=== PATIENT | female | born 1930 | race Hispanic/Latino ===

== ENCOUNTER 2017-12-11 09:56 | Emergency (ER) | payer MEDICARE ==
[~2017-12-11] VITALS: Ht 157.5 cm; Wt 62.6 kg
[~2017-12-11 09:56] MED LIST: ALENDRONATE SOD70 MG PO; ARTIFICIAL TEAR15 ML OP; ATORVASTATIN CA20 MG PO; CEFDINIR300 MG PO; DICLOFENAC SODI75 MG PO; FAMOTIDINE10 MG PO; FLAGYL250 MG PO; FOSAMAX70 MG PO; HYDROXYZINE PAM25 MG PO; LOMOTIL TABLET1 EACH PO; LORATADINE-PSE1 EACH PO; MECLIZINE HCL12.5 MG PO; MECLIZINE HCL25 MG PO; MEDROL4 MG/DOSE-; MELOXICAM7.5 MG PO; METOPROLOL TART25 MG PO; MYRBETRIQ25 MG PO; NAPROXEN250 MG PO; OXYBUTYNIN CHLOR5 M1 PO; PANTOPRAZOLE SO40 MG PO; PREVACID30 MG; REFRESH TEARS15 ML; TRANSDERM-SCOP1 EACH TD; TRIAMCINOLONE A15 G3 TOP; ULTRAM50 MG PO; Z.0.MACROBID 100 M10 PO; Z.1.LANSOPRAZOLE30 M; fentanyl patches
--- OUTSIDE RECORDS SUMMARY | 2017-12-11 09:59 | XMS REPORT ---
Author [facility] Address Unknown Phone Unavailable Care Team Providers Care Bander And Cellophaner Machine Helper Name Role Phone JOSE GRAF Unavailable Unavailable Problems This patient has no known problems. Allergies, Adverse Reactions, Alerts This patient has no known allergies or adverse reactions. Medications This patient has no known medications. Results Test Description Test Time Test Comments Text Results Atomic Results Result Comments CT ABDOMEN/PELVIS W [place] [id number] Patient Name: NICK CURRIE MR #: [id number] : 1930 Age/Sex: 87/F Req #: [id number] Adm Physician: Ordered by: RAMIN PALMER MD Report # : [id number] Location: ER Room/Bed: Procedure: [id number] CT/CT ABDOMEN/PELVIS W Exam Date: Exam Time: REPORT STATUS: Signed EXAM: CT ABDOMEN/PELVIS W DATE: 09/10/2017 8: 28 PM INDICATION: Abdominal pain, nausea, diarrhea, lower abdominal pain COMPARISON: 09/04/2016 TECHNIQUE: The abdomen and pelvis were scanned using a multidetector helical scanner. Coronal and sagittal reformations were obtained. Routine protocol performed. IV Contrast: 100 ml Isovue 370 FINDINGS: LOWER THORAX: Scattered atelectasis with more nodular 1.6 cm right basilar opacity on image 17. Stable visualized 5 mm pulmonary nodules. LIVER/BILIARY: No masses. Common bile duct measures mildly enlarged, 9 mm, new from prior. No intrahepatic biliary ductal dilation. GALLBLADDER: Unremarkable SPLEEN: Unremarkable PANCREAS: Unremarkable ADRENALS: No nodules KIDNEYS: Symmetric perfusion. Stable too small to characterize bilateral renal hypodensities. No hydronephrosis. GI TRACT: Extensive diverticulosis. No bowel obstruction. VESSELS: Moderate atherosclerotic changes. PERITONEUM/RETROPERITONEUM: No free air or fluid LYMPH NODES: No lymphadenopathy REPRODUCTIVE ORGANS/BLADDER: Status post hysterectomy. BONES: Multilevel degenerative changes with multilevel height loss, grossly unchanged. IMPRESSION: 1. No explanation for symptoms. Extensive diverticulosis without diverticulitis. 2. New mild extrahepatic biliary ductal dilation. Correlate with bilirubin and consider MRI/MRCP if there is concern for distal obstructing stone. Signed by: Dr Sara Gomez MD on 9:58 PM Dictated By: SARA GOMEZ MD 57 Transcribed By: JOSE on 09/10/172157 COPY TO: RAMIN PALMER MD
[2017-12-11] MEDS ORDERED: SODIUM CHLORIDE 0.9% 1000ML 1,000 ML IV STA (10:16)
[2017-12-11] MEDS ORDERED: ONDANSETRON HCL INJ 2 MG/ML VIAL IV STA (10:16)
[2017-12-11] MEDS ORDERED: MORPHINE SULFATE 2 MG/ML SYR IV STA (10:16)
[2017-12-11] MEDS ORDERED: PANTOPRAZOLE 40 MG 10ML VIAL IV STA (10:16)
[2017-12-11 10:44] LABS: BASOPHILS # (AUTO) 0.1 (0.0-0.1); BASOPHILS % 0.6 % (0.0-1.0); EOSINOPHILS # (AUTO) 0.4 (0.0-0.4); EOSINOPHILS % 3.9 % (0.0-6.0); HEMATOCRIT 35.4 % (34.2-44.1); HEMOGLOBIN 11.6 g/dL (12.0-16.0); LYMPHOCYTES % 20.3 % (18.0-39.1); MEAN CORPUSCULAR HEMOGLOBIN 30.4 pg (28-32); MEAN CORPUSCULAR HGB CONC 32.8 g/dL (31-35); MEAN CORPUSCULAR VOLUME 92.9 fL (81-99); MONOCYTES # (AUTO) 0.9 (0.2-0.8); MONOCYTES % 8.7 % (4.4-11.3); NEUTROPHILS # (AUTO) 6.5 (2.1-6.9); NEUTROPHILS % 66.3 % (38.7-80.0); PLATELET COUNT 243 x10e3/uL (140-360); RED BLOOD COUNT 3.81 x10e6/uL (3.6-5.1); RED CELL DISTRIBUTION WIDTH 12.9 % (11.7-14.4)
[2017-12-11 10:50] LABS: BILIRUBIN,URINE NEGATIVE (NEGATIVE); KETONES,URINE NEGATIVE (NEGATIVE); LEUKOCYTE ESTERASE ,URINE NEGATIVE (NEGATIVE); NITRITE,URINE NEGATIVE (NEGATIVE); PROTEIN,URINE DIPSTICK NEGATIVE (NEGATIVE); URINE UROBILINOGEN 0.2 mg/dL (0.2 - 1)
[2017-12-11 10:55] LABS: CLARITY,URINE HAZY (CLEAR); COLOR,URINE YELLOW (YELLOW)
[2017-12-11 11:05] LABS: ALBUMIN 3.7 g/dL (3.5-5.0); ANION GAP 11.7 mmol/L (8-16); CREATININE, SERUM 0.9 mg/dL (0.57-1.11); MAGNESIUM 2.2 MG/DL (1.3-2.1); POTASSIUM 3.7 mmol/L (3.5-5.1)
[2017-12-11] MEDS ORDERED: DIATRIZOATE MEGL/DIATRIZOA SOD 30 ML BTL PO ONE (12:09)
[2017-12-11 13:54] LABS: BACTERIA,URINE RARE /HPF; EPITHELIAL CELLS,URINE RARE /LPF
--- NOTE | 2017-12-11 14:05 | Diagnostic Imaging Report ---
PROCEDURE: CT ABDOMEN AND PELVIS WITH CONTRAST TECHNIQUE: The abdomen and pelvis were scanned utilizing a multidetector helical scanner from the diaphragm to the lesser trochanter after the IV administration of 100 cc of Isovue 370 and the oral administration of dilute Gastrografin. Coronal and sagittal multiplanar reformations were obtained. COMPARISON: [facility], CT, CT ABDOMEN/PELVIS WO, 07/29/2011, 0:17. [facility], CT, CT ABDOMEN/PELVIS W, 09/10/2017, 21:27. INDICATIONS: RIGHT LOWER QUADRANT PAIN FINDINGS: LOWER THORAX: Stable 5 mm nodule in the lateral right lower lobe since 2010. Stable scarring in the lingula. HEPATOBILIARY: No focal hepatic lesions. No biliary ductal dilatation. The gallbladder is moderately distended. No stones, sludge, wall thickening, or pericholecystic fluid SPLEEN: No splenomegaly. PANCREAS: No focal masses or ductal dilatation. ADRENALS: No adrenal nodules. KIDNEYS/URETERS: No hydronephrosis, stones, or solid mass lesions. Stable 1.0 cm, mostly exophytic simple cyst in the mid to inferior right kidney (series 2, image 33). PELVIC ORGANS/BLADDER: Bladder is unremarkable. Uterus is absent. No adnexal masses. PERITONEUM / RETROPERITONEUM: No free air or fluid. LYMPH NODES: No lymphadenopathy. VESSELS: Atherosclerotic calcification of the abdominal aorta and iliac vessels. GI TRACT: No bowel dilation or evidence of obstruction. Unchanged extensive descending and sigmoid colon diverticulosis, without diverticulitis. Appendix is not visualized, however, there are no pericecal/pericolonic inflammatory changes. BONES AND SOFT TISSUES: No aggressive lytic lesions. Multilevel degenerative disc changes in the thoracic spine. Generalized osteopenia. Stable lumbar and lower thoracic old Compression deformities. IMPRESSION: 1. no acute abdominopelvic abnormalities. Specifically, no acute abnormal findings in the right lower quadrant to explain the patient's pain. 2. Stable distal descending and sigmoid diverticulosis, without diverticulitis. 3. Stable 5 mm nodule in the lateral right lower lobe since 2010, which is presumed benign. No further followup is indicated. Umair He M.D. Dictated by: Umair He M.D. on 12/11/2017 at 14:14 Electronically approved by: Umair He M.D. on 12/11/2017 at 14:14
[2017-12-11] MEDS ORDERED: SODIUM CHLORIDE 0.9% 50ML 50 ML ONE (14:31)
[2017-12-11] MEDS ORDERED: IOPAMIDOL 370 MG/ML 200 ML INFUS..BTL INJ ONE (14:31)
[2017-12-11 14:47] VITALS: BP 166/67
== END 2017-12-11 14:59 | disposition home or self-care (01) ==
LOC: ER 09:56
DX: R10.84 Generalized abdominal pain (principal); R10.31 Right lower quadrant pain; R19.7 Diarrhea, unspecified
CPT/HCPCS: 36415; 74177; 80053; 81001; 82150; 83690; 83735; 85025; 87086; 99284; J2270; J2405; J7030; Q9967

== ENCOUNTER 2018-01-07 15:10 | Emergency (ER) | payer MEDICARE ==
[~2018-01-07] VITALS: Ht 157.5 cm; Wt 62.6 kg
--- OUTSIDE RECORDS SUMMARY | 2018-01-07 15:13 | XMS REPORT | Continuity of Care Document ---
Author Author [facility] Organization [facility] Address [address] [place] [address] Phone Unavailable Care Team Providers Care Panama Hat Smearer Name Role Phone AFUA TATE DO PCP Insurance Providers Guarantor Giselle Currie Address [address] [place] [address] Email [email or web address] Payer A[employer]na Medicare Replacement Policy Number [id number] Subscriber's Name Giselle Currie Relationship 18 Self / Same As Patient Effective Date 97 Advance Directives Directive Response Recorded Date/Time Does the patient have an advance directive? No 09/11/17 1:04am If yes, is advance directive on file with [facility]? No 09/11/17 1:04am If not on file with [facility] will patient provide a copy? No 09/11/17 1:04am Do you have a Directive to Physician? No 12/11/17 10:37am Do you have a Medical Power of Manager Film? No 12/11/17 10:37am Do you have an out of hospital Do Not Resuscitate Order? No 12/11/17 10:37am Do you have any special needs we should be aware of? No 12/11/17 10:37am Do you have a support person here with you today? Yes 12/11/17 10:37am Did patient receive Notice of Privacy Practices? Yes 12/11/17 10:37am Did patient receive patient rights and responsibilities? Yes 12/11/17 10:37am Problems Medical Problem Onset Date Status Abdominal pain Unknown Atrial fibrillation 07/03/2016 Acute Atrial fibrillation, new onset 07/03/2016 Acute Dehydration Unknown Dizziness Unknown Acute Elevated LFTs Unknown Hematochezia Unknown Vomiting and diarrhea Unknown Weakness Unknown Acute Medications Current Home Medications Medication Dose Units Route Directions Days Qty Instructions Start Date Atorvastatin Calcium 20 Mg Tablet 20 Mg Oral Bedtime 30 Tab Metoprolol Tartrate 25 Mg Tablet 12.5 Mg Oral Twice A Day Pantoprazole Sodium (Protonix) 40 Mg Tablet. 40 Mg Oral Daily Past Home Medications Medication Directions Ordered Status Alendronate Sodium (Fosamax) 70 Mg Tablet, 70 Mg Oral Weekly Discontinued Alendronate Sodium 70 Mg Tablet, 70 Mg Oral Once Discontinued Carboxymethylcellulose Sodium (Refresh Tears) 15 Ml Drops, As Needed Discontinued Cefdinir (Omnicef) 300 Mg Capsule, Oral Twice A Day Discontinued Dextran 70/Hypromellose (Artificial Tears Eye Drops) 15 Ml Drops, 1 Drop Ophthalmic Every Two Hours as needed for Dry Eye Discontinued Diclofenac Sodium 75 Mg Tablet., 75 Mg Oral Daily Discontinued Diphenoxylate Hcl/Atropine (Lomotil Tablet) 1 Each Tablet, 2.5 Mg Oral Three Times A Day Discontinued Famotidine 10 Mg Tablet, 10 Mg Oral As Needed Discontinued Fentanyl Patches , Q Three Days 12MCG/H Discontinued Hydroxyzine Pamoate 25 Mg Capsule, 25 Mg Oral Twice A Day Discontinued Lansoprazole (Prevacid) 30 Mg Capsule.dr, Daily Discontinued Lansoprazole 30 Mg Capsule.dr, Daily Discontinued Loratadine/Pseudoephedrine (Loratadine-Pseudoephed 10-240) 1 Each Tab.er.24h, 10 Oral Every Morning Discontinued Meclizine Hcl 25 Mg Tablet, Oral Twice A Day as needed for Dizziness Discontinued Meclizine Hcl 25 Mg Tablet, 25 Mg Oral As Needed Discontinued Meloxicam 7.5 Mg Tablet, 15 Mg Oral Daily Discontinued Methylprednisolone (Medrol Dose Pack) 4 Mg/Dose Pack Tab, Discontinued Metronidazole (Flagyl) 250 Mg Tablet, 250 Mg Oral Three Times A Day Discontinued Mirabegron (Myrbetriq) 25 Mg Tab.er.24h, 25 Mg Oral Daily Discontinued Naproxen 250 Mg Tablet, 375 Mg Oral Twice A Day Discontinued Nitrofurantoin/Nitrofuran Mac (Macrobid 100 Mg Capsule) 100 Mg Capsule, 100 Mg Oral Daily Discontinued Oxybutynin Chloride (Oxybutynin Chloride Er) 5 Mg Tab.er.24, 15 Mg Oral Daily Discontinued Scopolamine Hydrobromide (Transderm-Scop) 1 Each Patch.td72, 1.5 Mg Transderm As Needed Discontinued Tramadol Hcl (Ultram) 50 Mg Tablet, 50 Mg Oral Daily Discontinued Triamcinolone (Triamcinolone Acetonide) 15 Gm Oint, Gm Topically Twice A Day Discontinued Family History Relationship Condition Age at Onset Recorded Date/Time 11 Brother FH: cancer of digestive organ Not Recorded 07/03/2016 6:46pm 09 Sister FH: cancer of digestive organ Not Recorded 07/03/2016 6:46pm Social History Social History Problem Response Recorded Date/Time Onset Date Status Hx Psychiatric Problems No 09/11/2017 1:04am Not Applicable Not Applicable Hx Eating Disorder No 09/11/2017 1:04am Not Applicable Not Applicable Hx Substance Use Disorder No 09/11/2017 1:04am Not Applicable Not Applicable Hx Depression No 09/11/2017 1:04am Not Applicable Not Applicable Hx Alcohol Use No 09/11/2017 1:04am Not Applicable Not Applicable Hx Substance Use Treatment No 09/11/2017 1:04am Not Applicable Not Applicable Hx Physical Abuse No 09/11/2017 1:04am Not Applicable Not Applicable Smoking Status Start Date Stop Date Never Smoker Hospital Discharge Instructions No hospital discharge instruction information available. Plan of Care Discharge Date 12/11/17 2:59pm Disposition HOME, SELF-CARE Condition at Discharge Stable Instructions/Education Provided Abdominal Pain - Adult Prescriptions See Medication Section Referrals AFUA TATE DO Order Date: Call for an appointment Address: [address] [place] [id number] Additional Instructions/Education Take medication as prescribed Follow up with GI doctor in a couple of days Functional Status No functional status information available. Allergies, Adverse Reactions, Alerts Allergen Type Severity Reaction Status Last Updated Penicillin Allergy Unknown Active 09/10/17 Codeine Allergy Mild itch Active 12/11/17 Immunizations No immunization information available. Vital Signs Acute Vital Signs Vital Response Date/Time Temperature (Fahrenheit) 98.9 degrees F (97.6 - 99.5) 09/12/2017 4:00pm Pulse Pulse Rate (adult) 52 bpm (60 - 90) 12/11/2017 2:47pm Respiratory Rate 20 bpm (12 - 24) 12/11/2017 2:47pm Blood Pressure 166/67 mm Hg 12/11/2017 2:47pm Height 5 ft 2 in 12/11/2017 10:06am Weight 138 lb 12/11/2017 10:06am Body Mass Index 25.2 kg/m^2 12/11/2017 10:06am Results Laboratory Results Test Name Result Units Flags Reference Collection Date/Time Result Date/ Time Comments Urine Hyaline Casts 0-1 0-1 09/10/2017 8:20pm 09/10/2017 9:12pm Urine Mucus FEW H RARE 09/10/2017 8:20pm 09/10/2017 9:12pm Vitamin B12 Level 591 pg/mL 213-816 09/11/2017 6:36am 09/11/2017 1: 19pm Folate 31.9 ng/mL H 7.0-15.4 09/11/2017 6:36am 09/11/2017 2:08pm Thyroid Stimulating Hormone (TSH) 1.246 uIU/mL 0.350-4.940 09/11/2017 6: 36am 09/11/2017 12:56pm White Blood Count 9.76 x10e3/uL 4.8-10.8 12/11/2017 10:32am 12/11/2017 10:54am Red Blood Count 3.81 x10e6/uL 3.6-5.1 12/11/2017 10:32am 12/11/2017 10: 54am Hemoglobin 11.6 g/dL L 12.0-16.0 12/11/2017 10:32am 12/11/2017 10:54am Hematocrit 35.4 % 34.2-44.1 12/11/2017 10:32am 12/11/2017 10:54am Mean Corpuscular Volume 92.9 fL 81-99 12/11/2017 10:32am 12/11/2017 10: 54am Mean Corpuscular Hemoglobin 30.4 pg 28-32 12/11/2017 10:32am 2017 10:54am Mean Corpuscular Hemoglobin Concent 32.8 g/dL 31-35 12/11/2017 10:3212/11/2017 10:54am Red Cell Distribution Width 12.9 % 11.7-14.4 12/11/2017 10:322017 10:54am Platelet Count 243 x10e3/uL 140-360 12/11/2017 10:12/11/2017 10: 54am Neutrophils (%) (Auto) 66.3 % 38.7-80.0 12/11/2017 10:am 12/11/2017 10:54am Lymphocytes (%) (Auto) 20.3 % 18.0-39.1 12/11/2017 10:12/11/2017 10:54am Monocytes (%) (Auto) 8.7 % 4.4-11.3 12/11/2017 10:am 12/11/2017 10: 54am Eosinophils (%) (Auto) 3.9 % 0.0-6.0 12/11/2017 10:am 12/11/2017 10: 54am Basophils (%) (Auto) 0.6 % 0.0-1.0 12/11/2017 10:am 12/11/2017 10: 54am IM GRANULOCYTES % 0.2 % 0.0-1.0 12/11/2017 10:12/11/2017 10:54am Neutrophils # (Auto) 6.5 2.1-6.9 12/11/2017 10:am 12/11/2017 10: 54am Lymphocytes # (Auto) 2.0 1.0-3.2 12/11/2017 10:am 12/11/2017 10: 54am Monocytes # (Auto) 0.9 H 0.2-0.8 12/11/2017 10:am 12/11/2017 10: 54am Eosinophils # (Auto) 0.4 0.0-0.4 12/11/2017 10:32am 12/11/2017 10: 54am Basophils # (Auto) 0.1 0.0-0.1 12/11/2017 10:32am 12/11/2017 10:54am Absolute Immature Granulocyte (auto 0.02 x10e3/uL 0-0.1 12/11/2017 10: 32am 12/11/2017 10:54am Urine Color YELLOW YELLOW 12/11/2017 10:16am 12/11/2017 10:55am Urine Clarity HAZY CLEAR 12/11/2017 10:16am 12/11/2017 10:55am Urine Specific [place] 1.015 1.010-1.025 12/11/2017 10:16am 2017 10:55am Urine pH 6 5 - 7 12/11/2017 10:16am 12/11/2017 10:55am Urine Leukocyte Esterase NEGATIVE NEGATIVE 12/11/2017 10:16am 2017 10:55am Urine Nitrite NEGATIVE NEGATIVE 12/11/2017 10:16am 12/11/2017 10: 55am Urine Protein NEGATIVE NEGATIVE 12/11/2017 10:16am 12/11/2017 10: 55am Urine Glucose (UA) NEGATIVE NEGATIVE 12/11/2017 10:16am 12/11/2017 10 :55am Urine Ketones NEGATIVE NEGATIVE 12/11/2017 10:16am 12/11/2017 10: 55am Urine Urobilinogen 0.2 mg/dL 0.2 - 1 12/11/2017 10:16am 12/11/2017 10: 55am Urine Bilirubin NEGATIVE NEGATIVE 12/11/2017 10:16am 12/11/2017 10: 55am Urine Blood 2+ H NEGATIVE 12/11/2017 10:16am 12/11/2017 10:55am Urine WBC NONE /HPF 0-5 12/11/2017 10:16am 12/11/2017 1:54pm Urine RBC 6-10 /HPF H 0-5 12/11/2017 10:16am 12/11/2017 1:54pm Urine Bacteria RARE /HPF NONE 12/11/2017 10:16am 12/11/2017 1:54pm Urine Epithelial Cells RARE /LPF NONE 12/11/2017 10:16am 12/11/2017 1: 54pm Sodium Level 140 mmol/L 136-145 12/11/2017 10:32am 12/11/2017 11:25am Potassium Level 3.7 mmol/L 3.5-5.1 12/11/2017 10:32am 12/11/2017 11: 25am Chloride Level 108 mmol/L H 98-107 12/11/2017 10:3212/11/2017 11: 25am Carbon Dioxide Level 24 mmol/L 22-29 12/11/2017 10:3212/11/2017 11: 25am Anion Gap 11.7 mmol/L 8-16 12/11/2017 10:3212/11/2017 11:25am Blood Urea Nitrogen 13 mg/dL 7-12/11/2017 10:3212/11/2017 11: 25am Creatinine 0.90 mg/dL 0.57-1.11 12/11/2017 10:3212/11/2017 11:25am BUN/Creatinine Ratio 14 6-25 12/11/2017 10:3212/11/2017 11:25am Estimat Glomerular Filtration Rate 60 ML/MIN 60- 12/11/2017 10:12/2017 11:25am Ranges were taken from the National Kidney Disease Education Program and the National Kidney Foundation literature. Reference ranges: 60 or greater: Normal 16-59 (for 3 consecutive months): Chronic kidney disease 15 or less: Kidney failure Glucose Level 104 mg/dL 74-118 12/11/2017 10:12/11/2017 11:25am Calcium Level 9.0 mg/dL 8.4-10.2 12/11/2017 10:3212/11/2017 11:25am Magnesium Level 2.2 MG/DL H 1.3-2.1 12/11/2017 10:12/11/2017 11: 25am Total Bilirubin 0.4 mg/dL 0.2-1.2 12/11/2017 10:3212/11/2017 11: 25am Aspartate Amino Transf (AST/SGOT) 19 IU/L 5-34 12/11/2017 10:3212/11 11:25am Alanine Aminotransferase (ALT/SGPT) 11 IU/L 0-55 12/11/2017 10:3212/2017 11:25am Total Protein 7.4 g/dL 6.5-8.1 12/11/2017 10:3212/11/2017 11:25am Albumin 3.7 g/dL 3.5-5.0 12/11/2017 10:3212/11/2017 11:25am Globulin 3.7 g/dL H 2.3-3.5 12/11/2017 10:32am 12/11/2017 11:25am Albumin/Globulin Ratio 1.0 0.8-2.0 12/11/2017 10:32am 12/11/2017 11: 25am Alkaline Phosphatase 68 IU/L 40-150 12/11/2017 10:32am 12/11/2017 11: 25am Amylase Level 62 U/L 25-125 12/11/2017 10:32am 12/11/2017 11:25am Lipase 18 U/L 8-78 12/11/2017 10:32am 12/11/2017 11:25am Procedures Procedure Status Date Provider(s) Computed tomography of abdomen and pelvis with contrast Active 09/10/17 RAMIN PALMER MD Magnetic resonance cholangiopancreatography (MRCP) without contrast Active RAMIN PALMER MD Computed tomography of abdomen and pelvis with contrast Active 12/11/17 FLACO MORTENSEN Encounters Encounter Location Arrival/Admit Date Discharge/Depart Date Attending Provider Departed Emergency Room [facility] 12/11/17 9:56am 2:59pm JOSE GRAF MD Discharged Inpatient [facility] 09/10/17 11:13pm 5:49pm ROBERTO CARLOS VILLANUEVA MD Departed Emergency Room [facility] 05/07/17 1:22pm 7:46pm JOSE GRAF MD
[2018-01-07 20:29] LABS: BILIRUBIN,URINE NEGATIVE (NEGATIVE); CLARITY,URINE SL CLOUDY (CLEAR); COLOR,URINE YELLOW (YELLOW); KETONES,URINE NEGATIVE (NEGATIVE); LEUKOCYTE ESTERASE ,URINE 2+ (NEGATIVE); NITRITE,URINE NEGATIVE (NEGATIVE); PROTEIN,URINE DIPSTICK NEGATIVE (NEGATIVE); URINE UROBILINOGEN 0.2 mg/dL (0.2 - 1)
[2018-01-07 20:42] LABS: BACTERIA,URINE RARE /HPF; EPITHELIAL CELLS,URINE FEW /LPF
== END 2018-01-07 20:55 | disposition home or self-care (01) ==
LOC: ER 15:10
DX: N76.0 Acute vaginitis (principal); B37.3 Candidiasis of vulva and vagina
CPT/HCPCS: 81001; 99282

== ENCOUNTER 2018-01-13 16:52 | Emergency (ER) | payer MEDICARE ==
[~2018-01-13] VITALS: Ht 157.5 cm; Wt 62.6 kg
[2018-01-13] MEDS ORDERED: FLECTOR1 EACH PO (17:19)
--- OUTSIDE RECORDS SUMMARY | 2018-01-13 17:39 | XMS REPORT | Continuity of Care Document ---
Author Author [facility] Organization [facility] Address [address] [place] [place] [address] Phone Unavailable Care Team Providers Care Studio Assistant Name Role Phone AFUA TATE DO PCP Insurance Providers Guarantor Giselle Currie Address [address] [place] [address] Email [email or web address] Payer [employer] Medicare Replacement Policy Number [id number] Subscriber's Name Giselle Currie Relationship 18 Self / Same As Patient Effective Date 97 Advance Directives Directive Response Recorded Date/Time Does the patient have an advance directive? No 09/11/17 1:04am If yes, is advance directive on file with [facility]? No 09/11/17 1:04am If not on file with [facility] will patient provide a copy? No 09/11/17 1:04am Do you have a Directive to Physician? No 01/07/18 6:48pm Do you have a Medical Power of Health And Safety Director? No 01/07/18 6:48pm Do you have an out of hospital Do Not Resuscitate Order? No 01/07/18 6:48pm Do you have any special needs we should be aware of? No 01/07/18 6:48pm Do you have a support person here with you today? Yes 01/07/18 6:48pm Did patient receive Notice of Privacy Practices? Yes 01/07/18 6:48pm Did patient receive patient rights and responsibilities? Yes 01/07/18 6:48pm Problems Medical Problem Onset Date Status Abdominal [...] A Day Pantoprazole Sodium (Protonix) 40 Mg Tablet.dr 40 Mg Oral Daily Past Home Medications [...] No 09/11/2017 1:04am Not Applicable Not Applicable Hospital Discharge Instructions No hospital discharge instruction information available. Plan of Care Discharge Date 01/07/18 8:55pm Disposition HOME, SELF-CARE Condition at Discharge Stable Instructions/Education Provided Yeast Infection Forms Provided Work/School Excuse Prescriptions See Medication Section Referrals AFUA TATE DO Address: [address] [place] [address] Additional Instructions/Education 1. follow up with your doctor in 1-2 days without fail 2. return to ed as needed Functional Status No functional status information available. [...] 12/11/2017 2:47pm Height 5 ft 2 in 01/07/2018 4:52pm Weight 138 lb 01/07/2018 4:52pm Body Mass Index 25.2 kg/m^2 01/07/2018 4:52pm Results Laboratory Results Test Name Result Units [...] Corpuscular Hemoglobin Concent 32.8 g/dL 31-35 12/11/2017 10:32am 12/11/2017 10:54am Red Cell Distribution Width 12.9 % 11.7-14.4 12/11/2017 10:32am 2017 10:54am Platelet Count 243 x10e3/uL 140-360 12/11/2017 10:32am 12/11/2017 10: 54am Neutrophils (%) (Auto) 66.3 % 38.7-80.0 12/11/2017 10:32am 12/11/2017 10:54am Lymphocytes (%) (Auto) 20.3 % 18.0-39.1 12/11/2017 10:32am 12/11/2017 10:54am Monocytes (%) (Auto) 8.7 % 4.4-11.3 12/11/2017 10:32am 12/11/2017 10: 54am Eosinophils (%) (Auto) 3.9 % 0.0-6.0 12/11/2017 10:32am 12/11/2017 10: 54am Basophils (%) (Auto) 0.6 % 0.0-1.0 12/11/2017 10:32am 12/11/2017 10: 54am IM GRANULOCYTES % 0.2 % 0.0-1.0 12/11/2017 10:32am 12/11/2017 10:54am Neutrophils # (Auto) 6.5 2.1-6.9 12/11/2017 10:32am 12/11/2017 10: 54am Lymphocytes # (Auto) 2.0 1.0-3.2 12/11/2017 10:32am 12/11/2017 10: 54am Monocytes # (Auto) 0.9 H 0.2-0.8 12/11/2017 10:32am 12/11/2017 10: 54am Eosinophils # (Auto) 0.4 0.0-0.4 12/11/2017 10:32am 12/11/2017 10: 54am Basophils # (Auto) 0.1 0.0-0.1 12/11/2017 10:32am 12/11/2017 10:54am Absolute Immature Granulocyte (auto 0.02 x10e3/uL 0-0.1 12/11/2017 10: 32am 12/11/2017 10:54am Sodium Level 140 mmol/L 136-145 12/11/2017 10:32am 12/11/2017 11:25am Potassium Level 3.7 mmol/L 3.5-5.1 12/11/2017 10:32am 12/11/2017 11: 25am Chloride Level 108 mmol/L H 98-107 12/11/2017 10:32am 12/11/2017 11: 25am Carbon Dioxide Level 24 mmol/L 22-29 12/11/2017 10:32am 12/11/2017 11: 25am Anion Gap 11.7 mmol/L 8-16 12/11/2017 10:32am 12/11/2017 11:25am Blood Urea Nitrogen 13 mg/dL 7-12/11/2017 10:32am 12/11/2017 11: 25am Creatinine 0.90 mg/dL 0.57-1.11 12/11/2017 10:32am 12/11/2017 11:25am BUN/Creatinine Ratio 14 6-25 12/11/2017 10:32am 12/11/2017 11:25am Estimat Glomerular Filtration Rate 60 ML/MIN 60- 12/11/2017 10:32am 12/2017 11:25am Ranges were taken from the National Kidney Disease Education Program and the National Kidney Foundation literature. Reference ranges: 60 or greater: Normal 16-59 (for 3 consecutive months): Chronic kidney disease 15 or less: Kidney failure Glucose Level 104 mg/dL 74-118 12/11/2017 10:32am 12/11/2017 11:25am Calcium Level 9.0 mg/dL 8.4-10.2 12/11/2017 10:32am 12/11/2017 11:25am Magnesium Level 2.2 MG/DL H 1.3-2.1 12/11/2017 10:32am 12/11/2017 11: 25am Total Bilirubin 0.4 mg/dL 0.2-1.2 12/11/2017 10:32am 12/11/2017 11: 25am Aspartate Amino Transf (AST/SGOT) 19 IU/L 5-34 12/11/2017 10:32am 12/11 11:25am Alanine Aminotransferase (ALT/SGPT) 11 IU/L 0-55 12/11/2017 10:32am 12/2017 11:25am Total Protein 7.4 g/dL 6.5-8.1 12/11/2017 10:32am 12/11/2017 11:25am Albumin 3.7 g/dL 3.5-5.0 12/11/2017 10:32am 12/11/2017 11:25am Globulin 3.7 g/dL H 2.3-3.5 12/11/2017 10:32am 12/11/2017 11:25am Albumin/Globulin Ratio 1.0 0.8-2.0 12/11/2017 10:32am 12/11/2017 11: 25am Alkaline Phosphatase 68 IU/L 40-150 12/11/2017 10:32am 12/11/2017 11: 25am Amylase Level 62 U/L 25-125 12/11/2017 10:32am 12/11/2017 11:25am Lipase 18 U/L 8-78 12/11/2017 10:32am 12/11/2017 11:25am Urine Color YELLOW YELLOW 01/07/2018 6:00pm 01/07/2018 8:29pm Urine Clarity SL CLOUDY CLEAR 01/07/2018 6:00pm 01/07/2018 8:29pm Urine Specific [place] 1.015 1.010-1.025 01/07/2018 6:00pm 2017 8:29pm Urine pH 6 5 - 7 01/07/2018 6:00pm 01/07/2018 8:29pm Urine Leukocyte Esterase 2+ H NEGATIVE 01/07/2018 6:00pm 01/07/2018 8: 29pm Urine Nitrite NEGATIVE NEGATIVE 01/07/2018 6:00pm 01/07/2018 8:29pm Urine Protein NEGATIVE NEGATIVE 01/07/2018 6:00pm 01/07/2018 8:29pm Urine Glucose (UA) NEGATIVE NEGATIVE 01/07/2018 6:00pm 01/07/2018 8: 29pm Urine Ketones NEGATIVE NEGATIVE 01/07/2018 6:00pm 01/07/2018 8:29pm Urine Urobilinogen 0.2 mg/dL 0.2 - 1 01/07/2018 6:00pm 01/07/2018 8: 29pm Urine Bilirubin NEGATIVE NEGATIVE 01/07/2018 6:00pm 01/07/2018 8: 29pm Urine Blood 3+ H NEGATIVE 01/07/2018 6:00pm 01/07/2018 8:29pm Urine WBC 6-10 /HPF H 0-5 01/07/2018 6:00pm 01/07/2018 8:42pm Urine RBC 11-20 /HPF H 0-5 01/07/2018 6:00pm 01/07/2018 8:42pm Urine Bacteria RARE /HPF NONE 01/07/2018 6:00pm 01/07/2018 8:42pm Urine Epithelial Cells FEW /LPF NONE 01/07/2018 6:00pm 01/07/2018 8: 42pm Procedures Procedure Status Date Provider(s) Computed tomography of abdomen and pelvis with contrast Active 09/10/17 RAMIN PALMER MD Magnetic resonance cholangiopancreatography (MRCP) without contrast Active RAMIN PALMER MD Computed tomography of abdomen and pelvis with contrast Active 12/11/17 FLACO MORTENSEN Encounters Encounter Location Arrival/Admit Date Discharge/Depart Date Attending Provider [facility] 01/07/18 3:10pm 8:55pm CHRISS ROBERTSON MD Departed Emergency Room [facility] 12/11/17 9:56am 2:59pm JOSE GRAF MD [facility] 09/10/17 11:13pm 5:49pm ROBERTO CARLOS VILLANUEVA MD [facility] 05/07/17 1:22pm 7:46pm JOSE GRAF MD
[2018-01-13 18:03] VITALS: BP 134/54
== END 2018-01-13 18:18 | disposition home or self-care (01) ==
LOC: ER 16:52
DX: B37.3 Candidiasis of vulva and vagina (principal); Z86.73 Personal history of transient ischemic attack (TIA), and cerebral infarction without residual deficits
CPT/HCPCS: 99283

== ENCOUNTER 2018-11-30 15:37 | Observation (INO) | payer MEDICARE ==
[~2018-11-30] VITALS: Ht 157.5 cm; Wt 54.4 kg
[~2018-11-30 15:37] MED LIST changes: +FLECTOR1 EACH PO
--- OUTSIDE RECORDS SUMMARY | 2018-11-30 15:41 | XMS REPORT | Summary of Care ---
Author Author [facility] [place] Organization [facility] [place] Address Unknown Phone Unavailable Encounter HQ Encntr_lorrie(FIN) [phone] Date(s): 11/28/15 - 11/28/15 [facility] [place] [address] [place] [address] [phone] Discharge Disposition: Home Attending Physician: Afshin Marie MD Vital Signs No data available for this section Problem List No data available for this section Allergies, Adverse Reactions, Alerts Substance Reaction Severity Status CODINE Active PCN Active Medications No data available for this section Results No data available for this section Immunizations No data available for this section Procedures No data available for this section Social History No data available for this section Assessment and Plan No data available for this section
--- OUTSIDE RECORDS SUMMARY | 2018-11-30 15:41 | XMS REPORT | Summary of Care ---
Author Author [facility] [place] Organization [facility] [place] Address Unknown Phone Unavailable Encounter HQ Encntr_aliteofilo(FIN) [phone] Date(s): 08/04/17 - 08/04/17 [facility] [place] [address] [place] [phone] Discharge Disposition: Home or Self Care Attending Physician: Afshin Marie MD Vital Signs [...]
--- OUTSIDE RECORDS SUMMARY | 2018-11-30 15:41 | XMS REPORT | Summary of Care ---
Author Author [facility] [place] Organization [facility] [place] Address Unknown Phone Unavailable Encounter HQ Encntr_lorrie(FIN) [phone] Date(s): 04/21/16 - 04/21/16 [facility] [place] [address] [place] [id number] [phone] Discharge Disposition: Home Attending Physician: Afshin Marie [...]
--- OUTSIDE RECORDS SUMMARY | 2018-11-30 15:41 | XMS REPORT | Continuity of Care Document ---
Author Author [facility] Interface Address Unknown Phone Unavailable Problems Problem Status Onset Date Classification Date Reported Comments Source M62.81 MUSCLE WEAKNESS 04/28/2018 Diagnosis 05/14/2018 [place] [facility] [place] [facility] Walking disability 04/27/2018 Diagnosis 05/14/2018 SNF: [facility] S22.089S UNSPECIFIED FRACTURE OF T11-T12 VERTEBRA, SEQUELA 04/27/2018 Diagnosis 05/14/2018 SNF: [facility] G89.29 OTHER CHRONIC PAIN 04/27/2018 Diagnosis 05/14/2018 SNF: [facility] Z91.81 HISTORY OF FALLING 04/27/2018 Diagnosis 05/14/2018 SNF: [facility] R53.1 WEAKNESS 04/27/2018 Diagnosis 05/14/2018 [place] [facility] [place] [facility] ACUTE UTI,PHYSICAL DECONDITIONING,WEAKNE Active 04/22/2018 [facility] pain of right hip 04/13/2018 04/16/2018 [facility] BACK PAIN Active 04/13/2018 [facility] S72.92XS UNSPECIFIED FRACTURE OF LEFT FEMUR, SEQUELA 03/11/2018 Diagnosis 05/14/2018 SNF: [facility] W19.XXXS UNSPECIFIED FALL, SEQUELA 03/11/2018 Diagnosis 05/14/2018 SNF: [facility] I10 ESSENTIAL HYPERTENSION 03/11/2018 Diagnosis 05/14/2018 SNF: [facility] 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 03/11/2018 Diagnosis 05/14/2018 SNF: [facility] 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 03/11/2018 Diagnosis 05/14/2018 SNF: [facility] INTRTROCHANTERIC FRACTURE OF FEMUR Active 03/04/2018 [facility] FX HIP Active 03/04/2018 [facility] R91.8 - OTHER NONSPECIFIC ABNORMAL FIN Active 04/25/2016 RADHA Santiago D64.9 - "ANEMIA, UNSPECIFIED" Active 04/21/2016 RADHA Santiago DISPLACED INTERTROCHANTERIC FRACTURE OF Active [facility] URINARY TRACT INFECTION, SITE NOT SPECIF Active [facility] OTHER MALAISE Active [facility] WEAKNESS Active [facility] Medications Medication Details Route Status Patient Instructions Ordering Provider Order Date Source Ibuprofen Tablet 800 MG Give 1 tablet by mouth every 8 hours as needed for Pain Oral Active 04/29/2018 SNF: [facility] Cipro Tablet 500 MG Give 1 tablet by mouth two times a day for UTI for 10 Days Oral Active 04/28/2018 [facility] Tylenol with Codeine #3 Tablet 300-30 MG Give 1 tablet by mouth every 8 hours as needed for PAIN Oral Active 04/28/2018 SNF: [facility] Protonix Tablet Delayed Release 40 MG Give 1 tablet by mouth one time a day for gerd Oral Active 04/28/2018 [facility]: [facility] Metoprolol Tartrate Tablet Give 12.5 mg by mouth two times a day for HTN Hold for SBP less than 110, HR less than 60 Oral Active 04/28/2018 SNF: [facility] Lidocaine Patch 5 % Apply to hip topically one time a day for pain and remove per schedule External Active 04/28/2018 SN[facility]: [facility] Cefdinir Capsule 300 MG Give 1 capsule by mouth two times a day for UTI for 7 Days Oral Inactive 04/28/2018 SN[facility]: [facility] Cyclobenzaprine HCl Tablet 5 MG Give 1 tablet by mouth every 8 hours as needed for Spasm Oral Active 04/28/2018 SNF: [facility] cefdinir 300 MG Oral Capsule 300 mg=1 cap, PO, [id number], X 7 day, # 14 cap, 0 Refill(s), Pharmacy: [facility]/pharmacy #[id number] Active 04/27/2018 [facility] DME Prescription See Instructions, MISC, ONCE, Use TSLO brace when upright., # 1 ea, 0 Refill(s) Active 04/27/2018 [facility] ocular lubricant solution Each Affected Eye, QID, PRN Dry Eyes, 0 Refill(s) Active 04/27/2018 [facility] Artificial Tears 1 drp, Route: Each Affected Eye, QID, Drug form: SOLN, PRN Dry Eyes, Start date: 04/27/18 13:11:00 CDT, Duration: 30 day, Stop date: 05/27/18 13:10:00 CDT Inactive 04/27/2018 [facility] Vantin 200 mg, Route: PO, Drug form: TAB, [id number], Dosing Weight 59.545, kg, Start date: 04/25/18 14:00:00 CDT, Duration: 14 day, Stop date: 05/09/18 2:00:00 CDT, ABX Indication: Urinary Tract Infection Inactive 04/25/2018 [facility] cefdinir 300 mg, 1 cap, Route: PO, Drug form: CAP, [id number], Start date: 04/25/18 14:00:00 CDT, Duration: 14 day, Stop date: 05/09/18 2:00:00 CDTNotes: (Same As: Omnicef) No Longer Active 04/25/2018 [facility] Rocephin 1 gm, Route: IVP, [id number], Dosing Weight 59.545, kg, Start date: 04/23/18 21:00:00 CDT, Duration: 7 day, Stop date: 04/29/18 21:00:00 CDT, ABX Indication: Genital Tract InfectionNotes: (Same As: Rocephin). Use with 100 mL NS and infuse over 30 min MEDICATION WASTE Product Size: 1000 mg Product Wasted: ___ mg No Longer Active 04/24/2018 [facility] Acetaminophen 325 MG / Hydrocodone Bitartrate 5 MG Oral Tablet [[place] 5/325] 1 tab, Route: PO, Drug Form: TAB, Dosing Weight 59.545, kg, Q4H, PRN Pain Score 1-3, Start date: 04/23/18 15:42:00 CDT, Duration: 30 day, Stop date: 05/23/18 15:41:00 CDTNotes: (Same as: [place] 325/5) Do not exceed 4gm/day of acetaminophen. No Longer Active 04/23/2018 [facility] Lovenox 40 mg, 0.4 mL, Route: SUB-Q, Drug form: INJ, [id number], Dosing Weight 59.545, kg, Start date: 04/23/18 9:00:00 CDT, Duration: 30 day, Stop date: 05/22/18 9:00:00 CDTNotes: (Same as: Lovenox) No Longer Active 04/23/2018 [facility] Protonix 40 mg, 1 tab, Route: PO, Drug form: ECTAB, Daily, Dosing Weight 59.545, kg, Start date: 04/23/18 9:00:00 CDT, Duration: 30 day, Stop date: 05/22/18 9:00:00 CDTNotes: Tablet should not be chewed or crushed. (Same as: Protonix) No Longer Active 04/23/2018 [facility] Lopressor 12.5 mg, 0.5 tab, Route: PO, Drug form: TAB, Q12H, Dosing Weight 59.545, kg, Start date: 04/23/18 9:00:00 CDT, Duration: 30 day, Stop date: 05/22/18 21:00:00 CDTNotes: (Same as: Lopressor) No Longer Active 04/23/2018 [facility] Lidocaine 0.05 MG/MG Transdermal Patch 1 patch, Route: TOP, Daily, Drug form: FILM, Start date: 04/23/18 9:00:00 CDT, Duration: 30 day, Stop date: 05/22/18 9:00:00 CDTNotes: Apply only once for up to 12 hours in a 24-hour period (12 hours on and 12 hours off). (Same as: Lidoderm) "Remove old patch before application of new patch" No Longer Active 04/23/2018 [facility] cyclobenzaprine 5 mg, 0.5 tab, Route: PO, Drug form: TAB, TID, Dosing Weight 59.545, kg, PRN Spasm, Start date: 04/23/18 4:27:00 CDT, Duration: 30 day, Stop date: 05/23/18 4:26:00 CDTNotes: (Same As: Flexeril) No Longer Active 04/23/2018 [facility] Acetaminophen 650 mg, 2 tab, Route: PO, Drug form: TAB, Q4H, Dosing Weight 59.545, kg, PRN Pain 1-3/Temp > 100.4 F, Start date: 04/22/18 23:07:00 CDT, Duration: 30 day, Stop date: 05/22/18 23:06:00 CDTNotes: Do not exceed 4 gm/day. (Same as: Tylenol) No Longer Active 04/23/2018 [facility] Ondansetron 4 mg, 2 mL, Route: IVP, Drug form: INJ, Q6H, Dosing Weight 59.545, kg, PRN Nausea & Vomiting, Start date: 04/22/18 23:07:00 CDT, Duration: 30 day, Stop date: 05/22/18 23:06:00 CDTNotes: (Same as: Zofran) MEDICATION WASTE Product Size: 4 mg Product Wasted: ___ mg No Longer Active 04/23/2018 [facility] Ceftriaxone 1 gm, Route: IVPB, ONCE, Dosing Weight 56.818, kg, Priority: STAT, Start date: 04/22/18 20:30:00 CDT, Stop date: 04/22/18 20:30:00 CDT, ABX Indication: Urinary Tract Infection Inactive 04/23/2018 [facility] Acetaminophen 325 MG / Hydrocodone Bitartrate 5 MG Oral Tablet [[place] 5/325] 1 tab, Route: PO, Drug Form: TAB, Dosing Weight 60.909, kg, ONCE, STAT, Start date: 04/13/18 15:48:00 CDT, Stop date: 04/13/18 15:48:00 CDTNotes: (Same as: [place] 325/5) Do not exceed 4gm/day of acetaminophen. Inactive 04/13/2018 [facility] Tylenol 975 mg, 3 tab, Route: PO, Drug form: TAB, ONCE, Dosing Weight 60.909, kg, Priority: STAT, Start date: 04/13/18 14:39:00 CDT, Stop date: 04/13/18 14:39:00 CDTNotes: Do not exceed 4 gm/day. (Same as: Tylenol) Inactive 04/13/2018 [facility] Ibuprofen 800 mg, 2 tab, Route: PO, Drug form: TAB, ONCE, Dosing Weight 60.909, kg, Priority: STAT, Start date: 04/13/18 14:39:00 CDT, Stop date: 04/13/18 14:39:00 CDTNotes: (Same as: Motrin) "Do Not Crush" Give with food. Inactive 04/13/2018 [facility] Cipro Tablet 500 MG Give 500 mg by mouth two times a day for diverticulitis needs stop date Oral Active 03/28/2018 SNF: [facility] MetroNIDAZOLE Tablet 500 MG Give 500 mg by mouth three times a day for diverticulitis needs stop date Oral Active 03/28/2018 SNF: [facility] Xarelto Tablet 10 MG Give 1 tablet by mouth one time a day related to UNSPECIFIED FRACTURE OF LEFT FEMUR, SEQUELA (S72.92XS) Oral Active 03/13/2018 SN[facility]: [facility] Lidocaine Patch 5 % Apply to hip topically one time a day for pain and remove per schedule External Active 03/12/2018 SN[facility]: [facility] Enoxaparin Sodium Solution 40 MG/0.4ML Inject 0.4 ml subcutaneously one time a day for Prophylactic for 2 Days Subcutaneous Active 03/12/2018 SNF: [facility] Levaquin Tablet 500 MG Give 1 tablet by mouth one time a day for Prophylactic for 7 Days Oral Active 03/12/2018 SNF: [facility] Metoprolol Tartrate Tablet Give 12.5 mg by mouth two times a day for HTN Hold for SBP less than 110, HR less than 60 Oral Active 03/11/2018 SNF: [facility] Cyclobenzaprine HCl Tablet 5 MG Give 1 tablet by mouth every 8 hours as needed for Spasm Oral Active 03/11/2018 SNF: [facility] [place] Tablet 7.5-325 MG Give 1 tablet by mouth every 6 hours as needed for pain Oral Active 03/11/2018 SN[facility]: [facility] Levofloxacin 500 MG Oral Tablet [Levaquin] 500 mg=1 tab, PO, Q24H, X 7 day, # 7 tab, 0 Refill(s) Active 03/11/2018 [facility] cyclobenzaprine 10 mg oral tablet 5 mg=0.5 tab, PO, TID, PRN Spasm, 0 Refill(s) Active 03/11/2018 [facility] metoprolol tartrate 25 mg oral tablet 12.5 mg=0.5 tab, PO, Q12H, 0 Refill(s) Active 03/11/2018 [facility] Potassium Chloride 40 mEq, 2 tab, Route: PO, Drug form: ERTAB, ONCE, Dosing Weight 60.909, kg, Start date: 03/11/18 12:27:00 CDT, Stop date: 03/11/18 12:27:00 CDTNotes: (Same as: K-Dur 20) "Do Not Crush" For pat ients unable to swallow tablet, dissolve in one half glass of water. Allow about 2 minutes for the tablets to disintegrate. Stir before giving to prepare slurry and administer. Please exclude Patient’s with feeding tube less than 14 [place] (Dobhoff, J-tube etc) and pediatric and patients. With food and full glass of water Inactive 03/11/2018 [facility] metoprolol tartrate 12.5 mg, 0.5 tab, Route: PO, Drug form: TAB, Q12H, Dosing Weight 60.909, kg, Start date: 03/11/18 9:00:00 CDT, Duration: 30 day, Stop date: 04/09/18 21:00:00 CDTNotes: (Same as: Lopressor) Inactive 03/11/2018 [facility] Melatonin 3 mg, 1 tab, Route: PO, Drug form: TAB, Bedtime, Dosing Weight 60.909, kg, PRN Sleep, Start date: 03/10/18 14:42:00 CDT, Duration: 30 day, Stop date: 04/09/18 14:41:00 CDTNotes: (Same as: Melatonin) No Longer Active 03/10/2018 [facility] Tylenol 650 mg, 2 tab, Route: PO, Drug form: TAB, Q6H, Dosing Weight 60.909, kg, PRN Pain Score 4-6, Start date: 03/10/18 14:42:00 CDT, Duration: 30 day, Stop date: 04/09/18 14:41:00 CDTNotes: Do not exceed 4 gm/day. (Same as: Tylenol) No Longer Active 03/10/2018 [facility] Zosyn 3.375 gm, Route: IVPB, [id number], Dosing Weight 60.909, kg, CrCl >=20 ml/min infuse over 4 hours, Start date: 03/09/18 20:00:00 CDT, Duration: 10 day, Stop date: 03/19/18 12:00:00 CDT, ABX Indication: Other (specify in Comments)Notes: (Same as: Zosyn) Dosing based on Piperacillin component MEDICATION WASTE Product Size: 3375 mg Product Wasted: ___ mg No Longer Active 03/10/2018 [facility] Lidocaine 0.05 MG/MG Transdermal Patch 1 patch, TOP, Daily, 0 Refill(s) Active 03/09/2018 [facility] Enoxaparin 40 mg=0.4 mL, SUB-Q, [id number], 0 Refill(s) Active 03/09/2018 [facility] metoprolol extended release 12.5 mg, 0.5 tab, Route: PO, Drug form: ERTAB, Q12H, Start date: 03/08/18 21:00:00 CDT, Duration: 30 day, Stop date: 04/07/18 9:00:00 CDTNotes: (Same as: Toprol XL) Do Not Crush No Longer Active 03/09/2018 [facility] metoprolol 25 mg oral tablet, extended release 25 mg=1 tab, PO, Daily, # 30 tab, 0 Refill(s) No Longer Active 03/08/2018 [facility] Acetaminophen 325 MG / Hydrocodone Bitartrate 7.5 MG Oral Tablet [[place] 7.5/325] 1 tab, Route: PO, Drug Form: TAB, Dosing Weight 60.909, kg, Q6H, PRN Pain Score 4-6, Start date: 03/08/18 12:53:00 CDT, Duration: 30 day, Stop date: 04/07/18 12:52:00 CDTNotes: Same as [place] 325-7.5mg Do not exceed 4gm/day of acetaminophen. No Longer Active 03/08/2018 [facility] Acetaminophen 325 MG / Hydrocodone Bitartrate 5 MG Oral Tablet [[place] 5/325] 1 tab, Route: PO, Drug Form: TAB, Dosing Weight 60.909, kg, Q6H, PRN Pain Score 1-3, Start date: 03/07/18 17:26:00 CDT, Duration: 30 day, Stop date: 04/06/18 17:25:00 CDTNotes: (Same as: [place] 325/5) Do not exceed 4gm/day of acetaminophen. No Longer Active 03/07/2018 [facility] Morphine 6 mg, 3 mL, Route: PO, Drug form: SOLN, Q4H, Dosing Weight 60.909, kg, PRN Pain Score 7-10, Start date: 03/07/18 17:26:00 CDT, Stop date: 04/06/18 17:25:00 CDTNotes: (Same as:MORPhine Sulfate) No Longer Active 03/07/2018 [facility] normal saline 0.9% IV 250 mL 250 mL, Rate: 30 ml/hr, Infuse over: 8.3 hr, Route: IV, Dosing Weight 60.909 kg, Total Volume: 250, Start date: 03/07/18 6:23:00 CDT, Duration: 1 day, Stop date: 03/08/18 6:22:00 CDT, 1.65, m2 No Longer Active 03/07/2018 [facility] remove patch Route: TOP, Bedtime, Drug form: ERFILM, Start date: 03/06/18 21:00:00 CDT, Duration: 30 day, Stop date: 04/04/18 21:00:00 CDTNotes: Remove patch 12 hours after application each day. No Longer Active 03/07/2018 [facility] Tylenol 1,000 mg, 2 tab, Route: PO, Drug form: TAB, TID, Dosing Weight 60.909, kg, Start date: 03/06/18 12:00:00 CDT, Duration: 30 day, Stop date: 04/05/18 6:00:00 CDTNotes: Max acetaminophen 4000 mg/day (4 gm/day). (Same as: Tylenol Extra Strength) No Longer Active 03/06/2018 [facility] pantoprazole 40 mg, 1 tab, Route: PO, Drug form: ECTAB, Daily, Dosing Weight 60.909, kg, Start date: 03/06/18 9:00:00 CDT, Duration: 30 day, Stop date: 04/04/18 9:00:00 CDTNotes: Tablet should not be chewed or cr ushed. (Same as: Protonix) No Longer Active 03/06/2018 [facility] Docusate Sodium 100 MG Oral Capsule 100 mg, 1 cap, Route: PO, Drug form: CAP, BID, Dosing Weight 60.909, kg, Start date: 03/06/18 9:00:00 CDT, Duration: 30 day, Stop date: 04/04/18 17:00:00 CDTNotes: (Same as: Colace) (Do Not Crush) No Longer Active 03/06/2018 [facility] Flexeril 5 mg, 0.5 tab, Route: PO, Drug form: TAB, TID, Dosing Weight 60.909, kg, PRN Spasm, Start date: 03/06/18 9:00:00 CDT, Duration: 30 day, Stop date: 04/05/18 8:59:00 CDTNotes: (Same As: Flexeril) No Longer Active 03/06/2018 [facility] Lidocaine 0.05 MG/MG Transdermal Patch 1 patch, Route: TOP, Daily, Drug form: FILM, Start date: 03/06/18 9:00:00 CDT, Duration: 30 day, Stop date: 04/04/18 9:00:00 CDTNotes: Apply only once for up to 12 hours in a 24-hour period (12 hours on and 12 hours off). (Same as: Lidoderm) "Remove old patch before application of new patch" No Longer Active 03/06/2018 [facility] Enoxaparin 40 mg, 0.4 mL, Route: SUB-Q, Drug form: INJ, [id number], Dosing Weight 60.909, kg, Start date: 03/06/18 9:00:00 CDT, Stop date: 04/03/18 9:00:00 CDTNotes: (Same as: Lovenox) No Longer Active 03/06/2018 [facility] Tylenol 1,000 mg, 2 tab, Route: PO, Drug form: TAB, Daily, Dosing Weight 60.909, kg, PRN Pain Score 4-6, Start date: 03/06/18 8:57:00 CDT, Duration: 30 day, Stop date: 04/05/18 8:56:00 CDTNotes: Max acetaminophen 4000 mg/day (4 gm/day). (Same as: Tylenol Extra Strength) No Longer Active 03/06/2018 [facility] Cefazolin 1 gm, Route: IVP, Q8H, Dosing Weight 60.909, kg, Start date: 03/06/18 1:00:00 CDT, Duration: 1 doses or times, Stop date: 03/06/18 1:00:00 CDT, ABX Indication: Surgical ProphylaxisNotes: (Same As: William Win) MEDICATION WASTE Product Size: 1000 mg Product Wasted: ___ mg Inactive 03/06/2018 [facility] Clindamycin 600 mg, 50 mL, Route: IVPB, Drug form: INJ, [id number], Dosing Weight 60.909, kg, Start date: 03/05/18 21:00:00 CDT, Duration: 1 doses or times, Stop date: 03/05/18 21:00:00 CDT, ABX Indication: Surgical Prophylaxis Inactive 03/06/2018 [facility] Labetalol 10 mg, Route: IVP, Q5Min, Dosing Weight 60.909, kg, PRN Elevated BP, Start date: 03/05/18 18:45:00 CDT, Duration: 5 doses or times, Stop date: Limited # of times Inactive 03/05/2018 [facility] Acetaminophen 1,000 mg, Route: PO, Drug form: TAB, ONCE, Dosing Weight 60.909, kg, PRN Pain Score 1-3, Start date: 03/05/18 18:45:00 CDT Inactive 03/05/2018 [facility] Hydralazine 10 mg, Route: IVP, Q20Min, Dosing Weight 60.909, kg, PRN Elevated BP, Start date: 03/05/18 18:45:00 CDT, Duration: 2 doses or times, Stop date: Limited # of times Inactive 03/05/2018 [facility] esmolol 10 mg, Route: IVP, Q5Min, Dosing Weight 60.909, kg, PRN Other -See Comment, Start date: 03/05/18 18:45:00 CDT, Duration: 5 doses or times, Stop date: Limited # of times Inactive 03/05/2018 [facility] Calcium Chloride 0.0014 MEQ/ML / Potassium Chloride 0.004 MEQ/ML / Sodium Chloride 0.103 MEQ/ML / Sodium Lactate 0.028 MEQ/ML Injectable Solution 1,000 mL, Rate: 125 ml/hr, Infuse over: 8 hr, Route: IV, Dosing Weight 60.909 kg, Total Volume: 1,000, Start date: 03/05/18 18:45:00 CDT, Duration: 30 day, Stop date: 04/04/18 18:44:00 CDT, 1.65, m2 Inactive 03/05/2018 [facility] Diphenhydramine 12.5 mg, Route: IVP, Drug form: INJ, Q6H, Dosing Weight 60.909, kg, PRN Itching, Start date: 03/05/18 18:45:00 CDT, Duration: 30 day, Stop date: 04/04/18 18:44:00 CDT Inactive 03/05/2018 [facility] Albuterol 0.83 MG/ML Inhalant Solution 2.49 mg, Route: NEB, Q20Min, Dosing Weight 60.909, kg, PRN Wheezing, Priority: STAT, Start date: 03/05/18 18:45:00 CDT, Duration: 30 day, Stop date: 04/04/18 18:44:00 CDT Inactive 03/05/2018 [facility] Flumazenil 0.2 mg, Route: IVP, PRN, Dosing Weight 60.909, kg, PRN Benzodiazepine Reversal, Initial dose, Start date: 03/05/18 18:45:00 CDT, Duration: 30 day, Stop date: 04/04/18 18:44:00 CDT Inactive 03/05/2018 [facility] Naloxone 0.4 mg, Route: IVP, Q2MIN, Dosing Weight 60.909, kg, PRN Narcotic Reversal, Start date: 03/05/18 18:45:00 CDT, Duration: 8 doses or times, Stop date: Limited # of times Inactive 03/05/2018 [facility] Hydromorphone 0.5 mg, Route: IVP, Q5Min, Dosing Weight 60.909, kg, PRN Pain Score 7-10, Start date: 03/05/18 18:45:00 CDT, Duration: 4 doses or times, Stop date: Limited # of times Inactive 03/05/2018 [facility] Fentanyl 50 microgram, Route: IVP, Q5Min, Dosing Weight 60.909, kg, PRN Pain Score 7-10, Priority: Routine, Start date: 03/05/18 18:45:00 CDT, Duration: 2 doses or times, Stop date: Limited # of times Inactive 03/05/2018 [facility] Morphine 4 mg, Route: IVP, Q5Min, Dosing Weight 60.909, kg, PRN Pain Score 7-10, Start date: 03/05/18 18:45:00 CDT, Duration: 3 doses or times, Stop date: Limited # of times Inactive 03/05/2018 [facility] Oxycodone 5 mg, Route: PO, Drug form: TAB, Q4H, Dosing Weight 60.909, kg, PRN Pain Score 4-6, Start date: 03/05/18 18:45:00 CDT, Duration: 30 day, Stop date: 04/04/18 18:44:00 CDT Inactive 03/05/2018 [facility] Meperidine 12.5 mg, Route: IVP, Q30Min, Dosing Weight 60.909, kg, PRN Other -See Comment, For shivering, Start date: 03/05/18 18:45:00 CDT, Duration: 2 doses or times, Stop date: Limited # of times Inactive 03/05/2018 [facility] Dexamethasone 4 mg, Route: IVP, ONCE, Dosing Weight 60.909, kg, PRN Nausea & Vomiting, Start date: 03/05/18 18:45:00 CDT Inactive 03/05/2018 [facility] Ondansetron 4 mg, Route: IVP, ONCE, Dosing Weight 60.909, kg, PRN Nausea & Vomiting, Start date: 03/05/18 18:45:00 CDT Inactive 03/05/2018 [facility] Dulcolax Laxative 5 mg, 1 tab, Route: PO, Drug form: ECTAB, Q24H, Dosing Weight 60.909, kg, PRN Constipation, Start date: 03/05/18 18:37:00 CDT, Duration: 30 day, Stop date: 04/04/18 18:36:00 CDTNotes: (Same As: Dulcolax , Correctol) (Do Not Crush) "Do Not Crush" No Longer Active 03/05/2018 [facility] Diphenhydramine 12.5 mg, 0.5 tab, Route: PO, Drug form: TAB, Q6H, Dosing Weight 60.909, kg, PRN Itching, Start date: 03/05/18 18:37:00 CDT, Duration: 30 day, Stop date: 04/04/18 18:36:00 CDT No Longer Active 03/05/2018 [facility] Al hydroxide/Mg hydroxide/simethicone 200 mg-200 mg-20 mg/5 mL oral suspension 30 ml, Route: PO, Drug Form: SUSP, Dosing Weight 60.909, kg, Q4H, PRN Indigestion, Start date: 03/05/18 18:37:00 CDT, Duration: 30 day, Stop date: 04/04/18 18:36:00 CDTNotes: (aluminum hydroxide-magnesium hyd- simethicone [id number]/5ml 30 ml ud GRISELDA) No Longer Active 03/05/2018 [facility] Lactated Ringers IV 1,000 mL 1,000 mL, Rate: 75 ml/hr, Infuse over: 13.3 hr, Route: IV, Dosing Weight 60.909 kg, Total Volume: 1,000, Start date: 03/05/18 18:37:00 CDT, Duration: 30 day, Stop date: 04/04/18 18:36:00 CDT, 1.65, m2 No Longer Active 03/05/2018 [facility] Acetaminophen 650 mg, 2 tab, Route: PO, Drug form: TAB, Q4H, Dosing Weight 60.909, kg, PRN Pain 1-3/Temp > 100.4 F, Start date: 03/05/18 18:37:00 CDT, Duration: 30 day, Stop date: 04/04/18 18:36:00 CDTNotes: Do not exceed 4 gm/day. (Same as: Tylenol) No Longer Active 03/05/2018 [facility] rocuronium (ANES) Route: IV, Drug form: INJ, ONCE, Stop date: 03/05/18 18:33:00 CDT Inactive 03/05/2018 [facility] fentaNYL (ANES) Route: IV, Drug form: INJ, ONCE, Stop date: 03/05/18 18:33:00 CDT Inactive 03/05/2018 [facility] ondansetron (ANES) Route: IV, Drug form: INJ, ONCE, Stop date: 03/05/18 18:33:00 CDT Inactive 03/05/2018 [facility] metoprolol (ANES) Route: IV, Drug form: INJ, ONCE, Stop date: 03/05/18 18:33:00 CDT Inactive 03/05/2018 [facility] dexamethasone (ANES) Route: IV, Drug form: INJ, ONCE, Stop date: 03/05/18 18:33:00 CDT Inactive 03/05/2018 [facility] glycopyrrolate (ANES) Route: IV, Drug form: INJ, ONCE, Stop date: 03/05/18 18:33:00 CDT Inactive 03/05/2018 [facility] neostigmine (ANES) Route: IV, Drug form: INJ, ONCE, Stop date: 03/05/18 18:33:00 CDT Inactive 03/05/2018 [facility] esmolol (ANES) Route: IV, Drug form: INJ, ONCE, Stop date: 03/05/18 18:33:00 CDT Inactive 03/05/2018 [facility] Amidate (ANES) Route: IV, Drug form: INJ, ONCE, Stop date: 03/05/18 18:33:00 CDT Inactive 03/05/2018 [facility] norepinephrine (ANES) Route: IV, Drug form: INJ, ONCE, Stop date: 03/05/18 18:03:00 CDT Inactive 03/05/2018 [facility] metoclopramide (ANES) Route: IV, Drug form: INJ, ONCE, Stop date: 03/05/18 18:03:00 CDT Inactive 03/05/2018 [facility] lidocaine (ANES) Route: IV, Drug form: INJ, ONCE, Stop date: 03/05/18 18:03:00 CDT Inactive 03/05/2018 [facility] fentaNYL (ANES) Route: IV, Drug form: INJ, ONCE, Stop date: 03/05/18 17:48:00 CDT Inactive 03/05/2018 [facility] cefOXitin (ANES) Route: IV, Drug form: INJ, ONCE, Stop date: 03/05/18 17:48:00 CDT Inactive 03/05/2018 [facility] propofol (ANES) Route: IV, Drug form: INJ, ONCE, Stop date: 03/05/18 17:48:00 CDT Inactive 03/05/2018 [facility] ceFAZolin (ANES) Route: IV, Drug form: INJ, ONCE, Stop date: 03/05/18 17:38:00 CDT Inactive 03/05/2018 [facility] midazolam (ANES) Route: IV, Drug form: SOLN, ONCE, Stop date: 03/05/18 17:33:00 CDT Inactive 03/05/2018 [facility] metoprolol tartrate 12.5 mg, 0.5 tab, Route: PO, Drug form: TAB, BID, Dosing Weight 60.909, kg, Start date: 03/05/18 17:00:00 CDT, Duration: 30 day, Stop date: 04/04/18 9:00:00 CDTNotes: (Same as: Lopressor) No Longer Active 03/05/2018 [facility] Lactated Ringers Injection IV (ANES) 1000 mL Route: IV, Total Volume: 1,000, Start date: 03/05/18 16:58:00 CDT, Stop date: 03/05/18 17:58:00 CDT Inactive 03/05/2018 [facility] Protonix 40 mg, 1 tab, Route: PO, Drug form: ECTAB, Before Dinner, Dosing Weight 60.909, kg, Start date: 03/05/18 16:30:00 CDT, Duration: 30 day, Stop date: 04/03/18 16:30:00 CDTNotes: Tablet should not be chewed or crushed. (Same as: Protonix) Inactive 03/05/2018 [facility] Hydralazine 10 mg, 0.5 mL, Route: IVP, Drug form: INJ, Q4H, Dosing Weight 60.909, kg, PRN Hypertension, Start date: 03/05/18 10:13:00 CDT, Duration: 30 day, Stop date: 04/04/18 10:12:00 CDTNotes: (Same as: [place] pena) Push over 5 minutes No Longer Active 03/05/2018 [facility] Melatonin 3 mg, 1 tab, Route: PO, Drug form: TAB, Bedtime, Dosing Weight 60.909, kg, PRN Sleep, Start date: 03/05/18 10:13:00 CDT, Duration: 30 day, Stop date: 04/04/18 10:12:00 CDTNotes: (Same as: Melatonin) No Longer Active 03/05/2018 [facility] Streptococcus pneumoniae serotype 1 capsular antigen diphtheria [id number] protein conjugate vaccine / Streptococcus pneumoniae serotype 14 capsular antigen diphtheria [id number] protein conjugate vaccine / Streptococcus pneumoniae serotype 18C capsular antigen d 0.5 mL, Route: IM, Drug Form: INJ, Daily, Start date: 03/05/18 9:00:00 CDT, Duration: 1 doses or times, Stop date: 03/05/18 9:00:00 CDTNotes: Shake well prior to use (Same as: Prevnar 13) Inactive 03/05/2018 [facility] NURSE please update PT's HEIGHT in [facility] when possible NURSE please update PT's HEIGHT in [facility] when possible, 1, Drug form: MISC, Route: MISC, Q30Min, 03/05/18 8:00:00 CDT, Duration: 4 doses or times, Stop date: 03/05/18 9:30:00 CDT Inactive 03/05/2018 [facility] Ancef + sterile water 20 mL 2 gm, Route: IV, ONCE, Dosing Weight 60.909, kg, Start date: 03/05/18 7:49:00 CDT, Stop date: 03/05/18 7:49:00 CDT, Surgical Prophylaxis Only; For patients Notes: (Same As: AncefAdanzol) MEDICATION WASTE Product Size: 1000 mg Product Wasted: ___ mg Inactive 03/05/2018 [facility] hydromorphone 0.3 mg, 0.3 mL, Route: IV, Drug form: INJ, Q4H, PRN Pain Score 7-10, Start date: 03/05/18 5:00:00 CDT, Duration: 30 day, Stop date: 04/04/18 4:59:00 CDTNotes: Same as: Dilaudid No Longer Active 03/05/2018 [facility] metoprolol tartrate 25 mg, PO, BID, metoprolol 2mg 1/2 tab twice daily per medication bottle, 0 Refill(s) No Longer Active 03/05/2018 [facility] Protonix 40 mg, PO, Daily, # 30 tab, 0 Refill(s) Active 03/05/2018 [facility] Fentanyl 50 microgram, Route: IVP, ONCE, Dosing Weight 66.364, kg, Priority: STAT, Start date: 03/04/18 23:59:00 CDT, Stop date: 03/04/18 23:59:00 CDT No Longer Active 03/05/2018 [facility] Saline Flush 0.9% 10 ml, Route: IVP, Drug Form: INJ, Dosing Weight 66.364, kg, PRN, PRN Line Flush, Start date: 03/04/18 23:58:00 CDT, Duration: 30 day, Stop date: 04/03/18 23:57:00 CDTNotes: (Same as: BD Posiflush) No Longer Active 03/05/2018 [facility] Sodium Chloride 0.9% IV 1,000 mL 1,000 mL, Rate: 75 ml/hr, Infuse over: 13.3 hr, Route: IV, Dosing Weight 66.364 kg, Total Volume: 1,000, Start date: 03/04/18 23:58:00 CDT, Duration: 30 day, Stop date: 04/03/18 23:57:00 CDT No Longer Active 03/05/2018 [facility] Acetaminophen 325 MG / Hydrocodone Bitartrate 5 MG Oral Tablet 2 tab, Route: PO, Drug Form: TAB, Dosing Weight 66.364, kg, Q4H, PRN Pain Score 7-10, Start date: 03/04/18 23:58:00 CDT, Duration: 30 day, Stop date: 04/03/18 23:57:00 CDTNotes: (Same as: [place] 325/5) Do not exceed 4gm/day of acetaminophen. No Longer Active 03/05/2018 [facility] Morphine 2 mg, Route: IVP, Q4H, Dosing Weight 66.364, kg, PRN Pain Score 7-10, Start date: 03/04/18 23:58:00 CDT, Duration: 30 day, Stop date: 04/03/18 23:57:00 CDT No Longer Active 03/05/2018 [facility] Dilaudid 0.5 mg, 0.5 mL, Route: IVP, Drug form: INJ, ONCE, Dosing Weight 66.364, kg, Priority: STAT, Start date: 03/04/18 23:37:00 CDT, Stop date: 03/04/18 23:37:00 CDTNotes: Same as: Dilaudid No Longer Active 03/05/2018 [facility] Fentanyl 50 microgram, Route: IVP, ONCE, Dosing Weight 66.364, kg, Priority: STAT, Start date: 03/04/18 21:49:00 CDT, Stop date: 03/04/18 21:49:00 CDT Inactive 03/05/2018 [facility] Allergies, Adverse Reactions, Alerts Substance Category Reaction Severity Reaction type Status Date Reported Comments Source CODINE Assertion Drug allergy Active 01/10/2003 [facility] [place] Tramadol 03/11/2018 [facility]: [facility] Codeine 03/12/2018 [facility]: [facility] Penicillin 03/12/2018 [facility]: [facility] PCN Assertion Drug allergy Active [facility] traMADol Assertion Drug allergy Active [facility] Immunizations Immunization Date Given Site Status Last Updated Comments Source pneumococcal 13-valent vaccine 03/05/2018 Left deltoid completed [facility] Results Order Name Results Value Reference Range Date Interpretation Comments Source Spine lumbar wo contrast CT Spine lumbar wo contrast CT CT LUMBAR SPINE WITHOUT CONTRAST WITH SAGITTAL AND CORONAL REFORMATTED IMAGES HISTORY: Low back pain; - t12 compression fracture; abnormal lumbar spine radiography; CT DLP 769.72 COMPARISON: Lumbar spine radiography dated 04/24/2018 and 08/29/2013 FINDINGS: Acute or subacute moderate superior endplate compression fracture of the T12 vertebral body associated with articular cortex discontinuity and 7 endplate trabecular sclerotic impaction. There is mild retropulsion of the posterior vertebral body cortex superiorly measuring 4 mm without high-grade canal stenosis. No epidural hemorrhage is evident. Multiple chronic vertebral body fractures are unchanged: Mild superior endplate compression fracture of T11, mild superior endplate compression fracture of L1, mild inferior endplate fracture of L2, mild superior endplate compression fracture of L3, and moderate superior endplate fracture of L4. Chronic nondisplaced fracture of the right L1 transverse process. No other fractures are seen. Multilevel mild/moderate disc degeneration. Mild degenerative facet arthrosis in the lower lumbar spine. There is no significant lumbar canal stenosis. Multilevel mild/moderate neural foraminal narrowing. No high-grade neural foraminal narrowing. No paraspinal hematoma, mass, or fluid collection. Moderate aortoiliac calcification, calcified granuloma in the liver, marked sigmoid diverticulosis. IMPRESSION: 1. Acute/subacute moderate superior endplate compression fracture of the T12 vertebral body. 2. Mild T12 posterior cortex retropulsion without resulting canal stenosis. 3. 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 4. Mild/moderate lumbar spondylosis without high-grade canal stenosis or neural foraminal narrowing. SL: [id number] 04/27/2018 - - Read by: Phong Alvarado MD Dictated Date/time: 04/27/18 12:54 Electronically Signed by: Phong Alvarado MD 04/27/18 13:03 FINAL REPORT [facility] CHEM PANEL A/G Ratio 1.0 0.7 - 1.6 04/26/2018 [facility] CHEM PANEL AGAP 8.9 meq/L 10.0 - 20.0 04/26/2018 [facility] CHEM PANEL Globulin 3.1 g/dL 2.7 - 4.2 04/26/2018 [facility] CHEM PANEL B/C Ratio 19 6 - 25 04/26/2018 [facility] CHEM PANEL eGFR 80 mL/min/1.73m2 04/26/2018 Result Comment: The eGFR is calculated using the CKD-EPI formula. In most young, healthy individuals the eGFR will be >90 mL/min/1.73m2. The eGFR declines with age. An eGFR of 60-89 may be normal in some populations, particularly the elderly, for whom the CKD-EPI formula has not been extensively validated. Use of the eGFR is not recommended in the following populations: Individuals with unstable creatinine concentrations, including patients and those with serious co-morbid conditions. Patients with extremes in muscle mass or diet. The data above are obtained from the National Kidney Disease Education Program (NKDEP) which additionally recommends that when the eGFR is used in patients with extremes of body mass index for purposes of drug dosing, the eGFR should be multiplied by the estimated BMI. [facility] CHEM PANEL Alk Phos 104 unit/L 39 - 136 04/26/2018 [facility] CHEM PANEL Bili Total 0.3 mg/dL 0.2 - 1.3 04/26/2018 [facility] CHEM PANEL AST 14 unit/L 0 - 37 04/26/2018 [facility] CHEM PANEL Sodium Lvl 140 meq/L 135 - 145 04/26/2018 [facility] CHEM PANEL BUN 13 mg/dL 7 - 22 04/26/2018 [facility] CHEM PANEL Creatinine Lvl 0.67 mg/dL 0.50 - 1.40 04/26/2018 [facility] CHEM PANEL Glucose Lvl 80 mg/dL 70 - 99 04/26/2018 [facility] CHEM PANEL Albumin Lvl 3.0 g/dL 3.5 - 5.0 04/26/2018 [facility] CHEM PANEL ALT 12 unit/L 0 - 65 04/26/2018 [facility] CHEM PANEL CO2 27 meq/L 24 - 32 04/26/2018 [facility] CHEM PANEL Calcium Lvl 8.7 mg/dL 8.5 - 10.5 04/26/2018 [facility] CHEM PANEL Potassium Lvl 3.9 meq/L 3.5 - 5.1 04/26/2018 [facility] CHEM PANEL Chloride Lvl 108 meq/L 95 - 109 04/26/2018 [facility] CHEM PANEL Total Protein 6.1 g/dL 6.4 - 8.4 04/26/2018 [facility] HEMATOLOGY MCV 91.1 fL 80.0 - 98.0 04/26/2018 [facility] HEMATOLOGY Hct 38.5 % 36.0 - 48.0 04/26/2018 [facility] HEMATOLOGY Hgb 12.9 g/dL 12.0 - 16.0 04/26/2018 [facility] HEMATOLOGY MCHC 33.5 g/dL 32.0 - 36.0 04/26/2018 [facility] HEMATOLOGY MCH 30.5 pg 27.0 - 31.0 04/26/2018 [facility] HEMATOLOGY MPV 8.4 fL 7.4 - 10.4 04/26/2018 [facility] HEMATOLOGY Platelet 184 K/CMM 133 - 450 04/26/2018 [facility] HEMATOLOGY RDW 16.2 % 11.5 - 14.5 04/26/2018 [facility] HEMATOLOGY RBC 4.23 M/CMM 4.20 - 5.40 04/26/2018 [facility] HEMATOLOGY WBC 5.2 K/CMM 3.7 - 10.4 04/26/2018 [facility] HEMATOLOGY Segs-Bands # 2.9 K/CMM 1.5 - 8.1 04/26/2018 [facility] HEMATOLOGY Eosinophils # 0.1 K/CMM 0.0 - 0.5 04/26/2018 [facility] HEMATOLOGY Monocytes # 0.6 K/CMM 0.0 - 0.8 04/26/2018 [facility] HEMATOLOGY Lymphocytes # 1.5 K/CMM 1.0 - 5.5 04/26/2018 [facility] HEMATOLOGY Segs 55.8 % 45.0 - 75.0 04/26/2018 [facility] HEMATOLOGY Basophils 0.6 % 0.0 - 1.0 04/26/2018 [facility] HEMATOLOGY Eosinophils 2.9 % 0.0 - 4.0 04/26/2018 [facility] Monocytes 11.5 % 2.0 - 12.0 04/26/2018 [facility] Lymphocytes 29.2 % 20.0 - 40.0 04/26/2018 [facility] CHEM PANEL eGFR 74 mL/min/1.73m2 04/25/2018 Result Comment: The eGFR is calculated using the CKD-EPI formula. In most young, healthy individuals the eGFR will be >90 mL/min/1.73m2. The eGFR declines with age. An eGFR of 60-89 may be normal in some populations, particularly the elderly, for whom the CKD-EPI formula has not been extensively validated. Use of the eGFR is not recommended in the following populations: Individuals with unstable creatinine concentrations, including patients and those with serious co-morbid conditions. Patients with extremes in muscle mass or diet. The data above are obtained from the National Kidney Disease Education Program (NKDEP) which additionally recommends that when the eGFR is used in patients with extremes of body mass index for purposes of drug dosing, the eGFR should be multiplied by the estimated BMI. [facility] CHEM PANEL Bili Total 0.5 mg/dL 0.2 - 1.3 04/25/2018 [facility] CHEM PANEL B/C Ratio 18 6 - 25 04/25/2018 [facility] CHEM PANEL Albumin Lvl 2.8 g/dL 3.5 - 5.0 04/25/2018 [facility] CHEM PANEL Total Protein 6.2 g/dL 6.4 - 8.4 04/25/2018 [facility] CHEM PANEL Globulin 3.4 g/dL 2.7 - 4.2 04/25/2018 [facility] CHEM PANEL ALT 13 unit/L 0 - 65 04/25/2018 [facility] CHEM PANEL A/G Ratio 0.8 0.7 - 1.6 04/25/2018 [facility] CHEM PANEL Chloride Lvl 110 meq/L 95 - 109 04/25/2018 [facility] CHEM PANEL CO2 24 meq/L 24 - 32 04/25/2018 [facility] CHEM PANEL AGAP 11.9 meq/L 10.0 - 20.0 04/25/2018 [facility] CHEM PANEL Calcium Lvl 8.7 mg/dL 8.5 - 10.5 04/25/2018 [facility] CHEM PANEL Alk Phos 104 unit/L 39 - 136 04/25/2018 [facility] CHEM PANEL AST 13 unit/L 0 - 37 04/25/2018 [facility] CHEM PANEL Potassium Lvl 3.9 meq/L 3.5 - 5.1 04/25/2018 [facility] CHEM PANEL Sodium Lvl 142 meq/L 135 - 145 04/25/2018 [facility] CHEM PANEL Glucose Lvl 83 mg/dL 70 - 99 04/25/2018 [facility] CHEM PANEL Creatinine Lvl 0.74 mg/dL 0.50 - 1.40 04/25/2018 [facility] CHEM PANEL BUN 13 mg/dL 7 - 22 04/25/2018 [facility] HEMATOLOGY Eosinophils 2.6 % 0.0 - 4.0 04/25/2018 [facility] HEMATOLOGY Monocytes 11.9 % 2.0 - 12.0 04/25/2018 [facility] HEMATOLOGY Lymphocytes 24.7 % 20.0 - 40.0 04/25/2018 [facility] Monocytes # 0.6 K/CMM 0.0 - 0.8 04/25/2018 [facility] HEMATOLOGY Eosinophils # 0.1 K/CMM 0.0 - 0.5 04/25/2018 [facility] HEMATOLOGY Segs-Bands # 3.2 K/CMM 1.5 - 8.1 04/25/2018 [facility] HEMATOLOGY Basophils 0.9 % 0.0 - 1.0 04/25/2018 [facility] HEMATOLOGY Lymphocytes # 1.3 K/CMM 1.0 - 5.5 04/25/2018 [facility] HEMATOLOGY Segs 59.9 % 45.0 - 75.0 04/25/2018 [facility] HEMATOLOGY RDW 16.8 % 11.5 - 14.5 04/25/2018 [facility] HEMATOLOGY Platelet 187 K/CMM 133 - 450 04/25/2018 [facility] HEMATOLOGY MCH 30.8 pg 27.0 - 31.0 04/25/2018 [facility] MCHC 33.5 g/dL 32.0 - 36.0 04/25/2018 [facility] MPV 8.5 fL 7.4 - 10.4 04/25/2018 [facility] WBC 5.3 K/CMM 3.7 - 10.4 04/25/2018 [facility] Hct 39.0 % 36.0 - 48.0 04/25/2018 [facility] MCV 91.8 fL 80.0 - 98.0 04/25/2018 [facility] RBC 4.25 M/CMM 4.20 - 5.40 04/25/2018 [facility] Hgb 13.1 g/dL 12.0 - 16.0 04/25/2018 [facility] Spine Lumbar Comp w Bend views DX Spine Lumbar Comp w Bend views DX Lumbar spine 7 views 04/24/2018 HISTORY: Back pain Comparison is made to 08/29/2013 FINDINGS: There is a new 50% compression fracture at T12. There is an unchanged 20% compression fracture at T11. There is a stable 20% compression fracture at L1. Stable inferior endplate deformity at L2 is noted. There is a superior plate defect at L3. 25% height loss at L4 is noted. There is an unchanged 30% vertebral body compression fracture at L5. Pedicles and spinous processes are within normal limits. Oblique images show no spondylolysis bilaterally. On flexion and extension views, no anterolisthesis or retrolisthesis is noted. No abnormal motion is present. IMPRESSION: 1. New 50% vertebral body compression fracture at T12. 2. Old vertebral body compression fractures at T11 L1, L3, L4, and L5. SL: EDGAR 04/24/2018 - - Read by: Efrain Barbour MD Dictated Date/time: 04/25/18 15:36 Electronically Signed by: Efrain Barbour MD 04/25/18 15:40 FINAL REPORT [facility] CHEM PANEL eGFR 77 mL/min/1.73m2 04/24/2018 Result Comment: The eGFR is calculated using the CKD-EPI formula. In most young, healthy individuals the eGFR will be >90 mL/min/1.73m2. The eGFR declines with age. An eGFR of 60-89 may be normal in some populations, particularly the elderly, for whom the CKD-EPI formula has not been extensively validated. Use of the eGFR is not recommended in the following populations: Individuals with unstable creatinine concentrations, including patients and those with serious co-morbid conditions. Patients with extremes in muscle mass or diet. The data above are obtained from the National Kidney Disease Education Program (NKDEP) which additionally recommends that when the eGFR is used in patients with extremes of body mass index for purposes of drug dosing, the eGFR should be multiplied by the estimated BMI. [facility] CHEM PANEL Calcium Lvl 8.9 mg/dL 8.5 - 10.5 04/24/2018 [facility] CHEM PANEL Chloride Lvl 110 meq/L 95 - 109 04/24/2018 [facility] CHEM PANEL Alk Phos 101 unit/L 39 - 136 04/24/2018 [facility] CHEM PANEL AST 9 unit/L 0 - 37 04/24/2018 [facility] CHEM PANEL CO2 27 meq/L 24 - 32 04/24/2018 [facility] CHEM PANEL Albumin Lvl 3.1 g/dL 3.5 - 5.0 04/24/2018 [facility] CHEM PANEL Total Protein 6.1 g/dL 6.4 - 8.4 04/24/2018 [facility] CHEM PANEL ALT 7 unit/L 0 - 65 04/24/2018 [facility] CHEM PANEL Bili Total 0.3 mg/dL 0.2 - 1.3 04/24/2018 [facility] CHEM PANEL Potassium Lvl 4.8 meq/L 3.5 - 5.1 04/24/2018 [facility] CHEM PANEL Glucose Lvl 77 mg/dL 70 - 99 04/24/2018 [facility] CHEM PANEL BUN 13 mg/dL 7 - 22 04/24/2018 [facility] CHEM PANEL Sodium Lvl 145 meq/L 135 - 145 04/24/2018 [facility] CHEM PANEL Creatinine Lvl 0.72 mg/dL 0.50 - 1.40 04/24/2018 [facility] CHEM PANEL A/G Ratio 1.0 0.7 - 1.6 04/24/2018 [facility] CHEM PANEL AGAP 12.8 meq/L 10.0 - 20.0 04/24/2018 [facility] CHEM PANEL Globulin 3.0 g/dL 2.7 - 4.2 04/24/2018 [facility] CHEM PANEL B/C Ratio 18 6 - 25 04/24/2018 [facility] CHEM PANEL Procalcitonin Lvl <0.05 ng/mL 0.00 - 0.10 04/24/2018 [facility] HEMATOLOGY Hct 38.8 % 36.0 - 48.0 04/24/2018 [facility] MCHC 32.2 g/dL 32.0 - 36.0 04/24/2018 [facility] MCH 29.7 pg 27.0 - 31.0 04/24/2018 [facility] MCV 92.2 fL 80.0 - 98.0 04/24/2018 [facility] Hgb 12.5 g/dL 12.0 - 16.0 04/24/2018 [facility] Platelet 211 K/CMM 133 - 450 04/24/2018 [facility] MPV 8.8 fL 7.4 - 10.4 04/24/2018 [facility] RDW 16.8 % 11.5 - 14.5 04/24/2018 [facility] WBC 5.5 K/CMM 3.7 - 10.4 04/24/2018 [facility] RBC 4.21 M/CMM 4.20 - 5.40 04/24/2018 [facility] Eosinophils 3.2 % 0.0 - 4.0 04/24/2018 [facility] Monocytes 11.3 % 2.0 - 12.0 04/24/2018 [facility] Lymphocytes 27.7 % 20.0 - 40.0 04/24/2018 [facility] Basophils 0.6 % 0.0 - 1.0 04/24/2018 [facility] Segs-Bands # 3.2 K/CMM 1.5 - 8.1 04/24/2018 [facility] Eosinophils # 0.2 K/CMM 0.0 - 0.5 04/24/2018 [facility] Monocytes # 0.6 K/CMM 0.0 - 0.8 04/24/2018 [facility] Lymphocytes # 1.5 K/CMM 1.0 - 5.5 04/24/2018 [facility] Segs 57.2 % 45.0 - 75.0 04/24/2018 [facility] CHEM PANEL Lactic Acid Lvl 1.0 mMol/L 0.5 - 2.2 04/23/2018 [facility] Retroperitoneal Complete US Retroperitoneal Complete US Patient Name: NICK CURRIE. : 1930; Age: 87 years y/o; Female. MR: [id number]. Ordering Physician: Shaun Wilkerson MD. PROCEDURE: RENAL ULTRASOUND INDICATION: Right-sided costovertebral angle tenderness, fever, bladder infection, recent right hip surgery. COMPARISON: None. TECHNIQUE: Sonographic evaluation of the kidneys and urinary bladder was performed. FINDINGS: KIDNEYS: The right kidney measures 11.2 x 4.4 x 4.6 cm. Normal contour and parenchymal echogenicity. There is no hydronephrosis, nephrolithiasis, mass lesion or perinephric collection. The left kidney measures 8.8 x 4.7 x 3.9 cm. Small exophytic cyst noted arising from junction of superior pole to midportion measuring 8.1 mm in greatest dimension. Normal contour and parenchymal echogenicity. There is no hydronephrosis, nephrolithiasis, mass lesion or perinephric collection. BLADDER: Normal. Partially imaged inferior vena cava abdominal aorta are unremarkable. IMPRESSION: 1. Small 8.1 mm exophytic left renal cyst. 2. Otherwise, kidneys are unremarkable. SL: JULIÁN 04/23/2018 - - Read by: Abilio Mckinney MD Dictated Date/time: 04/23/18 16:44 Electronically Signed by: Abilio Mckinney MD 04/23/18 16:47 FINAL REPORT [facility] URINE AND STOOL UA Urobilinogen <=1.0 mg/dL 0.1 - 1.0 04/23/2018 [facility] URINE AND STOOL UA Leuk Est Large *ABN* (04/22/18 8:07 PM) Negative 04/23/2018 [facility] URINE AND STOOL UA Sq Epi Occasional /LPF Few /LPF 04/23/2018 [facility] URINE AND STOOL UA WBC 44 /HPF 0 - 5 04/23/2018 [facility] URINE AND STOOL UA RBC 6 /HPF 0 - 2 04/23/2018 [facility] URINE AND STOOL UA Bacteria Occasional /HPF None Seen /HPF 04/23/2018 [facility] URINE AND STOOL UA Mucus Few /LPF None Seen /LPF 04/23/2018 [facility] URINE AND STOOL UA Blood Moderate *ABN* (04/22/18 8:07 PM) Negative 04/23/2018 [facility] URINE AND STOOL UA Glucose Negative mg/dL Negative mg/dL 04/23/2018 [facility] URINE AND STOOL UA Ketones Negative mg/dL Negative mg/dL 04/23/2018 [facility] URINE AND STOOL UA Bili Negative *NA* (04/22/18 8:07 PM) Negative 04/23/2018 [facility] URINE AND STOOL UA Nitrite Positive *ABN* (04/22/18 8:07 PM) Negative 04/23/2018 [facility] URINE AND STOOL UA pH 5.0 5.0 - 8.0 04/23/2018 [facility] URINE AND STOOL UA Spec Grav 1.016 <=1.030 04/23/2018 [facility] URINE AND STOOL UA Turbidity Clear (04/22/18 8:07 PM) Clear 04/23/2018 [facility] URINE AND STOOL UA Color Yellow *NA* (04/22/18 8:07 PM) Yellow 04/23/2018 [facility] URINE AND STOOL UA Protein Negative mg/dL Negative mg/dL 04/23/2018 [facility] CARDIAC ENZYMES Troponin-I null 0.00 - 0.40 04/23/2018 [facility] URINE AND STOOL UA Urobilinogen <=1.0 mg/dL 0.1 - 1.0 04/13/2018 [facility] URINE AND STOOL UA Mucus Few /LPF None Seen /LPF 04/13/2018 [facility] URINE AND STOOL UA WBC 4 /HPF 0 - 5 04/13/2018 [facility] URINE AND STOOL UA Sq Epi Occasional /LPF Few /LPF 04/13/2018 [facility] URINE AND STOOL UA RBC 6 /HPF 0 - 2 04/13/2018 [facility] URINE AND STOOL UA Bacteria Occasional /HPF None Seen /HPF 04/13/2018 [facility] URINE AND STOOL UA pH 6.0 5.0 - 8.0 04/13/2018 [facility] URINE AND STOOL UA Spec Grav 1.014 <=1.030 04/13/2018 [facility] URINE AND STOOL UA Blood Moderate *ABN* (04/13/18 2:03 PM) Negative 04/13/2018 [facility] URINE AND STOOL UA Nitrite Negative (04/13/18 2:03 PM) Negative 04/13/2018 [facility] URINE AND STOOL UA Leuk Est Small *ABN* (04/13/18 2:03 PM) Negative 04/13/2018 [facility] URINE AND STOOL UA Color Yellow *NA* (04/13/18 2:03 PM) Yellow 04/13/2018 [facility] URINE AND STOOL UA Turbidity Clear (04/13/18 2:03 PM) Clear 04/13/2018 [facility] URINE AND STOOL UA Glucose Negative mg/dL Negative mg/dL 04/13/2018 [facility] URINE AND STOOL UA Protein Negative mg/dL Negative mg/dL 04/13/2018 [facility] URINE AND STOOL UA Bili Negative *NA* (04/13/18 2:03 PM) Negative 04/13/2018 [facility] URINE AND STOOL UA Ketones Negative mg/dL Negative mg/dL 04/13/2018 [facility] Pelvis AP DX Pelvis AP DX Clinical Indication: - Acute right side pelvis pain; Comparison: 03/06/2018 FINDINGS: The AP pelvis radiograph shows a left intramedullary lawrence within the tibia and a transfemoral neck screw. Fracture fragments remain along the medial trochanter. There is near-anatomic alignment The pelvic and obturator rings are intact. The pubic rami are intact. The symphysis pubis and sacroiliac joints are unremarkable. The visualized sacral foramina are unremarkable. The hip joint spaces, proximal femoral regions and acetabular regions are unremarkable. There is demineralization of the bony structures. If there is further concern, recommend follow-up radiographs or bone scan for complete assessment. IMPRESSION: 1. Status post open reduction with internal fixation of the left hip. No acute abnormalities are identified. SL: [id number] 04/13/2018 - - Read by: Sree Gardner MD Dictated Date/time: 04/13/18 13:16 Electronically Signed by: Sree Gardner MD 04/13/18 13:17 FINAL REPORT [facility] ELECTROLYTES AGAP 10.6 meq/L 10.0 - 20.0 03/11/2018 [facility] ELECTROLYTES eGFR 85 mL/min/1.73m2 03/11/2018 Result Comment: The eGFR is calculated using the CKD-EPI formula. In most young, healthy individuals the eGFR will be >90 mL/min/1.73m2. The eGFR declines with age. An eGFR of 60-89 may be normal in some populations, particularly the elderly, for whom the CKD-EPI formula has not been extensively validated. Use of the eGFR is not recommended in the following populations: Individuals with unstable creatinine concentrations, including patients and those with serious co-morbid conditions. Patients with extremes in muscle mass or diet. The data above are obtained from the National Kidney Disease Education Program (NKDEP) which additionally recommends that when the eGFR is used in patients with extremes of body mass index for purposes of drug dosing, the eGFR should be multiplied by the estimated BMI. [facility] ELECTROLYTES BUN 14 mg/dL 7 - 22 03/11/2018 [facility] ELECTROLYTES CO2 26 meq/L 24 - 32 03/11/2018 [facility] ELECTROLYTES Calcium Lvl 7.9 mg/dL 8.5 - 10.5 03/11/2018 [facility] ELECTROLYTES Potassium Lvl 3.6 meq/L 3.5 - 5.1 03/11/2018 [facility] ELECTROLYTES Sodium Lvl 144 meq/L 135 - 145 03/11/2018 [facility] ELECTROLYTES Chloride Lvl 111 meq/L 95 - 109 03/11/2018 [facility] ELECTROLYTES Creatinine Lvl 0.56 mg/dL 0.50 - 1.40 03/11/2018 [facility] ELECTROLYTES Glucose Lvl 83 mg/dL 70 - 99 03/11/2018 [facility] HEMATOLOGY MPV 7.8 fL 7.4 - 10.4 03/11/2018 [facility] WBC 5.9 K/CMM 3.7 - 10.4 03/11/2018 [facility] Platelet 214 K/CMM 133 - 450 03/11/2018 [facility] RDW 16.1 % 11.5 - 14.5 03/11/2018 [facility] MCHC 33.0 g/dL 32.0 - 36.0 03/11/2018 [facility] Hct 26.7 % 36.0 - 48.0 03/11/2018 [facility] RBC 3.07 M/CMM 4.20 - 5.40 03/11/2018 [facility] MCV 86.9 fL 80.0 - 98.0 03/11/2018 [facility] Hgb 8.8 g/dL 12.0 - 16.0 03/11/2018 [facility] MCH 28.7 pg 27.0 - 31.0 03/11/2018 [facility] CHEM PANEL eGFR 86 mL/min/1.73m2 03/10/2018 Result Comment: The eGFR is calculated using the CKD-EPI formula. In most young, healthy individuals the eGFR will be >90 mL/min/1.73m2. The eGFR declines with age. An eGFR of 60-89 may be normal in some populations, particularly the elderly, for whom the CKD-EPI formula has not been extensively validated. Use of the eGFR is not recommended in the following populations: Individuals with unstable creatinine concentrations, including patients and those with serious co-morbid conditions. Patients with extremes in muscle mass or diet. The data above are obtained from the National Kidney Disease Education Program (NKDEP) which additionally recommends that when the eGFR is used in patients with extremes of body mass index for purposes of drug dosing, the eGFR should be multiplied by the estimated BMI. [facility] CHEM PANEL Chloride Lvl 109 meq/L 95 - 109 03/10/2018 [facility] CHEM PANEL CO2 28 meq/L 24 - 32 03/10/2018 [facility] CHEM PANEL Calcium Lvl 7.9 mg/dL 8.5 - 10.5 03/10/2018 [facility] CHEM PANEL Sodium Lvl 143 meq/L 135 - 145 03/10/2018 [facility] CHEM PANEL Creatinine Lvl 0.55 mg/dL 0.50 - 1.40 03/10/2018 [facility] CHEM PANEL Potassium Lvl 3.3 meq/L 3.5 - 5.1 03/10/2018 [facility] CHEM PANEL BUN 13 mg/dL 7 - 22 03/10/2018 [facility] CHEM PANEL Glucose Lvl 88 mg/dL 70 - 99 03/10/2018 [facility] CHEM PANEL AGAP 9.3 meq/L 10.0 - 20.0 03/10/2018 [facility] RBC 3.02 M/CMM 4.20 - 5.40 03/10/2018 [facility] Hgb 8.8 g/dL 12.0 - 16.0 03/10/2018 [facility] WBC 9.2 K/CMM 3.7 - 10.4 03/10/2018 [facility] MPV 7.9 fL 7.4 - 10.4 03/10/2018 [facility] RDW 16.2 % 11.5 - 14.5 03/10/2018 [facility] Platelet 187 K/CMM 133 - 450 03/10/2018 [facility] Hct 26.0 % 36.0 - 48.0 03/10/2018 [facility] MCHC 33.7 g/dL 32.0 - 36.0 03/10/2018 [facility] MCH 29.1 pg 27.0 - 31.0 03/10/2018 [facility] MCV 86.3 fL 80.0 - 98.0 03/10/2018 [facility] Chest 1view DX Chest 1view DX PROCEDURE: Chest, AP on 03/09/2018 at 1947 hours. INDICATION: Shortness of breath. COMPARISON: Chest radiographs dated 03/04/2018 and 08/04/2017. FINDINGS: No pleural effusion or pneumothorax. Linear density has developed in the right lower chest suggesting atelectasis. Lungs are otherwise clear without acute infiltrates. No venous congestion or consolidation. Mediastinum is unremarkable. IMPRESSION: Linear atelectasis within the right lower chest. SL: [id number] 03/09/2018 - - Read by: Bret Landrum MD Dictated Date/time: 03/10/18 06:52 Electronically Signed by: Bret Landrum MD 03/10/18 06:53 FINAL REPORT [facility] ELECTROLYTES AGAP 11.7 meq/L 10.0 - 20.0 03/09/2018 [facility] ELECTROLYTES eGFR 84 mL/min/1.73m2 03/09/2018 Result Comment: The eGFR is calculated using the CKD-EPI formula. In most young, healthy individuals the eGFR will be >90 mL/min/1.73m2. The eGFR declines with age. An eGFR of 60-89 may be normal in some populations, particularly the elderly, for whom the CKD-EPI formula has not been extensively validated. Use of the eGFR is not recommended in the following populations: Individuals with unstable creatinine concentrations, including patients and those with serious co-morbid conditions. Patients with extremes in muscle mass or diet. The data above are obtained from the National Kidney Disease Education Program (NKDEP) which additionally recommends that when the eGFR is used in patients with extremes of body mass index for purposes of drug dosing, the eGFR should be multiplied by the estimated BMI. [facility] ELECTROLYTES CO2 27 meq/L 24 - 32 03/09/2018 [facility] ELECTROLYTES Calcium Lvl 8.1 mg/dL 8.5 - 10.5 03/09/2018 [facility] ELECTROLYTES Glucose Lvl 96 mg/dL 70 - 99 03/09/2018 [facility] ELECTROLYTES Chloride Lvl 107 meq/L 95 - 109 03/09/2018 [facility] ELECTROLYTES Potassium Lvl 3.7 meq/L 3.5 - 5.1 03/09/2018 [facility] ELECTROLYTES BUN 9 mg/dL 7 - 22 03/09/2018 [facility] ELECTROLYTES Sodium Lvl 142 meq/L 135 - 145 03/09/2018 [facility] ELECTROLYTES Creatinine Lvl 0.59 mg/dL 0.50 - 1.40 03/09/2018 [facility] HEMATOLOGY MPV 8.5 fL 7.4 - 10.4 03/09/2018 [facility] HEMATOLOGY Platelet 150 K/CMM 133 - 450 03/09/2018 [facility] HEMATOLOGY Hgb 9.2 g/dL 12.0 - 16.0 03/09/2018 [facility] Hct 27.1 % 36.0 - 48.0 03/09/2018 [facility] MCV 86.6 fL 80.0 - 98.0 03/09/2018 [facility] MCH 29.5 pg 27.0 - 31.0 03/09/2018 [facility] MCHC 34.0 g/dL 32.0 - 36.0 03/09/2018 [facility] RDW 16.3 % 11.5 - 14.5 03/09/2018 [facility] WBC 7.9 K/CMM 3.7 - 10.4 03/09/2018 [facility] RBC 3.12 M/CMM 4.20 - 5.40 03/09/2018 [facility] BLOOD BANK RESULTS RBC product Product available 1 (03/07/18 6:22 AM) 03/07/2018 Result Comment: 03/07/2018 07:20 GE called to [facility] 03/07/2018 07:20 [facility] Monocytes # 1.5 K/CMM 0.0 - 0.8 03/06/2018 [facility] Monocytes 12.1 % 2.0 - 12.0 03/06/2018 [facility] Lymphocytes # 1.1 K/CMM 1.0 - 5.5 03/06/2018 [facility] Segs-Bands # 10.0 K/CMM 1.5 - 8.1 03/06/2018 [facility] Basophils 0.3 % 0.0 - 1.0 03/06/2018 [facility] Lymphocytes 8.8 % 20.0 - 40.0 03/06/2018 [facility] Segs 78.8 % 45.0 - 75.0 03/06/2018 [facility] Hip 2/3 views uni w pelvis DX Hip 2/3 views uni w pelvis DX Study: Pelvis and left hip, 2 views, left femur, 2 views Clinical Indication: Post ORIF left femoral fracture Comparison: Left hip 03/04/2018 and 03/05/2018 FINDINGS: Pelvis and left hip: Nail and intramedullary lawrence stabilize the comminuted intertrochanteric fracture. The lesser trochanter remains a separate fragment. Osteopenia is noted. Lateral skin chelsea are evident. Left femur: Intramedullary lawrence is centered within the medullary canal and is anchored with a single distal screw. Intertrochanteric fracture is again evident. There is generalized osteopenia. SL: [id number] 03/06/2018 - - Read by: Jose Sullivan MD Dictated Date/time: 03/06/18 10:01 Electronically Signed by: Jose Sullivan MD 03/06/18 10:04 FINAL REPORT [facility] Femur series DX Femur series DX Study: Pelvis and left hip, 2 views, left femur, 2 views Clinical Indication: Post ORIF left femoral fracture Comparison: Left hip 03/04/2018 and 03/05/2018 FINDINGS: Pelvis and left hip: Nail and intramedullary lawrence stabilize the comminuted intertrochanteric fracture. The lesser trochanter remains a separate fragment. Osteopenia is noted. Lateral skin chelsea are evident. Left femur: Intramedullary lawrence is centered within the medullary canal and is anchored with a single distal screw. Intertrochanteric fracture is again evident. There is generalized osteopenia. SL: [id number] 03/06/2018 - - Read by: Jose Sullivan MD Dictated Date/time: 03/06/18 10:01 Electronically Signed by: Jose Sullivan MD 03/06/18 10:04 FINAL REPORT [facility] Hip 2/3 views uni w pelvis DX Hip 2/3 views uni w pelvis DX Patient Name: NICK CURRIE : 1930; Age: 87 years y/o Female MR: [id number] * LEFT HIP, intraoperative, History: Comminuted intra-articular fracture of the occipital and femur. Intraoperative radiographs obtained during open reduction and internal fixation. Technique: 5 intraoperative digital C-arm images of the left hip and femur were obtained utilizing during over reduction internal fixation. The images also limited images of the distal femur for evaluation of the left femoral lawrence. It is indicated the fluoroscopy time was 123.3 seconds. Radiation dose: 14.55 mGy. FINDINGS: There is been open reduction and internal fixation of the comminuted intertrochanteric fracture with a sliding dynamic hip nail and long intramedullary lawrence extends into the distal femoral diaphysis. There is a single transverse locking screw. The hardware and main fracture fragments are in good position. There is slight medial displacement of the proximal fragment in relation to the distal fragment with mild impaction. There are mildly comminuted lesser trochanteric fragments. SL: [id number] 03/05/2018 - - Read by: Casey Norton MD Dictated Date/time: 03/05/18 20:16 Electronically Signed by: Casey Norton MD 03/05/18 20:19 FINAL REPORT [facility] BLOOD BANK RESULTS Antibody Scrn Negative (03/05/18 8:37 AM) 03/05/2018 [facility] BLOOD BANK RESULTS ABO/Rh B POS 03/05/2018 [facility] CHEM PANEL Total Protein 6.3 g/dL 6.4 - 8.4 03/05/2018 [facility] CHEM PANEL Albumin Lvl 3.0 g/dL 3.5 - 5.0 03/05/2018 [facility] CHEM PANEL Alk Phos 57 unit/L 39 - 136 03/05/2018 [facility] CHEM PANEL Bili Total 0.3 mg/dL 0.2 - 1.3 03/05/2018 [facility] CHEM PANEL ALT 12 unit/L 0 - 65 03/05/2018 [facility] CHEM PANEL AST 14 unit/L 0 - 37 03/05/2018 [facility] CHEM PANEL B/C Ratio 17 6 - 25 03/05/2018 [facility] CHEM PANEL A/G Ratio 0.9 0.7 - 1.6 03/05/2018 [facility] CHEM PANEL Globulin 3.3 g/dL 2.7 - 4.2 03/05/2018 [facility] CHEM PANEL Magnesium Lvl 2.2 mg/dL 1.8 - 2.4 03/05/2018 [facility] HEMATOLOGY Basophils 0.3 % 0.0 - 1.0 03/05/2018 [facility] HEMATOLOGY Eosinophils 0.1 % 0.0 - 4.0 03/05/2018 [facility] HEMATOLOGY Segs-Bands # 8.2 K/CMM 1.5 - 8.1 03/05/2018 [facility] HEMATOLOGY Lymphocytes # 1.0 K/CMM 1.0 - 5.5 03/05/2018 [facility] HEMATOLOGY Monocytes # 0.7 K/CMM 0.0 - 0.8 03/05/2018 [facility] HEMATOLOGY Segs 82.3 % 45.0 - 75.0 03/05/2018 [facility] HEMATOLOGY Monocytes 7.3 % 2.0 - 12.0 03/05/2018 [facility] HEMATOLOGY Lymphocytes 10.0 % 20.0 - 40.0 03/05/2018 [facility] HEMATOLOGY PT 13.1 s 12.0 - 14.7 03/05/2018 [facility] INR 0.99 0.85 - 1.17 03/05/2018 [facility] PTT 28.3 s 22.9 - 35.8 03/05/2018 [facility] HEMATOLOGY Eosinophils # 0.1 K/CMM 0.0 - 0.5 03/05/2018 [facility] HEMATOLOGY Monocytes # 0.7 K/CMM 0.0 - 0.8 03/05/2018 [facility] HEMATOLOGY Segs-Bands # 7.9 K/CMM 1.5 - 8.1 03/05/2018 [facility] Basophils 0.5 % 0.0 - 1.0 03/05/2018 [facility] Lymphocytes # 1.1 K/CMM 1.0 - 5.5 03/05/2018 [facility] Lymphocytes 11.2 % 20.0 - 40.0 03/05/2018 [facility] Segs 80.1 % 45.0 - 75.0 03/05/2018 [facility] Eosinophils 0.7 % 0.0 - 4.0 03/05/2018 [facility] Monocytes 7.5 % 2.0 - 12.0 03/05/2018 [facility] Chest 1view DX Chest 1view DX Clinical Indication: Chest pain after fall Comparison: None FINDINGS: The frontal chest radiograph shows normal lung volumes without interstitial or airspace opacities, pleural effusions or pneumothorax. The cardiomediastinal contours are normal for the age of the patient with aortic tortuosity. There are degenerative changes in the spine and shoulders. IMPRESSION: No chest radiographic evidence of acute cardiopulmonary disease. SL: [id number] 03/04/2018 - - Read by: Kendal Green MD Dictated Date/time: 03/04/18 22:11 Electronically Signed by: Kendal Green MD 03/04/18 22:11 FINAL REPORT [facility] Hip 2/3 views uni w pelvis DX Hip 2/3 views uni w pelvis DX LEFT HIP Clinical Indication: - pain sp fall Comparison: None FINDINGS: The 2 views of the left hip show intertrochanteric fracture of the left femur. There are no radio-opaque foreign bodies. The acetabulum is unremarkable. There is no radiographic evidence of femoro-acetabular impingement or acetabular dysplasia. The visualized sacroiliac joint and symphysis pubis are unremarkable. Bone mineral density is diffusely decreased. If there is further concern, recommend follow-up radiographs or MRI for complete assessment. IMPRESSION: Intertrochanteric fracture of the left femur. SL: [id number] 03/04/2018 - - Read by: Tonia Dunn MD Dictated Date/time: 03/04/18 22:10 Electronically Signed by: Tonia Dunn MD 03/04/18 22:11 FINAL REPORT [facility] Femur series DX Femur series DX Patient Name: NICK CURRIE : 1930; Age: 87 years y/o Female MR: [id number] Study: 4 view examination of the left femur dated 03/04/2018. Clinical Indication: Left thigh pain sp fall; Comparison: None Osteopenia. There is a comminuted fracture of the left basicervical and intertrochanteric femoral region which has apex lateral angulation at the fracture site and medial rotation of the left femoral head relative to the left acetabulum. No other fracture or dislocation. SL: [id number] 03/04/2018 - - Read by: Neymar Willard MD Dictated Date/time: 03/04/18 22:11 Electronically Signed by: Neymar Willard MD 03/04/18 22:14 FINAL REPORT [facility] Chest 2 views DX Chest 2 views DX EXAMINATION: Chest, 2 view, frontal and lateral HISTORY: - I10 Essential (primary) hypertension; FINDINGS: Frontal and lateral views of the chest are submitted for interpretation and compared to 04/21/2016. The cardiomediastinal silhouette is within normal limits. There are no pleural effusions or pneumothorax. There is a stable 4 mm nodule within the periphery of the right lung base. The lungs are clear without focal pneumonic consolidation or pulmonary edema. There are several compression fracture deformities of the thoracic spine which appear unchanged compared to the prior examination in 2016. There is mild reverse S shaped curvature of the thoracic spine. IMPRESSION: 1. No radiographic evidence of acute cardiopulmonary disease. 2. Stable 4 mm nodule within the periphery of the right lung base. 3. Several compression fracture deformities of the thoracic spine redemonstrated which appear unchanged compared to the prior examination in 2016. 08/04/2017 - - Read by: Gera Rodriguez MD Dictated Date/time: 08/04/17 12:24 Electronically Signed by: Gera Rodriguez MD 08/04/17 12:26 FINAL REPORT [facility] Chest 2 views DX Chest 2 views DX EXAM: 2 view(s) of the chest. INDICATION: Asthma. COMPARISON: Chest x-ray: 11/28/2015. FINDINGS: Support apparatus: None. Cardiac silhouette: Unremarkable. Nina: Unremarkable. Lobar consolidation: Negative. Pleural effusion: Negative. Pneumothorax: Negative. Other: 0.4 cm right basilar pulmonary nodule. Bones: Osteopenia. Stable mild thoracolumbar compression fractures. Other: None. IMPRESSION: 1. No acute cardiopulmonary process. 2. Millimetric right basilar pulmonary nodule. Consider nonemergent follow-up CT chest. 04/21/2016 - - Read by: Kyle Denton MD Dictated Date/time: 04/21/16 15:35 Electronically Signed by: Kyle Denton MD 04/21/16 15:37 FINAL REPORT [facility] Chest 2 views DX Chest 2 views DX Exam: Two-view chest x-ray Reason for Exam: [id number] Encounter for general adult medical examination without abnormal findings Comparison Exam: Chest x-ray 07/18/2010 and thoracic spine x-ray 08/29/2013 Discussion: Cardiomediastinal silhouette is within normal limits. Both hemidiaphragms well visualized. No pulmonary edema or pleural effusions. No focal lung consolidations. Trachea is midline. No acute bony abnormalities. stable compression fractures seen within the thoracic spine. Impression: 1. No acute cardiopulmonary abnormalities. 11/28/2015 - - Read by: Richard Edwards MD Dictated Date/time: 11/28/15 10:18 Electronically Signed by: Richard Edwards MD 11/28/15 10:35 FINAL REPORT [facility] Vital Signs Vital Sign Value Date Comments Source Systolic (mm Hg) 117 05/14/2018 SNF: [facility] Diastolic (mm Hg) 95 05/14/2018 SNF: [facility] Heart Rate 71 {beats}/min 05/14/2018 SNF: [facility] Systolic (mm Hg) 120 05/13/2018 SN[facility]: [facility] Diastolic (mm Hg) 63 05/13/2018 SNF: [facility] Heart Rate 66 {beats}/min 05/13/2018 SNF: [facility] Systolic (mm Hg) 129 05/12/2018 SNF: [facility] Diastolic (mm Hg) 60 05/12/2018 SNF: [facility] Heart Rate 61 {beats}/min 05/12/2018 SNF: [facility] Systolic (mm Hg) 140 05/12/2018 SNF: [facility] Diastolic (mm Hg) 98 05/12/2018 SNF: [facility] Heart Rate 79 {beats}/min 05/12/2018 SNF: [facility] Systolic (mm Hg) 154 05/11/2018 SNF: [facility] Diastolic (mm Hg) 71 05/11/2018 SNF: [facility] Heart Rate 60 {beats}/min 05/11/2018 SNF: [facility] Systolic (mm Hg) 131 05/11/2018 SNF: [facility] Diastolic (mm Hg) 70 05/11/2018 SNF: [facility] Heart Rate 67 {beats}/min 05/11/2018 SNF: [facility] Systolic (mm Hg) 116 05/10/2018 SNF: [facility] Diastolic (mm Hg) 63 05/10/2018 SNF: [facility] Heart Rate 60 {beats}/min 05/10/2018 [facility] [facility] [place] Systolic (mm Hg) 118 05/09/2018 [facility]: [facility] [place] Diastolic (mm Hg) 96 05/09/2018 [facility]: [facility] [place] Heart Rate 62 {beats}/min 05/09/2018 [facility]: [facility] [place] Systolic (mm Hg) 150 05/09/2018 [facility]: [facility] [place] Diastolic (mm Hg) 66 05/09/2018 [facility]: [facility] [place] Heart Rate 66 {beats}/min 05/09/2018 [facility]: [facility] [place] Systolic (mm Hg) 128 05/08/2018 [facility]: [facility] [place] Diastolic (mm Hg) 62 05/08/2018 [facility]: [facility] [place] Heart Rate 69 {beats}/min 05/08/2018 [facility]: [facility] [place] Systolic (mm Hg) 144 05/07/2018 [facility]: [facility] [place] Diastolic (mm Hg) 78 05/07/2018 [facility]: [facility] [place] Heart Rate 64 {beats}/min 05/07/2018 [facility]: [facility] [place] Height 62 05/06/2018 [facility]: [facility] [place] Systolic (mm Hg) 124 05/06/2018 [facility]: [facility] [place] Diastolic (mm Hg) 68 05/06/2018 [facility]: [facility] [place] Heart Rate 65 {beats}/min 05/06/2018 [facility]: [facility] [place] Systolic (mm Hg) 117 05/06/2018 [facility]: [facility] [place] Diastolic (mm Hg) 62 05/06/2018 [facility]: [facility] [place] Heart Rate 77 {beats}/min 05/06/2018 [facility]: [facility] [place] Systolic (mm Hg) 131 05/05/2018 [facility]: [facility] [place] Diastolic (mm Hg) 60 05/05/2018 [facility]: [facility] [place] Heart Rate 61 {beats}/min 05/05/2018 [facility]: [facility] [place] Systolic (mm Hg) 134 05/05/2018 [facility]: [facility] [place] Diastolic (mm Hg) 62 05/05/2018 [facility]: [facility] [place] Heart Rate 88 {beats}/min 05/05/2018 [facility]: [facility] [place] Systolic (mm Hg) 129 05/04/2018 [facility]: [facility] [place] Diastolic (mm Hg) 65 05/04/2018 [facility]: [facility] [place] Heart Rate 60 {beats}/min 05/04/2018 [facility]: [facility] [place] Systolic (mm Hg) 120 05/04/2018 [facility]: [facility] [place] Diastolic (mm Hg) 63 05/04/2018 [facility]: [facility] [place] Heart Rate 67 {beats}/min 05/04/2018 [facility]: [facility] [place] Systolic (mm Hg) 131 05/03/2018 [facility]: [facility] [place] Diastolic (mm Hg) 64 05/03/2018 [facility]: [facility] [place] Heart Rate 61 {beats}/min 05/03/2018 [facility]: [facility] [place] Systolic (mm Hg) 119 05/03/2018 [facility]: [facility] [place] Diastolic (mm Hg) 63 05/03/2018 [facility]: [facility] [place] Heart Rate 72 {beats}/min 05/03/2018 [facility]: [facility] [place] Systolic (mm Hg) 138 05/02/2018 [facility]: [facility] [place] Diastolic (mm Hg) 76 05/02/2018 [facility]: [facility] [place] Heart Rate 80 {beats}/min 05/02/2018 [facility]: [facility] [place] Systolic (mm Hg) 140 05/01/2018 [facility]: [facility] [place] Diastolic (mm Hg) 67 05/01/2018 [facility]: [facility] [place] Heart Rate 82 {beats}/min 05/01/2018 [facility]: [facility] [place] Systolic (mm Hg) 133 05/01/2018 [facility]: [facility] [place] Diastolic (mm Hg) 65 05/01/2018 [facility]: [facility] [place] Heart Rate 83 {beats}/min 05/01/2018 [facility]: [facility] [place] Systolic (mm Hg) 136 04/30/2018 SN[facility]: [facility] [place] Diastolic (mm Hg) 67 04/30/2018 [facility]: [facility] [place] Heart Rate 78 {beats}/min 04/30/2018 [facility]: [facility] [place] Systolic (mm Hg) 147 04/30/2018 [facility]: [facility] [place] Diastolic (mm Hg) 60 04/30/2018 [facility]: [facility] [place] Heart Rate 73 {beats}/min 04/30/2018 [facility]: [facility] [place] Systolic (mm Hg) 149 04/29/2018 [facility]: [facility] [place] Diastolic (mm Hg) 70 04/29/2018 [facility]: [facility] [place] Heart Rate 66 {beats}/min 04/29/2018 [facility]: [facility] [place] Systolic (mm Hg) 117 04/29/2018 [facility]: [facility] [place] Diastolic (mm Hg) 64 04/29/2018 [facility]: [facility] [place] Heart Rate 71 {beats}/min 04/29/2018 [facility]: [facility] [place] Systolic (mm Hg) 118 04/29/2018 [facility]: [facility] [place] Diastolic (mm Hg) 70 04/29/2018 [facility]: [facility] [place] Heart Rate 62 {beats}/min 04/29/2018 SN[facility]: [facility] [place] Weight 122 04/28/2018 SN[facility]: [facility] [place] Systolic (mm Hg) 127 04/28/2018 [facility]: [facility] [place] Diastolic (mm Hg) 63 04/28/2018 [facility]: [facility] [place] Heart Rate 78 {beats}/min 04/28/2018 [facility]: [facility] [place] Systolic (mm Hg) 148 04/28/2018 SN[facility]: [facility] [place] Diastolic (mm Hg) 68 04/28/2018 SN[facility]: [facility] [place] Temperature Oral (F) 97.8 F 04/28/2018 SN[facility]: [facility] [place] Heart Rate 70 {beats}/min 04/28/2018 [facility]: [facility] [place] Heart Rate 85 04/28/2018 [facility] Systolic (mm Hg) 150 04/28/2018 [facility] Diastolic (mm Hg) 76 04/28/2018 [facility] Temperature Oral (F) 98.3 F 04/28/2018 [facility] Systolic (mm Hg) 152 04/27/2018 [facility] Diastolic (mm Hg) 71 04/27/2018 [facility] Respitory Rate 18 04/27/2018 [facility] Heart Rate 70 04/27/2018 [facility] Temperature Oral (F) 98.5 F 04/27/2018 [facility] Respitory Rate 18 04/27/2018 [facility] Heart Rate 65 04/27/2018 [facility] Temperature Oral (F) 97.6 F 04/27/2018 [facility] Systolic (mm Hg) 129 04/27/2018 [facility] Diastolic (mm Hg) 76 04/27/2018 [facility] Respitory Rate 18 04/27/2018 [facility] BMI Calculated 24.01 04/23/2018 [facility] Weight 59.545 04/23/2018 [facility] Height 157.48 cm 04/23/2018 [facility] Height 152.4 cm 04/22/2018 [facility] BMI Calculated 24.46 04/22/2018 [facility] Weight 56.818 04/22/2018 [facility] Respitory Rate 18 04/13/2018 [facility] Heart Rate 64 04/13/2018 [facility] Systolic (mm Hg) 139 04/13/2018 [facility] Diastolic (mm Hg) 58 04/13/2018 [facility] Temperature Oral (F) 98.4 F 04/13/2018 [facility] Systolic (mm Hg) 153 04/13/2018 [facility] Diastolic (mm Hg) 63 04/13/2018 [facility] Systolic (mm Hg) 166 04/13/2018 [facility] Diastolic (mm Hg) 52 04/13/2018 [facility] Heart Rate 62 04/13/2018 [facility] Temperature Oral (F) 98.1 F 04/13/2018 [facility] Respitory Rate 16 04/13/2018 [facility] Systolic (mm Hg) 132 03/31/2018 SN[facility]: [facility] [place] Diastolic (mm Hg) 69 03/31/2018 SN[facility]: [facility] [place] Heart Rate 73 {beats}/min 03/31/2018 [facility]: [facility] [place] Systolic (mm Hg) 131 03/30/2018 SN[facility]: [facility] [place] Diastolic (mm Hg) 66 03/30/2018 SN[facility]: [facility] [place] Heart Rate 68 {beats}/min 03/30/2018 [facility]: [facility] [place] Systolic (mm Hg) 119 03/30/2018 [facility]: [facility] [place] Diastolic (mm Hg) 57 03/30/2018 SN[facility]: [facility] [place] Heart Rate 69 {beats}/min 03/30/2018 [facility]: [facility] [place] Systolic (mm Hg) 128 03/29/2018 [facility]: [facility] [place] Diastolic (mm Hg) 67 03/29/2018 [facility]: [facility] [place] Heart Rate 72 {beats}/min 03/29/2018 [facility]: [facility] [place] Systolic (mm Hg) 131 03/29/2018 [facility]: [facility] [place] Diastolic (mm Hg) 64 03/29/2018 [facility]: [facility] [place] Heart Rate 66 {beats}/min 03/29/2018 [facility]: [facility] [place] Systolic (mm Hg) 121 03/28/2018 [facility]: [facility] [place] Diastolic (mm Hg) 60 03/28/2018 [facility]: [facility] [place] Heart Rate 67 {beats}/min 03/28/2018 [facility]: [facility] [place] Systolic (mm Hg) 112 03/28/2018 [facility]: [facility] [place] Diastolic (mm Hg) 60 03/28/2018 [facility]: [facility] [place] Heart Rate 74 {beats}/min 03/28/2018 [facility]: [facility] [place] Systolic (mm Hg) 135 03/26/2018 [facility]: [facility] [place] Diastolic (mm Hg) 64 03/26/2018 [facility]: [facility] [place] Heart Rate 70 {beats}/min 03/26/2018 [facility]: [facility] [place] Systolic (mm Hg) 110 03/26/2018 [facility]: [facility] [place] Diastolic (mm Hg) 58 03/26/2018 [facility]: [facility] [place] Heart Rate 71 {beats}/min 03/26/2018 [facility]: [facility] [place] Systolic (mm Hg) 112 03/25/2018 [facility]: [facility] [place] Diastolic (mm Hg) 60 03/25/2018 [facility]: [facility] [place] Heart Rate 75 {beats}/min 03/25/2018 [facility]: [facility] [place] Systolic (mm Hg) 126 03/25/2018 [facility]: [facility] [place] Diastolic (mm Hg) 81 03/25/2018 [facility]: [facility] [place] Heart Rate 76 {beats}/min 03/25/2018 [facility]: [facility] [place] Systolic (mm Hg) 125 03/24/2018 [facility]: [facility] [place] Diastolic (mm Hg) 60 03/24/2018 [facility]: [facility] [place] Heart Rate 72 {beats}/min 03/24/2018 [facility]: [facility] [place] Systolic (mm Hg) 136 03/24/2018 [facility]: [facility] [place] Diastolic (mm Hg) 61 03/24/2018 [facility]: [facility] [place] Heart Rate 83 {beats}/min 03/24/2018 [facility]: [facility] [place] Systolic (mm Hg) 115 03/23/2018 SN[facility]: [facility] [place] Diastolic (mm Hg) 64 03/23/2018 [facility]: [facility] [place] Heart Rate 76 {beats}/min 03/23/2018 [facility]: [facility] [place] Systolic (mm Hg) 113 03/23/2018 [facility]: [facility] [place] Diastolic (mm Hg) 57 03/23/2018 [facility]: [facility] [place] Heart Rate 74 {beats}/min 03/23/2018 [facility]: [facility] [place] Systolic (mm Hg) 110 03/22/2018 [facility]: [facility] [place] Diastolic (mm Hg) 60 03/22/2018 [facility]: [facility] [place] Heart Rate 73 {beats}/min 03/22/2018 [facility]: [facility] [place] Systolic (mm Hg) 124 03/22/2018 [facility]: [facility] [place] Diastolic (mm Hg) 60 03/22/2018 [facility]: [facility] [place] Heart Rate 81 {beats}/min 03/22/2018 [facility]: [facility] [place] Systolic (mm Hg) 126 03/21/2018 [facility]: [facility] [place] Diastolic (mm Hg) 66 03/21/2018 [facility]: [facility] [place] Heart Rate 78 {beats}/min 03/21/2018 [facility]: [facility] [place] Systolic (mm Hg) 120 03/19/2018 [facility]: [facility] [place] Diastolic (mm Hg) 60 03/19/2018 [facility]: [facility] [place] Heart Rate 70 {beats}/min 03/19/2018 [facility]: [facility] [place] Systolic (mm Hg) 129 03/19/2018 [facility]: [facility] [place] Diastolic (mm Hg) 66 03/19/2018 [facility]: [facility] [place] Heart Rate 73 {beats}/min 03/19/2018 [facility]: [facility] [place] Systolic (mm Hg) 133 03/18/2018 [facility]: [facility] [place] Diastolic (mm Hg) 75 03/18/2018 [facility]: [facility] [place] Heart Rate 76 {beats}/min 03/18/2018 [facility]: [facility] [place] Systolic (mm Hg) 112 03/18/2018 [facility]: [facility] [place] Diastolic (mm Hg) 67 03/18/2018 [facility]: [facility] [place] Heart Rate 78 {beats}/min 03/18/2018 [facility]: [facility] [place] Systolic (mm Hg) 125 03/17/2018 [facility]: [facility] [place] Diastolic (mm Hg) 68 03/17/2018 [facility]: [facility] [place] Heart Rate 82 {beats}/min 03/17/2018 [facility]: [facility] [place] Systolic (mm Hg) 116 03/17/2018 [facility]: [facility] [place] Diastolic (mm Hg) 60 03/17/2018 [facility]: [facility] [place] Heart Rate 96 {beats}/min 03/17/2018 [facility]: [facility] [place] Systolic (mm Hg) 123 03/16/2018 [facility]: [facility] [place] Diastolic (mm Hg) 60 03/16/2018 [facility]: [facility] [place] Heart Rate 80 {beats}/min 03/16/2018 [facility]: [facility] [place] Systolic (mm Hg) 131 03/16/2018 [facility]: [facility] [place] Diastolic (mm Hg) 61 03/16/2018 [facility]: [facility] [place] Heart Rate 84 {beats}/min 03/16/2018 [facility]: [facility] [place] Weight 128 03/16/2018 [facility]: [facility] [place] Height 62 03/16/2018 [facility]: [facility] [place] Systolic (mm Hg) 125 03/15/2018 [facility]: [facility] [place] Diastolic (mm Hg) 68 03/15/2018 [facility]: [facility] [place] Heart Rate 75 {beats}/min 03/15/2018 [facility]: [facility] [place] Systolic (mm Hg) 114 03/15/2018 [facility]: [facility] [place] Diastolic (mm Hg) 84 03/15/2018 [facility]: [facility] [place] Heart Rate 86 {beats}/min 03/15/2018 [facility]: [facility] [place] Systolic (mm Hg) 133 03/14/2018 [facility]: [facility] [place] Diastolic (mm Hg) 71 03/14/2018 [facility]: [facility] [place] Heart Rate 80 {beats}/min 03/14/2018 [facility]: [facility] [place] Systolic (mm Hg) 129 03/14/2018 [facility]: [facility] [place] Diastolic (mm Hg) 60 03/14/2018 [facility]: [facility] [place] Heart Rate 84 {beats}/min 03/14/2018 [facility]: [facility] [place] Systolic (mm Hg) 130 03/14/2018 [facility]: [facility] [place] Diastolic (mm Hg) 68 03/14/2018 [facility]: [facility] [place] Heart Rate 78 {beats}/min 03/14/2018 [facility]: [facility] [place] Systolic (mm Hg) 146 03/13/2018 [facility]: [facility] [place] Diastolic (mm Hg) 58 03/13/2018 [facility]: [facility] [place] Heart Rate 81 {beats}/min 03/13/2018 [facility]: [facility] [place] Systolic (mm Hg) 131 03/12/2018 [facility]: [facility] [place] Diastolic (mm Hg) 72 03/12/2018 [facility]: [facility] [place] Heart Rate 68 {beats}/min 03/12/2018 [facility]: [facility] [place] Systolic (mm Hg) 135 03/12/2018 [facility]: [facility] [place] Diastolic (mm Hg) 66 03/12/2018 [facility]: [facility] [place] Heart Rate 75 {beats}/min 03/12/2018 [facility]: [facility] [place] Systolic (mm Hg) 132 03/12/2018 [facility]: [facility] [place] Diastolic (mm Hg) 78 03/12/2018 [facility]: [facility] [place] Temperature Oral (F) 97.6 F 03/12/2018 [facility]: [facility] [place] Respitory Rate 18 03/12/2018 [facility]: [facility] [place] Heart Rate 76 {beats}/min 03/12/2018 [facility]: [facility] [place] Systolic (mm Hg) 128 03/11/2018 [facility]: [facility] [place] Diastolic (mm Hg) 60 03/11/2018 [facility]: [facility] [place] Heart Rate 84 {beats}/min 03/11/2018 [facility]: [facility] [place] Heart Rate 78 03/11/2018 [facility] Respitory Rate 16 03/11/2018 [facility] Systolic (mm Hg) 109 03/11/2018 [facility] Diastolic (mm Hg) 64 03/11/2018 [facility] Temperature Oral (F) 98.4 F 03/11/2018 [facility] Systolic (mm Hg) 113 03/11/2018 [facility] Diastolic (mm Hg) 64 03/11/2018 [facility] Respitory Rate 16 03/11/2018 [facility] Heart Rate 74 03/11/2018 [facility] Temperature Oral (F) 97.9 F 03/11/2018 [facility] Systolic (mm Hg) 109 03/11/2018 [facility] Diastolic (mm Hg) 65 03/11/2018 [facility] Respitory Rate 16 03/11/2018 [facility] Heart Rate 76 03/11/2018 [facility] Temperature Oral (F) 98.0 F 03/11/2018 [facility] Height 62 03/09/2018 [facility] Weight 128 03/09/2018 [facility] Weight 60.909 03/05/2018 [facility] BMI Calculated 24.56 03/05/2018 [facility] Height 157.48 cm 03/05/2018 [facility] Encounters Location Location Details Encounter Type Encounter Number Reason For Visit Attending Provider ADM Date DC Date Status Source [facility] [place] [facility] [id number] Afshin Marie 11/28/2015 11/29/2015 [facility] [place] [facility] [place] [facility] [id number] Afshin Marie 04/21/2016 04/22/2016 [facility] [place] [facility] [place] [facility] [id number] Afsihn Marie 08/04/2017 08/05/2017 [facility] Inpatient [id number] Yoni Ann 03/05/2018 03/11/2018 [facility] Emergency [id number] John Bullard 04/13/2018 04/13/2018 [facility] Inpatient [id number] Shaun Wilkerson 04/22/2018 04/28/2018 [facility] Procedures Procedure Code Date Perfomer Comments Source ORIF - Open reduction and internal fixation of fracture [id number] 03/05/2018 [facility]
--- OUTSIDE RECORDS SUMMARY | 2018-11-30 15:42 | XMS REPORT | Summary of Care ---
Author Author [facility] Organization [facility] Address Unknown Phone Unavailable Encounter HQ Amy(LALY) [id number] Date(s): 04/13/18 - 04/13/18 [facility] [address] [place] [address]- [phone] Encounter Diagnosis Acute pain of right hip (Discharge Diagnosis) - 04/13/18 Discharge Disposition: Home or Self Care Attending Physician: John Bullard DO Vital Signs 1 2 3 Most recent to oldest [Reference Range]: 98.4 DegF (04/13/18 4:00 PM) 98.1 DegF (04/13/18 12:10 PM) Temperature Oral [96.4-99.1 DegF] 139/58 mmHg (04/13/18 4:00 PM) 153/63 mmHg *HI* (04/13/18 3:36 PM) 166/52 mmHg *HI* (04/13/18 3:00 PM) Blood Pressure [90-140/60-90 mmHg] 18 BRMIN (04/13/18 4:00 PM) 16 BRMIN (04/13/18 12:10 PM) Respiratory Rate [14-20 BRMIN] 64 bpm (04/13/18 4:00 PM) 62 bpm (04/13/18 12:10 PM) Peripheral Pulse Rate [60-100 bpm] Problem List No data available for this section Allergies, Adverse Reactions, Alerts Substance Reaction Severity Status CODINE Active PCN Active traMADol Active Medications ibuprofen 800 mg, 2 tab, Route: PO, Drug form: TAB, ONCE, Dosing Weight 60.909, kg, Priori ty: STAT, Start date: 04/13/18 14:39:00 CDT, Stop date: 04/13/18 14:39:00 CDT Notes: (Same as: Motrin)"Do Not Crush" Give with food. Start Date: 04/13/18 Stop Date: 04/13/18 Status: Completed [place] 5/325 oral tablet 1 tab, Route: PO, Drug Form: TAB, Dosing Weight 60.909, kg, ONCE, STAT, Start da te: 04/13/18 15:48:00 CDT, Stop date: 04/13/18 15:48:00 CDT Notes: (Same as: [place] 325/5) Do not exceed 4gm/day of acetaminophen. Start Date: 04/13/18 Stop Date: 04/13/18 Status: Completed Tylenol 975 mg, 3 tab, Route: PO, Drug form: TAB, ONCE, Dosing Weight 60.909, kg, Priori ty: STAT, Start date: 04/13/18 14:39:00 CDT, Stop date: 04/13/18 14:39:00 CDT Notes: Do not exceed 4 gm/day. (Same as: Tylenol) Start Date: 04/13/18 Stop Date: 04/13/18 Status: Completed Results URINE AND STOOL Most recent to 1 oldest [Reference Range]: UA Turbidity [Clear] Clear (04/13/18 2:03 PM) UA Color [Yellow] Yellow *NA* (04/13/18 2:03 PM) UA pH [5.0-8.0] 6.0 (04/13/18 2:03 PM) UA Spec Grav 1.014 [<=1.030] (04/13/18 2:03 PM) UA Glucose [Negative Negative mg/dL mg/dL] *NA* (04/13/18 2:03 PM) UA Blood [Negative] Moderate *ABN* (04/13/18 2:03 PM) UA Ketones [Negative Negative mg/dL mg/dL] *NA* (04/13/18 2:03 PM) UA Protein [Negative Negative mg/dL mg/dL] (04/13/18 2:03 PM) UA Urobilinogen <=1.0 mg/dL [0.1-1.0 mg/dL] *NA* (04/13/18 2:03 PM) UA Bili [Negative] Negative *NA* (04/13/18 2:03 PM) UA Leuk Est Small [Negative] *ABN* (04/13/18 2:03 PM) UA Nitrite Negative [Negative] (04/13/18 2:03 PM) UA WBC [0-5 /HPF] 4 /HPF (04/13/18 2:03 PM) UA RBC [0-2 /HPF] 6 /HPF *HI* (04/13/18 2:03 PM) UA Bacteria [None Occasional /HPF Seen /HPF] *NA* (04/13/18 2:03 PM) UA Sq Epi [Few /LPF] Occasional /LPF *NA* (04/13/18 2:03 PM) UA Mucus [None Seen Few /LPF /LPF] *NA* (04/13/18 2:03 PM) Immunizations Given and Recorded Vaccine Date Status Refusal Reason pneumococcal 13-valent vaccine 03/05/18 Given Procedures No data available for this section Social History Social History Type Response Smoking Status Never smoker; Exposure to Tobacco Smoke None; Cigarette Smoking Last 365 Days No; Reg Smoking Cessation Counseling No entered on: 04/13/18 Assessment and Plan No data available for this section
--- OUTSIDE RECORDS SUMMARY | 2018-11-30 15:42 | XMS REPORT | Summary of Care ---
Author Author [facility] Organization [facility] Address Unknown Phone Unavailable Encounter LORI Reyes(LALY) [id number] Date(s): 03/04/18 - 03/11/18 [facility] [address] [place] [address]- [phone] Discharge Disposition: Long Term Facility Attending Physician: Yoni Ann MD Admitting Physician: Yoni Ann MD Vital Signs 1 2 3 Most recent to oldest [Reference Range]: 157.48 cm (03/05/18 3:12 AM) Height 98.4 DegF (03/11/18 1:53 PM) 97.9 DegF (03/11/18 7:40 AM) 98.0 DegF (03/11/18 4:15 AM) Temperature Oral [96.4-99.1 DegF] 109/64 mmHg (03/11/18 1:53 PM) 113/64 mmHg (03/11/18 7:40 AM) 109/65 mmHg (03/11/18 4:15 AM) Blood Pressure [90-140/60-90 mmHg] 16 BRMIN (03/11/18 1:53 PM) 16 BRMIN (03/11/18 7:40 AM) 16 BRMIN (03/11/18 4:15 AM) Respiratory Rate [14-20 BRMIN] 78 bpm (03/11/18 1:53 PM) 74 bpm (03/11/18 7:40 AM) 76 bpm (03/11/18 4:15 AM) Peripheral Pulse Rate [60-100 bpm] 60.909 kg (03/05/18 3:12 AM) Weight 24.56 m2 (03/05/18 3:12 AM) Body Mass Index Problem List No data available for this section Allergies, Adverse Reactions, Alerts Substance Reaction Severity Status CODINE Active PCN Active traMADol Active Medications acetaminophen 650 mg, 2 tab, Route: PO, Drug form: TAB, Q4H, Dosing Weight 60.909, kg, PRN Ambika n 1-3/Temp > 100.4 F, Start date: 03/05/18 18:37:00 CDT, Duration: 30 day, Stop date: 04/04/18 18:36:00 CDT Notes: Do not exceed 4 gm/day. (Same as: Tylenol) Start Date: 03/05/18 Stop Date: 03/06/18 Status: Discontinued acetaminophen-hydrocodone 325 mg-5 mg oral tablet 2 tab, Route: PO, Drug Form: TAB, Dosing Weight 66.364, kg, Q4H, PRN Pain Score 7-10, Start date: 03/04/18 23:58:00 CDT, Duration: 30 day, Stop date: 04/03/18 2 3:57:00 CDT Notes: (Same as: Whitney 325/5) Do not exceed 4gm/day of acetaminophen. Start Date: 03/04/18 Stop Date: 03/06/18 Status: Discontinued Al hydroxide/Mg hydroxide/simethicone 200 mg-200 mg-20 mg/5 mL oral suspension 30 ml, Route: PO, Drug Form: SUSP, Dosing Weight 60.909, kg, Q4H, PRN Indigestio n, Start date: 03/05/18 18:37:00 CDT, Duration: 30 day, Stop date: 04/04/18 18:3 6:00 CDT Notes: (aluminum hydroxide-magnesium hyd-simethicone [id number]/5ml 30 ml ud S US) Start Date: 03/05/18 Stop Date: 03/11/18 Status: Discontinued Amidate (ANES) Route: IV, Drug form: INJ, ONCE, Stop date: 03/05/18 18:33:00 CDT Start Date: 03/05/18 Stop Date: 03/05/18 Status: Completed Ancef + sterile water 20 mL 2 gm, Route: IV, ONCE, Dosing Weight 60.909, kg, Start date: 03/05/18 7:49:00 CD T, Stop date: 03/05/18 7:49:00 CDT, Surgical Prophylaxis Only; For patients < 120 kg, ABX Indication: Surgical Prophylaxis Notes: (Same As: William Win) MEDICATION WASTE Product Size: 1000 mgP roduct Wasted: ___ mg Start Date: 03/05/18 Stop Date: 03/05/18 Status: Completed ANES acetaminophen 1,000 mg, Route: PO, Drug form: TAB, ONCE, Dosing Weight 60.909, kg, PRN Pain Sc ore 1-3, Start date: 03/05/18 18:45:00 CDT Start Date: 03/05/18 Stop Date: 03/05/18 Status: Discontinued ANES albuterol 0.083% inhalation solution 2.49 mg, Route: NEB, Q20Min, Dosing Weight 60.909, kg, PRN Wheezing, Priority: S TAT, Start date: 03/05/18 18:45:00 CDT, Duration: 30 day, Stop date: 04/04/18 18 :44:00 CDT Start Date: 03/05/18 Stop Date: 03/05/18 Status: Discontinued ANES dexamethasone 4 mg, Route: IVP, ONCE, Dosing Weight 60.909, kg, PRN Nausea & Vomiting, Start date: 03/05/18 18:45:00 CDT Start Date: 03/05/18 Stop Date: 03/05/18 Status: Discontinued ANES diphenhydrAMINE 12.5 mg, Route: IVP, Drug form: INJ, Q6H, Dosing Weight 60.909, kg, PRN Itching, Start date: 03/05/18 18:45:00 CDT, Duration: 30 day, Stop date: 04/04/18 18:44: 00 CDT Start Date: 03/05/18 Stop Date: 03/05/18 Status: Discontinued ANES esmolol 10 mg, Route: IVP, Q5Min, Dosing Weight 60.909, kg, PRN Other -See Comment, Star t date: 03/05/18 18:45:00 CDT, Duration: 5 doses or times, Stop date: Limited # of times Start Date: 03/05/18 Stop Date: 03/05/18 Status: Discontinued ANES fentaNYL 50 microgram, Route: IVP, Q5Min, Dosing Weight 60.909, kg, PRN Pain Score 7-10, Priority: Routine, Start date: 03/05/18 18:45:00 CDT, Duration: 2 doses or times , Stop date: Limited # of times Start Date: 03/05/18 Stop Date: 03/05/18 Status: Completed ANES fentaNYL 25 microgram, Route: IVP, Q5Min, Dosing Weight 60.909, kg, PRN Pain Score 4-6, P riority: Routine, Start date: 03/05/18 18:45:00 CDT, Duration: 4 doses or times, Stop date: Limited # of times Start Date: 03/05/18 Stop Date: 03/05/18 Status: Discontinued ANES flumazenil 0.2 mg, Route: IVP, PRN, Dosing Weight 60.909, kg, PRN Benzodiazepine Reversal, Initial dose, Start date: 03/05/18 18:45:00 CDT, Duration: 30 day, Stop date: 18:44:00 CDT Start Date: 03/05/18 Stop Date: 03/05/18 Status: Discontinued ANES hydrALAZINE 10 mg, Route: IVP, Q20Min, Dosing Weight 60.909, kg, PRN Elevated BP, Start date : 03/05/18 18:45:00 CDT, Duration: 2 doses or times, Stop date: Limited # of demetrio es Start Date: 03/05/18 Stop Date: 03/05/18 Status: Discontinued ANES HYDROmorphone 0.5 mg, Route: IVP, Q5Min, Dosing Weight 60.909, kg, PRN Pain Score 7-10, Start date: 03/05/18 18:45:00 CDT, Duration: 4 doses or times, Stop date: Limited # of times Start Date: 03/05/18 Stop Date: 03/05/18 Status: Discontinued ANES labetalol 10 mg, Route: IVP, Q5Min, Dosing Weight 60.909, kg, PRN Elevated BP, Start date: 03/05/18 18:45:00 CDT, Duration: 5 doses or times, Stop date: Limited # of times Start Date: 03/05/18 Stop Date: 03/05/18 Status: Discontinued ANES meperidine 12.5 mg, Route: IVP, Q30Min, Dosing Weight 60.909, kg, PRN Other -See Comment, F or shivering, Start date: 03/05/18 18:45:00 CDT, Duration: 2 doses or times, Sto p date: Limited # of times Start Date: 03/05/18 Stop Date: 03/05/18 Status: Discontinued ANES morphine Sulfate 4 mg, Route: IVP, Q5Min, Dosing Weight 60.909, kg, PRN Pain Score 7-10, Start da te: 03/05/18 18:45:00 CDT, Duration: 3 doses or times, Stop date: Limited # of t imes Start Date: 03/05/18 Stop Date: 03/05/18 Status: Discontinued ANES morphine Sulfate 2 mg, Route: IVP, Q5Min, Dosing Weight 60.909, kg, PRN Pain Score 4-6, Start chao e: 03/05/18 18:45:00 CDT, Duration: 5 doses or times, Stop date: Limited # of ti mes Start Date: 03/05/18 Stop Date: 03/05/18 Status: Discontinued ANES naloxone 0.4 mg, Route: IVP, Q2MIN, Dosing Weight 60.909, kg, PRN Narcotic Reversal, Star t date: 03/05/18 18:45:00 CDT, Duration: 8 doses or times, Stop date: Limited # of times Start Date: 03/05/18 Stop Date: 03/05/18 Status: Discontinued ANES ondansetron 4 mg, Route: IVP, ONCE, Dosing Weight 60.909, kg, PRN Nausea & Vomiting, Start date: 03/05/18 18:45:00 CDT Start Date: 03/05/18 Stop Date: 03/05/18 Status: Discontinued ANES oxyCODONE 5 mg, Route: PO, Drug form: TAB, Q4H, Dosing Weight 60.909, kg, PRN Pain Score 4 -6, Start date: 03/05/18 18:45:00 CDT, Duration: 30 day, Stop date: 04/04/18 18: 44:00 CDT Start Date: 03/05/18 Stop Date: 03/05/18 Status: Discontinued ANES oxyCODONE 10 mg, Route: PO, Drug form: TAB, Q4H, Dosing Weight 60.909, kg, PRN Pain Score 7-10, Start date: 03/05/18 18:45:00 CDT, Duration: 30 day, Stop date: 04/04/18 1 8:44:00 CDT Start Date: 03/05/18 Stop Date: 03/05/18 Status: Discontinued ceFAZolin (ANES) Route: IV, Drug form: INJ, ONCE, Stop date: 03/05/18 17:38:00 CDT Start Date: 03/05/18 Stop Date: 03/05/18 Status: Completed ceFAZolin (SCIP) + sterile water 10 mL 1 gm, Route: IVP, Q8H, Dosing Weight 60.909, kg, Start date: 03/06/18 1:00:00 CD T, Duration: 1 doses or times, Stop date: 03/06/18 1:00:00 CDT, ABX Indication: Surgical Prophylaxis Notes: (Same As: William Win) MEDICATION WASTE Product Size: 1000 mgP roduct Wasted: ___ mg Start Date: 03/06/18 Stop Date: 03/06/18 Status: Completed cefOXitin (ANES) Route: IV, Drug form: INJ, ONCE, Stop date: 03/05/18 17:48:00 CDT Start Date: 03/05/18 Stop Date: 03/05/18 Status: Deleted clindamycin (SCIP) 600 mg, 50 mL, Route: IVPB, Drug form: INJ, [id number], Dosing Weight 60.909, kg, St art date: 03/05/18 21:00:00 CDT, Duration: 1 doses or times, Stop date: 03/05/18 21:00:00 CDT, ABX Indication: Surgical Prophylaxis Start Date: 03/05/18 Stop Date: 03/05/18 Status: Completed cyclobenzaprine 10 mg oral tablet 5 mg=0.5 tab, PO, TID, PRN Spasm, 0 Refill(s) Start Date: 03/11/18 Status: Ordered dexamethasone (ANES) Route: IV, Drug form: INJ, ONCE, Stop date: 03/05/18 18:33:00 CDT Start Date: 03/05/18 Stop Date: 03/05/18 Status: Completed Dilaudid 0.5 mg, 0.5 mL, Route: IVP, Drug form: INJ, ONCE, Dosing Weight 66.364, kg, Prio rity: STAT, Start date: 03/04/18 23:37:00 CDT, Stop date: 03/04/18 23:37:00 CDT Notes: Same as: Dilaudid Start Date: 03/04/18 Stop Date: 03/05/18 Status: Completed diphenhydrAMINE 12.5 mg, 0.5 tab, Route: PO, Drug form: TAB, Q6H, Dosing Weight 60.909, kg, PRN Itching, Start date: 03/05/18 18:37:00 CDT, Duration: 30 day, Stop date: 8 18:36:00 CDT Start Date: 03/05/18 Stop Date: 03/06/18 Status: Discontinued docusate sodium 100 mg oral capsule 100 mg, 1 cap, Route: PO, Drug form: CAP, BID, Dosing Weight 60.909, kg, Start d ate: 03/06/18 9:00:00 CDT, Duration: 30 day, Stop date: 04/04/18 17:00:00 CDT Notes: (Same as: Colace) (Do Not Crush) Start Date: 03/06/18 Stop Date: 03/11/18 Status: Discontinued Dulcolax Laxative 5 mg, 1 tab, Route: PO, Drug form: ECTAB, Q24H, Dosing Weight 60.909, kg, PRN Co nstipation, Start date: 03/05/18 18:37:00 CDT, Duration: 30 day, Stop date: 03/10 05/26 18:36:00 CDT Notes: (Same As: Dulcolax, Correctol) (Do Not Crush) "Do Not Crush" Start Date: 03/05/18 Stop Date: 03/11/18 Status: Discontinued enoxaparin 40 mg=0.4 mL, SUB-Q, [id number], 0 Refill(s) Start Date: 03/09/18 Status: Ordered enoxaparin 40 mg, 0.4 mL, Route: SUB-Q, Drug form: INJ, [id number], Dosing Weight 60.909, kg, Start date: 03/06/18 9:00:00 CDT, Stop date: 04/03/18 9:00:00 CDT Notes: (Same as: Lovenox) Start Date: 03/06/18 Stop Date: 03/11/18 Status: Discontinued esmolol (ANES) Route: IV, Drug form: INJ, ONCE, Stop date: 03/05/18 18:33:00 CDT Start Date: 03/05/18 Stop Date: 03/05/18 Status: Completed fentaNYL 50 microgram, Route: IVP, ONCE, Dosing Weight 66.364, kg, Priority: STAT, Start date: 03/04/18 23:59:00 CDT, Stop date: 03/04/18 23:59:00 CDT Start Date: 03/04/18 Stop Date: 03/05/18 Status: Completed fentaNYL 50 microgram, Route: IVP, ONCE, Dosing Weight 66.364, kg, Priority: STAT, Start date: 03/04/18 21:49:00 CDT, Stop date: 03/04/18 21:49:00 CDT Start Date: 03/04/18 Stop Date: 03/04/18 Status: Completed fentaNYL (ANES) Route: IV, Drug form: INJ, ONCE, Stop date: 03/05/18 18:33:00 CDT Start Date: 03/05/18 Stop Date: 03/05/18 Status: Completed fentaNYL (ANES) Route: IV, Drug form: INJ, ONCE, Stop date: 03/05/18 17:48:00 CDT Start Date: 03/05/18 Stop Date: 03/05/18 Status: Completed Flexeril 5 mg, 0.5 tab, Route: PO, Drug form: TAB, TID, Dosing Weight 60.909, kg, PRN Spa sm, Start date: 03/06/18 9:00:00 CDT, Duration: 30 day, Stop date: 04/05/18 8:59 :00 CDT Notes: (Same As: Flexeril) Start Date: 03/06/18 Stop Date: 03/11/18 Status: Discontinued glycopyrrolate (ANES) Route: IV, Drug form: INJ, ONCE, Stop date: 03/05/18 18:33:00 CDT Start Date: 03/05/18 Stop Date: 03/05/18 Status: Completed hydrALAZINE 10 mg, 0.5 mL, Route: IVP, Drug form: INJ, Q4H, Dosing Weight 60.909, kg, PRN Hy pertension, Start date: 03/05/18 10:13:00 CDT, Duration: 30 day, Stop date: 03/10 05/26 10:12:00 CDT Notes: (Same as: Apresoline)Push over 5 minutes Start Date: 03/05/18 Stop Date: 03/11/18 Status: Discontinued hydromorphone 0.3 mg, 0.3 mL, Route: IV, Drug form: INJ, Q4H, PRN Pain Score 7-10, Start date: 03/05/18 5:00:00 CDT, Duration: 30 day, Stop date: 04/04/18 4:59:00 CDT Notes: Same as: Dilaudid Start Date: 03/05/18 Stop Date: 03/06/18 Status: Discontinued Lactated Ringers Injection IV (ANES) 1000 mL Route: IV, Total Volume: 1,000, Start date: 03/05/18 16:58:00 CDT, Stop date: 17:58:00 CDT Start Date: 03/05/18 Stop Date: 03/05/18 Status: Completed Lactated Ringers Injection IV 1000 mL 1,000 mL, Rate: 125 ml/hr, Infuse over: 8 hr, Route: IV, Dosing Weight 60.909 kg , Total Volume: 1,000, Start date: 03/05/18 18:45:00 CDT, Duration: 30 day, Stop date: 04/04/18 18:44:00 CDT, 1.65, m2 Start Date: 03/05/18 Stop Date: 03/05/18 Status: Discontinued Lactated Ringers IV 1,000 mL 1,000 mL, Rate: 75 ml/hr, Infuse over: 13.3 hr, Route: IV, Dosing Weight 60.909 kg, Total Volume: 1,000, Start date: 03/05/18 18:37:00 CDT, Duration: 30 day, St op date: 04/04/18 18:36:00 CDT, 1.65, m2 Start Date: 03/05/18 Stop Date: 03/06/18 Status: Discontinued Levaquin 500 mg oral tablet 500 mg=1 tab, PO, Q24H, X 7 day, # 7 tab, 0 Refill(s) Start Date: 03/11/18 Stop Date: 03/18/18 Status: Ordered lidocaine (ANES) Route: IV, Drug form: INJ, ONCE, Stop date: 03/05/18 18:03:00 CDT Start Date: 03/05/18 Stop Date: 03/05/18 Status: Completed lidocaine topical patch (5% film) 1 patch, TOP, Daily, 0 Refill(s) Start Date: 03/09/18 Status: Ordered lidocaine topical patch (5% film) 1 patch, Route: TOP, Daily, Drug form: FILM, Start date: 03/06/18 9:00:00 CDT, D uration: 30 day, Stop date: 04/04/18 9:00:00 CDT Notes: Apply only once for up to 12 hours in [id number] period (12 hours on and 12 hours off).(Same as: Lidoderm)"Remove old patch before application of new patch" Start Date: 03/06/18 Stop Date: 03/11/18 Status: Discontinued melatonin 3 mg, 1 tab, Route: PO, Drug form: TAB, Bedtime, Dosing Weight 60.909, kg, PRN S leep, Start date: 03/05/18 10:13:00 CDT, Duration: 30 day, Stop date: 04/04/18 1 0:12:00 CDT Notes: (Same as: Melatonin) Start Date: 03/05/18 Stop Date: 03/10/18 Status: Discontinued melatonin 3 mg, 1 tab, Route: PO, Drug form: TAB, Bedtime, Dosing Weight 60.909, kg, PRN S leep, Start date: 03/10/18 14:42:00 CDT, Duration: 30 day, Stop date: 04/09/18 1 4:41:00 CDT Notes: (Same as: Melatonin) Start Date: 03/10/18 Stop Date: 03/11/18 Status: Discontinued metoclopramide (ANES) Route: IV, Drug form: INJ, ONCE, Stop date: 03/05/18 18:03:00 CDT Start Date: 03/05/18 Stop Date: 03/05/18 Status: Completed metoprolol (ANES) Route: IV, Drug form: INJ, ONCE, Stop date: 03/05/18 18:33:00 CDT Start Date: 03/05/18 Stop Date: 03/05/18 Status: Completed metoprolol 25 mg oral tablet, extended release 25 mg=1 tab, PO, Daily, # 30 tab, 0 Refill(s) Start Date: 03/08/18 Stop Date: 03/09/18 Status: Discontinued metoprolol extended release 12.5 mg, 0.5 tab, Route: PO, Drug form: ERTAB, Q12H, Start date: 03/08/18 21:00: 00 CDT, Duration: 30 day, Stop date: 04/07/18 9:00:00 CDT Notes: (Same as: Toprol XL) Do Not Crush Start Date: 03/08/18 Stop Date: 03/09/18 Status: Discontinued metoprolol tartrate 12.5 mg, 0.5 tab, Route: PO, Drug form: TAB, BID, Dosing Weight 60.909, kg, Star t date: 03/05/18 17:00:00 CDT, Duration: 30 day, Stop date: 04/04/18 9:00:00 CDT Notes: (Same as: Lopressor) Start Date: 03/05/18 Stop Date: 03/06/18 Status: Discontinued metoprolol tartrate 25 mg, PO, BID, metoprolol 2mg 1/2 tab twice daily per medication bottle, 0 Refi ll(s) Start Date: 03/05/18 Stop Date: 03/08/18 Status: Deleted metoprolol tartrate 12.5 mg, 0.5 tab, Route: PO, Drug form: TAB, Q12H, Dosing Weight 60.909, kg, Sta rt date: 03/11/18 9:00:00 CDT, Duration: 30 day, Stop date: 04/09/18 21:00:00 CD T Notes: (Same as: Lopressor) Start Date: 03/11/18 Stop Date: 03/11/18 Status: Discontinued metoprolol tartrate 25 mg oral tablet 12.5 mg=0.5 tab, PO, Q12H, 0 Refill(s) Start Date: 03/11/18 Status: Ordered midazolam (ANES) Route: IV, Drug form: SOLN, ONCE, Stop date: 03/05/18 17:33:00 CDT Start Date: 03/05/18 Stop Date: 03/05/18 Status: Deleted morphine Sulfate 2 mg, Route: IVP, Q4H, Dosing Weight 66.364, kg, PRN Pain Score 7-10, Start date : 03/04/18 23:58:00 CDT, Duration: 30 day, Stop date: 04/03/18 23:57:00 CDT Start Date: 03/04/18 Stop Date: 03/05/18 Status: Deleted morphine Sulfate 6 mg, 3 mL, Route: PO, Drug form: SOLN, Q4H, Dosing Weight 60.909, kg, PRN Pain Score 7-10, Start date: 03/07/18 17:26:00 CDT, Stop date: 04/06/18 17:25:00 CDT Notes: (Same as:MORPhine Sulfate) Start Date: 03/07/18 Stop Date: 03/10/18 Status: Discontinued neostigmine (ANES) Route: IV, Drug form: INJ, ONCE, Stop date: 03/05/18 18:33:00 CDT Start Date: 03/05/18 Stop Date: 03/05/18 Status: Completed Whitney 5/325 oral tablet 1 tab, Route: PO, Drug Form: TAB, Dosing Weight 60.909, kg, Q6H, PRN Pain Score 1-3, Start date: 03/07/18 17:26:00 CDT, Duration: 30 day, Stop date: 04/06/18 17 :25:00 CDT Notes: (Same as: Whitney 325/5) Do not exceed 4gm/day of acetaminophen. Start Date: 03/07/18 Stop Date: 03/08/18 Status: Discontinued Whitney 7.5/325 oral tablet 1 tab, Route: PO, Drug Form: TAB, Dosing Weight 60.909, kg, Q6H, PRN Pain Score 4-6, Start date: 03/08/18 12:53:00 CDT, Duration: 30 day, Stop date: 04/07/18 12 :52:00 CDT Notes: Same as Whitney 325-7.5mg Do not exceed 4gm/day of acetaminophen. Start Date: 03/08/18 Stop Date: 03/11/18 Status: Discontinued norepinephrine (ANES) Route: IV, Drug form: INJ, ONCE, Stop date: 03/05/18 18:03:00 CDT Start Date: 03/05/18 Stop Date: 03/05/18 Status: Completed normal saline 0.9% IV 250 mL 250 mL, Rate: 30 ml/hr, Infuse over: 8.3 hr, Route: IV, Dosing Weight 60.909 kg, Total Volume: 250, Start date: 03/07/18 6:23:00 CDT, Duration: 1 day, Stop date: 03/08/18 6:22:00 CDT, 1.65, m2 Start Date: 03/07/18 Stop Date: 03/08/18 Status: Completed NURSE please update PT's HEIGHT in [facility] when possible NURSE please update PT's HEIGHT in [facility] when possible, 1, Drug form: MISC, Pricila e: MISC, Q30Min, 03/05/18 8:00:00 CDT, Duration: 4 doses or times, Stop date: 9:30:00 CDT Start Date: 03/05/18 Stop Date: 03/05/18 Status: Voided With Results ondansetron (ANES) Route: IV, Drug form: INJ, ONCE, Stop date: 03/05/18 18:33:00 CDT Start Date: 03/05/18 Stop Date: 03/05/18 Status: Completed pantoprazole 40 mg, 1 tab, Route: PO, Drug form: ECTAB, Daily, Dosing Weight 60.909, kg, Star t date: 03/06/18 9:00:00 CDT, Duration: 30 day, Stop date: 04/04/18 9:00:00 CDT Notes: Tablet should not be chewed or crushed.(Same as: Protonix) Start Date: 03/06/18 Stop Date: 03/11/18 Status: Discontinued pneumococcal 13-valent vaccine 0.5 mL, Route: IM, Drug Form: INJ, Daily, Start date: 03/05/18 9:00:00 CDT, Dura tion: 1 doses or times, Stop date: 03/05/18 9:00:00 CDT Notes: Shake well prior to use (Same as: Prevnar 13) Start Date: 03/05/18 Stop Date: 03/05/18 Status: Completed potassium chloride 40 mEq, 2 tab, Route: PO, Drug form: ERTAB, ONCE, Dosing Weight 60.909, kg, Star t date: 03/11/18 12:27:00 CDT, Stop date: 03/11/18 12:27:00 CDT Notes: (Same as: K-Dur 20)"Do Not Crush"For patients unable to swallow tablet, d issolve in one half glass of water. Allow about 2 minutes for the tablets to dis integrate. Stir before giving to prepare slurry and administer.Please exclude Pa tients with feeding tube less than 14 [place] (Dobhoff, J-tube etc) and pediat rachell and patients. With food and full glass of water Start Date: 03/11/18 Stop Date: 03/11/18 Status: Completed propofol (ANES) Route: IV, Drug form: INJ, ONCE, Stop date: 03/05/18 17:48:00 CDT Start Date: 03/05/18 Stop Date: 03/05/18 Status: Completed Protonix 40 mg, 1 tab, Route: PO, Drug form: ECTAB, Before Dinner, Dosing Weight 60.909, kg, Start date: 03/05/18 16:30:00 CDT, Duration: 30 day, Stop date: 04/03/18 16: 30:00 CDT Notes: Tablet should not be chewed or crushed.(Same as: Protonix) Start Date: 03/05/18 Stop Date: 03/05/18 Status: Deleted Protonix 40 mg, PO, Daily, # 30 tab, 0 Refill(s) Start Date: 03/05/18 Stop Date: 04/04/18 Status: Ordered remove patch Route: TOP, Bedtime, Drug form: ERFILM, Start date: 03/06/18 21:00:00 CDT, Durat ion: 30 day, Stop date: 04/04/18 21:00:00 CDT Notes: Remove patch 12 hours after application each day. Start Date: 03/06/18 Stop Date: 03/11/18 Status: Discontinued rocuronium (ANES) Route: IV, Drug form: INJ, ONCE, Stop date: 03/05/18 18:33:00 CDT Start Date: 03/05/18 Stop Date: 03/05/18 Status: Completed Saline Flush 0.9% 10 ml, Route: IVP, Drug Form: INJ, Dosing Weight 66.364, kg, PRN, PRN Line Flush , Start date: 03/04/18 23:58:00 CDT, Duration: 30 day, Stop date: 04/03/18 23:57 :00 CDT Notes: (Same as: BD Posiflush) Start Date: 03/04/18 Stop Date: 03/11/18 Status: Discontinued Sodium Chloride 0.9% IV 1,000 mL 1,000 mL, Rate: 75 ml/hr, Infuse over: 13.3 hr, Route: IV, Dosing Weight 66.364 kg, Total Volume: 1,000, Start date: 03/04/18 23:58:00 CDT, Duration: 30 day, St op date: 04/03/18 23:57:00 CDT Start Date: 03/04/18 Stop Date: 03/06/18 Status: Discontinued Tylenol 650 mg, 2 tab, Route: PO, Drug form: TAB, Q6H, Dosing Weight 60.909, kg, PRN Ambika n Score 4-6, Start date: 03/10/18 14:42:00 CDT, Duration: 30 day, Stop date: 11/26 14:41:00 CDT Notes: Do not exceed 4 gm/day. (Same as: Tylenol) Start Date: 03/10/18 Stop Date: 03/11/18 Status: Discontinued Tylenol 1,000 mg, 2 tab, Route: PO, Drug form: TAB, Daily, Dosing Weight 60.909, kg, PRN Pain Score 4-6, Start date: 03/06/18 8:57:00 CDT, Duration: 30 day, Stop date: 04/05/18 8:56:00 CDT Notes: Max acetaminophen 4000 mg/day (4 gm/day). (Same as: Tylenol Extra Streng th) Start Date: 03/06/18 Stop Date: 03/10/18 Status: Discontinued Tylenol 1,000 mg, 2 tab, Route: PO, Drug form: TAB, TID, Dosing Weight 60.909, kg, Start date: 03/06/18 12:00:00 CDT, Duration: 30 day, Stop date: 04/05/18 6:00:00 CDT Notes: Max acetaminophen 4000 mg/day (4 gm/day). (Same as: Tylenol Extra Streng th) Start Date: 03/06/18 Stop Date: 03/07/18 Status: Discontinued Zosyn + Sodium Chloride 0.9% IV 100 mL 3.375 gm, Route: IVPB, [id number], Dosing Weight 60.909, kg, CrCl >=20 ml/min infuse over 4 hours, Start date: 03/09/18 20:00:00 CDT, Duration: 10 day, Stop date: 03/19/18 12:00:00 CDT, ABX Indication: Other (specify in Comments) Notes: (Same as: Zosyn)Dosing based on Piperacillin component MEDICATION [place]SON Product Size: 3375 mgProduct Wasted: ___ mg Start Date: 03/09/18 Stop Date: 03/11/18 Status: Discontinued Results BLOOD BANK RESULTS 1 2 3 Most recent to oldest [Reference Range]: B POS *Unknown* (03/05/18 8:37 AM) ABO/Rh Negative (03/05/18 8:37 AM) Antibody Scrn Product available 1 (03/07/18 6:22 AM) RBC product 1Result Comment: 03/07/2018 07:20 GE called to shraddha 03/07/2018 07:20 ELECTROLYTES 1 2 3 Most recent to oldest [Reference Range]: 144 mEq/L (03/11/18 3:34 AM) 143 mEq/L (03/10/18 4:17 AM) 142 mEq/L (03/09/18 4:25 AM) Sodium Lvl [135-145 mEq/L] 3.6 mEq/L (03/11/18 3:34 AM) 3.3 mEq/L *LOW* (03/10/18 4:17 AM) 3.7 mEq/L (03/09/18 4:25 AM) Potassium Lvl [3.5-5.1 mEq/L] 111 mEq/L *HI* (03/11/18 3:34 AM) 109 mEq/L (03/10/18 4:17 AM) 107 mEq/L (03/09/18 4:25 AM) Chloride Lvl [95-109 mEq/L] 26 mEq/L (03/11/18 3:34 AM) 28 mEq/L (03/10/18 4:17 AM) 27 mEq/L (03/09/18 4:25 AM) CO2 [24-32 mEq/L] 10.6 mEq/L (03/11/18 3:34 AM) 9.3 mEq/L *LOW* (03/10/18 4:17 AM) 11.7 mEq/L (03/09/18 4:25 AM) AGAP [10.0-20.0 mEq/L] CHEM PANEL 1 2 3 Most recent to oldest [Reference Range]: 0.56 mg/dL (03/11/18 3:34 AM) 0.55 mg/dL (03/10/18 4:17 AM) 0.59 mg/dL (03/09/18 4:25 AM) Creatinine Lvl [0.50-1.40 mg/dL] 85 mL/min/1.73m2 1 *NA* (03/11/18 3:34 AM) 86 mL/min/1.73m2 2 *NA* (03/10/18 4:17 AM) 84 mL/min/1.73m2 3 *NA* (03/09/18 4:25 AM) eGFR 14 mg/dL (03/11/18 3:34 AM) 13 mg/dL (03/10/18 4:17 AM) 9 mg/dL (03/09/18 4:25 AM) BUN [7-22 mg/dL] 17 (03/05/18 4:02 AM) B/C Ratio [6-25] 83 mg/dL (03/11/18 3:34 AM) 88 mg/dL (03/10/18 4:17 AM) 96 mg/dL (03/09/18 4:25 AM) Glucose Lvl [70-99 mg/dL] 6.3 g/dL *LOW* (03/05/18 4:02 AM) Total Protein [6.4-8.4 g/dL] 3.0 g/dL *LOW* (03/05/18 4:02 AM) Albumin Lvl [3.5-5.0 g/dL] 3.3 g/dL (03/05/18 4:02 AM) Globulin [2.7-4.2 g/dL] 0.9 (03/05/18 4:02 AM) A/G Ratio [0.7-1.6] 7.9 mg/dL *LOW* (03/11/18 3:34 AM) 7.9 mg/dL *LOW* (03/10/18 4:17 AM) 8.1 mg/dL *LOW* (03/09/18 4:25 AM) Calcium Lvl [8.5-10.5 mg/dL] 2.2 mg/dL (03/05/18 4:02 AM) Magnesium Lvl [1.8-2.4 mg/dL] 12 unit/L (03/05/18 4:02 AM) ALT [0-65 unit/L] 14 unit/L (03/05/18 4:02 AM) AST [0-37 unit/L] 57 unit/L (03/05/18 4:02 AM) Alk Phos [39-136 unit/L] 0.3 mg/dL (03/05/18 4:02 AM) Bili Total [0.2-1.3 mg/dL] 1Result Comment: The eGFR is calculated using the [...] from the National Kid[employer] Education Program ( NKDEP) which additionally recommends that when the eGFR is used in patients with extremes of body mass index for purposes of drug dosing, the eGFR should be mul tiplied by the estimated BMI. 2Result Comment: The eGFR is calculated using the [...] from the National Kid[employer] Education Program ( NKDEP) which additionally recommends that when the eGFR is used in patients with extremes of body mass index for purposes of drug dosing, the eGFR should be mul tiplied by the estimated BMI. 3Result Comment: The eGFR is calculated using the [...] from the National Kid[employer] Disease Education Program ( NKDEP) which additionally recommends that when the eGFR is used in patients with extremes of body mass index for purposes of drug dosing, the eGFR should be mul tiplied by the estimated BMI. HEMATOLOGY 1 2 3 Most recent to oldest [Reference Range]: 5.9 K/CMM (03/11/18 3:34 AM) 9.2 K/CMM (03/10/18 4:17 AM) 7.9 K/CMM (03/09/18 4:25 AM) WBC [3.7-10.4 K/CMM] 3.07 M/CMM *LOW* (03/11/18 3:34 AM) 3.02 M/CMM *LOW* (03/10/18 4:17 AM) 3.12 M/CMM *LOW* (03/09/18 4:25 AM) RBC [4.20-5.40 M/CMM] 8.8 g/dL *LOW* (03/11/18 3:34 AM) 8.8 g/dL *LOW* (03/10/18 4:17 AM) 9.2 g/dL *LOW* (03/09/18 4:25 AM) Hgb [12.0-16.0 g/dL] 26.7 % *LOW* (03/11/18 3:34 AM) 26.0 % *LOW* (03/10/18 4:17 AM) 27.1 % *LOW* (03/09/18 4:25 AM) Hct [36.0-48.0 %] 86.9 fL (03/11/18 3:34 AM) 86.3 fL (03/10/18 4:17 AM) 86.6 fL (03/09/18 4:25 AM) MCV [80.0-98.0 fL] 28.7 pg (03/11/18 3:34 AM) 29.1 pg (03/10/18 4:17 AM) 29.5 pg (03/09/18 4:25 AM) MCH [27.0-31.0 pg] 33.0 g/dL (03/11/18 3:34 AM) 33.7 g/dL (03/10/18 4:17 AM) 34.0 g/dL (03/09/18 4:25 AM) MCHC [32.0-36.0 g/dL] 16.1 % *HI* (03/11/18 3:34 AM) 16.2 % *HI* (03/10/18 4:17 AM) 16.3 % *HI* (03/09/18 4:25 AM) RDW [11.5-14.5 %] 7.8 fL (03/11/18 3:34 AM) 7.9 fL (03/10/18 4:17 AM) 8.5 fL (03/09/18 4:25 AM) MPV [7.4-10.4 fL] 214 K/CMM (03/11/18 3:34 AM) 187 K/CMM (03/10/18 4:17 AM) 150 K/CMM (03/09/18 4:25 AM) Platelet [133-450 K/CMM] 78.8 % *HI* (03/06/18 4:59 AM) 82.3 % *HI* (03/05/18 4:02 AM) 80.1 % *HI* (03/04/18 10:06 PM) Segs [45.0-75.0 %] 8.8 % *LOW* (03/06/18 4:59 AM) 10.0 % *LOW* (03/05/18 4:02 AM) 11.2 % *LOW* (03/04/18 10:06 PM) Lymphocytes [20.0-40.0 %] 12.1 % *HI* (03/06/18 4:59 AM) 7.3 % (03/05/18 4:02 AM) 7.5 % (03/04/18 10:06 PM) Monocytes [2.0-12.0 %] 0.1 % (03/05/18 4:02 AM) 0.7 % (03/04/18 10:06 PM) Eosinophils [0.0-4.0 %] 0.3 % (03/06/18 4:59 AM) 0.3 % (03/05/18 4:02 AM) 0.5 % (03/04/18 10:06 PM) Basophils [0.0-1.0 %] 10.0 K/CMM *HI* (03/06/18 4:59 AM) 8.2 K/CMM *HI* (03/05/18 4:02 AM) 7.9 K/CMM (03/04/18 10:06 PM) Segs-Bands # [1.5-8.1 K/CMM] 1.1 K/CMM (03/06/18 4:59 AM) 1.0 K/CMM (03/05/18 4:02 AM) 1.1 K/CMM (03/04/18 10:06 PM) Lymphocytes # [1.0-5.5 K/CMM] 1.5 K/CMM *HI* (03/06/18 4:59 AM) 0.7 K/CMM (03/05/18 4:02 AM) 0.7 K/CMM (03/04/18 10:06 PM) Monocytes # [0.0-0.8 K/CMM] 0.1 K/CMM (03/04/18 10:06 PM) Eosinophils # [0.0-0.5 K/CMM] 13.1 seconds (03/04/18 10:06 PM) PT [12.0-14.7 seconds] 0.99 (03/04/18 10:06 PM) INR [0.85-1.17] 28.3 seconds (03/04/18 10:06 PM) PTT [22.9-35.8 seconds] Immunizations Given and Recorded Vaccine Date Status Refusal Reason pneumococcal 13-valent vaccine 03/05/18 Given Procedures No data available for this section Social History Social History Type Response Smoking Status Never smoker; Exposure to Tobacco Smoke None; Cigarette Smoking Last 365 Days No; Reg Smoking Cessation Counseling No entered on: 03/05/18 Assessment and Plan Extracted from: Title: Discharge Summary * Author: Yoni Ann MD Date: 03/11/18 Discharge Information Disposition: [facility] facility Condition: Stable Medications: See med reconciliation form Diet: Heart healthy Discharge Plan In the event of any worsening symptoms patient was to come back to the ED for further evaluation Discharge summary to greater than 35 minutes Extracted from: Title: Clinical Document Author: Jose Mora MD Date: 03/11/18 PM&R PROGRESS NOTE CHIEF COMPLAINT IDENTIFICATION: An 87-year-old lady being seen for ongoing rehabilitation needs after having an acute traumatic left hip intratrochanteric femur fracture with ORIF. INTERVAL EVENTS AND SUBJECTIVE: All interval events reviewed. No new fevers, chills, nausea, vomiting, chest pain, palpitations, headaches, or dizziness. No new focal strength or sensation changes. No new bowel or bladder complaints. Mood is good. Pain significantly improved. PHYSICAL EXAMINATION: Vitals and Temp: VitalsTmp(F)[id number] 03/11 07:[id number]--- 03/11 04:[id number]--- 03/11 00:[id number]--- 03/10 20:[id number]--- 03/10 17:[id number]--- 24 Hr Tmax: 98.3F (36.83c) at 03/11 00:15Vital Signs are the last 5 in the past 48 hours. GENERAL: No apparent distress, sitting at the bedside. PSYCH: She is alert, oriented, appropriate, pleasant and cooperative. HEENT: Pupils equal, round, reactive to light. Extraocular muscles intact. Moist mucous membranes. CARDIOVASCULAR: 2+ bilateral upper extremity pulses. Regular rate and rhythm all extremities, warm, well-perfused. PULMONARY: Respirations unlabored without conversational dyspnea. ABDOMEN: Doughy, nontender, nondistended. GENITOURINARY: No Dick. SKIN: No new breakdown or rashes. NEUROMUSCULOSKELETAL: Cranial nerves II-XII are intact. Strength 4/5 in the bilateral upper extremities, 4/5 in the right lower extremity, 2/5 in the left lower extremity pain disinhibition with breakaway weakness. LABORATORY DATA: Labs (Last four charted values) WBC 5.9(MARCH 11)9.2(MARCH 10)7.9(MARCH 09)9.2(MAR 08) Hgb L 8.8(MARCH 11)L 8.8(MARCH 10)L 9.2(MARCH 09)L 9.9(MAR 08) Hct L 26.7(MARCH 11)L 26.0(MARCH 10)L 27.1(MARCH 09)L 29.5(MAR 08) Plt 214(MARCH 11)187(MARCH 10)150(MARCH 09)L 122(MAR 08) Na 144(MARCH 11)143(MARCH 10)142(MARCH 09)141(MAR 08) K 3.6(MARCH 11)L 3.3(MARCH 10)3.7(MARCH 09)3.8(MAR 08) CO2 26(MARCH 11)28(MARCH 10)27(MARCH 09)25(MAR 08) Cl H 111(MARCH 11)109(MARCH 10)107(MARCH 09)108(MAR 08) Cr 0.56(MARCH 11)0.55(MARCH 10)0.59(MARCH 09)0.52(MAR 08) BUN 14(MARCH 11)13(MARCH 10)9(MARCH 09)11(MAR 08) Glucose Random 83(MARCH 11)88(MARCH 10)96(MARCH 09)H 101(MAR 08) Mg 2.2(MAR 05) Ca L 7.9(MARCH 11)L 7.9(MARCH 10)L 8.1(MARCH 09)L 7.8(MAR 08) PT 13.1(MAR 04) INR 0.99(MAR 04) PTT 28.3(MAR 04) IMAGING STUDIES: No new imaging. ASSESSMENT AND PLAN: The patient has 87-year-old lady with: 1. Acute traumatic left hip intratrochanteric femur fracture status post ORIF. Continue 50% weightbearing. Continue postoperative risk reduction. Continue rehabilitation therapies. Continue Lovenox. -Mize out POD 14 2. Acute postoperative left hip pain: Well controlled. Continue ice, positioning, range of motion, stretching. 3. Acute postoperative blood loss anemia, hemoglobin stable. Continue monitoring nutrition and fluids. 4. Fever: No source identified. Continue to monitor bowel, bladder and skin. Continue pulmonary hygiene and incentive spirometry. No overt evidence for infection. 5. Rehabilitation for deficits in mobility, ADLs, IADLs, weakness, incoordination and balance: I reviewed all interval therapy notes. With the physical therapy, she is overall improving with her repetitions in the bed. Improving progress with standing activities, taking 4-5 steps. We are recommending a referral to the senior care center with 1 to 2 hours of therapy per day and 24-hour nursing care. Case mgmt has contacted family. -Plan for SNF today.
--- OUTSIDE RECORDS SUMMARY | 2018-11-30 15:42 | XMS REPORT ---
Author Author Marcus Baca Organization Unknown Address [id number] Phone Unavailable Care Team Providers Care Sas Administrator Name Role Phone Dr. 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 03/11/2018 Active M62.81 MUSCLE WEAKNESS (GENERALIZED) 03/12/2018 Active 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 03/11/2018 Active Medications Medication Dose Form Route Sig Text Dates Status Metoprolol Tartrate Tablet 12.5 mg Tablet Oral Give 12.5 mg by mouth two times a day for HTN Hold for SBP less than 110, HR less than 60 03/11/2018 17:00:00 Lidocaine Patch 5 % Patch External Apply to hip topically one time a day for pain and remove per schedule 03/12/2018 9:00:00 Cyclobenzaprine HCl Tablet 5 MG 1 tablet Tablet Oral Give 1 tablet by mouth every 8 hours as needed for Spasm 03/11/2018 16:15:00 Griffith Tablet 7.5-325 MG 1 tablet Tablet Oral Give 1 tablet by mouth every 6 hours as needed for pain 03/11/2018 16:15:00 Xarelto Tablet 10 MG 1 tablet Tablet Oral Give 1 tablet by mouth one time a day related to UNSPECIFIED FRACTURE OF LEFT FEMUR, SEQUELA (S72.92XS) 03/13/2018 9:00:00 Cipro Tablet 500 MG 500 mg Tablet Oral Give 500 mg by mouth two times a day for diverticulitis needs stop date 03/28/2018 17:00:00 MetroNIDAZOLE Tablet 500 MG 500 mg Tablet Oral Give 500 mg by mouth three times a day for diverticulitis needs stop date 03/28/2018 17:00:00 Enoxaparin Sodium Solution 40 MG/0.4ML 0.4 ml Solution Subcutaneous Inject 0.4 ml subcutaneously one time a day for Prophylactic for 2 Days 03/12/2018 9:00:00 03/14/2018 8:59:00 Completed Levaquin Tablet 500 MG 1 tablet Tablet Oral Give 1 tablet by mouth one time a day for Prophylactic for 7 Days 03/12/2018 9:00:00 03/19/2018 8:59:00 Completed Enoxaparin Sodium Solution 40 MG/0.4ML 0.4 ml Solution Subcutaneous Inject 0.4 ml subcutaneously one time a day for Prophylactic for 14 Days 03/12/2018 9:00:00 03/11/2018 16:14:00 Aborted Results Date Test Result Interpretation Reference Range Status Notes Blood sugar 03/09/2018 Blood sugar mmol/L Vital signs Description Observation Date BODY HEIGHT (MEASURED) 62.0 [in_i] 03/09/2018 BODY WEIGHT (MEASURED) 128.0 [lb_av] 03/09/2018 INTRAVASCULAR SYSTOLIC 128.0 mm[Hg] 03/11/2018 17:34:22 INTRAVASCULAR DIASTOLIC 60.0 mm[Hg] 03/11/2018 17:34:22 HEART BEAT 84.0 {beats}/min 03/11/2018 17:34:22 PAIN LEVEL 2.0 {score} 03/11/2018 18:27:10 PAIN LEVEL 3.0 {score} 03/11/2018 20:01:00 INTRAVASCULAR SYSTOLIC 132.0 mm[Hg] 03/11/2018 22:45:00 INTRAVASCULAR DIASTOLIC 78.0 mm[Hg] 03/11/2018 22:45:00 BODY TEMPERATURE 97.6 [degF] 03/11/2018 22:45:00 RESPIRATION RATE 18.0 /min 03/11/2018 22:45:00 HEART BEAT 76.0 {beats}/min 03/11/2018 22:45:00 OXYGEN SATURATION 98.0 % 03/11/2018 22:45:00 PAIN LEVEL 0.0 {score} 03/12/2018 1:02:03 PAIN LEVEL 0.0 {score} 03/12/2018 7:04:40 INTRAVASCULAR SYSTOLIC 135.0 mm[Hg] 03/12/2018 10:51:01 INTRAVASCULAR DIASTOLIC 66.0 mm[Hg] 03/12/2018 10:51:01 HEART BEAT 75.0 {beats}/min 03/12/2018 10:51:01 PAIN LEVEL 7.0 {score} 03/12/2018 13:55:26 PAIN LEVEL 1.0 {score} 03/12/2018 15:02:37 PAIN LEVEL 1.0 {score} 03/12/2018 16:11:57 INTRAVASCULAR SYSTOLIC 131.0 mm[Hg] 03/12/2018 16:34:50 INTRAVASCULAR DIASTOLIC 72.0 mm[Hg] 03/12/2018 16:34:50 HEART BEAT 68.0 {beats}/min 03/12/2018 16:34:50 PAIN LEVEL 4.0 {score} 03/12/2018 18:13:00 PAIN LEVEL 2.0 {score} 03/12/2018 21:13:38 PAIN LEVEL 0.0 {score} 03/13/2018 8:23:10 INTRAVASCULAR SYSTOLIC 146.0 mm[Hg] 03/13/2018 10:29:01 INTRAVASCULAR DIASTOLIC 58.0 mm[Hg] 03/13/2018 10:29:01 HEART BEAT 81.0 {beats}/min 03/13/2018 10:29:01 PAIN LEVEL 4.0 {score} 03/13/2018 17:59:06 INTRAVASCULAR SYSTOLIC 130.0 mm[Hg] 03/13/2018 20:09:56 INTRAVASCULAR DIASTOLIC 68.0 mm[Hg] 03/13/2018 20:09:56 HEART BEAT 78.0 {beats}/min 03/13/2018 20:09:56 PAIN LEVEL 1.0 {score} 03/13/2018 20:46:58 INTRAVASCULAR SYSTOLIC 129.0 mm[Hg] 03/14/2018 9:52:56 INTRAVASCULAR DIASTOLIC 60.0 mm[Hg] 03/14/2018 9:52:56 HEART BEAT 84.0 {beats}/min 03/14/2018 9:52:56 PAIN LEVEL 5.0 {score} 03/14/2018 9:53:00 PAIN LEVEL 1.0 {score} 03/14/2018 14:52:47 INTRAVASCULAR SYSTOLIC 133.0 mm[Hg] 03/14/2018 17:00:38 INTRAVASCULAR DIASTOLIC 71.0 mm[Hg] 03/14/2018 17:00:38 HEART BEAT 80.0 {beats}/min 03/14/2018 17:00:38 PAIN LEVEL 7.0 {score} 03/15/2018 10:45:00 INTRAVASCULAR SYSTOLIC 114.0 mm[Hg] 03/15/2018 11:04:38 INTRAVASCULAR DIASTOLIC 84.0 mm[Hg] 03/15/2018 11:04:38 HEART BEAT 86.0 {beats}/min 03/15/2018 11:04:38 PAIN LEVEL 7.0 {score} 03/15/2018 15:39:32 PAIN LEVEL 7.0 {score} 03/15/2018 15:39:43 PAIN LEVEL 2.0 {score} 03/15/2018 15:40:02 INTRAVASCULAR SYSTOLIC 125.0 mm[Hg] 03/15/2018 17:10:25 INTRAVASCULAR DIASTOLIC 68.0 mm[Hg] 03/15/2018 17:10:25 HEART BEAT 75.0 {beats}/min 03/15/2018 17:10:25 PAIN LEVEL 2.0 {score} 03/15/2018 17:48:38 PAIN LEVEL 5.0 {score} 03/15/2018 23:22:26 PAIN LEVEL 0.0 {score} 03/16/2018 0:27:00 BODY WEIGHT (MEASURED) 128.0 [lb_av] 03/16/2018 3:02:00 BODY HEIGHT (MEASURED) 62.0 [in_i] 03/16/2018 3:02:00 INTRAVASCULAR SYSTOLIC 131.0 mm[Hg] 03/16/2018 10:01:21 INTRAVASCULAR DIASTOLIC 61.0 mm[Hg] 03/16/2018 10:01:21 HEART BEAT 84.0 {beats}/min 03/16/2018 10:01:21 PAIN LEVEL 6.0 {score} 03/16/2018 11:05:00 PAIN LEVEL 6.0 {score} 03/16/2018 17:05:46 PAIN LEVEL 3.0 {score} 03/16/2018 17:09:08 INTRAVASCULAR SYSTOLIC 123.0 mm[Hg] 03/16/2018 17:22:59 INTRAVASCULAR DIASTOLIC 60.0 mm[Hg] 03/16/2018 17:22:59 HEART BEAT 80.0 {beats}/min 03/16/2018 17:22:59 PAIN LEVEL 3.0 {score} 03/16/2018 19:00:00 PAIN LEVEL 2.0 {score} 03/16/2018 22:03:34 PAIN LEVEL 2.0 {score} 03/16/2018 22:03:46 PAIN LEVEL 0.0 {score} 03/17/2018 2:43:40 PAIN LEVEL 0.0 {score} 03/17/2018 7:52:05 PAIN LEVEL 5.0 {score} 03/17/2018 7:54:33 INTRAVASCULAR SYSTOLIC 116.0 mm[Hg] 03/17/2018 10:07:21 INTRAVASCULAR DIASTOLIC 60.0 mm[Hg] 03/17/2018 10:07:21 HEART BEAT 96.0 {beats}/min 03/17/2018 10:07:21 PAIN LEVEL 1.0 {score} 03/17/2018 13:15:02 INTRAVASCULAR SYSTOLIC 125.0 mm[Hg] 03/17/2018 16:37:14 INTRAVASCULAR DIASTOLIC 68.0 mm[Hg] 03/17/2018 16:37:14 HEART BEAT 82.0 {beats}/min 03/17/2018 16:37:14 PAIN LEVEL 3.0 {score} 03/17/2018 17:43:27 PAIN LEVEL 2.0 {score} 03/17/2018 17:43:52 PAIN LEVEL 2.0 {score} 03/17/2018 20:34:20 PAIN LEVEL 0.0 {score} 03/18/2018 1:57:41 PAIN LEVEL 3.0 {score} 03/18/2018 7:56:18 INTRAVASCULAR SYSTOLIC 112.0 mm[Hg] 03/18/2018 9:50:05 INTRAVASCULAR DIASTOLIC 67.0 mm[Hg] 03/18/2018 9:50:05 HEART BEAT 78.0 {beats}/min 03/18/2018 9:50:05 INTRAVASCULAR SYSTOLIC 133.0 mm[Hg] 03/18/2018 16:44:39 INTRAVASCULAR DIASTOLIC 75.0 mm[Hg] 03/18/2018 16:44:39 HEART BEAT 76.0 {beats}/min 03/18/2018 16:44:39 PAIN LEVEL 3.0 {score} 03/18/2018 21:26:11 PAIN LEVEL 7.0 {score} 03/18/2018 23:21:03 PAIN LEVEL 0.0 {score} 03/19/2018 0:55:00 PAIN LEVEL 6.0 {score} 03/19/2018 9:26:28 PAIN LEVEL 6.0 {score} 03/19/2018 9:26:44 INTRAVASCULAR SYSTOLIC 129.0 mm[Hg] 03/19/2018 10:06:24 INTRAVASCULAR DIASTOLIC 66.0 mm[Hg] 03/19/2018 10:06:24 HEART BEAT 73.0 {beats}/min 03/19/2018 10:06:24 PAIN LEVEL 1.0 {score} 03/19/2018 12:13:54 INTRAVASCULAR SYSTOLIC 120.0 mm[Hg] 03/19/2018 16:25:27 INTRAVASCULAR DIASTOLIC 60.0 mm[Hg] 03/19/2018 16:25:27 HEART BEAT 70.0 {beats}/min 03/19/2018 16:25:27 PAIN LEVEL 2.0 {score} 03/19/2018 17:56:46 PAIN LEVEL 0.0 {score} 03/20/2018 11:00:01 PAIN LEVEL 0.0 {score} 03/21/2018 16:19:40 INTRAVASCULAR SYSTOLIC 126.0 mm[Hg] 03/21/2018 16:42:57 INTRAVASCULAR DIASTOLIC 66.0 mm[Hg] 03/21/2018 16:42:57 HEART BEAT 78.0 {beats}/min 03/21/2018 16:42:57 INTRAVASCULAR SYSTOLIC 124.0 mm[Hg] 03/22/2018 10:15:20 INTRAVASCULAR DIASTOLIC 60.0 mm[Hg] 03/22/2018 10:15:20 HEART BEAT 81.0 {beats}/min 03/22/2018 10:15:20 PAIN LEVEL 6.0 {score} 03/22/2018 10:54:08 PAIN LEVEL 0.0 {score} 03/22/2018 15:03:10 PAIN LEVEL 3.0 {score} 03/22/2018 16:44:28 INTRAVASCULAR SYSTOLIC 110.0 mm[Hg] 03/22/2018 16:51:03 INTRAVASCULAR DIASTOLIC 60.0 mm[Hg] 03/22/2018 16:51:03 HEART BEAT 73.0 {beats}/min 03/22/2018 16:51:03 PAIN LEVEL 0.0 {score} 03/23/2018 2:31:33 INTRAVASCULAR SYSTOLIC 113.0 mm[Hg] 03/23/2018 10:27:40 INTRAVASCULAR DIASTOLIC 57.0 mm[Hg] 03/23/2018 10:27:40 HEART BEAT 74.0 {beats}/min 03/23/2018 10:27:40 PAIN LEVEL 7.0 {score} 03/23/2018 11:48:05 PAIN LEVEL 1.0 {score} 03/23/2018 14:51:14 INTRAVASCULAR SYSTOLIC 115.0 mm[Hg] 03/23/2018 16:13:57 INTRAVASCULAR DIASTOLIC 64.0 mm[Hg] 03/23/2018 16:13:57 HEART BEAT 76.0 {beats}/min 03/23/2018 16:13:57 PAIN LEVEL 1.0 {score} 03/23/2018 17:16:36 PAIN LEVEL 5.0 {score} 03/23/2018 21:50:23 PAIN LEVEL 0.0 {score} 03/23/2018 23:02:00 INTRAVASCULAR SYSTOLIC 136.0 mm[Hg] 03/24/2018 9:36:07 INTRAVASCULAR DIASTOLIC 61.0 mm[Hg] 03/24/2018 9:36:07 HEART BEAT 83.0 {beats}/min 03/24/2018 9:36:07 PAIN LEVEL 6.0 {score} 03/24/2018 10:06:42 PAIN LEVEL 6.0 {score} 03/24/2018 16:35:07 PAIN LEVEL 0.0 {score} 03/24/2018 16:35:20 INTRAVASCULAR SYSTOLIC 125.0 mm[Hg] 03/24/2018 16:50:31 INTRAVASCULAR DIASTOLIC 60.0 mm[Hg] 03/24/2018 16:50:31 HEART BEAT 72.0 {beats}/min 03/24/2018 16:50:31 PAIN LEVEL 5.0 {score} 03/24/2018 21:52:58 PAIN LEVEL 0.0 {score} 03/25/2018 1:07:11 INTRAVASCULAR SYSTOLIC 126.0 mm[Hg] 03/25/2018 8:11:20 INTRAVASCULAR DIASTOLIC 81.0 mm[Hg] 03/25/2018 8:11:20 HEART BEAT 76.0 {beats}/min 03/25/2018 8:11:20 PAIN LEVEL 7.0 {score} 03/25/2018 12:48:54 PAIN LEVEL 1.0 {score} 03/25/2018 14:34:42 INTRAVASCULAR SYSTOLIC 112.0 mm[Hg] 03/25/2018 16:52:12 INTRAVASCULAR DIASTOLIC 60.0 mm[Hg] 03/25/2018 16:52:12 HEART BEAT 75.0 {beats}/min 03/25/2018 16:52:12 PAIN LEVEL 1.0 {score} 03/25/2018 17:07:52 PAIN LEVEL 4.0 {score} 03/25/2018 20:46:53 PAIN LEVEL 3.0 {score} 03/25/2018 21:37:44 PAIN LEVEL 5.0 {score} 03/26/2018 2:46:59 PAIN LEVEL 0.0 {score} 03/26/2018 3:55:00 PAIN LEVEL 6.0 {score} 03/26/2018 8:34:00 INTRAVASCULAR SYSTOLIC 110.0 mm[Hg] 03/26/2018 9:51:45 INTRAVASCULAR DIASTOLIC 58.0 mm[Hg] 03/26/2018 9:51:45 HEART BEAT 71.0 {beats}/min 03/26/2018 9:51:45 PAIN LEVEL 0.0 {score} 03/26/2018 13:39:53 PAIN LEVEL 0.0 {score} 03/26/2018 13:40:14 INTRAVASCULAR SYSTOLIC 135.0 mm[Hg] 03/26/2018 16:56:12 INTRAVASCULAR DIASTOLIC 64.0 mm[Hg] 03/26/2018 16:56:12 HEART BEAT 70.0 {beats}/min 03/26/2018 16:56:12 PAIN LEVEL 0.0 {score} 03/26/2018 18:28:18 PAIN LEVEL 7.0 {score} 03/27/2018 3:02:20 PAIN LEVEL 4.0 {score} 03/27/2018 11:04:05 PAIN LEVEL 1.0 {score} 03/27/2018 20:50:22 INTRAVASCULAR SYSTOLIC 112.0 mm[Hg] 03/28/2018 10:46:35 INTRAVASCULAR DIASTOLIC 60.0 mm[Hg] 03/28/2018 10:46:35 HEART BEAT 74.0 {beats}/min 03/28/2018 10:46:35 INTRAVASCULAR SYSTOLIC 121.0 mm[Hg] 03/28/2018 17:57:36 INTRAVASCULAR DIASTOLIC 60.0 mm[Hg] 03/28/2018 17:57:36 HEART BEAT 67.0 {beats}/min 03/28/2018 17:57:36 PAIN LEVEL 2.0 {score} 03/29/2018 10:22:59 PAIN LEVEL 7.0 {score} 03/29/2018 10:23:20 INTRAVASCULAR SYSTOLIC 131.0 mm[Hg] 03/29/2018 10:28:07 INTRAVASCULAR DIASTOLIC 64.0 mm[Hg] 03/29/2018 10:28:07 HEART BEAT 66.0 {beats}/min 03/29/2018 10:28:07 PAIN LEVEL 2.0 {score} 03/29/2018 14:07:22 PAIN LEVEL 2.0 {score} 03/29/2018 15:59:40 INTRAVASCULAR SYSTOLIC 128.0 mm[Hg] 03/29/2018 16:03:18 INTRAVASCULAR DIASTOLIC 67.0 mm[Hg] 03/29/2018 16:03:18 HEART BEAT 72.0 {beats}/min 03/29/2018 16:03:18 PAIN LEVEL 0.0 {score} 03/30/2018 2:51:55 PAIN LEVEL 5.0 {score} 03/30/2018 5:17:19 INTRAVASCULAR SYSTOLIC 119.0 mm[Hg] 03/30/2018 10:32:10 INTRAVASCULAR DIASTOLIC 57.0 mm[Hg] 03/30/2018 10:32:10 HEART BEAT 69.0 {beats}/min 03/30/2018 10:32:10 PAIN LEVEL 2.0 {score} 03/30/2018 12:59:02 PAIN LEVEL 0.0 {score} 03/30/2018 13:01:38 INTRAVASCULAR SYSTOLIC 131.0 mm[Hg] 03/30/2018 16:34:02 INTRAVASCULAR DIASTOLIC 66.0 mm[Hg] 03/30/2018 16:34:02 HEART BEAT 68.0 {beats}/min 03/30/2018 16:34:02 PAIN LEVEL 2.0 {score} 03/30/2018 19:15:31 PAIN LEVEL 7.0 {score} 03/30/2018 22:57:42 PAIN LEVEL 0.0 {score} 03/31/2018 0:51:00 PAIN LEVEL 6.0 {score} 03/31/2018 9:30:29 INTRAVASCULAR SYSTOLIC 132.0 mm[Hg] 03/31/2018 9:34:37 INTRAVASCULAR DIASTOLIC 69.0 mm[Hg] 03/31/2018 9:34:37 HEART BEAT 73.0 {beats}/min 03/31/2018 9:34:37 PAIN LEVEL 1.0 {score} 03/31/2018 14:58:34 Social History Smoking Status Start Date End Date Unknown if ever smoked 03/31/2018 19:38:14
--- OUTSIDE RECORDS SUMMARY | 2018-11-30 15:42 | XMS REPORT | Summary of Care ---
Author Author [facility] Address Unknown Phone Unavailable Encounter LORI Reyes(LALY) [id number] Date(s): 04/22/18 - 04/27/18 [facility] [address] [place] [address]- Discharge Disposition: [facility] Facility Attending Physician: Shaun Wilkerson MD Admitting Physician: Shaun Wilkerson MD Vital Signs 1 2 3 Most recent to oldest [Reference Range]: 157.48 cm (04/22/18 10:39 PM) 152.4 cm (04/22/18 6:17 PM) Height 98.3 DegF (04/27/18 8:50 PM) 98.5 DegF (04/27/18 3:15 PM) 97.6 DegF (04/27/18 11:37 AM) Temperature Oral [96.4-99.1 DegF] 150/76 mmHg *HI* (04/27/18 8:50 PM) 152/71 mmHg *HI* (04/27/18 3:15 PM) 129/76 mmHg (04/27/18 11:37 AM) Blood Pressure [90-140/60-90 mmHg] 18 BRMIN (04/27/18 3:15 PM) 18 BRMIN (04/27/18 11:37 AM) 18 BRMIN (04/27/18 7:54 AM) Respiratory Rate [14-20 BRMIN] 85 bpm (04/27/18 8:50 PM) 70 bpm (04/27/18 3:15 PM) 65 bpm (04/27/18 11:37 AM) Peripheral Pulse Rate [60-100 bpm] 59.545 kg (04/22/18 10:39 PM) 56.818 kg (04/22/18 6:17 PM) Weight 24.01 m2 (04/22/18 10:39 PM) 24.46 m2 (04/22/18 6:17 PM) Body Mass Index Problem List No data available for this section Allergies, Adverse Reactions, Alerts Substance Reaction Severity Status CODINE Active PCN Active traMADol Active Medications acetaminophen 650 mg, 2 tab, Route: PO, Drug form: TAB, Q4H, Dosing Weight 59.545, kg, PRN Ambika n 1-3/Temp > 100.4 F, Start date: 04/22/18 23:07:00 CDT, Duration: 30 day, Stop date: 05/22/18 23:06:00 CDT Notes: Do not exceed 4 gm/day. (Same as: Tylenol) Start Date: 04/22/18 Stop Date: 04/27/18 Status: Discontinued Artificial Tears 1 drp, Route: Each Affected Eye, QID, Drug form: SOLN, PRN Dry Eyes, Start date: 04/27/18 13:11:00 CDT, Duration: 30 day, Stop date: 05/27/18 13:10:00 CDT Start Date: 04/27/18 Stop Date: 04/27/18 Status: Discontinued cefdinir 300 mg, 1 cap, Route: PO, Drug form: CAP, [id number], Start date: 04/25/18 14:00:00 CDT, Duration: 14 day, Stop date: 05/09/18 2:00:00 CDT Notes: (Same As: Omnicef) Start Date: 04/25/18 Stop Date: 04/27/18 Status: Discontinued cefdinir 300 mg oral capsule 300 mg=1 cap, PO, [id number], X 7 day, # 14 cap, 0 Refill(s), Pharmacy: [facility] #[phone] Start Date: 04/27/18 Stop Date: 05/04/18 Status: Ordered cefTRIAXone 1 gm, Route: IVPB, ONCE, Dosing Weight 56.818, kg, Priority: STAT, Start date: 0 04/22/18 20:30:00 CDT, Stop date: 04/22/18 20:30:00 CDT, ABX Indication: Urinary Tract Infection Start Date: 04/22/18 Stop Date: 04/22/18 Status: Completed cyclobenzaprine 5 mg, 0.5 tab, Route: PO, Drug form: TAB, TID, Dosing Weight 59.545, kg, PRN Spa sm, Start date: 04/23/18 4:27:00 CDT, Duration: 30 day, Stop date: 05/23/18 4:26 :00 CDT Notes: (Same As: Flexeril) Start Date: 04/23/18 Stop Date: 04/27/18 Status: Discontinued DME Prescription See Instructions, MISC, ONCE, Use TSLO brace when upright., # 1 ea, 0 Refill(s) Start Date: 04/27/18 Status: Ordered DME Prescription See Instructions, MISC, ONCE, Repeat CBC and BMP in 5 days of discharge and disc uss with your PCP, # 1 ea, 0 Refill(s) Start Date: 04/27/18 Status: Ordered lidocaine topical patch (5% film) 1 patch, Route: TOP, Daily, Drug form: FILM, Start date: 04/23/18 9:00:00 CDT, D uration: 30 day, Stop date: 05/22/18 9:00:00 CDT Notes: Apply only once for up to 12 hours in f31-stbm period (12 hours on and 12 hours off).(Same as: Lidoderm)"Remove old patch before application of new patch" Start Date: 04/23/18 Stop Date: 04/27/18 Status: Discontinued Lopressor 12.5 mg, 0.5 tab, Route: PO, Drug form: TAB, Q12H, Dosing Weight 59.545, kg, Sta rt date: 04/23/18 9:00:00 CDT, Duration: 30 day, Stop date: 05/22/18 21:00:00 CD T Notes: (Same as: Lopressor) Start Date: 04/23/18 Stop Date: 04/27/18 Status: Discontinued Lovenox 40 mg, 0.4 mL, Route: SUB-Q, Drug form: INJ, [id number], Dosing Weight 59.545, kg, Start date: 04/23/18 9:00:00 CDT, Duration: 30 day, Stop date: 05/22/18 9:00:00 CDT Notes: (Same as: Lovenox) Start Date: 04/23/18 Stop Date: 04/27/18 Status: Discontinued Strabane 5/325 oral tablet 1 tab, Route: PO, Drug Form: TAB, Dosing Weight 59.545, kg, Q4H, PRN Pain Score 1-3, Start date: 04/23/18 15:42:00 CDT, Duration: 30 day, Stop date: 05/23/18 15 :41:00 CDT Notes: (Same as: Strabane 325/5) Do not exceed 4gm/day of acetaminophen. Start Date: 04/23/18 Stop Date: 04/27/18 Status: Discontinued ocular lubricant solution Each Affected Eye, QID, PRN Dry Eyes, 0 Refill(s) Start Date: 04/27/18 Status: Ordered ondansetron 4 mg, 2 mL, Route: IVP, Drug form: INJ, Q6H, Dosing Weight 59.545, kg, PRN Nause a & Vomiting, Start date: 04/22/18 23:07:00 CDT, Duration: 30 day, Stop date: 05/22/18 23:06:00 CDT Notes: (Same as: Zofran) MEDICATION WASTE Product Size: 4 mgProduct [place]: ___ mg Start Date: 04/22/18 Stop Date: 04/27/18 Status: Discontinued Protonix 40 mg, 1 tab, Route: PO, Drug form: ECTAB, Daily, Dosing Weight 59.545, kg, Star t date: 04/23/18 9:00:00 CDT, Duration: 30 day, Stop date: 05/22/18 9:00:00 CDT Notes: Tablet should not be chewed or crushed.(Same as: Protonix) Start Date: 04/23/18 Stop Date: 04/27/18 Status: Discontinued Rocephin + sterile water 10 mL 1 gm, Route: IVP, [id number], Dosing Weight 59.545, kg, Start date: 04/23/18 21:00: 00 CDT, Duration: 7 day, Stop date: 04/29/18 21:00:00 CDT, ABX Indication: Genit al Tract Infection Notes: (Same As: Rocephin).Use with 100 mL NS and infuse over 30 min MEDICA TION WASTE Product Size: 1000 mgProduct Wasted: ___ mg Start Date: 04/23/18 Stop Date: 04/25/18 Status: Discontinued Vantin 200 mg, Route: PO, Drug form: TAB, [id number], Dosing Weight 59.545, kg, Start date : 04/25/18 14:00:00 CDT, Duration: 14 day, Stop date: 05/09/18 2:00:00 CDT, ABX Indication: Urinary Tract Infection Start Date: 04/25/18 Stop Date: 04/25/18 Status: Deleted Results ELECTROLYTES 1 2 3 Most recent to oldest [Reference Range]: 140 mEq/L (04/26/18 4:11 AM) 142 mEq/L (04/25/18 7:21 AM) 145 mEq/L (04/24/18 6:08 AM) Sodium Lvl [135-145 mEq/L] 3.9 mEq/L (04/26/18 4:11 AM) 3.9 mEq/L (04/25/18 7:21 AM) 4.8 mEq/L (04/24/18 6:08 AM) Potassium Lvl [3.5-5.1 mEq/L] 108 mEq/L (04/26/18 4:11 AM) 110 mEq/L *HI* (04/25/18 7:21 AM) 110 mEq/L *HI* (04/24/18 6:08 AM) Chloride Lvl [95-109 mEq/L] 27 mEq/L (04/26/18 4:11 AM) 24 mEq/L (04/25/18 7:21 AM) 27 mEq/L (04/24/18 6:08 AM) CO2 [24-32 mEq/L] 8.9 mEq/L *LOW* (04/26/18 4:11 AM) 11.9 mEq/L (04/25/18 7:21 AM) 12.8 mEq/L (04/24/18 6:08 AM) AGAP [10.0-20.0 mEq/L] CHEM PANEL 1 2 3 Most recent to oldest [Reference Range]: 0.67 mg/dL (04/26/18 4:11 AM) 0.74 mg/dL (04/25/18 7:21 AM) 0.72 mg/dL (04/24/18 6:08 AM) Creatinine Lvl [0.50-1.40 mg/dL] 80 mL/min/1.73m2 1 *NA* (04/26/18 4:11 AM) 74 mL/min/1.73m2 2 *NA* (04/25/18 7:21 AM) 77 mL/min/1.73m2 3 *NA* (04/24/18 6:08 AM) eGFR 13 mg/dL (04/26/18 4:11 AM) 13 mg/dL (04/25/18 7:21 AM) 13 mg/dL (04/24/18 6:08 AM) BUN [7-22 mg/dL] 19 (04/26/18 4:11 AM) 18 (04/25/18 7:21 AM) 18 (04/24/18 6:08 AM) B/C Ratio [6-25] 80 mg/dL (04/26/18 4:11 AM) 83 mg/dL (04/25/18 7:21 AM) 77 mg/dL (04/24/18 6:08 AM) Glucose Lvl [70-99 mg/dL] 6.1 g/dL *LOW* (04/26/18 4:11 AM) 6.2 g/dL *LOW* (04/25/18 7:21 AM) 6.1 g/dL *LOW* (04/24/18 6:08 AM) Total Protein [6.4-8.4 g/dL] 3.0 g/dL *LOW* (04/26/18 4:11 AM) 2.8 g/dL *LOW* (04/25/18 7:21 AM) 3.1 g/dL *LOW* (04/24/18 6:08 AM) Albumin Lvl [3.5-5.0 g/dL] 3.1 g/dL (04/26/18 4:11 AM) 3.4 g/dL (04/25/18 7:21 AM) 3.0 g/dL (04/24/18 6:08 AM) Globulin [2.7-4.2 g/dL] 1.0 (04/26/18 4:11 AM) 0.8 (04/25/18 7:21 AM) 1.0 (04/24/18 6:08 AM) A/G Ratio [0.7-1.6] 8.7 mg/dL (04/26/18 4:11 AM) 8.7 mg/dL (04/25/18 7:21 AM) 8.9 mg/dL (04/24/18 6:08 AM) Calcium Lvl [8.5-10.5 mg/dL] 12 unit/L (04/26/18 4:11 AM) 13 unit/L (04/25/18 7:21 AM) 7 unit/L (04/24/18 6:08 AM) ALT [0-65 unit/L] 14 unit/L (04/26/18 4:11 AM) 13 unit/L (04/25/18 7:21 AM) 9 unit/L (04/24/18 6:08 AM) AST [0-37 unit/L] 104 unit/L (04/26/18 4:11 AM) 104 unit/L (04/25/18 7:21 AM) 101 unit/L (04/24/18 6:08 AM) Alk Phos [39-136 unit/L] 0.3 mg/dL (04/26/18 4:11 AM) 0.5 mg/dL (04/25/18 7:21 AM) 0.3 mg/dL (04/24/18 6:08 AM) Bili Total [0.2-1.3 mg/dL] 1.0 mMol/L (04/23/18 4:02 PM) Lactic Acid Lvl [0.5-2.2 mMol/L] <0.05 ng/mL (04/24/18 6:08 AM) Procalcitonin Lvl [0.00-0.10 ng/mL] 1Result Comment: The eGFR is calculated using [...] be mul tiplied by the estimated BMI. CARDIAC ENZYMES 1 2 3 Most recent to oldest [Reference Range]: <0.02 ng/mL (04/22/18 8:02 PM) Troponin-I [0.00-0.40 ng/mL] URINE AND STOOL 1 2 3 Most recent to oldest [Reference Range]: Clear (04/22/18 8:07 PM) UA Turbidity [Clear] Yellow *NA* (04/22/18 8:07 PM) UA Color [Yellow] 5.0 (04/22/18 8:07 PM) UA pH [5.0-8.0] 1.016 (04/22/18 8:07 PM) UA Spec Grav [<=1.030] Negative mg/dL *NA* (04/22/18 8:07 PM) UA Glucose [Negative mg/dL] Moderate *ABN* (04/22/18 8:07 PM) UA Blood [Negative] Negative mg/dL *NA* (04/22/18 8:07 PM) UA Ketones [Negative mg/dL] Negative mg/dL (04/22/18 8:07 PM) UA Protein [Negative mg/dL] <=1.0 mg/dL *NA* (04/22/18 8:07 PM) UA Urobilinogen [0.1-1.0 mg/dL] Negative *NA* (04/22/18 8:07 PM) UA Bili [Negative] Large *ABN* (04/22/18 8:07 PM) UA Leuk Est [Negative] Positive *ABN* (04/22/18 8:07 PM) UA Nitrite [Negative] 44 /HPF *HI* (04/22/18 8:07 PM) UA WBC [0-5 /HPF] 6 /HPF *HI* (04/22/18 8:07 PM) UA RBC [0-2 /HPF] Occasional /HPF *NA* (04/22/18 8:07 PM) UA Bacteria [None Seen /HPF] Occasional /LPF *NA* (04/22/18 8:07 PM) UA Sq Epi [Few /LPF] Few /LPF *NA* (04/22/18 8:07 PM) UA Mucus [None Seen /LPF] HEMATOLOGY 1 2 3 Most recent to oldest [Reference Range]: 5.2 K/CMM (04/26/18 4:11 AM) 5.3 K/CMM (04/25/18 7:21 AM) 5.5 K/CMM (04/24/18 6:08 AM) WBC [3.7-10.4 K/CMM] 4.23 M/CMM (04/26/18 4:11 AM) 4.25 M/CMM (04/25/18 7:21 AM) 4.21 M/CMM (04/24/18 6:08 AM) RBC [4.20-5.40 M/CMM] 12.9 g/dL (04/26/18 4:11 AM) 13.1 g/dL (04/25/18 7:21 AM) 12.5 g/dL (04/24/18 6:08 AM) Hgb [12.0-16.0 g/dL] 38.5 % (04/26/18 4:11 AM) 39.0 % (04/25/18 7:21 AM) 38.8 % (04/24/18 6:08 AM) Hct [36.0-48.0 %] 91.1 fL (04/26/18 4:11 AM) 91.8 fL (04/25/18 7:21 AM) 92.2 fL (04/24/18 6:08 AM) MCV [80.0-98.0 fL] 30.5 pg (04/26/18 4:11 AM) 30.8 pg (04/25/18 7:21 AM) 29.7 pg (04/24/18 6:08 AM) MCH [27.0-31.0 pg] 33.5 g/dL (04/26/18 4:11 AM) 33.5 g/dL (04/25/18 7:21 AM) 32.2 g/dL (04/24/18 6:08 AM) MCHC [32.0-36.0 g/dL] 16.2 % *HI* (04/26/18 4:11 AM) 16.8 % *HI* (04/25/18 7:21 AM) 16.8 % *HI* (04/24/18 6:08 AM) RDW [11.5-14.5 %] 8.4 fL (04/26/18 4:11 AM) 8.5 fL (04/25/18 7:21 AM) 8.8 fL (04/24/18 6:08 AM) MPV [7.4-10.4 fL] 184 K/CMM (04/26/18 4:11 AM) 187 K/CMM (04/25/18 7:21 AM) 211 K/CMM (04/24/18 6:08 AM) Platelet [133-450 K/CMM] 55.8 % (04/26/18 4:11 AM) 59.9 % (04/25/18 7:21 AM) 57.2 % (04/24/18 6:08 AM) Segs [45.0-75.0 %] 29.2 % (04/26/18 4:11 AM) 24.7 % (04/25/18 7:21 AM) 27.7 % (04/24/18 6:08 AM) Lymphocytes [20.0-40.0 %] 11.5 % (04/26/18 4:11 AM) 11.9 % (04/25/18 7:21 AM) 11.3 % (04/24/18 6:08 AM) Monocytes [2.0-12.0 %] 2.9 % (04/26/18 4:11 AM) 2.6 % (04/25/18 7:21 AM) 3.2 % (04/24/18 6:08 AM) Eosinophils [0.0-4.0 %] 0.6 % (04/26/18 4:11 AM) 0.9 % (04/25/18 7:21 AM) 0.6 % (04/24/18 6:08 AM) Basophils [0.0-1.0 %] 2.9 K/CMM (04/26/18 4:11 AM) 3.2 K/CMM (04/25/18 7:21 AM) 3.2 K/CMM (04/24/18 6:08 AM) Segs-Bands # [1.5-8.1 K/CMM] 1.5 K/CMM (04/26/18 4:11 AM) 1.3 K/CMM (04/25/18 7:21 AM) 1.5 K/CMM (04/24/18 6:08 AM) Lymphocytes # [1.0-5.5 K/CMM] 0.6 K/CMM (04/26/18 4:11 AM) 0.6 K/CMM (04/25/18 7:21 AM) 0.6 K/CMM (04/24/18 6:08 AM) Monocytes # [0.0-0.8 K/CMM] 0.1 K/CMM (04/26/18 4:11 AM) 0.1 K/CMM (04/25/18 7:21 AM) 0.2 K/CMM (04/24/18 6:08 AM) Eosinophils # [0.0-0.5 K/CMM] Immunizations Given and Recorded Vaccine Date Status Refusal Reason pneumococcal 13-valent vaccine 03/05/18 Given Procedures Procedure Date Related Diagnosis Body Site Status ORIF - Open reduction and internal fixation 03/05/18 Completed of fracture Social History Social History Type Response Alcohol Never Smoking Status Never smoker; Exposure to Tobacco Smoke None; Cigarette Smoking Last 365 Days No; Reg Smoking Cessation Counseling No entered on: 04/23/18 Assessment and Plan Extracted from: Title: Clinical Document Author: Augustina Calero NP Date: 04/27/18 CONSU PATIENT NAME: NICK CURRIE ATTENDING PHYSICIAN: ROYCE FATIMA CONSULTING PHYSICIAN: Augustina Gorman MAIL EXAMINER DATE OF CONSULT: 04/27/2018 REASON FOR CONSULT: back pain HISTORY OF PRESENT ILLNESS: Ms. Currie, an 87-year-old female, was seen today as a consultation. She has past medical history significant for osteoporosis, recent LEFT hip fracture secondary to fall, subsequent hip surgery in February and history of transient ischemic attacks who came to the emergency room on account of feeling weak and lethargic. She fell and broke her hip in 02/2018 and since then she has been having immobility issues. She denied fever, chills, rigors, nausea, vomiting. She denies further falls, however per chart, there was a possible fall in March after she completed therapy. She reports new RIGHT hip pain starting April 13, as well as low-thoracic back pain, which she reports has been ongoing longer than the new hip pain. She denies pain radiating down her legs. PAST MEDICAL HISTORY: 1. History of hip fracture in February. 2. History of osteoporosis. 3. Diverticulosis. 4. History of transient ischemic attacks. PAST SURGICAL HISTORY: History of left femoral open reduction and internal fixation. ALLERGIES: penicillin, tramadol, codeine. FAMILY HISTORY: non-contributory SOCIAL HISTORY: The patient denies alcohol, tobacco or illicit drugs. MEDICATIONS: Please see MAR REVIEW OF SYSTEMS: All systems are reviewed. Pertinent positives and negatives as per HPI. PHYSICAL EXAMINATION: GENERAL: Lying in bed in no acute distress. She is alert, oriented to time, place and person. NEUROLOGIC: The patient is alert, oriented to time, place and person. CN II - XII grossly intact. Sensation intact. Reflexes 2+. IPSQATEHLG R4+4+4+4+4+ L4+4+4+4+4+ LABORATORY DATA: Hct: 38.5 % (04/26/18 04:11:00) Hgb: 12.9 g/dL (04/26/18 04:11:00) MCH: 30.5 pg (04/26/18 04:11:00) MCHC: 33.5 g/dL (04/26/18 04:11:00) MCV: 91.1 fL (04/26/18 04:11:00) MPV: 8.4 fL (04/26/18 04:11:00) Platelet: 184 K/CMM (04/26/18 04:11:00) RBC: 4.23 M/CMM (04/26/18 04:11:00) RDW: 16.2 % High (04/26/18 04:11:00) WBC: 5.2 K/CMM (04/26/18 04:11:00) Basophils: 0.6 % (04/26/18 04:11:00) Eosinophils: 2.9 % (04/26/18 04:11:00) Eosinophils #: 0.1 K/CMM (04/26/18 04:11:00) Lymphocytes: 29.2 % (04/26/18 04:11:00) Lymphocytes #: 1.5 K/CMM (04/26/18 04:11:00) Monocytes: 11.5 % (04/26/18 04:11:00) Monocytes #: 0.6 K/CMM (04/26/18 04:11:00) Segs: 55.8 % (04/26/18 04:11:00) Segs-Bands #: 2.9 K/CMM (04/26/18 04:11:00) CO2: 27 mEq/L (04/26/18 04:11:00) Chloride Lvl: 108 mEq/L (04/26/18 04:11:00) Sodium Lvl: 140 mEq/L (04/26/18 04:11:00) Glucose Lvl: 80 mg/dL (04/26/18 04:11:00) Calcium Lvl: 8.7 mg/dL (04/26/18 04:11:00) Potassium Lvl: 3.9 mEq/L (04/26/18 04:11:00) BUN: 13 mg/dL (04/26/18 04:11:00) AGAP: 8.9 mEq/L Low (04/26/18 04:11:00) Creatinine Lvl: 0.67 mg/dL (04/26/18 04:11:00) IMAGING AND DIAGNOSTIC STUDIES: The pelvis x-ray done: Evidence of previous open reduction internal fixation of left hip fracture. Otherwise, normal exam. Lumbar xray: There is a new 50% compression fracture [...] abnormal motion is present. IMPRESSION: 1. New T12 compression fracture 2. multiple chronic compression fracture/endplate deformities in low thoracic and lumbar spine 3. new RIGHT hip pain Ms. Currie, an 87-year-old female, was seen today as a consultation regarding her back pain. On lumbar xrays we can see evidence of a new T12 compression fracture, approximately 50% compressed, as well as chronic, stable fractures and endplate deformities at T11, L1, L2, L3, and L5. On exam she displays no evidence of weakness or radiculopathy. At this time we recommend a CT lumbar to further evaluate this T12 compression fracture. We will also ask for her to be placed in a TLSO brace. We will continue to follow after further imaging completed. PLAN: 1. TLSO brace 2. CT lumbar 3. F/u in clinic at [phone] in 1-2 weeks. Augustina Calero APRN
[2018-11-30 16:27] LABS: BASOPHILS # (AUTO) 0.1 (0.0-0.1); BASOPHILS % 0.6 % (0.0-1.0); EOSINOPHILS # (AUTO) 0.2 (0.0-0.4); EOSINOPHILS % 1.8 % (0.0-6.0); HEMATOCRIT 40.5 % (34.2-44.1); HEMOGLOBIN 13.3 g/dL (12.0-16.0); LYMPHOCYTES # (AUTO) 2.9 (1.0-3.2); LYMPHOCYTES % 34.2 % (18.0-39.1); MEAN CORPUSCULAR HEMOGLOBIN 31.3 pg (28-32); MEAN CORPUSCULAR HGB CONC 32.8 g/dL (31-35); MEAN CORPUSCULAR VOLUME 95.3 fL (81-99); MONOCYTES % 12.2 % (4.4-11.3); NEUTROPHILS # (AUTO) 4.3 (2.1-6.9); PLATELET COUNT 233 x10e3/uL (140-360); RED BLOOD COUNT 4.25 x10e6/uL (3.6-5.1); RED CELL DISTRIBUTION WIDTH 13.6 % (11.7-14.4)
[2018-11-30 16:37] LABS: INR 0.9
[2018-11-30 16:50] LABS: ALANINE AMINOTRANSFERASE 9 IU/L (0-55); ALBUMIN 3.6 g/dL (3.5-5.0); ALKALINE PHOSPHATASE 70 IU/L (40-150); ANION GAP 12.3 mmol/L (8-16); BLOOD UREA NITROGEN 20 mg/dL (7-26); BUN/CREATININE RATIO 23 (6-25); CALCIUM 9.5 mg/dL (8.4-10.2); CARBON DIOXIDE 25 mmol/L (22-29); CHLORIDE 102 mmol/L (98-107); CREATINE KINASE 29 IU/L (29-168); CREATININE, SERUM 0.88 mg/dL (0.57-1.11); EST GLOMERULAR FILTRATION RATE > 60 ML/MIN (60-); GLUCOSE 88 mg/dL (74-118); POTASSIUM 4.3 mmol/L (3.5-5.1); SODIUM 135 mmol/L (136-145)
[2018-11-30 17:44] LABS: CLARITY,URINE SL CLOUDY (CLEAR); COLOR,URINE YELLOW (YELLOW); LEUKOCYTE ESTERASE ,URINE TRACE (NEGATIVE); NITRITE,URINE NEGATIVE (NEGATIVE)
[2018-11-30 17:45] LABS: BILIRUBIN,URINE NEGATIVE (NEGATIVE); KETONES,URINE NEGATIVE (NEGATIVE); PROTEIN,URINE DIPSTICK NEGATIVE (NEGATIVE); URINE UROBILINOGEN 0.2 mg/dL (0.2 - 1)
[2018-11-30 17:56] LABS: BACTERIA,URINE MODERATE /HPF; EPITHELIAL CELLS,URINE FEW /LPF; WBC,URINE (MAN) 0-5 /HPF (0-5)
--- NOTE | 2018-11-30 18:12 | Diagnostic Imaging Report ---
Frontal and lateral views of the chest. HISTORY: Chest pain COMPARISON: Chest radiograph July 29, 2011. DISCUSSION: Lungs: The lungs are mildly hyperinflated. A nonspecific 4 mm density projects at the periphery of the right lung base. No evidence of a consolidative pneumonia or pulmonary alveolar edema. Pleura: No pleural effusion or pneumothorax. Heart and mediastinum: The cardiomediastinal silhouette appears unremarkable. Bones and soft tissues: Right convex curvature of the thoracic spine. Diffusely decreased mineralization of the osseous structures limits bone detail. Accentuation of the thoracic kyphosis, most notably near the thoracolumbar junction. Multilevel age-indeterminate anterior wedge compression fracture deformities, most notably a vertebral body near the thoracal lumbar junction with approximately 60% loss of anterior vertebral body height IMPRESSION: 1. No pulmonary edema or pneumonia. 2. Diffuse osseous demineralization with multilevel age-indeterminate anterior wedge compression fracture deformities, most notably a vertebral body near the thoracal lumbar junction. 3. Indeterminate 4 mm nodular density projects at the periphery of the right lung base. Recommend a follow-up CT of the chest without contrast which may be performed on a nonemergent outpatient basis for further characterization. Signed by: Dr. Mike Stover D.O., M.M.M. on 11/30/2018 6:09 PM
--- NOTE | 2018-11-30 21:40 | Diagnostic Imaging Report ---
EXAMINATION: Head CT without contrast. HISTORY:Dizziness. COMPARISON:Report of CT brain from 09/21/2015. TECHNIQUE: Multidetector axial images were obtained from the foramen magnum to the vertex without contrast. The images were reconstructed using brain and bone algorithms. Thin section brain images were reformatted into coronal and sagittal planes. Dose modulation, iterative reconstruction, and/or weight based adjustment of the mA/kV was utilized to reduce the radiation dose to as low as reasonably achievable. Intravenous contrast: None IMAGE QUALITY: Acceptable. FINDINGS: Skull/scalp: No lytic or blastic. lesions. No surgical changes. Parenchyma: Nonspecific bilateral frontoparietal patchy white matter hypodensity are likely related to small vessel ischemic changes. 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 No acute hemorrhage, mass or acute major vascular territorial infarct. Arteries: No density suggestive of thrombosis. Dural sinuses: No abnormal density suggestive of thrombosis. Ventricles: Mild compensated dilatation due to volume loss. No acute hydrocephalus. Extra-axial spaces: No abnormal density. Brain volume: Generalized age-related cerebral volume loss. Craniocervical junction: No mass, Chiari malformation, or basilar invagination. Sella: No mass. Paranasal/mastoid sinuses: Mild mucosal thickening in right maxillary and right sphenoid sinus. IMPRESSION: No acute intracranial abnormality, particularly no acute hemorrhage, mass or acute major vascular territorial infarct. Mild supratentorial white matter microvascular ischemic changes and old vascular insult in right cerebellar hemisphere. Generalized age-related cerebral volume loss. Signed by: Dr. Krupa Baker M.D. on 11/30/2018 9:36 PM
[2018-11-30] MEDS ORDERED: SODIUM CHLORIDE FLUSH 10 ML SYR INJ PRN (23:00)
[2018-12-01] MEDS ORDERED: OMEPRAZOLE40 MG PO (00:01)
[2018-12-01 01:19] LABS: CREATINE KINASE MB 0.7 ng/mL (0-5.0)
[2018-12-01 05:21] LABS: CREATINE KINASE MB 0.6 ng/mL (0-5.0)
[2018-12-01 05:45] LABS: CHOL/HDL RATIO 2.7 (3.0-3.6)
--- NOTE | 2018-12-01 07:08 | NUR ---
REPORT TO CYRUS SCHMITT
--- NOTE | 2018-12-01 07:08 | NUR ---
RECEIVED REPORT FROM SAMINA BRIDGES FOR CONTINUATION OF CARE
--- NOTE | 2018-12-01 09:30 | NUR ---
ECHO IN PROGRESS AT BEDSIDE
[2018-12-01] MEDS: ASPIRIN 81 MG ENTERIC COATED PO SCH (09:37)
--- NOTE | 2018-12-01 10:30 | NUR ---
ASSISTED PT TO THE RESTROOM VIA W/C
--- NOTE | 2018-12-01 11:00 | NUR ---
REPORT GIVEN TO BACILIO
--- NOTE | 2018-12-01 11:05 | NUR ---
RECEIVED REPORT FROM CYRUS SCHMITT FOR CONTINUITY OF CARE
--- NOTE | 2018-12-01 11:15 | NUR ---
ECHOVASCULAR AT BEDSIDE FOR DIAGNOSTIC IMAGING STUDIES
[2018-12-01] MEDS: ACETAMINOPHEN 325 MG TAB PO PRN (13:00)
--- NOTE | 2018-12-01 13:20 | NUR ---
PT ASSISTED TO BATHROOM VIA W/C, AMBULATES SHORT DISTANCES WITH ASSIST, DENIES CP/SOB, NO DISTRESS NOTED AT THIS TIME.
--- NOTE | 2018-12-01 16:00 | NUR ---
PT ASSISTED TO RESTROOM VIA W/C, DENIES CP AND SOB, NO DISTRESS NOTED AT THIS TIME.
--- NOTE | 2018-12-01 17:30 | NUR ---
DR. CASILLAS AT BEDSIDE FOR PATIENT EVAL- CARDIOLOGY CONSULT.
--- NOTE | 2018-12-01 18:50 | NUR ---
PT PLACED ON TELE, ASSISTED TO RESTROOM VIA W/C AT THIS TIME.
--- NOTE | 2018-12-01 19:00 | NUR ---
[address] HERE AT BEDSIDE AT THIS TIME.
[2018-12-01 19:59] VITALS: BP 138/65
[2018-12-01 20:00] VITALS: BP 138/65
[2018-12-01 20:30] VITALS: BP 138/65
[2018-12-01] MEDS: CEFTRIAXONE SOD 1 GM/NS 50 ML 50 ML IV SCH (21:02)
[2018-12-01] MEDS ORDERED: SODIUM CHLORIDE 0.9% 250ML 250 ML ONE (21:11)
[2018-12-02] VITALS (7 sets, daily range): BP systolic 114–158; BP diastolic 57–68
--- NOTE | 2018-12-02 00:47 | Consultation ---
DATE OF CONSULTATION: December 01, 2018 CARDIOLOGY CONSULTATION Thank you so much for asking me to see this nice lady in consultation. Mrs. Rodrigez is a very elderly 88-year-old woman who was brought to the emergency room by her family with a complaint of chest discomfort. HISTORY OF PRESENT ILLNESS: Patient reports she woke on Thursday of November 30, 2018, with a complaint of discomfort in both shoulders that was worse on trying to turn over in bed and then a bit later some left precordial chest discomfort. She initially refused to be transported to the hospital, but when her family came home from work they decided to bring her in themselves as she was not completely resolved. PAST MEDICAL HISTORY: Significant for multiple hospitalizations at [facility]. In August 2016, she had a colon polyp and diverticulosis with colonoscopy. June 2016, she was reported to have atrial fibrillation, but all the telemetry strips actually showed sinus rhythm, was given Eliquis evidently for a while. Hospitalized at [facility] again in September 2017 for gastroenteritis. She tells me that in February 2018 she was hospitalized at [facility] for left hip fracture and repair. She reports history of previous stroke, arthritis, had remote appendectomy, cholecystectomy, and foot surgery. PERSONAL SOCIAL HISTORY: She lives with her daughter. PHYSICAL EXAMINATION GENERAL: At this time shows an elderly white woman who is alert, responsive, and comfortable. VITAL SIGNS: Afebrile, normotensive. HEAD, EYES, EARS, NOSE AND THROAT: Unremarkable. NECK: No jugular venous distention. No bruits. THORAX: Chest wall is mildly tender to palpation in the left precordial region. HEART SOUNDS: S1 and S2 are equal. No murmurs. LUNGS: Clear. ABDOMEN: Normal bowel sounds. EXTREMITIES: Healed left hip incision is still some tender to palpation. She reports that she walks with a walker. LABORATORY STUDIES: Troponin is normal x3. Urinalysis shows 2+ blood, trace leukocyte esterase, 6 to 10 red cells, and 0 to 5 white cells. Chest x-ray suggests vertebral compression fractures. CAT scan of the head shows age-related changes. Lipid profile: Cholesterol 172, HDL 63, LDL 91, and triglycerides 89. ASSESSMENT: Chest discomfort, etiology not clear, maybe some element of musculoskeletal pain. PLAN: We will plan to check [employer] in the morning to assess for any significant underlying coronary disease or risk of myocardial infarction. Thank you for asking me to see her in consultation. Job#: [id number]
--- NOTE | 2018-12-02 06:55 | NUR ---
rounded with operation shift supervisor nurse, patient aware of change. Patient in no distress. Call holloway within reach and bed in lowest position.
[2018-12-02 07:26] LABS: BASOPHILS % 0.5 % (0.0-1.0); EOSINOPHILS # (AUTO) 0.1 (0.0-0.4); EOSINOPHILS % 2.5 % (0.0-6.0); HEMATOCRIT 36.9 % (34.2-44.1); HEMOGLOBIN 12.3 g/dL (12.0-16.0); LYMPHOCYTES # (AUTO) 1.7 (1.0-3.2); LYMPHOCYTES % 29.7 % (18.0-39.1); MEAN CORPUSCULAR HEMOGLOBIN 31.1 pg (28-32); MEAN CORPUSCULAR HGB CONC 33.3 g/dL (31-35); MEAN CORPUSCULAR VOLUME 93.2 fL (81-99); MONOCYTES # (AUTO) 0.7 (0.2-0.8); MONOCYTES % 11.5 % (4.4-11.3); NEUTROPHILS # (AUTO) 3.1 (2.1-6.9); NEUTROPHILS % 55.4 % (38.7-80.0); PLATELET COUNT 204 x10e3/uL (140-360); RED BLOOD COUNT 3.96 x10e6/uL (3.6-5.1); RED CELL DISTRIBUTION WIDTH 13.6 % (11.7-14.4)
[2018-12-02 07:44] LABS: ANION GAP 10.6 mmol/L (8-16); BLOOD UREA NITROGEN 16 mg/dL (7-26); BUN/CREATININE RATIO 21 (6-25); CALCIUM 9.2 mg/dL (8.4-10.2); CARBON DIOXIDE 27 mmol/L (22-29); CHLORIDE 107 mmol/L (98-107); CREATININE, SERUM 0.76 mg/dL (0.57-1.11); EST GLOMERULAR FILTRATION RATE > 60 ML/MIN (60-); GLUCOSE 84 mg/dL (74-118); MAGNESIUM 2.2 MG/DL (1.3-2.1); POTASSIUM 4.6 mmol/L (3.5-5.1); SODIUM 140 mmol/L (136-145)
[2018-12-02 07:54] LABS: B-TYPE NATRIURETIC PEPTIDE2 76.7 pg/mL (0-100)
[2018-12-02 08:12] LABS: THYROID STIMULATING HORMONE 0.946 uIU/mL (0.350-4.940)
[2018-12-02] MEDS ORDERED: HYDRALAZINE HCL 20 MG/ML VIAL IV PRN (09:15)
--- NOTE | 2018-12-02 09:32 | NUR ---
patient escorted from floor on wheelchair to nuclear medicine for stress testing at this time. Patient alert and oriented and in no distress.
[2018-12-02] MEDS ORDERED: REGADENOSON 0.4 MG/5 ML SYR IV ONE (10:05)
--- NOTE | 2018-12-02 10:40 | NUR ---
SOCIAL WORK INITIAL ASSESSMENT Food Beverage Manager to bedside to discuss plan of care with patient/family. CM/SW role and care transitions discussed. Anticipated discharge plan discussed along with duration of care. CM/SW discussed patients right to make decisions in care. CM/SW work hours given. Patient lives: IN APARTMENT WITH DAUGHTER Admit/Transfer: VIA ED FROM HOME POA/Emergency contact: JMMary AQUINO [phone] Current/Previous Home Health: NONE PCP/Follow-up Care: SUDARSHAN Current/Previous DME: [facility]ST[facility] Other Services: NONE Employment Status: RETIRED Areas of Concerns: NONE Referral Needs: NONE Education Needs: NONE IMM/GIRALDO given and signed (if applicable): GIRALDO Goal for discharge: RETURN HOME WITH FAMILY CM/SW left business card at the bedside with contact information. Name and number was also written on the patients whiteboard. Patient verbalized understanding of discussion. CM will follow-up with ongoing discharge and transition of care needs.
[2018-12-02] MEDS: ONDANSETRON HCL INJ 2MG/ML 2ML 2 MG/ML VIAL IV PRN ×2 (11:50→18:14)
--- NOTE | 2018-12-02 12:25 | NUR ---
patient returned to floor in wheelchair alert and oriented and in stable condition.
[2018-12-02] MEDS: ASPIRIN 81 MG ENTERIC COATED PO SCH (15:02)
[2018-12-02] MEDS: ACETAMINOPHEN 325 MG TAB PO PRN (15:04)
--- NOTE | 2018-12-02 18:45 | NUR ---
walking rounds made with night shift supervisor nurse, patient aware of change. Patient in no distress and call holloway within reach.
--- NOTE | 2018-12-02 19:00 | NUR ---
REPORT RECEIVED FROM OFF GOING NURSE, PT RESTING BED ALERT AND ORIENTED, NO DISTRESS NOTED, DENIES NEEDS, TELEMETRY NOTED, CALL LIGHT IN REACH, INSTRUCTED TO CALL WITH NEEDS
[2018-12-02] MEDS: CEFTRIAXONE SOD 1 GM/NS 50 ML 50 ML IV SCH (20:00)
--- NOTE | 2018-12-02 20:07 | Cardiology Report ---
DATE OF STUDY: December 02, 2018 PROCEDURE: Lexiscan Myoview. ATTENDING PHYSICIAN: Dr. Karen Alonso Patient had resting perfusion images after an injection of 11 mCi of technetium-99m Myoview. Later due to inability to exercise, she was given 0.4 mg of Lexiscan intravenously and shortly afterwards 28 mCi of technetium-99m Myoview. Perfusion images were taken by rotational tomography. Comparison of resting and Lexiscan stress images shows no evidence of any perfusion defect. Additionally, gated wall motion images were obtained and calculated ejection fraction is hyperdynamic at 91% although the real ejection fraction may be lower. FINAL IMPRESSION: 1. Normal Lexiscan Myoview for perfusion. 2. Normal to hyperdynamic left ventricular function, calculated ejection fraction 91%. Job#: [id number] cc:KAREN ALONSO MD
[2018-12-03] VITALS: BP 134/63
[2018-12-03 03:24] LABS: BASOPHILS % 0.7 % (0.0-1.0); EOSINOPHILS # (AUTO) 0.2 (0.0-0.4); EOSINOPHILS % 3.1 % (0.0-6.0); HEMATOCRIT 35.5 % (34.2-44.1); HEMOGLOBIN 12.4 g/dL (12.0-16.0); LYMPHOCYTES # (AUTO) 1.8 (1.0-3.2); LYMPHOCYTES % 30.3 % (18.0-39.1); MEAN CORPUSCULAR HEMOGLOBIN 31.5 pg (28-32); MEAN CORPUSCULAR HGB CONC 34.9 g/dL (31-35); MEAN CORPUSCULAR VOLUME 90.1 fL (81-99); MONOCYTES # (AUTO) 0.7 (0.2-0.8); NEUTROPHILS # (AUTO) 3.3 (2.1-6.9); NEUTROPHILS % 53.6 % (38.7-80.0); PLATELET COUNT 187 x10e3/uL (140-360); RED BLOOD COUNT 3.94 x10e6/uL (3.6-5.1); RED CELL DISTRIBUTION WIDTH 13.3 % (11.7-14.4)
[2018-12-03 03:45] LABS: ANION GAP 11.2 mmol/L (8-16); BLOOD UREA NITROGEN 17 mg/dL (7-26); BUN/CREATININE RATIO 22 (6-25); CALCIUM 9.1 mg/dL (8.4-10.2); CARBON DIOXIDE 24 mmol/L (22-29); CHLORIDE 107 mmol/L (98-107); CREATININE, SERUM 0.78 mg/dL (0.57-1.11); EST GLOMERULAR FILTRATION RATE > 60 ML/MIN (60-); GLUCOSE 83 mg/dL (74-118); MAGNESIUM 2.3 MG/DL (1.3-2.1); POTASSIUM 4.2 mmol/L (3.5-5.1); SODIUM 138 mmol/L (136-145)
[2018-12-03 04:00] VITALS: BP 115/55
--- NOTE | 2018-12-03 07:02 | NUR ---
Walking rounds done and report received. Patient denies any CP at this time. POC discussed. Patient was instructed to call for assistance as needed and verbalized understanding. Bed in lowest position, locked and call holloway within reach.
[2018-12-03 08:00] VITALS: BP 124/56
[2018-12-03] MEDS: ASPIRIN 81 MG ENTERIC COATED PO SCH (08:05)
[2018-12-03] MEDS ORDERED: PANTOPRAZOLE SOD 40 MG TABEC PO SCH (09:00)
--- NOTE | 2018-12-03 10:27 | History and Physical ---
CHIEF COMPLAINT: Chest discomfort. HISTORY OF PRESENT ILLNESS: The patient is an 88-year-old woman. She has a history of a prior hip fracture and some chronic pain in her left leg. She came into the hospital complaining of discomfort in both shoulders that is worse when moving. She also noted some pain on the left side of her chest anteriorly. She did not complain of cough or difficulty breathing. PAST SURGICAL HISTORY 1. Status post appendectomy. 2. Status post cholecystectomy. 3. Status post foot surgery. PAST MEDICAL HISTORY 1. Prior cerebrovascular accident. 2. Arthritis. 3. Chronic pain from a fractured hip. SOCIAL HISTORY: The patient lives with her daughter. She is not an active smoker or drinker. ALLERGIES: NO KNOWN DRUG ALLERGIES. FAMILY HISTORY: Noncontributory. REVIEW OF SYSTEMS: Negative for fever or headache. She does have some anterior chest pain, but no dyspnea or cough. She has no nausea or vomiting. She has some chronic left leg pain. PHYSICAL EXAMINATION VITALS: The patient is afebrile. The blood pressure is 124/56 and the pulse is 58. HEENT: Shows no facial swelling or erythema. CARDIAC: Reveals regular rate and rhythm with a normal S1 and S2. LUNGS: Auscultation of the lungs reveals clear breath sounds bilaterally. There is no wheezing. ABDOMEN: Soft and nontender. There is no rebound or guarding. EXTREMITIES: Shows no leg edema or calf tenderness. There is no cyanosis or clubbing. SKIN: Shows no rashes. NEUROLOGIC: Shows no focal abnormalities. IMPRESSION 1. Atypical chest pain. 2. Chronic leg pain secondary to prior hip fracture. 3. Gastroesophageal reflux. 4. Urinary tract infection. 5. Osteoporosis. 6. Prior compression fractures. PLAN 1. Complete cardiac workup. 2. Physical therapy. 3. Arrangements for safe home care. Job#: [id number] SD
[2018-12-03 12:00] VITALS: BP 124/56
[2018-12-03 12:16] VITALS: BP 111/55
[2018-12-03 16:36] VITALS: BP 131/62
[2018-12-03] MEDS ORDERED: ASPIR-LOW81 MG PO (16:54)
--- NOTE | 2018-12-03 18:00 | Discharge Summary ---
ADMISSION DIAGNOSES 1. Chest pain. 2. Urinary tract infection. 3. Gastroesophageal reflux disease. 4. Dizziness. DISCHARGE DIAGNOSES 1. Chest pain. 2. Gastroesophageal reflux disease. 3. Dizziness. 4. Rule out urinary tract infection. HISTORY: Patient has a history of GERD, osteoarthritis, history of CVA x2. SURGICAL HISTORY: Complete hysterectomy, left arm surgery, left foot surgery, left hip surgery. SOCIAL HISTORY: Patient denies tobacco and alcohol use. HOSPITAL COURSE: An 88-year-old female complains of stomach issues who presents after waking up with shoulder pain, weakness, and chest pain. Patient's daughter reports the patient had increased heart rate and was shacking. She also complained of shortness of breath and dizziness in the ER. On admission, patient had troponin negative x3. Cardiology was consulted who ordered a stress test. Per the stress test, the EF was found to be 91% and the stress test was negative. Per cardiology, patient can discharge home. UA appeared urine infection, but the urine culture came back negative x24 hours. Patient is asymptomatic and white blood cell count is normal. The patient will discharge home with family. She has been cleared by physical therapy and consult. Patient will resume home medicine plus baby aspirin daily. Patient understands discharge instructions and agreed to plan. Vital signs stable, patient afebrile. DICTATED BY CORTES SMITH NP KAREN SHEPPARD MD Job#: [id number] [facility]
--- NOTE | 2018-12-03 18:06 | NUR ---
Patient discharged home with written instructions. she verbalized understanding. Daughter is providing ride home. IV dc'd, cath intact and small dressing applied.
== END 2018-12-03 18:08 | disposition home or self-care (01) ==
LOC: ER 15:37 → ERHOLD 22:50 → INTOOBSV 22:50 → IMCU 12-01 19:50
PROVIDERS: ADMIT Internal Medicine; ATTEND Internal Medicine
DX: R07.89 Other chest pain (principal); I10 Essential (primary) hypertension; K21.9 Gastro-esophageal reflux disease without esophagitis; M19.90 Unspecified osteoarthritis, unspecified site; K57.92 Diverticulitis of intestine, part unspecified, without perforation or abscess without bleeding; Z84.89 Family history of other specified conditions; R94.31 Abnormal electrocardiogram [ECG] [EKG]; N39.0 Urinary tract infection, site not specified; E83.41 Hypermagnesemia; M25.512 Pain in left shoulder; M25.511 Pain in right shoulder; M48.54XA Collapsed vertebra, not elsewhere classified, thoracic region, initial encounter for fracture
CPT/HCPCS: 36415 ×4; 70450; 71046; 78452; 80048 ×2; 80053; 80061; 81001; 82550 ×2; 82553 ×2; 83036; 83735 ×2; 83880; 84439; 84443; 84484 ×2; 85025 ×3; 85610; 85730; 87086; 93005; 93017; 93306; 93880; 97116; 97161; 99285; A9502; G0378 ×4; J0696 ×2; J2405; J2785; J7050; S0164

== ENCOUNTER 2019-01-12 13:45 | Emergency (ER) | payer MEDICARE ==
[~2019-01-12] VITALS: Ht 157.5 cm; Wt 56.7 kg
[~2019-01-12 13:45] MED LIST changes: +ASPIR-LOW81 MG PO; +OMEPRAZOLE40 MG PO
--- OUTSIDE RECORDS SUMMARY | 2019-01-12 13:49 | XMS REPORT | Continuity of Care Document ---
Author Author [facility] Interface Address Unknown Phone Unavailable Problems Problem Status Onset Date Classification Date Reported Comments Source M62.81 MUSCLE WEAKNESS 04/28/2018 [place] 05/14/2018 [place] [facility] [facility] [place] [employer] [place] [facility] Walking disability 04/27/2018 Diagnosis 05/14/2018 SNF: [facility] [employer] [place] [facility] S22.089S UNSPECIFIED FRACTURE OF T11-T12 VERTEBRA, SEQUELA 04/27/2018 Diagnosis 05/14/2018 SNF: [facility] [employer] [place] [facility] G89.29 OTHER CHRONIC PAIN 04/27/2018 Diagnosis 05/14/2018 SNF: [facility] [employer] [place] [facility] Z91.81 HISTORY OF FALLING 04/27/2018 Diagnosis 05/14/2018 SNF: [facility] [employer] [place] [facility] R53.1 WEAKNESS 04/27/2018 Diagnosis 05/14/2018 [place] [facility] [place] [employer] [place] [facility] ACUTE UTI,PHYSICAL DECONDITIONING,WEAKNE Active 04/22/2018 [facility] pain of right hip 04/13/2018 04/16/2018 [facility] BACK PAIN Active 04/13/2018 [facility] S72.92XS UNSPECIFIED FRACTURE OF LEFT FEMUR, SEQUELA 03/11/2018 Diagnosis 05/14/2018 SNF: [facility] [employer] [place] [facility] W19.XXXS UNSPECIFIED FALL, SEQUELA 03/11/2018 Diagnosis 05/14/2018 SNF: [facility] [employer] [place] [facility] I10 ESSENTIAL HYPERTENSION 03/11/2018 Diagnosis 05/14/2018 SNF: [facility] [employer] [place] [facility] 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 03/11/2018 Diagnosis 05/14/2018 SNF: [facility] [employer] [place] [facility] 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 03/11/2018 Diagnosis 05/14/2018 SNF: [facility] [employer] [place] [facility] INTRTROCHANTERIC FRACTURE OF FEMUR Active 03/04/2018 [facility] FX HIP Active 03/04/2018 [facility] R91.8 - OTHER NONSPECIFIC ABNORMAL FIN Active 04/25/2016 RADHA Santiago D64.9 - "ANEMIA, UNSPECIFIED" Active 04/21/2016 RADHA Santiago DISPLACED INTERTROCHANTERIC FRACTURE OF Active [facility] URINARY TRACT INFECTION, SITE NOT SPECIF Active [facility] OTHER MALAISE Active [facility] WEAKNESS Active [facility] Medications Medication Details Route Status Patient Instructions Ordering Provider Order Date Source Ibuprofen Tablet 800 MG Give 1 tablet by mouth every 8 hours as needed for Pain Oral Active 04/29/2018 SNF: [facility] Cipro Tablet 500 MG Give 1 tablet by mouth two times a day for UTI for 10 Days Oral Active 04/28/2018 SNF: [facility] Tylenol with Codeine #3 Tablet 300-30 MG Give 1 tablet by mouth every 8 hours as needed for PAIN Oral Active 04/28/2018 SNF: [facility] Protonix Tablet Delayed Release 40 MG Give 1 tablet by mouth one time a day for gerd Oral Active 04/28/2018 SNF: [facility] Metoprolol Tartrate Tablet Give 12.5 mg by mouth two times a day for HTN Hold for SBP less than 110, HR less than 60 Oral Active 04/28/2018 SNF: [facility] Lidocaine Patch 5 % Apply to hip topically one time a day for pain and remove per schedule External Active 04/28/2018 SNF: [facility] Cefdinir Capsule 300 MG Give 1 capsule by mouth two times a day for UTI for 7 Days Oral Inactive 04/28/2018 SNF: [facility] Cyclobenzaprine HCl Tablet 5 MG Give 1 tablet by mouth every 8 hours as needed for Spasm Oral Active 04/28/2018 SNF: [facility] cefdinir 300 MG Oral Capsule 300 mg=1 cap, PO, [id number], X 7 day, # 14 cap, 0 Refill(s), Pharmacy: [facility]/pharmacy #[id number] Active 04/27/2018 [facility] DME Prescription See Instructions, MISC, ONCE, Use TSLO brace when upright., # 1 ea, 0 Refill(s) Active 04/27/2018 [facility] ocular lubricant solution Each Affected Eye, QID, PRN Dry Eyes, 0 Refill(s) Active 04/27/2018 [facility] Artificial Tears 1 drp, Route: Each Affected Eye, QID, Drug form: SOLN, PRN Dry Eyes, Start date: 04/27/18 13:11:00 CDT, Duration: 30 day, Stop date: 05/27/18 13:10:00 CDT Inactive 04/27/2018 [facility] Vantin 200 mg, Route: PO, Drug form: TAB, [id number], Dosing Weight 59.545, kg, Start date: 04/25/18 14:00:00 CDT, Duration: 14 day, Stop date: 05/09/18 2:00:00 CDT, ABX Indication: Urinary Tract Infection Inactive 04/25/2018 [facility] cefdinir 300 mg, 1 cap, Route: PO, Drug form: CAP, [id number], Start date: 04/25/18 14:00:00 CDT, Duration: 14 day, Stop date: 05/09/18 2:00:00 CDTNotes: (Same As: Omnicef) No Longer Active 04/25/2018 [facility] Rocephin 1 gm, Route: IVP, [id number], Dosing Weight 59.545, kg, Start date: 04/23/18 21:00:00 CDT, Duration: 7 day, Stop date: 04/29/18 21:00:00 CDT, ABX Indication: Genital Tract InfectionNotes: (Same As: Rocephin). Use with 100 mL NS and infuse over 30 min MEDICATION WASTE Product Size: 1000 mg Product Wasted: ___ mg No Longer Active 04/24/2018 [facility] Acetaminophen 325 MG / Hydrocodone Bitartrate 5 MG Oral Tablet [[place] 5/325] 1 tab, Route: PO, Drug Form: TAB, Dosing Weight 59.545, kg, Q4H, PRN Pain Score 1-3, Start date: 04/23/18 15:42:00 CDT, Duration: 30 day, Stop date: 05/23/18 15:41:00 CDTNotes: (Same as: [place] 325/5) Do not exceed 4gm/day of acetaminophen. No Longer Active 04/23/2018 [facility] Lovenox 40 mg, 0.4 mL, Route: SUB-Q, Drug form: INJ, [id number], Dosing Weight 59.545, kg, Start date: 04/23/18 9:00:00 CDT, Duration: 30 day, Stop date: 05/22/18 9:00:00 CDTNotes: (Same as: Lovenox) No Longer Active 04/23/2018 [facility] Protonix 40 mg, 1 tab, Route: PO, Drug form: ECTAB, Daily, Dosing Weight 59.545, kg, Start date: 04/23/18 9:00:00 CDT, Duration: 30 day, Stop date: 05/22/18 9:00:00 CDTNotes: Tablet should not be chewed or crushed. (Same as: Protonix) No Longer Active 04/23/2018 [facility] Lopressor 12.5 mg, 0.5 tab, Route: PO, Drug form: TAB, Q12H, Dosing Weight 59.545, kg, Start date: 04/23/18 9:00:00 CDT, Duration: 30 day, Stop date: 05/22/18 21:00:00 CDTNotes: (Same as: Lopressor) No Longer Active 04/23/2018 [facility] Lidocaine 0.05 MG/MG Transdermal Patch 1 patch, Route: TOP, Daily, Drug form: FILM, Start date: 04/23/18 9:00:00 CDT, Duration: 30 day, Stop date: 05/22/18 9:00:00 CDTNotes: Apply only once for up to 12 hours in a 24-hour period (12 hours on and 12 hours off). (Same as: Lidoderm) "Remove old patch before application of new patch" No Longer Active 04/23/2018 [facility] cyclobenzaprine 5 mg, 0.5 tab, Route: PO, Drug form: TAB, TID, Dosing Weight 59.545, kg, PRN Spasm, Start date: 04/23/18 4:27:00 CDT, Duration: 30 day, Stop date: 05/23/18 4:26:00 CDTNotes: (Same As: Flexeril) No Longer Active 04/23/2018 [facility] Acetaminophen 650 mg, 2 tab, Route: PO, Drug form: TAB, Q4H, Dosing Weight 59.545, kg, PRN Pain 1-3/Temp > 100.4 F, Start date: 04/22/18 23:07:00 CDT, Duration: 30 day, Stop date: 05/22/18 23:06:00 CDTNotes: Do not exceed 4 gm/day. (Same as: Tylenol) No Longer Active 04/23/2018 [facility] Ondansetron 4 mg, 2 mL, Route: IVP, Drug form: INJ, Q6H, Dosing Weight 59.545, kg, PRN Nausea & Vomiting, Start date: 04/22/18 23:07:00 CDT, Duration: 30 day, Stop date: 05/22/18 23:06:00 CDTNotes: (Same as: Zofran) MEDICATION WASTE Product Size: 4 mg Product Wasted: ___ mg No Longer Active 04/23/2018 [facility] Ceftriaxone 1 gm, Route: IVPB, ONCE, Dosing Weight 56.818, kg, Priority: STAT, Start date: 04/22/18 20:30:00 CDT, Stop date: 04/22/18 20:30:00 CDT, ABX Indication: Urinary Tract Infection Inactive 04/23/2018 [facility] Acetaminophen 325 MG / Hydrocodone Bitartrate 5 MG Oral Tablet [[place] 5/325] 1 tab, Route: PO, Drug Form: TAB, Dosing Weight 60.909, kg, ONCE, STAT, Start date: 04/13/18 15:48:00 CDT, Stop date: 04/13/18 15:48:00 CDTNotes: (Same as: [place] 325/5) Do not exceed 4gm/day of acetaminophen. Inactive 04/13/2018 [facility] Tylenol 975 mg, 3 tab, Route: PO, Drug form: TAB, ONCE, Dosing Weight 60.909, kg, Priority: STAT, Start date: 04/13/18 14:39:00 CDT, Stop date: 04/13/18 14:39:00 CDTNotes: Do not exceed 4 gm/day. (Same as: Tylenol) Inactive 04/13/2018 [facility] Ibuprofen 800 mg, 2 tab, Route: PO, Drug form: TAB, ONCE, Dosing Weight 60.909, kg, Priority: STAT, Start date: 04/13/18 14:39:00 CDT, Stop date: 04/13/18 14:39:00 CDTNotes: (Same as: Motrin) "Do Not Crush" Give with food. Inactive 04/13/2018 [facility] Cipro Tablet 500 MG Give 500 mg by mouth two times a day for diverticulitis needs stop date Oral Active 03/28/2018 SNF: [facility] MetroNIDAZOLE Tablet 500 MG Give 500 mg by mouth three times a day for diverticulitis needs stop date Oral Active 03/28/2018 SNF: [facility] Xarelto Tablet 10 MG Give 1 tablet by mouth one time a day related to UNSPECIFIED FRACTURE OF LEFT FEMUR, SEQUELA (S72.92XS) Oral Active 03/13/2018 SNF: [facility] Lidocaine Patch 5 % Apply to hip topically one time a day for pain and remove per schedule External Active 03/12/2018 SNF: [facility] Enoxaparin Sodium Solution 40 MG/0.4ML Inject 0.4 ml subcutaneously one time a day for Prophylactic for 2 Days Subcutaneous Active 03/12/2018 SNF: [facility] Levaquin Tablet 500 MG Give 1 tablet by mouth one time a day for Prophylactic for 7 Days Oral Active 03/12/2018 SNF: [facility] Metoprolol Tartrate Tablet Give 12.5 mg by mouth two times a day for HTN Hold for SBP less than 110, HR less than 60 Oral Active 03/11/2018 SNF: [facility] Cyclobenzaprine HCl Tablet 5 MG Give 1 tablet by mouth every 8 hours as needed for Spasm Oral Active 03/11/2018 SNF: [facility] [place] Tablet 7.5-325 MG Give 1 tablet by mouth every 6 hours as needed for pain Oral Active 03/11/2018 SNF: [facility] Levofloxacin 500 MG Oral Tablet [Levaquin] 500 mg=1 tab, PO, Q24H, X 7 day, # 7 tab, 0 Refill(s) Active 03/11/2018 [facility] cyclobenzaprine 10 mg oral tablet 5 mg=0.5 tab, PO, TID, PRN Spasm, 0 Refill(s) Active 03/11/2018 [facility] metoprolol tartrate 25 mg oral tablet 12.5 mg=0.5 tab, PO, Q12H, 0 Refill(s) Active 03/11/2018 [facility] Potassium Chloride 40 mEq, 2 tab, Route: [...] Patient’s with feeding tube less than 14 Romanian (Dobhoff, J-tube etc) and pediatric and patients. With food and full glass of water Inactive 03/11/2018 [facility] metoprolol tartrate 12.5 mg, 0.5 tab, Route: PO, Drug form: TAB, Q12H, Dosing Weight 60.909, kg, Start date: 03/11/18 9:00:00 CDT, Duration: 30 day, Stop date: 04/09/18 21:00:00 CDTNotes: (Same as: Lopressor) Inactive 03/11/2018 [facility] Melatonin 3 mg, 1 tab, Route: PO, Drug form: TAB, Bedtime, Dosing Weight 60.909, kg, PRN Sleep, Start date: 03/10/18 14:42:00 CDT, Duration: 30 day, Stop date: 04/09/18 14:41:00 CDTNotes: (Same as: Melatonin) No Longer Active 03/10/2018 [facility] Tylenol 650 mg, 2 tab, Route: PO, Drug form: TAB, Q6H, Dosing Weight 60.909, kg, PRN Pain Score 4-6, Start date: 03/10/18 14:42:00 CDT, Duration: 30 day, Stop date: 04/09/18 14:41:00 CDTNotes: Do not exceed 4 gm/day. (Same as: Tylenol) No Longer Active 03/10/2018 [facility] Zosyn 3.375 gm, Route: IVPB, [id number], Dosing Weight 60.909, kg, CrCl >=20 ml/min infuse over 4 hours, Start date: 03/09/18 20:00:00 CDT, Duration: 10 day, Stop date: 03/19/18 12:00:00 CDT, ABX Indication: Other (specify in Comments)Notes: (Same as: Zosyn) Dosing based on Piperacillin component MEDICATION WASTE Product Size: 3375 mg Product Wasted: ___ mg No Longer Active 03/10/2018 [facility] Lidocaine 0.05 MG/MG Transdermal Patch 1 patch, TOP, Daily, 0 Refill(s) Active 03/09/2018 [facility] Enoxaparin 40 mg=0.4 mL, SUB-Q, [id number], 0 Refill(s) Active 03/09/2018 [facility] metoprolol extended release 12.5 mg, 0.5 tab, Route: PO, Drug form: ERTAB, Q12H, Start date: 03/08/18 21:00:00 CDT, Duration: 30 day, Stop date: 04/07/18 9:00:00 CDTNotes: (Same as: Toprol XL) Do Not Crush No Longer Active 03/09/2018 [facility] metoprolol 25 mg oral tablet, extended release 25 mg=1 tab, PO, Daily, # 30 tab, 0 Refill(s) No Longer Active 03/08/2018 [facility] Acetaminophen 325 MG / Hydrocodone Bitartrate 7.5 MG Oral Tablet [[place] 7.5/325] 1 tab, Route: PO, Drug Form: TAB, Dosing Weight 60.909, kg, Q6H, PRN Pain Score 4-6, Start date: 03/08/18 12:53:00 CDT, Duration: 30 day, Stop date: 04/07/18 12:52:00 CDTNotes: Same as [place] 325-7.5mg Do not exceed 4gm/day of acetaminophen. No Longer Active 03/08/2018 [facility] Acetaminophen 325 MG / Hydrocodone Bitartrate 5 MG Oral Tablet [[place] 5/325] 1 tab, Route: PO, Drug Form: TAB, Dosing Weight 60.909, kg, Q6H, PRN Pain Score 1-3, Start date: 03/07/18 17:26:00 CDT, Duration: 30 day, Stop date: 04/06/18 17:25:00 CDTNotes: (Same as: [place] 325/5) Do not exceed 4gm/day of acetaminophen. No Longer Active 03/07/2018 [facility] Morphine 6 mg, 3 mL, Route: PO, Drug form: SOLN, Q4H, Dosing Weight 60.909, kg, PRN Pain Score 7-10, Start date: 03/07/18 17:26:00 CDT, Stop date: 04/06/18 17:25:00 CDTNotes: (Same as:MORPhine Sulfate) No Longer Active 03/07/2018 [facility] normal saline 0.9% IV 250 mL 250 mL, Rate: 30 ml/hr, Infuse over: 8.3 hr, Route: IV, Dosing Weight 60.909 kg, Total Volume: 250, Start date: 03/07/18 6:23:00 CDT, Duration: 1 day, Stop date: 03/08/18 6:22:00 CDT, 1.65, m2 No Longer Active 03/07/2018 [facility] remove patch Route: TOP, Bedtime, Drug form: ERFILM, Start date: 03/06/18 21:00:00 CDT, Duration: 30 day, Stop date: 04/04/18 21:00:00 CDTNotes: Remove patch 12 hours after application each day. No Longer Active 03/07/2018 [facility] Tylenol 1,000 mg, 2 tab, Route: PO, Drug form: TAB, TID, Dosing Weight 60.909, kg, Start date: 03/06/18 12:00:00 CDT, Duration: 30 day, Stop date: 04/05/18 6:00:00 CDTNotes: Max acetaminophen 4000 mg/day (4 gm/day). (Same as: Tylenol Extra Strength) No Longer Active 03/06/2018 [facility] pantoprazole 40 mg, 1 tab, Route: PO, Drug form: ECTAB, Daily, Dosing Weight 60.909, kg, Start date: 03/06/18 9:00:00 CDT, Duration: 30 day, Stop date: 04/04/18 9:00:00 CDTNotes: Tablet should not be chewed or cr ushed. (Same as: Protonix) No Longer Active 03/06/2018 [facility] Docusate Sodium 100 MG Oral Capsule 100 mg, 1 cap, Route: PO, Drug form: CAP, BID, Dosing Weight 60.909, kg, Start date: 03/06/18 9:00:00 CDT, Duration: 30 day, Stop date: 04/04/18 17:00:00 CDTNotes: (Same as: Colace) (Do Not Crush) No Longer Active 03/06/2018 [facility] Flexeril 5 mg, 0.5 tab, Route: PO, Drug form: TAB, TID, Dosing Weight 60.909, kg, PRN Spasm, Start date: 03/06/18 9:00:00 CDT, Duration: 30 day, Stop date: 04/05/18 8:59:00 CDTNotes: (Same As: Flexeril) No Longer Active 03/06/2018 [facility] Lidocaine 0.05 MG/MG Transdermal Patch 1 patch, Route: TOP, Daily, Drug form: FILM, Start date: 03/06/18 9:00:00 CDT, Duration: 30 day, Stop date: 04/04/18 9:00:00 CDTNotes: Apply only once for up to 12 hours in a 24-hour period (12 hours on and 12 hours off). (Same as: Lidoderm) "Remove old patch before application of new patch" No Longer Active 03/06/2018 [facility] Enoxaparin 40 mg, 0.4 mL, Route: SUB-Q, Drug form: INJ, [id number], Dosing Weight 60.909, kg, Start date: 03/06/18 9:00:00 CDT, Stop date: 04/03/18 9:00:00 CDTNotes: (Same as: Lovenox) No Longer Active 03/06/2018 [facility] Tylenol 1,000 mg, 2 tab, Route: PO, Drug form: TAB, Daily, Dosing Weight 60.909, kg, PRN Pain Score 4-6, Start date: 03/06/18 8:57:00 CDT, Duration: 30 day, Stop date: 04/05/18 8:56:00 CDTNotes: Max acetaminophen 4000 mg/day (4 gm/day). (Same as: Tylenol Extra Strength) No Longer Active 03/06/2018 [facility] Cefazolin 1 gm, Route: IVP, Q8H, Dosing Weight 60.909, kg, Start date: 03/06/18 1:00:00 CDT, Duration: 1 doses or times, Stop date: 03/06/18 1:00:00 CDT, ABX Indication: Surgical ProphylaxisNotes: (Same As: William Win) MEDICATION WASTE Product Size: 1000 mg Product Wasted: ___ mg Inactive 03/06/2018 [facility] Clindamycin 600 mg, 50 mL, Route: IVPB, Drug form: INJ, [id number], Dosing Weight 60.909, kg, Start date: 03/05/18 21:00:00 CDT, Duration: 1 doses or times, Stop date: 03/05/18 21:00:00 CDT, ABX Indication: Surgical Prophylaxis Inactive 03/06/2018 [facility] Labetalol 10 mg, Route: IVP, Q5Min, Dosing Weight 60.909, kg, PRN Elevated BP, Start date: 03/05/18 18:45:00 CDT, Duration: 5 doses or times, Stop date: Limited # of times Inactive 03/05/2018 [facility] Acetaminophen 1,000 mg, Route: PO, Drug form: TAB, ONCE, Dosing Weight 60.909, kg, PRN Pain Score 1-3, Start date: 03/05/18 18:45:00 CDT Inactive 03/05/2018 [facility] Hydralazine 10 mg, Route: IVP, Q20Min, Dosing Weight 60.909, kg, PRN Elevated BP, Start date: 03/05/18 18:45:00 CDT, Duration: 2 doses or times, Stop date: Limited # of times Inactive 03/05/2018 [facility] esmolol 10 mg, Route: IVP, Q5Min, Dosing Weight 60.909, kg, PRN Other -See Comment, Start date: 03/05/18 18:45:00 CDT, Duration: 5 doses or times, Stop date: Limited # of times Inactive 03/05/2018 [facility] Calcium Chloride 0.0014 MEQ/ML / Potassium Chloride 0.004 MEQ/ML / Sodium Chloride 0.103 MEQ/ML / Sodium Lactate 0.028 MEQ/ML Injectable Solution 1,000 mL, Rate: 125 ml/hr, Infuse over: 8 hr, Route: IV, Dosing Weight 60.909 kg, Total Volume: 1,000, Start date: 03/05/18 18:45:00 CDT, Duration: 30 day, Stop date: 04/04/18 18:44:00 CDT, 1.65, m2 Inactive 03/05/2018 [facility] Diphenhydramine 12.5 mg, Route: IVP, Drug form: INJ, Q6H, Dosing Weight 60.909, kg, PRN Itching, Start date: 03/05/18 18:45:00 CDT, Duration: 30 day, Stop date: 04/04/18 18:44:00 CDT Inactive 03/05/2018 [facility] Albuterol 0.83 MG/ML Inhalant Solution 2.49 mg, Route: NEB, Q20Min, Dosing Weight 60.909, kg, PRN Wheezing, Priority: STAT, Start date: 03/05/18 18:45:00 CDT, Duration: 30 day, Stop date: 04/04/18 18:44:00 CDT Inactive 03/05/2018 [facility] Flumazenil 0.2 mg, Route: IVP, PRN, Dosing Weight 60.909, kg, PRN Benzodiazepine Reversal, Initial dose, Start date: 03/05/18 18:45:00 CDT, Duration: 30 day, Stop date: 04/04/18 18:44:00 CDT Inactive 03/05/2018 [facility] Naloxone 0.4 mg, Route: IVP, Q2MIN, Dosing Weight 60.909, kg, PRN Narcotic Reversal, Start date: 03/05/18 18:45:00 CDT, Duration: 8 doses or times, Stop date: Limited # of times Inactive 03/05/2018 [facility] Hydromorphone 0.5 mg, Route: IVP, Q5Min, Dosing Weight 60.909, kg, PRN Pain Score 7-10, Start date: 03/05/18 18:45:00 CDT, Duration: 4 doses or times, Stop date: Limited # of times Inactive 03/05/2018 [facility] Fentanyl 50 microgram, Route: IVP, Q5Min, Dosing Weight 60.909, kg, PRN Pain Score 7-10, Priority: Routine, Start date: 03/05/18 18:45:00 CDT, Duration: 2 doses or times, Stop date: Limited # of times Inactive 03/05/2018 [facility] Morphine 4 mg, Route: IVP, Q5Min, Dosing Weight 60.909, kg, PRN Pain Score 7-10, Start date: 03/05/18 18:45:00 CDT, Duration: 3 doses or times, Stop date: Limited # of times Inactive 03/05/2018 [facility] Oxycodone 5 mg, Route: PO, Drug form: TAB, Q4H, Dosing Weight 60.909, kg, PRN Pain Score 4-6, Start date: 03/05/18 18:45:00 CDT, Duration: 30 day, Stop date: 04/04/18 18:44:00 CDT Inactive 03/05/2018 [facility] Meperidine 12.5 mg, Route: IVP, Q30Min, Dosing Weight 60.909, kg, PRN Other -See Comment, For shivering, Start date: 03/05/18 18:45:00 CDT, Duration: 2 doses or times, Stop date: Limited # of times Inactive 03/05/2018 [facility] Dexamethasone 4 mg, Route: IVP, ONCE, Dosing Weight 60.909, kg, PRN Nausea & Vomiting, Start date: 03/05/18 18:45:00 CDT Inactive 03/05/2018 [facility] Ondansetron 4 mg, Route: IVP, ONCE, Dosing Weight 60.909, kg, PRN Nausea & Vomiting, Start date: 03/05/18 18:45:00 CDT Inactive 03/05/2018 [facility] Dulcolax Laxative 5 mg, 1 tab, Route: PO, Drug form: ECTAB, Q24H, Dosing Weight 60.909, kg, PRN Constipation, Start date: 03/05/18 18:37:00 CDT, Duration: 30 day, Stop date: 04/04/18 18:36:00 CDTNotes: (Same As: Dulcolax , Correctol) (Do Not Crush) "Do Not Crush" No Longer Active 03/05/2018 [facility] Diphenhydramine 12.5 mg, 0.5 tab, Route: PO, Drug form: TAB, Q6H, Dosing Weight 60.909, kg, PRN Itching, Start date: 03/05/18 18:37:00 CDT, Duration: 30 day, Stop date: 04/04/18 18:36:00 CDT No Longer Active 03/05/2018 [facility] Al hydroxide/Mg hydroxide/simethicone 200 mg-200 mg-20 mg/5 mL oral suspension 30 ml, Route: PO, Drug Form: SUSP, Dosing Weight 60.909, kg, Q4H, PRN Indigestion, Start date: 03/05/18 18:37:00 CDT, Duration: 30 day, Stop date: 04/04/18 18:36:00 CDTNotes: (aluminum hydroxide-magnesium hyd- simethicone [id number]/5ml 30 ml ud GRISELDA) No Longer Active 03/05/2018 [facility] Lactated Ringers IV 1,000 mL 1,000 mL, Rate: 75 ml/hr, Infuse over: 13.3 hr, Route: IV, Dosing Weight 60.909 kg, Total Volume: 1,000, Start date: 03/05/18 18:37:00 CDT, Duration: 30 day, Stop date: 04/04/18 18:36:00 CDT, 1.65, m2 No Longer Active 03/05/2018 [facility] Acetaminophen 650 mg, 2 tab, Route: PO, Drug form: TAB, Q4H, Dosing Weight 60.909, kg, PRN Pain 1-3/Temp > 100.4 F, Start date: 03/05/18 18:37:00 CDT, Duration: 30 day, Stop date: 04/04/18 18:36:00 CDTNotes: Do not exceed 4 gm/day. (Same as: Tylenol) No Longer Active 03/05/2018 [facility] rocuronium (ANES) Route: IV, Drug form: INJ, ONCE, Stop date: 03/05/18 18:33:00 CDT Inactive 03/05/2018 [facility] fentaNYL (ANES) Route: IV, Drug form: INJ, ONCE, Stop date: 03/05/18 18:33:00 CDT Inactive 03/05/2018 [facility] ondansetron (ANES) Route: IV, Drug form: INJ, ONCE, Stop date: 03/05/18 18:33:00 CDT Inactive 03/05/2018 [facility] metoprolol (ANES) Route: IV, Drug form: INJ, ONCE, Stop date: 03/05/18 18:33:00 CDT Inactive 03/05/2018 [facility] dexamethasone (ANES) Route: IV, Drug form: INJ, ONCE, Stop date: 03/05/18 18:33:00 CDT Inactive 03/05/2018 [facility] glycopyrrolate (ANES) Route: IV, Drug form: INJ, ONCE, Stop date: 03/05/18 18:33:00 CDT Inactive 03/05/2018 [facility] neostigmine (ANES) Route: IV, Drug form: INJ, ONCE, Stop date: 03/05/18 18:33:00 CDT Inactive 03/05/2018 [facility] esmolol (ANES) Route: IV, Drug form: INJ, ONCE, Stop date: 03/05/18 18:33:00 CDT Inactive 03/05/2018 [facility] [facility] Amidate (ANES) Route: IV, Drug form: INJ, ONCE, Stop date: 03/05/18 18:33:00 CDT Inactive 03/05/2018 [facility] norepinephrine (ANES) Route: IV, Drug form: INJ, ONCE, Stop date: 03/05/18 18:03:00 CDT Inactive 03/05/2018 [facility] metoclopramide (ANES) Route: IV, Drug form: INJ, ONCE, Stop date: 03/05/18 18:03:00 CDT Inactive 03/05/2018 [facility] lidocaine (ANES) Route: IV, Drug form: INJ, ONCE, Stop date: 03/05/18 18:03:00 CDT Inactive 03/05/2018 [facility] fentaNYL (ANES) Route: IV, Drug form: INJ, ONCE, Stop date: 03/05/18 17:48:00 CDT Inactive 03/05/2018 [facility] cefOXitin (ANES) Route: IV, Drug form: INJ, ONCE, Stop date: 03/05/18 17:48:00 CDT Inactive 03/05/2018 [facility] propofol (ANES) Route: IV, Drug form: INJ, ONCE, Stop date: 03/05/18 17:48:00 CDT Inactive 03/05/2018 [facility] ceFAZolin (ANES) Route: IV, Drug form: INJ, ONCE, Stop date: 03/05/18 17:38:00 CDT Inactive 03/05/2018 [facility] midazolam (ANES) Route: IV, Drug form: SOLN, ONCE, Stop date: 03/05/18 17:33:00 CDT Inactive 03/05/2018 [facility] metoprolol tartrate 12.5 mg, 0.5 tab, Route: PO, Drug form: TAB, BID, Dosing Weight 60.909, kg, Start date: 03/05/18 17:00:00 CDT, Duration: 30 day, Stop date: 04/04/18 9:00:00 CDTNotes: (Same as: Lopressor) No Longer Active 03/05/2018 [facility] Lactated Ringers Injection IV (ANES) 1000 mL Route: IV, Total Volume: 1,000, Start date: 03/05/18 16:58:00 CDT, Stop date: 03/05/18 17:58:00 CDT Inactive 03/05/2018 [facility] Protonix 40 mg, 1 tab, Route: PO, Drug form: ECTAB, Before Dinner, Dosing Weight 60.909, kg, Start date: 03/05/18 16:30:00 CDT, Duration: 30 day, Stop date: 04/03/18 16:30:00 CDTNotes: Tablet should not be chewed or crushed. (Same as: Protonix) Inactive 03/05/2018 [facility] Hydralazine 10 mg, 0.5 mL, Route: IVP, Drug form: INJ, Q4H, Dosing Weight 60.909, kg, PRN Hypertension, Start date: 03/05/18 10:13:00 CDT, Duration: 30 day, Stop date: 04/04/18 10:12:00 CDTNotes: (Same as: Chichi pena) Push over 5 minutes No Longer Active 03/05/2018 [facility] Melatonin 3 mg, 1 tab, Route: PO, Drug form: TAB, Bedtime, Dosing Weight 60.909, kg, PRN Sleep, Start date: 03/05/18 10:13:00 CDT, Duration: 30 day, Stop date: 04/04/18 10:12:00 CDTNotes: (Same as: Melatonin) No Longer Active 03/05/2018 [facility] Streptococcus pneumoniae serotype 1 capsular antigen diphtheria [id number] protein conjugate vaccine / Streptococcus pneumoniae serotype 14 capsular antigen diphtheria [id number] protein conjugate vaccine / Streptococcus pneumoniae serotype 18C capsular antigen d 0.5 mL, Route: IM, Drug Form: INJ, Daily, Start date: 03/05/18 9:00:00 CDT, Duration: 1 doses or times, Stop date: 03/05/18 9:00:00 CDTNotes: Shake well prior to use (Same as: Prevnar 13) Inactive 03/05/2018 [facility] NURSE please update PT's HEIGHT in [facility] when possible NURSE please update PT's HEIGHT in [facility] when possible, 1, Drug form: MISC, Route: MISC, Q30Min, 03/05/18 8:00:00 CDT, Duration: 4 doses or times, Stop date: 03/05/18 9:30:00 CDT Inactive 03/05/2018 [facility] Ancef + sterile water 20 mL 2 gm, Route: IV, ONCE, Dosing Weight 60.909, kg, Start date: 03/05/18 7:49:00 CDT, Stop date: 03/05/18 7:49:00 CDT, Surgical Prophylaxis Only; For patients Notes: (Same As: AncefAdanzol) MEDICATION WASTE Product Size: 1000 mg Product Wasted: ___ mg Inactive 03/05/2018 [facility] hydromorphone 0.3 mg, 0.3 mL, Route: IV, Drug form: INJ, Q4H, PRN Pain Score 7-10, Start date: 03/05/18 5:00:00 CDT, Duration: 30 day, Stop date: 04/04/18 4:59:00 CDTNotes: Same as: Dilaudid No Longer Active 03/05/2018 [facility] metoprolol tartrate 25 mg, PO, BID, metoprolol 2mg 1/2 tab twice daily per medication bottle, 0 Refill(s) No Longer Active 03/05/2018 [facility] Protonix 40 mg, PO, Daily, # 30 tab, 0 Refill(s) Active 03/05/2018 [facility] Fentanyl 50 microgram, Route: IVP, ONCE, Dosing Weight 66.364, kg, Priority: STAT, Start date: 03/04/18 23:59:00 CDT, Stop date: 03/04/18 23:59:00 CDT No Longer Active 03/05/2018 [facility] Saline Flush 0.9% 10 ml, Route: IVP, Drug Form: INJ, Dosing Weight 66.364, kg, PRN, PRN Line Flush, Start date: 03/04/18 23:58:00 CDT, Duration: 30 day, Stop date: 04/03/18 23:57:00 CDTNotes: (Same as: BD Posiflush) No Longer Active 03/05/2018 [facility] Sodium Chloride 0.9% IV 1,000 mL 1,000 mL, Rate: 75 ml/hr, Infuse over: 13.3 hr, Route: IV, Dosing Weight 66.364 kg, Total Volume: 1,000, Start date: 03/04/18 23:58:00 CDT, Duration: 30 day, Stop date: 04/03/18 23:57:00 CDT No Longer Active 03/05/2018 [facility] Acetaminophen 325 MG / Hydrocodone Bitartrate 5 MG Oral Tablet 2 tab, Route: PO, Drug Form: TAB, Dosing Weight 66.364, kg, Q4H, PRN Pain Score 7-10, Start date: 03/04/18 23:58:00 CDT, Duration: 30 day, Stop date: 04/03/18 23:57:00 CDTNotes: (Same as: [place] 325/5) Do not exceed 4gm/day of acetaminophen. No Longer Active 03/05/2018 [facility] Morphine 2 mg, Route: IVP, Q4H, Dosing Weight 66.364, kg, PRN Pain Score 7-10, Start date: 03/04/18 23:58:00 CDT, Duration: 30 day, Stop date: 04/03/18 23:57:00 CDT No Longer Active 03/05/2018 [facility] Dilaudid 0.5 mg, 0.5 mL, Route: IVP, Drug form: INJ, ONCE, Dosing Weight 66.364, kg, Priority: STAT, Start date: 03/04/18 23:37:00 CDT, Stop date: 03/04/18 23:37:00 CDTNotes: Same as: Dilaudid No Longer Active 03/05/2018 [facility] Fentanyl 50 microgram, Route: IVP, ONCE, Dosing Weight 66.364, kg, Priority: STAT, Start date: 03/04/18 21:49:00 CDT, Stop date: 03/04/18 21:49:00 CDT Inactive 03/05/2018 [facility] Allergies, Adverse Reactions, Alerts Substance Category Reaction Severity Reaction type Status Date Reported Comments Source CODINE Assertion Drug allergy Active 01/10/2003 [facility] [place] Tramadol 03/11/2018 [facility]: [facility] Codeine 03/12/2018 [facility]: [facility] [place] [facility] Penicillin 03/12/2018 [facility]: [facility] [place] [facility] PCN Assertion Drug allergy Active [facility] traMADol Assertion Drug allergy Active [facility] Immunizations Immunization Date Given Site Status Last Updated Comments Source pneumococcal 13-valent vaccine 03/05/2018 Left deltoid completed [facility] Results Order Name Results Value Reference Range [...] canal stenosis or neural foraminal narrowing. SL: [id number] 04/27/2018 - - Read by: Phong Alvarado MD Dictated Date/time: 04/27/18 12:54 Electronically Signed by: Phong Alvarado MD 04/27/18 13:03 FINAL REPORT [facility] CHEM PANEL A/G Ratio 1.0 0.7 - 1.6 04/26/2018 [facility] CHEM PANEL AGAP 8.9 meq/L 10.0 - 20.0 04/26/2018 [facility] CHEM PANEL Globulin 3.1 g/dL 2.7 - 4.2 04/26/2018 [facility] CHEM PANEL B/C Ratio 19 6 - 25 04/26/2018 [facility] CHEM PANEL eGFR 80 mL/min/1.73m2 04/26/2018 Result [...] Total 0.3 mg/dL 0.2 - 1.3 04/26/2018 [facility] CHEM PANEL AST 14 unit/L 0 - 37 04/26/2018 [facility] CHEM PANEL Sodium Lvl 140 meq/L 135 - 145 04/26/2018 [facility] CHEM PANEL BUN 13 mg/dL 7 - 22 04/26/2018 [facility] CHEM PANEL Creatinine Lvl 0.67 mg/dL 0.50 - 1.40 04/26/2018 [facility] CHEM PANEL Glucose Lvl 80 mg/dL 70 - 99 04/26/2018 [facility] CHEM PANEL Albumin Lvl 3.0 g/dL 3.5 - 5.0 04/26/2018 [facility] CHEM PANEL ALT 12 unit/L 0 - 65 04/26/2018 [facility] CHEM PANEL CO2 27 meq/L 24 - 32 04/26/2018 [facility] CHEM PANEL Calcium Lvl 8.7 mg/dL 8.5 - 10.5 04/26/2018 [facility] CHEM PANEL Potassium Lvl 3.9 meq/L 3.5 - 5.1 04/26/2018 [facility] CHEM PANEL Chloride Lvl 108 meq/L 95 - 109 04/26/2018 [facility] CHEM PANEL Total Protein 6.1 g/dL 6.4 - 8.4 04/26/2018 [facility] HEMATOLOGY MCV 91.1 fL 80.0 - 98.0 04/26/2018 [facility] HEMATOLOGY Hct 38.5 % 36.0 - 48.0 04/26/2018 [facility] HEMATOLOGY Hgb 12.9 g/dL 12.0 - 16.0 04/26/2018 [facility] HEMATOLOGY MCHC 33.5 g/dL 32.0 - 36.0 04/26/2018 [facility] HEMATOLOGY MCH 30.5 pg 27.0 - 31.0 04/26/2018 [facility] HEMATOLOGY MPV 8.4 fL 7.4 - 10.4 04/26/2018 [facility] HEMATOLOGY Platelet 184 K/CMM 133 - 450 04/26/2018 [facility] HEMATOLOGY RDW 16.2 % 11.5 - 14.5 04/26/2018 [facility] HEMATOLOGY RBC 4.23 M/CMM 4.20 - 5.40 04/26/2018 [facility] HEMATOLOGY WBC 5.2 K/CMM 3.7 - 10.4 04/26/2018 [facility] HEMATOLOGY Segs-Bands # 2.9 K/CMM 1.5 - 8.1 04/26/2018 [facility] HEMATOLOGY Eosinophils # 0.1 K/CMM 0.0 - 0.5 04/26/2018 [facility] HEMATOLOGY Monocytes # 0.6 K/CMM 0.0 - 0.8 04/26/2018 [facility] HEMATOLOGY Lymphocytes # 1.5 K/CMM 1.0 - 5.5 04/26/2018 [facility] HEMATOLOGY Segs 55.8 % 45.0 - 75.0 04/26/2018 [facility] HEMATOLOGY Basophils 0.6 % 0.0 - 1.0 04/26/2018 [facility] HEMATOLOGY Eosinophils 2.9 % 0.0 - 4.0 04/26/2018 [facility] Monocytes 11.5 % 2.0 - 12.0 04/26/2018 [facility] Lymphocytes 29.2 % 20.0 - 40.0 04/26/2018 [facility] CHEM PANEL eGFR 74 mL/min/1.73m2 04/25/2018 Result [...] should be multiplied by the estimated BMI. [facility] CHEM PANEL Bili Total 0.5 mg/dL 0.2 - 1.3 04/25/2018 [facility] CHEM PANEL B/C Ratio 18 6 - 25 04/25/2018 [facility] CHEM PANEL Albumin Lvl 2.8 g/dL 3.5 - 5.0 04/25/2018 [facility] CHEM PANEL Total Protein 6.2 g/dL 6.4 - 8.4 04/25/2018 [facility] CHEM PANEL Globulin 3.4 g/dL 2.7 - 4.2 04/25/2018 [facility] CHEM PANEL ALT 13 unit/L 0 - 65 04/25/2018 [facility] CHEM PANEL A/G Ratio 0.8 0.7 - 1.6 04/25/2018 [facility] CHEM PANEL Chloride Lvl 110 meq/L 95 - 109 04/25/2018 [facility] CHEM PANEL CO2 24 meq/L 24 - 32 04/25/2018 [facility] CHEM PANEL AGAP 11.9 meq/L 10.0 - 20.0 04/25/2018 [facility] CHEM PANEL Calcium Lvl 8.7 mg/dL 8.5 - 10.5 04/25/2018 [facility] CHEM PANEL Alk Phos 104 unit/L 39 - 136 04/25/2018 [facility] CHEM PANEL AST 13 unit/L 0 - 37 04/25/2018 [facility] CHEM PANEL Potassium Lvl 3.9 meq/L 3.5 - 5.1 04/25/2018 [facility] CHEM PANEL Sodium Lvl 142 meq/L 135 - 145 04/25/2018 [facility] CHEM PANEL Glucose Lvl 83 mg/dL 70 - 99 04/25/2018 [facility] CHEM PANEL Creatinine Lvl 0.74 mg/dL 0.50 - 1.40 04/25/2018 [facility] CHEM PANEL BUN 13 mg/dL 7 - 22 04/25/2018 [facility] HEMATOLOGY Eosinophils 2.6 % 0.0 - 4.0 04/25/2018 [facility] HEMATOLOGY Monocytes 11.9 % 2.0 - 12.0 04/25/2018 [facility] HEMATOLOGY Lymphocytes 24.7 % 20.0 - 40.0 04/25/2018 [facility] Monocytes # 0.6 K/CMM 0.0 - 0.8 04/25/2018 [facility] HEMATOLOGY Eosinophils # 0.1 K/CMM 0.0 - 0.5 04/25/2018 [facility] HEMATOLOGY Segs-Bands # 3.2 K/CMM 1.5 - 8.1 04/25/2018 [facility] HEMATOLOGY Basophils 0.9 % 0.0 - 1.0 04/25/2018 [facility] HEMATOLOGY Lymphocytes # 1.3 K/CMM 1.0 - 5.5 04/25/2018 [facility] HEMATOLOGY Segs 59.9 % 45.0 - 75.0 04/25/2018 [facility] HEMATOLOGY RDW 16.8 % 11.5 - 14.5 04/25/2018 [facility] HEMATOLOGY Platelet 187 K/CMM 133 - 450 04/25/2018 [facility] HEMATOLOGY MCH 30.8 pg 27.0 - 31.0 04/25/2018 [facility] MCHC 33.5 g/dL 32.0 - 36.0 04/25/2018 [facility] MPV 8.5 fL 7.4 - 10.4 04/25/2018 [facility] WBC 5.3 K/CMM 3.7 - 10.4 04/25/2018 [facility] Hct 39.0 % 36.0 - 48.0 04/25/2018 [facility] MCV 91.8 fL 80.0 - 98.0 04/25/2018 [facility] RBC 4.25 M/CMM 4.20 - 5.40 04/25/2018 [facility] Hgb 13.1 g/dL 12.0 - 16.0 04/25/2018 [facility] Spine Lumbar Comp w Bend views DX [...] Efrain Barbour MD 04/25/18 15:40 FINAL REPORT [facility] CHEM PANEL eGFR 77 mL/min/1.73m2 04/24/2018 Result [...] should be multiplied by the estimated BMI. [facility] CHEM PANEL Calcium Lvl 8.9 mg/dL 8.5 - 10.5 04/24/2018 [facility] CHEM PANEL Chloride Lvl 110 meq/L 95 - 109 04/24/2018 [facility] CHEM PANEL Alk Phos 101 unit/L 39 - 136 04/24/2018 [facility] CHEM PANEL AST 9 unit/L 0 - 37 04/24/2018 [facility] CHEM PANEL CO2 27 meq/L 24 - 32 04/24/2018 [facility] CHEM PANEL Albumin Lvl 3.1 g/dL 3.5 - 5.0 04/24/2018 [facility] CHEM PANEL Total Protein 6.1 g/dL 6.4 - 8.4 04/24/2018 [facility] CHEM PANEL ALT 7 unit/L 0 - 65 04/24/2018 [facility] CHEM PANEL Bili Total 0.3 mg/dL 0.2 - 1.3 04/24/2018 [facility] CHEM PANEL Potassium Lvl 4.8 meq/L 3.5 - 5.1 04/24/2018 [facility] CHEM PANEL Glucose Lvl 77 mg/dL 70 - 99 04/24/2018 [facility] CHEM PANEL BUN 13 mg/dL 7 - 22 04/24/2018 [facility] CHEM PANEL Sodium Lvl 145 meq/L 135 - 145 04/24/2018 [facility] CHEM PANEL Creatinine Lvl 0.72 mg/dL 0.50 - 1.40 04/24/2018 [facility] CHEM PANEL A/G Ratio 1.0 0.7 - 1.6 04/24/2018 [facility] CHEM PANEL AGAP 12.8 meq/L 10.0 - 20.0 04/24/2018 [facility] CHEM PANEL Globulin 3.0 g/dL 2.7 - 4.2 04/24/2018 [facility] CHEM PANEL B/C Ratio 18 6 - 25 04/24/2018 [facility] CHEM PANEL Procalcitonin Lvl <0.05 ng/mL 0.00 - 0.10 04/24/2018 [facility] HEMATOLOGY Hct 38.8 % 36.0 - 48.0 04/24/2018 [facility] MCHC 32.2 g/dL 32.0 - 36.0 04/24/2018 [facility] MCH 29.7 pg 27.0 - 31.0 04/24/2018 [facility] MCV 92.2 fL 80.0 - 98.0 04/24/2018 [facility] Hgb 12.5 g/dL 12.0 - 16.0 04/24/2018 [facility] Platelet 211 K/CMM 133 - 450 04/24/2018 [facility] MPV 8.8 fL 7.4 - 10.4 04/24/2018 [facility] RDW 16.8 % 11.5 - 14.5 04/24/2018 [facility] WBC 5.5 K/CMM 3.7 - 10.4 04/24/2018 [facility] RBC 4.21 M/CMM 4.20 - 5.40 04/24/2018 [facility] Eosinophils 3.2 % 0.0 - 4.0 04/24/2018 [facility] Monocytes 11.3 % 2.0 - 12.0 04/24/2018 [facility] Lymphocytes 27.7 % 20.0 - 40.0 04/24/2018 [facility] Basophils 0.6 % 0.0 - 1.0 04/24/2018 [facility] Segs-Bands # 3.2 K/CMM 1.5 - 8.1 04/24/2018 [facility] Eosinophils # 0.2 K/CMM 0.0 - 0.5 04/24/2018 [facility] Monocytes # 0.6 K/CMM 0.0 - 0.8 04/24/2018 [facility] Lymphocytes # 1.5 K/CMM 1.0 - 5.5 04/24/2018 [facility] Segs 57.2 % 45.0 - 75.0 04/24/2018 [facility] CHEM PANEL Lactic Acid Lvl 1.0 mMol/L 0.5 - 2.2 04/23/2018 [facility] Retroperitoneal Complete US Retroperitoneal Complete US Patient Name: NICK CURRIE. : 1930; Age: 87 years y/o; Female. MR: [id number]. Ordering Physician: Shaun Wilkerson MD. PROCEDURE: RENAL [...] Positive *ABN* (04/22/18 8:07 PM) Negative 04/23/2018 [facility] URINE AND STOOL UA pH 5.0 5.0 - 8.0 04/23/2018 [facility] URINE AND STOOL UA Spec Grav 1.016 <=1.030 04/23/2018 [facility] URINE AND STOOL UA Turbidity Clear (04/22/18 8:07 PM) Clear 04/23/2018 [facility] URINE AND STOOL UA Color Yellow *NA* (04/22/18 8:07 PM) Yellow 04/23/2018 [facility] URINE AND STOOL UA Protein Negative mg/dL Negative mg/dL 04/23/2018 [facility] CARDIAC ENZYMES Troponin-I null 0.00 - 0.40 04/23/2018 [facility] URINE AND STOOL UA Urobilinogen <=1.0 mg/dL 0.1 - 1.0 04/13/2018 [facility] URINE AND STOOL UA Mucus Few /LPF None Seen /LPF 04/13/2018 [facility] URINE AND STOOL UA WBC 4 /HPF 0 - 5 04/13/2018 [facility] URINE AND STOOL UA Sq Epi Occasional /LPF Few /LPF 04/13/2018 [facility] URINE AND STOOL UA RBC 6 /HPF 0 - 2 04/13/2018 [facility] URINE AND STOOL UA Bacteria Occasional /HPF None Seen /HPF 04/13/2018 [facility] URINE AND STOOL UA pH 6.0 5.0 - 8.0 04/13/2018 [facility] URINE AND STOOL UA Spec Grav 1.014 <=1.030 04/13/2018 [facility] URINE AND STOOL UA Blood Moderate *ABN* (04/13/18 2:03 PM) Negative 04/13/2018 [facility] URINE AND STOOL UA Nitrite Negative (04/13/18 2:03 PM) Negative 04/13/2018 [facility] URINE AND STOOL UA Leuk Est Small *ABN* (04/13/18 2:03 PM) Negative 04/13/2018 [facility] URINE AND STOOL UA Color Yellow *NA* (04/13/18 2:03 PM) Yellow 04/13/2018 [facility] URINE AND STOOL UA Turbidity Clear (04/13/18 2:03 PM) Clear 04/13/2018 [facility] URINE AND STOOL UA Glucose Negative mg/dL Negative mg/dL 04/13/2018 [facility] URINE AND STOOL UA Protein Negative mg/dL Negative mg/dL 04/13/2018 [facility] URINE AND STOOL UA Bili Negative *NA* (04/13/18 2:03 PM) Negative 04/13/2018 [facility] URINE AND STOOL UA Ketones Negative mg/dL Negative mg/dL 04/13/2018 [facility] Pelvis AP DX Pelvis AP DX Clinical [...] hip. No acute abnormalities are identified. SL: [id number] 04/13/2018 - - Read by: Sree Gardner MD Dictated Date/time: 04/13/18 13:16 Electronically Signed by: Sree Gardner MD 04/13/18 13:17 FINAL REPORT [facility] ELECTROLYTES AGAP 10.6 meq/L 10.0 - 20.0 03/11/2018 [facility] ELECTROLYTES eGFR 85 mL/min/1.73m2 03/11/2018 Result Comment: [...] should be multiplied by the estimated BMI. [facility] ELECTROLYTES BUN 14 mg/dL 7 - 22 03/11/2018 [facility] ELECTROLYTES CO2 26 meq/L 24 - 32 03/11/2018 [facility] ELECTROLYTES Calcium Lvl 7.9 mg/dL 8.5 - 10.5 03/11/2018 [facility] ELECTROLYTES Potassium Lvl 3.6 meq/L 3.5 - 5.1 03/11/2018 [facility] ELECTROLYTES Sodium Lvl 144 meq/L 135 - 145 03/11/2018 [facility] ELECTROLYTES Chloride Lvl 111 meq/L 95 - 109 03/11/2018 [facility] ELECTROLYTES Creatinine Lvl 0.56 mg/dL 0.50 - 1.40 03/11/2018 [facility] ELECTROLYTES Glucose Lvl 83 mg/dL 70 - 99 03/11/2018 [facility] HEMATOLOGY MPV 7.8 fL 7.4 - 10.4 03/11/2018 [facility] WBC 5.9 K/CMM 3.7 - 10.4 03/11/2018 [facility] Platelet 214 K/CMM 133 - 450 03/11/2018 [facility] RDW 16.1 % 11.5 - 14.5 03/11/2018 [facility] MCHC 33.0 g/dL 32.0 - 36.0 03/11/2018 [facility] Hct 26.7 % 36.0 - 48.0 03/11/2018 [facility] RBC 3.07 M/CMM 4.20 - 5.40 03/11/2018 [facility] MCV 86.9 fL 80.0 - 98.0 03/11/2018 [facility] Hgb 8.8 g/dL 12.0 - 16.0 03/11/2018 [facility] MCH 28.7 pg 27.0 - 31.0 03/11/2018 [facility] CHEM PANEL eGFR 86 mL/min/1.73m2 03/10/2018 Result [...] should be multiplied by the estimated BMI. [facility] CHEM PANEL Chloride Lvl 109 meq/L 95 - 109 03/10/2018 [facility] CHEM PANEL CO2 28 meq/L 24 - 32 03/10/2018 [facility] CHEM PANEL Calcium Lvl 7.9 mg/dL 8.5 - 10.5 03/10/2018 [facility] CHEM PANEL Sodium Lvl 143 meq/L 135 - 145 03/10/2018 [facility] CHEM PANEL Creatinine Lvl 0.55 mg/dL 0.50 - 1.40 03/10/2018 [facility] CHEM PANEL Potassium Lvl 3.3 meq/L 3.5 - 5.1 03/10/2018 [facility] CHEM PANEL BUN 13 mg/dL 7 - 22 03/10/2018 [facility] CHEM PANEL Glucose Lvl 88 mg/dL 70 - 99 03/10/2018 [facility] CHEM PANEL AGAP 9.3 meq/L 10.0 - 20.0 03/10/2018 [facility] RBC 3.02 M/CMM 4.20 - 5.40 03/10/2018 [facility] Hgb 8.8 g/dL 12.0 - 16.0 03/10/2018 [facility] WBC 9.2 K/CMM 3.7 - 10.4 03/10/2018 [facility] MPV 7.9 fL 7.4 - 10.4 03/10/2018 [facility] RDW 16.2 % 11.5 - 14.5 03/10/2018 [facility] Platelet 187 K/CMM 133 - 450 03/10/2018 [facility] Hct 26.0 % 36.0 - 48.0 03/10/2018 [facility] MCHC 33.7 g/dL 32.0 - 36.0 03/10/2018 [facility] MCH 29.1 pg 27.0 - 31.0 03/10/2018 [facility] MCV 86.3 fL 80.0 - 98.0 03/10/2018 [facility] Chest 1view DX Chest 1view DX PROCEDURE: [...] atelectasis within the right lower chest. SL: [id number] 03/09/2018 - - Read by: Bret Landrum MD Dictated Date/time: 03/10/18 06:52 Electronically Signed by: Bret Landrum MD 03/10/18 06:53 FINAL REPORT [facility] ELECTROLYTES AGAP 11.7 meq/L 10.0 - 20.0 03/09/2018 [facility] ELECTROLYTES eGFR 84 mL/min/1.73m2 03/09/2018 Result Comment: [...] should be multiplied by the estimated BMI. [facility] ELECTROLYTES CO2 27 meq/L 24 - 32 03/09/2018 [facility] ELECTROLYTES Calcium Lvl 8.1 mg/dL 8.5 - 10.5 03/09/2018 [facility] ELECTROLYTES Glucose Lvl 96 mg/dL 70 - 99 03/09/2018 [facility] ELECTROLYTES Chloride Lvl 107 meq/L 95 - 109 03/09/2018 [facility] ELECTROLYTES Potassium Lvl 3.7 meq/L 3.5 - 5.1 03/09/2018 [facility] ELECTROLYTES BUN 9 mg/dL 7 - 22 03/09/2018 [facility] ELECTROLYTES Sodium Lvl 142 meq/L 135 - 145 03/09/2018 [facility] ELECTROLYTES Creatinine Lvl 0.59 mg/dL 0.50 - 1.40 03/09/2018 [facility] HEMATOLOGY MPV 8.5 fL 7.4 - 10.4 03/09/2018 [facility] HEMATOLOGY Platelet 150 K/CMM 133 - 450 03/09/2018 [facility] HEMATOLOGY Hgb 9.2 g/dL 12.0 - 16.0 03/09/2018 [facility] Hct 27.1 % 36.0 - 48.0 03/09/2018 [facility] MCV 86.6 fL 80.0 - 98.0 03/09/2018 [facility] MCH 29.5 pg 27.0 - 31.0 03/09/2018 [facility] MCHC 34.0 g/dL 32.0 - 36.0 03/09/2018 [facility] RDW 16.3 % 11.5 - 14.5 03/09/2018 [facility] WBC 7.9 K/CMM 3.7 - 10.4 03/09/2018 [facility] RBC 3.12 M/CMM 4.20 - 5.40 03/09/2018 [facility] BLOOD BANK RESULTS RBC product Product available 1 (03/07/18 6:22 AM) 03/07/2018 Result Comment: 03/07/2018 07:20 GE called to shraddha 03/07/2018 07:20 [facility] Monocytes # 1.5 K/CMM 0.0 - 0.8 03/06/2018 [facility] Monocytes 12.1 % 2.0 - 12.0 03/06/2018 [facility] Lymphocytes # 1.1 K/CMM 1.0 - 5.5 03/06/2018 [facility] Segs-Bands # 10.0 K/CMM 1.5 - 8.1 03/06/2018 [facility] Basophils 0.3 % 0.0 - 1.0 03/06/2018 [facility] Lymphocytes 8.8 % 20.0 - 40.0 03/06/2018 [facility] Segs 78.8 % 45.0 - 75.0 03/06/2018 [facility] Hip 2/3 views uni w pelvis DX [...] again evident. There is generalized osteopenia. SL: [id number] 03/06/2018 - - Read by: Jose Sullivan [...] again evident. There is generalized osteopenia. SL: [id number] 03/06/2018 - - Read by: Jose Sullivan MD Dictated Date/time: 03/06/18 10:01 Electronically Signed by: Jose Sullivan MD 03/06/18 10:04 FINAL REPORT [facility] Hip 2/3 views uni w pelvis DX Hip 2/3 views uni w pelvis DX Patient Name: NICK CURRIE : 1930; Age: 87 years y/o Female MR: [id number] * LEFT HIP, intraoperative, History: Comminuted intra-articular [...] Casey Norton MD 03/05/18 20:19 FINAL REPORT [facility] BLOOD BANK RESULTS Antibody Scrn Negative (03/05/18 8:37 AM) 03/05/2018 [facility] BLOOD BANK RESULTS ABO/Rh B POS 03/05/2018 [facility] CHEM PANEL Total Protein 6.3 g/dL 6.4 - 8.4 03/05/2018 [facility] CHEM PANEL Albumin Lvl 3.0 g/dL 3.5 - 5.0 03/05/2018 [facility] CHEM PANEL Alk Phos 57 unit/L 39 - 136 03/05/2018 [facility] CHEM PANEL Bili Total 0.3 mg/dL 0.2 - 1.3 03/05/2018 [facility] CHEM PANEL ALT 12 unit/L 0 - 65 03/05/2018 [facility] CHEM PANEL AST 14 unit/L 0 - 37 03/05/2018 [facility] CHEM PANEL B/C Ratio 17 6 - 25 03/05/2018 [facility] CHEM PANEL A/G Ratio 0.9 0.7 - 1.6 03/05/2018 [facility] CHEM PANEL Globulin 3.3 g/dL 2.7 - 4.2 03/05/2018 [facility] CHEM PANEL Magnesium Lvl 2.2 mg/dL 1.8 - 2.4 03/05/2018 [facility] HEMATOLOGY Basophils 0.3 % 0.0 - 1.0 03/05/2018 [facility] HEMATOLOGY Eosinophils 0.1 % 0.0 - 4.0 03/05/2018 [facility] HEMATOLOGY Segs-Bands # 8.2 K/CMM 1.5 - 8.1 03/05/2018 [facility] HEMATOLOGY Lymphocytes # 1.0 K/CMM 1.0 - 5.5 03/05/2018 [facility] HEMATOLOGY Monocytes # 0.7 K/CMM 0.0 - 0.8 03/05/2018 [facility] HEMATOLOGY Segs 82.3 % 45.0 - 75.0 03/05/2018 [facility] HEMATOLOGY Monocytes 7.3 % 2.0 - 12.0 03/05/2018 [facility] HEMATOLOGY Lymphocytes 10.0 % 20.0 - 40.0 03/05/2018 [facility] HEMATOLOGY PT 13.1 s 12.0 - 14.7 03/05/2018 [facility] INR 0.99 0.85 - 1.17 03/05/2018 [facility] PTT 28.3 s 22.9 - 35.8 03/05/2018 [facility] HEMATOLOGY Eosinophils # 0.1 K/CMM 0.0 - 0.5 03/05/2018 [facility] HEMATOLOGY Monocytes # 0.7 K/CMM 0.0 - 0.8 03/05/2018 [facility] HEMATOLOGY Segs-Bands # 7.9 K/CMM 1.5 - 8.1 03/05/2018 [facility] Basophils 0.5 % 0.0 - 1.0 03/05/2018 [facility] Lymphocytes # 1.1 K/CMM 1.0 - 5.5 03/05/2018 [facility] Lymphocytes 11.2 % 20.0 - 40.0 03/05/2018 [facility] Segs 80.1 % 45.0 - 75.0 03/05/2018 [facility] Eosinophils 0.7 % 0.0 - 4.0 03/05/2018 [facility] Monocytes 7.5 % 2.0 - 12.0 03/05/2018 [facility] Chest 1view DX Chest 1view DX Clinical [...] radiographic evidence of acute cardiopulmonary disease. SL: [id number] 03/04/2018 - - Read by: Kendal Green MD Dictated Date/time: 03/04/18 22:11 Electronically Signed by: Kendal Green MD 03/04/18 22:11 FINAL REPORT [facility] Hip 2/3 views uni w pelvis DX [...] Intertrochanteric fracture of the left femur. SL: [id number] 03/04/2018 - - Read by: Tonia Dunn MD Dictated Date/time: 03/04/18 22:10 Electronically Signed by: Tonia Dunn MD 03/04/18 22:11 FINAL REPORT [facility] Femur series DX Femur series DX Patient Name: INCK CURRIE : 1930; Age: 87 years y/o Female MR: [id number] Study: 4 view examination of the left [...] Neymar Willard MD 03/04/18 22:14 FINAL REPORT [facility] Chest 2 views DX Chest 2 views [...] Hg) 117 05/14/2018 [facility]: [facility] [place] [facility] Diastolic (mm Hg) 95 05/14/2018 SN[facility]: [facility] [place] [facility] Heart Rate 71 {beats}/min 05/14/2018 SN[facility]: [facility] [place] [facility] Systolic (mm Hg) 120 05/13/2018 [facility]: [facility] [place] [facility] [place] Diastolic (mm Hg) 63 05/13/2018 SN[facility]: [facility] [place] [place] Heart Rate 66 {beats}/min 05/13/2018 [facility]: [facility] [place] [place] Systolic (mm Hg) 129 05/12/2018 [facility]: [facility] [place] [facility] [place] Diastolic (mm Hg) 60 05/12/2018 [facility]: [facility] [place] Heart Rate 61 {beats}/min 05/12/2018 [facility]: [facility] Systolic (mm Hg) 140 05/12/2018 [facility]: [facility] [place] [facility] [place] Diastolic (mm Hg) 98 05/12/2018 [facility]: [facility] [place] [facility] [place] Heart Rate 79 {beats}/min 05/12/2018 [facility]: [facility] [place] [facility] [place] Systolic (mm Hg) 154 05/11/2018 [facility]: [facility] [place] Diastolic (mm Hg) 71 05/11/2018 [facility]: [facility] [place] [facility] [place] Heart Rate 60 {beats}/min 05/11/2018 [facility]: [facility] [place] [facility] [place] Systolic (mm Hg) 131 05/11/2018 [facility]: [facility] [place] [facility] [place] Diastolic (mm Hg) 70 05/11/2018 [facility]: [facility] [place] [facility] [place] Heart Rate 67 {beats}/min 05/11/2018 [facility]: [facility] [place] [facility] [place] Systolic (mm Hg) 116 05/10/2018 [facility]: [facility] [place] [facility] [place] Diastolic (mm Hg) 63 05/10/2018 [facility]: [facility] [place] [facility] [place] Heart Rate 60 {beats}/min 05/10/2018 [facility]: [facility] [place] [facility] [place] Systolic (mm Hg) 118 05/09/2018 [facility]: [facility] [place] [facility] [place] Diastolic (mm Hg) 96 05/09/2018 [facility]: [facility] [place] [facility] [place] Heart Rate 62 {beats}/min 05/09/2018 [facility]: [facility] [place] [facility] [place] Systolic (mm Hg) 150 05/09/2018 [facility]: [facility] [place] [facility] [place] Diastolic (mm Hg) 66 05/09/2018 [facility]: [facility] [place] [facility] [place] Heart Rate 66 {beats}/min 05/09/2018 [facility]: [facility] [place] [facility] [place] Systolic (mm Hg) 128 05/08/2018 [facility]: [facility] [place] [facility] [place] Diastolic (mm Hg) 62 05/08/2018 [facility]: [facility] [place] [facility] Heart Rate 69 {beats}/min 05/08/2018 [facility]: [facility] [place] [facility] Systolic (mm Hg) 144 05/07/2018 [facility]: [facility] [place] [facility] [place] Diastolic (mm Hg) 78 05/07/2018 [facility]: [facility] [place] [facility] [place] Heart Rate 64 {beats}/min 05/07/2018 [facility]: [facility] [place] [facility] [place] Height 62 05/06/2018 [facility]: [facility] [place] [facility] [place] Systolic (mm Hg) 124 05/06/2018 [facility]: [facility] [place] [facility] [place] Diastolic (mm Hg) 68 05/06/2018 [facility]: [facility] [place] [facility] [place] Heart Rate 65 {beats}/min 05/06/2018 [facility]: [facility] [place] [facility] [place] Systolic (mm Hg) 117 05/06/2018 [facility]: [facility] [place] [facility] [place] Diastolic (mm Hg) 62 05/06/2018 [facility]: [facility] [place] [facility] [place] Heart Rate 77 {beats}/min 05/06/2018 [facility]: [facility] [place] [facility] [place] Systolic (mm Hg) 131 05/05/2018 [facility] [place] [facility] [place] Diastolic (mm Hg) 60 05/05/2018 [facility]: [facility] [place] [facility] [place] Heart Rate 61 {beats}/min 05/05/2018 [facility]: [facility] [place] [facility] [place] Systolic (mm Hg) 134 05/05/2018 [facility]: [facility] [place] [facility] [place] Diastolic (mm Hg) 62 05/05/2018 [facility]: [facility] [place] [facility] [place] Heart Rate 88 {beats}/min 05/05/2018 [facility]: [facility] [place] [facility] [place] Systolic (mm Hg) 129 05/04/2018 [facility]: [facility] [place] [facility] [place] Diastolic (mm Hg) 65 05/04/2018 [facility]: [facility] [place] [facility] [place] Heart Rate 60 {beats}/min 05/04/2018 [facility]: [facility] [place] [facility] [place] Systolic (mm Hg) 120 05/04/2018 [facility]: [facility] [place] [facility] [place] Diastolic (mm Hg) 63 05/04/2018 [facility]: [facility] [place] [facility] [place] Heart Rate 67 {beats}/min 05/04/2018 [facility]: [facility] [place] [facility] [place] Systolic (mm Hg) 131 05/03/2018 [facility]: [facility] [place] [facility] [place] Diastolic (mm Hg) 64 05/03/2018 [facility]: [facility] [place] [facility] [place] Heart Rate 61 {beats}/min 05/03/2018 [facility]: [facility] [place] [facility] [place] Systolic (mm Hg) 119 05/03/2018 [facility]: [facility] [place] [facility] [place] Diastolic (mm Hg) 63 05/03/2018 [facility]: [facility] [place] [facility] [place] Heart Rate 72 {beats}/min 05/03/2018 [facility]: [facility] [place] [facility] [place] Systolic (mm Hg) 138 05/02/2018 [facility]: [facility] [place] [facility] [place] Diastolic (mm Hg) 76 05/02/2018 [facility]: [facility] [place] [facility] [place] Heart Rate 80 {beats}/min 05/02/2018 [facility]: [facility] [place] [facility] Systolic (mm Hg) 140 05/01/2018 [facility]: [facility] [place] [facility] [place] Diastolic (mm Hg) 67 05/01/2018 [facility]: [facility] [place] [facility] [place] Heart Rate 82 {beats}/min 05/01/2018 [facility]: [facility] [place] [facility] [place] Systolic (mm Hg) 133 05/01/2018 [facility]: [facility] [place] [facility] [place] Diastolic (mm Hg) 65 05/01/2018 [facility]: [facility] [place] [facility] [place] Heart Rate 83 {beats}/min 05/01/2018 [facility]: [facility] [place] [facility] [place] Systolic (mm Hg) 136 04/30/2018 [facility]: [facility] [place] [facility] [place] Diastolic (mm Hg) 67 04/30/2018 [facility]: [facility] [place] [facility] Heart Rate 78 {beats}/min 04/30/2018 [facility]: [facility] [place] [facility] [place] Systolic (mm Hg) 147 04/30/2018 [facility]: [facility] [place] [facility] Diastolic (mm Hg) 60 04/30/2018 [facility]: [facility] [place] [facility] Heart Rate 73 {beats}/min 04/30/2018 [facility]: [facility] [place] [facility] [place] Systolic (mm Hg) 149 04/29/2018 [facility]: [facility] [place] [facility] Diastolic (mm Hg) 70 04/29/2018 [facility]: [facility] [place] [facility] [place] Heart Rate 66 {beats}/min 04/29/2018 [facility]: [facility] [place] [facility] [place] Systolic (mm Hg) 117 04/29/2018 [facility]: [facility] [place] [facility] [place] Diastolic (mm Hg) 64 04/29/2018 [facility]: [facility] [place] [facility] [place] Heart Rate 71 {beats}/min 04/29/2018 [facility]: [facility] [place] [facility] [place] Systolic (mm Hg) 118 04/29/2018 [facility]: [facility] [place] [facility] [place] Diastolic (mm Hg) 70 04/29/2018 [facility]: [facility] [place] [facility] [place] Heart Rate 62 {beats}/min 04/29/2018 [facility]: [facility] [place] [facility] [place] Weight 122 04/28/2018 [facility]: [facility] [place] [facility] [place] Systolic (mm Hg) 127 04/28/2018 [facility]: [facility] [place] [facility] [place] Diastolic (mm Hg) 63 04/28/2018 [facility]: [facility] [place] [facility] [place] Heart Rate 78 {beats}/min 04/28/2018 [facility]: [facility] [place] [facility] [place] Systolic (mm Hg) 148 04/28/2018 [facility]: [facility] [place] [facility] [place] Diastolic (mm Hg) 68 04/28/2018 [facility]: [facility] [place] [facility] [place] Temperature Oral (F) 97.8 F 04/28/2018 [facility]: [facility] [place] [facility] [place] Heart Rate 70 {beats}/min 04/28/2018 [facility]: [facility] [place] [facility] [place] Heart Rate 85 04/28/2018 [facility] Systolic (mm Hg) 150 04/28/2018 [facility] Diastolic (mm Hg) 76 04/28/2018 [facility] Temperature Oral (F) 98.3 F 04/28/2018 [facility] Systolic (mm Hg) 152 04/27/2018 [facility] Diastolic (mm Hg) 71 04/27/2018 [facility] Respitory Rate 18 04/27/2018 [facility] Heart Rate 70 04/27/2018 [facility] Temperature Oral (F) 98.5 F 04/27/2018 [facility] Respitory Rate 18 04/27/2018 [facility] Heart Rate 65 04/27/2018 [facility] Temperature Oral (F) 97.6 F 04/27/2018 [facility] Systolic (mm Hg) 129 04/27/2018 [facility] Diastolic (mm Hg) 76 04/27/2018 [facility] Respitory Rate 18 04/27/2018 [facility] BMI Calculated 24.01 04/23/2018 [facility] Weight 59.545 04/23/2018 [facility] Height 157.48 cm 04/23/2018 [facility] Height 152.4 cm 04/22/2018 [facility] BMI Calculated 24.46 04/22/2018 [facility] Weight 56.818 04/22/2018 [facility] Respitory Rate 18 04/13/2018 [facility] Heart Rate 64 04/13/2018 [facility] Systolic (mm Hg) 139 04/13/2018 [facility] Diastolic (mm Hg) 58 04/13/2018 [facility] Temperature Oral (F) 98.4 F 04/13/2018 [facility] Systolic (mm Hg) 153 04/13/2018 [facility] Diastolic (mm Hg) 63 04/13/2018 [facility] Systolic (mm Hg) 166 04/13/2018 [facility] Diastolic (mm Hg) 52 04/13/2018 [facility] Heart Rate 62 04/13/2018 [facility] Temperature Oral (F) 98.1 F 04/13/2018 [facility] Respitory Rate 16 04/13/2018 [facility] Systolic (mm Hg) 132 03/31/2018 [facility]: [facility] [place] [facility] [place] Diastolic (mm Hg) 69 03/31/2018 [facility]: [facility] [place] [facility] [place] Heart Rate 73 {beats}/min 03/31/2018 [facility]: [facility] [place] [facility] [place] Systolic (mm Hg) 131 03/30/2018 [facility]: [facility] [place] [facility] [place] Diastolic (mm Hg) 66 03/30/2018 [facility]: [facility] [place] [facility] [place] Heart Rate 68 {beats}/min 03/30/2018 [facility]: [facility] [place] [facility] [place] Systolic (mm Hg) 119 03/30/2018 [facility]: [facility] [place] [facility] [place] Diastolic (mm Hg) 57 03/30/2018 [facility]: [facility] [place] [facility] Heart Rate 69 {beats}/min 03/30/2018 [facility]: [facility] [place] [facility] [place] Systolic (mm Hg) 128 03/29/2018 [facility]: [facility] [place] [facility] [place] Diastolic (mm Hg) 67 03/29/2018 [facility]: [facility] [place] [facility] [place] Heart Rate 72 {beats}/min 03/29/2018 [facility]: [facility] [place] [facility] [place] Systolic (mm Hg) 131 03/29/2018 [facility]: [facility] [place] [facility] [place] Diastolic (mm Hg) 64 03/29/2018 [facility]: [facility] [place] [facility] Heart Rate 66 {beats}/min 03/29/2018 [facility]: [facility] [place] [facility] Systolic (mm Hg) 121 03/28/2018 [facility]: [facility] [place] [facility] Diastolic (mm Hg) 60 03/28/2018 [facility]: [facility] [place] [facility] Heart Rate 67 {beats}/min 03/28/2018 [facility]: [facility] [place] [facility] Systolic (mm Hg) 112 03/28/2018 [facility]: [facility] [place] [facility] Diastolic (mm Hg) 60 03/28/2018 [facility]: [facility] [place] [facility] Heart Rate 74 {beats}/min 03/28/2018 [facility]: [facility] [place] [facility] Systolic (mm Hg) 135 03/26/2018 [facility]: [facility] [place] [facility] Diastolic (mm Hg) 64 03/26/2018 [facility]: [facility] [place] [facility] Heart Rate 70 {beats}/min 03/26/2018 [facility]: [facility] [place] [facility] Systolic (mm Hg) 110 03/26/2018 [facility]: [facility] [place] [facility] Diastolic (mm Hg) 58 03/26/2018 [facility]: [facility] [place] [facility] Heart Rate 71 {beats}/min 03/26/2018 [facility]: [facility] [place] [facility] [place] Systolic (mm Hg) 112 03/25/2018 [facility]: [facility] [place] [facility] [place] Diastolic (mm Hg) 60 03/25/2018 [facility]: [facility] [place] [facility] Heart Rate 75 {beats}/min 03/25/2018 [facility]: [facility] [place] [facility] Systolic (mm Hg) 126 03/25/2018 [facility] [place] [facility] [place] Diastolic (mm Hg) 81 03/25/2018 [facility]: [facility] [place] [facility] Heart Rate 76 {beats}/min 03/25/2018 [facility]: [facility] [place] [facility] [place] Systolic (mm Hg) 125 03/24/2018 [facility]: [facility] [place] [facility] [place] Diastolic (mm Hg) 60 03/24/2018 [facility]: [facility] [place] [facility] Heart Rate 72 {beats}/min 03/24/2018 [facility]: [facility] [place] [facility] Systolic (mm Hg) 136 03/24/2018 [facility]: [facility] [place] [facility] Diastolic (mm Hg) 61 03/24/2018 [facility]: [facility] [place] [facility] Heart Rate 83 {beats}/min 03/24/2018 [facility]: [facility] [place] [facility] Systolic (mm Hg) 115 03/23/2018 [facility]: [facility] [place] [facility] Diastolic (mm Hg) 64 03/23/2018 [facility]: [facility] [place] [facility] [place] Heart Rate 76 {beats}/min 03/23/2018 [facility]: [facility] [place] [facility] [place] Systolic (mm Hg) 113 03/23/2018 [facility] [place] [facility] [place] Diastolic (mm Hg) 57 03/23/2018 [facility] [place] [facility] Heart Rate 74 {beats}/min 03/23/2018 [facility] [place] [facility] Systolic (mm Hg) 110 03/22/2018 [facility] [place] [facility] Diastolic (mm Hg) 60 03/22/2018 [facility] [place] [facility] Heart Rate 73 {beats}/min 03/22/2018 [facility]: [facility] [place] [facility] Systolic (mm Hg) 124 03/22/2018 [facility]: [facility] [place] [facility] Diastolic (mm Hg) 60 03/22/2018 [facility] [place] [facility] Heart Rate 81 {beats}/min 03/22/2018 [facility] [place] [facility] Systolic (mm Hg) 126 03/21/2018 [facility] [place] [facility] Diastolic (mm Hg) 66 03/21/2018 [facility] [place] [facility] Heart Rate 78 {beats}/min 03/21/2018 [facility] [place] [facility] Systolic (mm Hg) 120 03/19/2018 [facility]: [facility] [place] [facility] Diastolic (mm Hg) 60 03/19/2018 [facility]: [facility] [place] [facility] Heart Rate 70 {beats}/min 03/19/2018 [facility] [place] [facility] Systolic (mm Hg) 129 03/19/2018 [facility] [place] [facility] Diastolic (mm Hg) 66 03/19/2018 [facility] [place] [facility] Heart Rate 73 {beats}/min 03/19/2018 [facility] [place] [facility] Systolic (mm Hg) 133 03/18/2018 [facility] [place] [facility] Diastolic (mm Hg) 75 03/18/2018 [facility]: [facility] [place] [facility] Heart Rate 76 {beats}/min 03/18/2018 [facility]: [facility] [place] [facility] Systolic (mm Hg) 112 03/18/2018 [facility] [place] [facility] [place] Diastolic (mm Hg) 67 03/18/2018 [facility]: [facility] [place] [facility] Heart Rate 78 {beats}/min 03/18/2018 [facility]: [facility] [place] [facility] Systolic (mm Hg) 125 03/17/2018 [facility] [place] [facility] Diastolic (mm Hg) 68 03/17/2018 [facility] [place] [facility] Heart Rate 82 {beats}/min 03/17/2018 [facility]: [facility] [place] [facility] Systolic (mm Hg) 116 03/17/2018 [facility] [place] [facility] [place] Diastolic (mm Hg) 60 03/17/2018 [facility] [place] [facility] Heart Rate 96 {beats}/min 03/17/2018 [facility]: [facility] [place] [facility] Systolic (mm Hg) 123 03/16/2018 [facility] [place] [facility] [place] Diastolic (mm Hg) 60 03/16/2018 [facility] [place] [facility] [place] Heart Rate 80 {beats}/min 03/16/2018 [facility] [place] [facility] [place] Systolic (mm Hg) 131 03/16/2018 [facility] [place] [facility] [place] Diastolic (mm Hg) 61 03/16/2018 [facility] [place] [facility] [place] Heart Rate 84 {beats}/min 03/16/2018 [facility] [place] [facility] [place] Weight 128 03/16/2018 [facility] [place] [facility] Height 62 03/16/2018 [facility] [place] [facility] Systolic (mm Hg) 125 03/15/2018 [facility]: [facility] [place] [facility] Diastolic (mm Hg) 68 03/15/2018 [facility] [place] [facility] Heart Rate 75 {beats}/min 03/15/2018 [facility] [place] [facility] Systolic (mm Hg) 114 03/15/2018 [facility] [place] [facility] Diastolic (mm Hg) 84 03/15/2018 [facility] [place] [facility] Heart Rate 86 {beats}/min 03/15/2018 [facility] [place] [facility] Systolic (mm Hg) 133 03/14/2018 [facility] [place] [facility] Diastolic (mm Hg) 71 03/14/2018 [facility] [place] [facility] Heart Rate 80 {beats}/min 03/14/2018 [facility] [place] [facility] Systolic (mm Hg) 129 03/14/2018 [facility] [place] [facility] Diastolic (mm Hg) 60 03/14/2018 [facility]: [facility] [place] [facility] Heart Rate 84 {beats}/min 03/14/2018 [facility] [place] [facility] Systolic (mm Hg) 130 03/14/2018 [facility] [place] [facility] Diastolic (mm Hg) 68 03/14/2018 [facility] [place] [facility] Heart Rate 78 {beats}/min 03/14/2018 [facility] [place] [facility] Systolic (mm Hg) 146 03/13/2018 [facility] [place] [facility] Diastolic (mm Hg) 58 03/13/2018 [facility] [place] [facility] Heart Rate 81 {beats}/min 03/13/2018 [facility] [place] [facility] Systolic (mm Hg) 131 03/12/2018 [facility] [place] [facility] Diastolic (mm Hg) 72 03/12/2018 [facility] [place] [facility] Heart Rate 68 {beats}/min 03/12/2018 [facility] [place] [facility] Systolic (mm Hg) 135 03/12/2018 [facility] [place] [facility] Diastolic (mm Hg) 66 03/12/2018 [facility] [place] [facility] Heart Rate 75 {beats}/min 03/12/2018 [facility]: [facility] [place] [facility] Systolic (mm Hg) 132 03/12/2018 [facility] [place] [facility] Diastolic (mm Hg) 78 03/12/2018 [facility] [place] [facility] Temperature Oral (F) 97.6 F 03/12/2018 [facility]: [facility] [place] [facility] Respitory Rate 18 03/12/2018 [facility] [place] [facility] Heart Rate 76 {beats}/min 03/12/2018 [facility] [place] [facility] Systolic (mm Hg) 128 03/11/2018 [facility] [place] [facility] Diastolic (mm Hg) 60 03/11/2018 [facility] [place] [facility] Heart Rate 84 {beats}/min 03/11/2018 [facility]: [facility] [place] [facility] Heart Rate 78 03/11/2018 [facility] Respitory Rate 16 03/11/2018 [facility] Systolic (mm Hg) 109 03/11/2018 [facility] Diastolic (mm Hg) 64 03/11/2018 [facility] Temperature Oral (F) 98.4 F 03/11/2018 [facility] Systolic (mm Hg) 113 03/11/2018 [facility] Diastolic (mm Hg) 64 03/11/2018 [facility] Respitory Rate 16 03/11/2018 [facility] Heart Rate 74 03/11/2018 [facility] Temperature Oral (F) 97.9 F 03/11/2018 [facility] Systolic (mm Hg) 109 03/11/2018 [facility] Diastolic (mm Hg) 65 03/11/2018 [facility] Respitory Rate 16 03/11/2018 [facility] Heart Rate 76 03/11/2018 [facility] Temperature Oral (F) 98.0 F 03/11/2018 [facility] Height 62 03/09/2018 [facility]: [facility] [place] [facility] Weight 128 03/09/2018 [facility] [place] [facility] Weight 60.909 03/05/2018 [facility] BMI Calculated 24.56 03/05/2018 [facility] Height 157.48 cm 03/05/2018 [facility] Encounters Location Location Details Encounter Type Encounter Number Reason For Visit Attending Provider ADM Date DC Date Status Source [facility] [place] [facility] [id number] Afshin Marie 11/28/2015 11/29/2015 [facility] [place] [facility] [place] [facility] [id number] Afshin Marie 04/21/2016 04/22/2016 [facility] [place] [facility] [place] [facility] [id number] Afshin Marie 08/04/2017 08/05/2017 [facility] [place] [facility] Inpatient [id number] Yoni Ann 03/05/2018 03/11/2018 [facility] Emergency [id number] John Bullard 04/13/2018 04/13/2018 [facility] Inpatient [id number] Shaun Wilkerson 04/22/2018 04/28/2018 [facility] Procedures Procedure Code Date Perfomer Comments Source ORIF - Open reduction and internal fixation of fracture [id number] 03/05/2018 [facility]
[2019-01-12] MEDS ORDERED: SODIUM CHLORIDE 0.9% 1000ML 1,000 ML IV STA (14:02)
[2019-01-12] MEDS ORDERED: CEFTRIAXONE SOD 1 GM/NS 50 ML 50 ML IV STA (14:02)
[2019-01-12] MEDS ORDERED: ONDANSETRON HCL INJ 2MG/ML 2ML 2 MG/ML VIAL IV STA (14:02)
[2019-01-12] MEDS ORDERED: TRAMADOL HCL 50 MG TAB PO ONE (14:15)
[2019-01-12 15:21] LABS: BILIRUBIN,URINE NEGATIVE (NEGATIVE); CLARITY,URINE SL CLOUDY (CLEAR); COLOR,URINE YELLOW (YELLOW); KETONES,URINE TRACE (NEGATIVE); LEUKOCYTE ESTERASE ,URINE TRACE (NEGATIVE); NITRITE,URINE NEGATIVE (NEGATIVE); PROTEIN,URINE DIPSTICK NEGATIVE (NEGATIVE); URINE UROBILINOGEN 0.2 mg/dL (0.2 - 1)
--- NOTE | 2019-01-12 15:27 | NUR ---
NOTIFIED KRISTOPHER YATES NP PATIENT REPORTS ALLERGIC REACTION TO TRAMADOL, HIVES PREVIOUSLY. MORPHINE 1MG IV ONCE ORDERED AT THIS TIME.
[2019-01-12 15:30] LABS: BACTERIA,URINE MANY /HPF
[2019-01-12] MEDS ORDERED: MORPHINE SULFATE 2 MG/ML SYR 1ML IV ONE (15:30)
[2019-01-12 15:31] LABS: EPITHELIAL CELLS,URINE FEW /LPF
[2019-01-12] MEDS ORDERED: MORPHINE SULFATE INJ 4 MG/ML INJ 1ML IV ONE (15:45)
[2019-01-12 15:48] LABS: BASOPHILS % 0.2 % (0.0-1.0); EOSINOPHILS # (AUTO) 0.1 (0.0-0.4); EOSINOPHILS % 0.7 % (0.0-6.0); HEMATOCRIT 40.5 % (34.2-44.1); HEMOGLOBIN 13.5 g/dL (12.0-16.0); LYMPHOCYTES # (AUTO) 1.9 (1.0-3.2); MEAN CORPUSCULAR HEMOGLOBIN 31.3 pg (28-32); MEAN CORPUSCULAR HGB CONC 33.3 g/dL (31-35); MONOCYTES # (AUTO) 0.7 (0.2-0.8); MONOCYTES % 8.6 % (4.4-11.3); NEUTROPHILS # (AUTO) 5.5 (2.1-6.9); NEUTROPHILS % 67.3 % (38.7-80.0); PLATELET COUNT 211 x10e3/uL (140-360); RED BLOOD COUNT 4.31 x10e6/uL (3.6-5.1); RED CELL DISTRIBUTION WIDTH 12.7 % (11.7-14.4)
[2019-01-12 15:55] LABS: INR 0.85; PROTHROMBIN TIME 12.1 seconds (11.9-14.5)
[2019-01-12 15:59] LABS: PARTIAL THROMBOPLASTIN TIME 20.7 seconds (23.8-35.5)
[2019-01-12 16:04] LABS: ALANINE AMINOTRANSFERASE 8 IU/L (0-55); ALBUMIN 3.7 g/dL (3.5-5.0); ALBUMIN/GLOBULIN RATIO 0.9 (0.8-2.0); ALKALINE PHOSPHATASE 69 IU/L (40-150); ANION GAP 13.9 mmol/L (8-16); BLOOD UREA NITROGEN 25 mg/dL (7-26); BUN/CREATININE RATIO 32 (6-25); CALCIUM 10.1 mg/dL (8.4-10.2); CARBON DIOXIDE 22 mmol/L (22-29); CHLORIDE 103 mmol/L (98-107); CREATINE KINASE 30 IU/L (29-168); CREATININE, SERUM 0.79 mg/dL (0.57-1.11); EST GLOMERULAR FILTRATION RATE > 60 ML/MIN (60-); GLUCOSE 101 mg/dL (74-118); POTASSIUM 3.9 mmol/L (3.5-5.1); SODIUM 135 mmol/L (136-145)
--- NOTE | 2019-01-12 17:08 | Diagnostic Imaging Report ---
EXAM: CT Abdomen and Pelvis WITHOUT contrast INDICATION: Stone protocol. COMPARISON: Report from CT abdomen/pelvis 09/28/2017, however the images are not available for review at the time of this dictation. TECHNIQUE: Abdomen and pelvis were scanned utilizing a multidetector helical scanner from the lung base to the pubic symphysis without administration of IV contrast. Absence of intravenous contrast decreases sensitivity for detection of focal lesions and vascular pathology. Coronal and sagittal reformations were obtained. Renal stone protocol was performed. IV CONTRAST: None. ORAL CONTRAST: Water RADIATION DOSE: Total DLP: 581 mGy*cm Dose modulation, iterative reconstruction, and/or weight based adjustment of the mA/kV was utilized to reduce the radiation dose to as low as reasonably achievable. COMPLICATIONS: None FINDINGS: LINES and TUBES: None. LOWER THORAX: There are patchy dependent opacities. There is a 5 mm subpleural solid nodular opacity in the left lower lobe on series 3, image 6. There is a subpleural nodular consolidative opacity within the lingula on image 9. There is a 6 mm solid nodule in the right lower lobe on image 4 and a 4 mm right middle lobe solid nodule on image 17. There are clustered 1 to 2 mm nodules in the dependent right middle lobe on image 31. There is mitral annular calcification. Partially seen coronary atherosclerosis. HEPATOBILIARY: No focal hepatic lesions. Mild dilatation of the common bile duct measuring up to 9 mm, which was previously described on prior CT. GALLBLADDER: No radio-opaque stones or sludge. No wall thickening. SPLEEN: No splenomegaly. PANCREAS: No focal masses or ductal dilatation. ADRENALS: No adrenal nodules KIDNEYS/URETERS: No hydronephrosis. No evidence of solid mass. No stones. Bilateral renal hypodensities are too small to characterize, but likely represent cysts. GI TRACT: No abnormal distention, wall thickening, or evidence of bowel obstruction. Extensive colonic diverticulosis without CT evidence of diverticulitis. PELVIC ORGANS/BLADDER: The bladder is partially decompressed. The uterus is absent. LYMPH NODES: No lymphadenopathy. VESSELS: There is moderate atherosclerotic disease in the aorta and major arterial branches. PERITONEUM / RETROPERITONEUM: No free air or fluid. BONES/SOFT TISSUES: There are multiple wedge compression deformities: Moderate to severe at the T12 level, moderate at the L1 and L4 levels, and mild at the L2 and L5 levels. Prior comparison studies noted multilevel compression deformities, however images are not available for review. There is diffuse osteopenia. No suspicious lytic or blastic lesions. Partially seen left femoral fixation hardware. IMPRESSION: No evidence of renal stone or hydronephrosis. Partially seen pulmonary nodules measuring up to 6 mm in the right lower lobe. Chest CT is suggested for further evaluation. Clustered nodules and patchy opacities in the dependent lower lungs likely infectious. Multilevel wedge compression deformities involving lower thoracic and lumbar spine. These are age indeterminate, but can be clinically correlated for point tenderness. Prior comparison studies noted multilevel compression deformities, however images are not available for review. Signed by: Dr. Nu Clark MD on 01/12/2019 5:04 PM
--- NOTE | 2019-01-12 17:11 | Diagnostic Imaging Report ---
EXAMINATION: CHEST SINGLE (PORTABLE) INDICATION: Pain in back. COMPARISON: Chest radiograph 11/30/[address] abdomen/pelvis 01/12/2019. FINDINGS: TUBES and LINES: None. LUNGS: Lungs are well inflated. Again noted is a subcentimeter nodular opacity projecting over the right lower lung. Additional pleural nodules noted on abdominal CT from 01/12/2019 are not well seen. Mild patchy opacity at the left lung base. PLEURA: No pleural effusion or pneumothorax. HEART AND MEDIASTINUM: The cardiomediastinal silhouette is unremarkable. BONES AND SOFT TISSUES: Loss of vertebral body height is noted in a lower thoracic vertebral body. Diffuse osteopenia. UPPER ABDOMEN: No free air under the diaphragm. IMPRESSION: Vertebral body height loss in a lower thoracic vertebral body. Please refer to same day abdominal CT for further details. Pulmonary nodule projecting over the right lower lung. Chest CT is suggested for further evaluation. Patchy opacity in the left lower lung, which could represent atelectasis or patchy pneumonia in the appropriate clinical setting. Signed by: Dr. Nu Clark MD on 01/12/2019 5:07 PM
[2019-01-12 18:18] VITALS: BP 157/62
== END 2019-01-12 18:29 | disposition home or self-care (01) ==
LOC: ER 13:45
DX: R53.1 Weakness (principal); J15.9 Unspecified bacterial pneumonia; N30.91 Cystitis, unspecified with hematuria; R91.8 Other nonspecific abnormal finding of lung field; K21.9 Gastro-esophageal reflux disease without esophagitis; Z86.73 Personal history of transient ischemic attack (TIA), and cerebral infarction without residual deficits
CPT/HCPCS: 36415; 71045; 74176; 80053; 81001; 82550; 82553; 83880; 84484; 85025; 85610; 85730; 87086; 93005; 99284; J0696; J2270; J2405; J7030

== ENCOUNTER 2019-05-27 23:40 | Inpatient (IN) | payer MEDICARE ==
[~2019-05-27] VITALS: Ht 157.5 cm; Wt 56.7 kg
[~2019-05-27 23:40] MED LIST changes: +AMIODARONE 900MG 500 ML IV SCH
[2019-05-27] MEDS ORDERED: ASPIRIN 81 MG CHEW TAB PO STA (23:45)
[2019-05-27] MEDS ORDERED: AMIODARONE HCL 150MG 100 ML IV ONE (23:45)
[2019-05-27] MEDS ORDERED: ENOXAPARIN SOD INJ 40 MG/0.4 ML SYR SC STA (23:45)
--- OUTSIDE RECORDS SUMMARY | 2019-05-27 23:45 | XMS REPORT | Continuity of Care Document ---
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 Phone [facility] [place] Information [employer] Unavailable Unavailable Problems Problem Status Onset Date Classification Date Reported Comments Source M62.81 MUSCLE WEAKNESS 04/28/2018 Diagnosis 05/14/2018 SNF: [facility] - [facility] Walking disability 04/27/2018 Diagnosis 05/14/2018 SNF: [facility] S22.089S UNSPECIFIED FRACTURE OF T11-T12 VERTEBRA, SEQUELA 04/27/2018 Diagnosis 05/14/2018 SNF: [facility] G89.29 OTHER CHRONIC PAIN 04/27/2018 Diagnosis 05/14/2018 SNF: [facility] Z91.81 HISTORY OF FALLING 04/27/2018 Diagnosis 05/14/2018 SNF: [facility] R53.1 WEAKNESS 04/27/2018 Diagnosis 05/14/2018 SNF: [facility] ACUTE UTI,PHYSICAL DECONDITIONING,WEAKNE Active 04/22/2018 [facility] Acute pain of right hip 04/13/2018 04/16/2018 [facility] BACK PAIN Active 04/13/2018 [facility] S72.92XS UNSPECIFIED FRACTURE OF LEFT FEMUR, SEQUELA 03/11/2018 Diagnosis 05/14/2018 SNF: [facility] W19.XXXS UNSPECIFIED FALL, SEQUELA 03/11/2018 Diagnosis 05/14/2018 SNF: [facility] I10 ESSENTIAL HYPERTENSION 03/11/2018 Diagnosis 05/14/2018 SNF: [facility] 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 03/11/2018 Diagnosis 05/14/2018 SNF: [facility] 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 03/11/2018 Diagnosis 05/14/2018 SNF: [facility] FX HIP Active 03/04/2018 [facility] INTRTROCHANTERIC FRACTURE OF FEMUR Active 03/04/2018 [facility] R91.8 - OTHER NONSPECIFIC ABNORMAL FIN Active 04/25/2016 RADHA Santiago D64.9 - "ANEMIA, UNSPECIFIED" Active 04/21/2016 RADHA Santiago DISPLACED INTERTROCHANTERIC FRACTURE OF Active [facility] URINARY TRACT INFECTION, SITE NOT SPECIF Active [facility] OTHER MALAISE Active [facility] WEAKNESS Active [facility] Medications Medication Details Route Status Patient Instructions Ordering Provider Order Date Source Ibuprofen Tablet 800 MG Give 1 tablet by mouth every 8 hours as needed for Pain Oral Active 04/29/2018 SNF: [facility] Nicolasa [facility] Cipro Tablet 500 MG Give 1 tablet by mouth two times a day for UTI for 10 Days Oral Active 04/28/2018 SNF: [facility] Tylenol with Codeine #3 Tablet 300-30 MG Give 1 tablet by mouth every 8 hours as needed for PAIN Oral Active 04/28/2018 SNF: [facility]a [facility] Protonix Tablet Delayed Release 40 MG Give 1 tablet by mouth one time a day for gerd Oral Active 04/28/2018 SNF: [facility] Nicolasa [facility] Metoprolol Tartrate Tablet Give 12.5 mg by mouth two times a day for HTN Hold for SBP less than 110, HR less than 60 Oral Active 04/28/2018 SNF: [facility] Lidocaine Patch 5 % Apply to hip topically one time a day for pain and remove per schedule External Active 04/28/2018 SNF: [facility] - Nicolasa [facility] Cefdinir Capsule 300 MG Give 1 capsule by mouth two times a day for UTI for 7 Days Oral Inactive 04/28/2018 SNF: [facility] Nicolasa [facility] Cyclobenzaprine HCl Tablet 5 MG Give 1 tablet by mouth every 8 hours as needed for Spasm Oral Active 04/28/2018 SNF: [facility]a [facility] cefdinir 300 MG Oral Capsule 300 mg=1 cap, PO, [id number], X 7 day, # 14 cap, 0 Refill(s), Pharmacy: [id number] Active 04/27/2018 [facility] DME Prescription See Instructions, MISC, ONCE, Use TSLO brace when upright., # 1 ea, 0 Refill(s) Active 04/27/2018 [facility] ocular lubricant solution Each Affected Eye, QID, PRN Dry Eyes, 0 Refill(s) Active 04/27/2018 [facility] Artificial Tears 1 drp, Route: Each Affected Eye, QID, Drug form: SOLN, PRN Dry Eyes, Start date: 04/27/18 13:11:00 CDT, Duration: 30 day, Stop date: 05/27/18 13:10:00 CDT Inactive 04/27/2018 [facility] Vantin 200 mg, Route: PO, Drug form: TAB, [id number], Dosing Weight 59.545, kg, Start date: 04/25/18 14:00:00 CDT, Duration: 14 day, Stop date: 05/09/18 2:00:00 CDT, ABX Indication: Urinary Tract Infection Inactive 04/25/2018 [facility] cefdinir 300 mg, 1 cap, Route: PO, Drug form: CAP, [id number], Start date: 04/25/18 14:00:00 CDT, Duration: 14 day, Stop date: 05/09/18 2:00:00 CDTNotes: (Same As: Omnicef) No Longer Active 04/25/2018 [facility] Rocephin 1 gm, Route: IVP, [id number], Dosing Weight 59.545, kg, Start date: 04/23/18 21:00:00 CDT, Duration: 7 day, Stop date: 04/29/18 21:00:00 CDT, ABX Indication: Genital Tract InfectionNotes: (Same As: Rocephin). Use with 100 mL NS and infuse over 30 min MEDICATION WASTE Product Size: 1000 mg Product Wasted: ___ mg No Longer Active 04/24/2018 [facility] Acetaminophen 325 MG / Hydrocodone Bitartrate 5 MG Oral Tablet [Lemont 5/325] 1 tab, Route: PO, Drug Form: TAB, Dosing Weight 59.545, kg, Q4H, PRN Pain Score 1-3, Start date: 04/23/18 15:42:00 CDT, Duration: 30 day, Stop date: 05/23/18 15:41:00 CDTNotes: (Same as: Lemont 325/5) Do not exceed 4gm/day of acetaminophen. No Longer Active 04/23/2018 [facility] Lovenox 40 mg, 0.4 mL, Route: SUB-Q, Drug form: INJ, [id number], Dosing Weight 59.545, kg, Start date: 04/23/18 9:00:00 CDT, Duration: 30 day, Stop date: 05/22/18 9:00:00 CDTNotes: (Same as: Lovenox) No Longer Active 04/23/2018 [facility] Protonix 40 mg, 1 tab, Route: PO, Drug form: ECTAB, Daily, Dosing Weight 59.545, kg, Start date: 04/23/18 9:00:00 CDT, Duration: 30 day, Stop date: 05/22/18 9:00:00 CDTNotes: Tablet should not be chewed or crushed. (Same as: Protonix) No Longer Active 04/23/2018 [facility] Lopressor 12.5 mg, 0.5 tab, Route: PO, Drug form: TAB, Q12H, Dosing Weight 59.545, kg, Start date: 04/23/18 9:00:00 CDT, Duration: 30 day, Stop date: 05/22/18 21:00:00 CDTNotes: (Same as: Lopressor) No Longer Active 04/23/2018 [facility] Lidocaine 0.05 MG/MG Transdermal Patch 1 patch, Route: TOP, Daily, Drug form: FILM, Start date: 04/23/18 9:00:00 CDT, Duration: 30 day, Stop date: 05/22/18 9:00:00 CDTNotes: Apply only once for up to 12 hours in a 24-hour period (12 hours on and 12 hours off). (Same as: Lidoderm) "Remove old patch before application of new patch" No Longer Active 04/23/2018 [facility] cyclobenzaprine 5 mg, 0.5 tab, Route: PO, Drug form: TAB, TID, Dosing Weight 59.545, kg, PRN Spasm, Start date: 04/23/18 4:27:00 CDT, Duration: 30 day, Stop date: 05/23/18 4:26:00 CDTNotes: (Same As: Flexeril) No Longer Active 04/23/2018 [facility] Acetaminophen 650 mg, 2 tab, Route: PO, Drug form: TAB, Q4H, Dosing Weight 59.545, kg, PRN Pain 1-3/Temp > 100.4 F, Start date: 04/22/18 23:07:00 CDT, Duration: 30 day, Stop date: 05/22/18 23:06:00 CDTNotes: Do not exceed 4 gm/day. (Same as: Tylenol) No Longer Active 04/23/2018 [facility] Ondansetron 4 mg, 2 mL, Route: IVP, Drug form: INJ, Q6H, Dosing Weight 59.545, kg, PRN Nausea & Vomiting, Start date: 04/22/18 23:07:00 CDT, Duration: 30 day, Stop date: 05/22/18 23:06:00 CDTNotes: (Same as: Zofran) MEDICATION WASTE Product Size: 4 mg Product Wasted: ___ mg No Longer Active 04/23/2018 [facility] Ceftriaxone 1 gm, Route: IVPB, ONCE, Dosing Weight 56.818, kg, Priority: STAT, Start date: 04/22/18 20:30:00 CDT, Stop date: 04/22/18 20:30:00 CDT, ABX Indication: Urinary Tract Infection Inactive 04/23/2018 [facility] Acetaminophen 325 MG / Hydrocodone Bitartrate 5 MG Oral Tablet [Lemont 5/325] 1 tab, Route: PO, Drug Form: TAB, Dosing Weight 60.909, kg, ONCE, STAT, Start date: 04/13/18 15:48:00 CDT, Stop date: 04/13/18 15:48:00 CDTNotes: (Same as: Lemont 325/5) Do not exceed 4gm/day of acetaminophen. Inactive 04/13/2018 [facility] Tylenol 975 mg, 3 tab, Route: PO, Drug form: TAB, ONCE, Dosing Weight 60.909, kg, Priority: STAT, Start date: 04/13/18 14:39:00 CDT, Stop date: 04/13/18 14:39:00 CDTNotes: Do not exceed 4 gm/day. (Same as: Tylenol) Inactive 04/13/2018 [facility] Ibuprofen 800 mg, 2 tab, Route: PO, Drug form: TAB, ONCE, Dosing Weight 60.909, kg, Priority: STAT, Start date: 04/13/18 14:39:00 CDT, Stop date: 04/13/18 14:39:00 CDTNotes: (Same as: Motrin) "Do Not Crush" Give with food. Inactive 04/13/2018 [facility] Cipro Tablet 500 MG Give 500 mg by mouth two times a day for diverticulitis needs stop date Oral Active 03/28/2018 SNF: [facility] MetroNIDAZOLE Tablet 500 MG Give 500 mg by mouth three times a day for diverticulitis needs stop date Oral Active 03/28/2018 SNF: [facility] Xarelto Tablet 10 MG Give 1 tablet by mouth one time a day related to UNSPECIFIED FRACTURE OF LEFT FEMUR, SEQUELA (S72.92XS) Oral Active 03/13/2018 SNF: [facility]endo[facility] Lidocaine Patch 5 % Apply to hip topically one time a day for pain and remove per schedule External Active 03/12/2018 SNF: [facility] Enoxaparin Sodium Solution 40 MG/0.4ML Inject 0.4 ml subcutaneously one time a day for Prophylactic for 2 Days Subcutaneous Active 03/12/2018 SNF: [facility] Levaquin Tablet 500 MG Give 1 tablet by mouth one time a day for Prophylactic for 7 Days Oral Active 03/12/2018 SNF: [facility] Metoprolol Tartrate Tablet Give 12.5 mg by mouth two times a day for HTN Hold for SBP less than 110, HR less than 60 Oral Active 03/11/2018 SNF: [facility]endo[facility] Cyclobenzaprine HCl Tablet 5 MG Give 1 tablet by mouth every 8 hours as needed for Spasm Oral Active 03/11/2018 SNF: [facility] Lemont Tablet 7.5-325 MG Give 1 tablet by mouth every 6 hours as needed for pain Oral Active 03/11/2018 SNF: [facility] Levofloxacin 500 MG Oral Tablet [Levaquin] 500 mg=1 tab, PO, Q24H, X 7 day, # 7 tab, 0 Refill(s) Active 03/11/2018 [facility] cyclobenzaprine 10 mg oral tablet 5 mg=0.5 tab, PO, TID, PRN Spasm, 0 Refill(s) Active 03/11/2018 [facility] metoprolol tartrate 25 mg oral tablet 12.5 mg=0.5 tab, PO, Q12H, 0 Refill(s) Active 03/11/2018 [facility] Potassium Chloride 40 mEq, 2 tab, Route: [...] Patient’s with feeding tube less than 14 Pakistani (Dobhoff, J-tube etc) and pediatric and patients. With food and full glass of water Inactive 03/11/2018 [facility] metoprolol tartrate 12.5 mg, 0.5 tab, Route: PO, Drug form: TAB, Q12H, Dosing Weight 60.909, kg, Start date: 03/11/18 9:00:00 CDT, Duration: 30 day, Stop date: 04/09/18 21:00:00 CDTNotes: (Same as: Lopressor) Inactive 03/11/2018 [facility] Melatonin 3 mg, 1 tab, Route: PO, Drug form: TAB, Bedtime, Dosing Weight 60.909, kg, PRN Sleep, Start date: 03/10/18 14:42:00 CDT, Duration: 30 day, Stop date: 04/09/18 14:41:00 CDTNotes: (Same as: Melatonin) No Longer Active 03/10/2018 [facility] Tylenol 650 mg, 2 tab, Route: PO, Drug form: TAB, Q6H, Dosing Weight 60.909, kg, PRN Pain Score 4-6, Start date: 03/10/18 14:42:00 CDT, Duration: 30 day, Stop date: 04/09/18 14:41:00 CDTNotes: Do not exceed 4 gm/day. (Same as: Tylenol) No Longer Active 03/10/2018 [facility] Zosyn 3.375 gm, Route: IVPB, [id number], Dosing Weight 60.909, kg, CrCl >=20 ml/min infuse over 4 hours, Start date: 03/09/18 20:00:00 CDT, Duration: 10 day, Stop date: 03/19/18 12:00:00 CDT, ABX Indication: Other (specify in Comments)Notes: (Same as: Zosyn) Dosing based on Piperacillin component MEDICATION WASTE Product Size: 3375 mg Product Wasted: ___ mg No Longer Active 03/10/2018 [facility] Lidocaine 0.05 MG/MG Transdermal Patch 1 patch, TOP, Daily, 0 Refill(s) Active 03/09/2018 [facility] Enoxaparin 40 mg=0.4 mL, SUB-Q, [id number], 0 Refill(s) Active 03/09/2018 [facility] metoprolol extended release 12.5 mg, 0.5 tab, Route: PO, Drug form: ERTAB, Q12H, Start date: 03/08/18 21:00:00 CDT, Duration: 30 day, Stop date: 04/07/18 9:00:00 CDTNotes: (Same as: Toprol XL) Do Not Crush No Longer Active 03/09/2018 [facility] metoprolol 25 mg oral tablet, extended release 25 mg=1 tab, PO, Daily, # 30 tab, 0 Refill(s) No Longer Active 03/08/2018 [facility] Acetaminophen 325 MG / Hydrocodone Bitartrate 7.5 MG Oral Tablet [Lemont 7.5/325] 1 tab, Route: PO, Drug Form: TAB, Dosing Weight 60.909, kg, Q6H, PRN Pain Score 4-6, Start date: 03/08/18 12:53:00 CDT, Duration: 30 day, Stop date: 04/07/18 12:52:00 CDTNotes: Same as Lemont 325-7.5mg Do not exceed 4gm/day of acetaminophen. No Longer Active 03/08/2018 [facility] Acetaminophen 325 MG / Hydrocodone Bitartrate 5 MG Oral Tablet [Lemont 5/325] 1 tab, Route: PO, Drug Form: TAB, Dosing Weight 60.909, kg, Q6H, PRN Pain Score 1-3, Start date: 03/07/18 17:26:00 CDT, Duration: 30 day, Stop date: 04/06/18 17:25:00 CDTNotes: (Same as: Lemont 325/5) Do not exceed 4gm/day of acetaminophen. No Longer Active 03/07/2018 [facility] Morphine 6 mg, 3 mL, Route: PO, Drug form: SOLN, Q4H, Dosing Weight 60.909, kg, PRN Pain Score 7-10, Start date: 03/07/18 17:26:00 CDT, Stop date: 04/06/18 17:25:00 CDTNotes: (Same as:MORPhine Sulfate) No Longer Active 03/07/2018 [facility] normal saline 0.9% IV 250 mL 250 mL, Rate: 30 ml/hr, Infuse over: 8.3 hr, Route: IV, Dosing Weight 60.909 kg, Total Volume: 250, Start date: 03/07/18 6:23:00 CDT, Duration: 1 day, Stop date: 03/08/18 6:22:00 CDT, 1.65, m2 No Longer Active 03/07/2018 [facility] remove patch Route: TOP, Bedtime, Drug form: ERFILM, Start date: 03/06/18 21:00:00 CDT, Duration: 30 day, Stop date: 04/04/18 21:00:00 CDTNotes: Remove patch 12 hours after application each day. No Longer Active 03/07/2018 [facility] Tylenol 1,000 mg, 2 tab, Route: PO, Drug form: TAB, TID, Dosing Weight 60.909, kg, Start date: 03/06/18 12:00:00 CDT, Duration: 30 day, Stop date: 04/05/18 6:00:00 CDTNotes: Max acetaminophen 4000 mg/day (4 gm/day). (Same as: Tylenol Extra Strength) No Longer Active 03/06/2018 [facility] pantoprazole 40 mg, 1 tab, Route: PO, Drug form: ECTAB, Daily, Dosing Weight 60.909, kg, Start date: 03/06/18 9:00:00 CDT, Duration: 30 day, Stop date: 04/04/18 9:00:00 CDTNotes: Tablet should not be chewed or cr ushed. (Same as: Protonix) No Longer Active 03/06/2018 [facility] Docusate Sodium 100 MG Oral Capsule 100 mg, 1 cap, Route: PO, Drug form: CAP, BID, Dosing Weight 60.909, kg, Start date: 03/06/18 9:00:00 CDT, Duration: 30 day, Stop date: 04/04/18 17:00:00 CDTNotes: (Same as: Colace) (Do Not Crush) No Longer Active 03/06/2018 [facility] Flexeril 5 mg, 0.5 tab, Route: PO, Drug form: TAB, TID, Dosing Weight 60.909, kg, PRN Spasm, Start date: 03/06/18 9:00:00 CDT, Duration: 30 day, Stop date: 04/05/18 8:59:00 CDTNotes: (Same As: Flexeril) No Longer Active 03/06/2018 [facility] Lidocaine 0.05 MG/MG Transdermal Patch 1 patch, Route: TOP, Daily, Drug form: FILM, Start date: 03/06/18 9:00:00 CDT, Duration: 30 day, Stop date: 04/04/18 9:00:00 CDTNotes: Apply only once for up to 12 hours in a 24-hour period (12 hours on and 12 hours off). (Same as: Lidoderm) "Remove old patch before application of new patch" No Longer Active 03/06/2018 [facility] Enoxaparin 40 mg, 0.4 mL, Route: SUB-Q, Drug form: INJ, [id number], Dosing Weight 60.909, kg, Start date: 03/06/18 9:00:00 CDT, Stop date: 04/03/18 9:00:00 CDTNotes: (Same as: Lovenox) No Longer Active 03/06/2018 [facility] Tylenol 1,000 mg, 2 tab, Route: PO, Drug form: TAB, Daily, Dosing Weight 60.909, kg, PRN Pain Score 4-6, Start date: 03/06/18 8:57:00 CDT, Duration: 30 day, Stop date: 04/05/18 8:56:00 CDTNotes: Max acetaminophen 4000 mg/day (4 gm/day). (Same as: Tylenol Extra Strength) No Longer Active 03/06/2018 [facility] Cefazolin 1 gm, Route: IVP, Q8H, Dosing Weight 60.909, kg, Start date: 03/06/18 1:00:00 CDT, Duration: 1 doses or times, Stop date: 03/06/18 1:00:00 CDT, ABX Indication: Surgical ProphylaxisNotes: (Same As: William Win) MEDICATION WASTE Product Size: 1000 mg Product Wasted: ___ mg Inactive 03/06/2018 [facility] Clindamycin 600 mg, 50 mL, Route: IVPB, Drug form: INJ, [id number], Dosing Weight 60.909, kg, Start date: 03/05/18 21:00:00 CDT, Duration: 1 doses or times, Stop date: 03/05/18 21:00:00 CDT, ABX Indication: Surgical Prophylaxis Inactive 03/06/2018 [facility] Labetalol 10 mg, Route: IVP, Q5Min, Dosing Weight 60.909, kg, PRN Elevated BP, Start date: 03/05/18 18:45:00 CDT, Duration: 5 doses or times, Stop date: Limited # of times Inactive 03/05/2018 [facility] Acetaminophen 1,000 mg, Route: PO, Drug form: TAB, ONCE, Dosing Weight 60.909, kg, PRN Pain Score 1-3, Start date: 03/05/18 18:45:00 CDT Inactive 03/05/2018 [facility] Hydralazine 10 mg, Route: IVP, Q20Min, Dosing Weight 60.909, kg, PRN Elevated BP, Start date: 03/05/18 18:45:00 CDT, Duration: 2 doses or times, Stop date: Limited # of times Inactive 03/05/2018 [facility] esmolol 10 mg, Route: IVP, Q5Min, Dosing Weight 60.909, kg, PRN Other -See Comment, Start date: 03/05/18 18:45:00 CDT, Duration: 5 doses or times, Stop date: Limited # of times Inactive 03/05/2018 [facility] Calcium Chloride 0.0014 MEQ/ML / Potassium Chloride 0.004 MEQ/ML / Sodium Chloride 0.103 MEQ/ML / Sodium Lactate 0.028 MEQ/ML Injectable Solution 1,000 mL, Rate: 125 ml/hr, Infuse over: 8 hr, Route: IV, Dosing Weight 60.909 kg, Total Volume: 1,000, Start date: 03/05/18 18:45:00 CDT, Duration: 30 day, Stop date: 04/04/18 18:44:00 CDT, 1.65, m2 Inactive 03/05/2018 [facility] Diphenhydramine 12.5 mg, Route: IVP, Drug form: INJ, Q6H, Dosing Weight 60.909, kg, PRN Itching, Start date: 03/05/18 18:45:00 CDT, Duration: 30 day, Stop date: 04/04/18 18:44:00 CDT Inactive 03/05/2018 [facility] Albuterol 0.83 MG/ML Inhalant Solution 2.49 mg, Route: NEB, Q20Min, Dosing Weight 60.909, kg, PRN Wheezing, Priority: STAT, Start date: 03/05/18 18:45:00 CDT, Duration: 30 day, Stop date: 04/04/18 18:44:00 CDT Inactive 03/05/2018 [facility] Flumazenil 0.2 mg, Route: IVP, PRN, Dosing Weight 60.909, kg, PRN Benzodiazepine Reversal, Initial dose, Start date: 03/05/18 18:45:00 CDT, Duration: 30 day, Stop date: 04/04/18 18:44:00 CDT Inactive 03/05/2018 [facility] Naloxone 0.4 mg, Route: IVP, Q2MIN, Dosing Weight 60.909, kg, PRN Narcotic Reversal, Start date: 03/05/18 18:45:00 CDT, Duration: 8 doses or times, Stop date: Limited # of times Inactive 03/05/2018 [facility] Hydromorphone 0.5 mg, Route: IVP, Q5Min, Dosing Weight 60.909, kg, PRN Pain Score 7-10, Start date: 03/05/18 18:45:00 CDT, Duration: 4 doses or times, Stop date: Limited # of times Inactive 03/05/2018 [facility] Fentanyl 50 microgram, Route: IVP, Q5Min, Dosing Weight 60.909, kg, PRN Pain Score 7-10, Priority: Routine, Start date: 03/05/18 18:45:00 CDT, Duration: 2 doses or times, Stop date: Limited # of times Inactive 03/05/2018 [facility] Morphine 4 mg, Route: IVP, Q5Min, Dosing Weight 60.909, kg, PRN Pain Score 7-10, Start date: 03/05/18 18:45:00 CDT, Duration: 3 doses or times, Stop date: Limited # of times Inactive 03/05/2018 [facility] Oxycodone 5 mg, Route: PO, Drug form: TAB, Q4H, Dosing Weight 60.909, kg, PRN Pain Score 4-6, Start date: 03/05/18 18:45:00 CDT, Duration: 30 day, Stop date: 04/04/18 18:44:00 CDT Inactive 03/05/2018 [facility] Meperidine 12.5 mg, Route: IVP, Q30Min, Dosing Weight 60.909, kg, PRN Other -See Comment, For shivering, Start date: 03/05/18 18:45:00 CDT, Duration: 2 doses or times, Stop date: Limited # of times Inactive 03/05/2018 [facility] Dexamethasone 4 mg, Route: IVP, ONCE, Dosing Weight 60.909, kg, PRN Nausea & Vomiting, Start date: 03/05/18 18:45:00 CDT Inactive 03/05/2018 [facility] Ondansetron 4 mg, Route: IVP, ONCE, Dosing Weight 60.909, kg, PRN Nausea & Vomiting, Start date: 03/05/18 18:45:00 CDT Inactive 03/05/2018 [facility] Dulcolax Laxative 5 mg, 1 tab, Route: PO, Drug form: ECTAB, Q24H, Dosing Weight 60.909, kg, PRN Constipation, Start date: 03/05/18 18:37:00 CDT, Duration: 30 day, Stop date: 04/04/18 18:36:00 CDTNotes: (Same As: Dulcolax , Correctol) (Do Not Crush) "Do Not Crush" No Longer Active 03/05/2018 [facility] Diphenhydramine 12.5 mg, 0.5 tab, Route: PO, Drug form: TAB, Q6H, Dosing Weight 60.909, kg, PRN Itching, Start date: 03/05/18 18:37:00 CDT, Duration: 30 day, Stop date: 04/04/18 18:36:00 CDT No Longer Active 03/05/2018 [facility] Al hydroxide/Mg hydroxide/simethicone 200 mg-200 mg-20 mg/5 mL oral suspension 30 ml, Route: PO, Drug Form: SUSP, Dosing Weight 60.909, kg, Q4H, PRN Indigestion, Start date: 03/05/18 18:37:00 CDT, Duration: 30 day, Stop date: 04/04/18 18:36:00 CDTNotes: (aluminum hydroxide-magnesium hyd- simethicone 476-432-27kg/5ml 30 ml ud GRISELDA) No Longer Active 03/05/2018 [facility] Lactated Ringers IV 1,000 mL 1,000 mL, Rate: 75 ml/hr, Infuse over: 13.3 hr, Route: IV, Dosing Weight 60.909 kg, Total Volume: 1,000, Start date: 03/05/18 18:37:00 CDT, Duration: 30 day, Stop date: 04/04/18 18:36:00 CDT, 1.65, m2 No Longer Active 03/05/2018 [facility] Acetaminophen 650 mg, 2 tab, Route: PO, Drug form: TAB, Q4H, Dosing Weight 60.909, kg, PRN Pain 1-3/Temp > 100.4 F, Start date: 03/05/18 18:37:00 CDT, Duration: 30 day, Stop date: 04/04/18 18:36:00 CDTNotes: Do not exceed 4 gm/day. (Same as: Tylenol) No Longer Active 03/05/2018 [facility] rocuronium (ANES) Route: IV, Drug form: INJ, ONCE, Stop date: 03/05/18 18:33:00 CDT Inactive 03/05/2018 [facility] fentaNYL (ANES) Route: IV, Drug form: INJ, ONCE, Stop date: 03/05/18 18:33:00 CDT Inactive 03/05/2018 [facility] ondansetron (ANES) Route: IV, Drug form: INJ, ONCE, Stop date: 03/05/18 18:33:00 CDT Inactive 03/05/2018 [facility] metoprolol (ANES) Route: IV, Drug form: INJ, ONCE, Stop date: 03/05/18 18:33:00 CDT Inactive 03/05/2018 [facility] dexamethasone (ANES) Route: IV, Drug form: INJ, ONCE, Stop date: 03/05/18 18:33:00 CDT Inactive 03/05/2018 [facility] glycopyrrolate (ANES) Route: IV, Drug form: INJ, ONCE, Stop date: 03/05/18 18:33:00 CDT Inactive 03/05/2018 [facility] neostigmine (ANES) Route: IV, Drug form: INJ, ONCE, Stop date: 03/05/18 18:33:00 CDT Inactive 03/05/2018 [facility] esmolol (ANES) Route: IV, Drug form: INJ, ONCE, Stop date: 03/05/18 18:33:00 CDT Inactive 03/05/2018 [facility] Amidate (ANES) Route: IV, Drug form: INJ, ONCE, Stop date: 03/05/18 18:33:00 CDT Inactive 03/05/2018 [facility] norepinephrine (ANES) Route: IV, Drug form: INJ, ONCE, Stop date: 03/05/18 18:03:00 CDT Inactive 03/05/2018 [facility] metoclopramide (ANES) Route: IV, Drug form: INJ, ONCE, Stop date: 03/05/18 18:03:00 CDT Inactive 03/05/2018 [facility] lidocaine (ANES) Route: IV, Drug form: INJ, ONCE, Stop date: 03/05/18 18:03:00 CDT Inactive 03/05/2018 [facility] fentaNYL (ANES) Route: IV, Drug form: INJ, ONCE, Stop date: 03/05/18 17:48:00 CDT Inactive 03/05/2018 [facility] cefOXitin (ANES) Route: IV, Drug form: INJ, ONCE, Stop date: 03/05/18 17:48:00 CDT Inactive 03/05/2018 [facility] propofol (ANES) Route: IV, Drug form: INJ, ONCE, Stop date: 03/05/18 17:48:00 CDT Inactive 03/05/2018 [facility] ceFAZolin (ANES) Route: IV, Drug form: INJ, ONCE, Stop date: 03/05/18 17:38:00 CDT Inactive 03/05/2018 [facility] midazolam (ANES) Route: IV, Drug form: SOLN, ONCE, Stop date: 03/05/18 17:33:00 CDT Inactive 03/05/2018 [facility] metoprolol tartrate 12.5 mg, 0.5 tab, Route: PO, Drug form: TAB, BID, Dosing Weight 60.909, kg, Start date: 03/05/18 17:00:00 CDT, Duration: 30 day, Stop date: 04/04/18 9:00:00 CDTNotes: (Same as: Lopressor) No Longer Active 03/05/2018 [facility] Lactated Ringers Injection IV (ANES) 1000 mL Route: IV, Total Volume: 1,000, Start date: 03/05/18 16:58:00 CDT, Stop date: 03/05/18 17:58:00 CDT Inactive 03/05/2018 [facility] Protonix 40 mg, 1 tab, Route: PO, Drug form: ECTAB, Before Dinner, Dosing Weight 60.909, kg, Start date: 03/05/18 16:30:00 CDT, Duration: 30 day, Stop date: 04/03/18 16:30:00 CDTNotes: Tablet should not be chewed or crushed. (Same as: Protonix) Inactive 03/05/2018 [facility] Hydralazine 10 mg, 0.5 mL, Route: IVP, Drug form: INJ, Q4H, Dosing Weight 60.909, kg, PRN Hypertension, Start date: 03/05/18 10:13:00 CDT, Duration: 30 day, Stop date: 04/04/18 10:12:00 CDTNotes: (Same as: Chichi pena) Push over 5 minutes No Longer Active 03/05/2018 [facility] Melatonin 3 mg, 1 tab, Route: PO, Drug form: TAB, Bedtime, Dosing Weight 60.909, kg, PRN Sleep, Start date: 03/05/18 10:13:00 CDT, Duration: 30 day, Stop date: 04/04/18 10:12:00 CDTNotes: (Same as: Melatonin) No Longer Active 03/05/2018 [facility] Streptococcus pneumoniae serotype 1 capsular antigen diphtheria [id number] protein conjugate vaccine / Streptococcus pneumoniae serotype 14 capsular antigen diphtheria [id number] protein conjugate vaccine / Streptococcus pneumoniae serotype 18C capsular antigen d 0.5 mL, Route: IM, Drug Form: INJ, Daily, Start date: 03/05/18 9:00:00 CDT, Duration: 1 doses or times, Stop date: 03/05/18 9:00:00 CDTNotes: Shake well prior to use (Same as: Prevnar 13) Inactive 03/05/2018 [facility] NURSE please update PT's HEIGHT in [facility] when possible NURSE please update PT's HEIGHT in [facility] when possible, 1, Drug form: MISC, Route: MISC, Q30Min, 03/05/18 8:00:00 CDT, Duration: 4 doses or times, Stop date: 03/05/18 9:30:00 CDT Inactive 03/05/2018 [facility] Ancef + sterile water 20 mL 2 gm, Route: IV, ONCE, Dosing Weight 60.909, kg, Start date: 03/05/18 7:49:00 CDT, Stop date: 03/05/18 7:49:00 CDT, Surgical Prophylaxis Only; For patients Notes: (Same As: Ancef, Kefzol) MEDICATION WASTE Product Size: 1000 mg Product Wasted: ___ mg Inactive 03/05/2018 [facility] hydromorphone 0.3 mg, 0.3 mL, Route: IV, Drug form: INJ, Q4H, PRN Pain Score 7-10, Start date: 03/05/18 5:00:00 CDT, Duration: 30 day, Stop date: 04/04/18 4:59:00 CDTNotes: Same as: Dilaudid No Longer Active 03/05/2018 [facility] metoprolol tartrate 25 mg, PO, BID, metoprolol 2mg 1/2 tab twice daily per medication bottle, 0 Refill(s) No Longer Active 03/05/2018 [facility] Protonix 40 mg, PO, Daily, # 30 tab, 0 Refill(s) Active 03/05/2018 [facility] Fentanyl 50 microgram, Route: IVP, ONCE, Dosing Weight 66.364, kg, Priority: STAT, Start date: 03/04/18 23:59:00 CDT, Stop date: 03/04/18 23:59:00 CDT No Longer Active 03/05/2018 [facility] Saline Flush 0.9% 10 ml, Route: IVP, Drug Form: INJ, Dosing Weight 66.364, kg, PRN, PRN Line Flush, Start date: 03/04/18 23:58:00 CDT, Duration: 30 day, Stop date: 04/03/18 23:57:00 CDTNotes: (Same as: BD Posiflush) No Longer Active 03/05/2018 [facility] Sodium Chloride 0.9% IV 1,000 mL 1,000 mL, Rate: 75 ml/hr, Infuse over: 13.3 hr, Route: IV, Dosing Weight 66.364 kg, Total Volume: 1,000, Start date: 03/04/18 23:58:00 CDT, Duration: 30 day, Stop date: 04/03/18 23:57:00 CDT No Longer Active 03/05/2018 [facility] Acetaminophen 325 MG / Hydrocodone Bitartrate 5 MG Oral Tablet 2 tab, Route: PO, Drug Form: TAB, Dosing Weight 66.364, kg, Q4H, PRN Pain Score 7-10, Start date: 03/04/18 23:58:00 CDT, Duration: 30 day, Stop date: 04/03/18 23:57:00 CDTNotes: (Same as: [place] 325/5) Do not exceed 4gm/day of acetaminophen. No Longer Active 03/05/2018 [facility] Morphine 2 mg, Route: IVP, Q4H, Dosing Weight 66.364, kg, PRN Pain Score 7-10, Start date: 03/04/18 23:58:00 CDT, Duration: 30 day, Stop date: 04/03/18 23:57:00 CDT No Longer Active 03/05/2018 [facility] Dilaudid 0.5 mg, 0.5 mL, Route: IVP, Drug form: INJ, ONCE, Dosing Weight 66.364, kg, Priority: STAT, Start date: 03/04/18 23:37:00 CDT, Stop date: 03/04/18 23:37:00 CDTNotes: Same as: Dilaudid No Longer Active 03/05/2018 [facility] Fentanyl 50 microgram, Route: IVP, ONCE, Dosing Weight 66.364, kg, Priority: STAT, Start date: 03/04/18 21:49:00 CDT, Stop date: 03/04/18 21:49:00 CDT Inactive 03/05/2018 [facility] Allergies, Adverse Reactions, Alerts Substance Category Reaction Severity Reaction type Status Date Reported Comments Source CODINE Assertion Drug allergy Active 01/10/2003 [facility] Tramadol 03/11/2018 [facility] Codeine 03/12/2018 [facility] Penicillin 03/12/2018 [facility] PCN Assertion Drug allergy Active [facility] traMADol Assertion Drug allergy Active [facility] Immunizations Immunization Date Given Site Status Last Updated Comments Source pneumococcal 13-valent vaccine 03/05/2018 Left deltoid completed [facility] Results Order Name Results Value Reference Range Date Interpretation Comments Source CHEM PANEL A/G Ratio 1.0 0.7 - 1.6 04/26/2018 [facility] CHEM PANEL AGAP 8.9 10.0 - 20.0 04/26/2018 [facility] CHEM PANEL Globulin 3.1 2.7 - 4.2 04/26/2018 [facility] CHEM PANEL B/C Ratio 19 6 - 25 04/26/2018 [facility] CHEM PANEL eGFR 80 04/26/2018 Result Comment: The eGFR is calculated [...] should be multiplied by the estimated BMI. [facility] CHEM PANEL Alk Phos 104 39 - 136 04/26/2018 [facility] CHEM PANEL Bili Total 0.3 0.2 - 1.3 04/26/2018 [facility] CHEM PANEL AST 14 0 - 37 04/26/2018 [facility] CHEM PANEL Sodium Lvl 140 135 - 145 04/26/2018 [facility] CHEM PANEL BUN 13 7 - 22 04/26/2018 [facility] CHEM PANEL Creatinine Lvl 0.67 0.50 - 1.40 04/26/2018 [facility] CHEM PANEL Glucose Lvl 80 70 - 99 04/26/2018 [facility] CHEM PANEL Albumin Lvl 3.0 3.5 - 5.0 04/26/2018 [facility] CHEM PANEL ALT 12 0 - 65 04/26/2018 [facility] CHEM PANEL CO2 27 24 - 32 04/26/2018 [facility] CHEM PANEL Calcium Lvl 8.7 8.5 - 10.5 04/26/2018 [facility] CHEM PANEL Potassium Lvl 3.9 3.5 - 5.1 04/26/2018 [facility] CHEM PANEL Chloride Lvl 108 95 - 109 04/26/2018 [facility] CHEM PANEL Total Protein 6.1 6.4 - 8.4 04/26/2018 [facility] HEMATOLOGY MCV 91.1 80.0 - 98.0 04/26/2018 [facility] HEMATOLOGY Hct 38.5 36.0 - 48.0 04/26/2018 [facility] HEMATOLOGY Hgb 12.9 12.0 - 16.0 04/26/2018 [facility] MCHC 33.5 32.0 - 36.0 04/26/2018 [facility] MCH 30.5 27.0 - 31.0 04/26/2018 [facility] MPV 8.4 7.4 - 10.4 04/26/2018 [facility] Platelet 184 133 - 450 04/26/2018 [facility] HEMATOLOGY RDW 16.2 11.5 - 14.5 04/26/2018 [facility] HEMATOLOGY RBC 4.23 4.20 - 5.40 04/26/2018 [facility] HEMATOLOGY WBC 5.2 3.7 - 10.4 04/26/2018 [facility] HEMATOLOGY Segs-Bands # 2.9 1.5 - 8.1 04/26/2018 [facility] HEMATOLOGY Eosinophils # 0.1 0.0 - 0.5 04/26/2018 [facility] HEMATOLOGY Monocytes # 0.6 0.0 - 0.8 04/26/2018 [facility] HEMATOLOGY Lymphocytes # 1.5 1.0 - 5.5 04/26/2018 [facility] HEMATOLOGY Segs 55.8 45.0 - 75.0 04/26/2018 [facility] HEMATOLOGY Basophils 0.6 0.0 - 1.0 04/26/2018 [facility] HEMATOLOGY Eosinophils 2.9 0.0 - 4.0 04/26/2018 [facility] Monocytes 11.5 2.0 - 12.0 04/26/2018 [facility] Lymphocytes 29.2 20.0 - 40.0 04/26/2018 [facility] CHEM PANEL eGFR 74 04/25/2018 Result Comment: The eGFR is calculated [...] should be multiplied by the estimated BMI. [facility] CHEM PANEL Bili Total 0.5 0.2 - 1.3 04/25/2018 [facility] CHEM PANEL B/C Ratio 18 6 - 25 04/25/2018 [facility] CHEM PANEL Albumin Lvl 2.8 3.5 - 5.0 04/25/2018 [facility] CHEM PANEL Total Protein 6.2 6.4 - 8.4 04/25/2018 [facility] CHEM PANEL Globulin 3.4 2.7 - 4.2 04/25/2018 [facility] CHEM PANEL ALT 13 0 - 65 04/25/2018 [facility] CHEM PANEL A/G Ratio 0.8 0.7 - 1.6 04/25/2018 [facility] CHEM PANEL Chloride Lvl 110 95 - 109 04/25/2018 [facility] CHEM PANEL CO2 24 24 - 32 04/25/2018 [facility] CHEM PANEL AGAP 11.9 10.0 - 20.0 04/25/2018 [facility] CHEM PANEL Calcium Lvl 8.7 8.5 - 10.5 04/25/2018 [facility] CHEM PANEL Alk Phos 104 39 - 136 04/25/2018 [facility] CHEM PANEL AST 13 0 - 37 04/25/2018 [facility] CHEM PANEL Potassium Lvl 3.9 3.5 - 5.1 04/25/2018 [facility] CHEM PANEL Sodium Lvl 142 135 - 145 04/25/2018 [facility] CHEM PANEL Glucose Lvl 83 70 - 99 04/25/2018 [facility] CHEM PANEL Creatinine Lvl 0.74 0.50 - 1.40 04/25/2018 [facility] CHEM PANEL BUN 13 7 - 22 04/25/2018 [facility] HEMATOLOGY Eosinophils 2.6 0.0 - 4.0 04/25/2018 [facility] HEMATOLOGY Monocytes 11.9 2.0 - 12.0 04/25/2018 [facility] HEMATOLOGY Lymphocytes 24.7 20.0 - 40.0 04/25/2018 [facility] HEMATOLOGY Monocytes # 0.6 0.0 - 0.8 04/25/2018 [facility] HEMATOLOGY Eosinophils # 0.1 0.0 - 0.5 04/25/2018 [facility] HEMATOLOGY Segs-Bands # 3.2 1.5 - 8.1 04/25/2018 [facility] HEMATOLOGY Basophils 0.9 0.0 - 1.0 04/25/2018 [facility] HEMATOLOGY Lymphocytes # 1.3 1.0 - 5.5 04/25/2018 [facility] HEMATOLOGY Segs 59.9 45.0 - 75.0 04/25/2018 [facility] HEMATOLOGY RDW 16.8 11.5 - 14.5 04/25/2018 [facility] HEMATOLOGY Platelet 187 133 - 450 04/25/2018 [facility] HEMATOLOGY MCH 30.8 27.0 - 31.0 04/25/2018 [facility] HEMATOLOGY MCHC 33.5 32.0 - 36.0 04/25/2018 [facility] HEMATOLOGY MPV 8.5 7.4 - 10.4 04/25/2018 [facility] HEMATOLOGY WBC 5.3 3.7 - 10.4 04/25/2018 [facility] HEMATOLOGY Hct 39.0 36.0 - 48.0 04/25/2018 [facility] HEMATOLOGY MCV 91.8 80.0 - 98.0 04/25/2018 [facility] HEMATOLOGY RBC 4.25 4.20 - 5.40 04/25/2018 [facility] HEMATOLOGY Hgb 13.1 12.0 - 16.0 04/25/2018 [facility] CHEM PANEL eGFR 77 04/24/2018 Result Comment: The eGFR is calculated [...] should be multiplied by the estimated BMI. [facility] CHEM PANEL Calcium Lvl 8.9 8.5 - 10.5 04/24/2018 [facility] CHEM PANEL Chloride Lvl 110 95 - 109 04/24/2018 [facility] CHEM PANEL Alk Phos 101 39 - 136 04/24/2018 [facility] CHEM PANEL AST 9 0 - 37 04/24/2018 [facility] CHEM PANEL CO2 27 24 - 32 04/24/2018 [facility] CHEM PANEL Albumin Lvl 3.1 3.5 - 5.0 04/24/2018 [facility] CHEM PANEL Total Protein 6.1 6.4 - 8.4 04/24/2018 [facility] CHEM PANEL ALT 7 0 - 65 04/24/2018 [facility] CHEM PANEL Bili Total 0.3 0.2 - 1.3 04/24/2018 [facility] CHEM PANEL Potassium Lvl 4.8 3.5 - 5.1 04/24/2018 [facility] CHEM PANEL Glucose Lvl 77 70 - 99 04/24/2018 [facility] CHEM PANEL BUN 13 7 - 22 04/24/2018 [facility] CHEM PANEL Sodium Lvl 145 135 - 145 04/24/2018 [facility] CHEM PANEL Creatinine Lvl 0.72 0.50 - 1.40 04/24/2018 [facility] CHEM PANEL A/G Ratio 1.0 0.7 - 1.6 04/24/2018 [facility] CHEM PANEL AGAP 12.8 10.0 - 20.0 04/24/2018 [facility] CHEM PANEL Globulin 3.0 2.7 - 4.2 04/24/2018 [facility] CHEM PANEL B/C Ratio 18 6 - 25 04/24/2018 [facility] CHEM PANEL Procalcitonin Lvl <0.05 ng/mL 0.00 - 0.10 04/24/2018 [facility] HEMATOLOGY Hct 38.8 36.0 - 48.0 04/24/2018 [facility] HEMATOLOGY MCHC 32.2 32.0 - 36.0 04/24/2018 [facility] MCH 29.7 27.0 - 31.0 04/24/2018 [facility] HEMATOLOGY MCV 92.2 80.0 - 98.0 04/24/2018 [facility] HEMATOLOGY Hgb 12.5 12.0 - 16.0 04/24/2018 [facility] HEMATOLOGY Platelet 211 133 - 450 04/24/2018 [facility] HEMATOLOGY MPV 8.8 7.4 - 10.4 04/24/2018 [facility] HEMATOLOGY RDW 16.8 11.5 - 14.5 04/24/2018 [facility] HEMATOLOGY WBC 5.5 3.7 - 10.4 04/24/2018 [facility] HEMATOLOGY RBC 4.21 4.20 - 5.40 04/24/2018 [facility] HEMATOLOGY Eosinophils 3.2 0.0 - 4.0 04/24/2018 [facility] HEMATOLOGY Monocytes 11.3 2.0 - 12.0 04/24/2018 [facility] HEMATOLOGY Lymphocytes 27.7 20.0 - 40.0 04/24/2018 [facility] HEMATOLOGY Basophils 0.6 0.0 - 1.0 04/24/2018 [facility] HEMATOLOGY Segs-Bands # 3.2 1.5 - 8.1 04/24/2018 [facility] HEMATOLOGY Eosinophils # 0.2 0.0 - 0.5 04/24/2018 [facility] HEMATOLOGY Monocytes # 0.6 0.0 - 0.8 04/24/2018 [facility] HEMATOLOGY Lymphocytes # 1.5 1.0 - 5.5 04/24/2018 [facility] HEMATOLOGY Segs 57.2 45.0 - 75.0 04/24/2018 [facility] CHEM PANEL Lactic Acid Lvl 1.0 0.5 - 2.2 04/23/2018 [facility] URINE AND STOOL UA Urobilinogen <=1.0 mg/dL 0.1 - 1.0 04/23/2018 [facility] URINE AND STOOL UA Leuk Est Large *ABN* (04/22/18 8:07 PM) Negative 04/23/2018 [facility] URINE AND STOOL UA Sq Epi Occasional /LPF Few /LPF 04/23/2018 [facility] URINE AND STOOL UA WBC 44 0 - 5 04/23/2018 [facility] URINE AND STOOL UA RBC 6 0 - 2 04/23/2018 [facility] URINE AND STOOL UA Bacteria Occasional /HPF None Seen /HPF 04/23/2018 [facility] URINE AND STOOL UA Mucus Few /LPF None Seen /LPF 04/23/2018 [facility] URINE AND STOOL UA Blood Moderate *ABN* (04/22/18 8:07 PM) Negative 04/23/2018 [facility] URINE AND STOOL UA Glucose Negative mg/dL Negative mg/dL 04/23/2018 [facility] URINE AND STOOL UA Ketones Negative mg/dL Negative mg/dL 04/23/2018 [facility] URINE AND STOOL UA Bili Negative *NA* (04/22/18 8:07 PM) Negative 04/23/2018 [facility] URINE AND STOOL UA Nitrite Positive *ABN* (04/22/18 8:07 PM) Negative 04/23/2018 [facility] URINE AND STOOL UA pH 5.0 5.0 - 8.0 04/23/2018 [facility] URINE AND STOOL UA Spec Grav 1.016 <=1.030 04/23/2018 [facility] URINE AND STOOL UA Turbidity Clear (04/22/18 8:07 PM) Clear 04/23/2018 [facility] URINE AND STOOL UA Color Yellow *NA* (04/22/18 8:07 PM) Yellow 04/23/2018 [facility] URINE AND STOOL UA Protein Negative mg/dL Negative mg/dL 04/23/2018 [facility] CARDIAC ENZYMES Troponin-I <0.02 0.00 - 0.40 04/23/2018 [facility] URINE AND STOOL UA Urobilinogen <=1.0 mg/dL 0.1 - 1.0 04/13/2018 [facility] URINE AND STOOL UA Mucus Few /LPF None Seen /LPF 04/13/2018 [facility] URINE AND STOOL UA WBC 4 0 - 5 04/13/2018 [facility] URINE AND STOOL UA Sq Epi Occasional /LPF Few /LPF 04/13/2018 [facility] URINE AND STOOL UA RBC 6 0 - 2 04/13/2018 [facility] URINE AND STOOL UA Bacteria Occasional /HPF None Seen /HPF 04/13/2018 [facility] URINE AND STOOL UA pH 6.0 5.0 - 8.0 04/13/2018 [facility] URINE AND STOOL UA Spec Grav 1.014 <=1.030 04/13/2018 [facility] URINE AND STOOL UA Blood Moderate *ABN* (04/13/18 2:03 PM) Negative 04/13/2018 [facility] URINE AND STOOL UA Nitrite Negative (04/13/18 2:03 PM) Negative 04/13/2018 [facility] URINE AND STOOL UA Leuk Est Small *ABN* (04/13/18 2:03 PM) Negative 04/13/2018 [facility] URINE AND STOOL UA Color Yellow *NA* (04/13/18 2:03 PM) Yellow 04/13/2018 [facility] URINE AND STOOL UA Turbidity Clear (04/13/18 2:03 PM) Clear 04/13/2018 [facility] URINE AND STOOL UA Glucose Negative mg/dL Negative mg/dL 04/13/2018 [facility] URINE AND STOOL UA Protein Negative mg/dL Negative mg/dL 04/13/2018 [facility] URINE AND STOOL UA Bili Negative *NA* (04/13/18 2:03 PM) Negative 04/13/2018 [facility] URINE AND STOOL UA Ketones Negative mg/dL Negative mg/dL 04/13/2018 [facility] ELECTROLYTES AGAP 10.6 10.0 - 20.0 03/11/2018 [facility] ELECTROLYTES eGFR 85 03/11/2018 Result Comment: The eGFR is calculated [...] should be multiplied by the estimated BMI. [facility] ELECTROLYTES BUN 14 7 - 22 03/11/2018 [facility] ELECTROLYTES CO2 26 24 - 32 03/11/2018 [facility] ELECTROLYTES Calcium Lvl 7.9 8.5 - 10.5 03/11/2018 [facility] ELECTROLYTES Potassium Lvl 3.6 3.5 - 5.1 03/11/2018 [facility] ELECTROLYTES Sodium Lvl 144 135 - 145 03/11/2018 [facility] ELECTROLYTES Chloride Lvl 111 95 - 109 03/11/2018 [facility] ELECTROLYTES Creatinine Lvl 0.56 0.50 - 1.40 03/11/2018 [facility] ELECTROLYTES Glucose Lvl 83 70 - 99 03/11/2018 [facility] HEMATOLOGY MPV 7.8 7.4 - 10.4 03/11/2018 [facility] HEMATOLOGY WBC 5.9 3.7 - 10.4 03/11/2018 [facility] HEMATOLOGY Platelet 214 133 - 450 03/11/2018 [facility] RDW 16.1 11.5 - 14.5 03/11/2018 [facility] MCHC 33.0 32.0 - 36.0 03/11/2018 [facility] HEMATOLOGY Hct 26.7 36.0 - 48.0 03/11/2018 [facility] RBC 3.07 4.20 - 5.40 03/11/2018 [facility] MCV 86.9 80.0 - 98.0 03/11/2018 [facility] HEMATOLOGY Hgb 8.8 12.0 - 16.0 03/11/2018 [facility] MCH 28.7 27.0 - 31.0 03/11/2018 [facility] CHEM PANEL eGFR 86 03/10/2018 Result Comment: The eGFR is calculated [...] should be multiplied by the estimated BMI. [facility] CHEM PANEL Chloride Lvl 109 95 - 109 03/10/2018 [facility] CHEM PANEL CO2 28 24 - 32 03/10/2018 [facility] CHEM PANEL Calcium Lvl 7.9 8.5 - 10.5 03/10/2018 [facility] CHEM PANEL Sodium Lvl 143 135 - 145 03/10/2018 [facility] CHEM PANEL Creatinine Lvl 0.55 0.50 - 1.40 03/10/2018 [facility] CHEM PANEL Potassium Lvl 3.3 3.5 - 5.1 03/10/2018 [facility] CHEM PANEL BUN 13 7 - 22 03/10/2018 [facility] CHEM PANEL Glucose Lvl 88 70 - 99 03/10/2018 [facility] CHEM PANEL AGAP 9.3 10.0 - 20.0 03/10/2018 [facility] HEMATOLOGY RBC 3.02 4.20 - 5.40 03/10/2018 [facility] HEMATOLOGY Hgb 8.8 12.0 - 16.0 03/10/2018 [facility] HEMATOLOGY WBC 9.2 3.7 - 10.4 03/10/2018 [facility] HEMATOLOGY MPV 7.9 7.4 - 10.4 03/10/2018 [facility] HEMATOLOGY RDW 16.2 11.5 - 14.5 03/10/2018 [facility] HEMATOLOGY Platelet 187 133 - 450 03/10/2018 [facility] HEMATOLOGY Hct 26.0 36.0 - 48.0 03/10/2018 [facility] HEMATOLOGY MCHC 33.7 32.0 - 36.0 03/10/2018 [facility] HEMATOLOGY MCH 29.1 27.0 - 31.0 03/10/2018 [facility] HEMATOLOGY MCV 86.3 80.0 - 98.0 03/10/2018 [facility] ELECTROLYTES AGAP 11.7 10.0 - 20.0 03/09/2018 [facility] ELECTROLYTES eGFR 84 03/09/2018 Result Comment: The eGFR is calculated [...] should be multiplied by the estimated BMI. [facility] ELECTROLYTES CO2 27 24 - 32 03/09/2018 [facility] ELECTROLYTES Calcium Lvl 8.1 8.5 - 10.5 03/09/2018 [facility] ELECTROLYTES Glucose Lvl 96 70 - 99 03/09/2018 [facility] ELECTROLYTES Chloride Lvl 107 95 - 109 03/09/2018 [facility] ELECTROLYTES Potassium Lvl 3.7 3.5 - 5.1 03/09/2018 [facility] ELECTROLYTES BUN 9 7 - 22 03/09/2018 [facility] ELECTROLYTES Sodium Lvl 142 135 - 145 03/09/2018 [facility] ELECTROLYTES Creatinine Lvl 0.59 0.50 - 1.40 03/09/2018 [facility] MPV 8.5 7.4 - 10.4 03/09/2018 [facility] Platelet 150 133 - 450 03/09/2018 [facility] Hgb 9.2 12.0 - 16.0 03/09/2018 [facility] Hct 27.1 36.0 - 48.0 03/09/2018 [facility] MCV 86.6 80.0 - 98.0 03/09/2018 [facility] MCH 29.5 27.0 - 31.0 03/09/2018 [facility] MCHC 34.0 32.0 - 36.0 03/09/2018 [facility] RDW 16.3 11.5 - 14.5 03/09/2018 [facility] WBC 7.9 3.7 - 10.4 03/09/2018 [facility] RBC 3.12 4.20 - 5.40 03/09/2018 [facility] BLOOD BANK RESULTS RBC product Product available 1 (03/07/18 6:22 AM) 03/07/2018 Result Comment: 03/07/2018 07:20 ADDIENINO
called to shraddha 03/07/2018 07:20 [facility] HEMATOLOGY Monocytes # 1.5 0.0 - 0.8 03/06/2018 [facility] HEMATOLOGY Monocytes 12.1 2.0 - 12.0 03/06/2018 [facility] HEMATOLOGY Lymphocytes # 1.1 1.0 - 5.5 03/06/2018 [facility] HEMATOLOGY Segs-Bands # 10.0 1.5 - 8.1 03/06/2018 [facility] HEMATOLOGY Basophils 0.3 0.0 - 1.0 03/06/2018 [facility] HEMATOLOGY Lymphocytes 8.8 20.0 - 40.0 03/06/2018 [facility] HEMATOLOGY Segs 78.8 45.0 - 75.0 03/06/2018 [facility] BLOOD BANK RESULTS Antibody Scrn Negative (03/05/18 8:37 AM) 03/05/2018 [facility] BLOOD BANK RESULTS ABO/Rh B POS 03/05/2018 [facility] CHEM PANEL Total Protein 6.3 6.4 - 8.4 03/05/2018 [facility] CHEM PANEL Albumin Lvl 3.0 3.5 - 5.0 03/05/2018 [facility] CHEM PANEL Alk Phos 57 39 - 136 03/05/2018 [facility] CHEM PANEL Bili Total 0.3 0.2 - 1.3 03/05/2018 [facility] CHEM PANEL ALT 12 0 - 65 03/05/2018 [facility] CHEM PANEL AST 14 0 - 37 03/05/2018 [facility] CHEM PANEL B/C Ratio 17 6 - 25 03/05/2018 [facility] CHEM PANEL A/G Ratio 0.9 0.7 - 1.6 03/05/2018 [facility] CHEM PANEL Globulin 3.3 2.7 - 4.2 03/05/2018 [facility] CHEM PANEL Magnesium Lvl 2.2 1.8 - 2.4 03/05/2018 [facility] HEMATOLOGY Basophils 0.3 0.0 - 1.0 03/05/2018 [facility] HEMATOLOGY Eosinophils 0.1 0.0 - 4.0 03/05/2018 [facility] HEMATOLOGY Segs-Bands # 8.2 1.5 - 8.1 03/05/2018 [facility] HEMATOLOGY Lymphocytes # 1.0 1.0 - 5.5 03/05/2018 [facility] HEMATOLOGY Monocytes # 0.7 0.0 - 0.8 03/05/2018 [facility] HEMATOLOGY Segs 82.3 45.0 - 75.0 03/05/2018 [facility] HEMATOLOGY Monocytes 7.3 2.0 - 12.0 03/05/2018 [facility] Lymphocytes 10.0 20.0 - 40.0 03/05/2018 [facility] PT 13.1 12.0 - 14.7 03/05/2018 [facility] HEMATOLOGY INR 0.99 0.85 - 1.17 03/05/2018 [facility] HEMATOLOGY PTT 28.3 22.9 - 35.8 03/05/2018 [facility] HEMATOLOGY Eosinophils # 0.1 0.0 - 0.5 03/05/2018 [facility] Monocytes # 0.7 0.0 - 0.8 03/05/2018 [facility] Segs-Bands # 7.9 1.5 - 8.1 03/05/2018 [facility] Basophils 0.5 0.0 - 1.0 03/05/2018 [facility] Lymphocytes # 1.1 1.0 - 5.5 03/05/2018 [facility] Lymphocytes 11.2 20.0 - 40.0 03/05/2018 [facility] Segs 80.1 45.0 - 75.0 03/05/2018 [facility] Eosinophils 0.7 0.0 - 4.0 03/05/2018 [facility] Monocytes 7.5 2.0 - 12.0 03/05/2018 [facility] Pathology Reports No Data Provided for This Section Diagnostic Reports Report Value Date Source Spine lumbar wo contrast CT CT LUMBAR [...] canal stenosis or neural foraminal narrowing. SL: [id number] 04/27/2018 [facility] Spine Lumbar Comp w Bend views DX [...] L3, L4, and L5. SL: EDGAR 04/24/2018 [facility] Retroperitoneal Complete US Patient Name: NICK CURRIE. : 1930; Age: 87 years y/o; Female. MR: [id number]. Ordering Physician: Shaun Wilkerson MD. PROCEDURE: RENAL [...] Otherwise, kidneys are unremarkable. SL: JULIÁN 04/23/2018 [facility] Pelvis AP DX Clinical Indication: - Acute [...] hip. No acute abnormalities are identified. SL: [id number] 04/13/2018 [facility] Chest 1view DX PROCEDURE: Chest, AP on 03/09/2018 at 1947 hours. INDICATION: Shortness of breath. COMPARISON: Chest radiographs dated 03/04/2018 and 08/04/2017. FINDINGS: No pleural effusion or pneumothorax. Linear density has developed in the right lower chest suggesting atelectasis. Lungs are otherwise clear without acute infiltrates. No venous congestion or consolidation. Mediastinum is unremarkable. IMPRESSION: Linear atelectasis within the right lower chest. SL: [id number] 03/09/2018 [facility] Hip 2/3 views uni w pelvis DX [...] again evident. There is generalized osteopenia. SL: [id number] 03/06/2018 [facility] Femur series DX Study: Pelvis and left [...] again evident. There is generalized osteopenia. SL: [id number] 03/06/2018 [facility] 2/3 views uni w pelvis DX Patient Name: NICK CURRIE : 1930; Age: 87 years y/o Female MR: [id number] * LEFT HIP, intraoperative, History: Comminuted intra-articular [...] are mildly comminuted lesser trochanteric fragments. SL: [id number] 03/05/2018 [facility] 2/3 views uni w pelvis DX LEFT [...] Intertrochanteric fracture of the left femur. SL: [id number] 03/04/2018 [facility] 1view DX Clinical Indication: Chest pain after fall Comparison: None FINDINGS: The frontal chest radiograph shows normal lung volumes without interstitial or airspace opacities, pleural effusions or pneumothorax. The cardiomediastinal contours are normal for the age of the patient with aortic tortuosity. There are degenerative changes in the spine and shoulders. IMPRESSION: No chest radiographic evidence of acute cardiopulmonary disease. SL: [id number] 03/04/2018 [facility] Femur series DX Patient Name: NICK CURRIE : 1930; Age: 87 years y/o Female MR: [id number] Study: 4 view examination of the left femur dated 03/04/2018. Clinical Indication: Left thigh pain sp fall; Comparison: None Osteopenia. There is a comminuted fracture of the left basicervical and intertrochanteric femoral region which has apex lateral angulation at the fracture site and medial rotation of the left femoral head relative to the left acetabulum. No other fracture or dislocation. SL: [id number] 03/04/2018 [facility] 2 views DX EXAMINATION: Chest, 2 view, [...] to the prior examination in 2016. 08/04/2017 [facility] Santiago Chest 2 views DX EXAM: 2 view(s) [...] nodule. Consider nonemergent follow-up CT chest. 04/21/2016 [facility] [place] Chest 2 views DX Exam: Two-view chest [...] Impression: 1. No acute cardiopulmonary abnormalities. 11/28/2015 [facility] Santiago Consultation Notes No Data Provided for This Section Discharge Summaries No Data Provided for This Section History and Physicals No Data Provided for This Section Vital Signs Vital Sign Value Date Comments Source Systolic (mm Hg) 117 05/14/2018 SNF: [facility] Diastolic (mm Hg) 95 05/14/2018 SNF: [facility] Heart Rate 71 {beats}/min 05/14/2018 SNF: [facility] Systolic (mm Hg) 120 05/13/2018 SNF: [facility] Diastolic (mm Hg) 63 05/13/2018 SNF: [facility] Heart Rate 66 {beats}/min 05/13/2018 SNF: [facility] Systolic (mm Hg) 129 05/12/2018 SNF: [facility] Diastolic (mm Hg) 60 05/12/2018 SN[facility]: [facility] Heart Rate 61 {beats}/min 05/12/2018 SNF: [facility] Systolic (mm Hg) 140 05/12/2018 SNF: [facility] Diastolic (mm Hg) 98 05/12/2018 SN[facility]: [facility] Heart Rate 79 {beats}/min 05/12/2018 SNF: [facility] Systolic (mm Hg) 154 05/11/2018 SNF: [facility] Diastolic (mm Hg) 71 05/11/2018 SNF: [facility] Heart Rate 60 {beats}/min 05/11/2018 SNF: [facility] Systolic (mm Hg) 131 05/11/2018 SNF: [facility] Diastolic (mm Hg) 70 05/11/2018 SNF: [facility] Heart Rate 67 {beats}/min 05/11/2018 SNF: [facility] Systolic (mm Hg) 116 05/10/2018 SNF: [facility] Diastolic (mm Hg) 63 05/10/2018 SNF: [facility] Heart Rate 60 {beats}/min 05/10/2018 SNF: [facility] Systolic (mm Hg) 118 05/09/2018 SNF: [facility] Diastolic (mm Hg) 96 05/09/2018 SN[facility]: [facility] Heart Rate 62 {beats}/min 05/09/2018 SNF: [facility] Systolic (mm Hg) 150 05/09/2018 SNF: [facility] Diastolic (mm Hg) 66 05/09/2018 SN[facility]: [facility] Heart Rate 66 {beats}/min 05/09/2018 SN[facility]: [facility] Systolic (mm Hg) 128 05/08/2018 SN[facility]: [facility] Diastolic (mm Hg) 62 05/08/2018 SN[facility]: [facility] Heart Rate 69 {beats}/min 05/08/2018 SN[facility]: [facility] Systolic (mm Hg) 144 05/07/2018 SNF: [facility] Diastolic (mm Hg) 78 05/07/2018 SN[facility]: [facility] Heart Rate 64 {beats}/min 05/07/2018 SNF: [facility] Height 62 05/06/2018 SNF: [facility] Systolic (mm Hg) 124 05/06/2018 SNF: [facility] Diastolic (mm Hg) 68 05/06/2018 SN[facility]: [facility] Heart Rate 65 {beats}/min 05/06/2018 SN[facility]: [facility] Systolic (mm Hg) 117 05/06/2018 SN[facility]: [facility] Diastolic (mm Hg) 62 05/06/2018 SN[facility]: [facility] Heart Rate 77 {beats}/min 05/06/2018 SN[facility]: [facility] Systolic (mm Hg) 131 05/05/2018 SN[facility]: [facility] Diastolic (mm Hg) 60 05/05/2018 SN[facility]: [facility] Heart Rate 61 {beats}/min 05/05/2018 SN[facility]: [facility] Systolic (mm Hg) 134 05/05/2018 SNF: [facility] Diastolic (mm Hg) 62 05/05/2018 SN[facility]: [facility] Heart Rate 88 {beats}/min 05/05/2018 SN[facility]: [facility] Systolic (mm Hg) 129 05/04/2018 SNF: [facility] Diastolic (mm Hg) 65 05/04/2018 SN[facility]: [facility] Heart Rate 60 {beats}/min 05/04/2018 SNF: [facility] Systolic (mm Hg) 120 05/04/2018 SN[facility]: [facility] Diastolic (mm Hg) 63 05/04/2018 SN[facility]: [facility] Heart Rate 67 {beats}/min 05/04/2018 SN[facility]: [facility] Systolic (mm Hg) 131 05/03/2018 SN[facility]: [facility] Diastolic (mm Hg) 64 05/03/2018 SN[facility]: [facility] Heart Rate 61 {beats}/min 05/03/2018 SNF: [facility] Systolic (mm Hg) 119 05/03/2018 SN[facility]: [facility] Diastolic (mm Hg) 63 05/03/2018 SN[facility]: [facility] Heart Rate 72 {beats}/min 05/03/2018 SNF: [facility] Systolic (mm Hg) 138 05/02/2018 SNF: [facility] Diastolic (mm Hg) 76 05/02/2018 SNF: [facility] Heart Rate 80 {beats}/min 05/02/2018 SNF: [facility] Systolic (mm Hg) 140 05/01/2018 SNF: [facility] Diastolic (mm Hg) 67 05/01/2018 SNF: [facility] Heart Rate 82 {beats}/min 05/01/2018 SNF: [facility] Systolic (mm Hg) 133 05/01/2018 SN[facility]: [facility] Diastolic (mm Hg) 65 05/01/2018 SN[facility]: [facility] Heart Rate 83 {beats}/min 05/01/2018 SNF: [facility] Systolic (mm Hg) 136 04/30/2018 SNF: [facility] Diastolic (mm Hg) 67 04/30/2018 SNF: [facility] Heart Rate 78 {beats}/min 04/30/2018 SNF: [facility] Systolic (mm Hg) 147 04/30/2018 SN[facility]: [facility] Diastolic (mm Hg) 60 04/30/2018 SN[facility]: [facility] Heart Rate 73 {beats}/min 04/30/2018 SNF: [facility] Systolic (mm Hg) 149 04/29/2018 SNF: [facility] Diastolic (mm Hg) 70 04/29/2018 SNF: [facility] Heart Rate 66 {beats}/min 04/29/2018 SNF: [facility] Systolic (mm Hg) 117 04/29/2018 SNF: [facility] Diastolic (mm Hg) 64 04/29/2018 [facility]: [facility] Heart Rate 71 {beats}/min 04/29/2018 SNF: [facility] Systolic (mm Hg) 118 04/29/2018 SNF: [facility] Diastolic (mm Hg) 70 04/29/2018 SN[facility]: [facility] Heart Rate 62 {beats}/min 04/29/2018 SNF: [facility] Weight 122 04/28/2018 SNF: [facility] Systolic (mm Hg) 127 04/28/2018 SNF: [facility] Diastolic (mm Hg) 63 04/28/2018 SNF: [facility] Heart Rate 78 {beats}/min 04/28/2018 SNF: [facility] Systolic (mm Hg) 148 04/28/2018 SNF: [facility] Diastolic (mm Hg) 68 04/28/2018 SNF: [facility] Temperature Oral (F) 97.8 F 04/28/2018 SNF: [facility] Heart Rate 70 {beats}/min 04/28/2018 SN[facility]: [facility] Heart Rate 85 04/28/2018 [facility] Systolic (mm Hg) 150 04/28/2018 [facility] Diastolic (mm Hg) 76 04/28/2018 [facility] Temperature Oral (F) 98.3 F 04/28/2018 [facility] Systolic (mm Hg) 152 04/27/2018 [facility] Diastolic (mm Hg) 71 04/27/2018 [facility] Respitory Rate 18 04/27/2018 [facility] Heart Rate 70 04/27/2018 [facility] Temperature Oral (F) 98.5 F 04/27/2018 [facility] Respitory Rate 18 04/27/2018 [facility] Heart Rate 65 04/27/2018 [facility] Temperature Oral (F) 97.6 F 04/27/2018 [facility] Systolic (mm Hg) 129 04/27/2018 [facility] Diastolic (mm Hg) 76 04/27/2018 [facility] Respitory Rate 18 04/27/2018 [facility] BMI Calculated 24.01 04/23/2018 [facility] Weight 59.545 04/23/2018 [facility] Height 157.48 cm 04/23/2018 [facility] Height 152.4 cm 04/22/2018 [facility] BMI Calculated 24.46 04/22/2018 [facility] Weight 56.818 04/22/2018 [facility] Respitory Rate 18 04/13/2018 [facility] Heart Rate 64 04/13/2018 [facility] Systolic (mm Hg) 139 04/13/2018 [facility] Diastolic (mm Hg) 58 04/13/2018 [facility] Temperature Oral (F) 98.4 F 04/13/2018 [facility] Systolic (mm Hg) 153 04/13/2018 [facility] Diastolic (mm Hg) 63 04/13/2018 [facility] Systolic (mm Hg) 166 04/13/2018 [facility] Diastolic (mm Hg) 52 04/13/2018 [facility] Heart Rate 62 04/13/2018 [facility] Temperature Oral (F) 98.1 F 04/13/2018 [facility] Respitory Rate 16 04/13/2018 [facility] Systolic (mm Hg) 132 03/31/2018 SNF: [facility] Diastolic (mm Hg) 69 03/31/2018 SNF: [facility] Heart Rate 73 {beats}/min 03/31/2018 SNF: [facility] Systolic (mm Hg) 131 03/30/2018 SNF: [facility] Diastolic (mm Hg) 66 03/30/2018 SNF: [facility] Heart Rate 68 {beats}/min 03/30/2018 SNF: [facility] Systolic (mm Hg) 119 03/30/2018 SN[facility]: [facility] Diastolic (mm Hg) 57 03/30/2018 SNF: [facility] Heart Rate 69 {beats}/min 03/30/2018 SNF: [facility] Systolic (mm Hg) 128 03/29/2018 SNF: [facility] Diastolic (mm Hg) 67 03/29/2018 SNF: [facility] Heart Rate 72 {beats}/min 03/29/2018 SNF: [facility] Systolic (mm Hg) 131 03/29/2018 SN[facility]: [facility] Diastolic (mm Hg) 64 03/29/2018 SN[facility]: [facility] Heart Rate 66 {beats}/min 03/29/2018 SNF: [facility] Systolic (mm Hg) 121 03/28/2018 SNF: [facility] Diastolic (mm Hg) 60 03/28/2018 SNF: [facility] Heart Rate 67 {beats}/min 03/28/2018 SNF: [facility] Systolic (mm Hg) 112 03/28/2018 SNF: [facility] Diastolic (mm Hg) 60 03/28/2018 SNF: [facility] Heart Rate 74 {beats}/min 03/28/2018 SNF: [facility] Systolic (mm Hg) 135 03/26/2018 SNF: [facility] Diastolic (mm Hg) 64 03/26/2018 SNF: [facility] Heart Rate 70 {beats}/min 03/26/2018 SNF: [facility] Systolic (mm Hg) 110 03/26/2018 SNF: [facility] Diastolic (mm Hg) 58 03/26/2018 SNF: [facility] Heart Rate 71 {beats}/min 03/26/2018 SNF: [facility] Systolic (mm Hg) 112 03/25/2018 SNF: [facility] Diastolic (mm Hg) 60 03/25/2018 SNF: [facility] Heart Rate 75 {beats}/min 03/25/2018 SNF: [facility] Systolic (mm Hg) 126 03/25/2018 SNF: [facility] Diastolic (mm Hg) 81 03/25/2018 SNF: [facility] Heart Rate 76 {beats}/min 03/25/2018 SNF: [facility] Systolic (mm Hg) 125 03/24/2018 SNF: [facility] Diastolic (mm Hg) 60 03/24/2018 SN[facility]: [facility] Heart Rate 72 {beats}/min 03/24/2018 SNF: [facility] Systolic (mm Hg) 136 03/24/2018 SN[facility]: [facility] Diastolic (mm Hg) 61 03/24/2018 SN[facility]: [facility] Heart Rate 83 {beats}/min 03/24/2018 SNF: [facility] Systolic (mm Hg) 115 03/23/2018 SNF: [facility] Diastolic (mm Hg) 64 03/23/2018 [facility]: [facility] Heart Rate 76 {beats}/min 03/23/2018 SNF: [facility] Systolic (mm Hg) 113 03/23/2018 SNF: [facility] Diastolic (mm Hg) 57 03/23/2018 SNF: [facility] Heart Rate 74 {beats}/min 03/23/2018 SNF: [facility] Systolic (mm Hg) 110 03/22/2018 SNF: [facility] Diastolic (mm Hg) 60 03/22/2018 [facility]: [facility] Heart Rate 73 {beats}/min 03/22/2018 [facility]: [facility] Systolic (mm Hg) 124 03/22/2018 [facility]: [facility] Diastolic (mm Hg) 60 03/22/2018 SN[facility]: [facility] Heart Rate 81 {beats}/min 03/22/2018 SN[facility]: [facility] Systolic (mm Hg) 126 03/21/2018 SN[facility]: [facility] Diastolic (mm Hg) 66 03/21/2018 [facility]: [facility] Heart Rate 78 {beats}/min 03/21/2018 [facility]: [facility] Systolic (mm Hg) 120 03/19/2018 [facility]: [facility] Diastolic (mm Hg) 60 03/19/2018 [facility]: [facility] Heart Rate 70 {beats}/min 03/19/2018 [facility]: [facility] Systolic (mm Hg) 129 03/19/2018 [facility]: [facility] Diastolic (mm Hg) 66 03/19/2018 SN[facility]: [facility] Heart Rate 73 {beats}/min 03/19/2018 SNF: [facility] Systolic (mm Hg) 133 03/18/2018 SNF: [facility] Diastolic (mm Hg) 75 03/18/2018 [facility]: [facility] Heart Rate 76 {beats}/min 03/18/2018 [facility]: [facility] Systolic (mm Hg) 112 03/18/2018 SN[facility]: [facility] Diastolic (mm Hg) 67 03/18/2018 SNF: [facility] Heart Rate 78 {beats}/min 03/18/2018 SNF: [facility] Systolic (mm Hg) 125 03/17/2018 SNF: [facility] Diastolic (mm Hg) 68 03/17/2018 SNF: [facility] Heart Rate 82 {beats}/min 03/17/2018 SNF: [facility] Systolic (mm Hg) 116 03/17/2018 SNF: [facility] Diastolic (mm Hg) 60 03/17/2018 SNF: [facility] Heart Rate 96 {beats}/min 03/17/2018 SNF: [facility] Systolic (mm Hg) 123 03/16/2018 SNF: [facility] Diastolic (mm Hg) 60 03/16/2018 SNF: [facility] Heart Rate 80 {beats}/min 03/16/2018 SNF: [facility] Systolic (mm Hg) 131 03/16/2018 SNF: [facility] Diastolic (mm Hg) 61 03/16/2018 SN[facility]: [facility] Heart Rate 84 {beats}/min 03/16/2018 SNF: [facility] Weight 128 03/16/2018 SNF: [facility] Height 62 03/16/2018 SNF: [facility] Systolic (mm Hg) 125 03/15/2018 SNF: [facility] Diastolic (mm Hg) 68 03/15/2018 SNF: [facility] Heart Rate 75 {beats}/min 03/15/2018 SNF: [facility] Systolic (mm Hg) 114 03/15/2018 SN[facility]: [facility] Diastolic (mm Hg) 84 03/15/2018 SN[facility]: [facility] Heart Rate 86 {beats}/min 03/15/2018 SNF: [facility] Systolic (mm Hg) 133 03/14/2018 SNF: [facility] Diastolic (mm Hg) 71 03/14/2018 SNF: [facility] Heart Rate 80 {beats}/min 03/14/2018 SNF: [facility] Systolic (mm Hg) 129 03/14/2018 SNF: [facility] Diastolic (mm Hg) 60 03/14/2018 SNF: [facility] Heart Rate 84 {beats}/min 03/14/2018 SNF: [facility] Systolic (mm Hg) 130 03/14/2018 SNF: [facility] Diastolic (mm Hg) 68 03/14/2018 SN[facility]: [facility] Heart Rate 78 {beats}/min 03/14/2018 SNF: [facility] Systolic (mm Hg) 146 03/13/2018 SNF: [facility] Diastolic (mm Hg) 58 03/13/2018 SNF: [facility] Heart Rate 81 {beats}/min 03/13/2018 SNF: [facility] Systolic (mm Hg) 131 03/12/2018 SN[facility]: [facility] Diastolic (mm Hg) 72 03/12/2018 SN[facility]: [facility] Heart Rate 68 {beats}/min 03/12/2018 SN[facility]: [facility] Systolic (mm Hg) 135 03/12/2018 SNF: [facility] Diastolic (mm Hg) 66 03/12/2018 SNF: [facility] Heart Rate 75 {beats}/min 03/12/2018 SNF: [facility] Systolic (mm Hg) 132 03/12/2018 SNF: [facility] Diastolic (mm Hg) 78 03/12/2018 SNF: [facility] Temperature Oral (F) 97.6 F 03/12/2018 SNF: [facility] Respitory Rate 18 03/12/2018 SNF: [facility] Heart Rate 76 {beats}/min 03/12/2018 SNF: [facility] Systolic (mm Hg) 128 03/11/2018 SNF: [facility] Diastolic (mm Hg) 60 03/11/2018 SNF: [facility] Heart Rate 84 {beats}/min 03/11/2018 SNF: [facility] Heart Rate 78 03/11/2018 [facility] Respitory Rate 16 03/11/2018 [facility] Systolic (mm Hg) 109 03/11/2018 [facility] Diastolic (mm Hg) 64 03/11/2018 [facility] Temperature Oral (F) 98.4 F 03/11/2018 [facility] Systolic (mm Hg) 113 03/11/2018 [facility] Diastolic (mm Hg) 64 03/11/2018 [facility] Respitory Rate 16 03/11/2018 [facility] Heart Rate 74 03/11/2018 [facility] Temperature Oral (F) 97.9 F 03/11/2018 [facility] Systolic (mm Hg) 109 03/11/2018 [facility] Diastolic (mm Hg) 65 03/11/2018 [facility] Respitory Rate 16 03/11/2018 [facility] Heart Rate 76 03/11/2018 [facility] Temperature Oral (F) 98.0 F 03/11/2018 [facility] Height 62 03/09/2018 SNF: [facility] Weight 128 03/09/2018 SNF: [facility] Weight 60.909 03/05/2018 [facility] BMI Calculated 24.56 03/05/2018 [facility] Height 157.48 cm 03/05/2018 [facility] Encounters Location Location Details Encounter Type Encounter Number Reason For Visit Attending Provider ADM Date DC Date Status Source [facility] [place] [facility] [id number] Afshin Marie 11/28/2015 11/29/2015 [facility] [place] [facility] [place] [facility] [id number] Afshin Marie 04/21/2016 04/22/2016 [facility] [place] [facility] [place] [facility] [id number] Afshin Marie 08/04/2017 08/05/2017 [facility] Inpatient [id number] Yoni Ann 03/05/2018 03/11/2018 [facility] Emergency [id number] John Sheldonwuma 04/13/2018 04/13/2018 [facility] Inpatient [id number] Shaun Moyaarya 04/22/2018 04/28/2018 [facility] Procedures Procedure Code Date Perfomer Comments Source ORIF - Open reduction and internal fixation of fracture [id number] 03/05/2018 [facility] Assessment and Plan Assessment and Plan Date Source Extracted from:Title: Clinical Document Author: Augustina Calero NP Date: 04/27/18 [facility] PATIENT NAME: NICK CURRIE ATTENDING PHYSICIAN: ROYCE FATIMA CONSULTING PHYSICIAN: Augustina Gorman SENIOR LEAD PROJECT MANAGER DATE OF CONSULT: 04/27/2018 REASON FOR CONSULT: [...] XII grossly intact. Sensation intact. Reflexes 2+. IPS Q AT [facility] G R 4+ 4+ 4+ 4+ 4+ L 4+ 4+ 4+ 4+ 4+ LABORATORY DATA: Hct: 38.5 % (04/26/18 04:11:00) [...] CT lumbar 3. F/u in clinic at [phone] in 1-2 weeks. Augustina Calero SENIOR LEAD PROJECT MANAGER 04/28/2018 [place] Extracted from:Title: Discharge Summary * Author: Yoni Ann MD Date: 03/11/18 Discharge Information Disposition: shelter facility Condition: Stable Medications: See med reconciliation form Diet: Heart healthy Discharge Plan In the event of any worsening symptoms patient was to come back to the ED for further evaluation Discharge summary to greater than 35 minutes Extracted from:Title: Clinical Document Author: Jose Mora MD Date: [...] significantly improved. PHYSICAL EXAMINATION: Vitals and Temp: Vitals Tmp(F) Pulse BP RR SpO2 FIO2 03/11 07:40 97.9 74 113/64 16 96 --- 03/11 04:15 98.0 76 109/65 16 97 --- 03/11 00:15 98.3 86 129/65 16 96 --- 03/10 20:30 98.2 79 110/65 16 97 --- 03/10 17:00 98.1 86 100/58 16 97 --- 24 Hr Tmax: 98.3F (36.83c) at 03/11 00:15 Vital Signs are the last 5 in the [...] DATA: Labs (Last four charted values) WBC 5.9 (MARCH 11) 9.2 (MARCH 10) 7.9 (MARCH 09) 9.2 (MAR 08) Hgb L 8.8 (MARCH 11) L 8.8 (MARCH 10) L 9.2 (MARCH 09) L 9.9 (MAR 08) Hct L 26.7 (MARCH 11) L 26.0 (MARCH 10) L 27.1 (MARCH 09) L 29.5 (MAR 08) Plt 214 (MARCH 11) 187 (MARCH 10) 150 (MARCH 09) L 122 (MAR 08) Na 144 (MARCH 11) 143 (MARCH 10) 142 (MARCH 09) 141 (MAR 08) K 3.6 (MARCH 11) L 3.3 (MARCH 10) 3.7 (MARCH 09) 3.8 (MAR 08) CO2 26 (MARCH 11) 28 (MARCH 10) 27 (MARCH 09) 25 (MAR 08) Cl H 111 (MARCH 11) 109 (MARCH 10) 107 (MARCH 09) 108 (MAR 08) Cr 0.56 (MARCH 11) 0.55 (MARCH 10) 0.59 (MARCH 09) 0.52 (MAR 08) BUN 14 (MARCH 11) 13 (MARCH 10) 9 (MARCH 09) 11 (MAR 08) Glucose Random 83 (MARCH 11) 88 (MARCH 10) 96 (MARCH 09) H 101 (MAR 08) Mg 2.2 (MAR 05) Ca L 7.9 (MARCH 11) L 7.9 (MARCH 10) L 8.1 (MARCH 09) L 7.8 (MAR 08) PT 13.1 (MAR 04) INR 0.99 (MAR 04) PTT 28.3 (MAR 04) IMAGING STUDIES: No new imaging. ASSESSMENT AND PLAN: The patient has 87-year-old lady with: 1. Acute traumatic left hip intratrochanteric femur fracture status post ORIF. Continue 50% weightbearing. Continue postoperative risk reduction. Continue rehabilitation therapies. Continue Lovenox. -[place] out POD 14 2. Acute postoperative left [...] We are recommending a referral to the intermediate center with 1 to 2 hours of therapy per day and 24-hour nursing care. Case mgmt has contacted family. -Plan for SNF today. 03/11/2018 [facility] Plan of Care No Data Provided for This Section Social History Social History Date Source Smoking StatusStart DateEnd Date Unknown if ever smoked 05/14/2018 16:38:13 05/09/2018 SNF: [facility] Social History TypeResponse Alcohol Never Smoking Status Never smoker; Exposure to Tobacco Smoke None; Cigarette Smoking Last 365 Days No; Reg Smoking Cessation Counseling No entered on: 04/23/18 04/23/2018 [facility] No data available for this section 08/05/2017 [facility] Santiago Family History No Data Provided for This Section Advance Directives Order Name Results Value Date Source Advance Directives Advance Directives Cardiopulmonary Resuscitation 05/14/2018 SNF: [facility] Advance Directives Advance Directives Cardiopulmonary Resuscitation 03/31/2018 SNF: [facility] Functional Status No Data Provided for This Section
[2019-05-28] VITALS (23 sets, daily range): BP systolic 93–131; BP diastolic 35–89
[2019-05-28] MEDS ORDERED: AMIODARONE 900MG 500 ML IV ONE (00:09)
[2019-05-28] MEDS ORDERED: AMIODARONE 900MG 500 ML IV SCH (01:00)
--- NOTE | 2019-05-28 01:39 | Diagnostic Imaging Report ---
A single frontal view of the chest. HISTORY: Chest pain, rapid heart rate COMPARISON: Chest radiograph January 12, 2019 DISCUSSION: Portable technique, limits sensitivity of the exam. Soft tissue attenuation partially limits sensitivity of the exam. Overlying monitoring leads and tubing. Tubes/Lines: None Lungs and pleura: The lungs are well inflated. The small pulmonary nodules previously seen at the lung bases on the CT of the abdomen and pelvis from January 12, 2019 are not visible on this radiograph. No evidence of a consolidative pneumonia or pulmonary alveolar edema. No definite pleural effusion or pneumothorax is identified. Heart and mediastinum: The cardiomediastinal silhouette appears unremarkable. Bones and soft tissues: Appear unremarkable, given this limited exam. IMPRESSION: 1. No acute radiographic abnormality. 2. Recommend a follow-up nonemergent CT of the chest without contrast for surveillance of the previously seen small pulmonary nodules. Signed by: Dr. Mike Stover D.O., M.M.M. on 05/28/2019 1:36 AM
[2019-05-28 02:13] LABS: BASOPHILS # (AUTO) 0.1 (0.0-0.1); BASOPHILS % 0.6 % (0.0-1.0); EOSINOPHILS # (AUTO) 0.2 (0.0-0.4); EOSINOPHILS % 2.1 % (0.0-6.0); HEMATOCRIT 40.5 % (34.2-44.1); HEMOGLOBIN 13.8 g/dL (12.0-16.0); LYMPHOCYTES # (AUTO) 2.3 (1.0-3.2); MEAN CORPUSCULAR HEMOGLOBIN 32.3 pg (28-32); MEAN CORPUSCULAR HGB CONC 34.1 g/dL (31-35); MEAN CORPUSCULAR VOLUME 94.8 fL (81-99); MONOCYTES # (AUTO) 0.8 (0.2-0.8); MONOCYTES % 9.7 % (4.4-11.3); NEUTROPHILS # (AUTO) 5.1 (2.1-6.9); NEUTROPHILS % 60.4 % (38.7-80.0); PLATELET COUNT 234 x10e3/uL (140-360); RED BLOOD COUNT 4.27 x10e6/uL (3.6-5.1); RED CELL DISTRIBUTION WIDTH 12.8 % (11.7-14.4)
[2019-05-28] MEDS: SODIUM CHLORIDE 0.9% 1000ML 1,000 ML IV SCH ×3 (02:29→21:29)
[2019-05-28 02:38] LABS: BILIRUBIN,URINE NEGATIVE (NEGATIVE); CLARITY,URINE CLEAR (CLEAR); COLOR,URINE YELLOW (YELLOW); KETONES,URINE NEGATIVE (NEGATIVE); LEUKOCYTE ESTERASE ,URINE NEGATIVE (NEGATIVE); NITRITE,URINE NEGATIVE (NEGATIVE); PROTEIN,URINE DIPSTICK NEGATIVE (NEGATIVE); URINE UROBILINOGEN 0.2 mg/dL (0.2 - 1)
[2019-05-28 02:44] LABS: EPITHELIAL CELLS,URINE FEW /LPF; RBC,URINE 0-5 /HPF (0-5); WBC,URINE (MAN) 0-5 /HPF (0-5)
[2019-05-28 02:47] LABS: ALANINE AMINOTRANSFERASE 7 IU/L (0-55); ALBUMIN 3.8 g/dL (3.5-5.0); ALKALINE PHOSPHATASE 89 IU/L (40-150); ANION GAP 17.5 mmol/L (8-16); BLOOD UREA NITROGEN 14 mg/dL (7-26); BUN/CREATININE RATIO 18 (6-25); CALCIUM 10.3 mg/dL (8.4-10.2); CARBON DIOXIDE 24 mmol/L (22-29); CHLORIDE 104 mmol/L (98-107); CREATINE KINASE 24 IU/L (29-168); CREATININE, SERUM 0.79 mg/dL (0.57-1.11); EST GLOMERULAR FILTRATION RATE > 60 ML/MIN (60-); GLUCOSE 100 mg/dL (74-118); POTASSIUM 3.5 mmol/L (3.5-5.1); SODIUM 142 mmol/L (136-145)
--- OUTSIDE RECORDS SUMMARY | 2019-05-28 03:05 | XMS REPORT | Continuity of Care Document ---
Author Author [employer] Organization [employer] Address Unknown Phone Unavailable Care Team Providers Care Client Support Associate Name Role Phone [facility] [employer] Information Exchange Unavailable Unavailable Problems Problem Status Onset Date Classification Date Reported Comments Source M62.81 MUSCLE WEAKNESS 04/28/2018 Diagnosis 05/14/2018 SNF: [facility] [place] [facility] [place] [facility] Walking disability 04/27/2018 Diagnosis 05/14/2018 SNF: [facility] [place] [facility] S22.089S UNSPECIFIED FRACTURE OF T11-T12 VERTEBRA, SEQUELA 04/27/2018 Diagnosis 05/14/2018 SNF: [facility] [place] [facility] G89.29 OTHER CHRONIC PAIN 04/27/2018 Diagnosis 05/14/2018 SNF: [facility] [place] [facility] Z91.81 HISTORY OF FALLING 04/27/2018 Diagnosis 05/14/2018 SNF: [facility] [place] [facility] R53.1 WEAKNESS 04/27/2018 Diagnosis 05/14/2018 SNF: [facility] [place] [facility] ACUTE UTI,PHYSICAL DECONDITIONING,WEAKNE Active 04/22/2018 [place] Acute pain of right hip 04/13/2018 04/16/2018 [place] BACK PAIN Active 04/13/2018 [facility] S72.92XS UNSPECIFIED FRACTURE OF LEFT FEMUR, SEQUELA 03/11/2018 Diagnosis 05/14/2018 SNF: [facility] [place] [facility] W19.XXXS UNSPECIFIED FALL, SEQUELA 03/11/2018 Diagnosis 05/14/2018 SNF: [facility] [place] [facility] I10 ESSENTIAL HYPERTENSION 03/11/2018 Diagnosis 05/14/2018 SNF: [facility] [place] [facility] 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 FX HIP Active 03/04/2018 [facility] INTRTROCHANTERIC FRACTURE OF FEMUR Active 03/04/2018 [facility] R91.8 - OTHER NONSPECIFIC ABNORMAL FIN Active 04/25/2016 RADHA Santiago D64.9 - "ANEMIA, UNSPECIFIED" Active 04/21/2016 RADHA Santiago DISPLACED INTERTROCHANTERIC FRACTURE OF Active [facility] URINARY TRACT INFECTION, SITE NOT SPECIF Active [facility] OTHER MALAISE Active [facility] WEAKNESS Active [facility] Medications Medication Details Route Status Patient Instructions Ordering Provider Order Date Source Ibuprofen Tablet 800 MG Give 1 tablet by mouth every 8 hours as needed for Pain Oral Active 04/29/2018 SNF: [facility] Cipro Tablet 500 MG Give 1 tablet by mouth two times a day for UTI for 10 Days Oral Active 04/28/2018 SNF: [facility] Tylenol with Codeine #3 Tablet 300-30 MG Give 1 tablet by mouth every 8 hours as needed for PAIN Oral Active 04/28/2018 SNF: [facility] Nicolas[facility] [place] [facility] Protonix Tablet Delayed Release 40 MG Give 1 tablet by mouth one time a day for gerd Oral Active 04/28/2018 SNF: [facility] Metoprolol Tartrate Tablet Give 12.5 mg by mouth two times a day for HTN Hold for SBP less than 110, HR less than 60 Oral Active 04/28/2018 SNF: [facility] Lidocaine Patch 5 % Apply to hip topically one time a day for pain and remove per schedule External Active 04/28/2018 SNF: [facility] - [facility] Cefdinir Capsule 300 MG Give 1 capsule by mouth two times a day for UTI for 7 Days Oral Inactive 04/28/2018 SNF: [facility] Nicolasa [place] [facility] Cyclobenzaprine HCl Tablet 5 MG Give 1 tablet by mouth every 8 hours as needed for Spasm Oral Active 04/28/2018 SNF: [facility] Nicolasa [place] [facility] cefdinir 300 MG Oral Capsule 300 mg=1 cap, PO, [id number], X 7 day, # 14 cap, 0 Refill(s), Pharmacy: [id number] Active 04/27/2018 [facility] DME Prescription See Instructions, MISC, ONCE, Use TSLO brace when upright., # 1 ea, 0 Refill(s) Active 04/27/2018 [facility] ocular lubricant solution Each Affected Eye, QID, PRN Dry Eyes, 0 Refill(s) Active 04/27/2018 [facility] Artificial Tears 1 drp, Route: Each Affected Eye, QID, Drug form: SOLN, PRN Dry Eyes, Start date: 04/27/18 13:11:00 CDT, Duration: 30 day, Stop date: 05/27/18 13:10:00 CDT Inactive 04/27/2018 [facility] Vantin 200 mg, Route: PO, Drug form: TAB, [id number], Dosing Weight 59.545, kg, Start date: 04/25/18 14:00:00 CDT, Duration: 14 day, Stop date: 05/09/18 2:00:00 CDT, ABX Indication: Urinary Tract Infection Inactive 04/25/2018 [facility] cefdinir 300 mg, 1 cap, Route: PO, Drug form: CAP, [id number], Start date: 04/25/18 14:00:00 CDT, Duration: 14 day, Stop date: 05/09/18 2:00:00 CDTNotes: (Same As: Omnicef) No Longer Active 04/25/2018 [facility] Rocephin 1 gm, Route: IVP, [id number], Dosing Weight 59.545, kg, Start date: 04/23/18 21:00:00 CDT, Duration: 7 day, Stop date: 04/29/18 21:00:00 CDT, ABX Indication: Genital Tract InfectionNotes: (Same As: Rocephin). Use with 100 mL NS and infuse over 30 min MEDICATION WASTE Product Size: 1000 mg Product Wasted: ___ mg No Longer Active 04/24/2018 [facility] Acetaminophen 325 MG / Hydrocodone Bitartrate 5 MG Oral Tablet [Esbon 5/325] 1 tab, Route: PO, Drug Form: TAB, Dosing Weight 59.545, kg, Q4H, PRN Pain Score 1-3, Start date: 04/23/18 15:42:00 CDT, Duration: 30 day, Stop date: 05/23/18 15:41:00 CDTNotes: (Same as: Esbon 325/5) Do not exceed 4gm/day of acetaminophen. No Longer Active 04/23/2018 [facility] Lovenox 40 mg, 0.4 mL, Route: SUB-Q, Drug form: INJ, [id number], Dosing Weight 59.545, kg, Start date: 04/23/18 9:00:00 CDT, Duration: 30 day, Stop date: 05/22/18 9:00:00 CDTNotes: (Same as: Lovenox) No Longer Active 04/23/2018 [facility] Protonix 40 mg, 1 tab, Route: PO, Drug form: ECTAB, Daily, Dosing Weight 59.545, kg, Start date: 04/23/18 9:00:00 CDT, Duration: 30 day, Stop date: 05/22/18 9:00:00 CDTNotes: Tablet should not be chewed or crushed. (Same as: Protonix) No Longer Active 04/23/2018 [facility] Lopressor 12.5 mg, 0.5 tab, Route: PO, Drug form: TAB, Q12H, Dosing Weight 59.545, kg, Start date: 04/23/18 9:00:00 CDT, Duration: 30 day, Stop date: 05/22/18 21:00:00 CDTNotes: (Same as: Lopressor) No Longer Active 04/23/2018 [facility] Lidocaine 0.05 MG/MG Transdermal Patch 1 patch, Route: TOP, Daily, Drug form: FILM, Start date: 04/23/18 9:00:00 CDT, Duration: 30 day, Stop date: 05/22/18 9:00:00 CDTNotes: Apply only once for up to 12 hours in a 24-hour period (12 hours on and 12 hours off). (Same as: Lidoderm) "Remove old patch before application of new patch" No Longer Active 04/23/2018 [facility] cyclobenzaprine 5 mg, 0.5 tab, Route: PO, Drug form: TAB, TID, Dosing Weight 59.545, kg, PRN Spasm, Start date: 04/23/18 4:27:00 CDT, Duration: 30 day, Stop date: 05/23/18 4:26:00 CDTNotes: (Same As: Flexeril) No Longer Active 04/23/2018 [facility] Acetaminophen 650 mg, 2 tab, Route: PO, Drug form: TAB, Q4H, Dosing Weight 59.545, kg, PRN Pain 1-3/Temp > 100.4 F, Start date: 04/22/18 23:07:00 CDT, Duration: 30 day, Stop date: 05/22/18 23:06:00 CDTNotes: Do not exceed 4 gm/day. (Same as: Tylenol) No Longer Active 04/23/2018 [facility] Ondansetron 4 mg, 2 mL, Route: IVP, Drug form: INJ, Q6H, Dosing Weight 59.545, kg, PRN Nausea & Vomiting, Start date: 04/22/18 23:07:00 CDT, Duration: 30 day, Stop date: 05/22/18 23:06:00 CDTNotes: (Same as: Zofran) MEDICATION WASTE Product Size: 4 mg Product Wasted: ___ mg No Longer Active 04/23/2018 [facility] Ceftriaxone 1 gm, Route: IVPB, ONCE, Dosing Weight 56.818, kg, Priority: STAT, Start date: 04/22/18 20:30:00 CDT, Stop date: 04/22/18 20:30:00 CDT, ABX Indication: Urinary Tract Infection Inactive 04/23/2018 [facility] Acetaminophen 325 MG / Hydrocodone Bitartrate 5 MG Oral Tablet [Esbon 5/325] 1 tab, Route: PO, Drug Form: TAB, Dosing Weight 60.909, kg, ONCE, STAT, Start date: 04/13/18 15:48:00 CDT, Stop date: 04/13/18 15:48:00 CDTNotes: (Same as: Esbon 325/5) Do not exceed 4gm/day of acetaminophen. Inactive 04/13/2018 [facility] Tylenol 975 mg, 3 tab, Route: [...] date Oral Active 03/28/2018 SNF: [facility] MetroNIDAZOLE Tablet 500 MG Give 500 mg by mouth three times a day for diverticulitis needs stop date Oral Active 03/28/2018 SNF: [facility] Xarelto Tablet 10 MG Give 1 tablet by mouth one time a day related to UNSPECIFIED FRACTURE OF LEFT FEMUR, SEQUELA (S72.92XS) Oral Active 03/13/2018 SNF: [facility] Lidocaine Patch 5 % Apply to hip topically one time a day for pain and remove per schedule External Active 03/12/2018 SNF: [facility] Enoxaparin Sodium Solution 40 MG/0.4ML Inject 0.4 ml subcutaneously one time a day for Prophylactic for 2 Days Subcutaneous Active 03/12/2018 SNF: [facility] Levaquin Tablet 500 MG Give 1 tablet by mouth one time a day for Prophylactic for 7 Days Oral Active 03/12/2018 SNF: [facility] Metoprolol Tartrate Tablet Give 12.5 mg by mouth two times a day for HTN Hold for SBP less than 110, HR less than 60 Oral Active 03/11/2018 SNF: [facility] Cyclobenzaprine HCl Tablet 5 MG Give 1 tablet by mouth every 8 hours as needed for Spasm Oral Active 03/11/2018 SNF: [facility] Esbon Tablet 7.5-325 MG Give 1 tablet by mouth every 6 hours as needed for pain Oral Active 03/11/2018 SNF: [facility] Medno[facility] Levofloxacin 500 MG Oral Tablet [Levaquin] 500 mg=1 tab, PO, Q24H, X 7 day, # 7 tab, 0 Refill(s) Active 03/11/2018 [facility] cyclobenzaprine 10 mg oral tablet 5 mg=0.5 tab, PO, TID, PRN Spasm, 0 Refill(s) Active 03/11/2018 [facility] metoprolol tartrate 25 mg oral tablet 12.5 mg=0.5 tab, PO, Q12H, 0 Refill(s) Active 03/11/2018 [facility] Potassium Chloride 40 mEq, 2 tab, [...] Patient’s with feeding tube less than 14 [place] (Dobhoff, J-tube etc) and pediatric and patients. With food and full glass of water Inactive 03/11/2018 [facility] metoprolol tartrate 12.5 mg, 0.5 tab, Route: PO, Drug form: TAB, Q12H, Dosing Weight 60.909, kg, Start date: 03/11/18 9:00:00 CDT, Duration: 30 day, Stop date: 04/09/18 21:00:00 CDTNotes: (Same as: Lopressor) Inactive 03/11/2018 [facility] Melatonin 3 mg, 1 tab, Route: PO, Drug form: TAB, Bedtime, Dosing Weight 60.909, kg, PRN Sleep, Start date: 03/10/18 14:42:00 CDT, Duration: 30 day, Stop date: 04/09/18 14:41:00 CDTNotes: (Same as: Melatonin) No Longer Active 03/10/2018 [facility] Tylenol 650 mg, 2 tab, Route: PO, Drug form: TAB, Q6H, Dosing Weight 60.909, kg, PRN Pain Score 4-6, Start date: 03/10/18 14:42:00 CDT, Duration: 30 day, Stop date: 04/09/18 14:41:00 CDTNotes: Do not exceed 4 gm/day. (Same as: Tylenol) No Longer Active 03/10/2018 [facility] Zosyn 3.375 gm, Route: IVPB, [id number], Dosing Weight 60.909, kg, CrCl >=20 ml/min infuse over 4 hours, Start date: 03/09/18 20:00:00 CDT, Duration: 10 day, Stop date: 03/19/18 12:00:00 CDT, ABX Indication: Other (specify in Comments)Notes: (Same as: Zosyn) Dosing based on Piperacillin component MEDICATION WASTE Product Size: 3375 mg Product Wasted: ___ mg No Longer Active 03/10/2018 [facility] Lidocaine 0.05 MG/MG Transdermal Patch 1 patch, TOP, Daily, 0 Refill(s) Active 03/09/2018 [facility] Enoxaparin 40 mg=0.4 mL, SUB-Q, [id number], 0 Refill(s) Active 03/09/2018 [facility] metoprolol extended release 12.5 mg, 0.5 tab, Route: PO, Drug form: ERTAB, Q12H, Start date: 03/08/18 21:00:00 CDT, Duration: 30 day, Stop date: 04/07/18 9:00:00 CDTNotes: (Same as: Toprol XL) Do Not Crush No Longer Active 03/09/2018 [facility] metoprolol 25 mg oral tablet, extended release 25 mg=1 tab, PO, Daily, # 30 tab, 0 Refill(s) No Longer Active 03/08/2018 [facility] Acetaminophen 325 MG / Hydrocodone Bitartrate 7.5 MG Oral Tablet [Esbon 7.5/325] 1 tab, Route: PO, Drug Form: TAB, Dosing Weight 60.909, kg, Q6H, PRN Pain Score 4-6, Start date: 03/08/18 12:53:00 CDT, Duration: 30 day, Stop date: 04/07/18 12:52:00 CDTNotes: Same as Esbon 325-7.5mg Do not exceed 4gm/day of acetaminophen. No Longer Active 03/08/2018 [facility] Acetaminophen 325 MG / Hydrocodone Bitartrate 5 MG Oral Tablet [Esbon 5/325] 1 tab, Route: PO, Drug Form: TAB, Dosing Weight 60.909, kg, Q6H, PRN Pain Score 1-3, Start date: 03/07/18 17:26:00 CDT, Duration: 30 day, Stop date: 04/06/18 17:25:00 CDTNotes: (Same as: Esbon 325/5) Do not exceed 4gm/day of acetaminophen. No Longer Active 03/07/2018 [facility] Morphine 6 mg, 3 mL, Route: PO, Drug form: SOLN, Q4H, Dosing Weight 60.909, kg, PRN Pain Score 7-10, Start date: 03/07/18 17:26:00 CDT, Stop date: 04/06/18 17:25:00 CDTNotes: (Same as:MORPhine Sulfate) No Longer Active 03/07/2018 [facility] normal saline 0.9% IV 250 mL 250 mL, Rate: 30 ml/hr, Infuse over: 8.3 hr, Route: IV, Dosing Weight 60.909 kg, Total Volume: 250, Start date: 03/07/18 6:23:00 CDT, Duration: 1 day, Stop date: 03/08/18 6:22:00 CDT, 1.65, m2 No Longer Active 03/07/2018 [facility] remove patch Route: TOP, Bedtime, Drug form: ERFILM, Start date: 03/06/18 21:00:00 CDT, Duration: 30 day, Stop date: 04/04/18 21:00:00 CDTNotes: Remove patch 12 hours after application each day. No Longer Active 03/07/2018 [facility] Tylenol 1,000 mg, 2 tab, Route: PO, Drug form: TAB, TID, Dosing Weight 60.909, kg, Start date: 03/06/18 12:00:00 CDT, Duration: 30 day, Stop date: 04/05/18 6:00:00 CDTNotes: Max acetaminophen 4000 mg/day (4 gm/day). (Same as: Tylenol Extra Strength) No Longer Active 03/06/2018 [facility] pantoprazole 40 mg, 1 tab, Route: PO, Drug form: ECTAB, Daily, Dosing Weight 60.909, kg, Start date: 03/06/18 9:00:00 CDT, Duration: 30 day, Stop date: 04/04/18 9:00:00 CDTNotes: Tablet should not be chewed or cr ushed. (Same as: Protonix) No Longer Active 03/06/2018 [facility] Docusate Sodium 100 MG Oral Capsule 100 mg, 1 cap, Route: PO, Drug form: CAP, BID, Dosing Weight 60.909, kg, Start date: 03/06/18 9:00:00 CDT, Duration: 30 day, Stop date: 04/04/18 17:00:00 CDTNotes: (Same as: Colace) (Do Not Crush) No Longer Active 03/06/2018 [facility] Flexeril 5 mg, 0.5 tab, Route: PO, Drug form: TAB, TID, Dosing Weight 60.909, kg, PRN Spasm, Start date: 03/06/18 9:00:00 CDT, Duration: 30 day, Stop date: 04/05/18 8:59:00 CDTNotes: (Same As: Flexeril) No Longer Active 03/06/2018 [facility] Lidocaine 0.05 MG/MG Transdermal Patch 1 patch, Route: TOP, Daily, Drug form: FILM, Start date: 03/06/18 9:00:00 CDT, Duration: 30 day, Stop date: 04/04/18 9:00:00 CDTNotes: Apply only once for up to 12 hours in a 24-hour period (12 hours on and 12 hours off). (Same as: Lidoderm) "Remove old patch before application of new patch" No Longer Active 03/06/2018 [facility] Enoxaparin 40 mg, 0.4 mL, Route: SUB-Q, Drug form: INJ, [id number], Dosing Weight 60.909, kg, Start date: 03/06/18 9:00:00 CDT, Stop date: 04/03/18 9:00:00 CDTNotes: (Same as: Lovenox) No Longer Active 03/06/2018 [facility] Tylenol 1,000 mg, 2 tab, Route: PO, Drug form: TAB, Daily, Dosing Weight 60.909, kg, PRN Pain Score 4-6, Start date: 03/06/18 8:57:00 CDT, Duration: 30 day, Stop date: 04/05/18 8:56:00 CDTNotes: Max acetaminophen 4000 mg/day (4 gm/day). (Same as: Tylenol Extra Strength) No Longer Active 03/06/2018 [facility] Cefazolin 1 gm, Route: IVP, Q8H, Dosing Weight 60.909, kg, Start date: 03/06/18 1:00:00 CDT, Duration: 1 doses or times, Stop date: 03/06/18 1:00:00 CDT, ABX Indication: Surgical ProphylaxisNotes: (Same As: William Win) MEDICATION WASTE Product Size: 1000 mg Product Wasted: ___ mg Inactive 03/06/2018 [facility] Clindamycin 600 mg, 50 mL, Route: IVPB, Drug form: INJ, [id number], Dosing Weight 60.909, kg, Start date: 03/05/18 21:00:00 CDT, Duration: 1 doses or times, Stop date: 03/05/18 21:00:00 CDT, ABX Indication: Surgical Prophylaxis Inactive 03/06/2018 [facility] Labetalol 10 mg, Route: IVP, Q5Min, Dosing Weight 60.909, kg, PRN Elevated BP, Start date: 03/05/18 18:45:00 CDT, Duration: 5 doses or times, Stop date: Limited # of times Inactive 03/05/2018 [facility] Acetaminophen 1,000 mg, Route: PO, Drug form: TAB, ONCE, Dosing Weight 60.909, kg, PRN Pain Score 1-3, Start date: 03/05/18 18:45:00 CDT Inactive 03/05/2018 [facility] Hydralazine 10 mg, Route: IVP, Q20Min, Dosing Weight 60.909, kg, PRN Elevated BP, Start date: 03/05/18 18:45:00 CDT, Duration: 2 doses or times, Stop date: Limited # of times Inactive 03/05/2018 [facility] esmolol 10 mg, Route: IVP, Q5Min, Dosing Weight 60.909, kg, PRN Other -See Comment, Start date: 03/05/18 18:45:00 CDT, Duration: 5 doses or times, Stop date: Limited # of times Inactive 03/05/2018 [facility] Calcium Chloride 0.0014 MEQ/ML / Potassium Chloride 0.004 MEQ/ML / Sodium Chloride 0.103 MEQ/ML / Sodium Lactate 0.028 MEQ/ML Injectable Solution 1,000 mL, Rate: 125 ml/hr, Infuse over: 8 hr, Route: IV, Dosing Weight 60.909 kg, Total Volume: 1,000, Start date: 03/05/18 18:45:00 CDT, Duration: 30 day, Stop date: 04/04/18 18:44:00 CDT, 1.65, m2 Inactive 03/05/2018 [facility] Diphenhydramine 12.5 mg, Route: IVP, Drug form: INJ, Q6H, Dosing Weight 60.909, kg, PRN Itching, Start date: 03/05/18 18:45:00 CDT, Duration: 30 day, Stop date: 04/04/18 18:44:00 CDT Inactive 03/05/2018 [facility] Albuterol 0.83 MG/ML Inhalant Solution 2.49 mg, Route: NEB, Q20Min, Dosing Weight 60.909, kg, PRN Wheezing, Priority: STAT, Start date: 03/05/18 18:45:00 CDT, Duration: 30 day, Stop date: 04/04/18 18:44:00 CDT Inactive 03/05/2018 [facility] Flumazenil 0.2 mg, Route: IVP, PRN, Dosing Weight 60.909, kg, PRN Benzodiazepine Reversal, Initial dose, Start date: 03/05/18 18:45:00 CDT, Duration: 30 day, Stop date: 04/04/18 18:44:00 CDT Inactive 03/05/2018 [facility] Naloxone 0.4 mg, Route: IVP, Q2MIN, Dosing Weight 60.909, kg, PRN Narcotic Reversal, Start date: 03/05/18 18:45:00 CDT, Duration: 8 doses or times, Stop date: Limited # of times Inactive 03/05/2018 [facility] Hydromorphone 0.5 mg, Route: IVP, Q5Min, Dosing Weight 60.909, kg, PRN Pain Score 7-10, Start date: 03/05/18 18:45:00 CDT, Duration: 4 doses or times, Stop date: Limited # of times Inactive 03/05/2018 [facility] Fentanyl 50 microgram, Route: IVP, Q5Min, Dosing Weight 60.909, kg, PRN Pain Score 7-10, Priority: Routine, Start date: 03/05/18 18:45:00 CDT, Duration: 2 doses or times, Stop date: Limited # of times Inactive 03/05/2018 [facility] Morphine 4 mg, Route: IVP, Q5Min, Dosing Weight 60.909, kg, PRN Pain Score 7-10, Start date: 03/05/18 18:45:00 CDT, Duration: 3 doses or times, Stop date: Limited # of times Inactive 03/05/2018 [facility] Oxycodone 5 mg, Route: PO, Drug form: TAB, Q4H, Dosing Weight 60.909, kg, PRN Pain Score 4-6, Start date: 03/05/18 18:45:00 CDT, Duration: 30 day, Stop date: 04/04/18 18:44:00 CDT Inactive 03/05/2018 [facility] Meperidine 12.5 mg, Route: IVP, Q30Min, Dosing Weight 60.909, kg, PRN Other -See Comment, For shivering, Start date: 03/05/18 18:45:00 CDT, Duration: 2 doses or times, Stop date: Limited # of times Inactive 03/05/2018 [facility] Dexamethasone 4 mg, Route: IVP, ONCE, Dosing Weight 60.909, kg, PRN Nausea & Vomiting, Start date: 03/05/18 18:45:00 CDT Inactive 03/05/2018 [facility] Ondansetron 4 mg, Route: IVP, ONCE, Dosing Weight 60.909, kg, PRN Nausea & Vomiting, Start date: 03/05/18 18:45:00 CDT Inactive 03/05/2018 [facility] Dulcolax Laxative 5 mg, 1 tab, Route: PO, Drug form: ECTAB, Q24H, Dosing Weight 60.909, kg, PRN Constipation, Start date: 03/05/18 18:37:00 CDT, Duration: 30 day, Stop date: 04/04/18 18:36:00 CDTNotes: (Same As: Dulcolax , Correctol) (Do Not Crush) "Do Not Crush" No Longer Active 03/05/2018 [facility] Diphenhydramine 12.5 mg, 0.5 tab, Route: PO, Drug form: TAB, Q6H, Dosing Weight 60.909, kg, PRN Itching, Start date: 03/05/18 18:37:00 CDT, Duration: 30 day, Stop date: 04/04/18 18:36:00 CDT No Longer Active 03/05/2018 [facility] Al hydroxide/Mg hydroxide/simethicone 200 mg-200 mg-20 mg/5 mL oral suspension 30 ml, Route: PO, Drug Form: SUSP, Dosing Weight 60.909, kg, Q4H, PRN Indigestion, Start date: 03/05/18 18:37:00 CDT, Duration: 30 day, Stop date: 04/04/18 18:36:00 CDTNotes: (aluminum hydroxide-magnesium hyd- simethicone [phone]/5ml 30 ml ud GRISELDA) No Longer Active 03/05/2018 [facility] Lactated Ringers IV 1,000 mL 1,000 mL, Rate: 75 ml/hr, Infuse over: 13.3 hr, Route: IV, Dosing Weight 60.909 kg, Total Volume: 1,000, Start date: 03/05/18 18:37:00 CDT, Duration: 30 day, Stop date: 04/04/18 18:36:00 CDT, 1.65, m2 No Longer Active 03/05/2018 [facility] Acetaminophen 650 mg, 2 tab, Route: PO, Drug form: TAB, Q4H, Dosing Weight 60.909, kg, PRN Pain 1-3/Temp > 100.4 F, Start date: 03/05/18 18:37:00 CDT, Duration: 30 day, Stop date: 04/04/18 18:36:00 CDTNotes: Do not exceed 4 gm/day. (Same as: Tylenol) No Longer Active 03/05/2018 [facility] rocuronium (ANES) Route: IV, Drug form: INJ, ONCE, Stop date: 03/05/18 18:33:00 CDT Inactive 03/05/2018 [facility] fentaNYL (ANES) Route: IV, Drug form: INJ, ONCE, Stop date: 03/05/18 18:33:00 CDT Inactive 03/05/2018 [facility] ondansetron (ANES) Route: IV, Drug form: INJ, ONCE, Stop date: 03/05/18 18:33:00 CDT Inactive 03/05/2018 [facility] metoprolol (ANES) Route: IV, Drug form: INJ, ONCE, Stop date: 03/05/18 18:33:00 CDT Inactive 03/05/2018 [facility] dexamethasone (ANES) Route: IV, Drug form: INJ, ONCE, Stop date: 03/05/18 18:33:00 CDT Inactive 03/05/2018 [facility] glycopyrrolate (ANES) Route: IV, Drug form: INJ, ONCE, Stop date: 03/05/18 18:33:00 CDT Inactive 03/05/2018 [facility] neostigmine (ANES) Route: IV, Drug form: INJ, ONCE, Stop date: 03/05/18 18:33:00 CDT Inactive 03/05/2018 [facility] esmolol (ANES) Route: IV, Drug form: INJ, ONCE, Stop date: 03/05/18 18:33:00 CDT Inactive 03/05/2018 [facility] Amidate (ANES) Route: IV, Drug form: INJ, ONCE, Stop date: 03/05/18 18:33:00 CDT Inactive 03/05/2018 [facility] norepinephrine (ANES) Route: IV, Drug form: INJ, ONCE, Stop date: 03/05/18 18:03:00 CDT Inactive 03/05/2018 [facility] metoclopramide (ANES) Route: IV, Drug form: INJ, ONCE, Stop date: 03/05/18 18:03:00 CDT Inactive 03/05/2018 [facility] lidocaine (ANES) Route: IV, Drug form: INJ, ONCE, Stop date: 03/05/18 18:03:00 CDT Inactive 03/05/2018 [facility] fentaNYL (ANES) Route: IV, Drug form: INJ, ONCE, Stop date: 03/05/18 17:48:00 CDT Inactive 03/05/2018 [facility] cefOXitin (ANES) Route: IV, Drug form: INJ, ONCE, Stop date: 03/05/18 17:48:00 CDT Inactive 03/05/2018 [facility] propofol (ANES) Route: IV, Drug form: INJ, ONCE, Stop date: 03/05/18 17:48:00 CDT Inactive 03/05/2018 [facility] ceFAZolin (ANES) Route: IV, Drug form: INJ, ONCE, Stop date: 03/05/18 17:38:00 CDT Inactive 03/05/2018 [facility] midazolam (ANES) Route: IV, Drug form: SOLN, ONCE, Stop date: 03/05/18 17:33:00 CDT Inactive 03/05/2018 [facility] metoprolol tartrate 12.5 mg, 0.5 tab, Route: PO, Drug form: TAB, BID, Dosing Weight 60.909, kg, Start date: 03/05/18 17:00:00 CDT, Duration: 30 day, Stop date: 04/04/18 9:00:00 CDTNotes: (Same as: Lopressor) No Longer Active 03/05/2018 [facility] Lactated Ringers Injection IV (ANES) 1000 mL Route: IV, Total Volume: 1,000, Start date: 03/05/18 16:58:00 CDT, Stop date: 03/05/18 17:58:00 CDT Inactive 03/05/2018 [facility] Protonix 40 mg, 1 tab, Route: PO, Drug form: ECTAB, Before Dinner, Dosing Weight 60.909, kg, Start date: 03/05/18 16:30:00 CDT, Duration: 30 day, Stop date: 04/03/18 16:30:00 CDTNotes: Tablet should not be chewed or crushed. (Same as: Protonix) Inactive 03/05/2018 [facility] Hydralazine 10 mg, 0.5 mL, Route: IVP, Drug form: INJ, Q4H, Dosing Weight 60.909, kg, PRN Hypertension, Start date: 03/05/18 10:13:00 CDT, Duration: 30 day, Stop date: 04/04/18 10:12:00 CDTNotes: (Same as: Chichi pena) Push over 5 minutes No Longer Active 03/05/2018 [facility] Melatonin 3 mg, 1 tab, Route: PO, Drug form: TAB, Bedtime, Dosing Weight 60.909, kg, PRN Sleep, Start date: 03/05/18 10:13:00 CDT, Duration: 30 day, Stop date: 04/04/18 10:12:00 CDTNotes: (Same as: Melatonin) No Longer Active 03/05/2018 [facility] Streptococcus pneumoniae serotype 1 capsular antigen diphtheria [id number] protein conjugate vaccine / Streptococcus pneumoniae serotype 14 capsular antigen diphtheria [id number] protein conjugate vaccine / Streptococcus pneumoniae serotype 18C capsular antigen d 0.5 mL, Route: IM, Drug Form: INJ, Daily, Start date: 03/05/18 9:00:00 CDT, Duration: 1 doses or times, Stop date: 03/05/18 9:00:00 CDTNotes: Shake well prior to use (Same as: Prevnar 13) Inactive 03/05/2018 [facility] NURSE please update PT's HEIGHT in [place] when possible NURSE please update PT's HEIGHT in [place] when possible, 1, Drug form: MISC, Route: MISC, Q30Min, 03/05/18 8:00:00 CDT, Duration: 4 doses or times, Stop date: 03/05/18 9:30:00 CDT Inactive 03/05/2018 [facility] Ancef + sterile water 20 mL 2 gm, Route: IV, ONCE, Dosing Weight 60.909, kg, Start date: 03/05/18 7:49:00 CDT, Stop date: 03/05/18 7:49:00 CDT, Surgical Prophylaxis Only; For patients Notes: (Same As: Ancef, Kefzol) MEDICATION WASTE Product Size: 1000 mg Product Wasted: ___ mg Inactive 03/05/2018 [facility] hydromorphone 0.3 mg, 0.3 mL, Route: IV, Drug form: INJ, Q4H, PRN Pain Score 7-10, Start date: 03/05/18 5:00:00 CDT, Duration: 30 day, Stop date: 04/04/18 4:59:00 CDTNotes: Same as: Dilaudid No Longer Active 03/05/2018 [facility] metoprolol tartrate 25 mg, PO, BID, metoprolol 2mg 1/2 tab twice daily per medication bottle, 0 Refill(s) No Longer Active 03/05/2018 [facility] Protonix 40 mg, PO, Daily, # 30 tab, 0 Refill(s) Active 03/05/2018 [facility] Fentanyl 50 microgram, Route: IVP, ONCE, Dosing Weight 66.364, kg, Priority: STAT, Start date: 03/04/18 23:59:00 CDT, Stop date: 03/04/18 23:59:00 CDT No Longer Active 03/05/2018 [facility] Saline Flush 0.9% 10 ml, Route: IVP, Drug Form: INJ, Dosing Weight 66.364, kg, PRN, PRN Line Flush, Start date: 03/04/18 23:58:00 CDT, Duration: 30 day, Stop date: 04/03/18 23:57:00 CDTNotes: (Same as: BD Posiflush) No Longer Active 03/05/2018 [facility] Sodium Chloride 0.9% IV 1,000 mL 1,000 mL, Rate: 75 ml/hr, Infuse over: 13.3 hr, Route: IV, Dosing Weight 66.364 kg, Total Volume: 1,000, Start date: 03/04/18 23:58:00 CDT, Duration: 30 day, Stop date: 04/03/18 23:57:00 CDT No Longer Active 03/05/2018 [facility] Acetaminophen 325 MG / Hydrocodone Bitartrate 5 MG Oral Tablet 2 tab, Route: PO, Drug Form: TAB, Dosing Weight 66.364, kg, Q4H, PRN Pain Score 7-10, Start date: 03/04/18 23:58:00 CDT, Duration: 30 day, Stop date: 04/03/18 23:57:00 CDTNotes: (Same as: Esbon 325/5) Do not exceed 4gm/day of acetaminophen. No Longer Active 03/05/2018 [facility] Morphine 2 mg, Route: IVP, Q4H, Dosing Weight 66.364, kg, PRN Pain Score 7-10, Start date: 03/04/18 23:58:00 CDT, Duration: 30 day, Stop date: 04/03/18 23:57:00 CDT No Longer Active 03/05/2018 [facility] Dilaudid 0.5 mg, 0.5 mL, Route: IVP, Drug form: INJ, ONCE, Dosing Weight 66.364, kg, Priority: STAT, Start date: 03/04/18 23:37:00 CDT, Stop date: 03/04/18 23:37:00 CDTNotes: Same as: Dilaudid No Longer Active 03/05/2018 [facility] Fentanyl 50 microgram, Route: IVP, ONCE, Dosing Weight 66.364, kg, Priority: STAT, Start date: 03/04/18 21:49:00 CDT, Stop date: 03/04/18 21:49:00 CDT Inactive 03/05/2018 [facility] Allergies, Adverse Reactions, Alerts Substance Category Reaction Severity Reaction type Status Date Reported Comments Source CODINE Assertion Drug allergy Active 01/10/2003 [facility] Tramadol 03/11/2018 [facility]: [facility] Codeine 03/12/2018 [facility]: [facility] Penicillin 03/12/2018 [facility]: [facility] [place] [facility] PCN Assertion Drug allergy Active [facility] traMADol Assertion Drug allergy Active [facility] Immunizations Immunization Date Given Site Status Last Updated Comments Source pneumococcal 13-valent vaccine 03/05/2018 Left deltoid completed Meaghan [facility] Results Order Name Results Value Reference Range Date Interpretation Comments Source CHEM PANEL A/G Ratio 1.0 0.7 - 1.6 04/26/2018 [facility] CHEM PANEL AGAP 8.9 10.0 - 20.0 04/26/2018 [facility] CHEM PANEL Globulin 3.1 2.7 - 4.2 04/26/2018 [facility] CHEM PANEL B/C Ratio 19 6 - 25 04/26/2018 [facility] CHEM PANEL eGFR 80 04/26/2018 Result Comment: [...] should be multiplied by the estimated BMI. [facility] CHEM PANEL Alk Phos 104 39 - 136 04/26/2018 [facility] CHEM PANEL Bili Total 0.3 0.2 - 1.3 04/26/2018 [facility] CHEM PANEL AST 14 0 - 37 04/26/2018 [facility] CHEM PANEL Sodium Lvl 140 135 - 145 04/26/2018 [facility] CHEM PANEL BUN 13 7 - 22 04/26/2018 [facility] CHEM PANEL Creatinine Lvl 0.67 0.50 - 1.40 04/26/2018 [facility] CHEM PANEL Glucose Lvl 80 70 - 99 04/26/2018 [facility] CHEM PANEL Albumin Lvl 3.0 3.5 - 5.0 04/26/2018 [facility] CHEM PANEL ALT 12 0 - 65 04/26/2018 [facility] CHEM PANEL CO2 27 24 - 32 04/26/2018 [facility] CHEM PANEL Calcium Lvl 8.7 8.5 - 10.5 04/26/2018 [facility] CHEM PANEL Potassium Lvl 3.9 3.5 - 5.1 04/26/2018 [facility] CHEM PANEL Chloride Lvl 108 95 - 109 04/26/2018 [facility] CHEM PANEL Total Protein 6.1 6.4 - 8.4 04/26/2018 [facility] HEMATOLOGY MCV 91.1 80.0 - 98.0 04/26/2018 [facility] HEMATOLOGY Hct 38.5 36.0 - 48.0 04/26/2018 [facility] HEMATOLOGY Hgb 12.9 12.0 - 16.0 04/26/2018 [facility] [place] MCHC 33.5 32.0 - 36.0 04/26/2018 [facility] [place] MCH 30.5 27.0 - 31.0 04/26/2018 [facility] [place] MPV 8.4 7.4 - 10.4 04/26/2018 [facility] [place] [facility] Platelet 184 133 - 450 04/26/2018 [facility] HEMATOLOGY RDW 16.2 11.5 - 14.5 04/26/2018 [facility] HEMATOLOGY RBC 4.23 4.20 - 5.40 04/26/2018 [facility] HEMATOLOGY WBC 5.2 3.7 - 10.4 04/26/2018 [facility] HEMATOLOGY Segs-Bands # 2.9 1.5 - 8.1 04/26/2018 [facility] HEMATOLOGY Eosinophils # 0.1 0.0 - 0.5 04/26/2018 [facility] HEMATOLOGY Monocytes # 0.6 0.0 - 0.8 04/26/2018 [facility] HEMATOLOGY Lymphocytes # 1.5 1.0 - 5.5 04/26/2018 [facility] HEMATOLOGY Segs 55.8 45.0 - 75.0 04/26/2018 [facility] HEMATOLOGY Basophils 0.6 0.0 - 1.0 04/26/2018 [facility] HEMATOLOGY Eosinophils 2.9 0.0 - 4.0 04/26/2018 [facility] [place] Monocytes 11.5 2.0 - 12.0 04/26/2018 [facility] [place] Lymphocytes 29.2 20.0 - 40.0 04/26/2018 [facility] CHEM PANEL eGFR 74 04/25/2018 Result Comment: [...] should be multiplied by the estimated BMI. [facility] CHEM PANEL Bili Total 0.5 0.2 - 1.3 04/25/2018 [facility] CHEM PANEL B/C Ratio 18 6 - 25 04/25/2018 [facility] CHEM PANEL Albumin Lvl 2.8 3.5 - 5.0 04/25/2018 [facility] CHEM PANEL Total Protein 6.2 6.4 - 8.4 04/25/2018 [facility] CHEM PANEL Globulin 3.4 2.7 - 4.2 04/25/2018 [facility] CHEM PANEL ALT 13 0 - 65 04/25/2018 [facility] CHEM PANEL A/G Ratio 0.8 0.7 - 1.6 04/25/2018 [facility] CHEM PANEL Chloride Lvl 110 95 - 109 04/25/2018 [facility] CHEM PANEL CO2 24 24 - 32 04/25/2018 [facility] CHEM PANEL AGAP 11.9 10.0 - 20.0 04/25/2018 [facility] CHEM PANEL Calcium Lvl 8.7 8.5 - 10.5 04/25/2018 [facility] CHEM PANEL Alk Phos 104 39 - 136 04/25/2018 [facility] CHEM PANEL AST 13 0 - 37 04/25/2018 [facility] CHEM PANEL Potassium Lvl 3.9 3.5 - 5.1 04/25/2018 [facility] CHEM PANEL Sodium Lvl 142 135 - 145 04/25/2018 [facility] CHEM PANEL Glucose Lvl 83 70 - 99 04/25/2018 [facility] CHEM PANEL Creatinine Lvl 0.74 0.50 - 1.40 04/25/2018 [facility] CHEM PANEL BUN 13 7 - 22 04/25/2018 [facility] HEMATOLOGY Eosinophils 2.6 0.0 - 4.0 04/25/2018 [facility] HEMATOLOGY Monocytes 11.9 2.0 - 12.0 04/25/2018 [facility] HEMATOLOGY Lymphocytes 24.7 20.0 - 40.0 04/25/2018 [facility] HEMATOLOGY Monocytes # 0.6 0.0 - 0.8 04/25/2018 [facility] HEMATOLOGY Eosinophils # 0.1 0.0 - 0.5 04/25/2018 [facility] HEMATOLOGY Segs-Bands # 3.2 1.5 - 8.1 04/25/2018 [facility] HEMATOLOGY Basophils 0.9 0.0 - 1.0 04/25/2018 [facility] HEMATOLOGY Lymphocytes # 1.3 1.0 - 5.5 04/25/2018 [facility] HEMATOLOGY Segs 59.9 45.0 - 75.0 04/25/2018 [facility] HEMATOLOGY RDW 16.8 11.5 - 14.5 04/25/2018 [facility] HEMATOLOGY Platelet 187 133 - 450 04/25/2018 [facility] HEMATOLOGY MCH 30.8 27.0 - 31.0 04/25/2018 [facility] HEMATOLOGY MCHC 33.5 32.0 - 36.0 04/25/2018 [facility] HEMATOLOGY MPV 8.5 7.4 - 10.4 04/25/2018 [facility] HEMATOLOGY WBC 5.3 3.7 - 10.4 04/25/2018 [facility] HEMATOLOGY Hct 39.0 36.0 - 48.0 04/25/2018 [facility] HEMATOLOGY MCV 91.8 80.0 - 98.0 04/25/2018 [facility] HEMATOLOGY RBC 4.25 4.20 - 5.40 04/25/2018 [facility] HEMATOLOGY Hgb 13.1 12.0 - 16.0 04/25/2018 [facility] CHEM PANEL eGFR 77 04/24/2018 Result Comment: [...] should be multiplied by the estimated BMI. [facility] CHEM PANEL Calcium Lvl 8.9 8.5 - 10.5 04/24/2018 [facility] CHEM PANEL Chloride Lvl 110 95 - 109 04/24/2018 [facility] CHEM PANEL Alk Phos 101 39 - 136 04/24/2018 [facility] CHEM PANEL AST 9 0 - 37 04/24/2018 [facility] CHEM PANEL CO2 27 24 - 32 04/24/2018 [facility] CHEM PANEL Albumin Lvl 3.1 3.5 - 5.0 04/24/2018 [facility] CHEM PANEL Total Protein 6.1 6.4 - 8.4 04/24/2018 [facility] CHEM PANEL ALT 7 0 - 65 04/24/2018 [facility] CHEM PANEL Bili Total 0.3 0.2 - 1.3 04/24/2018 [facility] CHEM PANEL Potassium Lvl 4.8 3.5 - 5.1 04/24/2018 [facility] CHEM PANEL Glucose Lvl 77 70 - 99 04/24/2018 [facility] CHEM PANEL BUN 13 7 - 22 04/24/2018 [facility] CHEM PANEL Sodium Lvl 145 135 - 145 04/24/2018 [facility] CHEM PANEL Creatinine Lvl 0.72 0.50 - 1.40 04/24/2018 [facility] CHEM PANEL A/G Ratio 1.0 0.7 - 1.6 04/24/2018 [facility] CHEM PANEL AGAP 12.8 10.0 - 20.0 04/24/2018 [facility] CHEM PANEL Globulin 3.0 2.7 - 4.2 04/24/2018 [facility] CHEM PANEL B/C Ratio 18 6 - 25 04/24/2018 [facility] CHEM PANEL Procalcitonin Lvl <0.05 ng/mL 0.00 - 0.10 04/24/2018 [facility] HEMATOLOGY Hct 38.8 36.0 - 48.0 04/24/2018 [facility] HEMATOLOGY MCHC 32.2 32.0 - 36.0 04/24/2018 [facility] [place] [facility] MCH 29.7 27.0 - 31.0 04/24/2018 [facility] HEMATOLOGY MCV 92.2 80.0 - 98.0 04/24/2018 [facility] HEMATOLOGY Hgb 12.5 12.0 - 16.0 04/24/2018 [facility] HEMATOLOGY Platelet 211 133 - 450 04/24/2018 [facility] HEMATOLOGY MPV 8.8 7.4 - 10.4 04/24/2018 [facility] HEMATOLOGY RDW 16.8 11.5 - 14.5 04/24/2018 [facility] HEMATOLOGY WBC 5.5 3.7 - 10.4 04/24/2018 [facility] HEMATOLOGY RBC 4.21 4.20 - 5.40 04/24/2018 [facility] HEMATOLOGY Eosinophils 3.2 0.0 - 4.0 04/24/2018 [facility] HEMATOLOGY Monocytes 11.3 2.0 - 12.0 04/24/2018 [facility] HEMATOLOGY Lymphocytes 27.7 20.0 - 40.0 04/24/2018 [facility] HEMATOLOGY Basophils 0.6 0.0 - 1.0 04/24/2018 [facility] HEMATOLOGY Segs-Bands # 3.2 1.5 - 8.1 04/24/2018 [facility] HEMATOLOGY Eosinophils # 0.2 0.0 - 0.5 04/24/2018 [facility] HEMATOLOGY Monocytes # 0.6 0.0 - 0.8 04/24/2018 [facility] HEMATOLOGY Lymphocytes # 1.5 1.0 - 5.5 04/24/2018 [facility] HEMATOLOGY Segs 57.2 45.0 - 75.0 04/24/2018 [facility] CHEM PANEL Lactic Acid Lvl 1.0 0.5 - 2.2 04/23/2018 [facility] URINE AND STOOL UA Urobilinogen <=1.0 mg/dL 0.1 - 1.0 04/23/2018 [facility] URINE AND STOOL UA Leuk Est Large *ABN* (04/22/18 8:07 PM) Negative 04/23/2018 [facility] URINE AND STOOL UA Sq Epi Occasional /LPF Few /LPF 04/23/2018 [facility] URINE AND STOOL UA WBC 44 0 - 5 04/23/2018 [facility] URINE AND STOOL UA RBC 6 0 - 2 04/23/2018 [facility] URINE AND STOOL UA Bacteria Occasional /HPF None Seen /HPF 04/23/2018 [facility] URINE AND STOOL UA Mucus Few /LPF None Seen /LPF 04/23/2018 [facility] URINE AND STOOL UA Blood Moderate *ABN* (04/22/18 8:07 PM) Negative 04/23/2018 [facility] URINE AND STOOL UA Glucose Negative mg/dL Negative mg/dL 04/23/2018 [facility] URINE AND STOOL UA Ketones Negative mg/dL Negative mg/dL 04/23/2018 [facility] URINE AND STOOL UA Bili Negative *NA* (04/22/18 8:07 PM) Negative 04/23/2018 [facility] URINE AND STOOL UA Nitrite Positive *ABN* (04/22/18 8:07 PM) Negative 04/23/2018 [facility] URINE AND STOOL UA pH 5.0 5.0 - 8.0 04/23/2018 [facility] URINE AND STOOL UA Spec Grav 1.016 <=1.030 04/23/2018 [facility] URINE AND STOOL UA Turbidity Clear (04/22/18 8:07 PM) Clear 04/23/2018 [facility] URINE AND STOOL UA Color Yellow *NA* (04/22/18 8:07 PM) Yellow 04/23/2018 [facility] URINE AND STOOL UA Protein Negative mg/dL Negative mg/dL 04/23/2018 [facility] CARDIAC ENZYMES Troponin-I <0.02 0.00 - 0.40 04/23/2018 [facility] URINE AND STOOL UA Urobilinogen <=1.0 mg/dL 0.1 - 1.0 04/13/2018 [facility] URINE AND STOOL UA Mucus Few /LPF None Seen /LPF 04/13/2018 [facility] URINE AND STOOL UA WBC 4 0 - 5 04/13/2018 [facility] URINE AND STOOL UA Sq Epi Occasional /LPF Few /LPF 04/13/2018 [facility] URINE AND STOOL UA RBC 6 0 - 2 04/13/2018 [facility] URINE AND STOOL UA Bacteria Occasional /HPF None Seen /HPF 04/13/2018 [facility] URINE AND STOOL UA pH 6.0 5.0 - 8.0 04/13/2018 [facility] URINE AND STOOL UA Spec Grav 1.014 <=1.030 04/13/2018 [facility] URINE AND STOOL UA Blood Moderate *ABN* (04/13/18 2:03 PM) Negative 04/13/2018 [facility] URINE AND STOOL UA Nitrite Negative (04/13/18 2:03 PM) Negative 04/13/2018 [facility] URINE AND STOOL UA Leuk Est Small *ABN* (04/13/18 2:03 PM) Negative 04/13/2018 [facility] URINE AND STOOL UA Color Yellow *NA* (04/13/18 2:03 PM) Yellow 04/13/2018 [facility] URINE AND STOOL UA Turbidity Clear (04/13/18 2:03 PM) Clear 04/13/2018 [facility] URINE AND STOOL UA Glucose Negative mg/dL Negative mg/dL 04/13/2018 [facility] URINE AND STOOL UA Protein Negative mg/dL Negative mg/dL 04/13/2018 [facility] URINE AND STOOL UA Bili Negative *NA* (04/13/18 2:03 PM) Negative 04/13/2018 [facility] URINE AND STOOL UA Ketones Negative mg/dL Negative mg/dL 04/13/2018 [facility] ELECTROLYTES AGAP 10.6 10.0 - 20.0 03/11/2018 [facility] ELECTROLYTES eGFR 85 03/11/2018 Result Comment: The [...] should be multiplied by the estimated BMI. [facility] ELECTROLYTES BUN 14 7 - 22 03/11/2018 [facility] ELECTROLYTES CO2 26 24 - 32 03/11/2018 [facility] ELECTROLYTES Calcium Lvl 7.9 8.5 - 10.5 03/11/2018 [facility] ELECTROLYTES Potassium Lvl 3.6 3.5 - 5.1 03/11/2018 [facility] ELECTROLYTES Sodium Lvl 144 135 - 145 03/11/2018 [facility] ELECTROLYTES Chloride Lvl 111 95 - 109 03/11/2018 [facility] ELECTROLYTES Creatinine Lvl 0.56 0.50 - 1.40 03/11/2018 [facility] ELECTROLYTES Glucose Lvl 83 70 - 99 03/11/2018 [facility] HEMATOLOGY MPV 7.8 7.4 - 10.4 03/11/2018 [facility] HEMATOLOGY WBC 5.9 3.7 - 10.4 03/11/2018 [facility] HEMATOLOGY Platelet 214 133 - 450 03/11/2018 [facility] RDW 16.1 11.5 - 14.5 03/11/2018 [facility] [place] MCHC 33.0 32.0 - 36.0 03/11/2018 [facility] HEMATOLOGY Hct 26.7 36.0 - 48.0 03/11/2018 [facility] [place] RBC 3.07 4.20 - 5.40 03/11/2018 [facility] [place] MCV 86.9 80.0 - 98.0 03/11/2018 [facility] HEMATOLOGY Hgb 8.8 12.0 - 16.0 03/11/2018 [facility] [place] MCH 28.7 27.0 - 31.0 03/11/2018 [facility] CHEM PANEL eGFR 86 03/10/2018 Result Comment: [...] should be multiplied by the estimated BMI. [facility] CHEM PANEL Chloride Lvl 109 95 - 109 03/10/2018 [facility] CHEM PANEL CO2 28 24 - 32 03/10/2018 [facility] CHEM PANEL Calcium Lvl 7.9 8.5 - 10.5 03/10/2018 [facility] CHEM PANEL Sodium Lvl 143 135 - 145 03/10/2018 [facility] CHEM PANEL Creatinine Lvl 0.55 0.50 - 1.40 03/10/2018 [facility] CHEM PANEL Potassium Lvl 3.3 3.5 - 5.1 03/10/2018 [facility] CHEM PANEL BUN 13 7 - 22 03/10/2018 [facility] CHEM PANEL Glucose Lvl 88 70 - 99 03/10/2018 [facility] CHEM PANEL AGAP 9.3 10.0 - 20.0 03/10/2018 [facility] HEMATOLOGY RBC 3.02 4.20 - 5.40 03/10/2018 [facility] HEMATOLOGY Hgb 8.8 12.0 - 16.0 03/10/2018 [facility] HEMATOLOGY WBC 9.2 3.7 - 10.4 03/10/2018 [facility] HEMATOLOGY MPV 7.9 7.4 - 10.4 03/10/2018 [facility] HEMATOLOGY RDW 16.2 11.5 - 14.5 03/10/2018 [facility] HEMATOLOGY Platelet 187 133 - 450 03/10/2018 [facility] HEMATOLOGY Hct 26.0 36.0 - 48.0 03/10/2018 [facility] HEMATOLOGY MCHC 33.7 32.0 - 36.0 03/10/2018 [facility] HEMATOLOGY MCH 29.1 27.0 - 31.0 03/10/2018 [facility] HEMATOLOGY MCV 86.3 80.0 - 98.0 03/10/2018 [facility] ELECTROLYTES AGAP 11.7 10.0 - 20.0 03/09/2018 [facility] ELECTROLYTES eGFR 84 03/09/2018 Result Comment: The [...] should be multiplied by the estimated BMI. [facility] ELECTROLYTES CO2 27 24 - 32 03/09/2018 [facility] ELECTROLYTES Calcium Lvl 8.1 8.5 - 10.5 03/09/2018 [facility] ELECTROLYTES Glucose Lvl 96 70 - 99 03/09/2018 [facility] ELECTROLYTES Chloride Lvl 107 95 - 109 03/09/2018 [facility] ELECTROLYTES Potassium Lvl 3.7 3.5 - 5.1 03/09/2018 [facility] ELECTROLYTES BUN 9 7 - 22 03/09/2018 [facility] ELECTROLYTES Sodium Lvl 142 135 - 145 03/09/2018 [facility] ELECTROLYTES Creatinine Lvl 0.59 0.50 - 1.40 03/09/2018 [facility] [place] MPV 8.5 7.4 - 10.4 03/09/2018 [facility] [place] Platelet 150 133 - 450 03/09/2018 [facility] [place] Hgb 9.2 12.0 - 16.0 03/09/2018 [facility] [place] Hct 27.1 36.0 - 48.0 03/09/2018 [facility] [place] MCV 86.6 80.0 - 98.0 03/09/2018 [facility] [place] MCH 29.5 27.0 - 31.0 03/09/2018 [facility] [place] MCHC 34.0 32.0 - 36.0 03/09/2018 [facility] [place] RDW 16.3 11.5 - 14.5 03/09/2018 [facility] [place] WBC 7.9 3.7 - 10.4 03/09/2018 [facility] [place] [facility] RBC 3.12 4.20 - 5.40 03/09/2018 [facility] BLOOD BANK RESULTS RBC product Product available 1 (03/07/18 6:22 AM) 03/07/2018 Result Comment: 03/07/2018 07:20 ADDIENINO
called to [facility] 03/07/2018 07:20 [facility] HEMATOLOGY Monocytes # 1.5 0.0 - 0.8 03/06/2018 [facility] HEMATOLOGY Monocytes 12.1 2.0 - 12.0 03/06/2018 [facility] HEMATOLOGY Lymphocytes # 1.1 1.0 - 5.5 03/06/2018 [facility] HEMATOLOGY Segs-Bands # 10.0 1.5 - 8.1 03/06/2018 [facility] HEMATOLOGY Basophils 0.3 0.0 - 1.0 03/06/2018 [facility] HEMATOLOGY Lymphocytes 8.8 20.0 - 40.0 03/06/2018 [facility] HEMATOLOGY Segs 78.8 45.0 - 75.0 03/06/2018 [facility] BLOOD BANK RESULTS Antibody Scrn Negative (03/05/18 8:37 AM) 03/05/2018 [facility] BLOOD BANK RESULTS ABO/Rh B POS 03/05/2018 [facility] CHEM PANEL Total Protein 6.3 6.4 - 8.4 03/05/2018 [facility] CHEM PANEL Albumin Lvl 3.0 3.5 - 5.0 03/05/2018 [facility] CHEM PANEL Alk Phos 57 39 - 136 03/05/2018 [facility] CHEM PANEL Bili Total 0.3 0.2 - 1.3 03/05/2018 [facility] CHEM PANEL ALT 12 0 - 65 03/05/2018 [facility] CHEM PANEL AST 14 0 - 37 03/05/2018 [facility] CHEM PANEL B/C Ratio 17 6 - 25 03/05/2018 [facility] CHEM PANEL A/G Ratio 0.9 0.7 - 1.6 03/05/2018 [facility] CHEM PANEL Globulin 3.3 2.7 - 4.2 03/05/2018 [facility] CHEM PANEL Magnesium Lvl 2.2 1.8 - 2.4 03/05/2018 [facility] HEMATOLOGY Basophils 0.3 0.0 - 1.0 03/05/2018 [facility] HEMATOLOGY Eosinophils 0.1 0.0 - 4.0 03/05/2018 [facility] HEMATOLOGY Segs-Bands # 8.2 1.5 - 8.1 03/05/2018 [facility] HEMATOLOGY Lymphocytes # 1.0 1.0 - 5.5 03/05/2018 [facility] HEMATOLOGY Monocytes # 0.7 0.0 - 0.8 03/05/2018 [facility] [facility] HEMATOLOGY Segs 82.3 45.0 - 75.0 03/05/2018 [facility] HEMATOLOGY Monocytes 7.3 2.0 - 12.0 03/05/2018 [facility] [place] Lymphocytes 10.0 20.0 - 40.0 03/05/2018 [facility] [place] PT 13.1 12.0 - 14.7 03/05/2018 [facility] HEMATOLOGY INR 0.99 0.85 - 1.17 03/05/2018 [facility] HEMATOLOGY PTT 28.3 22.9 - 35.8 03/05/2018 [facility] HEMATOLOGY Eosinophils # 0.1 0.0 - 0.5 03/05/2018 [facility] [place] Monocytes # 0.7 0.0 - 0.8 03/05/2018 [facility] [place] Segs-Bands # 7.9 1.5 - 8.1 03/05/2018 [facility] [place] Basophils 0.5 0.0 - 1.0 03/05/2018 [facility] [place] Lymphocytes # 1.1 1.0 - 5.5 03/05/2018 [facility] [place] Lymphocytes 11.2 20.0 - 40.0 03/05/2018 [facility] [place] Segs 80.1 45.0 - 75.0 03/05/2018 [facility] [place] Eosinophils 0.7 0.0 - 4.0 03/05/2018 [facility] [place] Monocytes 7.5 2.0 - 12.0 03/05/2018 [facility] Pathology Reports No Data Provided for This [...] canal stenosis or neural foraminal narrowing. SL: [id number] 04/27/2018 [facility] Spine Lumbar Comp w Bend views [...] L3, L4, and L5. SL: [id number] 04/24/2018 [facility] Retroperitoneal Complete US Patient Name: NICK CURRIE. : 1930; Age: 87 years y/o; Female. MR: [id number]. Ordering Physician: Shaun Wilkerson MD. PROCEDURE: RENAL [...] Otherwise, kidneys are unremarkable. SL: [id number] 04/23/2018 [facility] Pelvis AP DX Clinical Indication: - Acute [...] hip. No acute abnormalities are identified. SL: [id number] 04/13/2018 [facility] Chest 1view DX PROCEDURE: Chest, AP on 03/09/2018 at 1947 hours. INDICATION: Shortness of breath. COMPARISON: Chest radiographs dated 03/04/2018 and 08/04/2017. FINDINGS: No pleural effusion or pneumothorax. Linear density has developed in the right lower chest suggesting atelectasis. Lungs are otherwise clear without acute infiltrates. No venous congestion or consolidation. Mediastinum is unremarkable. IMPRESSION: Linear atelectasis within the right lower chest. SL: [id number] 03/09/2018 [facility] Hip 2/3 views uni w pelvis [...] again evident. There is generalized osteopenia. SL: [id number] 03/06/2018 [facility] Femur series DX Study: Pelvis and left [...] again evident. There is generalized osteopenia. SL: [id number] 03/06/2018 [facility] 2/3 views uni w pelvis DX Patient Name: NICK CURRIE : 1930; Age: 87 years y/o Female MR: [id number] * LEFT HIP, intraoperative, History: Comminuted intra-articular [...] comminuted lesser trochanteric fragments. SL: [id number] 03/05/2018 [facility] 2/3 views uni w pelvis DX [...] Intertrochanteric fracture of the left femur. SL: [id number] 03/04/2018 [facility] 1view DX Clinical Indication: Chest pain after fall Comparison: None FINDINGS: The frontal chest radiograph shows normal lung volumes without interstitial or airspace opacities, pleural effusions or pneumothorax. The cardiomediastinal contours are normal for the age of the patient with aortic tortuosity. There are degenerative changes in the spine and shoulders. IMPRESSION: No chest radiographic evidence of acute cardiopulmonary disease. SL: [id number] 03/04/2018 [facility] Femur series DX Patient Name: NICK CURRIE : 1930; Age: 87 years y/o Female MR: [id number] Study: 4 view examination of the left femur dated 03/04/2018. Clinical Indication: Left thigh pain sp fall; Comparison: None Osteopenia. There is a comminuted fracture of the left basicervical and intertrochanteric femoral region which has apex lateral angulation at the fracture site and medial rotation of the left femoral head relative to the left acetabulum. No other fracture or dislocation. SL: [id number] 03/04/2018 [facility] 2 views DX EXAMINATION: Chest, 2 view, [...] Hg) 117 05/14/2018 SN[facility]: [facility] Diastolic (mm Hg) 95 05/14/2018 SN[facility]: [facility] Heart Rate 71 {beats}/min 05/14/2018 SNF: [facility] Systolic (mm Hg) 120 05/13/2018 SN[facility]: [facility] Diastolic (mm Hg) 63 05/13/2018 [facility]: [facility] Heart Rate 66 {beats}/min 05/13/2018 [facility]: [facility] Systolic (mm Hg) 129 05/12/2018 [facility]: [facility] Diastolic (mm Hg) 60 05/12/2018 [facility] Heart Rate 61 {beats}/min 05/12/2018 [facility]: [facility] Systolic (mm Hg) 140 05/12/2018 [facility]: [facility] Diastolic (mm Hg) 98 05/12/2018 [facility]: [facility] Heart Rate 79 {beats}/min 05/12/2018 [facility]: [facility] Systolic (mm Hg) 154 05/11/2018 [facility] Diastolic (mm Hg) 71 05/11/2018 [facility]: [facility] Heart Rate 60 {beats}/min 05/11/2018 [facility]: [facility] Systolic (mm Hg) 131 05/11/2018 [facility]: [facility] Diastolic (mm Hg) 70 05/11/2018 [facility] Heart Rate 67 {beats}/min 05/11/2018 [facility] Systolic (mm Hg) 116 05/10/2018 [facility] Diastolic (mm Hg) 63 05/10/2018 [facility] Heart Rate 60 {beats}/min 05/10/2018 [facility]: [facility] Systolic (mm Hg) 118 05/09/2018 [facility]: [facility] Diastolic (mm Hg) 96 05/09/2018 [facility]: [facility] Heart Rate 62 {beats}/min 05/09/2018 [facility]: [facility] Systolic (mm Hg) 150 05/09/2018 [facility]: [facility] Diastolic (mm Hg) 66 05/09/2018 [facility] Heart Rate 66 {beats}/min 05/09/2018 [facility]: [facility] Systolic (mm Hg) 128 05/08/2018 [facility]: [facility] Diastolic (mm Hg) 62 05/08/2018 [facility]: [facility] Heart Rate 69 {beats}/min 05/08/2018 [facility] Systolic (mm Hg) 144 05/07/2018 [facility] Diastolic (mm Hg) 78 05/07/2018 [facility] Heart Rate 64 {beats}/min 05/07/2018 [facility] Height 62 05/06/2018 [facility]: [facility] Systolic (mm Hg) 124 05/06/2018 [facility] Diastolic (mm Hg) 68 05/06/2018 [facility] Heart Rate 65 {beats}/min 05/06/2018 [facility] Systolic (mm Hg) 117 05/06/2018 [facility] Diastolic (mm Hg) 62 05/06/2018 [facility] Heart Rate 77 {beats}/min 05/06/2018 [facility] Systolic (mm Hg) 131 05/05/2018 [facility] Diastolic (mm Hg) 60 05/05/2018 [facility] Heart Rate 61 {beats}/min 05/05/2018 [facility] Systolic (mm Hg) 134 05/05/2018 [facility] Diastolic (mm Hg) 62 05/05/2018 [facility] Heart Rate 88 {beats}/min 05/05/2018 [facility] Systolic (mm Hg) 129 05/04/2018 [facility] Diastolic (mm Hg) 65 05/04/2018 [facility] Heart Rate 60 {beats}/min 05/04/2018 [facility]: [facility] Systolic (mm Hg) 120 05/04/2018 [facility] Diastolic (mm Hg) 63 05/04/2018 [facility] Heart Rate 67 {beats}/min 05/04/2018 [facility]: [facility] Systolic (mm Hg) 131 05/03/2018 [facility]: [facility] Diastolic (mm Hg) 64 05/03/2018 [facility] Heart Rate 61 {beats}/min 05/03/2018 [facility]: [facility] Systolic (mm Hg) 119 05/03/2018 [facility] Diastolic (mm Hg) 63 05/03/2018 [facility] Heart Rate 72 {beats}/min 05/03/2018 [facility]: [facility] Systolic (mm Hg) 138 05/02/2018 [facility]: [facility] Diastolic (mm Hg) 76 05/02/2018 [facility] Heart Rate 80 {beats}/min 05/02/2018 [facility] Systolic (mm Hg) 140 05/01/2018 [facility] Diastolic (mm Hg) 67 05/01/2018 [facility] Heart Rate 82 {beats}/min 05/01/2018 [facility]: [facility] Systolic (mm Hg) 133 05/01/2018 [facility] Diastolic (mm Hg) 65 05/01/2018 [facility]: [facility] Heart Rate 83 {beats}/min 05/01/2018 [facility]: [facility] Systolic (mm Hg) 136 04/30/2018 [facility]: [facility] Diastolic (mm Hg) 67 04/30/2018 [facility] Heart Rate 78 {beats}/min 04/30/2018 [facility]: [facility] Systolic (mm Hg) 147 04/30/2018 [facility]: [facility] Diastolic (mm Hg) 60 04/30/2018 [facility]: [facility] Heart Rate 73 {beats}/min 04/30/2018 [facility]: [facility] Systolic (mm Hg) 149 04/29/2018 [facility] Diastolic (mm Hg) 70 04/29/2018 [facility] Heart Rate 66 {beats}/min 04/29/2018 [facility] Systolic (mm Hg) 117 04/29/2018 [facility] Diastolic (mm Hg) 64 04/29/2018 [facility] Heart Rate 71 {beats}/min 04/29/2018 [facility] Systolic (mm Hg) 118 04/29/2018 [facility] Diastolic (mm Hg) 70 04/29/2018 [facility] Heart Rate 62 {beats}/min 04/29/2018 [facility] Weight 122 04/28/2018 [facility] Systolic (mm Hg) 127 04/28/2018 [facility] Diastolic (mm Hg) 63 04/28/2018 [facility] Heart Rate 78 {beats}/min 04/28/2018 [facility] Systolic (mm Hg) 148 04/28/2018 [facility] Diastolic (mm Hg) 68 04/28/2018 [facility] Temperature Oral (F) 97.8 F 04/28/2018 [facility] Heart Rate 70 {beats}/min 04/28/2018 [facility] Heart Rate 85 04/28/2018 [facility] [...] 04/27/2018 [facility] Systolic (mm Hg) 129 04/27/2018 [facility] Diastolic (mm Hg) 76 04/27/2018 [facility] Respitory Rate 18 04/27/2018 [facility] BMI Calculated 24.01 04/23/2018 [facility] Weight 59.545 04/23/2018 [facility] Height 157.48 cm 04/23/2018 [facility] Height 152.4 cm 04/22/2018 [facility] BMI Calculated 24.46 04/22/2018 [facility] Weight 56.818 04/22/2018 [facility] Respitory Rate 18 04/13/2018 [facility] Heart Rate 64 04/13/2018 [facility] Systolic (mm Hg) 139 04/13/2018 [facility] Diastolic (mm Hg) 58 04/13/2018 [facility] Temperature Oral (F) 98.4 F 04/13/2018 [facility] Systolic (mm Hg) 153 04/13/2018 [facility] Diastolic (mm Hg) 63 04/13/2018 [facility] Systolic (mm Hg) 166 04/13/2018 [facility] Diastolic (mm Hg) 52 04/13/2018 [facility] Heart Rate 62 04/13/2018 [facility] Temperature Oral (F) 98.1 F 04/13/2018 [facility] Respitory Rate 16 04/13/2018 [facility] Systolic (mm Hg) 132 03/31/2018 [facility]: [facility] Diastolic (mm Hg) 69 03/31/2018 [facility]: [facility] Heart Rate 73 {beats}/min 03/31/2018 [facility] Systolic (mm Hg) 131 03/30/2018 [facility] Diastolic (mm Hg) 66 03/30/2018 [facility] Heart Rate 68 {beats}/min 03/30/2018 [facility] Systolic (mm Hg) 119 03/30/2018 [facility] Diastolic (mm Hg) 57 03/30/2018 [facility] Heart Rate 69 {beats}/min 03/30/2018 [facility] Systolic (mm Hg) 128 03/29/2018 [facility] Diastolic (mm Hg) 67 03/29/2018 [facility] Heart Rate 72 {beats}/min 03/29/2018 [facility] Systolic (mm Hg) 131 03/29/2018 [facility] Diastolic (mm Hg) 64 03/29/2018 [facility] Heart Rate 66 {beats}/min 03/29/2018 [facility] Systolic (mm Hg) 121 03/28/2018 [facility] Diastolic (mm Hg) 60 03/28/2018 [facility] Heart Rate 67 {beats}/min 03/28/2018 [facility] Systolic (mm Hg) 112 03/28/2018 [facility] Diastolic (mm Hg) 60 03/28/2018 [facility] Heart Rate 74 {beats}/min 03/28/2018 [facility] Systolic (mm Hg) 135 03/26/2018 [facility] Diastolic (mm Hg) 64 03/26/2018 [facility] Heart Rate 70 {beats}/min 03/26/2018 [facility] Systolic (mm Hg) 110 03/26/2018 [facility] Diastolic (mm Hg) 58 03/26/2018 [facility] Heart Rate 71 {beats}/min 03/26/2018 [facility]: [facility] Systolic (mm Hg) 112 03/25/2018 [facility]: [facility] Diastolic (mm Hg) 60 03/25/2018 [facility] Heart Rate 75 {beats}/min 03/25/2018 [facility] Systolic (mm Hg) 126 03/25/2018 [facility] Diastolic (mm Hg) 81 03/25/2018 [facility] Heart Rate 76 {beats}/min 03/25/2018 [facility] Systolic (mm Hg) 125 03/24/2018 [facility] Diastolic (mm Hg) 60 03/24/2018 [facility]: [facility] Heart Rate 72 {beats}/min 03/24/2018 [facility]: [facility] Systolic (mm Hg) 136 03/24/2018 [facility] Diastolic (mm Hg) 61 03/24/2018 [facility] Heart Rate 83 {beats}/min 03/24/2018 [facility] Systolic (mm Hg) 115 03/23/2018 [facility]: [facility] Diastolic (mm Hg) 64 03/23/2018 [facility]: [facility] Heart Rate 76 {beats}/min 03/23/2018 [facility] Systolic (mm Hg) 113 03/23/2018 [facility] Diastolic (mm Hg) 57 03/23/2018 [facility] Heart Rate 74 {beats}/min 03/23/2018 [facility]: [facility] Systolic (mm Hg) 110 03/22/2018 [facility]: [facility] Diastolic (mm Hg) 60 03/22/2018 [facility]: [facility] Heart Rate 73 {beats}/min 03/22/2018 [facility]: [facility] Systolic (mm Hg) 124 03/22/2018 [facility]: [facility] Diastolic (mm Hg) 60 03/22/2018 [facility]: [facility] Heart Rate 81 {beats}/min 03/22/2018 [facility] Systolic (mm Hg) 126 03/21/2018 [facility]: [facility] Diastolic (mm Hg) 66 03/21/2018 [facility]: [facility] Heart Rate 78 {beats}/min 03/21/2018 [facility]: [facility] Systolic (mm Hg) 120 03/19/2018 [facility]: [facility] Diastolic (mm Hg) 60 03/19/2018 [facility] Heart Rate 70 {beats}/min 03/19/2018 [facility]: [facility] Systolic (mm Hg) 129 03/19/2018 [facility]: [facility] Diastolic (mm Hg) 66 03/19/2018 [facility]: [facility] Heart Rate 73 {beats}/min 03/19/2018 [facility]: [facility] Systolic (mm Hg) 133 03/18/2018 [facility]: [facility] Diastolic (mm Hg) 75 03/18/2018 [facility]: [facility] Heart Rate 76 {beats}/min 03/18/2018 [facility]: [facility] Systolic (mm Hg) 112 03/18/2018 [facility]: [facility] Diastolic (mm Hg) 67 03/18/2018 [facility]: [facility] Heart Rate 78 {beats}/min 03/18/2018 [facility]: [facility] Systolic (mm Hg) 125 03/17/2018 [facility]: [facility] Diastolic (mm Hg) 68 03/17/2018 [facility] Heart Rate 82 {beats}/min 03/17/2018 [facility]: [facility] Systolic (mm Hg) 116 03/17/2018 [facility]: [facility] Diastolic (mm Hg) 60 03/17/2018 [facility] Heart Rate 96 {beats}/min 03/17/2018 [facility]: [facility] Systolic (mm Hg) 123 03/16/2018 [facility]: [facility] Diastolic (mm Hg) 60 03/16/2018 [facility]: [facility] Heart Rate 80 {beats}/min 03/16/2018 [facility]: [facility] Systolic (mm Hg) 131 03/16/2018 [facility] Diastolic (mm Hg) 61 03/16/2018 [facility]: [facility] Heart Rate 84 {beats}/min 03/16/2018 [facility]: [facility] Weight 128 03/16/2018 [facility]: [facility] Height 62 03/16/2018 [facility]: [facility] Systolic (mm Hg) 125 03/15/2018 [facility]: [facility] Diastolic (mm Hg) 68 03/15/2018 [facility]: [facility] Heart Rate 75 {beats}/min 03/15/2018 [facility]: [facility] Systolic (mm Hg) 114 03/15/2018 [facility]: [facility] Diastolic (mm Hg) 84 03/15/2018 [facility]: [facility] Heart Rate 86 {beats}/min 03/15/2018 [facility]: [facility] Systolic (mm Hg) 133 03/14/2018 [facility]: [facility] Diastolic (mm Hg) 71 03/14/2018 [facility]: [facility] Heart Rate 80 {beats}/min 03/14/2018 [facility]: [facility] Systolic (mm Hg) 129 03/14/2018 [facility]: [facility] Diastolic (mm Hg) 60 03/14/2018 [facility]: [facility] Heart Rate 84 {beats}/min 03/14/2018 [facility]: [facility] Systolic (mm Hg) 130 03/14/2018 [facility]: [facility] Diastolic (mm Hg) 68 03/14/2018 [facility]: [facility] Heart Rate 78 {beats}/min 03/14/2018 [facility]: [facility] Systolic (mm Hg) 146 03/13/2018 [facility]: [facility] Diastolic (mm Hg) 58 03/13/2018 [facility]: [facility] Heart Rate 81 {beats}/min 03/13/2018 [facility]: [facility] Systolic (mm Hg) 131 03/12/2018 [facility]: [facility] Diastolic (mm Hg) 72 03/12/2018 [facility]: [facility] Heart Rate 68 {beats}/min 03/12/2018 [facility]: [facility] Systolic (mm Hg) 135 03/12/2018 [facility]: [facility] Diastolic (mm Hg) 66 03/12/2018 [facility]: [facility] Heart Rate 75 {beats}/min 03/12/2018 [facility]: [facility] Systolic (mm Hg) 132 03/12/2018 [facility]: [facility] Diastolic (mm Hg) 78 03/12/2018 [facility]: [facility] Temperature Oral (F) 97.6 F 03/12/2018 SNF: [facility] Respitory Rate 18 03/12/2018 [facility]: [facility] Heart Rate 76 {beats}/min 03/12/2018 [facility]: [facility] Systolic (mm Hg) 128 03/11/2018 [facility]: [facility] Diastolic (mm Hg) 60 03/11/2018 [facility]: [facility] Heart Rate 84 {beats}/min 03/11/2018 [facility]: [facility] Heart Rate 78 03/11/2018 [facility] Respitory Rate 16 03/11/2018 [facility] Systolic (mm Hg) 109 03/11/2018 [facility] Diastolic (mm Hg) 64 03/11/2018 [facility] Temperature Oral (F) 98.4 F 03/11/2018 [facility] Systolic (mm Hg) 113 03/11/2018 [facility] Diastolic (mm Hg) 64 03/11/2018 [facility] Respitory Rate 16 03/11/2018 [facility] Heart Rate 74 03/11/2018 [facility] Temperature Oral (F) 97.9 F 03/11/2018 [facility] Systolic (mm Hg) 109 03/11/2018 [facility] Diastolic (mm Hg) 65 03/11/2018 [facility] Respitory Rate 16 03/11/2018 [facility] Heart Rate 76 03/11/2018 [facility] Temperature Oral (F) 98.0 F 03/11/2018 [facility] Height 62 03/09/2018 SNF: [facility] Weight 128 03/09/2018 SNF: [facility] Weight 60.909 03/05/2018 [facility] BMI Calculated 24.56 03/05/2018 [facility] Height 157.48 cm 03/05/2018 [facility] Encounters Location Location Details Encounter Type Encounter Number Reason For Visit Attending Provider ADM Date DC Date Status Source [facility] [id number] Afshin Marie 11/28/2015 11/29/2015 [facility] [id number] Afshin Marie 04/21/2016 04/22/2016 [facility] [place] [facility] [place] [id number] Afshin Marie 08/04/2017 08/05/2017 [facility] Inpatient [id number] Yoni Ann 03/05/2018 03/11/2018 [facility] Emergency [id number] John Sheldonwuma 04/13/2018 04/13/2018 [facility] Inpatient [id number] Shaun Moyaarya 04/22/2018 04/28/2018 [facility] Procedures Procedure Code Date Perfomer Comments Source ORIF - Open reduction and internal fixation of fracture [id number] 03/05/2018 [facility] Assessment and Plan Assessment and Plan Date Source Extracted from:Title: Clinical Document Author: Augustina Calero NP Date: 04/27/18 [facility] PATIENT NAME: NICK CURRIE ATTENDING PHYSICIAN: ROYCE FATIMA CONSULTING PHYSICIAN: Augustina Gorman [facility] DATE OF CONSULT: 04/27/2018 REASON FOR CONSULT: [...] CT lumbar 3. F/u in clinic at [phone] in 1-2 weeks. Augustina Calero [facility] 04/28/2018 [place] Extracted from:Title: Discharge Summary * [...] risk reduction. Continue rehabilitation therapies. Continue Lovenox. -[place] out POD 14 2. Acute postoperative left [...] We are recommending a referral to the long term center with 1 to 2 hours of therapy per day and 24-hour nursing care. Case mgmt has contacted family. -Plan for SNF today. 03/11/2018 [facility] Plan of Care No Data Provided for This Section Social History Social History Date Source Smoking StatusStart DateEnd Date Unknown if ever smoked 05/14/2018 16:38:13 05/09/2018 SNF: [facility] Social History TypeResponse Alcohol Never Smoking Status Never smoker; Exposure to Tobacco Smoke None; Cigarette Smoking Last 365 Days No; Reg Smoking Cessation Counseling No entered on: 04/23/18 04/23/2018 [facility] No data available for this section 08/05/2017 RADHA Santiago Family History No Data Provided for This Section Advance Directives Order Name Results Value Date Source Advance Directives Advance Directives Cardiopulmonary Resuscitation 05/14/2018 SNF: [facility] Advance Directives Advance Directives Cardiopulmonary Resuscitation 03/31/2018 SNF: [facility] Functional Status No Data Provided for This Section
[2019-05-28 03:12] LABS: FREE THYROXINE INDEX 2.8225 (1.4-3.8); THYROID STIMULATING HORMONE 2.571 uIU/mL (0.350-4.940)
[2019-05-28 03:18] LABS: INR 0.87; PARTIAL THROMBOPLASTIN TIME 30.3 seconds (23.8-35.5); PROTHROMBIN TIME 12.3 seconds (11.9-14.5)
[2019-05-28] MEDS ORDERED: PNEUMOCOCCAL VACCINE POLYVALENT 23 MCG/0.5 ML VIAL IM SCH (04:11)
[2019-05-28] MEDS: ACETAMINOPHEN 325 MG TAB PO PRN (05:02)
[2019-05-28 08:36] LABS: CREATINE KINASE MB 5.5 ng/mL (0-5.0)
[2019-05-28] MEDS ORDERED: ENOXAPARIN SODIUM INJ 100 MG/ML SYR SC SCH (09:00)
[2019-05-28] MEDS: FAMOTIDINE 20 MG/2 ML VIAL IV SCH ×2 (09:10→21:09)
[2019-05-28] MEDS ORDERED: AMIODARONE HCL 200 MG TAB PO SCH (14:00)
--- NOTE | 2019-05-28 14:02 | Consultation ---
DATE OF CONSULTATION: 05/28/2019 Cardiology Consultation Thank you so much for asking me to see this nice lady again in consultation. Ms. Rodrigez is a very complex and very elderly 89-year-old woman, brought to the emergency room by family when she complained of chest discomfort. HISTORY OF PRESENT ILLNESS: The patient is a very poor historian, possibly unreliable, but reports she has not seen any doctor since she was in [facility] in November. She is unfamiliar with her medications and family is not available at this time. Past medical history is significant for hospitalization for chest discomfort on December 01, 2018 at [facility], at which time the patient had a Lexiscan Myoview that showed normal perfusion and EF 91%. PAST SURGERY HISTORY: Significant for multiple hospitalizations including appendectomy, cholecystectomy, foot surgery, previous stroke, and arthritis. She was hospitalized in September 2017 for gastroenteritis. She was hospitalized at [facility] in February 2018 for left hip fracture repair. HOME MEDICATIONS: Include aspirin 81 mg daily, metoprolol tartrate 12.5 twice a day, and omeprazole 40 mg daily. PERSONAL AND SOCIAL HISTORY: She does not smoke or drink. She reports she lives with her daughter and cleans up the kitchen everyday. She walks with a walker. PHYSICAL EXAMINATION: GENERAL: At this time shows a very elderly woman, who is alert, conversant, comfortable. VITAL SIGNS: Blood pressure is 99, systolic. HEAD, EYES, EARS, NOSE, AND THROAT: Relatively unremarkable. NECK: No jugular venous distention. HEART: Sounds S1, S2 are equal, but irregularly irregular. No distinct murmur. LUNGS: Clear. ABDOMEN: Protuberant. Normal bowel sounds. EXTREMITIES: No cyanosis, clubbing, or edema. RADIOGRAPHIC DATA: There is no EKG on the chart, but telemetry strips show atrial fibrillation. PERTINENT LABORATORY STUDIES: Show initial troponin normal, but repeat troponin 0.728 with normal being less than or equal to 0.3. BUN and creatinine are normal. Potassium 3.5. Chest x-ray previously have shown a pulmonary nodule, is not seen on this study. ASSESSMENT: 1. Chest pain could be cardiac in origin with abnormal troponin, but previous normal [facility] in November 2018. 2. Atrial fibrillation may be new or recurrent. She appear not to had it in November. 3. Advanced age. PLAN: We will change her IV amiodarone to oral and repeat troponin. Check EKGs and consider further management based on her progress. Thank you for asking me to see her in consultation. MD CHRISTOPHER No/ELISHA /[id number]
--- NOTE | 2019-05-28 16:36 | NUR ---
Pt converted to normal sinus rhythm at 1625.
[2019-05-28] MEDS: TEMAZEPAM 15 MG CAP PO PRN (21:09)
[2019-05-28] MEDS: ENOXAPARIN SOD INJ 40 MG/0.4 ML SYR SC SCH (21:09)
[2019-05-29] VITALS (16 sets, daily range): BP systolic 117–152; BP diastolic 38–66
[2019-05-29 04:53] LABS: BASOPHILS % 0.3 % (0.0-1.0); EOSINOPHILS # (AUTO) 0.1 (0.0-0.4); EOSINOPHILS % 1.4 % (0.0-6.0); HEMATOCRIT 34.8 % (34.2-44.1); HEMOGLOBIN 11.4 g/dL (12.0-16.0); LYMPHOCYTES # (AUTO) 1.8 (1.0-3.2); MEAN CORPUSCULAR HEMOGLOBIN 31.7 pg (28-32); MEAN CORPUSCULAR HGB CONC 32.8 g/dL (31-35); MEAN CORPUSCULAR VOLUME 96.7 fL (81-99); MONOCYTES # (AUTO) 0.5 (0.2-0.8); MONOCYTES % 7.8 % (4.4-11.3); NEUTROPHILS # (AUTO) 4.5 (2.1-6.9); NEUTROPHILS % 64.4 % (38.7-80.0); PLATELET COUNT 191 x10e3/uL (140-360)
[2019-05-29 05:23] LABS: ALANINE AMINOTRANSFERASE 6 IU/L (0-55); ALBUMIN 2.8 g/dL (3.5-5.0); ALKALINE PHOSPHATASE 56 IU/L (40-150); ANION GAP 9.2 mmol/L (8-16); BLOOD UREA NITROGEN 9 mg/dL (7-26); BUN/CREATININE RATIO 12 (6-25); CALCIUM 8.5 mg/dL (8.4-10.2); CARBON DIOXIDE 25 mmol/L (22-29); CHLORIDE 113 mmol/L (98-107); CHOL/HDL RATIO 2.7 (3.0-3.6); CHOLESTEROL 156 MD/DL (0-199); CREATININE, SERUM 0.73 mg/dL (0.57-1.11); EST GLOMERULAR FILTRATION RATE > 60 ML/MIN (60-); GLUCOSE 93 mg/dL (74-118); HDL CHOLESTEROL 58 MG/DL (40-60); LDL CHOLESTEROL 84 MG/DL (60-130); POTASSIUM 4.2 mmol/L (3.5-5.1); SODIUM 143 mmol/L (136-145); TRIGLYCERIDES 71 MG/DL (0-149)
[2019-05-29 05:47] LABS: MAGNESIUM 2.1 MG/DL (1.3-2.1); PHOSPHORUS 2.7 MG/DL (2.3-4.7)
[2019-05-29] MEDS: SODIUM CHLORIDE 0.9% 1000ML 1,000 ML IV SCH (08:00)
[2019-05-29] MEDS: ENOXAPARIN SOD INJ 40 MG/0.4 ML SYR SC SCH ×2 (09:24→20:14)
[2019-05-29] MEDS: FAMOTIDINE 20 MG/2 ML VIAL IV SCH ×2 (09:24→20:14)
[2019-05-29] MEDS ORDERED: LACTULOSE SYRUP 20 GM/30 ML UDC PO PRN (12:00)
[2019-05-29] MEDS ORDERED: POLYETHYLENE GLYCOL 3350 17 GM PACK PO PRN (12:00)
[2019-05-29] MEDS ORDERED: POLYETHYLENE GLYCOL 3350 17 GM PACK PO ONE (12:00)
[2019-05-29] MEDS: AMIODARONE HCL 200 MG TAB PO SCH (15:15)
[2019-05-29] MEDS: DOCUSATE SODIUM 100 MG CAP PO SCH (17:05)
--- NOTE | 2019-05-29 18:00 | NUR ---
Patient arrived to the unit via bed. Patient was assisted to the restroom using walker and standby assistance. Patient tolerated well. Patient had bowel movement and requested diaper to prevent accident. Allevyn dressing to sacrum is CDI. Stage 1 noted, replaced allevyn dressing. Alternating air pump attached to bed and SCD's turned on as well. Call holloway is within reach. Bed is low and locked. Patient states no pain and all needs met.
--- NOTE | 2019-05-29 19:00 | NUR ---
received report from day nurse. patient is resting comfortably in bed. bed is in lowest position and call holloway is within reach. will continue to monitor patient.
--- NOTE | 2019-05-29 19:18 | NUR ---
Report given to brim rounder nurse. Patient is no distress. Walking rounds performed. Call light within reach.
[2019-05-29] MEDS: TEMAZEPAM 15 MG CAP PO PRN (20:14)
[2019-05-30 01:12] VITALS: BP 157/61
[2019-05-30 05:34] VITALS: BP 152/70
[2019-05-30 06:20] LABS: BASOPHILS % 0.4 % (0.0-1.0); EOSINOPHILS # (AUTO) 0.1 (0.0-0.4); EOSINOPHILS % 1.8 % (0.0-6.0); HEMATOCRIT 37.8 % (34.2-44.1); HEMOGLOBIN 12.8 g/dL (12.0-16.0); LYMPHOCYTES # (AUTO) 1.7 (1.0-3.2); LYMPHOCYTES % 23.7 % (18.0-39.1); MEAN CORPUSCULAR HEMOGLOBIN 31.9 pg (28-32); MEAN CORPUSCULAR HGB CONC 33.9 g/dL (31-35); MEAN CORPUSCULAR VOLUME 94.3 fL (81-99); MONOCYTES # (AUTO) 0.6 (0.2-0.8); NEUTROPHILS # (AUTO) 4.6 (2.1-6.9); NEUTROPHILS % 64.7 % (38.7-80.0); PLATELET COUNT 221 x10e3/uL (140-360); RED BLOOD COUNT 4.01 x10e6/uL (3.6-5.1); RED CELL DISTRIBUTION WIDTH 12.4 % (11.7-14.4)
[2019-05-30 06:35] LABS: ANION GAP 10.9 mmol/L (8-16); BLOOD UREA NITROGEN 8 mg/dL (7-26); BUN/CREATININE RATIO 11 (6-25); CALCIUM 9.2 mg/dL (8.4-10.2); CARBON DIOXIDE 26 mmol/L (22-29); CHLORIDE 109 mmol/L (98-107); CREATININE, SERUM 0.71 mg/dL (0.57-1.11); EST GLOMERULAR FILTRATION RATE > 60 ML/MIN (60-); GLUCOSE 89 mg/dL (74-118); POTASSIUM 3.9 mmol/L (3.5-5.1); SODIUM 142 mmol/L (136-145)
[2019-05-30 07:50] VITALS: BP 154/61
[2019-05-30 08:30] VITALS: BP 154/61
[2019-05-30] MEDS: AMIODARONE HCL 200 MG TAB PO SCH (08:30)
[2019-05-30] MEDS: DOCUSATE SODIUM 100 MG CAP PO SCH (08:30)
[2019-05-30] MEDS: FAMOTIDINE 20 MG/2 ML VIAL IV SCH (08:30)
[2019-05-30] MEDS: ENOXAPARIN SOD INJ 40 MG/0.4 ML SYR SC SCH (08:30)
[2019-05-30] MEDS: ACETAMINOPHEN 325 MG TAB PO PRN (10:37)
[2019-05-30 11:41] VITALS: BP 154/68
[2019-05-30 15:51] VITALS: BP 149/63
[2019-05-30] MEDS ORDERED: AMIODARONE HCL200 MG PO (16:48)
--- NOTE | 2019-05-30 17:11 | NUR ---
discharge orders and prescriptions given. pt verbalized understanding iv dc pressure dressing applied and taped matthew rizo dc, reviewed home medication and follow up visit pt off floor via wheel chair
--- NOTE | 2019-05-30 20:13 | Discharge Summary ---
PRIMARY CARE PHYSICIAN: Arcadio Bobby D.O. ADMISSION DIAGNOSES: 1. Atrial fibrillation with rapid ventricular response. 2. Chest pain with palpitation. 3. Elevated troponin. 4. Gastroesophageal reflux disease. DISCHARGE DIAGNOSES: 1. Atrial fibrillation. 2. Gastroesophageal reflux disease. CONSULTATION: Dr. Galilea Bui, facing baster. HPI/HOSPITAL COURSE: This is an 89-year-old female, who got admitted on 05/28/2019 with complaints of chest pain, weakness, and palpitations. She described as pressure and chest tightness. On arrival to the hospital, her EKG showed heart rate of 120 with atrial fibrillation. She also had elevated troponin. The patient was consulted with Cardiology, Dr. Calero and she got evaluated and placed on amiodarone. On 05/29/2019, the patient converted to normal sinus rhythm. Family refused for heart catheterization. Cardiology cleared for discharge today. PHYSICAL EXAMINATION: VITAL SIGNS: Include temperature 96.4, heart rate 54, blood pressure 154/61, respiratory rate 18, and oxygen saturation 98% at room air. LUNGS: Show bilaterally clear to auscultation. CARDIOVASCULAR: Shows regular rate, bradycardia. ABDOMEN: Soft and nontender. EXTREMITIES: With no edema. NEUROLOGIC: Nonfocal. LABORATORY DATA: Review from 05/30/2019 shows sodium 142, potassium 3.9, chloride 109, CO2 of 26, BUN 8, and creatinine 0.71. WBC 7.08, hemoglobin 12.8, hematocrit 37.8, and platelets 221. DISCHARGE MEDICATIONS: Include: 1. Amiodarone 400 mg one p.o. daily. 2. Aspirin 81 mg p.o. daily. 3. Omeprazole 40 mg p.o. daily. DISPOSITION: Discharged home with family. MD CLAUDETTE Mast/ELISHA /[id number]
[2019-05-30] MEDS ORDERED: FAMOTIDINE 20 MG TAB PO SCH (21:00)
== END 2019-05-30 17:08 | disposition home or self-care (01) | DRG 310 ==
LOC: ER 23:40 → ERHOLD 05-28 02:56 → ICU 05-28 04:20 → MED/SURG 05-29 18:05
PROVIDERS: ADMIT Internal Medicine; ATTEND Internal Medicine
DX: I48.91 Unspecified atrial fibrillation (principal); R74.8 Abnormal levels of other serum enzymes; K21.9 Gastro-esophageal reflux disease without esophagitis; R07.9 Chest pain, unspecified; R00.1 Bradycardia, unspecified; G47.00 Insomnia, unspecified; M19.90 Unspecified osteoarthritis, unspecified site; R26.9 Unspecified abnormalities of gait and mobility; Z79.82 Long term (current) use of aspirin; Z86.73 Personal history of transient ischemic attack (TIA), and cerebral infarction without residual deficits; Z82.49 Family history of ischemic heart disease and other diseases of the circulatory system
CPT/HCPCS: 36415; 36600; 70450; 70551; 71045; 80048; 80053; 80061; 81001; 82550; 82553; 82805; 83735; 83880; 84100; 84436; 84443; 84479; 84484; 85025; 85379; 85610; 85730; 87040; 87086; 93005; 93458; 93880; 93970; 99284; 99285; C1725; C1766; G0378; J0360; J1200; J1327; J1650; J2001; J2250; J3010; J7030; Q9967

== ENCOUNTER 2019-06-03 21:26 | Emergency (ER) | payer MEDICARE ==
[~2019-06-03] VITALS: Ht 157.5 cm; Wt 56.7 kg
[~2019-06-03 21:26] MED LIST changes: -AMIODARONE 900MG 500 ML IV SCH; +AMIODARONE HCL200 MG PO
--- OUTSIDE RECORDS SUMMARY | 2019-06-03 21:30 | XMS REPORT | Continuity of Care Document ---
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 Name Role Phone [facility] [employer] Unavailable Unavailable Problems Problem Status Onset Date Classification Date Reported Comments Source M62.81 MUSCLE WEAKNESS 04/28/2018 Diagnosis 05/14/2018 [place] [facility] [place] [facility] [place] [facility] Walking disability 04/27/2018 Diagnosis 05/14/2018 SNF: [facility] [place] [facility] S22.089S UNSPECIFIED FRACTURE OF T11-T12 VERTEBRA, SEQUELA 04/27/2018 Diagnosis 05/14/2018 SNF: [facility] [place] [facility] G89.29 OTHER CHRONIC PAIN 04/27/2018 Diagnosis 05/14/2018 SNF: [facility] [place] [facility] Z91.81 HISTORY OF FALLING 04/27/2018 Diagnosis 05/14/2018 SNF: [facility] [place] [facility] R53.1 WEAKNESS 04/27/2018 Diagnosis 05/14/2018 SNF: [facility] [place] [facility] ACUTE UTI,PHYSICAL DECONDITIONING,WEAKNE Active 04/22/2018 [facility] Acute pain of right hip 04/13/2018 04/16/2018 [facility] BACK PAIN Active 04/13/2018 [facility] S72.92XS UNSPECIFIED FRACTURE OF LEFT FEMUR, SEQUELA 03/11/2018 Diagnosis 05/14/2018 SNF: [facility] [place] [facility] W19.XXXS UNSPECIFIED FALL, SEQUELA 03/11/2018 Diagnosis 05/14/2018 SNF: [facility] [place] [facility] I10 ESSENTIAL HYPERTENSION 03/11/2018 Diagnosis 05/14/2018 SNF: [facility] [place] [facility] 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 03/11/2018 Diagnosis 05/14/2018 SNF: [facility] [place] [facility] 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 03/11/2018 Diagnosis 05/14/2018 SNF: [facility] FX HIP Active 03/04/2018 [facility] INTRTROCHANTERIC FRACTURE OF FEMUR Active 03/04/2018 [facility] R91.8 - OTHER NONSPECIFIC ABNORMAL FIN Active 04/25/2016 RADHA Santiago D64.9 - "ANEMIA, UNSPECIFIED" Active 04/21/2016 RADHA Santiago DISPLACED INTERTROCHANTERIC FRACTURE OF Active [facility] URINARY TRACT INFECTION, SITE NOT SPECIF Active [facility] OTHER MALAISE Active [facility] WEAKNESS Active [facility] Medications Medication Details Route Status Patient Instructions Ordering Provider Order Date Source Ibuprofen Tablet 800 MG Give 1 tablet by mouth every 8 hours as needed for Pain Oral Active 04/29/2018 SNF: [facility] Nicolasa [facility] Cipro Tablet 500 MG Give 1 tablet by mouth two times a day for UTI for 10 Days Oral Active 04/28/2018 SNF: [facility] Tylenol with Codeine #3 Tablet 300-30 MG Give 1 tablet by mouth every 8 hours as needed for PAIN Oral Active 04/28/2018 SNF: [facility] Nicolasa [place] [facility] Protonix Tablet Delayed Release 40 MG Give 1 tablet by mouth one time a day for gerd Oral Active 04/28/2018 SNF: [facility] Nicolasa [facility] Metoprolol Tartrate Tablet Give 12.5 mg by mouth two times a day for HTN Hold for SBP less than 110, HR less than 60 Oral Active 04/28/2018 SNF: [facility] Lidocaine Patch 5 % Apply to hip topically one time a day for pain and remove per schedule External Active 04/28/2018 SNF: [facility] - Nicolasa T[facility] Cefdinir Capsule 300 MG Give 1 capsule by mouth two times a day for UTI for 7 Days Oral Inactive 04/28/2018 SNF: [facility] Nicolasa [place] [facility] Cyclobenzaprine HCl Tablet 5 MG Give 1 tablet by mouth every 8 hours as needed for Spasm Oral Active 04/28/2018 SNF: [facility] Nicolasa [place] [facility] cefdinir 300 MG Oral Capsule 300 mg=1 cap, PO, [id number], X 7 day, # 14 cap, 0 Refill(s), Pharmacy: [id number] Active 04/27/2018 [facility] DME Prescription See Instructions, MISC, ONCE, Use TSLO brace when upright., # 1 ea, 0 Refill(s) Active 04/27/2018 [facility] ocular lubricant solution Each Affected Eye, QID, PRN Dry Eyes, 0 Refill(s) Active 04/27/2018 [facility] Artificial Tears 1 drp, Route: Each Affected Eye, QID, Drug form: SOLN, PRN Dry Eyes, Start date: 04/27/18 13:11:00 CDT, Duration: 30 day, Stop date: 05/27/18 13:10:00 CDT Inactive 04/27/2018 [facility] Vantin 200 mg, Route: PO, Drug form: TAB, [id number], Dosing Weight 59.545, kg, Start date: 04/25/18 14:00:00 CDT, Duration: 14 day, Stop date: 05/09/18 2:00:00 CDT, ABX Indication: Urinary Tract Infection Inactive 04/25/2018 [facility] cefdinir 300 mg, 1 cap, Route: PO, Drug form: CAP, [id number], Start date: 04/25/18 14:00:00 CDT, Duration: 14 day, Stop date: 05/09/18 2:00:00 CDTNotes: (Same As: Omnicef) No Longer Active 04/25/2018 [facility] Rocephin 1 gm, Route: IVP, [id number], Dosing Weight 59.545, kg, Start date: 04/23/18 21:00:00 CDT, Duration: 7 day, Stop date: 04/29/18 21:00:00 CDT, ABX Indication: Genital Tract InfectionNotes: (Same As: Rocephin). Use with 100 mL NS and infuse over 30 min MEDICATION WASTE Product Size: 1000 mg Product Wasted: ___ mg No Longer Active 04/24/2018 [facility] Acetaminophen 325 MG / Hydrocodone Bitartrate 5 MG Oral Tablet [[place] 5/325] 1 tab, Route: PO, Drug Form: TAB, Dosing Weight 59.545, kg, Q4H, PRN Pain Score 1-3, Start date: 04/23/18 15:42:00 CDT, Duration: 30 day, Stop date: 05/23/18 15:41:00 CDTNotes: (Same as: [place] 325/5) Do not exceed 4gm/day of acetaminophen. No Longer Active 04/23/2018 [facility] Lovenox 40 mg, 0.4 mL, Route: SUB-Q, Drug form: INJ, [id number], Dosing Weight 59.545, kg, Start date: 04/23/18 9:00:00 CDT, Duration: 30 day, Stop date: 05/22/18 9:00:00 CDTNotes: (Same as: Lovenox) No Longer Active 04/23/2018 [facility] Protonix 40 mg, 1 tab, Route: PO, Drug form: ECTAB, Daily, Dosing Weight 59.545, kg, Start date: 04/23/18 9:00:00 CDT, Duration: 30 day, Stop date: 05/22/18 9:00:00 CDTNotes: Tablet should not be chewed or crushed. (Same as: Protonix) No Longer Active 04/23/2018 [facility] Lopressor 12.5 mg, 0.5 tab, Route: PO, Drug form: TAB, Q12H, Dosing Weight 59.545, kg, Start date: 04/23/18 9:00:00 CDT, Duration: 30 day, Stop date: 05/22/18 21:00:00 CDTNotes: (Same as: Lopressor) No Longer Active 04/23/2018 [facility] Lidocaine 0.05 MG/MG Transdermal Patch 1 patch, Route: TOP, Daily, Drug form: FILM, Start date: 04/23/18 9:00:00 CDT, Duration: 30 day, Stop date: 05/22/18 9:00:00 CDTNotes: Apply only once for up to 12 hours in a 24-hour period (12 hours on and 12 hours off). (Same as: Lidoderm) "Remove old patch before application of new patch" No Longer Active 04/23/2018 [facility] cyclobenzaprine 5 mg, 0.5 tab, Route: PO, Drug form: TAB, TID, Dosing Weight 59.545, kg, PRN Spasm, Start date: 04/23/18 4:27:00 CDT, Duration: 30 day, Stop date: 05/23/18 4:26:00 CDTNotes: (Same As: Flexeril) No Longer Active 04/23/2018 [facility] Acetaminophen 650 mg, 2 tab, Route: PO, Drug form: TAB, Q4H, Dosing Weight 59.545, kg, PRN Pain 1-3/Temp > 100.4 F, Start date: 04/22/18 23:07:00 CDT, Duration: 30 day, Stop date: 05/22/18 23:06:00 CDTNotes: Do not exceed 4 gm/day. (Same as: Tylenol) No Longer Active 04/23/2018 [facility] Ondansetron 4 mg, 2 mL, Route: IVP, Drug form: INJ, Q6H, Dosing Weight 59.545, kg, PRN Nausea & Vomiting, Start date: 04/22/18 23:07:00 CDT, Duration: 30 day, Stop date: 05/22/18 23:06:00 CDTNotes: (Same as: Zofran) MEDICATION WASTE Product Size: 4 mg Product Wasted: ___ mg No Longer Active 04/23/2018 [facility] Ceftriaxone 1 gm, Route: IVPB, ONCE, Dosing Weight 56.818, kg, Priority: STAT, Start date: 04/22/18 20:30:00 CDT, Stop date: 04/22/18 20:30:00 CDT, ABX Indication: Urinary Tract Infection Inactive 04/23/2018 [facility] Acetaminophen 325 MG / Hydrocodone Bitartrate 5 MG Oral Tablet [[place] 5/325] 1 tab, Route: PO, Drug Form: TAB, Dosing Weight 60.909, kg, ONCE, STAT, Start date: 04/13/18 15:48:00 CDT, Stop date: 04/13/18 15:48:00 CDTNotes: (Same as: [place] 325/5) Do not exceed 4gm/day of acetaminophen. Inactive 04/13/2018 [facility] Tylenol 975 mg, 3 tab, [...] date Oral Active 03/28/2018 SNF: [facility] MetroNIDAZOLE Tablet 500 MG Give 500 mg by mouth three times a day for diverticulitis needs stop date Oral Active 03/28/2018 SNF: [facility] Xarelto Tablet 10 MG Give 1 tablet by mouth one time a day related to UNSPECIFIED FRACTURE OF LEFT FEMUR, SEQUELA (S72.92XS) Oral Active 03/13/2018 SNF: [facility] Lidocaine Patch 5 % Apply to hip topically one time a day for pain and remove per schedule External Active 03/12/2018 SNF: [facility] Enoxaparin Sodium Solution 40 MG/0.4ML Inject 0.4 ml subcutaneously one time a day for Prophylactic for 2 Days Subcutaneous Active 03/12/2018 SNF: [facility] Levaquin Tablet 500 MG Give 1 tablet by mouth one time a day for Prophylactic for 7 Days Oral Active 03/12/2018 SNF: [facility] Metoprolol Tartrate Tablet Give 12.5 mg by mouth two times a day for HTN Hold for SBP less than 110, HR less than 60 Oral Active 03/11/2018 SNF: [facility] Cyclobenzaprine HCl Tablet 5 MG Give 1 tablet by mouth every 8 hours as needed for Spasm Oral Active 03/11/2018 SNF: [facility] [place] Tablet 7.5-325 MG Give 1 tablet by mouth every 6 hours as needed for pain Oral Active 03/11/2018 SNF: [facility] Levofloxacin 500 MG Oral Tablet [Levaquin] 500 mg=1 tab, PO, Q24H, X 7 day, # 7 tab, 0 Refill(s) Active 03/11/2018 [facility] cyclobenzaprine 10 mg oral tablet 5 mg=0.5 tab, PO, TID, PRN Spasm, 0 Refill(s) Active 03/11/2018 [facility] metoprolol tartrate 25 mg oral tablet 12.5 mg=0.5 tab, PO, Q12H, 0 Refill(s) Active 03/11/2018 [facility] Potassium Chloride 40 mEq, 2 [...] Patient’s with feeding tube less than [address] [place] (Dobhoff, J-tube etc) and pediatric and patients. With food and full glass of water Inactive 03/11/2018 [facility] metoprolol tartrate 12.5 mg, 0.5 tab, Route: PO, Drug form: TAB, Q12H, Dosing Weight 60.909, kg, Start date: 03/11/18 9:00:00 CDT, Duration: 30 day, Stop date: 04/09/18 21:00:00 CDTNotes: (Same as: Lopressor) Inactive 03/11/2018 [facility] Melatonin 3 mg, 1 tab, Route: PO, Drug form: TAB, Bedtime, Dosing Weight 60.909, kg, PRN Sleep, Start date: 03/10/18 14:42:00 CDT, Duration: 30 day, Stop date: 04/09/18 14:41:00 CDTNotes: (Same as: Melatonin) No Longer Active 03/10/2018 [facility] Tylenol 650 mg, 2 tab, Route: PO, Drug form: TAB, Q6H, Dosing Weight 60.909, kg, PRN Pain Score 4-6, Start date: 03/10/18 14:42:00 CDT, Duration: 30 day, Stop date: 04/09/18 14:41:00 CDTNotes: Do not exceed 4 gm/day. (Same as: Tylenol) No Longer Active 03/10/2018 [facility] Zosyn 3.375 gm, Route: IVPB, [id number], Dosing Weight 60.909, kg, CrCl >=20 ml/min infuse over 4 hours, Start date: 03/09/18 20:00:00 CDT, Duration: 10 day, Stop date: 03/19/18 12:00:00 CDT, ABX Indication: Other (specify in Comments)Notes: (Same as: Zosyn) Dosing based on Piperacillin component MEDICATION WASTE Product Size: 3375 mg Product Wasted: ___ mg No Longer Active 03/10/2018 [facility] Lidocaine 0.05 MG/MG Transdermal Patch 1 patch, TOP, Daily, 0 Refill(s) Active 03/09/2018 [facility] Enoxaparin 40 mg=0.4 mL, SUB-Q, [id number], 0 Refill(s) Active 03/09/2018 [facility] metoprolol extended release 12.5 mg, 0.5 tab, Route: PO, Drug form: ERTAB, Q12H, Start date: 03/08/18 21:00:00 CDT, Duration: 30 day, Stop date: 04/07/18 9:00:00 CDTNotes: (Same as: Toprol XL) Do Not Crush No Longer Active 03/09/2018 [facility] metoprolol 25 mg oral tablet, extended release 25 mg=1 tab, PO, Daily, # 30 tab, 0 Refill(s) No Longer Active 03/08/2018 [facility] Acetaminophen 325 MG / Hydrocodone Bitartrate 7.5 MG Oral Tablet [[place] 7.5/325] 1 tab, Route: PO, Drug Form: TAB, Dosing Weight 60.909, kg, Q6H, PRN Pain Score 4-6, Start date: 03/08/18 12:53:00 CDT, Duration: 30 day, Stop date: 04/07/18 12:52:00 CDTNotes: Same as [place] 325-7.5mg Do not exceed 4gm/day of acetaminophen. No Longer Active 03/08/2018 [facility] Acetaminophen 325 MG / Hydrocodone Bitartrate 5 MG Oral Tablet [[place] 5/325] 1 tab, Route: PO, Drug Form: TAB, Dosing Weight 60.909, kg, Q6H, PRN Pain Score 1-3, Start date: 03/07/18 17:26:00 CDT, Duration: 30 day, Stop date: 04/06/18 17:25:00 CDTNotes: (Same as: [place] 325/5) Do not exceed 4gm/day of acetaminophen. No Longer Active 03/07/2018 [facility] Morphine 6 mg, 3 mL, Route: PO, Drug form: SOLN, Q4H, Dosing Weight 60.909, kg, PRN Pain Score 7-10, Start date: 03/07/18 17:26:00 CDT, Stop date: 04/06/18 17:25:00 CDTNotes: (Same as:MORPhine Sulfate) No Longer Active 03/07/2018 [facility] normal saline 0.9% IV 250 mL 250 mL, Rate: 30 ml/hr, Infuse over: 8.3 hr, Route: IV, Dosing Weight 60.909 kg, Total Volume: 250, Start date: 03/07/18 6:23:00 CDT, Duration: 1 day, Stop date: 03/08/18 6:22:00 CDT, 1.65, m2 No Longer Active 03/07/2018 [facility] remove patch Route: TOP, Bedtime, Drug form: ERFILM, Start date: 03/06/18 21:00:00 CDT, Duration: 30 day, Stop date: 04/04/18 21:00:00 CDTNotes: Remove patch 12 hours after application each day. No Longer Active 03/07/2018 [facility] Tylenol 1,000 mg, 2 tab, Route: PO, Drug form: TAB, TID, Dosing Weight 60.909, kg, Start date: 03/06/18 12:00:00 CDT, Duration: 30 day, Stop date: 04/05/18 6:00:00 CDTNotes: Max acetaminophen 4000 mg/day (4 gm/day). (Same as: Tylenol Extra Strength) No Longer Active 03/06/2018 [facility] pantoprazole 40 mg, 1 tab, Route: PO, Drug form: ECTAB, Daily, Dosing Weight 60.909, kg, Start date: 03/06/18 9:00:00 CDT, Duration: 30 day, Stop date: 04/04/18 9:00:00 CDTNotes: Tablet should not be chewed or cr ushed. (Same as: Protonix) No Longer Active 03/06/2018 [facility] Docusate Sodium 100 MG Oral Capsule 100 mg, 1 cap, Route: PO, Drug form: CAP, BID, Dosing Weight 60.909, kg, Start date: 03/06/18 9:00:00 CDT, Duration: 30 day, Stop date: 04/04/18 17:00:00 CDTNotes: (Same as: Colace) (Do Not Crush) No Longer Active 03/06/2018 [facility] Flexeril 5 mg, 0.5 tab, Route: PO, Drug form: TAB, TID, Dosing Weight 60.909, kg, PRN Spasm, Start date: 03/06/18 9:00:00 CDT, Duration: 30 day, Stop date: 04/05/18 8:59:00 CDTNotes: (Same As: Flexeril) No Longer Active 03/06/2018 [facility] Lidocaine 0.05 MG/MG Transdermal Patch 1 patch, Route: TOP, Daily, Drug form: FILM, Start date: 03/06/18 9:00:00 CDT, Duration: 30 day, Stop date: 04/04/18 9:00:00 CDTNotes: Apply only once for up to 12 hours in a 24-hour period (12 hours on and 12 hours off). (Same as: Lidoderm) "Remove old patch before application of new patch" No Longer Active 03/06/2018 [facility] Enoxaparin 40 mg, 0.4 mL, Route: SUB-Q, Drug form: INJ, [id number], Dosing Weight 60.909, kg, Start date: 03/06/18 9:00:00 CDT, Stop date: 04/03/18 9:00:00 CDTNotes: (Same as: Lovenox) No Longer Active 03/06/2018 [facility] Tylenol 1,000 mg, 2 tab, Route: PO, Drug form: TAB, Daily, Dosing Weight 60.909, kg, PRN Pain Score 4-6, Start date: 03/06/18 8:57:00 CDT, Duration: 30 day, Stop date: 04/05/18 8:56:00 CDTNotes: Max acetaminophen 4000 mg/day (4 gm/day). (Same as: Tylenol Extra Strength) No Longer Active 03/06/2018 [facility] Cefazolin 1 gm, Route: IVP, Q8H, Dosing Weight 60.909, kg, Start date: 03/06/18 1:00:00 CDT, Duration: 1 doses or times, Stop date: 03/06/18 1:00:00 CDT, ABX Indication: Surgical ProphylaxisNotes: (Same As: William Win) MEDICATION WASTE Product Size: 1000 mg Product Wasted: ___ mg Inactive 03/06/2018 [facility] Clindamycin 600 mg, 50 mL, Route: IVPB, Drug form: INJ, [id number], Dosing Weight 60.909, kg, Start date: 03/05/18 21:00:00 CDT, Duration: 1 doses or times, Stop date: 03/05/18 21:00:00 CDT, ABX Indication: Surgical Prophylaxis Inactive 03/06/2018 [facility] Labetalol 10 mg, Route: IVP, Q5Min, Dosing Weight 60.909, kg, PRN Elevated BP, Start date: 03/05/18 18:45:00 CDT, Duration: 5 doses or times, Stop date: Limited # of times Inactive 03/05/2018 [facility] Acetaminophen 1,000 mg, Route: PO, Drug form: TAB, ONCE, Dosing Weight 60.909, kg, PRN Pain Score 1-3, Start date: 03/05/18 18:45:00 CDT Inactive 03/05/2018 [facility] Hydralazine 10 mg, Route: IVP, Q20Min, Dosing Weight 60.909, kg, PRN Elevated BP, Start date: 03/05/18 18:45:00 CDT, Duration: 2 doses or times, Stop date: Limited # of times Inactive 03/05/2018 [facility] esmolol 10 mg, Route: IVP, Q5Min, Dosing Weight 60.909, kg, PRN Other -See Comment, Start date: 03/05/18 18:45:00 CDT, Duration: 5 doses or times, Stop date: Limited # of times Inactive 03/05/2018 [facility] Calcium Chloride 0.0014 MEQ/ML / Potassium Chloride 0.004 MEQ/ML / Sodium Chloride 0.103 MEQ/ML / Sodium Lactate 0.028 MEQ/ML Injectable Solution 1,000 mL, Rate: 125 ml/hr, Infuse over: 8 hr, Route: IV, Dosing Weight 60.909 kg, Total Volume: 1,000, Start date: 03/05/18 18:45:00 CDT, Duration: 30 day, Stop date: 04/04/18 18:44:00 CDT, 1.65, m2 Inactive 03/05/2018 [facility] Diphenhydramine 12.5 mg, Route: IVP, Drug form: INJ, Q6H, Dosing Weight 60.909, kg, PRN Itching, Start date: 03/05/18 18:45:00 CDT, Duration: 30 day, Stop date: 04/04/18 18:44:00 CDT Inactive 03/05/2018 [facility] Albuterol 0.83 MG/ML Inhalant Solution 2.49 mg, Route: NEB, Q20Min, Dosing Weight 60.909, kg, PRN Wheezing, Priority: STAT, Start date: 03/05/18 18:45:00 CDT, Duration: 30 day, Stop date: 04/04/18 18:44:00 CDT Inactive 03/05/2018 [facility] Flumazenil 0.2 mg, Route: IVP, PRN, Dosing Weight 60.909, kg, PRN Benzodiazepine Reversal, Initial dose, Start date: 03/05/18 18:45:00 CDT, Duration: 30 day, Stop date: 04/04/18 18:44:00 CDT Inactive 03/05/2018 [facility] Naloxone 0.4 mg, Route: IVP, Q2MIN, Dosing Weight 60.909, kg, PRN Narcotic Reversal, Start date: 03/05/18 18:45:00 CDT, Duration: 8 doses or times, Stop date: Limited # of times Inactive 03/05/2018 [facility] Hydromorphone 0.5 mg, Route: IVP, Q5Min, Dosing Weight 60.909, kg, PRN Pain Score 7-10, Start date: 03/05/18 18:45:00 CDT, Duration: 4 doses or times, Stop date: Limited # of times Inactive 03/05/2018 [facility] Fentanyl 50 microgram, Route: IVP, Q5Min, Dosing Weight 60.909, kg, PRN Pain Score 7-10, Priority: Routine, Start date: 03/05/18 18:45:00 CDT, Duration: 2 doses or times, Stop date: Limited # of times Inactive 03/05/2018 [facility] Morphine 4 mg, Route: IVP, Q5Min, Dosing Weight 60.909, kg, PRN Pain Score 7-10, Start date: 03/05/18 18:45:00 CDT, Duration: 3 doses or times, Stop date: Limited # of times Inactive 03/05/2018 [facility] Oxycodone 5 mg, Route: PO, Drug form: TAB, Q4H, Dosing Weight 60.909, kg, PRN Pain Score 4-6, Start date: 03/05/18 18:45:00 CDT, Duration: 30 day, Stop date: 04/04/18 18:44:00 CDT Inactive 03/05/2018 [facility] Meperidine 12.5 mg, Route: IVP, Q30Min, Dosing Weight 60.909, kg, PRN Other -See Comment, For shivering, Start date: 03/05/18 18:45:00 CDT, Duration: 2 doses or times, Stop date: Limited # of times Inactive 03/05/2018 [facility] Dexamethasone 4 mg, Route: IVP, ONCE, Dosing Weight 60.909, kg, PRN Nausea & Vomiting, Start date: 03/05/18 18:45:00 CDT Inactive 03/05/2018 [facility] Ondansetron 4 mg, Route: IVP, ONCE, Dosing Weight 60.909, kg, PRN Nausea & Vomiting, Start date: 03/05/18 18:45:00 CDT Inactive 03/05/2018 [facility] Dulcolax Laxative 5 mg, 1 tab, Route: PO, Drug form: ECTAB, Q24H, Dosing Weight 60.909, kg, PRN Constipation, Start date: 03/05/18 18:37:00 CDT, Duration: 30 day, Stop date: 04/04/18 18:36:00 CDTNotes: (Same As: Dulcolax , Correctol) (Do Not Crush) "Do Not Crush" No Longer Active 03/05/2018 [facility] Diphenhydramine 12.5 mg, 0.5 tab, Route: PO, Drug form: TAB, Q6H, Dosing Weight 60.909, kg, PRN Itching, Start date: 03/05/18 18:37:00 CDT, Duration: 30 day, Stop date: 04/04/18 18:36:00 CDT No Longer Active 03/05/2018 [facility] Al hydroxide/Mg hydroxide/simethicone 200 mg-200 mg-20 mg/5 mL oral suspension 30 ml, Route: PO, Drug Form: SUSP, Dosing Weight 60.909, kg, Q4H, PRN Indigestion, Start date: 03/05/18 18:37:00 CDT, Duration: 30 day, Stop date: 04/04/18 18:36:00 CDTNotes: (aluminum hydroxide-magnesium hyd- simethicone 050-249-27gz/5ml 30 ml ud GRISELDA) No Longer Active 03/05/2018 [facility] Lactated Ringers IV 1,000 mL 1,000 mL, Rate: 75 ml/hr, Infuse over: 13.3 hr, Route: IV, Dosing Weight 60.909 kg, Total Volume: 1,000, Start date: 03/05/18 18:37:00 CDT, Duration: 30 day, Stop date: 04/04/18 18:36:00 CDT, 1.65, m2 No Longer Active 03/05/2018 [facility] Acetaminophen 650 mg, 2 tab, Route: PO, Drug form: TAB, Q4H, Dosing Weight 60.909, kg, PRN Pain 1-3/Temp > 100.4 F, Start date: 03/05/18 18:37:00 CDT, Duration: 30 day, Stop date: 04/04/18 18:36:00 CDTNotes: Do not exceed 4 gm/day. (Same as: Tylenol) No Longer Active 03/05/2018 [facility] rocuronium (ANES) Route: IV, Drug form: INJ, ONCE, Stop date: 03/05/18 18:33:00 CDT Inactive 03/05/2018 [facility] fentaNYL (ANES) Route: IV, Drug form: INJ, ONCE, Stop date: 03/05/18 18:33:00 CDT Inactive 03/05/2018 [facility] ondansetron (ANES) Route: IV, Drug form: INJ, ONCE, Stop date: 03/05/18 18:33:00 CDT Inactive 03/05/2018 [facility] metoprolol (ANES) Route: IV, Drug form: INJ, ONCE, Stop date: 03/05/18 18:33:00 CDT Inactive 03/05/2018 [facility] dexamethasone (ANES) Route: IV, Drug form: INJ, ONCE, Stop date: 03/05/18 18:33:00 CDT Inactive 03/05/2018 [facility] glycopyrrolate (ANES) Route: IV, Drug form: INJ, ONCE, Stop date: 03/05/18 18:33:00 CDT Inactive 03/05/2018 [facility] [facility] neostigmine (ANES) Route: IV, Drug form: INJ, ONCE, Stop date: 03/05/18 18:33:00 CDT Inactive 03/05/2018 [facility] esmolol (ANES) Route: IV, Drug form: INJ, ONCE, Stop date: 03/05/18 18:33:00 CDT Inactive 03/05/2018 [facility] Amidate (ANES) Route: IV, Drug form: INJ, ONCE, Stop date: 03/05/18 18:33:00 CDT Inactive 03/05/2018 [facility] norepinephrine (ANES) Route: IV, Drug form: INJ, ONCE, Stop date: 03/05/18 18:03:00 CDT Inactive 03/05/2018 [facility] metoclopramide (ANES) Route: IV, Drug form: INJ, ONCE, Stop date: 03/05/18 18:03:00 CDT Inactive 03/05/2018 [facility] lidocaine (ANES) Route: IV, Drug form: INJ, ONCE, Stop date: 03/05/18 18:03:00 CDT Inactive 03/05/2018 [facility] fentaNYL (ANES) Route: IV, Drug form: INJ, ONCE, Stop date: 03/05/18 17:48:00 CDT Inactive 03/05/2018 [facility] cefOXitin (ANES) Route: IV, Drug form: INJ, ONCE, Stop date: 03/05/18 17:48:00 CDT Inactive 03/05/2018 [facility] propofol (ANES) Route: IV, Drug form: INJ, ONCE, Stop date: 03/05/18 17:48:00 CDT Inactive 03/05/2018 [facility] ceFAZolin (ANES) Route: IV, Drug form: INJ, ONCE, Stop date: 03/05/18 17:38:00 CDT Inactive 03/05/2018 [facility] midazolam (ANES) Route: IV, Drug form: SOLN, ONCE, Stop date: 03/05/18 17:33:00 CDT Inactive 03/05/2018 [facility] metoprolol tartrate 12.5 mg, 0.5 tab, Route: PO, Drug form: TAB, BID, Dosing Weight 60.909, kg, Start date: 03/05/18 17:00:00 CDT, Duration: 30 day, Stop date: 04/04/18 9:00:00 CDTNotes: (Same as: Lopressor) No Longer Active 03/05/2018 [facility] Lactated Ringers Injection IV (ANES) 1000 mL Route: IV, Total Volume: 1,000, Start date: 03/05/18 16:58:00 CDT, Stop date: 03/05/18 17:58:00 CDT Inactive 03/05/2018 [facility] Protonix 40 mg, 1 tab, Route: PO, Drug form: ECTAB, Before Dinner, Dosing Weight 60.909, kg, Start date: 03/05/18 16:30:00 CDT, Duration: 30 day, Stop date: 04/03/18 16:30:00 CDTNotes: Tablet should not be chewed or crushed. (Same as: Protonix) Inactive 03/05/2018 [facility] Hydralazine 10 mg, 0.5 mL, Route: IVP, Drug form: INJ, Q4H, Dosing Weight 60.909, kg, PRN Hypertension, Start date: 03/05/18 10:13:00 CDT, Duration: 30 day, Stop date: 04/04/18 10:12:00 CDTNotes: (Same as: Chichi pena) Push over 5 minutes No Longer Active 03/05/2018 [facility] Melatonin 3 mg, 1 tab, Route: PO, Drug form: TAB, Bedtime, Dosing Weight 60.909, kg, PRN Sleep, Start date: 03/05/18 10:13:00 CDT, Duration: 30 day, Stop date: 04/04/18 10:12:00 CDTNotes: (Same as: Melatonin) No Longer Active 03/05/2018 [facility] Streptococcus pneumoniae serotype 1 capsular antigen diphtheria [id number] protein conjugate vaccine / Streptococcus pneumoniae serotype 14 capsular antigen diphtheria [id number] protein conjugate vaccine / Streptococcus pneumoniae serotype 18C capsular antigen d 0.5 mL, Route: IM, Drug Form: INJ, Daily, Start date: 03/05/18 9:00:00 CDT, Duration: 1 doses or times, Stop date: 03/05/18 9:00:00 CDTNotes: Shake well prior to use (Same as: Prevnar 13) Inactive 03/05/2018 [facility] NURSE please update PT's HEIGHT in [place] when possible NURSE please update PT's HEIGHT in [place] when possible, 1, Drug form: MISC, Route: MISC, Q30Min, 03/05/18 8:00:00 CDT, Duration: 4 doses or times, Stop date: 03/05/18 9:30:00 CDT Inactive 03/05/2018 [facility] Ancef + sterile water 20 mL 2 gm, Route: IV, ONCE, Dosing Weight 60.909, kg, Start date: 03/05/18 7:49:00 CDT, Stop date: 03/05/18 7:49:00 CDT, Surgical Prophylaxis Only; For patients Notes: (Same As: Ancef, Kefzol) MEDICATION WASTE Product Size: 1000 mg Product Wasted: ___ mg Inactive 03/05/2018 [facility] hydromorphone 0.3 mg, 0.3 mL, Route: IV, Drug form: INJ, Q4H, PRN Pain Score 7-10, Start date: 03/05/18 5:00:00 CDT, Duration: 30 day, Stop date: 04/04/18 4:59:00 CDTNotes: Same as: Dilaudid No Longer Active 03/05/2018 [facility] metoprolol tartrate 25 mg, PO, BID, metoprolol 2mg 1/2 tab twice daily per medication bottle, 0 Refill(s) No Longer Active 03/05/2018 [facility] Protonix 40 mg, PO, Daily, # 30 tab, 0 Refill(s) Active 03/05/2018 [facility] Fentanyl 50 microgram, Route: IVP, ONCE, Dosing Weight 66.364, kg, Priority: STAT, Start date: 03/04/18 23:59:00 CDT, Stop date: 03/04/18 23:59:00 CDT No Longer Active 03/05/2018 [facility] Saline Flush 0.9% 10 ml, Route: IVP, Drug Form: INJ, Dosing Weight 66.364, kg, PRN, PRN Line Flush, Start date: 03/04/18 23:58:00 CDT, Duration: 30 day, Stop date: 04/03/18 23:57:00 CDTNotes: (Same as: BD Posiflush) No Longer Active 03/05/2018 [facility] Sodium Chloride 0.9% IV 1,000 mL 1,000 mL, Rate: 75 ml/hr, Infuse over: 13.3 hr, Route: IV, Dosing Weight 66.364 kg, Total Volume: 1,000, Start date: 03/04/18 23:58:00 CDT, Duration: 30 day, Stop date: 04/03/18 23:57:00 CDT No Longer Active 03/05/2018 [facility] Acetaminophen 325 MG / Hydrocodone Bitartrate 5 MG Oral Tablet 2 tab, Route: PO, Drug Form: TAB, Dosing Weight 66.364, kg, Q4H, PRN Pain Score 7-10, Start date: 03/04/18 23:58:00 CDT, Duration: 30 day, Stop date: 04/03/18 23:57:00 CDTNotes: (Same as: [place] 325/5) Do not exceed 4gm/day of acetaminophen. No Longer Active 03/05/2018 [facility] Morphine 2 mg, Route: IVP, Q4H, Dosing Weight 66.364, kg, PRN Pain Score 7-10, Start date: 03/04/18 23:58:00 CDT, Duration: 30 day, Stop date: 04/03/18 23:57:00 CDT No Longer Active 03/05/2018 [facility] Dilaudid 0.5 mg, 0.5 mL, Route: IVP, Drug form: INJ, ONCE, Dosing Weight 66.364, kg, Priority: STAT, Start date: 03/04/18 23:37:00 CDT, Stop date: 03/04/18 23:37:00 CDTNotes: Same as: Dilaudid No Longer Active 03/05/2018 [facility] Fentanyl 50 microgram, Route: IVP, ONCE, Dosing Weight 66.364, kg, Priority: STAT, Start date: 03/04/18 21:49:00 CDT, Stop date: 03/04/18 21:49:00 CDT Inactive 03/05/2018 [facility] Allergies, Adverse Reactions, Alerts Substance Category Reaction Severity Reaction type Status Date Reported Comments Source CODINE Assertion Drug allergy Active 01/10/2003 [facility] Tramadol 03/11/2018 [facility] [place] [facility] Codeine 03/12/2018 [facility] [place] [facility] Penicillin 03/12/2018 [facility] [place] [facility] PCN Assertion Drug allergy Active [facility] traMADol Assertion Drug allergy Active [facility] Immunizations Immunization Date Given Site Status Last Updated Comments Source pneumococcal 13-valent vaccine 03/05/2018 Left deltoid completed [facility] Results Order Name Results Value Reference Range Date Interpretation Comments Source CHEM PANEL A/G Ratio 1.0 0.7 - 1.6 04/26/2018 [facility] CHEM PANEL AGAP 8.9 10.0 - 20.0 04/26/2018 [facility] CHEM PANEL Globulin 3.1 2.7 - 4.2 04/26/2018 [facility] CHEM PANEL B/C Ratio 19 6 - 25 04/26/2018 [facility] CHEM PANEL eGFR 80 04/26/2018 Result [...] should be multiplied by the estimated BMI. [facility] CHEM PANEL Alk Phos 104 39 - 136 04/26/2018 [facility] CHEM PANEL Bili Total 0.3 0.2 - 1.3 04/26/2018 [facility] CHEM PANEL AST 14 0 - 37 04/26/2018 [facility] CHEM PANEL Sodium Lvl 140 135 - 145 04/26/2018 [facility] CHEM PANEL BUN 13 7 - 22 04/26/2018 [facility] CHEM PANEL Creatinine Lvl 0.67 0.50 - 1.40 04/26/2018 [facility] CHEM PANEL Glucose Lvl 80 70 - 99 04/26/2018 [facility] CHEM PANEL Albumin Lvl 3.0 3.5 - 5.0 04/26/2018 [facility] CHEM PANEL ALT 12 0 - 65 04/26/2018 [facility] CHEM PANEL CO2 27 24 - 32 04/26/2018 [facility] CHEM PANEL Calcium Lvl 8.7 8.5 - 10.5 04/26/2018 [facility] CHEM PANEL Potassium Lvl 3.9 3.5 - 5.1 04/26/2018 [facility] CHEM PANEL Chloride Lvl 108 95 - 109 04/26/2018 [facility] CHEM PANEL Total Protein 6.1 6.4 - 8.4 04/26/2018 [facility] HEMATOLOGY MCV 91.1 80.0 - 98.0 04/26/2018 [facility] HEMATOLOGY Hct 38.5 36.0 - 48.0 04/26/2018 [facility] HEMATOLOGY Hgb 12.9 12.0 - 16.0 04/26/2018 [facility] MCHC 33.5 32.0 - 36.0 04/26/2018 [facility] MCH 30.5 27.0 - 31.0 04/26/2018 [facility] MPV 8.4 7.4 - 10.4 04/26/2018 [facility] Platelet 184 133 - 450 04/26/2018 [facility] HEMATOLOGY RDW 16.2 11.5 - 14.5 04/26/2018 [facility] HEMATOLOGY RBC 4.23 4.20 - 5.40 04/26/2018 [facility] HEMATOLOGY WBC 5.2 3.7 - 10.4 04/26/2018 [facility] HEMATOLOGY Segs-Bands # 2.9 1.5 - 8.1 04/26/2018 [facility] HEMATOLOGY Eosinophils # 0.1 0.0 - 0.5 04/26/2018 [facility] HEMATOLOGY Monocytes # 0.6 0.0 - 0.8 04/26/2018 [facility] HEMATOLOGY Lymphocytes # 1.5 1.0 - 5.5 04/26/2018 [facility] HEMATOLOGY Segs 55.8 45.0 - 75.0 04/26/2018 [facility] HEMATOLOGY Basophils 0.6 0.0 - 1.0 04/26/2018 [facility] HEMATOLOGY Eosinophils 2.9 0.0 - 4.0 04/26/2018 [facility] Monocytes 11.5 2.0 - 12.0 04/26/2018 [facility] Lymphocytes 29.2 20.0 - 40.0 04/26/2018 [facility] CHEM PANEL eGFR 74 04/25/2018 Result [...] should be multiplied by the estimated BMI. [facility] CHEM PANEL Bili Total 0.5 0.2 - 1.3 04/25/2018 [facility] CHEM PANEL B/C Ratio 18 6 - 25 04/25/2018 [facility] CHEM PANEL Albumin Lvl 2.8 3.5 - 5.0 04/25/2018 [facility] CHEM PANEL Total Protein 6.2 6.4 - 8.4 04/25/2018 [facility] CHEM PANEL Globulin 3.4 2.7 - 4.2 04/25/2018 [facility] CHEM PANEL ALT 13 0 - 65 04/25/2018 [facility] CHEM PANEL A/G Ratio 0.8 0.7 - 1.6 04/25/2018 [facility] CHEM PANEL Chloride Lvl 110 95 - 109 04/25/2018 [facility] CHEM PANEL CO2 24 24 - 32 04/25/2018 [facility] CHEM PANEL AGAP 11.9 10.0 - 20.0 04/25/2018 [facility] CHEM PANEL Calcium Lvl 8.7 8.5 - 10.5 04/25/2018 [facility] CHEM PANEL Alk Phos 104 39 - 136 04/25/2018 [facility] CHEM PANEL AST 13 0 - 37 04/25/2018 [facility] CHEM PANEL Potassium Lvl 3.9 3.5 - 5.1 04/25/2018 [facility] CHEM PANEL Sodium Lvl 142 135 - 145 04/25/2018 [facility] CHEM PANEL Glucose Lvl 83 70 - 99 04/25/2018 [facility] CHEM PANEL Creatinine Lvl 0.74 0.50 - 1.40 04/25/2018 [facility] CHEM PANEL BUN 13 7 - 22 04/25/2018 [facility] HEMATOLOGY Eosinophils 2.6 0.0 - 4.0 04/25/2018 [facility] HEMATOLOGY Monocytes 11.9 2.0 - 12.0 04/25/2018 [facility] HEMATOLOGY Lymphocytes 24.7 20.0 - 40.0 04/25/2018 [facility] HEMATOLOGY Monocytes # 0.6 0.0 - 0.8 04/25/2018 [facility] HEMATOLOGY Eosinophils # 0.1 0.0 - 0.5 04/25/2018 [facility] HEMATOLOGY Segs-Bands # 3.2 1.5 - 8.1 04/25/2018 [facility] HEMATOLOGY Basophils 0.9 0.0 - 1.0 04/25/2018 [facility] HEMATOLOGY Lymphocytes # 1.3 1.0 - 5.5 04/25/2018 [facility] HEMATOLOGY Segs 59.9 45.0 - 75.0 04/25/2018 [facility] HEMATOLOGY RDW 16.8 11.5 - 14.5 04/25/2018 [facility] HEMATOLOGY Platelet 187 133 - 450 04/25/2018 [facility] HEMATOLOGY MCH 30.8 27.0 - 31.0 04/25/2018 [facility] HEMATOLOGY MCHC 33.5 32.0 - 36.0 04/25/2018 [facility] HEMATOLOGY MPV 8.5 7.4 - 10.4 04/25/2018 [facility] HEMATOLOGY WBC 5.3 3.7 - 10.4 04/25/2018 [facility] HEMATOLOGY Hct 39.0 36.0 - 48.0 04/25/2018 [facility] HEMATOLOGY MCV 91.8 80.0 - 98.0 04/25/2018 [facility] HEMATOLOGY RBC 4.25 4.20 - 5.40 04/25/2018 [facility] HEMATOLOGY Hgb 13.1 12.0 - 16.0 04/25/2018 [facility] CHEM PANEL eGFR 77 04/24/2018 Result [...] should be multiplied by the estimated BMI. [facility] CHEM PANEL Calcium Lvl 8.9 8.5 - 10.5 04/24/2018 [facility] CHEM PANEL Chloride Lvl 110 95 - 109 04/24/2018 [facility] CHEM PANEL Alk Phos 101 39 - 136 04/24/2018 [facility] CHEM PANEL AST 9 0 - 37 04/24/2018 [facility] CHEM PANEL CO2 27 24 - 32 04/24/2018 [facility] CHEM PANEL Albumin Lvl 3.1 3.5 - 5.0 04/24/2018 [facility] CHEM PANEL Total Protein 6.1 6.4 - 8.4 04/24/2018 [facility] CHEM PANEL ALT 7 0 - 65 04/24/2018 [facility] CHEM PANEL Bili Total 0.3 0.2 - 1.3 04/24/2018 [facility] CHEM PANEL Potassium Lvl 4.8 3.5 - 5.1 04/24/2018 [facility] CHEM PANEL Glucose Lvl 77 70 - 99 04/24/2018 [facility] CHEM PANEL BUN 13 7 - 22 04/24/2018 [facility] CHEM PANEL Sodium Lvl 145 135 - 145 04/24/2018 [facility] CHEM PANEL Creatinine Lvl 0.72 0.50 - 1.40 04/24/2018 [facility] CHEM PANEL A/G Ratio 1.0 0.7 - 1.6 04/24/2018 [facility] CHEM PANEL AGAP 12.8 10.0 - 20.0 04/24/2018 [facility] CHEM PANEL Globulin 3.0 2.7 - 4.2 04/24/2018 [facility] CHEM PANEL B/C Ratio 18 6 - 25 04/24/2018 [facility] CHEM PANEL Procalcitonin Lvl <0.05 ng/mL 0.00 - 0.10 04/24/2018 [facility] HEMATOLOGY Hct 38.8 36.0 - 48.0 04/24/2018 [facility] HEMATOLOGY MCHC 32.2 32.0 - 36.0 04/24/2018 [facility] MCH 29.7 27.0 - 31.0 04/24/2018 [facility] HEMATOLOGY MCV 92.2 80.0 - 98.0 04/24/2018 [facility] HEMATOLOGY Hgb 12.5 12.0 - 16.0 04/24/2018 [facility] HEMATOLOGY Platelet 211 133 - 450 04/24/2018 [facility] HEMATOLOGY MPV 8.8 7.4 - 10.4 04/24/2018 [facility] HEMATOLOGY RDW 16.8 11.5 - 14.5 04/24/2018 [facility] HEMATOLOGY WBC 5.5 3.7 - 10.4 04/24/2018 [facility] HEMATOLOGY RBC 4.21 4.20 - 5.40 04/24/2018 [facility] HEMATOLOGY Eosinophils 3.2 0.0 - 4.0 04/24/2018 [facility] HEMATOLOGY Monocytes 11.3 2.0 - 12.0 04/24/2018 [facility] HEMATOLOGY Lymphocytes 27.7 20.0 - 40.0 04/24/2018 [facility] HEMATOLOGY Basophils 0.6 0.0 - 1.0 04/24/2018 [facility] HEMATOLOGY Segs-Bands # 3.2 1.5 - 8.1 04/24/2018 [facility] HEMATOLOGY Eosinophils # 0.2 0.0 - 0.5 04/24/2018 [facility] HEMATOLOGY Monocytes # 0.6 0.0 - 0.8 04/24/2018 [facility] HEMATOLOGY Lymphocytes # 1.5 1.0 - 5.5 04/24/2018 [facility] HEMATOLOGY Segs 57.2 45.0 - 75.0 04/24/2018 [facility] CHEM PANEL Lactic Acid Lvl 1.0 0.5 - 2.2 04/23/2018 [facility] URINE AND STOOL UA Urobilinogen <=1.0 mg/dL 0.1 - 1.0 04/23/2018 [facility] URINE AND STOOL UA Leuk Est Large *ABN* (04/22/18 8:07 PM) Negative 04/23/2018 [facility] URINE AND STOOL UA Sq Epi Occasional /LPF Few /LPF 04/23/2018 [facility] URINE AND STOOL UA WBC 44 0 - 5 04/23/2018 [facility] URINE AND STOOL UA RBC 6 0 - 2 04/23/2018 [facility] URINE AND STOOL UA Bacteria Occasional /HPF None Seen /HPF 04/23/2018 [facility] URINE AND STOOL UA Mucus Few /LPF None Seen /LPF 04/23/2018 [facility] URINE AND STOOL UA Blood Moderate *ABN* (04/22/18 8:07 PM) Negative 04/23/2018 [facility] URINE AND STOOL UA Glucose Negative mg/dL Negative mg/dL 04/23/2018 [facility] URINE AND STOOL UA Ketones Negative mg/dL Negative mg/dL 04/23/2018 [facility] URINE AND STOOL UA Bili Negative *NA* (04/22/18 8:07 PM) Negative 04/23/2018 [facility] URINE AND STOOL UA Nitrite Positive *ABN* (04/22/18 8:07 PM) Negative 04/23/2018 [facility] URINE AND STOOL UA pH 5.0 5.0 - 8.0 04/23/2018 [facility] URINE AND STOOL UA Spec Grav 1.016 <=1.030 04/23/2018 [facility] URINE AND STOOL UA Turbidity Clear (04/22/18 8:07 PM) Clear 04/23/2018 [facility] URINE AND STOOL UA Color Yellow *NA* (04/22/18 8:07 PM) Yellow 04/23/2018 [facility] URINE AND STOOL UA Protein Negative mg/dL Negative mg/dL 04/23/2018 [facility] CARDIAC ENZYMES Troponin-I <0.02 0.00 - 0.40 04/23/2018 [facility] URINE AND STOOL UA Urobilinogen <=1.0 mg/dL 0.1 - 1.0 04/13/2018 [facility] URINE AND STOOL UA Mucus Few /LPF None Seen /LPF 04/13/2018 [facility] URINE AND STOOL UA WBC 4 0 - 5 04/13/2018 [facility] URINE AND STOOL UA Sq Epi Occasional /LPF Few /LPF 04/13/2018 [facility] URINE AND STOOL UA RBC 6 0 - 2 04/13/2018 [facility] URINE AND STOOL UA Bacteria Occasional /HPF None Seen /HPF 04/13/2018 [facility] URINE AND STOOL UA pH 6.0 5.0 - 8.0 04/13/2018 [facility] URINE AND STOOL UA Spec Grav 1.014 <=1.030 04/13/2018 [facility] URINE AND STOOL UA Blood Moderate *ABN* (04/13/18 2:03 PM) Negative 04/13/2018 [facility] URINE AND STOOL UA Nitrite Negative (04/13/18 2:03 PM) Negative 04/13/2018 [facility] URINE AND STOOL UA Leuk Est Small *ABN* (04/13/18 2:03 PM) Negative 04/13/2018 [facility] URINE AND STOOL UA Color Yellow *NA* (04/13/18 2:03 PM) Yellow 04/13/2018 [facility] URINE AND STOOL UA Turbidity Clear (04/13/18 2:03 PM) Clear 04/13/2018 [facility] URINE AND STOOL UA Glucose Negative mg/dL Negative mg/dL 04/13/2018 [facility] URINE AND STOOL UA Protein Negative mg/dL Negative mg/dL 04/13/2018 [facility] URINE AND STOOL UA Bili Negative *NA* (04/13/18 2:03 PM) Negative 04/13/2018 [facility] URINE AND STOOL UA Ketones Negative mg/dL Negative mg/dL 04/13/2018 [facility] ELECTROLYTES AGAP 10.6 10.0 - 20.0 03/11/2018 [facility] ELECTROLYTES eGFR 85 03/11/2018 Result Comment: [...] should be multiplied by the estimated BMI. [facility] ELECTROLYTES BUN 14 7 - 22 03/11/2018 [facility] ELECTROLYTES CO2 26 24 - 32 03/11/2018 [facility] ELECTROLYTES Calcium Lvl 7.9 8.5 - 10.5 03/11/2018 [facility] ELECTROLYTES Potassium Lvl 3.6 3.5 - 5.1 03/11/2018 [facility] ELECTROLYTES Sodium Lvl 144 135 - 145 03/11/2018 [facility] ELECTROLYTES Chloride Lvl 111 95 - 109 03/11/2018 [facility] ELECTROLYTES Creatinine Lvl 0.56 0.50 - 1.40 03/11/2018 [facility] ELECTROLYTES Glucose Lvl 83 70 - 99 03/11/2018 [facility] HEMATOLOGY MPV 7.8 7.4 - 10.4 03/11/2018 [facility] HEMATOLOGY WBC 5.9 3.7 - 10.4 03/11/2018 [facility] HEMATOLOGY Platelet 214 133 - 450 03/11/2018 [facility] RDW 16.1 11.5 - 14.5 03/11/2018 [facility] MCHC 33.0 32.0 - 36.0 03/11/2018 [facility] HEMATOLOGY Hct 26.7 36.0 - 48.0 03/11/2018 [facility] RBC 3.07 4.20 - 5.40 03/11/2018 [facility] MCV 86.9 80.0 - 98.0 03/11/2018 [facility] HEMATOLOGY Hgb 8.8 12.0 - 16.0 03/11/2018 [facility] MCH 28.7 27.0 - 31.0 03/11/2018 [facility] CHEM PANEL eGFR 86 03/10/2018 Result [...] should be multiplied by the estimated BMI. [facility] CHEM PANEL Chloride Lvl 109 95 - 109 03/10/2018 [facility] CHEM PANEL CO2 28 24 - 32 03/10/2018 [facility] CHEM PANEL Calcium Lvl 7.9 8.5 - 10.5 03/10/2018 [facility] CHEM PANEL Sodium Lvl 143 135 - 145 03/10/2018 [facility] CHEM PANEL Creatinine Lvl 0.55 0.50 - 1.40 03/10/2018 [facility] CHEM PANEL Potassium Lvl 3.3 3.5 - 5.1 03/10/2018 [facility] CHEM PANEL BUN 13 7 - 22 03/10/2018 [facility] CHEM PANEL Glucose Lvl 88 70 - 99 03/10/2018 [facility] CHEM PANEL AGAP 9.3 10.0 - 20.0 03/10/2018 [facility] HEMATOLOGY RBC 3.02 4.20 - 5.40 03/10/2018 [facility] HEMATOLOGY Hgb 8.8 12.0 - 16.0 03/10/2018 [facility] HEMATOLOGY WBC 9.2 3.7 - 10.4 03/10/2018 [facility] HEMATOLOGY MPV 7.9 7.4 - 10.4 03/10/2018 [facility] HEMATOLOGY RDW 16.2 11.5 - 14.5 03/10/2018 [facility] HEMATOLOGY Platelet 187 133 - 450 03/10/2018 [facility] HEMATOLOGY Hct 26.0 36.0 - 48.0 03/10/2018 [facility] HEMATOLOGY MCHC 33.7 32.0 - 36.0 03/10/2018 [facility] HEMATOLOGY MCH 29.1 27.0 - 31.0 03/10/2018 [facility] HEMATOLOGY MCV 86.3 80.0 - 98.0 03/10/2018 [facility] ELECTROLYTES AGAP 11.7 10.0 - 20.0 03/09/2018 [facility] ELECTROLYTES eGFR 84 03/09/2018 Result Comment: [...] should be multiplied by the estimated BMI. [facility] ELECTROLYTES CO2 27 24 - 32 03/09/2018 [facility] ELECTROLYTES Calcium Lvl 8.1 8.5 - 10.5 03/09/2018 [facility] ELECTROLYTES Glucose Lvl 96 70 - 99 03/09/2018 [facility] ELECTROLYTES Chloride Lvl 107 95 - 109 03/09/2018 [facility] ELECTROLYTES Potassium Lvl 3.7 3.5 - 5.1 03/09/2018 [facility] ELECTROLYTES BUN 9 7 - 22 03/09/2018 [facility] ELECTROLYTES Sodium Lvl 142 135 - 145 03/09/2018 [facility] ELECTROLYTES Creatinine Lvl 0.59 0.50 - 1.40 03/09/2018 [facility] MPV 8.5 7.4 - 10.4 03/09/2018 [facility] Platelet 150 133 - 450 03/09/2018 [facility] Hgb 9.2 12.0 - 16.0 03/09/2018 [facility] Hct 27.1 36.0 - 48.0 03/09/2018 [facility] MCV 86.6 80.0 - 98.0 03/09/2018 [facility] [facility] MCH 29.5 27.0 - 31.0 03/09/2018 [facility] MCHC 34.0 32.0 - 36.0 03/09/2018 [facility] RDW 16.3 11.5 - 14.5 03/09/2018 [facility] WBC 7.9 3.7 - 10.4 03/09/2018 [facility] RBC 3.12 4.20 - 5.40 03/09/2018 [facility] BLOOD BANK RESULTS RBC product Product available 1 (03/07/18 6:22 AM) 03/07/2018 Result Comment: 03/07/2018 07:20 ADDIENINO
called to shraddha 03/07/2018 07:20 [facility] HEMATOLOGY Monocytes # 1.5 0.0 - 0.8 03/06/2018 [facility] HEMATOLOGY Monocytes 12.1 2.0 - 12.0 03/06/2018 [facility] HEMATOLOGY Lymphocytes # 1.1 1.0 - 5.5 03/06/2018 [facility] HEMATOLOGY Segs-Bands # 10.0 1.5 - 8.1 03/06/2018 [facility] HEMATOLOGY Basophils 0.3 0.0 - 1.0 03/06/2018 [facility] HEMATOLOGY Lymphocytes 8.8 20.0 - 40.0 03/06/2018 [facility] HEMATOLOGY Segs 78.8 45.0 - 75.0 03/06/2018 [facility] BLOOD BANK RESULTS Antibody Scrn Negative (03/05/18 8:37 AM) 03/05/2018 [facility] BLOOD BANK RESULTS ABO/Rh B POS 03/05/2018 [facility] CHEM PANEL Total Protein 6.3 6.4 - 8.4 03/05/2018 [facility] CHEM PANEL Albumin Lvl 3.0 3.5 - 5.0 03/05/2018 [facility] CHEM PANEL Alk Phos 57 39 - 136 03/05/2018 [facility] CHEM PANEL Bili Total 0.3 0.2 - 1.3 03/05/2018 [facility] CHEM PANEL ALT 12 0 - 65 03/05/2018 [facility] CHEM PANEL AST 14 0 - 37 03/05/2018 [facility] CHEM PANEL B/C Ratio 17 6 - 25 03/05/2018 [facility] CHEM PANEL A/G Ratio 0.9 0.7 - 1.6 03/05/2018 [facility] CHEM PANEL Globulin 3.3 2.7 - 4.2 03/05/2018 [facility] CHEM PANEL Magnesium Lvl 2.2 1.8 - 2.4 03/05/2018 [facility] HEMATOLOGY Basophils 0.3 0.0 - 1.0 03/05/2018 [facility] HEMATOLOGY Eosinophils 0.1 0.0 - 4.0 03/05/2018 [facility] HEMATOLOGY Segs-Bands # 8.2 1.5 - 8.1 03/05/2018 [facility] HEMATOLOGY Lymphocytes # 1.0 1.0 - 5.5 03/05/2018 [facility] HEMATOLOGY Monocytes # 0.7 0.0 - 0.8 03/05/2018 [facility] HEMATOLOGY Segs 82.3 45.0 - 75.0 03/05/2018 [facility] HEMATOLOGY Monocytes 7.3 2.0 - 12.0 03/05/2018 [facility] Lymphocytes 10.0 20.0 - 40.0 03/05/2018 [facility] PT 13.1 12.0 - 14.7 03/05/2018 [facility] HEMATOLOGY INR 0.99 0.85 - 1.17 03/05/2018 [facility] HEMATOLOGY PTT 28.3 22.9 - 35.8 03/05/2018 [facility] HEMATOLOGY Eosinophils # 0.1 0.0 - 0.5 03/05/2018 [facility] Monocytes # 0.7 0.0 - 0.8 03/05/2018 [facility] Segs-Bands # 7.9 1.5 - 8.1 03/05/2018 [facility] Basophils 0.5 0.0 - 1.0 03/05/2018 [facility] Lymphocytes # 1.1 1.0 - 5.5 03/05/2018 [facility] Lymphocytes 11.2 20.0 - 40.0 03/05/2018 [facility] Segs 80.1 45.0 - 75.0 03/05/2018 [facility] Eosinophils 0.7 0.0 - 4.0 03/05/2018 [facility] Monocytes 7.5 2.0 - 12.0 03/05/2018 [facility] Pathology Reports No Data Provided for [...] canal stenosis or neural foraminal narrowing. SL: [id number] 04/27/2018 [facility] Spine Lumbar Comp w Bend [...] L3, L4, and L5. SL: [id number] 04/24/2018 [facility] Retroperitoneal Complete US Patient Name: NICK CURRIE. : 1930; Age: 87 years y/o; Female. MR: [id number]. Ordering Physician: Shaun Wilkerson MD. PROCEDURE: RENAL [...] Otherwise, kidneys are unremarkable. SL: [id number] 04/23/2018 [facility] Pelvis AP DX Clinical Indication: - [...] hip. No acute abnormalities are identified. SL: [id number] 04/13/2018 [facility] Chest 1view DX PROCEDURE: Chest, AP [...] atelectasis within the right lower chest. SL: [id number] 03/09/2018 [facility] Hip 2/3 views uni w [...] again evident. There is generalized osteopenia. SL: [id number] 03/06/2018 [facility] Femur series DX Study: Pelvis and [...] again evident. There is generalized osteopenia. SL: [id number] 03/06/2018 [facility] 2/3 views uni w pelvis DX Patient Name: NICK CURRIE : 1930; Age: 87 years y/o Female MR: [id number] * LEFT HIP, intraoperative, History: Comminuted intra-articular [...] comminuted lesser trochanteric fragments. SL: [id number] 03/05/2018 [facility] 2/3 views uni w pelvis DX LEFT [...] Intertrochanteric fracture of the left femur. SL: [id number] 03/04/2018 [facility] 1view DX Clinical Indication: Chest pain after fall Comparison: None FINDINGS: The frontal chest radiograph shows normal lung volumes without interstitial or airspace opacities, pleural effusions or pneumothorax. The cardiomediastinal contours are normal for the age of the patient with aortic tortuosity. There are degenerative changes in the spine and shoulders. IMPRESSION: No chest radiographic evidence of acute cardiopulmonary disease. SL: [id number] 03/04/2018 [facility] Femur series DX Patient Name: NICK CURRIE : 1930; Age: 87 years y/o Female MR: [id number] Study: 4 view examination of the left femur dated 03/04/2018. Clinical Indication: Left thigh pain sp fall; Comparison: None Osteopenia. There is a comminuted fracture of the left basicervical and intertrochanteric femoral region which has apex lateral angulation at the fracture site and medial rotation of the left femoral head relative to the left acetabulum. No other fracture or dislocation. SL: [id number] 03/04/2018 [facility] 2 views DX EXAMINATION: Chest, 2 [...] Hg) 117 05/14/2018 [facility] Diastolic (mm Hg) 95 05/14/2018 [facility] Heart Rate 71 {beats}/min 05/14/2018 [facility] Systolic (mm Hg) 120 05/13/2018 [facility]: [facility] Diastolic (mm Hg) 63 05/13/2018 [facility] Heart Rate 66 {beats}/min 05/13/2018 [facility]: [facility] Systolic (mm Hg) 129 05/12/2018 [facility]: [facility] [place] Diastolic (mm Hg) 60 05/12/2018 [facility]: [facility] Heart Rate 61 {beats}/min 05/12/2018 [facility]: [facility] [place] Systolic (mm Hg) 140 05/12/2018 [facility] [place] Diastolic (mm Hg) 98 05/12/2018 [facility] [place] Heart Rate 79 {beats}/min 05/12/2018 [facility] [place] Systolic (mm Hg) 154 05/11/2018 [facility] [place] Diastolic (mm Hg) 71 05/11/2018 [facility] Heart Rate 60 {beats}/min 05/11/2018 [facility] [place] Systolic (mm Hg) 131 05/11/2018 [facility] Diastolic (mm Hg) 70 05/11/2018 [facility] [place] Heart Rate 67 {beats}/min 05/11/2018 [facility]: [facility] [place] Systolic (mm Hg) 116 05/10/2018 [facility]: [facility] [place] Diastolic (mm Hg) 63 05/10/2018 [facility] [place] Heart Rate 60 {beats}/min 05/10/2018 [facility]: [facility] [place] Systolic (mm Hg) 118 05/09/2018 [facility] Diastolic (mm Hg) 96 05/09/2018 [facility] [place] Heart Rate 62 {beats}/min 05/09/2018 [facility] [place] Systolic (mm Hg) 150 05/09/2018 [facility] [place] Diastolic (mm Hg) 66 05/09/2018 [facility] [place] Heart Rate 66 {beats}/min 05/09/2018 [facility] [place] Systolic (mm Hg) 128 05/08/2018 [facility] [place] Diastolic (mm Hg) 62 05/08/2018 [facility] [place] Heart Rate 69 {beats}/min 05/08/2018 [facility] [place] Systolic (mm Hg) 144 05/07/2018 [facility] [place] Diastolic (mm Hg) 78 05/07/2018 [facility] [place] Heart Rate 64 {beats}/min 05/07/2018 [facility] [place] Height 62 05/06/2018 [facility] [place] Systolic (mm Hg) 124 05/06/2018 [facility] [place] Diastolic (mm Hg) 68 05/06/2018 [facility] [place] Heart Rate 65 {beats}/min 05/06/2018 [facility] [place] Systolic (mm Hg) 117 05/06/2018 [facility] [place] Diastolic (mm Hg) 62 05/06/2018 [facility] [place] Heart Rate 77 {beats}/min 05/06/2018 [facility] [place] Systolic (mm Hg) 131 05/05/2018 [facility] [place] Diastolic (mm Hg) 60 05/05/2018 [facility] [place] Heart Rate 61 {beats}/min 05/05/2018 [facility] [place] Systolic (mm Hg) 134 05/05/2018 [facility] [place] Diastolic (mm Hg) 62 05/05/2018 [facility] [place] Heart Rate 88 {beats}/min 05/05/2018 [facility] [place] Systolic (mm Hg) 129 05/04/2018 [facility] [place] Diastolic (mm Hg) 65 05/04/2018 [facility] [place] Heart Rate 60 {beats}/min 05/04/2018 [facility] [place] Systolic (mm Hg) 120 05/04/2018 [facility] [place] Diastolic (mm Hg) 63 05/04/2018 [facility] [place] Heart Rate 67 {beats}/min 05/04/2018 [facility] [place] Systolic (mm Hg) 131 05/03/2018 [facility] [place] Diastolic (mm Hg) 64 05/03/2018 [facility] [place] Heart Rate 61 {beats}/min 05/03/2018 [facility] [place] Systolic (mm Hg) 119 05/03/2018 [facility] [place] Diastolic (mm Hg) 63 05/03/2018 [facility] [place] Heart Rate 72 {beats}/min 05/03/2018 [facility] [place] Systolic (mm Hg) 138 05/02/2018 [facility] [place] Diastolic (mm Hg) 76 05/02/2018 [facility] [place] Heart Rate 80 {beats}/min 05/02/2018 [facility] [place] Systolic (mm Hg) 140 05/01/2018 [facility] [place] Diastolic (mm Hg) 67 05/01/2018 [facility] [place] Heart Rate 82 {beats}/min 05/01/2018 [facility] [place] Systolic (mm Hg) 133 05/01/2018 [facility] Diastolic (mm Hg) 65 05/01/2018 [facility] [place] Heart Rate 83 {beats}/min 05/01/2018 [facility] [place] Systolic (mm Hg) 136 04/30/2018 [facility] [place] Diastolic (mm Hg) 67 04/30/2018 [facility] [place] Heart Rate 78 {beats}/min 04/30/2018 [facility] [place] Systolic (mm Hg) 147 04/30/2018 [facility] [place] Diastolic (mm Hg) 60 04/30/2018 [facility] [place] Heart Rate 73 {beats}/min 04/30/2018 [facility] [place] Systolic (mm Hg) 149 04/29/2018 [facility] [place] Diastolic (mm Hg) 70 04/29/2018 [facility] [place] Heart Rate 66 {beats}/min 04/29/2018 [facility] [place] Systolic (mm Hg) 117 04/29/2018 [facility] [place] Diastolic (mm Hg) 64 04/29/2018 [facility] [place] Heart Rate 71 {beats}/min 04/29/2018 [facility] [place] Systolic (mm Hg) 118 04/29/2018 [facility] Diastolic (mm Hg) 70 04/29/2018 [facility] [place] Heart Rate 62 {beats}/min 04/29/2018 [facility] [place] Weight 122 04/28/2018 [facility] [place] Systolic (mm Hg) 127 04/28/2018 [facility] Diastolic (mm Hg) 63 04/28/2018 [facility] Heart Rate 78 {beats}/min 04/28/2018 [facility] Systolic (mm Hg) 148 04/28/2018 [facility] Diastolic (mm Hg) 68 04/28/2018 [facility] Temperature Oral (F) 97.8 F 04/28/2018 [facility] Heart Rate 70 {beats}/min 04/28/2018 [facility] Heart Rate 85 04/28/2018 [facility] [...] 04/27/2018 [facility] Systolic (mm Hg) 129 04/27/2018 [facility] Diastolic (mm Hg) 76 04/27/2018 [facility] Respitory Rate 18 04/27/2018 [facility] BMI Calculated 24.01 04/23/2018 [facility] Weight 59.545 04/23/2018 [facility] Height 157.48 cm 04/23/2018 [facility] Height 152.4 cm 04/22/2018 [facility] BMI Calculated 24.46 04/22/2018 [facility] Weight 56.818 04/22/2018 [facility] Respitory Rate 18 04/13/2018 [facility] Heart Rate 64 04/13/2018 [facility] Systolic (mm Hg) 139 04/13/2018 [facility] Diastolic (mm Hg) 58 04/13/2018 [facility] Temperature Oral (F) 98.4 F 04/13/2018 [facility] Systolic (mm Hg) 153 04/13/2018 [facility] Diastolic (mm Hg) 63 04/13/2018 [facility] Systolic (mm Hg) 166 04/13/2018 [facility] Diastolic (mm Hg) 52 04/13/2018 [facility] Heart Rate 62 04/13/2018 [facility] Temperature Oral (F) 98.1 F 04/13/2018 [facility] Respitory Rate 16 04/13/2018 [facility] Systolic (mm Hg) 132 03/31/2018 [facility] Diastolic (mm Hg) 69 03/31/2018 [facility] Heart Rate 73 {beats}/min 03/31/2018 [facility] Systolic (mm Hg) 131 03/30/2018 [facility] Diastolic (mm Hg) 66 03/30/2018 [facility] Heart Rate 68 {beats}/min 03/30/2018 [facility] Systolic (mm Hg) 119 03/30/2018 [facility] Diastolic (mm Hg) 57 03/30/2018 [facility] Heart Rate 69 {beats}/min 03/30/2018 [facility] Systolic (mm Hg) 128 03/29/2018 [facility] Diastolic (mm Hg) 67 03/29/2018 [facility] Heart Rate 72 {beats}/min 03/29/2018 [facility] [place] Systolic (mm Hg) 131 03/29/2018 [facility] Diastolic (mm Hg) 64 03/29/2018 [facility] Heart Rate 66 {beats}/min 03/29/2018 [facility] Systolic (mm Hg) 121 03/28/2018 [facility] Diastolic (mm Hg) 60 03/28/2018 [facility] Heart Rate 67 {beats}/min 03/28/2018 [facility] Systolic (mm Hg) 112 03/28/2018 [facility] Diastolic (mm Hg) 60 03/28/2018 [facility] Heart Rate 74 {beats}/min 03/28/2018 [facility] Systolic (mm Hg) 135 03/26/2018 [facility] Diastolic (mm Hg) 64 03/26/2018 [facility] Heart Rate 70 {beats}/min 03/26/2018 [facility] Systolic (mm Hg) 110 03/26/2018 [facility] Diastolic (mm Hg) 58 03/26/2018 [facility] Heart Rate 71 {beats}/min 03/26/2018 [facility] Systolic (mm Hg) 112 03/25/2018 [facility] Diastolic (mm Hg) 60 03/25/2018 [facility] Heart Rate 75 {beats}/min 03/25/2018 [facility] Systolic (mm Hg) 126 03/25/2018 [facility] Diastolic (mm Hg) 81 03/25/2018 [facility] Heart Rate 76 {beats}/min 03/25/2018 [facility] Systolic (mm Hg) 125 03/24/2018 [facility] Diastolic (mm Hg) 60 03/24/2018 [facility] Heart Rate 72 {beats}/min 03/24/2018 [facility] Systolic (mm Hg) 136 03/24/2018 [facility] Diastolic (mm Hg) 61 03/24/2018 [facility] Heart Rate 83 {beats}/min 03/24/2018 [facility] Systolic (mm Hg) 115 03/23/2018 [facility] Diastolic (mm Hg) 64 03/23/2018 [facility] Heart Rate 76 {beats}/min 03/23/2018 [facility] Systolic (mm Hg) 113 03/23/2018 [facility] Diastolic (mm Hg) 57 03/23/2018 [facility] Heart Rate 74 {beats}/min 03/23/2018 [facility] Systolic (mm Hg) 110 03/22/2018 [facility] Diastolic (mm Hg) 60 03/22/2018 [facility] Heart Rate 73 {beats}/min 03/22/2018 [facility] Systolic (mm Hg) 124 03/22/2018 [facility] Diastolic (mm Hg) 60 03/22/2018 [facility] Heart Rate 81 {beats}/min 03/22/2018 [facility] Systolic (mm Hg) 126 03/21/2018 [facility] Diastolic (mm Hg) 66 03/21/2018 [facility] Heart Rate 78 {beats}/min 03/21/2018 [facility] Systolic (mm Hg) 120 03/19/2018 [facility] Diastolic (mm Hg) 60 03/19/2018 [facility] Heart Rate 70 {beats}/min 03/19/2018 [facility] Systolic (mm Hg) 129 03/19/2018 [facility] Diastolic (mm Hg) 66 03/19/2018 [facility] Heart Rate 73 {beats}/min 03/19/2018 [facility] Systolic (mm Hg) 133 03/18/2018 [facility] Diastolic (mm Hg) 75 03/18/2018 [facility] Heart Rate 76 {beats}/min 03/18/2018 [facility] [place] Systolic (mm Hg) 112 03/18/2018 [facility] Diastolic (mm Hg) 67 03/18/2018 [facility] Heart Rate 78 {beats}/min 03/18/2018 [facility] Systolic (mm Hg) 125 03/17/2018 [facility] Diastolic (mm Hg) 68 03/17/2018 [facility] Heart Rate 82 {beats}/min 03/17/2018 [facility] Systolic (mm Hg) 116 03/17/2018 [facility] Diastolic (mm Hg) 60 03/17/2018 [facility] [place] Heart Rate 96 {beats}/min 03/17/2018 [facility] [place] Systolic (mm Hg) 123 03/16/2018 [facility] Diastolic (mm Hg) 60 03/16/2018 [facility] [place] Heart Rate 80 {beats}/min 03/16/2018 [facility] [place] Systolic (mm Hg) 131 03/16/2018 [facility] [place] Diastolic (mm Hg) 61 03/16/2018 [facility] [place] Heart Rate 84 {beats}/min 03/16/2018 [facility] [place] Weight 128 03/16/2018 [facility] [place] Height 62 03/16/2018 [facility] Systolic (mm Hg) 125 03/15/2018 [facility] Diastolic (mm Hg) 68 03/15/2018 [facility] Heart Rate 75 {beats}/min 03/15/2018 [facility] Systolic (mm Hg) 114 03/15/2018 [facility] Diastolic (mm Hg) 84 03/15/2018 [facility] Heart Rate 86 {beats}/min 03/15/2018 [facility] [place] Systolic (mm Hg) 133 03/14/2018 [facility] Diastolic (mm Hg) 71 03/14/2018 [facility] Heart Rate 80 {beats}/min 03/14/2018 [facility] Systolic (mm Hg) 129 03/14/2018 [facility] Diastolic (mm Hg) 60 03/14/2018 [facility] Heart Rate 84 {beats}/min 03/14/2018 [facility] [place] Systolic (mm Hg) 130 03/14/2018 [facility] [place] Diastolic (mm Hg) 68 03/14/2018 [facility] Heart Rate 78 {beats}/min 03/14/2018 [facility] [place] Systolic (mm Hg) 146 03/13/2018 [facility] [place] Diastolic (mm Hg) 58 03/13/2018 [facility] [place] Heart Rate 81 {beats}/min 03/13/2018 [facility] [place] Systolic (mm Hg) 131 03/12/2018 [facility] [place] Diastolic (mm Hg) 72 03/12/2018 [facility] [place] Heart Rate 68 {beats}/min 03/12/2018 [facility] [place] Systolic (mm Hg) 135 03/12/2018 [facility] [place] Diastolic (mm Hg) 66 03/12/2018 [facility] [place] Heart Rate 75 {beats}/min 03/12/2018 [facility] [place] Systolic (mm Hg) 132 03/12/2018 [facility] [place] Diastolic (mm Hg) 78 03/12/2018 [facility] [place] Temperature Oral (F) 97.6 F 03/12/2018 [facility] Respitory Rate 18 03/12/2018 [facility] Heart Rate 76 {beats}/min 03/12/2018 [facility] Systolic (mm Hg) 128 03/11/2018 [facility] Diastolic (mm Hg) 60 03/11/2018 [facility] Heart Rate 84 {beats}/min 03/11/2018 [facility] Heart Rate 78 03/11/2018 [facility] Respitory Rate 16 03/11/2018 [facility] Systolic (mm Hg) 109 03/11/2018 [facility] Diastolic (mm Hg) 64 03/11/2018 [facility] Temperature Oral (F) 98.4 F 03/11/2018 [facility] Systolic (mm Hg) 113 03/11/2018 [facility] Diastolic (mm Hg) 64 03/11/2018 [facility] Respitory Rate 16 03/11/2018 [facility] Heart Rate 74 03/11/2018 [facility] Temperature Oral (F) 97.9 F 03/11/2018 [facility] Systolic (mm Hg) 109 03/11/2018 [facility] Diastolic (mm Hg) 65 03/11/2018 [facility] Respitory Rate 16 03/11/2018 [facility] Heart Rate 76 03/11/2018 [facility] [facility] Temperature Oral (F) 98.0 F 03/11/2018 [facility] Height 62 03/09/2018 SN[facility]: [facility] [place] Weight 128 03/09/2018 SNF: [facility] [place] Weight 60.909 03/05/2018 [facility] BMI Calculated 24.56 03/05/2018 [facility] Height 157.48 cm 03/05/2018 [facility] Encounters Location Location Details Encounter Type Encounter Number Reason For Visit Attending Provider ADM Date DC Date Status Source [facility] [id number] Afshin Marie 11/28/2015 11/29/2015 [facility] [id number] Afshin Marie 04/21/2016 04/22/2016 [facility] [id number] Afshin Marie 08/04/2017 08/05/2017 [facility] Inpatient [id number] Yoni Ann 03/05/2018 03/11/2018 [facility] [id number] John Sheldonwuma 04/13/2018 04/13/2018 [facility] Inpatient [id number] Shaun Moyaarya 04/22/2018 04/28/2018 [facility] Procedures Procedure Code Date Perfomer Comments Source ORIF - Open reduction and internal fixation of fracture [id number] 03/05/2018 [facility] Assessment and Plan Assessment and Plan Date Source Extracted from:Title: Clinical Document Author: Augustina Calero NP Date: 04/27/18 [facility] PATIENT NAME: NICK CURRIE ATTENDING PHYSICIAN: ROYCE FATIMA CONSULTING PHYSICIAN: Augustina Gorman [employer] DATE OF CONSULT: 04/27/2018 REASON FOR CONSULT: [...] CT lumbar 3. F/u in clinic at [phone] in 1-2 weeks. Augustina Calero [employer] 04/28/2018 [place] Extracted from:Title: Discharge Summary * Author: Yoni Ann MD Date: 03/11/18 Discharge Information Disposition: [facility] facility Condition: Stable Medications: See med reconciliation [...] risk reduction. Continue rehabilitation therapies. Continue Lovenox. -[place] out POD 14 2. Acute postoperative left [...] We are recommending a referral to the half-way center with 1 to 2 hours of therapy per day and 24-hour nursing care. Case mgmt has contacted family. -Plan for SNF today. 03/11/2018 [facility] Plan of Care No Data Provided for This Section Social History Social History Date Source Smoking StatusStart DateEnd Date Unknown if ever smoked 05/14/2018 16:38:13 05/09/2018 SNF: [facility] Social History TypeResponse Alcohol Never Smoking Status Never smoker; Exposure to Tobacco Smoke None; Cigarette Smoking Last 365 Days No; Reg Smoking Cessation Counseling No entered on: 04/23/18 04/23/2018 [facility] No data available for this section 08/05/2017 [facility] Santiago Family History No Data Provided for This Section Advance Directives Order Name Results Value Date Source Advance Directives Advance Directives Cardiopulmonary Resuscitation 05/14/2018 SNF: [facility] Advance Directives Advance Directives Cardiopulmonary Resuscitation 03/31/2018 SNF: [facility] Functional Status No Data Provided for This Section
[2019-06-03 21:45] LABS: BASOPHILS # (AUTO) 0.1 (0.0-0.1); BASOPHILS % 0.8 % (0.0-1.0); EOSINOPHILS # (AUTO) 0.3 (0.0-0.4); HEMATOCRIT 39.5 % (34.2-44.1); HEMOGLOBIN 13.1 g/dL (12.0-16.0); LYMPHOCYTES # (AUTO) 1.9 (1.0-3.2); LYMPHOCYTES % 24.5 % (18.0-39.1); MEAN CORPUSCULAR HGB CONC 33.2 g/dL (31-35); MEAN CORPUSCULAR VOLUME 96.3 fL (81-99); MONOCYTES # (AUTO) 0.8 (0.2-0.8); MONOCYTES % 9.8 % (4.4-11.3); NEUTROPHILS # (AUTO) 4.7 (2.1-6.9); NEUTROPHILS % 60.6 % (38.7-80.0); PLATELET COUNT 251 x10e3/uL (140-360)
[2019-06-03 21:54] LABS: BILIRUBIN,URINE NEGATIVE (NEGATIVE); CLARITY,URINE CLEAR (CLEAR); COLOR,URINE YELLOW (YELLOW); KETONES,URINE NEGATIVE (NEGATIVE); LEUKOCYTE ESTERASE ,URINE NEGATIVE (NEGATIVE); NITRITE,URINE NEGATIVE (NEGATIVE); PROTEIN,URINE DIPSTICK NEGATIVE (NEGATIVE); URINE UROBILINOGEN 0.2 mg/dL (0.2 - 1)
[2019-06-03 22:02] LABS: ALBUMIN 3.6 g/dL (3.5-5.0); ANION GAP 15.7 mmol/L (8-16); CALCIUM 9.8 mg/dL (8.4-10.2); CREATININE, SERUM 0.9 mg/dL (0.57-1.11); POTASSIUM 4.7 mmol/L (3.5-5.1)
--- NOTE | 2019-06-03 22:04 | Diagnostic Imaging Report ---
EXAMINATION: CHEST SINGLE (PORTABLE) INDICATION: ^weak ^[id number] ^[id number] ^Y COMPARISON: 05/28/2019 FINDINGS: AP view TUBES and LINES: None. LUNGS: Lungs are well inflated. Central peribronchial cuffing. Minimal right basilar opacification. PLEURA: No visible pneumothorax. Trace left pleural effusion versus atelectasis/scarring. HEART AND MEDIASTINUM: The cardiomediastinal silhouette is unremarkable. BONES AND SOFT TISSUES: No acute osseous lesion. Soft tissues are unremarkable. UPPER ABDOMEN: No free air under the diaphragm. IMPRESSION: Central peribronchial cuffing. Small right basilar opacification, could represent atelectasis or developing pneumonia in the appropriate clinical context. Trace left pleural effusion versus atelectasis/scarring. Signed by: Dr. Joe Ortiz MD on 06/03/2019 10:00 PM
[2019-06-03 22:05] LABS: EPITHELIAL CELLS,URINE FEW /LPF
[2019-06-03 22:08] LABS: CREATINE KINASE MB 0.8 ng/mL (0-5.0)
== END 2019-06-03 22:43 | disposition home or self-care (01) ==
LOC: ER 21:26
DX: S16.1XXA Strain of muscle, fascia and tendon at neck level, initial encounter (principal); I48.91 Unspecified atrial fibrillation; Z86.73 Personal history of transient ischemic attack (TIA), and cerebral infarction without residual deficits; K21.9 Gastro-esophageal reflux disease without esophagitis
CPT/HCPCS: 36415; 71045; 80053; 81001; 82550; 82553; 84484; 85025; 93005; 99284

== ENCOUNTER 2019-06-09 11:40 | Inpatient (IN) | payer MEDICARE ==
[~2019-06-09] VITALS: Ht 157.5 cm; Wt 58.5 kg
--- OUTSIDE RECORDS SUMMARY | 2019-06-09 11:43 | XMS REPORT | Continuity of Care Document ---
Author Author [employer] Organization [employer] [facility] Address Unknown Phone Unavailable Care Team Providers Care Sourcing Coordinator Name Role Phone [facility] Unavailable Unavailable Problems Problem Status Onset Date Classification Date Reported Comments Source M62.81 MUSCLE WEAKNESS 04/28/2018 Diagnosis 05/14/2018 SNF: [facility] [place] [facility] Walking disability 04/27/2018 Diagnosis 05/14/2018 SNF: [facility] S22.089S UNSPECIFIED FRACTURE OF T11-T12 VERTEBRA, SEQUELA 04/27/2018 Diagnosis 05/14/2018 SNF: [facility] G89.29 OTHER CHRONIC PAIN 04/27/2018 Diagnosis 05/14/2018 SNF: [facility] Z91.81 HISTORY OF FALLING 04/27/2018 Diagnosis 05/14/2018 SNF: [facility] R53.1 WEAKNESS 04/27/2018 Diagnosis 05/14/2018 SNF: [facility] ACUTE UTI,PHYSICAL DECONDITIONING,WEAKNE Active 04/22/2018 [facility] Acute pain of right hip 04/13/2018 04/16/2018 [facility] BACK PAIN Active 04/13/2018 [facility] S72.92XS UNSPECIFIED FRACTURE OF LEFT FEMUR, SEQUELA 03/11/2018 Diagnosis 05/14/2018 SNF: [facility] W19.XXXS UNSPECIFIED FALL, SEQUELA 03/11/2018 Diagnosis 05/14/2018 SNF: [facility] I10 ESSENTIAL HYPERTENSION 03/11/2018 Diagnosis 05/14/2018 SNF: [facility] 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 03/11/2018 Diagnosis 05/14/2018 SNF: [facility] 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 03/11/2018 Diagnosis 05/14/2018 SNF: [facility] FX HIP Active 03/04/2018 [facility] INTRTROCHANTERIC FRACTURE OF FEMUR Active 03/04/2018 [facility] R91.8 - OTHER NONSPECIFIC ABNORMAL FIN Active 04/25/2016 RAD[facility] Santiago D64.9 - "ANEMIA, UNSPECIFIED" Active 04/21/2016 RADHA Santiago DISPLACED INTERTROCHANTERIC FRACTURE OF Active [facility] URINARY TRACT INFECTION, SITE NOT SPECIF Active [facility] OTHER MALAISE Active [facility] WEAKNESS Active [facility] Medications Medication Details Route Status Patient Instructions Ordering Provider Order Date Source Ibuprofen Tablet 800 MG Give 1 tablet by mouth every 8 hours as needed for Pain Oral Active 04/29/2018 SNF: [facility] Cipro Tablet 500 MG Give 1 tablet by mouth two times a day for UTI for 10 Days Oral Active 04/28/2018 SNF: [facility] Tylenol with Codeine #3 Tablet 300-30 MG Give 1 tablet by mouth every 8 hours as needed for PAIN Oral Active 04/28/2018 SNF: [facility] Protonix Tablet Delayed Release 40 MG Give 1 tablet by mouth one time a day for gerd Oral Active 04/28/2018 SNF: [facility] Metoprolol Tartrate Tablet Give 12.5 mg by mouth two times a day for HTN Hold for SBP less than 110, HR less than 60 Oral Active 04/28/2018 SNF: [facility] Lidocaine Patch 5 % Apply to hip topically one time a day for pain and remove per schedule External Active 04/28/2018 SNF: [facility] Cefdinir Capsule 300 MG Give 1 capsule by mouth two times a day for UTI for 7 Days Oral Inactive 04/28/2018 SNF: [facility]a [facility] Cyclobenzaprine HCl Tablet 5 MG Give 1 tablet by mouth every 8 hours as needed for Spasm Oral Active 04/28/2018 SNF: [facility] cefdinir 300 MG Oral Capsule 300 mg=1 cap, PO, [id number], X 7 day, # 14 cap, 0 Refill(s), Pharmacy: [id number] Active 04/27/2018 [facility] DME Prescription See Instructions, MISC, ONCE, Use TSLO brace when upright., # 1 ea, 0 Refill(s) Active 04/27/2018 [facility] ocular lubricant solution Each Affected Eye, QID, PRN Dry Eyes, 0 Refill(s) Active 04/27/2018 [facility] Artificial Tears 1 drp, Route: Each Affected Eye, QID, Drug form: SOLN, PRN Dry Eyes, Start date: 04/27/18 13:11:00 CDT, Duration: 30 day, Stop date: 05/27/18 13:10:00 CDT Inactive 04/27/2018 [facility] Vantin 200 mg, Route: PO, Drug form: TAB, [id number], Dosing Weight 59.545, kg, Start date: 04/25/18 14:00:00 CDT, Duration: 14 day, Stop date: 05/09/18 2:00:00 CDT, ABX Indication: Urinary Tract Infection Inactive 04/25/2018 [facility] cefdinir 300 mg, 1 cap, Route: PO, Drug form: CAP, [id number], Start date: 04/25/18 14:00:00 CDT, Duration: 14 day, Stop date: 05/09/18 2:00:00 CDTNotes: (Same As: Omnicef) No Longer Active 04/25/2018 [facility] Rocephin 1 gm, Route: IVP, [id number], Dosing Weight 59.545, kg, Start date: 04/23/18 21:00:00 CDT, Duration: 7 day, Stop date: 04/29/18 21:00:00 CDT, ABX Indication: Genital Tract InfectionNotes: (Same As: Rocephin). Use with 100 mL NS and infuse over 30 min MEDICATION WASTE Product Size: 1000 mg Product Wasted: ___ mg No Longer Active 04/24/2018 [facility] Acetaminophen 325 MG / Hydrocodone Bitartrate 5 MG Oral Tablet [[place] 5/325] 1 tab, Route: PO, Drug Form: TAB, Dosing Weight 59.545, kg, Q4H, PRN Pain Score 1-3, Start date: 04/23/18 15:42:00 CDT, Duration: 30 day, Stop date: 05/23/18 15:41:00 CDTNotes: (Same as: [place] 325/5) Do not exceed 4gm/day of acetaminophen. No Longer Active 04/23/2018 [facility] Lovenox 40 mg, 0.4 mL, Route: SUB-Q, Drug form: INJ, [id number], Dosing Weight 59.545, kg, Start date: 04/23/18 9:00:00 CDT, Duration: 30 day, Stop date: 05/22/18 9:00:00 CDTNotes: (Same as: Lovenox) No Longer Active 04/23/2018 [facility] Protonix 40 mg, 1 tab, Route: PO, Drug form: ECTAB, Daily, Dosing Weight 59.545, kg, Start date: 04/23/18 9:00:00 CDT, Duration: 30 day, Stop date: 05/22/18 9:00:00 CDTNotes: Tablet should not be chewed or crushed. (Same as: Protonix) No Longer Active 04/23/2018 [facility] Lopressor 12.5 mg, 0.5 tab, Route: PO, Drug form: TAB, Q12H, Dosing Weight 59.545, kg, Start date: 04/23/18 9:00:00 CDT, Duration: 30 day, Stop date: 05/22/18 21:00:00 CDTNotes: (Same as: Lopressor) No Longer Active 04/23/2018 [facility] Lidocaine 0.05 MG/MG Transdermal Patch 1 patch, Route: TOP, Daily, Drug form: FILM, Start date: 04/23/18 9:00:00 CDT, Duration: 30 day, Stop date: 05/22/18 9:00:00 CDTNotes: Apply only once for up to 12 hours in a 24-hour period (12 hours on and 12 hours off). (Same as: Lidoderm) "Remove old patch before application of new patch" No Longer Active 04/23/2018 [facility] cyclobenzaprine 5 mg, 0.5 tab, Route: PO, Drug form: TAB, TID, Dosing Weight 59.545, kg, PRN Spasm, Start date: 04/23/18 4:27:00 CDT, Duration: 30 day, Stop date: 05/23/18 4:26:00 CDTNotes: (Same As: Flexeril) No Longer Active 04/23/2018 [facility] Acetaminophen 650 mg, 2 tab, Route: PO, Drug form: TAB, Q4H, Dosing Weight 59.545, kg, PRN Pain 1-3/Temp > 100.4 F, Start date: 04/22/18 23:07:00 CDT, Duration: 30 day, Stop date: 05/22/18 23:06:00 CDTNotes: Do not exceed 4 gm/day. (Same as: Tylenol) No Longer Active 04/23/2018 [facility] Ondansetron 4 mg, 2 mL, Route: IVP, Drug form: INJ, Q6H, Dosing Weight 59.545, kg, PRN Nausea & Vomiting, Start date: 04/22/18 23:07:00 CDT, Duration: 30 day, Stop date: 05/22/18 23:06:00 CDTNotes: (Same as: Zofran) MEDICATION WASTE Product Size: 4 mg Product Wasted: ___ mg No Longer Active 04/23/2018 [facility] Ceftriaxone 1 gm, Route: IVPB, ONCE, Dosing Weight 56.818, kg, Priority: STAT, Start date: 04/22/18 20:30:00 CDT, Stop date: 04/22/18 20:30:00 CDT, ABX Indication: Urinary Tract Infection Inactive 04/23/2018 [facility] Acetaminophen 325 MG / Hydrocodone Bitartrate 5 MG Oral Tablet [[place] 5/325] 1 tab, Route: PO, Drug Form: TAB, Dosing Weight 60.909, kg, ONCE, STAT, Start date: 04/13/18 15:48:00 CDT, Stop date: 04/13/18 15:48:00 CDTNotes: (Same as: [place] 325/5) Do not exceed 4gm/day of acetaminophen. Inactive 04/13/2018 [facility] Tylenol 975 mg, 3 tab, Route: [...] date Oral Active 03/28/2018 SNF: [facility] MetroNIDAZOLE Tablet 500 MG Give 500 mg by mouth three times a day for diverticulitis needs stop date Oral Active 03/28/2018 SNF: [facility] Xarelto Tablet 10 MG Give 1 tablet by mouth one time a day related to UNSPECIFIED FRACTURE OF LEFT FEMUR, SEQUELA (S72.92XS) Oral Active 03/13/2018 SNF: [facility] Lidocaine Patch 5 % Apply to hip topically one time a day for pain and remove per schedule External Active 03/12/2018 SNF: [facility] Enoxaparin Sodium Solution 40 MG/0.4ML Inject 0.4 ml subcutaneously one time a day for Prophylactic for 2 Days Subcutaneous Active 03/12/2018 SNF: [facility] Levaquin Tablet 500 MG Give 1 tablet by mouth one time a day for Prophylactic for 7 Days Oral Active 03/12/2018 SNF: [facility] Metoprolol Tartrate Tablet Give 12.5 mg by mouth two times a day for HTN Hold for SBP less than 110, HR less than 60 Oral Active 03/11/2018 SNF: [facility] Cyclobenzaprine HCl Tablet 5 MG Give 1 tablet by mouth every 8 hours as needed for Spasm Oral Active 03/11/2018 SNF: [facility] [place] Tablet 7.5-325 MG Give 1 tablet by mouth every 6 hours as needed for pain Oral Active 03/11/2018 SNF: [facility] Levofloxacin 500 MG Oral Tablet [Levaquin] 500 mg=1 tab, PO, Q24H, X 7 day, # 7 tab, 0 Refill(s) Active 03/11/2018 [facility] cyclobenzaprine 10 mg oral tablet 5 mg=0.5 tab, PO, TID, PRN Spasm, 0 Refill(s) Active 03/11/2018 [facility] metoprolol tartrate 25 mg oral tablet 12.5 mg=0.5 tab, PO, Q12H, 0 Refill(s) Active 03/11/2018 [facility] Potassium Chloride 40 mEq, 2 tab, [...] Patient’s with feeding tube less than 14 Citizen [place] (Dobhoff, J-tube etc) and pediatric and patients. With food and full glass of water Inactive 03/11/2018 [facility] metoprolol tartrate 12.5 mg, 0.5 tab, Route: PO, Drug form: TAB, Q12H, Dosing Weight 60.909, kg, Start date: 03/11/18 9:00:00 CDT, Duration: 30 day, Stop date: 04/09/18 21:00:00 CDTNotes: (Same as: Lopressor) Inactive 03/11/2018 [facility] Melatonin 3 mg, 1 tab, Route: PO, Drug form: TAB, Bedtime, Dosing Weight 60.909, kg, PRN Sleep, Start date: 03/10/18 14:42:00 CDT, Duration: 30 day, Stop date: 04/09/18 14:41:00 CDTNotes: (Same as: Melatonin) No Longer Active 03/10/2018 [facility] Tylenol 650 mg, 2 tab, Route: PO, Drug form: TAB, Q6H, Dosing Weight 60.909, kg, PRN Pain Score 4-6, Start date: 03/10/18 14:42:00 CDT, Duration: 30 day, Stop date: 04/09/18 14:41:00 CDTNotes: Do not exceed 4 gm/day. (Same as: Tylenol) No Longer Active 03/10/2018 [facility] Zosyn 3.375 gm, Route: IVPB, [id number], Dosing Weight 60.909, kg, CrCl >=20 ml/min infuse over 4 hours, Start date: 03/09/18 20:00:00 CDT, Duration: 10 day, Stop date: 03/19/18 12:00:00 CDT, ABX Indication: Other (specify in Comments)Notes: (Same as: Zosyn) Dosing based on Piperacillin component MEDICATION WASTE Product Size: 3375 mg Product Wasted: ___ mg No Longer Active 03/10/2018 [facility] Lidocaine 0.05 MG/MG Transdermal Patch 1 patch, TOP, Daily, 0 Refill(s) Active 03/09/2018 [facility] Enoxaparin 40 mg=0.4 mL, SUB-Q, [id number], 0 Refill(s) Active 03/09/2018 [facility] metoprolol extended release 12.5 mg, 0.5 tab, Route: PO, Drug form: ERTAB, Q12H, Start date: 03/08/18 21:00:00 CDT, Duration: 30 day, Stop date: 04/07/18 9:00:00 CDTNotes: (Same as: Toprol XL) Do Not Crush No Longer Active 03/09/2018 [facility] metoprolol 25 mg oral tablet, extended release 25 mg=1 tab, PO, Daily, # 30 tab, 0 Refill(s) No Longer Active 03/08/2018 [facility] Acetaminophen 325 MG / Hydrocodone Bitartrate 7.5 MG Oral Tablet [[place] 7.5/325] 1 tab, Route: PO, Drug Form: TAB, Dosing Weight 60.909, kg, Q6H, PRN Pain Score 4-6, Start date: 03/08/18 12:53:00 CDT, Duration: 30 day, Stop date: 04/07/18 12:52:00 CDTNotes: Same as [place] 325-7.5mg Do not exceed 4gm/day of acetaminophen. No Longer Active 03/08/2018 [facility] Acetaminophen 325 MG / Hydrocodone Bitartrate 5 MG Oral Tablet [[place] 5/325] 1 tab, Route: PO, Drug Form: TAB, Dosing Weight 60.909, kg, Q6H, PRN Pain Score 1-3, Start date: 03/07/18 17:26:00 CDT, Duration: 30 day, Stop date: 04/06/18 17:25:00 CDTNotes: (Same as: [place] 325/5) Do not exceed 4gm/day of acetaminophen. No Longer Active 03/07/2018 [facility] Morphine 6 mg, 3 mL, Route: PO, Drug form: SOLN, Q4H, Dosing Weight 60.909, kg, PRN Pain Score 7-10, Start date: 03/07/18 17:26:00 CDT, Stop date: 04/06/18 17:25:00 CDTNotes: (Same as:MORPhine Sulfate) No Longer Active 03/07/2018 [facility] normal saline 0.9% IV 250 mL 250 mL, Rate: 30 ml/hr, Infuse over: 8.3 hr, Route: IV, Dosing Weight 60.909 kg, Total Volume: 250, Start date: 03/07/18 6:23:00 CDT, Duration: 1 day, Stop date: 03/08/18 6:22:00 CDT, 1.65, m2 No Longer Active 03/07/2018 [facility] remove patch Route: TOP, Bedtime, Drug form: ERFILM, Start date: 03/06/18 21:00:00 CDT, Duration: 30 day, Stop date: 04/04/18 21:00:00 CDTNotes: Remove patch 12 hours after application each day. No Longer Active 03/07/2018 [facility] Tylenol 1,000 mg, 2 tab, Route: PO, Drug form: TAB, TID, Dosing Weight 60.909, kg, Start date: 03/06/18 12:00:00 CDT, Duration: 30 day, Stop date: 04/05/18 6:00:00 CDTNotes: Max acetaminophen 4000 mg/day (4 gm/day). (Same as: Tylenol Extra Strength) No Longer Active 03/06/2018 [facility] pantoprazole 40 mg, 1 tab, Route: PO, Drug form: ECTAB, Daily, Dosing Weight 60.909, kg, Start date: 03/06/18 9:00:00 CDT, Duration: 30 day, Stop date: 04/04/18 9:00:00 CDTNotes: Tablet should not be chewed or cr ushed. (Same as: Protonix) No Longer Active 03/06/2018 [facility] Docusate Sodium 100 MG Oral Capsule 100 mg, 1 cap, Route: PO, Drug form: CAP, BID, Dosing Weight 60.909, kg, Start date: 03/06/18 9:00:00 CDT, Duration: 30 day, Stop date: 04/04/18 17:00:00 CDTNotes: (Same as: Colace) (Do Not Crush) No Longer Active 03/06/2018 [facility] Flexeril 5 mg, 0.5 tab, Route: PO, Drug form: TAB, TID, Dosing Weight 60.909, kg, PRN Spasm, Start date: 03/06/18 9:00:00 CDT, Duration: 30 day, Stop date: 04/05/18 8:59:00 CDTNotes: (Same As: Flexeril) No Longer Active 03/06/2018 [facility] Lidocaine 0.05 MG/MG Transdermal Patch 1 patch, Route: TOP, Daily, Drug form: FILM, Start date: 03/06/18 9:00:00 CDT, Duration: 30 day, Stop date: 04/04/18 9:00:00 CDTNotes: Apply only once for up to 12 hours in a 24-hour period (12 hours on and 12 hours off). (Same as: Lidoderm) "Remove old patch before application of new patch" No Longer Active 03/06/2018 [facility] Enoxaparin 40 mg, 0.4 mL, Route: SUB-Q, Drug form: INJ, [id number], Dosing Weight 60.909, kg, Start date: 03/06/18 9:00:00 CDT, Stop date: 04/03/18 9:00:00 CDTNotes: (Same as: Lovenox) No Longer Active 03/06/2018 [facility] Tylenol 1,000 mg, 2 tab, Route: PO, Drug form: TAB, Daily, Dosing Weight 60.909, kg, PRN Pain Score 4-6, Start date: 03/06/18 8:57:00 CDT, Duration: 30 day, Stop date: 04/05/18 8:56:00 CDTNotes: Max acetaminophen 4000 mg/day (4 gm/day). (Same as: Tylenol Extra Strength) No Longer Active 03/06/2018 [facility] Cefazolin 1 gm, Route: IVP, Q8H, Dosing Weight 60.909, kg, Start date: 03/06/18 1:00:00 CDT, Duration: 1 doses or times, Stop date: 03/06/18 1:00:00 CDT, ABX Indication: Surgical ProphylaxisNotes: (Same As: William Win) MEDICATION WASTE Product Size: 1000 mg Product Wasted: ___ mg Inactive 03/06/2018 [facility] Clindamycin 600 mg, 50 mL, Route: IVPB, Drug form: INJ, [id number], Dosing Weight 60.909, kg, Start date: 03/05/18 21:00:00 CDT, Duration: 1 doses or times, Stop date: 03/05/18 21:00:00 CDT, ABX Indication: Surgical Prophylaxis Inactive 03/06/2018 [facility] Labetalol 10 mg, Route: IVP, Q5Min, Dosing Weight 60.909, kg, PRN Elevated BP, Start date: 03/05/18 18:45:00 CDT, Duration: 5 doses or times, Stop date: Limited # of times Inactive 03/05/2018 [facility] Acetaminophen 1,000 mg, Route: PO, Drug form: TAB, ONCE, Dosing Weight 60.909, kg, PRN Pain Score 1-3, Start date: 03/05/18 18:45:00 CDT Inactive 03/05/2018 [facility] Hydralazine 10 mg, Route: IVP, Q20Min, Dosing Weight 60.909, kg, PRN Elevated BP, Start date: 03/05/18 18:45:00 CDT, Duration: 2 doses or times, Stop date: Limited # of times Inactive 03/05/2018 [facility] esmolol 10 mg, Route: IVP, Q5Min, Dosing Weight 60.909, kg, PRN Other -See Comment, Start date: 03/05/18 18:45:00 CDT, Duration: 5 doses or times, Stop date: Limited # of times Inactive 03/05/2018 [facility] Calcium Chloride 0.0014 MEQ/ML / Potassium Chloride 0.004 MEQ/ML / Sodium Chloride 0.103 MEQ/ML / Sodium Lactate 0.028 MEQ/ML Injectable Solution 1,000 mL, Rate: 125 ml/hr, Infuse over: 8 hr, Route: IV, Dosing Weight 60.909 kg, Total Volume: 1,000, Start date: 03/05/18 18:45:00 CDT, Duration: 30 day, Stop date: 04/04/18 18:44:00 CDT, 1.65, m2 Inactive 03/05/2018 [facility] Diphenhydramine 12.5 mg, Route: IVP, Drug form: INJ, Q6H, Dosing Weight 60.909, kg, PRN Itching, Start date: 03/05/18 18:45:00 CDT, Duration: 30 day, Stop date: 04/04/18 18:44:00 CDT Inactive 03/05/2018 [facility] Albuterol 0.83 MG/ML Inhalant Solution 2.49 mg, Route: NEB, Q20Min, Dosing Weight 60.909, kg, PRN Wheezing, Priority: STAT, Start date: 03/05/18 18:45:00 CDT, Duration: 30 day, Stop date: 04/04/18 18:44:00 CDT Inactive 03/05/2018 [facility] Flumazenil 0.2 mg, Route: IVP, PRN, Dosing Weight 60.909, kg, PRN Benzodiazepine Reversal, Initial dose, Start date: 03/05/18 18:45:00 CDT, Duration: 30 day, Stop date: 04/04/18 18:44:00 CDT Inactive 03/05/2018 [facility] Naloxone 0.4 mg, Route: IVP, Q2MIN, Dosing Weight 60.909, kg, PRN Narcotic Reversal, Start date: 03/05/18 18:45:00 CDT, Duration: 8 doses or times, Stop date: Limited # of times Inactive 03/05/2018 [facility] Hydromorphone 0.5 mg, Route: IVP, Q5Min, Dosing Weight 60.909, kg, PRN Pain Score 7-10, Start date: 03/05/18 18:45:00 CDT, Duration: 4 doses or times, Stop date: Limited # of times Inactive 03/05/2018 [facility] Fentanyl 50 microgram, Route: IVP, Q5Min, Dosing Weight 60.909, kg, PRN Pain Score 7-10, Priority: Routine, Start date: 03/05/18 18:45:00 CDT, Duration: 2 doses or times, Stop date: Limited # of times Inactive 03/05/2018 [facility] Morphine 4 mg, Route: IVP, Q5Min, Dosing Weight 60.909, kg, PRN Pain Score 7-10, Start date: 03/05/18 18:45:00 CDT, Duration: 3 doses or times, Stop date: Limited # of times Inactive 03/05/2018 [facility] Oxycodone 5 mg, Route: PO, Drug form: TAB, Q4H, Dosing Weight 60.909, kg, PRN Pain Score 4-6, Start date: 03/05/18 18:45:00 CDT, Duration: 30 day, Stop date: 04/04/18 18:44:00 CDT Inactive 03/05/2018 [facility] Meperidine 12.5 mg, Route: IVP, Q30Min, Dosing Weight 60.909, kg, PRN Other -See Comment, For shivering, Start date: 03/05/18 18:45:00 CDT, Duration: 2 doses or times, Stop date: Limited # of times Inactive 03/05/2018 [facility] Dexamethasone 4 mg, Route: IVP, ONCE, Dosing Weight 60.909, kg, PRN Nausea & Vomiting, Start date: 03/05/18 18:45:00 CDT Inactive 03/05/2018 [facility] Ondansetron 4 mg, Route: IVP, ONCE, Dosing Weight 60.909, kg, PRN Nausea & Vomiting, Start date: 03/05/18 18:45:00 CDT Inactive 03/05/2018 [facility] Dulcolax Laxative 5 mg, 1 tab, Route: PO, Drug form: ECTAB, Q24H, Dosing Weight 60.909, kg, PRN Constipation, Start date: 03/05/18 18:37:00 CDT, Duration: 30 day, Stop date: 04/04/18 18:36:00 CDTNotes: (Same As: Dulcolax , Correctol) (Do Not Crush) "Do Not Crush" No Longer Active 03/05/2018 [facility] Diphenhydramine 12.5 mg, 0.5 tab, Route: PO, Drug form: TAB, Q6H, Dosing Weight 60.909, kg, PRN Itching, Start date: 03/05/18 18:37:00 CDT, Duration: 30 day, Stop date: 04/04/18 18:36:00 CDT No Longer Active 03/05/2018 [facility] Al hydroxide/Mg hydroxide/simethicone 200 mg-200 mg-20 mg/5 mL oral suspension 30 ml, Route: PO, Drug Form: SUSP, Dosing Weight 60.909, kg, Q4H, PRN Indigestion, Start date: 03/05/18 18:37:00 CDT, Duration: 30 day, Stop date: 04/04/18 18:36:00 CDTNotes: (aluminum hydroxide-magnesium hyd- simethicone [phone]/5ml 30 ml ud GRISELDA) No Longer Active 03/05/2018 [facility] Lactated Ringers IV 1,000 mL 1,000 mL, Rate: 75 ml/hr, Infuse over: 13.3 hr, Route: IV, Dosing Weight 60.909 kg, Total Volume: 1,000, Start date: 03/05/18 18:37:00 CDT, Duration: 30 day, Stop date: 04/04/18 18:36:00 CDT, 1.65, m2 No Longer Active 03/05/2018 [facility] Acetaminophen 650 mg, 2 tab, Route: PO, Drug form: TAB, Q4H, Dosing Weight 60.909, kg, PRN Pain 1-3/Temp > 100.4 F, Start date: 03/05/18 18:37:00 CDT, Duration: 30 day, Stop date: 04/04/18 18:36:00 CDTNotes: Do not exceed 4 gm/day. (Same as: Tylenol) No Longer Active 03/05/2018 [facility] rocuronium (ANES) Route: IV, Drug form: INJ, ONCE, Stop date: 03/05/18 18:33:00 CDT Inactive 03/05/2018 [facility] fentaNYL (ANES) Route: IV, Drug form: INJ, ONCE, Stop date: 03/05/18 18:33:00 CDT Inactive 03/05/2018 [facility] ondansetron (ANES) Route: IV, Drug form: INJ, ONCE, Stop date: 03/05/18 18:33:00 CDT Inactive 03/05/2018 [facility] metoprolol (ANES) Route: IV, Drug form: INJ, ONCE, Stop date: 03/05/18 18:33:00 CDT Inactive 03/05/2018 [facility] dexamethasone (ANES) Route: IV, Drug form: INJ, ONCE, Stop date: 03/05/18 18:33:00 CDT Inactive 03/05/2018 [facility] glycopyrrolate (ANES) Route: IV, Drug form: INJ, ONCE, Stop date: 03/05/18 18:33:00 CDT Inactive 03/05/2018 [facility] neostigmine (ANES) Route: IV, Drug form: INJ, ONCE, Stop date: 03/05/18 18:33:00 CDT Inactive 03/05/2018 [facility] esmolol (ANES) Route: IV, Drug form: INJ, ONCE, Stop date: 03/05/18 18:33:00 CDT Inactive 03/05/2018 [facility] Amidate (ANES) Route: IV, Drug form: INJ, ONCE, Stop date: 03/05/18 18:33:00 CDT Inactive 03/05/2018 [facility] norepinephrine (ANES) Route: IV, Drug form: INJ, ONCE, Stop date: 03/05/18 18:03:00 CDT Inactive 03/05/2018 [facility] metoclopramide (ANES) Route: IV, Drug form: INJ, ONCE, Stop date: 03/05/18 18:03:00 CDT Inactive 03/05/2018 [facility] lidocaine (ANES) Route: IV, Drug form: INJ, ONCE, Stop date: 03/05/18 18:03:00 CDT Inactive 03/05/2018 [facility] fentaNYL (ANES) Route: IV, Drug form: INJ, ONCE, Stop date: 03/05/18 17:48:00 CDT Inactive 03/05/2018 [facility] cefOXitin (ANES) Route: IV, Drug form: INJ, ONCE, Stop date: 03/05/18 17:48:00 CDT Inactive 03/05/2018 [facility] propofol (ANES) Route: IV, Drug form: INJ, ONCE, Stop date: 03/05/18 17:48:00 CDT Inactive 03/05/2018 [facility] ceFAZolin (ANES) Route: IV, Drug form: INJ, ONCE, Stop date: 03/05/18 17:38:00 CDT Inactive 03/05/2018 [facility] midazolam (ANES) Route: IV, Drug form: SOLN, ONCE, Stop date: 03/05/18 17:33:00 CDT Inactive 03/05/2018 [facility] metoprolol tartrate 12.5 mg, 0.5 tab, Route: PO, Drug form: TAB, BID, Dosing Weight 60.909, kg, Start date: 03/05/18 17:00:00 CDT, Duration: 30 day, Stop date: 04/04/18 9:00:00 CDTNotes: (Same as: Lopressor) No Longer Active 03/05/2018 [facility] Lactated Ringers Injection IV (ANES) 1000 mL Route: IV, Total Volume: 1,000, Start date: 03/05/18 16:58:00 CDT, Stop date: 03/05/18 17:58:00 CDT Inactive 03/05/2018 [facility] Protonix 40 mg, 1 tab, Route: PO, Drug form: ECTAB, Before Dinner, Dosing Weight 60.909, kg, Start date: 03/05/18 16:30:00 CDT, Duration: 30 day, Stop date: 04/03/18 16:30:00 CDTNotes: Tablet should not be chewed or crushed. (Same as: Protonix) Inactive 03/05/2018 [facility] Hydralazine 10 mg, 0.5 mL, Route: IVP, Drug form: INJ, Q4H, Dosing Weight 60.909, kg, PRN Hypertension, Start date: 03/05/18 10:13:00 CDT, Duration: 30 day, Stop date: 04/04/18 10:12:00 CDTNotes: (Same as: [place] pena) Push over 5 minutes No Longer Active 03/05/2018 [facility] Melatonin 3 mg, 1 tab, Route: PO, Drug form: TAB, Bedtime, Dosing Weight 60.909, kg, PRN Sleep, Start date: 03/05/18 10:13:00 CDT, Duration: 30 day, Stop date: 04/04/18 10:12:00 CDTNotes: (Same as: Melatonin) No Longer Active 03/05/2018 [facility] Streptococcus pneumoniae serotype 1 capsular antigen diphtheria [id number] protein conjugate vaccine / Streptococcus pneumoniae serotype 14 capsular antigen diphtheria [id number] protein conjugate vaccine / Streptococcus pneumoniae serotype 18C capsular antigen d 0.5 mL, Route: IM, Drug Form: INJ, Daily, Start date: 03/05/18 9:00:00 CDT, Duration: 1 doses or times, Stop date: 03/05/18 9:00:00 CDTNotes: Shake well prior to use (Same as: Prevnar 13) Inactive 03/05/2018 [facility] NURSE please update PT's HEIGHT in [place] when possible NURSE please update PT's HEIGHT in [place] when possible, 1, Drug form: MISC, Route: MISC, Q30Min, 03/05/18 8:00:00 CDT, Duration: 4 doses or times, Stop date: 03/05/18 9:30:00 CDT Inactive 03/05/2018 [facility] Ancef + sterile water 20 mL 2 gm, Route: IV, ONCE, Dosing Weight 60.909, kg, Start date: 03/05/18 7:49:00 CDT, Stop date: 03/05/18 7:49:00 CDT, Surgical Prophylaxis Only; For patients Notes: (Same As: Ancef, Kefzol) MEDICATION WASTE Product Size: 1000 mg Product Wasted: ___ mg Inactive 03/05/2018 [facility] hydromorphone 0.3 mg, 0.3 mL, Route: IV, Drug form: INJ, Q4H, PRN Pain Score 7-10, Start date: 03/05/18 5:00:00 CDT, Duration: 30 day, Stop date: 04/04/18 4:59:00 CDTNotes: Same as: Dilaudid No Longer Active 03/05/2018 [facility] metoprolol tartrate 25 mg, PO, BID, metoprolol 2mg 1/2 tab twice daily per medication bottle, 0 Refill(s) No Longer Active 03/05/2018 [facility] Protonix 40 mg, PO, Daily, # 30 tab, 0 Refill(s) Active 03/05/2018 [facility] Fentanyl 50 microgram, Route: IVP, ONCE, Dosing Weight 66.364, kg, Priority: STAT, Start date: 03/04/18 23:59:00 CDT, Stop date: 03/04/18 23:59:00 CDT No Longer Active 03/05/2018 [facility] Saline Flush 0.9% 10 ml, Route: IVP, Drug Form: INJ, Dosing Weight 66.364, kg, PRN, PRN Line Flush, Start date: 03/04/18 23:58:00 CDT, Duration: 30 day, Stop date: 04/03/18 23:57:00 CDTNotes: (Same as: BD Posiflush) No Longer Active 03/05/2018 [facility] Sodium Chloride 0.9% IV 1,000 mL 1,000 mL, Rate: 75 ml/hr, Infuse over: 13.3 hr, Route: IV, Dosing Weight 66.364 kg, Total Volume: 1,000, Start date: 03/04/18 23:58:00 CDT, Duration: 30 day, Stop date: 04/03/18 23:57:00 CDT No Longer Active 03/05/2018 [facility] Acetaminophen 325 MG / Hydrocodone Bitartrate 5 MG Oral Tablet 2 tab, Route: PO, Drug Form: TAB, Dosing Weight 66.364, kg, Q4H, PRN Pain Score 7-10, Start date: 03/04/18 23:58:00 CDT, Duration: 30 day, Stop date: 04/03/18 23:57:00 CDTNotes: (Same as: [place] 325/5) Do not exceed 4gm/day of acetaminophen. No Longer Active 03/05/2018 [facility] Morphine 2 mg, Route: IVP, Q4H, Dosing Weight 66.364, kg, PRN Pain Score 7-10, Start date: 03/04/18 23:58:00 CDT, Duration: 30 day, Stop date: 04/03/18 23:57:00 CDT No Longer Active 03/05/2018 [facility] Dilaudid 0.5 mg, 0.5 mL, Route: IVP, Drug form: INJ, ONCE, Dosing Weight 66.364, kg, Priority: STAT, Start date: 03/04/18 23:37:00 CDT, Stop date: 03/04/18 23:37:00 CDTNotes: Same as: Dilaudid No Longer Active 03/05/2018 [facility] Fentanyl 50 microgram, Route: IVP, ONCE, Dosing Weight 66.364, kg, Priority: STAT, Start date: 03/04/18 21:49:00 CDT, Stop date: 03/04/18 21:49:00 CDT Inactive 03/05/2018 [facility] Allergies, Adverse Reactions, Alerts Substance Category Reaction Severity Reaction type Status Date Reported Comments Source CODINE Assertion Drug allergy Active 01/10/2003 [facility] Tramadol 03/11/2018 [facility] Codeine 03/12/2018 [facility] Penicillin 03/12/2018 [facility] PCN Assertion Drug allergy Active [facility] traMADol Assertion Drug allergy Active [facility] Immunizations Immunization Date Given Site Status Last Updated Comments Source pneumococcal 13-valent vaccine 03/05/2018 Left deltoid completed Meag[facility] Results Order Name Results Value Reference Range Date Interpretation Comments Source CHEM PANEL A/G Ratio 1.0 0.7 - 1.6 04/26/2018 [facility] CHEM PANEL AGAP 8.9 10.0 - 20.0 04/26/2018 [facility] CHEM PANEL Globulin 3.1 2.7 - 4.2 04/26/2018 [facility] CHEM PANEL B/C Ratio 19 6 - 25 04/26/2018 [facility] CHEM PANEL eGFR 80 04/26/2018 Result [...] should be multiplied by the estimated BMI. [facility] CHEM PANEL Alk Phos 104 39 - 136 04/26/2018 [facility] CHEM PANEL Bili Total 0.3 0.2 - 1.3 04/26/2018 [facility] CHEM PANEL AST 14 0 - 37 04/26/2018 [facility] CHEM PANEL Sodium Lvl 140 135 - 145 04/26/2018 [facility] CHEM PANEL BUN 13 7 - 22 04/26/2018 [facility] CHEM PANEL Creatinine Lvl 0.67 0.50 - 1.40 04/26/2018 [facility] CHEM PANEL Glucose Lvl 80 70 - 99 04/26/2018 [facility] CHEM PANEL Albumin Lvl 3.0 3.5 - 5.0 04/26/2018 [facility] CHEM PANEL ALT 12 0 - 65 04/26/2018 [facility] CHEM PANEL CO2 27 24 - 32 04/26/2018 [facility] CHEM PANEL Calcium Lvl 8.7 8.5 - 10.5 04/26/2018 [facility] CHEM PANEL Potassium Lvl 3.9 3.5 - 5.1 04/26/2018 [facility] CHEM PANEL Chloride Lvl 108 95 - 109 04/26/2018 [facility] CHEM PANEL Total Protein 6.1 6.4 - 8.4 04/26/2018 [facility] HEMATOLOGY MCV 91.1 80.0 - 98.0 04/26/2018 [facility] HEMATOLOGY Hct 38.5 36.0 - 48.0 04/26/2018 [facility] HEMATOLOGY Hgb 12.9 12.0 - 16.0 04/26/2018 [facility] MCHC 33.5 32.0 - 36.0 04/26/2018 [facility] MCH 30.5 27.0 - 31.0 04/26/2018 [facility] MPV 8.4 7.4 - 10.4 04/26/2018 [facility] Platelet 184 133 - 450 04/26/2018 [facility] HEMATOLOGY RDW 16.2 11.5 - 14.5 04/26/2018 [facility] HEMATOLOGY RBC 4.23 4.20 - 5.40 04/26/2018 [facility] HEMATOLOGY WBC 5.2 3.7 - 10.4 04/26/2018 [facility] HEMATOLOGY Segs-Bands # 2.9 1.5 - 8.1 04/26/2018 [facility] HEMATOLOGY Eosinophils # 0.1 0.0 - 0.5 04/26/2018 [facility] HEMATOLOGY Monocytes # 0.6 0.0 - 0.8 04/26/2018 [facility] HEMATOLOGY Lymphocytes # 1.5 1.0 - 5.5 04/26/2018 [facility] HEMATOLOGY Segs 55.8 45.0 - 75.0 04/26/2018 [facility] HEMATOLOGY Basophils 0.6 0.0 - 1.0 04/26/2018 [facility] HEMATOLOGY Eosinophils 2.9 0.0 - 4.0 04/26/2018 [facility] Monocytes 11.5 2.0 - 12.0 04/26/2018 [facility] Lymphocytes 29.2 20.0 - 40.0 04/26/2018 [facility] CHEM PANEL eGFR 74 04/25/2018 Result [...] should be multiplied by the estimated BMI. [facility] CHEM PANEL Bili Total 0.5 0.2 - 1.3 04/25/2018 [facility] CHEM PANEL B/C Ratio 18 6 - 25 04/25/2018 [facility] CHEM PANEL Albumin Lvl 2.8 3.5 - 5.0 04/25/2018 [facility] CHEM PANEL Total Protein 6.2 6.4 - 8.4 04/25/2018 [facility] CHEM PANEL Globulin 3.4 2.7 - 4.2 04/25/2018 [facility] CHEM PANEL ALT 13 0 - 65 04/25/2018 [facility] CHEM PANEL A/G Ratio 0.8 0.7 - 1.6 04/25/2018 [facility] CHEM PANEL Chloride Lvl 110 95 - 109 04/25/2018 [facility] CHEM PANEL CO2 24 24 - 32 04/25/2018 [facility] CHEM PANEL AGAP 11.9 10.0 - 20.0 04/25/2018 [facility] CHEM PANEL Calcium Lvl 8.7 8.5 - 10.5 04/25/2018 [facility] CHEM PANEL Alk Phos 104 39 - 136 04/25/2018 [facility] CHEM PANEL AST 13 0 - 37 04/25/2018 [facility] CHEM PANEL Potassium Lvl 3.9 3.5 - 5.1 04/25/2018 [facility] CHEM PANEL Sodium Lvl 142 135 - 145 04/25/2018 [facility] CHEM PANEL Glucose Lvl 83 70 - 99 04/25/2018 [facility] CHEM PANEL Creatinine Lvl 0.74 0.50 - 1.40 04/25/2018 [facility] CHEM PANEL BUN 13 7 - 22 04/25/2018 [facility] HEMATOLOGY Eosinophils 2.6 0.0 - 4.0 04/25/2018 [facility] HEMATOLOGY Monocytes 11.9 2.0 - 12.0 04/25/2018 [facility] HEMATOLOGY Lymphocytes 24.7 20.0 - 40.0 04/25/2018 [facility] HEMATOLOGY Monocytes # 0.6 0.0 - 0.8 04/25/2018 [facility] HEMATOLOGY Eosinophils # 0.1 0.0 - 0.5 04/25/2018 [facility] HEMATOLOGY Segs-Bands # 3.2 1.5 - 8.1 04/25/2018 [facility] HEMATOLOGY Basophils 0.9 0.0 - 1.0 04/25/2018 [facility] HEMATOLOGY Lymphocytes # 1.3 1.0 - 5.5 04/25/2018 [facility] HEMATOLOGY Segs 59.9 45.0 - 75.0 04/25/2018 [facility] HEMATOLOGY RDW 16.8 11.5 - 14.5 04/25/2018 [facility] HEMATOLOGY Platelet 187 133 - 450 04/25/2018 [facility] HEMATOLOGY MCH 30.8 27.0 - 31.0 04/25/2018 [facility] HEMATOLOGY MCHC 33.5 32.0 - 36.0 04/25/2018 [facility] HEMATOLOGY MPV 8.5 7.4 - 10.4 04/25/2018 [facility] HEMATOLOGY WBC 5.3 3.7 - 10.4 04/25/2018 [facility] HEMATOLOGY Hct 39.0 36.0 - 48.0 04/25/2018 [facility] HEMATOLOGY MCV 91.8 80.0 - 98.0 04/25/2018 [facility] HEMATOLOGY RBC 4.25 4.20 - 5.40 04/25/2018 [facility] HEMATOLOGY Hgb 13.1 12.0 - 16.0 04/25/2018 [facility] CHEM PANEL eGFR 77 04/24/2018 Result [...] should be multiplied by the estimated BMI. [facility] CHEM PANEL Calcium Lvl 8.9 8.5 - 10.5 04/24/2018 [facility] CHEM PANEL Chloride Lvl 110 95 - 109 04/24/2018 [facility] CHEM PANEL Alk Phos 101 39 - 136 04/24/2018 [facility] CHEM PANEL AST 9 0 - 37 04/24/2018 [facility] CHEM PANEL CO2 27 24 - 32 04/24/2018 [facility] CHEM PANEL Albumin Lvl 3.1 3.5 - 5.0 04/24/2018 [facility] CHEM PANEL Total Protein 6.1 6.4 - 8.4 04/24/2018 [facility] CHEM PANEL ALT 7 0 - 65 04/24/2018 [facility] CHEM PANEL Bili Total 0.3 0.2 - 1.3 04/24/2018 [facility] CHEM PANEL Potassium Lvl 4.8 3.5 - 5.1 04/24/2018 [facility] CHEM PANEL Glucose Lvl 77 70 - 99 04/24/2018 [facility] CHEM PANEL BUN 13 7 - 22 04/24/2018 [facility] CHEM PANEL Sodium Lvl 145 135 - 145 04/24/2018 [facility] CHEM PANEL Creatinine Lvl 0.72 0.50 - 1.40 04/24/2018 [facility] CHEM PANEL A/G Ratio 1.0 0.7 - 1.6 04/24/2018 [facility] CHEM PANEL AGAP 12.8 10.0 - 20.0 04/24/2018 [facility] CHEM PANEL Globulin 3.0 2.7 - 4.2 04/24/2018 [facility] CHEM PANEL B/C Ratio 18 6 - 25 04/24/2018 [facility] CHEM PANEL Procalcitonin Lvl <0.05 ng/mL 0.00 - 0.10 04/24/2018 [facility] HEMATOLOGY Hct 38.8 36.0 - 48.0 04/24/2018 [facility] HEMATOLOGY MCHC 32.2 32.0 - 36.0 04/24/2018 [facility] MCH 29.7 27.0 - 31.0 04/24/2018 [facility] HEMATOLOGY MCV 92.2 80.0 - 98.0 04/24/2018 [facility] HEMATOLOGY Hgb 12.5 12.0 - 16.0 04/24/2018 [facility] HEMATOLOGY Platelet 211 133 - 450 04/24/2018 [facility] HEMATOLOGY MPV 8.8 7.4 - 10.4 04/24/2018 [facility] HEMATOLOGY RDW 16.8 11.5 - 14.5 04/24/2018 [facility] HEMATOLOGY WBC 5.5 3.7 - 10.4 04/24/2018 [facility] HEMATOLOGY RBC 4.21 4.20 - 5.40 04/24/2018 [facility] HEMATOLOGY Eosinophils 3.2 0.0 - 4.0 04/24/2018 [facility] HEMATOLOGY Monocytes 11.3 2.0 - 12.0 04/24/2018 [facility] HEMATOLOGY Lymphocytes 27.7 20.0 - 40.0 04/24/2018 [facility] HEMATOLOGY Basophils 0.6 0.0 - 1.0 04/24/2018 [facility] HEMATOLOGY Segs-Bands # 3.2 1.5 - 8.1 04/24/2018 [facility] HEMATOLOGY Eosinophils # 0.2 0.0 - 0.5 04/24/2018 [facility] HEMATOLOGY Monocytes # 0.6 0.0 - 0.8 04/24/2018 [facility] HEMATOLOGY Lymphocytes # 1.5 1.0 - 5.5 04/24/2018 [facility] HEMATOLOGY Segs 57.2 45.0 - 75.0 04/24/2018 [facility] CHEM PANEL Lactic Acid Lvl 1.0 0.5 - 2.2 04/23/2018 [facility] URINE AND STOOL UA Urobilinogen <=1.0 mg/dL 0.1 - 1.0 04/23/2018 [facility] URINE AND STOOL UA Leuk Est Large *ABN* (04/22/18 8:07 PM) Negative 04/23/2018 [facility] URINE AND STOOL UA Sq Epi Occasional /LPF Few /LPF 04/23/2018 [facility] URINE AND STOOL UA WBC 44 0 - 5 04/23/2018 [facility] URINE AND STOOL UA RBC 6 0 - 2 04/23/2018 [facility] URINE AND STOOL UA Bacteria Occasional /HPF None Seen /HPF 04/23/2018 [facility] URINE AND STOOL UA Mucus Few /LPF None Seen /LPF 04/23/2018 [facility] URINE AND STOOL UA Blood Moderate *ABN* (04/22/18 8:07 PM) Negative 04/23/2018 [facility] URINE AND STOOL UA Glucose Negative mg/dL Negative mg/dL 04/23/2018 [facility] URINE AND STOOL UA Ketones Negative mg/dL Negative mg/dL 04/23/2018 [facility] URINE AND STOOL UA Bili Negative *NA* (04/22/18 8:07 PM) Negative 04/23/2018 [facility] URINE AND STOOL UA Nitrite Positive *ABN* (04/22/18 8:07 PM) Negative 04/23/2018 [facility] URINE AND STOOL UA pH 5.0 5.0 - 8.0 04/23/2018 [facility] URINE AND STOOL UA Spec Grav 1.016 <=1.030 04/23/2018 [facility] URINE AND STOOL UA Turbidity Clear (04/22/18 8:07 PM) Clear 04/23/2018 [facility] URINE AND STOOL UA Color Yellow *NA* (04/22/18 8:07 PM) Yellow 04/23/2018 [facility] URINE AND STOOL UA Protein Negative mg/dL Negative mg/dL 04/23/2018 [facility] CARDIAC ENZYMES Troponin-I <0.02 0.00 - 0.40 04/23/2018 [facility] URINE AND STOOL UA Urobilinogen <=1.0 mg/dL 0.1 - 1.0 04/13/2018 [facility] URINE AND STOOL UA Mucus Few /LPF None Seen /LPF 04/13/2018 [facility] URINE AND STOOL UA WBC 4 0 - 5 04/13/2018 [facility] URINE AND STOOL UA Sq Epi Occasional /LPF Few /LPF 04/13/2018 [facility] URINE AND STOOL UA RBC 6 0 - 2 04/13/2018 [facility] URINE AND STOOL UA Bacteria Occasional /HPF None Seen /HPF 04/13/2018 [facility] URINE AND STOOL UA pH 6.0 5.0 - 8.0 04/13/2018 [facility] URINE AND STOOL UA Spec Grav 1.014 <=1.030 04/13/2018 [facility] URINE AND STOOL UA Blood Moderate *ABN* (04/13/18 2:03 PM) Negative 04/13/2018 [facility] URINE AND STOOL UA Nitrite Negative (04/13/18 2:03 PM) Negative 04/13/2018 [facility] URINE AND STOOL UA Leuk Est Small *ABN* (04/13/18 2:03 PM) Negative 04/13/2018 [facility] URINE AND STOOL UA Color Yellow *NA* (04/13/18 2:03 PM) Yellow 04/13/2018 [facility] URINE AND STOOL UA Turbidity Clear (04/13/18 2:03 PM) Clear 04/13/2018 [facility] URINE AND STOOL UA Glucose Negative mg/dL Negative mg/dL 04/13/2018 [facility] URINE AND STOOL UA Protein Negative mg/dL Negative mg/dL 04/13/2018 [facility] URINE AND STOOL UA Bili Negative *NA* (04/13/18 2:03 PM) Negative 04/13/2018 [facility] URINE AND STOOL UA Ketones Negative mg/dL Negative mg/dL 04/13/2018 [facility] ELECTROLYTES AGAP 10.6 10.0 - 20.0 03/11/2018 [facility] ELECTROLYTES eGFR 85 03/11/2018 Result Comment: [...] should be multiplied by the estimated BMI. [facility] ELECTROLYTES BUN 14 7 - 22 03/11/2018 [facility] ELECTROLYTES CO2 26 24 - 32 03/11/2018 [facility] ELECTROLYTES Calcium Lvl 7.9 8.5 - 10.5 03/11/2018 [facility] ELECTROLYTES Potassium Lvl 3.6 3.5 - 5.1 03/11/2018 [facility] ELECTROLYTES Sodium Lvl 144 135 - 145 03/11/2018 [facility] ELECTROLYTES Chloride Lvl 111 95 - 109 03/11/2018 [facility] ELECTROLYTES Creatinine Lvl 0.56 0.50 - 1.40 03/11/2018 [facility] ELECTROLYTES Glucose Lvl 83 70 - 99 03/11/2018 [facility] HEMATOLOGY MPV 7.8 7.4 - 10.4 03/11/2018 [facility] HEMATOLOGY WBC 5.9 3.7 - 10.4 03/11/2018 [facility] HEMATOLOGY Platelet 214 133 - 450 03/11/2018 [facility] RDW 16.1 11.5 - 14.5 03/11/2018 [facility] MCHC 33.0 32.0 - 36.0 03/11/2018 [facility] HEMATOLOGY Hct 26.7 36.0 - 48.0 03/11/2018 [facility] RBC 3.07 4.20 - 5.40 03/11/2018 [facility] MCV 86.9 80.0 - 98.0 03/11/2018 [facility] HEMATOLOGY Hgb 8.8 12.0 - 16.0 03/11/2018 [facility] MCH 28.7 27.0 - 31.0 03/11/2018 [facility] CHEM PANEL eGFR 86 03/10/2018 Result [...] should be multiplied by the estimated BMI. [facility] CHEM PANEL Chloride Lvl 109 95 - 109 03/10/2018 [facility] CHEM PANEL CO2 28 24 - 32 03/10/2018 [facility] CHEM PANEL Calcium Lvl 7.9 8.5 - 10.5 03/10/2018 [facility] CHEM PANEL Sodium Lvl 143 135 - 145 03/10/2018 [facility] CHEM PANEL Creatinine Lvl 0.55 0.50 - 1.40 03/10/2018 [facility] CHEM PANEL Potassium Lvl 3.3 3.5 - 5.1 03/10/2018 [facility] CHEM PANEL BUN 13 7 - 22 03/10/2018 [facility] CHEM PANEL Glucose Lvl 88 70 - 99 03/10/2018 [facility] CHEM PANEL AGAP 9.3 10.0 - 20.0 03/10/2018 [facility] HEMATOLOGY RBC 3.02 4.20 - 5.40 03/10/2018 [facility] HEMATOLOGY Hgb 8.8 12.0 - 16.0 03/10/2018 [facility] HEMATOLOGY WBC 9.2 3.7 - 10.4 03/10/2018 [facility] HEMATOLOGY MPV 7.9 7.4 - 10.4 03/10/2018 [facility] HEMATOLOGY RDW 16.2 11.5 - 14.5 03/10/2018 [facility] HEMATOLOGY Platelet 187 133 - 450 03/10/2018 [facility] HEMATOLOGY Hct 26.0 36.0 - 48.0 03/10/2018 [facility] HEMATOLOGY MCHC 33.7 32.0 - 36.0 03/10/2018 [facility] HEMATOLOGY MCH 29.1 27.0 - 31.0 03/10/2018 [facility] HEMATOLOGY MCV 86.3 80.0 - 98.0 03/10/2018 [facility] ELECTROLYTES AGAP 11.7 10.0 - 20.0 03/09/2018 [facility] ELECTROLYTES eGFR 84 03/09/2018 Result Comment: [...] should be multiplied by the estimated BMI. [facility] ELECTROLYTES CO2 27 24 - 32 03/09/2018 [facility] ELECTROLYTES Calcium Lvl 8.1 8.5 - 10.5 03/09/2018 [facility] ELECTROLYTES Glucose Lvl 96 70 - 99 03/09/2018 [facility] ELECTROLYTES Chloride Lvl 107 95 - 109 03/09/2018 [facility] ELECTROLYTES Potassium Lvl 3.7 3.5 - 5.1 03/09/2018 [facility] ELECTROLYTES BUN 9 7 - 22 03/09/2018 [facility] ELECTROLYTES Sodium Lvl 142 135 - 145 03/09/2018 [facility] ELECTROLYTES Creatinine Lvl 0.59 0.50 - 1.40 03/09/2018 [facility] MPV 8.5 7.4 - 10.4 03/09/2018 [facility] Platelet 150 133 - 450 03/09/2018 [facility] Hgb 9.2 12.0 - 16.0 03/09/2018 [facility] Hct 27.1 36.0 - 48.0 03/09/2018 [facility] MCV 86.6 80.0 - 98.0 03/09/2018 [facility] MCH 29.5 27.0 - 31.0 03/09/2018 [facility] MCHC 34.0 32.0 - 36.0 03/09/2018 [facility] RDW 16.3 11.5 - 14.5 03/09/2018 [facility] WBC 7.9 3.7 - 10.4 03/09/2018 [facility] RBC 3.12 4.20 - 5.40 03/09/2018 [facility] BLOOD BANK RESULTS RBC product Product available 1 (03/07/18 6:22 AM) 03/07/2018 Result Comment: 03/07/2018 07:20 ADDIENINO
called to shraddha 03/07/2018 07:20 [facility] HEMATOLOGY Monocytes # 1.5 0.0 - 0.8 03/06/2018 [facility] HEMATOLOGY Monocytes 12.1 2.0 - 12.0 03/06/2018 [facility] HEMATOLOGY Lymphocytes # 1.1 1.0 - 5.5 03/06/2018 [facility] HEMATOLOGY Segs-Bands # 10.0 1.5 - 8.1 03/06/2018 [facility] HEMATOLOGY Basophils 0.3 0.0 - 1.0 03/06/2018 [facility] HEMATOLOGY Lymphocytes 8.8 20.0 - 40.0 03/06/2018 [facility] HEMATOLOGY Segs 78.8 45.0 - 75.0 03/06/2018 [facility] BLOOD BANK RESULTS Antibody Scrn Negative (03/05/18 8:37 AM) 03/05/2018 [facility] BLOOD BANK RESULTS ABO/Rh B POS 03/05/2018 [facility] CHEM PANEL Total Protein 6.3 6.4 - 8.4 03/05/2018 [facility] CHEM PANEL Albumin Lvl 3.0 3.5 - 5.0 03/05/2018 [facility] CHEM PANEL Alk Phos 57 39 - 136 03/05/2018 [facility] CHEM PANEL Bili Total 0.3 0.2 - 1.3 03/05/2018 [facility] CHEM PANEL ALT 12 0 - 65 03/05/2018 [facility] CHEM PANEL AST 14 0 - 37 03/05/2018 [facility] CHEM PANEL B/C Ratio 17 6 - 25 03/05/2018 [facility] CHEM PANEL A/G Ratio 0.9 0.7 - 1.6 03/05/2018 [facility] CHEM PANEL Globulin 3.3 2.7 - 4.2 03/05/2018 [facility] CHEM PANEL Magnesium Lvl 2.2 1.8 - 2.4 03/05/2018 [facility] HEMATOLOGY Basophils 0.3 0.0 - 1.0 03/05/2018 [facility] HEMATOLOGY Eosinophils 0.1 0.0 - 4.0 03/05/2018 [facility] HEMATOLOGY Segs-Bands # 8.2 1.5 - 8.1 03/05/2018 [facility] HEMATOLOGY Lymphocytes # 1.0 1.0 - 5.5 03/05/2018 [facility] HEMATOLOGY Monocytes # 0.7 0.0 - 0.8 03/05/2018 [facility] HEMATOLOGY Segs 82.3 45.0 - 75.0 03/05/2018 [facility] HEMATOLOGY Monocytes 7.3 2.0 - 12.0 03/05/2018 [facility] Lymphocytes 10.0 20.0 - 40.0 03/05/2018 [facility] PT 13.1 12.0 - 14.7 03/05/2018 [facility] HEMATOLOGY INR 0.99 0.85 - 1.17 03/05/2018 [facility] HEMATOLOGY PTT 28.3 22.9 - 35.8 03/05/2018 [facility] HEMATOLOGY Eosinophils # 0.1 0.0 - 0.5 03/05/2018 [facility] Monocytes # 0.7 0.0 - 0.8 03/05/2018 [facility] Segs-Bands # 7.9 1.5 - 8.1 03/05/2018 [facility] Basophils 0.5 0.0 - 1.0 03/05/2018 [facility] Lymphocytes # 1.1 1.0 - 5.5 03/05/2018 [facility] Lymphocytes 11.2 20.0 - 40.0 03/05/2018 [facility] Segs 80.1 45.0 - 75.0 03/05/2018 [facility] Eosinophils 0.7 0.0 - 4.0 03/05/2018 [facility] Monocytes 7.5 2.0 - 12.0 03/05/2018 [facility] Pathology Reports No Data Provided for [...] canal stenosis or neural foraminal narrowing. SL: [id number] 04/27/2018 [facility] Spine Lumbar Comp w Bend views [...] L3, L4, and L5. SL: [id number] 04/24/2018 [facility] Retroperitoneal Complete US Patient Name: NICK CURRIE. : 1930; Age: 87 years y/o; Female. MR: [id number]. Ordering Physician: Shaun Wilkerson MD. PROCEDURE: RENAL [...] Otherwise, kidneys are unremarkable. SL: [id number] 04/23/2018 [facility] Pelvis AP DX Clinical Indication: - [...] hip. No acute abnormalities are identified. SL: [id number] 04/13/2018 [facility] Chest 1view DX PROCEDURE: Chest, AP [...] atelectasis within the right lower chest. SL: [id number] 03/09/2018 [facility] Hip 2/3 views uni w pelvis [...] again evident. There is generalized osteopenia. SL: [id number] 03/06/2018 [facility] Femur series DX Study: Pelvis and [...] again evident. There is generalized osteopenia. SL: [id number] 03/06/2018 [facility] 2/3 views uni w pelvis DX Patient Name: NICK CURRIE : 1930; Age: 87 years y/o Female MR: [id number] * LEFT HIP, intraoperative, History: Comminuted intra-articular [...] comminuted lesser trochanteric fragments. SL: [id number] 03/05/2018 [facility] 2/3 views uni w pelvis DX LEFT [...] Intertrochanteric fracture of the left femur. SL: [id number] 03/04/2018 [facility] 1view DX Clinical Indication: Chest pain after fall Comparison: None FINDINGS: The frontal chest radiograph shows normal lung volumes without interstitial or airspace opacities, pleural effusions or pneumothorax. The cardiomediastinal contours are normal for the age of the patient with aortic tortuosity. There are degenerative changes in the spine and shoulders. IMPRESSION: No chest radiographic evidence of acute cardiopulmonary disease. SL: [id number] 03/04/2018 [facility] Femur series DX Patient Name: NICK CURRIE : 1930; Age: 87 years y/o Female MR: [id number] Study: 4 view examination of the left femur dated 03/04/2018. Clinical Indication: Left thigh pain sp fall; Comparison: None Osteopenia. There is a comminuted fracture of the left basicervical and intertrochanteric femoral region which has apex lateral angulation at the fracture site and medial rotation of the left femoral head relative to the left acetabulum. No other fracture or dislocation. SL: [id number] 03/04/2018 [facility] 2 views DX EXAMINATION: Chest, 2 [...] Hg) 117 05/14/2018 SN[facility]: [facility] Diastolic (mm Hg) 95 05/14/2018 [facility] Heart Rate 71 {beats}/min 05/14/2018 SNF: [facility] Systolic (mm Hg) 120 05/13/2018 SN[facility]: [facility] Diastolic (mm Hg) 63 05/13/2018 [facility]: [facility] Heart Rate 66 {beats}/min 05/13/2018 [facility]: [facility] Systolic (mm Hg) 129 05/12/2018 [facility]: [facility] Diastolic (mm Hg) 60 05/12/2018 [facility] Heart Rate 61 {beats}/min 05/12/2018 [facility]: [facility] Systolic (mm Hg) 140 05/12/2018 [facility] Diastolic (mm Hg) 98 05/12/2018 [facility] Heart Rate 79 {beats}/min 05/12/2018 [facility] Systolic (mm Hg) 154 05/11/2018 [facility] Diastolic (mm Hg) 71 05/11/2018 [facility] Heart Rate 60 {beats}/min 05/11/2018 [facility] Systolic (mm Hg) 131 05/11/2018 [facility] Diastolic (mm Hg) 70 05/11/2018 [facility] Heart Rate 67 {beats}/min 05/11/2018 [facility] Systolic (mm Hg) 116 05/10/2018 [facility] Diastolic (mm Hg) 63 05/10/2018 [facility] Heart Rate 60 {beats}/min 05/10/2018 [facility]: [facility] Systolic (mm Hg) 118 05/09/2018 [facility]: [facility] Diastolic (mm Hg) 96 05/09/2018 [facility] Heart Rate 62 {beats}/min 05/09/2018 [facility] Systolic (mm Hg) 150 05/09/2018 [facility] Diastolic (mm Hg) 66 05/09/2018 [facility] Heart Rate 66 {beats}/min 05/09/2018 [facility] Systolic (mm Hg) 128 05/08/2018 [facility] Diastolic (mm Hg) 62 05/08/2018 [facility] Heart Rate 69 {beats}/min 05/08/2018 [facility] Systolic (mm Hg) 144 05/07/2018 [facility] Diastolic (mm Hg) 78 05/07/2018 [facility] Heart Rate 64 {beats}/min 05/07/2018 [facility] Height 62 05/06/2018 [facility] Systolic (mm Hg) 124 05/06/2018 [facility] Diastolic (mm Hg) 68 05/06/2018 [facility] Heart Rate 65 {beats}/min 05/06/2018 [facility] Systolic (mm Hg) 117 05/06/2018 [facility] Diastolic (mm Hg) 62 05/06/2018 [facility] Heart Rate 77 {beats}/min 05/06/2018 [facility] Systolic (mm Hg) 131 05/05/2018 [facility] Diastolic (mm Hg) 60 05/05/2018 [facility] Heart Rate 61 {beats}/min 05/05/2018 [facility] Systolic (mm Hg) 134 05/05/2018 [facility] Diastolic (mm Hg) 62 05/05/2018 [facility] Heart Rate 88 {beats}/min 05/05/2018 [facility] Systolic (mm Hg) 129 05/04/2018 [facility] Diastolic (mm Hg) 65 05/04/2018 [facility] Heart Rate 60 {beats}/min 05/04/2018 [facility] Systolic (mm Hg) 120 05/04/2018 [facility] Diastolic (mm Hg) 63 05/04/2018 [facility] Heart Rate 67 {beats}/min 05/04/2018 [facility] Systolic (mm Hg) 131 05/03/2018 [facility] Diastolic (mm Hg) 64 05/03/2018 [facility] Heart Rate 61 {beats}/min 05/03/2018 [facility] Systolic (mm Hg) 119 05/03/2018 [facility] Diastolic (mm Hg) 63 05/03/2018 [facility] Heart Rate 72 {beats}/min 05/03/2018 [facility] Systolic (mm Hg) 138 05/02/2018 [facility] Diastolic (mm Hg) 76 05/02/2018 [facility] Heart Rate 80 {beats}/min 05/02/2018 [facility] Systolic (mm Hg) 140 05/01/2018 [facility] Diastolic (mm Hg) 67 05/01/2018 [facility] Heart Rate 82 {beats}/min 05/01/2018 [facility] Systolic (mm Hg) 133 05/01/2018 [facility] Diastolic (mm Hg) 65 05/01/2018 [facility] Heart Rate 83 {beats}/min 05/01/2018 [facility] Systolic (mm Hg) 136 04/30/2018 [facility] Diastolic (mm Hg) 67 04/30/2018 [facility] Heart Rate 78 {beats}/min 04/30/2018 [facility] Systolic (mm Hg) 147 04/30/2018 [facility] Diastolic (mm Hg) 60 04/30/2018 [facility] Heart Rate 73 {beats}/min 04/30/2018 [facility] Systolic (mm Hg) 149 04/29/2018 [facility] Diastolic (mm Hg) 70 04/29/2018 [facility] Heart Rate 66 {beats}/min 04/29/2018 [facility] Systolic (mm Hg) 117 04/29/2018 [facility] Diastolic (mm Hg) 64 04/29/2018 [facility] Heart Rate 71 {beats}/min 04/29/2018 [facility] Systolic (mm Hg) 118 04/29/2018 [facility] Diastolic (mm Hg) 70 04/29/2018 [facility] Heart Rate 62 {beats}/min 04/29/2018 [facility] Weight 122 04/28/2018 [facility] Systolic (mm Hg) 127 04/28/2018 [facility] Diastolic (mm Hg) 63 04/28/2018 [facility] Heart Rate 78 {beats}/min 04/28/2018 [facility] Systolic (mm Hg) 148 04/28/2018 [facility] Diastolic (mm Hg) 68 04/28/2018 [facility] Temperature Oral (F) 97.8 F 04/28/2018 [facility]: [facility] Heart Rate 70 {beats}/min 04/28/2018 [facility] Heart Rate 85 04/28/2018 [facility] [...] 04/27/2018 [facility] Systolic (mm Hg) 129 04/27/2018 [facility] Diastolic (mm Hg) 76 04/27/2018 [facility] Respitory Rate 18 04/27/2018 [facility] BMI Calculated 24.01 04/23/2018 [facility] Weight 59.545 04/23/2018 [facility] Height 157.48 cm 04/23/2018 [facility] Height 152.4 cm 04/22/2018 [facility] BMI Calculated 24.46 04/22/2018 [facility] Weight 56.818 04/22/2018 [facility] Respitory Rate 18 04/13/2018 [facility] Heart Rate 64 04/13/2018 [facility] Systolic (mm Hg) 139 04/13/2018 [facility] Diastolic (mm Hg) 58 04/13/2018 [facility] Temperature Oral (F) 98.4 F 04/13/2018 [facility] Systolic (mm Hg) 153 04/13/2018 [facility] Diastolic (mm Hg) 63 04/13/2018 [facility] Systolic (mm Hg) 166 04/13/2018 [facility] Diastolic (mm Hg) 52 04/13/2018 [facility] Heart Rate 62 04/13/2018 [facility] Temperature Oral (F) 98.1 F 04/13/2018 [facility] Respitory Rate 16 04/13/2018 [facility] Systolic (mm Hg) 132 03/31/2018 SN[facility]: [facility] Diastolic (mm Hg) 69 03/31/2018 [facility] Heart Rate 73 {beats}/min 03/31/2018 [facility] Systolic (mm Hg) 131 03/30/2018 [facility] Diastolic (mm Hg) 66 03/30/2018 [facility] Heart Rate 68 {beats}/min 03/30/2018 [facility] Systolic (mm Hg) 119 03/30/2018 [facility] Diastolic (mm Hg) 57 03/30/2018 [facility] Heart Rate 69 {beats}/min 03/30/2018 [facility]: [facility] Systolic (mm Hg) 128 03/29/2018 [facility]: [facility] Diastolic (mm Hg) 67 03/29/2018 [facility] Heart Rate 72 {beats}/min 03/29/2018 [facility]: [facility] Systolic (mm Hg) 131 03/29/2018 [facility] Diastolic (mm Hg) 64 03/29/2018 [facility] Heart Rate 66 {beats}/min 03/29/2018 [facility]: [facility] Systolic (mm Hg) 121 03/28/2018 [facility]: [facility] Diastolic (mm Hg) 60 03/28/2018 [facility] Heart Rate 67 {beats}/min 03/28/2018 [facility]: [facility] Systolic (mm Hg) 112 03/28/2018 [facility] Diastolic (mm Hg) 60 03/28/2018 [facility] Heart Rate 74 {beats}/min 03/28/2018 [facility]: [facility] Systolic (mm Hg) 135 03/26/2018 [facility]: [facility] Diastolic (mm Hg) 64 03/26/2018 [facility]: [facility] Heart Rate 70 {beats}/min 03/26/2018 [facility]: [facility] Systolic (mm Hg) 110 03/26/2018 [facility]: [facility] Diastolic (mm Hg) 58 03/26/2018 [facility] Heart Rate 71 {beats}/min 03/26/2018 [facility] Systolic (mm Hg) 112 03/25/2018 [facility]: [facility] Diastolic (mm Hg) 60 03/25/2018 [facility] Heart Rate 75 {beats}/min 03/25/2018 [facility] Systolic (mm Hg) 126 03/25/2018 [facility] Diastolic (mm Hg) 81 03/25/2018 [facility] Heart Rate 76 {beats}/min 03/25/2018 [facility] Systolic (mm Hg) 125 03/24/2018 [facility] Diastolic (mm Hg) 60 03/24/2018 [facility]: [facility] Heart Rate 72 {beats}/min 03/24/2018 [facility]: [facility] Systolic (mm Hg) 136 03/24/2018 [facility]: [facility] Diastolic (mm Hg) 61 03/24/2018 [facility] Heart Rate 83 {beats}/min 03/24/2018 [facility]: [facility] Systolic (mm Hg) 115 03/23/2018 [facility]: [facility] Diastolic (mm Hg) 64 03/23/2018 [facility]: [facility] Heart Rate 76 {beats}/min 03/23/2018 [facility]: [facility] Systolic (mm Hg) 113 03/23/2018 [facility]: [facility] Diastolic (mm Hg) 57 03/23/2018 [facility] Heart Rate 74 {beats}/min 03/23/2018 [facility]: [facility] Systolic (mm Hg) 110 03/22/2018 [facility] Diastolic (mm Hg) 60 03/22/2018 [facility] Heart Rate 73 {beats}/min 03/22/2018 [facility]: [facility] Systolic (mm Hg) 124 03/22/2018 [facility] Diastolic (mm Hg) 60 03/22/2018 [facility]: [facility] Heart Rate 81 {beats}/min 03/22/2018 [facility]: [facility] Systolic (mm Hg) 126 03/21/2018 [facility]: [facility] Diastolic (mm Hg) 66 03/21/2018 [facility] Heart Rate 78 {beats}/min 03/21/2018 [facility]: [facility] Systolic (mm Hg) 120 03/19/2018 [facility]: [facility] Diastolic (mm Hg) 60 03/19/2018 [facility] Heart Rate 70 {beats}/min 03/19/2018 [facility]: [facility] Systolic (mm Hg) 129 03/19/2018 [facility]: [facility] Diastolic (mm Hg) 66 03/19/2018 [facility] Heart Rate 73 {beats}/min 03/19/2018 [facility]: [facility] Systolic (mm Hg) 133 03/18/2018 [facility]: [facility] Diastolic (mm Hg) 75 03/18/2018 [facility]: [facility] Heart Rate 76 {beats}/min 03/18/2018 [facility]: [facility] Systolic (mm Hg) 112 03/18/2018 [facility] Diastolic (mm Hg) 67 03/18/2018 [facility]: [facility] Heart Rate 78 {beats}/min 03/18/2018 [facility]: [facility] Systolic (mm Hg) 125 03/17/2018 [facility]: [facility] Diastolic (mm Hg) 68 03/17/2018 [facility]: [facility] Heart Rate 82 {beats}/min 03/17/2018 [facility]: [facility] Systolic (mm Hg) 116 03/17/2018 [facility] Diastolic (mm Hg) 60 03/17/2018 [facility]: [facility] Heart Rate 96 {beats}/min 03/17/2018 [facility]: [facility] Systolic (mm Hg) 123 03/16/2018 [facility] Diastolic (mm Hg) 60 03/16/2018 [facility] Heart Rate 80 {beats}/min 03/16/2018 [facility]: [facility] Systolic (mm Hg) 131 03/16/2018 [facility] Diastolic (mm Hg) 61 03/16/2018 [facility]: [facility] Heart Rate 84 {beats}/min 03/16/2018 [facility]: [facility] Weight 128 03/16/2018 [facility] Height 62 03/16/2018 [facility]: [facility] Systolic (mm Hg) 125 03/15/2018 [facility]: [facility] Diastolic (mm Hg) 68 03/15/2018 [facility] Heart Rate 75 {beats}/min 03/15/2018 [facility]: [facility] Systolic (mm Hg) 114 03/15/2018 [facility] Diastolic (mm Hg) 84 03/15/2018 [facility] Heart Rate 86 {beats}/min 03/15/2018 [facility]: [facility] Systolic (mm Hg) 133 03/14/2018 [facility]: [facility] Diastolic (mm Hg) 71 03/14/2018 [facility]: [facility] Heart Rate 80 {beats}/min 03/14/2018 [facility] Systolic (mm Hg) 129 03/14/2018 [facility] Diastolic (mm Hg) 60 03/14/2018 [facility] Heart Rate 84 {beats}/min 03/14/2018 [facility]: [facility] Systolic (mm Hg) 130 03/14/2018 [facility] Diastolic (mm Hg) 68 03/14/2018 [facility] Heart Rate 78 {beats}/min 03/14/2018 [facility]: [facility] Systolic (mm Hg) 146 03/13/2018 [facility] Diastolic (mm Hg) 58 03/13/2018 [facility]: [facility] Heart Rate 81 {beats}/min 03/13/2018 [facility]: [facility] Systolic (mm Hg) 131 03/12/2018 [facility] Diastolic (mm Hg) 72 03/12/2018 [facility] Heart Rate 68 {beats}/min 03/12/2018 [facility]: [facility] Systolic (mm Hg) 135 03/12/2018 [facility] Diastolic (mm Hg) 66 03/12/2018 [facility] Heart Rate 75 {beats}/min 03/12/2018 [facility]: [facility] Systolic (mm Hg) 132 03/12/2018 [facility] Diastolic (mm Hg) 78 03/12/2018 [facility]: [facility] Temperature Oral (F) 97.6 F 03/12/2018 [facility]: [facility] Respitory Rate 18 03/12/2018 [facility] Heart Rate 76 {beats}/min 03/12/2018 [facility] Systolic (mm Hg) 128 03/11/2018 [facility] Diastolic (mm Hg) 60 03/11/2018 [facility]: [facility] Heart Rate 84 {beats}/min 03/11/2018 [facility]: [facility] Heart Rate 78 03/11/2018 [facility] Respitory Rate 16 03/11/2018 [facility] Systolic (mm Hg) 109 03/11/2018 [facility] Diastolic (mm Hg) 64 03/11/2018 [facility] Temperature Oral (F) 98.4 F 03/11/2018 [facility] Systolic (mm Hg) 113 03/11/2018 [facility] Diastolic (mm Hg) 64 03/11/2018 [facility] Respitory Rate 16 03/11/2018 [facility] Heart Rate 74 03/11/2018 [facility] Temperature Oral (F) 97.9 F 03/11/2018 [facility] Systolic (mm Hg) 109 03/11/2018 [facility] Diastolic (mm Hg) 65 03/11/2018 [facility] Respitory Rate 16 03/11/2018 [facility] Heart Rate 76 03/11/2018 [facility] Temperature Oral (F) 98.0 F 03/11/2018 [facility] Height 62 03/09/2018 SN[facility]: [facility] Weight 128 03/09/2018 SNF: [facility] Weight 60.909 03/05/2018 [facility] BMI Calculated 24.56 03/05/2018 [facility] Height 157.48 cm 03/05/2018 [facility] Encounters Location Location Details Encounter Type Encounter Number Reason For Visit Attending Provider ADM Date DC Date Status Source [facility] [id number] Afshin Marie 11/28/2015 11/29/2015 [facility] [id number] Afshin Marie 04/21/2016 04/22/2016 [facility] [id number] Afshin Marie 08/04/2017 08/05/2017 [facility] Inpatient [id number] Yoni Ann 03/05/2018 03/11/2018 [facility] Emergency [id number] John Sheldonwuma 04/13/2018 04/13/2018 [facility] Inpatient [id number] Shaun Moyaarya 04/22/2018 04/28/2018 [facility] Procedures Procedure Code Date Perfomer Comments Source ORIF - Open reduction and internal fixation of fracture [id number] 03/05/2018 [facility] Assessment and Plan Assessment and Plan Date Source Extracted from:Title: Clinical Document Author: Augustina Calero NP Date: 04/27/18 [facility] PATIENT NAME: NICK CURRIE ATTENDING PHYSICIAN: ROYCE FATIMA CONSULTING PHYSICIAN: Augustina Gorman [employer] DATE OF CONSULT: 04/27/2018 REASON FOR [...] CT lumbar 3. F/u in clinic at [phone] in 1-2 weeks. Augustina Calero [employer] MANAGER 04/28/2018 [place] Extracted from:Title: Discharge Summary * Author: Yoni Ann MD Date: 03/11/18 Discharge Information Disposition: residential facility Condition: Stable Medications: See med reconciliation [...] risk reduction. Continue rehabilitation therapies. Continue Lovenox. -L[place]arne out POD 14 2. Acute postoperative left [...] We are recommending a referral to the halfway center with 1 to 2 hours of therapy per day and 24-hour nursing care. Case mgmt has contacted family. -Plan for SNF today. 03/11/2018 [facility] Plan of Care No Data Provided for This Section Social History Social History Date Source Smoking StatusStart DateEnd Date Unknown if ever smoked 05/14/2018 16:38:13 05/09/2018 SNF: [facility] Social History TypeResponse Alcohol Never Smoking Status Never smoker; Exposure to Tobacco Smoke None; Cigarette Smoking Last 365 Days No; Reg Smoking Cessation Counseling No entered on: 04/23/18 04/23/2018 [facility] No data available for this section 08/05/2017 RADHA Santiago Family History No Data Provided for This Section Advance Directives Order Name Results Value Date Source Advance Directives Advance Directives Cardiopulmonary Resuscitation 05/14/2018 SNF: [facility] Advance Directives Advance Directives Cardiopulmonary Resuscitation 03/31/2018 [facility] [place] Functional Status No Data Provided for This Section
--- OUTSIDE RECORDS SUMMARY | 2019-06-09 11:47 | XMS REPORT | Continuity of Care Document ---
Author Author [employer] Address Unknown Phone Unavailable Care Team Providers Care Registration Manager Name Role Phone [facility] [employer] Unavailable Unavailable Problems Problem Status Onset Date Classification Date Reported Comments Source M62.81 MUSCLE WEAKNESS 04/28/2018 Diagnosis 05/14/2018 SNF: [facility] [place] [facility] Walking disability 04/27/2018 Diagnosis 05/14/2018 SNF: [facility] [place] [facility] S22.089S UNSPECIFIED FRACTURE OF T11-T12 VERTEBRA, SEQUELA 04/27/2018 Diagnosis 05/14/2018 SNF: [facility] [place] [facility] G89.29 OTHER CHRONIC PAIN 04/27/2018 Diagnosis 05/14/2018 SNF: [facility] [place] [facility] Z91.81 HISTORY OF FALLING 04/27/2018 Diagnosis 05/14/2018 SNF: [facility] [place] [facility] R53.1 WEAKNESS 04/27/2018 Diagnosis 05/14/2018 SNF: [facility] [place] [facility] ACUTE UTI,PHYSICAL DECONDITIONING,WEAKNE Active 04/22/2018 [facility] Acute pain of right hip 04/13/2018 04/16/2018 [facility] BACK PAIN Active 04/13/2018 [facility] S72.92XS UNSPECIFIED FRACTURE OF LEFT FEMUR, SEQUELA 03/11/2018 Diagnosis 05/14/2018 SNF: [facility] [place] [facility] W19.XXXS UNSPECIFIED FALL, SEQUELA 03/11/2018 Diagnosis 05/14/2018 SNF: [facility] [place] [facility] I10 ESSENTIAL HYPERTENSION 03/11/2018 Diagnosis 05/14/2018 SNF: [facility] [place] [facility] 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 03/11/2018 Diagnosis 05/14/2018 SNF: [facility] [place] [facility] 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 03/11/2018 Diagnosis 05/14/2018 SNF: [facility] T[facility] FX HIP Active 03/04/2018 [facility] INTRTROCHANTERIC FRACTURE OF FEMUR Active 03/04/2018 [facility] R91.8 - OTHER NONSPECIFIC ABNORMAL FIN Active 04/25/2016 RADHA Santiago D64.9 - "ANEMIA, UNSPECIFIED" Active 04/21/2016 RADHA Santiago DISPLACED INTERTROCHANTERIC FRACTURE OF Active [facility] URINARY TRACT INFECTION, SITE NOT SPECIF Active [facility] OTHER MALAISE Active [facility] WEAKNESS Active [facility] Medications Medication Details Route Status Patient Instructions Ordering Provider Order Date Source Ibuprofen Tablet 800 MG Give 1 tablet by mouth every 8 hours as needed for Pain Oral Active 04/29/2018 SNF: [facility] Nicolasa Tuttle [facility] Cipro Tablet 500 MG Give 1 tablet by mouth two times a day for UTI for 10 Days Oral Active 04/28/2018 SNF: [facility] Tuttle [facility] Tylenol with Codeine #3 Tablet 300-30 MG Give 1 tablet by mouth every 8 hours as needed for PAIN Oral Active 04/28/2018 SNF: [facility] Nicolasa [facility] Protonix Tablet Delayed Release 40 MG Give 1 tablet by mouth one time a day for gerd Oral Active 04/28/2018 SNF: [facility] Nicolasa Tuttle [facility] Metoprolol Tartrate Tablet Give 12.5 mg by mouth two times a day for HTN Hold for SBP less than 110, HR less than 60 Oral Active 04/28/2018 SNF: SHERRI Tuttle [facility] Lidocaine Patch 5 % Apply to hip topically one time a day for pain and remove per schedule External Active 04/28/2018 SNF: [facility] - Nicolasa Tuttle [facility] Cefdinir Capsule 300 MG Give 1 capsule by mouth two times a day for UTI for 7 Days Oral Inactive 04/28/2018 SNF: [facility] Nicolasa [facility] Cyclobenzaprine HCl Tablet 5 MG Give 1 tablet by mouth every 8 hours as needed for Spasm Oral Active 04/28/2018 SNF: [facility] cefdinir 300 MG Oral Capsule 300 mg=1 cap, PO, [id number], X 7 day, # 14 cap, 0 Refill(s), Pharmacy: [id number] Active 04/27/2018 [facility] DME Prescription See Instructions, MISC, ONCE, Use TSLO brace when upright., # 1 ea, 0 Refill(s) Active 04/27/2018 [facility] ocular lubricant solution Each Affected Eye, QID, PRN Dry Eyes, 0 Refill(s) Active 04/27/2018 [facility] Artificial Tears 1 drp, Route: Each Affected Eye, QID, Drug form: SOLN, PRN Dry Eyes, Start date: 04/27/18 13:11:00 CDT, Duration: 30 day, Stop date: 05/27/18 13:10:00 CDT Inactive 04/27/2018 [facility] Vantin 200 mg, Route: PO, Drug form: TAB, [id number], Dosing Weight 59.545, kg, Start date: 04/25/18 14:00:00 CDT, Duration: 14 day, Stop date: 05/09/18 2:00:00 CDT, ABX Indication: Urinary Tract Infection Inactive 04/25/2018 [facility] cefdinir 300 mg, 1 cap, Route: PO, Drug form: CAP, [id number], Start date: 04/25/18 14:00:00 CDT, Duration: 14 day, Stop date: 05/09/18 2:00:00 CDTNotes: (Same As: Omnicef) No Longer Active 04/25/2018 [facility] Rocephin 1 gm, Route: IVP, [id number], Dosing Weight 59.545, kg, Start date: 04/23/18 21:00:00 CDT, Duration: 7 day, Stop date: 04/29/18 21:00:00 CDT, ABX Indication: Genital Tract InfectionNotes: (Same As: Rocephin). Use with 100 mL NS and infuse over 30 min MEDICATION WASTE Product Size: 1000 mg Product Wasted: ___ mg No Longer Active 04/24/2018 [facility] Acetaminophen 325 MG / Hydrocodone Bitartrate 5 MG Oral Tablet [Delmont 5/325] 1 tab, Route: PO, Drug Form: TAB, Dosing Weight 59.545, kg, Q4H, PRN Pain Score 1-3, Start date: 04/23/18 15:42:00 CDT, Duration: 30 day, Stop date: 05/23/18 15:41:00 CDTNotes: (Same as: Delmont 325/5) Do not exceed 4gm/day of acetaminophen. No Longer Active 04/23/2018 [facility] Lovenox 40 mg, 0.4 mL, Route: SUB-Q, Drug form: INJ, [id number], Dosing Weight 59.545, kg, Start date: 04/23/18 9:00:00 CDT, Duration: 30 day, Stop date: 05/22/18 9:00:00 CDTNotes: (Same as: Lovenox) No Longer Active 04/23/2018 [facility] Protonix 40 mg, 1 tab, Route: PO, Drug form: ECTAB, Daily, Dosing Weight 59.545, kg, Start date: 04/23/18 9:00:00 CDT, Duration: 30 day, Stop date: 05/22/18 9:00:00 CDTNotes: Tablet should not be chewed or crushed. (Same as: Protonix) No Longer Active 04/23/2018 [facility] Lopressor 12.5 mg, 0.5 tab, Route: PO, Drug form: TAB, Q12H, Dosing Weight 59.545, kg, Start date: 04/23/18 9:00:00 CDT, Duration: 30 day, Stop date: 05/22/18 21:00:00 CDTNotes: (Same as: Lopressor) No Longer Active 04/23/2018 [facility] Lidocaine 0.05 MG/MG Transdermal Patch 1 patch, Route: TOP, Daily, Drug form: FILM, Start date: 04/23/18 9:00:00 CDT, Duration: 30 day, Stop date: 05/22/18 9:00:00 CDTNotes: Apply only once for up to 12 hours in a 24-hour period (12 hours on and 12 hours off). (Same as: Lidoderm) "Remove old patch before application of new patch" No Longer Active 04/23/2018 [facility] cyclobenzaprine 5 mg, 0.5 tab, Route: PO, Drug form: TAB, TID, Dosing Weight 59.545, kg, PRN Spasm, Start date: 04/23/18 4:27:00 CDT, Duration: 30 day, Stop date: 05/23/18 4:26:00 CDTNotes: (Same As: Flexeril) No Longer Active 04/23/2018 [facility] Acetaminophen 650 mg, 2 tab, Route: PO, Drug form: TAB, Q4H, Dosing Weight 59.545, kg, PRN Pain 1-3/Temp > 100.4 F, Start date: 04/22/18 23:07:00 CDT, Duration: 30 day, Stop date: 05/22/18 23:06:00 CDTNotes: Do not exceed 4 gm/day. (Same as: Tylenol) No Longer Active 04/23/2018 [facility] Ondansetron 4 mg, 2 mL, Route: IVP, Drug form: INJ, Q6H, Dosing Weight 59.545, kg, PRN Nausea & Vomiting, Start date: 04/22/18 23:07:00 CDT, Duration: 30 day, Stop date: 05/22/18 23:06:00 CDTNotes: (Same as: Zofran) MEDICATION WASTE Product Size: 4 mg Product Wasted: ___ mg No Longer Active 04/23/2018 [facility] Ceftriaxone 1 gm, Route: IVPB, ONCE, Dosing Weight 56.818, kg, Priority: STAT, Start date: 04/22/18 20:30:00 CDT, Stop date: 04/22/18 20:30:00 CDT, ABX Indication: Urinary Tract Infection Inactive 04/23/2018 [facility] Acetaminophen 325 MG / Hydrocodone Bitartrate 5 MG Oral Tablet [[place] 5/325] 1 tab, Route: PO, Drug Form: TAB, Dosing Weight 60.909, kg, ONCE, STAT, Start date: 04/13/18 15:48:00 CDT, Stop date: 04/13/18 15:48:00 CDTNotes: (Same as: Delmont 325/5) Do not exceed 4gm/day of acetaminophen. Inactive 04/13/2018 [facility] Tylenol 975 mg, 3 tab, Route: [...] date Oral Active 03/28/2018 SNF: [facility] MetroNIDAZOLE Tablet 500 MG Give 500 mg by mouth three times a day for diverticulitis needs stop date Oral Active 03/28/2018 SNF: [facility] Xarelto Tablet 10 MG Give 1 tablet by mouth one time a day related to UNSPECIFIED FRACTURE OF LEFT FEMUR, SEQUELA (S72.92XS) Oral Active 03/13/2018 SNF: [facility] Lidocaine Patch 5 % Apply to hip topically one time a day for pain and remove per schedule External Active 03/12/2018 SNF: [facility] Enoxaparin Sodium Solution 40 MG/0.4ML Inject 0.4 ml subcutaneously one time a day for Prophylactic for 2 Days Subcutaneous Active 03/12/2018 SNF: [facility] Levaquin Tablet 500 MG Give 1 tablet by mouth one time a day for Prophylactic for 7 Days Oral Active 03/12/2018 SNF: [facility] Metoprolol Tartrate Tablet Give 12.5 mg by mouth two times a day for HTN Hold for SBP less than 110, HR less than 60 Oral Active 03/11/2018 SNF: [facility] Mendo[facility] Cyclobenzaprine HCl Tablet 5 MG Give 1 tablet by mouth every 8 hours as needed for Spasm Oral Active 03/11/2018 SNF: [facility] Delmont Tablet 7.5-325 MG Give 1 tablet by mouth every 6 hours as needed for pain Oral Active 03/11/2018 SNF: [facility]ERI Mendo[facility] Levofloxacin 500 MG Oral Tablet [Levaquin] 500 mg=1 tab, PO, Q24H, X 7 day, # 7 tab, 0 Refill(s) Active 03/11/2018 [facility] cyclobenzaprine 10 mg oral tablet 5 mg=0.5 tab, PO, TID, PRN Spasm, 0 Refill(s) Active 03/11/2018 [facility] metoprolol tartrate 25 mg oral tablet 12.5 mg=0.5 tab, PO, Q12H, 0 Refill(s) Active 03/11/2018 [facility] Potassium Chloride 40 mEq, 2 tab, [...] Patient’s with feeding tube less than 14 Argentine (Dobhoff, J-tube etc) and pediatric and patients. With food and full glass of water Inactive 03/11/2018 [facility] metoprolol tartrate 12.5 mg, 0.5 tab, Route: PO, Drug form: TAB, Q12H, Dosing Weight 60.909, kg, Start date: 03/11/18 9:00:00 CDT, Duration: 30 day, Stop date: 04/09/18 21:00:00 CDTNotes: (Same as: Lopressor) Inactive 03/11/2018 [facility] Melatonin 3 mg, 1 tab, Route: PO, Drug form: TAB, Bedtime, Dosing Weight 60.909, kg, PRN Sleep, Start date: 03/10/18 14:42:00 CDT, Duration: 30 day, Stop date: 04/09/18 14:41:00 CDTNotes: (Same as: Melatonin) No Longer Active 03/10/2018 [facility] Tylenol 650 mg, 2 tab, Route: PO, Drug form: TAB, Q6H, Dosing Weight 60.909, kg, PRN Pain Score 4-6, Start date: 03/10/18 14:42:00 CDT, Duration: 30 day, Stop date: 04/09/18 14:41:00 CDTNotes: Do not exceed 4 gm/day. (Same as: Tylenol) No Longer Active 03/10/2018 [facility] Zosyn 3.375 gm, Route: IVPB, [id number], Dosing Weight 60.909, kg, CrCl >=20 ml/min infuse over 4 hours, Start date: 03/09/18 20:00:00 CDT, Duration: 10 day, Stop date: 03/19/18 12:00:00 CDT, ABX Indication: Other (specify in Comments)Notes: (Same as: Zosyn) Dosing based on Piperacillin component MEDICATION WASTE Product Size: 3375 mg Product Wasted: ___ mg No Longer Active 03/10/2018 [facility] Lidocaine 0.05 MG/MG Transdermal Patch 1 patch, TOP, Daily, 0 Refill(s) Active 03/09/2018 [facility] Enoxaparin 40 mg=0.4 mL, SUB-Q, [id number], 0 Refill(s) Active 03/09/2018 [facility] metoprolol extended release 12.5 mg, 0.5 tab, Route: PO, Drug form: ERTAB, Q12H, Start date: 03/08/18 21:00:00 CDT, Duration: 30 day, Stop date: 04/07/18 9:00:00 CDTNotes: (Same as: Toprol XL) Do Not Crush No Longer Active 03/09/2018 [facility] metoprolol 25 mg oral tablet, extended release 25 mg=1 tab, PO, Daily, # 30 tab, 0 Refill(s) No Longer Active 03/08/2018 [facility] Acetaminophen 325 MG / Hydrocodone Bitartrate 7.5 MG Oral Tablet [Delmont 7.5/325] 1 tab, Route: PO, Drug Form: TAB, Dosing Weight 60.909, kg, Q6H, PRN Pain Score 4-6, Start date: 03/08/18 12:53:00 CDT, Duration: 30 day, Stop date: 04/07/18 12:52:00 CDTNotes: Same as Delmont 325-7.5mg Do not exceed 4gm/day of acetaminophen. No Longer Active 03/08/2018 [facility] Acetaminophen 325 MG / Hydrocodone Bitartrate 5 MG Oral Tablet [Delmont 5/325] 1 tab, Route: PO, Drug Form: TAB, Dosing Weight 60.909, kg, Q6H, PRN Pain Score 1-3, Start date: 03/07/18 17:26:00 CDT, Duration: 30 day, Stop date: 04/06/18 17:25:00 CDTNotes: (Same as: Delmont 325/5) Do not exceed 4gm/day of acetaminophen. No Longer Active 03/07/2018 [facility] Morphine 6 mg, 3 mL, Route: PO, Drug form: SOLN, Q4H, Dosing Weight 60.909, kg, PRN Pain Score 7-10, Start date: 03/07/18 17:26:00 CDT, Stop date: 04/06/18 17:25:00 CDTNotes: (Same as:MORPhine Sulfate) No Longer Active 03/07/2018 [facility] normal saline 0.9% IV 250 mL 250 mL, Rate: 30 ml/hr, Infuse over: 8.3 hr, Route: IV, Dosing Weight 60.909 kg, Total Volume: 250, Start date: 03/07/18 6:23:00 CDT, Duration: 1 day, Stop date: 03/08/18 6:22:00 CDT, 1.65, m2 No Longer Active 03/07/2018 [facility] remove patch Route: TOP, Bedtime, Drug form: ERFILM, Start date: 03/06/18 21:00:00 CDT, Duration: 30 day, Stop date: 04/04/18 21:00:00 CDTNotes: Remove patch 12 hours after application each day. No Longer Active 03/07/2018 [facility] Tylenol 1,000 mg, 2 tab, Route: PO, Drug form: TAB, TID, Dosing Weight 60.909, kg, Start date: 03/06/18 12:00:00 CDT, Duration: 30 day, Stop date: 04/05/18 6:00:00 CDTNotes: Max acetaminophen 4000 mg/day (4 gm/day). (Same as: Tylenol Extra Strength) No Longer Active 03/06/2018 [facility] pantoprazole 40 mg, 1 tab, Route: PO, Drug form: ECTAB, Daily, Dosing Weight 60.909, kg, Start date: 03/06/18 9:00:00 CDT, Duration: 30 day, Stop date: 04/04/18 9:00:00 CDTNotes: Tablet should not be chewed or cr ushed. (Same as: Protonix) No Longer Active 03/06/2018 [facility] Docusate Sodium 100 MG Oral Capsule 100 mg, 1 cap, Route: PO, Drug form: CAP, BID, Dosing Weight 60.909, kg, Start date: 03/06/18 9:00:00 CDT, Duration: 30 day, Stop date: 04/04/18 17:00:00 CDTNotes: (Same as: Colace) (Do Not Crush) No Longer Active 03/06/2018 [facility] Flexeril 5 mg, 0.5 tab, Route: PO, Drug form: TAB, TID, Dosing Weight 60.909, kg, PRN Spasm, Start date: 03/06/18 9:00:00 CDT, Duration: 30 day, Stop date: 04/05/18 8:59:00 CDTNotes: (Same As: Flexeril) No Longer Active 03/06/2018 [facility] Lidocaine 0.05 MG/MG Transdermal Patch 1 patch, Route: TOP, Daily, Drug form: FILM, Start date: 03/06/18 9:00:00 CDT, Duration: 30 day, Stop date: 04/04/18 9:00:00 CDTNotes: Apply only once for up to 12 hours in a 24-hour period (12 hours on and 12 hours off). (Same as: Lidoderm) "Remove old patch before application of new patch" No Longer Active 03/06/2018 [facility] Enoxaparin 40 mg, 0.4 mL, Route: SUB-Q, Drug form: INJ, [id number], Dosing Weight 60.909, kg, Start date: 03/06/18 9:00:00 CDT, Stop date: 04/03/18 9:00:00 CDTNotes: (Same as: Lovenox) No Longer Active 03/06/2018 [facility] Tylenol 1,000 mg, 2 tab, Route: PO, Drug form: TAB, Daily, Dosing Weight 60.909, kg, PRN Pain Score 4-6, Start date: 03/06/18 8:57:00 CDT, Duration: 30 day, Stop date: 04/05/18 8:56:00 CDTNotes: Max acetaminophen 4000 mg/day (4 gm/day). (Same as: Tylenol Extra Strength) No Longer Active 03/06/2018 [facility] Cefazolin 1 gm, Route: IVP, Q8H, Dosing Weight 60.909, kg, Start date: 03/06/18 1:00:00 CDT, Duration: 1 doses or times, Stop date: 03/06/18 1:00:00 CDT, ABX Indication: Surgical ProphylaxisNotes: (Same As: William Win) MEDICATION WASTE Product Size: 1000 mg Product Wasted: ___ mg Inactive 03/06/2018 [facility] Clindamycin 600 mg, 50 mL, Route: IVPB, Drug form: INJ, [id number], Dosing Weight 60.909, kg, Start date: 03/05/18 21:00:00 CDT, Duration: 1 doses or times, Stop date: 03/05/18 21:00:00 CDT, ABX Indication: Surgical Prophylaxis Inactive 03/06/2018 [facility] Labetalol 10 mg, Route: IVP, Q5Min, Dosing Weight 60.909, kg, PRN Elevated BP, Start date: 03/05/18 18:45:00 CDT, Duration: 5 doses or times, Stop date: Limited # of times Inactive 03/05/2018 [facility] Acetaminophen 1,000 mg, Route: PO, Drug form: TAB, ONCE, Dosing Weight 60.909, kg, PRN Pain Score 1-3, Start date: 03/05/18 18:45:00 CDT Inactive 03/05/2018 [facility] Hydralazine 10 mg, Route: IVP, Q20Min, Dosing Weight 60.909, kg, PRN Elevated BP, Start date: 03/05/18 18:45:00 CDT, Duration: 2 doses or times, Stop date: Limited # of times Inactive 03/05/2018 [facility] esmolol 10 mg, Route: IVP, Q5Min, Dosing Weight 60.909, kg, PRN Other -See Comment, Start date: 03/05/18 18:45:00 CDT, Duration: 5 doses or times, Stop date: Limited # of times Inactive 03/05/2018 [facility] Calcium Chloride 0.0014 MEQ/ML / Potassium Chloride 0.004 MEQ/ML / Sodium Chloride 0.103 MEQ/ML / Sodium Lactate 0.028 MEQ/ML Injectable Solution 1,000 mL, Rate: 125 ml/hr, Infuse over: 8 hr, Route: IV, Dosing Weight 60.909 kg, Total Volume: 1,000, Start date: 03/05/18 18:45:00 CDT, Duration: 30 day, Stop date: 04/04/18 18:44:00 CDT, 1.65, m2 Inactive 03/05/2018 [facility] Diphenhydramine 12.5 mg, Route: IVP, Drug form: INJ, Q6H, Dosing Weight 60.909, kg, PRN Itching, Start date: 03/05/18 18:45:00 CDT, Duration: 30 day, Stop date: 04/04/18 18:44:00 CDT Inactive 03/05/2018 [facility] Albuterol 0.83 MG/ML Inhalant Solution 2.49 mg, Route: NEB, Q20Min, Dosing Weight 60.909, kg, PRN Wheezing, Priority: STAT, Start date: 03/05/18 18:45:00 CDT, Duration: 30 day, Stop date: 04/04/18 18:44:00 CDT Inactive 03/05/2018 [facility] Flumazenil 0.2 mg, Route: IVP, PRN, Dosing Weight 60.909, kg, PRN Benzodiazepine Reversal, Initial dose, Start date: 03/05/18 18:45:00 CDT, Duration: 30 day, Stop date: 04/04/18 18:44:00 CDT Inactive 03/05/2018 [facility] Naloxone 0.4 mg, Route: IVP, Q2MIN, Dosing Weight 60.909, kg, PRN Narcotic Reversal, Start date: 03/05/18 18:45:00 CDT, Duration: 8 doses or times, Stop date: Limited # of times Inactive 03/05/2018 [facility] Hydromorphone 0.5 mg, Route: IVP, Q5Min, Dosing Weight 60.909, kg, PRN Pain Score 7-10, Start date: 03/05/18 18:45:00 CDT, Duration: 4 doses or times, Stop date: Limited # of times Inactive 03/05/2018 [facility] Fentanyl 50 microgram, Route: IVP, Q5Min, Dosing Weight 60.909, kg, PRN Pain Score 7-10, Priority: Routine, Start date: 03/05/18 18:45:00 CDT, Duration: 2 doses or times, Stop date: Limited # of times Inactive 03/05/2018 [facility] Morphine 4 mg, Route: IVP, Q5Min, Dosing Weight 60.909, kg, PRN Pain Score 7-10, Start date: 03/05/18 18:45:00 CDT, Duration: 3 doses or times, Stop date: Limited # of times Inactive 03/05/2018 [facility] Oxycodone 5 mg, Route: PO, Drug form: TAB, Q4H, Dosing Weight 60.909, kg, PRN Pain Score 4-6, Start date: 03/05/18 18:45:00 CDT, Duration: 30 day, Stop date: 04/04/18 18:44:00 CDT Inactive 03/05/2018 [facility] Meperidine 12.5 mg, Route: IVP, Q30Min, Dosing Weight 60.909, kg, PRN Other -See Comment, For shivering, Start date: 03/05/18 18:45:00 CDT, Duration: 2 doses or times, Stop date: Limited # of times Inactive 03/05/2018 [facility] Dexamethasone 4 mg, Route: IVP, ONCE, Dosing Weight 60.909, kg, PRN Nausea & Vomiting, Start date: 03/05/18 18:45:00 CDT Inactive 03/05/2018 [facility] Ondansetron 4 mg, Route: IVP, ONCE, Dosing Weight 60.909, kg, PRN Nausea & Vomiting, Start date: 03/05/18 18:45:00 CDT Inactive 03/05/2018 [facility] Dulcolax Laxative 5 mg, 1 tab, Route: PO, Drug form: ECTAB, Q24H, Dosing Weight 60.909, kg, PRN Constipation, Start date: 03/05/18 18:37:00 CDT, Duration: 30 day, Stop date: 04/04/18 18:36:00 CDTNotes: (Same As: Dulcolax , Correctol) (Do Not Crush) "Do Not Crush" No Longer Active 03/05/2018 [facility] Diphenhydramine 12.5 mg, 0.5 tab, Route: PO, Drug form: TAB, Q6H, Dosing Weight 60.909, kg, PRN Itching, Start date: 03/05/18 18:37:00 CDT, Duration: 30 day, Stop date: 04/04/18 18:36:00 CDT No Longer Active 03/05/2018 [facility] Al hydroxide/Mg hydroxide/simethicone 200 mg-200 mg-20 mg/5 mL oral suspension 30 ml, Route: PO, Drug Form: SUSP, Dosing Weight 60.909, kg, Q4H, PRN Indigestion, Start date: 03/05/18 18:37:00 CDT, Duration: 30 day, Stop date: 04/04/18 18:36:00 CDTNotes: (aluminum hydroxide-magnesium hyd- simethicone [phone]/5ml 30 ml ud GRISELDA) No Longer Active 03/05/2018 [facility] Lactated Ringers IV 1,000 mL 1,000 mL, Rate: 75 ml/hr, Infuse over: 13.3 hr, Route: IV, Dosing Weight 60.909 kg, Total Volume: 1,000, Start date: 03/05/18 18:37:00 CDT, Duration: 30 day, Stop date: 04/04/18 18:36:00 CDT, 1.65, m2 No Longer Active 03/05/2018 [facility] Acetaminophen 650 mg, 2 tab, Route: PO, Drug form: TAB, Q4H, Dosing Weight 60.909, kg, PRN Pain 1-3/Temp > 100.4 F, Start date: 03/05/18 18:37:00 CDT, Duration: 30 day, Stop date: 04/04/18 18:36:00 CDTNotes: Do not exceed 4 gm/day. (Same as: Tylenol) No Longer Active 03/05/2018 [facility] rocuronium (ANES) Route: IV, Drug form: INJ, ONCE, Stop date: 03/05/18 18:33:00 CDT Inactive 03/05/2018 [facility] fentaNYL (ANES) Route: IV, Drug form: INJ, ONCE, Stop date: 03/05/18 18:33:00 CDT Inactive 03/05/2018 [facility] ondansetron (ANES) Route: IV, Drug form: INJ, ONCE, Stop date: 03/05/18 18:33:00 CDT Inactive 03/05/2018 [facility] metoprolol (ANES) Route: IV, Drug form: INJ, ONCE, Stop date: 03/05/18 18:33:00 CDT Inactive 03/05/2018 [facility] dexamethasone (ANES) Route: IV, Drug form: INJ, ONCE, Stop date: 03/05/18 18:33:00 CDT Inactive 03/05/2018 [facility] glycopyrrolate (ANES) Route: IV, Drug form: INJ, ONCE, Stop date: 03/05/18 18:33:00 CDT Inactive 03/05/2018 [facility] neostigmine (ANES) Route: IV, Drug form: INJ, ONCE, Stop date: 03/05/18 18:33:00 CDT Inactive 03/05/2018 [facility] esmolol (ANES) Route: IV, Drug form: INJ, ONCE, Stop date: 03/05/18 18:33:00 CDT Inactive 03/05/2018 [facility] Amidate (ANES) Route: IV, Drug form: INJ, ONCE, Stop date: 03/05/18 18:33:00 CDT Inactive 03/05/2018 [facility] norepinephrine (ANES) Route: IV, Drug form: INJ, ONCE, Stop date: 03/05/18 18:03:00 CDT Inactive 03/05/2018 [facility] metoclopramide (ANES) Route: IV, Drug form: INJ, ONCE, Stop date: 03/05/18 18:03:00 CDT Inactive 03/05/2018 [facility] lidocaine (ANES) Route: IV, Drug form: INJ, ONCE, Stop date: 03/05/18 18:03:00 CDT Inactive 03/05/2018 [facility] fentaNYL (ANES) Route: IV, Drug form: INJ, ONCE, Stop date: 03/05/18 17:48:00 CDT Inactive 03/05/2018 [facility] cefOXitin (ANES) Route: IV, Drug form: INJ, ONCE, Stop date: 03/05/18 17:48:00 CDT Inactive 03/05/2018 [facility] propofol (ANES) Route: IV, Drug form: INJ, ONCE, Stop date: 03/05/18 17:48:00 CDT Inactive 03/05/2018 [facility] ceFAZolin (ANES) Route: IV, Drug form: INJ, ONCE, Stop date: 03/05/18 17:38:00 CDT Inactive 03/05/2018 [facility] midazolam (ANES) Route: IV, Drug form: SOLN, ONCE, Stop date: 03/05/18 17:33:00 CDT Inactive 03/05/2018 [facility] metoprolol tartrate 12.5 mg, 0.5 tab, Route: PO, Drug form: TAB, BID, Dosing Weight 60.909, kg, Start date: 03/05/18 17:00:00 CDT, Duration: 30 day, Stop date: 04/04/18 9:00:00 CDTNotes: (Same as: Lopressor) No Longer Active 03/05/2018 [facility] Lactated Ringers Injection IV (ANES) 1000 mL Route: IV, Total Volume: 1,000, Start date: 03/05/18 16:58:00 CDT, Stop date: 03/05/18 17:58:00 CDT Inactive 03/05/2018 [facility] Protonix 40 mg, 1 tab, Route: PO, Drug form: ECTAB, Before Dinner, Dosing Weight 60.909, kg, Start date: 03/05/18 16:30:00 CDT, Duration: 30 day, Stop date: 04/03/18 16:30:00 CDTNotes: Tablet should not be chewed or crushed. (Same as: Protonix) Inactive 03/05/2018 [facility] Hydralazine 10 mg, 0.5 mL, Route: IVP, Drug form: INJ, Q4H, Dosing Weight 60.909, kg, PRN Hypertension, Start date: 03/05/18 10:13:00 CDT, Duration: 30 day, Stop date: 04/04/18 10:12:00 CDTNotes: (Same as: Chichi pena) Push over 5 minutes No Longer Active 03/05/2018 [facility] Melatonin 3 mg, 1 tab, Route: PO, Drug form: TAB, Bedtime, Dosing Weight 60.909, kg, PRN Sleep, Start date: 03/05/18 10:13:00 CDT, Duration: 30 day, Stop date: 04/04/18 10:12:00 CDTNotes: (Same as: Melatonin) No Longer Active 03/05/2018 [facility] Streptococcus pneumoniae serotype 1 capsular antigen diphtheria [id number] protein conjugate vaccine / Streptococcus pneumoniae serotype 14 capsular antigen diphtheria [id number] protein conjugate vaccine / Streptococcus pneumoniae serotype 18C capsular antigen d 0.5 mL, Route: IM, Drug Form: INJ, Daily, Start date: 03/05/18 9:00:00 CDT, Duration: 1 doses or times, Stop date: 03/05/18 9:00:00 CDTNotes: Shake well prior to use (Same as: Prevnar 13) Inactive 03/05/2018 [facility] NURSE please update PT's HEIGHT in [facility] when possible NURSE please update PT's HEIGHT in [facility] when possible, 1, Drug form: MISC, Route: MISC, Q30Min, 03/05/18 8:00:00 CDT, Duration: 4 doses or times, Stop date: 03/05/18 9:30:00 CDT Inactive 03/05/2018 [facility] Ancef + sterile water 20 mL 2 gm, Route: IV, ONCE, Dosing Weight 60.909, kg, Start date: 03/05/18 7:49:00 CDT, Stop date: 03/05/18 7:49:00 CDT, Surgical Prophylaxis Only; For patients Notes: (Same As: Ancef, Kefzol) MEDICATION WASTE Product Size: 1000 mg Product Wasted: ___ mg Inactive 03/05/2018 [facility] hydromorphone 0.3 mg, 0.3 mL, Route: IV, Drug form: INJ, Q4H, PRN Pain Score 7-10, Start date: 03/05/18 5:00:00 CDT, Duration: 30 day, Stop date: 04/04/18 4:59:00 CDTNotes: Same as: Dilaudid No Longer Active 03/05/2018 [facility] metoprolol tartrate 25 mg, PO, BID, metoprolol 2mg 1/2 tab twice daily per medication bottle, 0 Refill(s) No Longer Active 03/05/2018 [facility] Protonix 40 mg, PO, Daily, # 30 tab, 0 Refill(s) Active 03/05/2018 [facility] Fentanyl 50 microgram, Route: IVP, ONCE, Dosing Weight 66.364, kg, Priority: STAT, Start date: 03/04/18 23:59:00 CDT, Stop date: 03/04/18 23:59:00 CDT No Longer Active 03/05/2018 [facility] Saline Flush 0.9% 10 ml, Route: IVP, Drug Form: INJ, Dosing Weight 66.364, kg, PRN, PRN Line Flush, Start date: 03/04/18 23:58:00 CDT, Duration: 30 day, Stop date: 04/03/18 23:57:00 CDTNotes: (Same as: BD Posiflush) No Longer Active 03/05/2018 [facility] Sodium Chloride 0.9% IV 1,000 mL 1,000 mL, Rate: 75 ml/hr, Infuse over: 13.3 hr, Route: IV, Dosing Weight 66.364 kg, Total Volume: 1,000, Start date: 03/04/18 23:58:00 CDT, Duration: 30 day, Stop date: 04/03/18 23:57:00 CDT No Longer Active 03/05/2018 [facility] Acetaminophen 325 MG / Hydrocodone Bitartrate 5 MG Oral Tablet 2 tab, Route: PO, Drug Form: TAB, Dosing Weight 66.364, kg, Q4H, PRN Pain Score 7-10, Start date: 03/04/18 23:58:00 CDT, Duration: 30 day, Stop date: 04/03/18 23:57:00 CDTNotes: (Same as: [place] 325/5) Do not exceed 4gm/day of acetaminophen. No Longer Active 03/05/2018 [facility] Morphine 2 mg, Route: IVP, Q4H, Dosing Weight 66.364, kg, PRN Pain Score 7-10, Start date: 03/04/18 23:58:00 CDT, Duration: 30 day, Stop date: 04/03/18 23:57:00 CDT No Longer Active 03/05/2018 [facility] Dilaudid 0.5 mg, 0.5 mL, Route: IVP, Drug form: INJ, ONCE, Dosing Weight 66.364, kg, Priority: STAT, Start date: 03/04/18 23:37:00 CDT, Stop date: 03/04/18 23:37:00 CDTNotes: Same as: Dilaudid No Longer Active 03/05/2018 [facility] Fentanyl 50 microgram, Route: IVP, ONCE, Dosing Weight 66.364, kg, Priority: STAT, Start date: 03/04/18 21:49:00 CDT, Stop date: 03/04/18 21:49:00 CDT Inactive 03/05/2018 [facility] Allergies, Adverse Reactions, Alerts Substance Category Reaction Severity Reaction type Status Date Reported Comments Source CODINE Assertion Drug allergy Active 01/10/2003 [facility] Tramadol 03/11/2018 [facility] Codeine 03/12/2018 [facility] Penicillin 03/12/2018 [facility] PCN Assertion Drug allergy Active [facility] traMADol Assertion Drug allergy Active [facility] Immunizations Immunization Date Given Site Status Last Updated Comments Source pneumococcal 13-valent vaccine 03/05/2018 Left deltoid completed [facility] Results Order Name Results Value Reference Range Date Interpretation Comments Source CHEM PANEL A/G Ratio 1.0 0.7 - 1.6 04/26/2018 [facility] CHEM PANEL AGAP 8.9 10.0 - 20.0 04/26/2018 [facility] CHEM PANEL Globulin 3.1 2.7 - 4.2 04/26/2018 [facility] CHEM PANEL B/C Ratio 19 6 - 25 04/26/2018 [facility] CHEM PANEL eGFR 80 04/26/2018 Result [...] be multiplied by the estimated BMI. [facility] CHEM PANEL Alk Phos 104 39 - 136 04/26/2018 [facility] CHEM PANEL Bili Total 0.3 0.2 - 1.3 04/26/2018 [facility] CHEM PANEL AST 14 0 - 37 04/26/2018 [facility] CHEM PANEL Sodium Lvl 140 135 - 145 04/26/2018 [facility] CHEM PANEL BUN 13 7 - 22 04/26/2018 [facility] CHEM PANEL Creatinine Lvl 0.67 0.50 - 1.40 04/26/2018 [facility] CHEM PANEL Glucose Lvl 80 70 - 99 04/26/2018 [facility] CHEM PANEL Albumin Lvl 3.0 3.5 - 5.0 04/26/2018 [facility] CHEM PANEL ALT 12 0 - 65 04/26/2018 [facility] CHEM PANEL CO2 27 24 - 32 04/26/2018 [facility] CHEM PANEL Calcium Lvl 8.7 8.5 - 10.5 04/26/2018 [facility] CHEM PANEL Potassium Lvl 3.9 3.5 - 5.1 04/26/2018 [facility] CHEM PANEL Chloride Lvl 108 95 - 109 04/26/2018 [facility] CHEM PANEL Total Protein 6.1 6.4 - 8.4 04/26/2018 [facility] HEMATOLOGY MCV 91.1 80.0 - 98.0 04/26/2018 [facility] HEMATOLOGY Hct 38.5 36.0 - 48.0 04/26/2018 [facility] HEMATOLOGY Hgb 12.9 12.0 - 16.0 04/26/2018 [facility] MCHC 33.5 32.0 - 36.0 04/26/2018 [facility] MCH 30.5 27.0 - 31.0 04/26/2018 [facility] MPV 8.4 7.4 - 10.4 04/26/2018 [facility] Platelet 184 133 - 450 04/26/2018 [facility] HEMATOLOGY RDW 16.2 11.5 - 14.5 04/26/2018 [facility] HEMATOLOGY RBC 4.23 4.20 - 5.40 04/26/2018 [facility] HEMATOLOGY WBC 5.2 3.7 - 10.4 04/26/2018 [facility] HEMATOLOGY Segs-Bands # 2.9 1.5 - 8.1 04/26/2018 [facility] HEMATOLOGY Eosinophils # 0.1 0.0 - 0.5 04/26/2018 [facility] HEMATOLOGY Monocytes # 0.6 0.0 - 0.8 04/26/2018 [facility] HEMATOLOGY Lymphocytes # 1.5 1.0 - 5.5 04/26/2018 [facility] HEMATOLOGY Segs 55.8 45.0 - 75.0 04/26/2018 [facility] HEMATOLOGY Basophils 0.6 0.0 - 1.0 04/26/2018 [facility] HEMATOLOGY Eosinophils 2.9 0.0 - 4.0 04/26/2018 [facility] Monocytes 11.5 2.0 - 12.0 04/26/2018 [facility] Lymphocytes 29.2 20.0 - 40.0 04/26/2018 [facility] CHEM PANEL eGFR 74 04/25/2018 Result [...] be multiplied by the estimated BMI. [facility] CHEM PANEL Bili Total 0.5 0.2 - 1.3 04/25/2018 [facility] CHEM PANEL B/C Ratio 18 6 - 25 04/25/2018 [facility] CHEM PANEL Albumin Lvl 2.8 3.5 - 5.0 04/25/2018 [facility] CHEM PANEL Total Protein 6.2 6.4 - 8.4 04/25/2018 [facility] CHEM PANEL Globulin 3.4 2.7 - 4.2 04/25/2018 [facility] CHEM PANEL ALT 13 0 - 65 04/25/2018 [facility] CHEM PANEL A/G Ratio 0.8 0.7 - 1.6 04/25/2018 [facility] CHEM PANEL Chloride Lvl 110 95 - 109 04/25/2018 [facility] CHEM PANEL CO2 24 24 - 32 04/25/2018 [facility] CHEM PANEL AGAP 11.9 10.0 - 20.0 04/25/2018 [facility] CHEM PANEL Calcium Lvl 8.7 8.5 - 10.5 04/25/2018 [facility] CHEM PANEL Alk Phos 104 39 - 136 04/25/2018 [facility] CHEM PANEL AST 13 0 - 37 04/25/2018 [facility] CHEM PANEL Potassium Lvl 3.9 3.5 - 5.1 04/25/2018 [facility] CHEM PANEL Sodium Lvl 142 135 - 145 04/25/2018 [facility] CHEM PANEL Glucose Lvl 83 70 - 99 04/25/2018 [facility] CHEM PANEL Creatinine Lvl 0.74 0.50 - 1.40 04/25/2018 [facility] CHEM PANEL BUN 13 7 - 22 04/25/2018 [facility] HEMATOLOGY Eosinophils 2.6 0.0 - 4.0 04/25/2018 [facility] HEMATOLOGY Monocytes 11.9 2.0 - 12.0 04/25/2018 [facility] HEMATOLOGY Lymphocytes 24.7 20.0 - 40.0 04/25/2018 [facility] HEMATOLOGY Monocytes # 0.6 0.0 - 0.8 04/25/2018 [facility] HEMATOLOGY Eosinophils # 0.1 0.0 - 0.5 04/25/2018 [facility] HEMATOLOGY Segs-Bands # 3.2 1.5 - 8.1 04/25/2018 [facility] HEMATOLOGY Basophils 0.9 0.0 - 1.0 04/25/2018 [facility] HEMATOLOGY Lymphocytes # 1.3 1.0 - 5.5 04/25/2018 [facility] HEMATOLOGY Segs 59.9 45.0 - 75.0 04/25/2018 [facility] HEMATOLOGY RDW 16.8 11.5 - 14.5 04/25/2018 [facility] HEMATOLOGY Platelet 187 133 - 450 04/25/2018 [facility] HEMATOLOGY MCH 30.8 27.0 - 31.0 04/25/2018 [facility] HEMATOLOGY MCHC 33.5 32.0 - 36.0 04/25/2018 [facility] HEMATOLOGY MPV 8.5 7.4 - 10.4 04/25/2018 [facility] HEMATOLOGY WBC 5.3 3.7 - 10.4 04/25/2018 [facility] HEMATOLOGY Hct 39.0 36.0 - 48.0 04/25/2018 [facility] HEMATOLOGY MCV 91.8 80.0 - 98.0 04/25/2018 [facility] HEMATOLOGY RBC 4.25 4.20 - 5.40 04/25/2018 [facility] HEMATOLOGY Hgb 13.1 12.0 - 16.0 04/25/2018 [facility] CHEM PANEL eGFR 77 04/24/2018 Result [...] be multiplied by the estimated BMI. [facility] CHEM PANEL Calcium Lvl 8.9 8.5 - 10.5 04/24/2018 [facility] CHEM PANEL Chloride Lvl 110 95 - 109 04/24/2018 [facility] CHEM PANEL Alk Phos 101 39 - 136 04/24/2018 [facility] CHEM PANEL AST 9 0 - 37 04/24/2018 [facility] CHEM PANEL CO2 27 24 - 32 04/24/2018 [facility] CHEM PANEL Albumin Lvl 3.1 3.5 - 5.0 04/24/2018 [facility] CHEM PANEL Total Protein 6.1 6.4 - 8.4 04/24/2018 [facility] CHEM PANEL ALT 7 0 - 65 04/24/2018 [facility] CHEM PANEL Bili Total 0.3 0.2 - 1.3 04/24/2018 [facility] CHEM PANEL Potassium Lvl 4.8 3.5 - 5.1 04/24/2018 [facility] CHEM PANEL Glucose Lvl 77 70 - 99 04/24/2018 [facility] CHEM PANEL BUN 13 7 - 22 04/24/2018 [facility] CHEM PANEL Sodium Lvl 145 135 - 145 04/24/2018 [facility] CHEM PANEL Creatinine Lvl 0.72 0.50 - 1.40 04/24/2018 [facility] CHEM PANEL A/G Ratio 1.0 0.7 - 1.6 04/24/2018 [facility] CHEM PANEL AGAP 12.8 10.0 - 20.0 04/24/2018 [facility] CHEM PANEL Globulin 3.0 2.7 - 4.2 04/24/2018 [facility] CHEM PANEL B/C Ratio 18 6 - 25 04/24/2018 [facility] CHEM PANEL Procalcitonin Lvl <0.05 ng/mL 0.00 - 0.10 04/24/2018 [facility] HEMATOLOGY Hct 38.8 36.0 - 48.0 04/24/2018 [facility] HEMATOLOGY MCHC 32.2 32.0 - 36.0 04/24/2018 [facility] MCH 29.7 27.0 - 31.0 04/24/2018 [facility] HEMATOLOGY MCV 92.2 80.0 - 98.0 04/24/2018 [facility] HEMATOLOGY Hgb 12.5 12.0 - 16.0 04/24/2018 [facility] HEMATOLOGY Platelet 211 133 - 450 04/24/2018 [facility] HEMATOLOGY MPV 8.8 7.4 - 10.4 04/24/2018 [facility] HEMATOLOGY RDW 16.8 11.5 - 14.5 04/24/2018 [facility] HEMATOLOGY WBC 5.5 3.7 - 10.4 04/24/2018 [facility] HEMATOLOGY RBC 4.21 4.20 - 5.40 04/24/2018 [facility] HEMATOLOGY Eosinophils 3.2 0.0 - 4.0 04/24/2018 [facility] HEMATOLOGY Monocytes 11.3 2.0 - 12.0 04/24/2018 [facility] HEMATOLOGY Lymphocytes 27.7 20.0 - 40.0 04/24/2018 [facility] HEMATOLOGY Basophils 0.6 0.0 - 1.0 04/24/2018 [facility] HEMATOLOGY Segs-Bands # 3.2 1.5 - 8.1 04/24/2018 [facility] HEMATOLOGY Eosinophils # 0.2 0.0 - 0.5 04/24/2018 [facility] HEMATOLOGY Monocytes # 0.6 0.0 - 0.8 04/24/2018 [facility] HEMATOLOGY Lymphocytes # 1.5 1.0 - 5.5 04/24/2018 [facility] HEMATOLOGY Segs 57.2 45.0 - 75.0 04/24/2018 [facility] CHEM PANEL Lactic Acid Lvl 1.0 0.5 - 2.2 04/23/2018 [facility] URINE AND STOOL UA Urobilinogen <=1.0 mg/dL 0.1 - 1.0 04/23/2018 [facility] URINE AND STOOL UA Leuk Est Large *ABN* (04/22/18 8:07 PM) Negative 04/23/2018 [facility] URINE AND STOOL UA Sq Epi Occasional /LPF Few /LPF 04/23/2018 [facility] URINE AND STOOL UA WBC 44 0 - 5 04/23/2018 [facility] URINE AND STOOL UA RBC 6 0 - 2 04/23/2018 [facility] URINE AND STOOL UA Bacteria Occasional /HPF None Seen /HPF 04/23/2018 [facility] URINE AND STOOL UA Mucus Few /LPF None Seen /LPF 04/23/2018 [facility] URINE AND STOOL UA Blood Moderate *ABN* (04/22/18 8:07 PM) Negative 04/23/2018 [facility] URINE AND STOOL UA Glucose Negative mg/dL Negative mg/dL 04/23/2018 [facility] URINE AND STOOL UA Ketones Negative mg/dL Negative mg/dL 04/23/2018 [facility] URINE AND STOOL UA Bili Negative *NA* (04/22/18 8:07 PM) Negative 04/23/2018 [facility] URINE AND STOOL UA Nitrite Positive *ABN* (04/22/18 8:07 PM) Negative 04/23/2018 [facility] URINE AND STOOL UA pH 5.0 5.0 - 8.0 04/23/2018 [facility] URINE AND STOOL UA Spec Grav 1.016 <=1.030 04/23/2018 [facility] URINE AND STOOL UA Turbidity Clear (04/22/18 8:07 PM) Clear 04/23/2018 [facility] URINE AND STOOL UA Color Yellow *NA* (04/22/18 8:07 PM) Yellow 04/23/2018 [facility] URINE AND STOOL UA Protein Negative mg/dL Negative mg/dL 04/23/2018 [facility] CARDIAC ENZYMES Troponin-I <0.02 0.00 - 0.40 04/23/2018 [facility] URINE AND STOOL UA Urobilinogen <=1.0 mg/dL 0.1 - 1.0 04/13/2018 [facility] URINE AND STOOL UA Mucus Few /LPF None Seen /LPF 04/13/2018 [facility] URINE AND STOOL UA WBC 4 0 - 5 04/13/2018 [facility] URINE AND STOOL UA Sq Epi Occasional /LPF Few /LPF 04/13/2018 [facility] URINE AND STOOL UA RBC 6 0 - 2 04/13/2018 [facility] URINE AND STOOL UA Bacteria Occasional /HPF None Seen /HPF 04/13/2018 [facility] URINE AND STOOL UA pH 6.0 5.0 - 8.0 04/13/2018 [facility] URINE AND STOOL UA Spec Grav 1.014 <=1.030 04/13/2018 [facility] URINE AND STOOL UA Blood Moderate *ABN* (04/13/18 2:03 PM) Negative 04/13/2018 [facility] URINE AND STOOL UA Nitrite Negative (04/13/18 2:03 PM) Negative 04/13/2018 [facility] URINE AND STOOL UA Leuk Est Small *ABN* (04/13/18 2:03 PM) Negative 04/13/2018 [facility] URINE AND STOOL UA Color Yellow *NA* (04/13/18 2:03 PM) Yellow 04/13/2018 [facility] URINE AND STOOL UA Turbidity Clear (04/13/18 2:03 PM) Clear 04/13/2018 [facility] URINE AND STOOL UA Glucose Negative mg/dL Negative mg/dL 04/13/2018 [facility] URINE AND STOOL UA Protein Negative mg/dL Negative mg/dL 04/13/2018 [facility] URINE AND STOOL UA Bili Negative *NA* (04/13/18 2:03 PM) Negative 04/13/2018 [facility] URINE AND STOOL UA Ketones Negative mg/dL Negative mg/dL 04/13/2018 [facility] ELECTROLYTES AGAP 10.6 10.0 - 20.0 03/11/2018 [facility] ELECTROLYTES eGFR 85 03/11/2018 Result Comment: [...] be multiplied by the estimated BMI. [facility] ELECTROLYTES BUN 14 7 - 22 03/11/2018 [facility] ELECTROLYTES CO2 26 24 - 32 03/11/2018 [facility] ELECTROLYTES Calcium Lvl 7.9 8.5 - 10.5 03/11/2018 [facility] ELECTROLYTES Potassium Lvl 3.6 3.5 - 5.1 03/11/2018 [facility] ELECTROLYTES Sodium Lvl 144 135 - 145 03/11/2018 [facility] ELECTROLYTES Chloride Lvl 111 95 - 109 03/11/2018 [facility] ELECTROLYTES Creatinine Lvl 0.56 0.50 - 1.40 03/11/2018 [facility] ELECTROLYTES Glucose Lvl 83 70 - 99 03/11/2018 [facility] HEMATOLOGY MPV 7.8 7.4 - 10.4 03/11/2018 [facility] HEMATOLOGY WBC 5.9 3.7 - 10.4 03/11/2018 [facility] HEMATOLOGY Platelet 214 133 - 450 03/11/2018 [facility] RDW 16.1 11.5 - 14.5 03/11/2018 [facility] MCHC 33.0 32.0 - 36.0 03/11/2018 [facility] HEMATOLOGY Hct 26.7 36.0 - 48.0 03/11/2018 [facility] RBC 3.07 4.20 - 5.40 03/11/2018 [facility] MCV 86.9 80.0 - 98.0 03/11/2018 [facility] HEMATOLOGY Hgb 8.8 12.0 - 16.0 03/11/2018 [facility] MCH 28.7 27.0 - 31.0 03/11/2018 [facility] CHEM PANEL eGFR 86 03/10/2018 Result [...] be multiplied by the estimated BMI. [facility] CHEM PANEL Chloride Lvl 109 95 - 109 03/10/2018 [facility] CHEM PANEL CO2 28 24 - 32 03/10/2018 [facility] CHEM PANEL Calcium Lvl 7.9 8.5 - 10.5 03/10/2018 [facility] CHEM PANEL Sodium Lvl 143 135 - 145 03/10/2018 [facility] CHEM PANEL Creatinine Lvl 0.55 0.50 - 1.40 03/10/2018 [facility] CHEM PANEL Potassium Lvl 3.3 3.5 - 5.1 03/10/2018 [facility] CHEM PANEL BUN 13 7 - 22 03/10/2018 [facility] CHEM PANEL Glucose Lvl 88 70 - 99 03/10/2018 [facility] CHEM PANEL AGAP 9.3 10.0 - 20.0 03/10/2018 [facility] HEMATOLOGY RBC 3.02 4.20 - 5.40 03/10/2018 [facility] HEMATOLOGY Hgb 8.8 12.0 - 16.0 03/10/2018 [facility] HEMATOLOGY WBC 9.2 3.7 - 10.4 03/10/2018 [facility] HEMATOLOGY MPV 7.9 7.4 - 10.4 03/10/2018 [facility] HEMATOLOGY RDW 16.2 11.5 - 14.5 03/10/2018 [facility] HEMATOLOGY Platelet 187 133 - 450 03/10/2018 [facility] HEMATOLOGY Hct 26.0 36.0 - 48.0 03/10/2018 [facility] HEMATOLOGY MCHC 33.7 32.0 - 36.0 03/10/2018 [facility] HEMATOLOGY MCH 29.1 27.0 - 31.0 03/10/2018 [facility] HEMATOLOGY MCV 86.3 80.0 - 98.0 03/10/2018 [facility] ELECTROLYTES AGAP 11.7 10.0 - 20.0 03/09/2018 [facility] ELECTROLYTES eGFR 84 03/09/2018 Result Comment: [...] be multiplied by the estimated BMI. [facility] ELECTROLYTES CO2 27 24 - 32 03/09/2018 [facility] ELECTROLYTES Calcium Lvl 8.1 8.5 - 10.5 03/09/2018 [facility] ELECTROLYTES Glucose Lvl 96 70 - 99 03/09/2018 [facility] ELECTROLYTES Chloride Lvl 107 95 - 109 03/09/2018 [facility] ELECTROLYTES Potassium Lvl 3.7 3.5 - 5.1 03/09/2018 [facility] ELECTROLYTES BUN 9 7 - 22 03/09/2018 [facility] ELECTROLYTES Sodium Lvl 142 135 - 145 03/09/2018 [facility] ELECTROLYTES Creatinine Lvl 0.59 0.50 - 1.40 03/09/2018 [facility] MPV 8.5 7.4 - 10.4 03/09/2018 [facility] Platelet 150 133 - 450 03/09/2018 [facility] Hgb 9.2 12.0 - 16.0 03/09/2018 [facility] Hct 27.1 36.0 - 48.0 03/09/2018 [facility] MCV 86.6 80.0 - 98.0 03/09/2018 [facility] MCH 29.5 27.0 - 31.0 03/09/2018 [facility] MCHC 34.0 32.0 - 36.0 03/09/2018 [facility] RDW 16.3 11.5 - 14.5 03/09/2018 [facility] WBC 7.9 3.7 - 10.4 03/09/2018 [facility] RBC 3.12 4.20 - 5.40 03/09/2018 [facility] BLOOD BANK RESULTS RBC product Product available 1 (03/07/18 6:22 AM) 03/07/2018 Result Comment: 03/07/2018 07:20 ADDIENINO
called to shraddha 03/07/2018 07:20 [facility] HEMATOLOGY Monocytes # 1.5 0.0 - 0.8 03/06/2018 [facility] HEMATOLOGY Monocytes 12.1 2.0 - 12.0 03/06/2018 [facility] HEMATOLOGY Lymphocytes # 1.1 1.0 - 5.5 03/06/2018 [facility] HEMATOLOGY Segs-Bands # 10.0 1.5 - 8.1 03/06/2018 [facility] HEMATOLOGY Basophils 0.3 0.0 - 1.0 03/06/2018 [facility] HEMATOLOGY Lymphocytes 8.8 20.0 - 40.0 03/06/2018 [facility] HEMATOLOGY Segs 78.8 45.0 - 75.0 03/06/2018 [facility] BLOOD BANK RESULTS Antibody Scrn Negative (03/05/18 8:37 AM) 03/05/2018 [facility] BLOOD BANK RESULTS ABO/Rh B POS 03/05/2018 [facility] CHEM PANEL Total Protein 6.3 6.4 - 8.4 03/05/2018 [facility] CHEM PANEL Albumin Lvl 3.0 3.5 - 5.0 03/05/2018 [facility] CHEM PANEL Alk Phos 57 39 - 136 03/05/2018 [facility] CHEM PANEL Bili Total 0.3 0.2 - 1.3 03/05/2018 [facility] CHEM PANEL ALT 12 0 - 65 03/05/2018 [facility] CHEM PANEL AST 14 0 - 37 03/05/2018 [facility] CHEM PANEL B/C Ratio 17 6 - 25 03/05/2018 [facility] CHEM PANEL A/G Ratio 0.9 0.7 - 1.6 03/05/2018 [facility] CHEM PANEL Globulin 3.3 2.7 - 4.2 03/05/2018 [facility] CHEM PANEL Magnesium Lvl 2.2 1.8 - 2.4 03/05/2018 [facility] HEMATOLOGY Basophils 0.3 0.0 - 1.0 03/05/2018 [facility] HEMATOLOGY Eosinophils 0.1 0.0 - 4.0 03/05/2018 [facility] HEMATOLOGY Segs-Bands # 8.2 1.5 - 8.1 03/05/2018 [facility] HEMATOLOGY Lymphocytes # 1.0 1.0 - 5.5 03/05/2018 [facility] HEMATOLOGY Monocytes # 0.7 0.0 - 0.8 03/05/2018 [facility] HEMATOLOGY Segs 82.3 45.0 - 75.0 03/05/2018 [facility] HEMATOLOGY Monocytes 7.3 2.0 - 12.0 03/05/2018 [facility] Lymphocytes 10.0 20.0 - 40.0 03/05/2018 [facility] PT 13.1 12.0 - 14.7 03/05/2018 [facility] HEMATOLOGY INR 0.99 0.85 - 1.17 03/05/2018 [facility] HEMATOLOGY PTT 28.3 22.9 - 35.8 03/05/2018 [facility] HEMATOLOGY Eosinophils # 0.1 0.0 - 0.5 03/05/2018 [facility] Monocytes # 0.7 0.0 - 0.8 03/05/2018 [facility] Segs-Bands # 7.9 1.5 - 8.1 03/05/2018 [facility] Basophils 0.5 0.0 - 1.0 03/05/2018 [facility] Lymphocytes # 1.1 1.0 - 5.5 03/05/2018 [facility] Lymphocytes 11.2 20.0 - 40.0 03/05/2018 [facility] Segs 80.1 45.0 - 75.0 03/05/2018 [facility] Eosinophils 0.7 0.0 - 4.0 03/05/2018 [facility] Monocytes 7.5 2.0 - 12.0 03/05/2018 [facility] Pathology Reports No Data Provided for [...] canal stenosis or neural foraminal narrowing. SL: [id number] 04/27/2018 [facility] Spine Lumbar Comp w Bend views [...] L3, L4, and L5. SL: [id number] 04/24/2018 [facility] Retroperitoneal Complete US Patient Name: NICK CURRIE. : 1930; Age: 87 years y/o; Female. MR: [id number]. Ordering Physician: Shaun Wilkerson MD. PROCEDURE: RENAL [...] Otherwise, kidneys are unremarkable. SL: [id number] 04/23/2018 [facility] Pelvis AP DX Clinical Indication: - [...] hip. No acute abnormalities are identified. SL: [id number] 04/13/2018 [facility] Chest 1view DX PROCEDURE: Chest, AP [...] atelectasis within the right lower chest. SL: [id number] 03/09/2018 [facility] Hip 2/3 views uni w pelvis [...] again evident. There is generalized osteopenia. SL: [id number] 03/06/2018 [facility] Femur series DX Study: Pelvis and [...] again evident. There is generalized osteopenia. SL: [id number] 03/06/2018 [facility] 2/3 views uni w pelvis DX Patient Name: NICK CURRIE : 1930; Age: 87 years y/o Female MR: [id number] * LEFT HIP, intraoperative, History: Comminuted intra-articular [...] comminuted lesser trochanteric fragments. SL: YANIV-PC 03/05/2018 [facility] 2/3 views uni w pelvis DX [...] Intertrochanteric fracture of the left femur. SL: [id number] 03/04/2018 [facility] 1view DX Clinical Indication: Chest pain after fall Comparison: None FINDINGS: The frontal chest radiograph shows normal lung volumes without interstitial or airspace opacities, pleural effusions or pneumothorax. The cardiomediastinal contours are normal for the age of the patient with aortic tortuosity. There are degenerative changes in the spine and shoulders. IMPRESSION: No chest radiographic evidence of acute cardiopulmonary disease. SL: [id number] 03/04/2018 [facility] Femur series DX Patient Name: NICK CURRIE : 1930; Age: 87 years y/o Female MR: [id number] Study: 4 view examination of the left femur dated 03/04/2018. Clinical Indication: Left thigh pain sp fall; Comparison: None Osteopenia. There is a comminuted fracture of the left basicervical and intertrochanteric femoral region which has apex lateral angulation at the fracture site and medial rotation of the left femoral head relative to the left acetabulum. No other fracture or dislocation. SL: [id number] 03/04/2018 [facility] 2 views DX EXAMINATION: Chest, 2 [...] Hg) 117 05/14/2018 SNF: [facility] Diastolic (mm Hg) 95 05/14/2018 SNF: [facility] Heart Rate 71 {beats}/min 05/14/2018 SNF: [facility] Systolic (mm Hg) 120 05/13/2018 SNF: [facility] Diastolic (mm Hg) 63 05/13/2018 SNF: [facility] Heart Rate 66 {beats}/min 05/13/2018 SNF: [facility] Systolic (mm Hg) 129 05/12/2018 SNF: [facility] Diastolic (mm Hg) 60 05/12/2018 SNF: [facility] Heart Rate 61 {beats}/min 05/12/2018 SNF: [facility] Systolic (mm Hg) 140 05/12/2018 SNF: [facility] Diastolic (mm Hg) 98 05/12/2018 SNF: [facility] Heart Rate 79 {beats}/min 05/12/2018 SNF: [facility] Systolic (mm Hg) 154 05/11/2018 SNF: [facility] Diastolic (mm Hg) 71 05/11/2018 SN[facility]: [facility] Heart Rate 60 {beats}/min 05/11/2018 SNF: [facility] Systolic (mm Hg) 131 05/11/2018 SNF: [facility] Diastolic (mm Hg) 70 05/11/2018 SNF: [facility] Heart Rate 67 {beats}/min 05/11/2018 SNF: [facility] Systolic (mm Hg) 116 05/10/2018 SNF: [facility] Diastolic (mm Hg) 63 05/10/2018 SNF: [facility] Heart Rate 60 {beats}/min 05/10/2018 SNF: [facility] Systolic (mm Hg) 118 05/09/2018 SNF: [facility] Diastolic (mm Hg) 96 05/09/2018 SNF: [facility] Heart Rate 62 {beats}/min 05/09/2018 SNF: [facility] Systolic (mm Hg) 150 05/09/2018 SNF: [facility] Diastolic (mm Hg) 66 05/09/2018 SN[facility]: [facility] Heart Rate 66 {beats}/min 05/09/2018 SNF: [facility] Systolic (mm Hg) 128 05/08/2018 SNF: [facility] Diastolic (mm Hg) 62 05/08/2018 SNF: [facility] Heart Rate 69 {beats}/min 05/08/2018 SNF: [facility] Systolic (mm Hg) 144 05/07/2018 SNF: [facility] Diastolic (mm Hg) 78 05/07/2018 SN[facility]: [facility] Heart Rate 64 {beats}/min 05/07/2018 SNF: [facility] Height 62 05/06/2018 SNF: [facility] Systolic (mm Hg) 124 05/06/2018 SNF: [facility] Diastolic (mm Hg) 68 05/06/2018 SN[facility]: [facility] Heart Rate 65 {beats}/min 05/06/2018 SNF: [facility] Systolic (mm Hg) 117 05/06/2018 SNF: [facility] Diastolic (mm Hg) 62 05/06/2018 SN[facility]: [facility] Heart Rate 77 {beats}/min 05/06/2018 SNF: [facility] Systolic (mm Hg) 131 05/05/2018 SNF: [facility] Diastolic (mm Hg) 60 05/05/2018 SNF: [facility] Heart Rate 61 {beats}/min 05/05/2018 SN[facility]: [facility] Systolic (mm Hg) 134 05/05/2018 SN[facility]: [facility] Diastolic (mm Hg) 62 05/05/2018 SNF: [facility] Heart Rate 88 {beats}/min 05/05/2018 SNF: [facility] Systolic (mm Hg) 129 05/04/2018 SNF: [facility] Diastolic (mm Hg) 65 05/04/2018 SN[facility]: [facility] Heart Rate 60 {beats}/min 05/04/2018 SNF: [facility] Systolic (mm Hg) 120 05/04/2018 SNF: [facility] Diastolic (mm Hg) 63 05/04/2018 SN[facility]: [facility] Heart Rate 67 {beats}/min 05/04/2018 SN[facility]: [facility] Systolic (mm Hg) 131 05/03/2018 SNF: [facility] Diastolic (mm Hg) 64 05/03/2018 SNF: [facility] Heart Rate 61 {beats}/min 05/03/2018 SNF: [facility] Systolic (mm Hg) 119 05/03/2018 SN[facility]: [facility] Diastolic (mm Hg) 63 05/03/2018 SN[facility]: [facility] Heart Rate 72 {beats}/min 05/03/2018 SNF: [facility] Systolic (mm Hg) 138 05/02/2018 SNF: [facility] Diastolic (mm Hg) 76 05/02/2018 SNF: [facility] Heart Rate 80 {beats}/min 05/02/2018 SN[facility]: [facility] Systolic (mm Hg) 140 05/01/2018 SN[facility]: [facility] Diastolic (mm Hg) 67 05/01/2018 SNF: [facility] Heart Rate 82 {beats}/min 05/01/2018 SNF: [facility] Systolic (mm Hg) 133 05/01/2018 SN[facility]: [facility] Diastolic (mm Hg) 65 05/01/2018 SNF: [facility] Heart Rate 83 {beats}/min 05/01/2018 SNF: [facility] Systolic (mm Hg) 136 04/30/2018 SNF: [facility] Diastolic (mm Hg) 67 04/30/2018 SN[facility]: [facility] Heart Rate 78 {beats}/min 04/30/2018 SN[facility]: [facility] Systolic (mm Hg) 147 04/30/2018 SNF: [facility] Diastolic (mm Hg) 60 04/30/2018 SN[facility]: [facility] Heart Rate 73 {beats}/min 04/30/2018 SNF: [facility] Systolic (mm Hg) 149 04/29/2018 SNF: [facility] Diastolic (mm Hg) 70 04/29/2018 SN[facility]: [facility] Heart Rate 66 {beats}/min 04/29/2018 SNF: [facility] Systolic (mm Hg) 117 04/29/2018 SN[facility]: [facility] Diastolic (mm Hg) 64 04/29/2018 [facility]: [facility] Heart Rate 71 {beats}/min 04/29/2018 SN[facility]: [facility] Systolic (mm Hg) 118 04/29/2018 SN[facility]: [facility] Diastolic (mm Hg) 70 04/29/2018 SN[facility]: [facility] Heart Rate 62 {beats}/min 04/29/2018 SNF: [facility] Weight 122 04/28/2018 SNF: [facility] Systolic (mm Hg) 127 04/28/2018 SNF: [facility] Diastolic (mm Hg) 63 04/28/2018 SN[facility]: [facility] Heart Rate 78 {beats}/min 04/28/2018 [facility]: [facility] Systolic (mm Hg) 148 04/28/2018 SN[facility]: [facility] Diastolic (mm Hg) 68 04/28/2018 SNF: [facility] Temperature Oral (F) 97.8 F 04/28/2018 SNF: [facility] Heart Rate 70 {beats}/min 04/28/2018 SN[facility]: [facility] Heart Rate 85 04/28/2018 [facility] [...] 04/27/2018 [facility] Systolic (mm Hg) 129 04/27/2018 [facility] Diastolic (mm Hg) 76 04/27/2018 [facility] Respitory Rate 18 04/27/2018 [facility] BMI Calculated 24.01 04/23/2018 [facility] Weight 59.545 04/23/2018 [facility] Height 157.48 cm 04/23/2018 [facility] Height 152.4 cm 04/22/2018 [facility] BMI Calculated 24.46 04/22/2018 [facility] Weight 56.818 04/22/2018 [facility] Respitory Rate 18 04/13/2018 [facility] Heart Rate 64 04/13/2018 [facility] Systolic (mm Hg) 139 04/13/2018 [facility] Diastolic (mm Hg) 58 04/13/2018 [facility] Temperature Oral (F) 98.4 F 04/13/2018 [facility] Systolic (mm Hg) 153 04/13/2018 [facility] Diastolic (mm Hg) 63 04/13/2018 [facility] Systolic (mm Hg) 166 04/13/2018 [facility] Diastolic (mm Hg) 52 04/13/2018 [facility] Heart Rate 62 04/13/2018 [facility] Temperature Oral (F) 98.1 F 04/13/2018 [facility] Respitory Rate 16 04/13/2018 [facility] Systolic (mm Hg) 132 03/31/2018 SNF: [facility] Diastolic (mm Hg) 69 03/31/2018 SNF: [facility] Heart Rate 73 {beats}/min 03/31/2018 [facility]: [facility] Systolic (mm Hg) 131 03/30/2018 [facility]: [facility] Diastolic (mm Hg) 66 03/30/2018 SN[facility]: [facility] Heart Rate 68 {beats}/min 03/30/2018 SN[facility]: [facility] Systolic (mm Hg) 119 03/30/2018 [facility]: [facility] Diastolic (mm Hg) 57 03/30/2018 [facility]: [facility] Heart Rate 69 {beats}/min 03/30/2018 [facility]: [facility] Systolic (mm Hg) 128 03/29/2018 SN[facility]: [facility] Diastolic (mm Hg) 67 03/29/2018 [facility]: [facility] Heart Rate 72 {beats}/min 03/29/2018 [facility]: [facility] Systolic (mm Hg) 131 03/29/2018 [facility]: [facility] Diastolic (mm Hg) 64 03/29/2018 [facility]: [facility] Heart Rate 66 {beats}/min 03/29/2018 [facility]: [facility] Systolic (mm Hg) 121 03/28/2018 [facility]: [facility] Diastolic (mm Hg) 60 03/28/2018 [facility]: [facility] Heart Rate 67 {beats}/min 03/28/2018 [facility]: [facility] Systolic (mm Hg) 112 03/28/2018 [facility]: [facility] Diastolic (mm Hg) 60 03/28/2018 [facility]: [facility] Heart Rate 74 {beats}/min 03/28/2018 [facility]: [facility] Systolic (mm Hg) 135 03/26/2018 [facility]: [facility] Diastolic (mm Hg) 64 03/26/2018 [facility]: [facility] Heart Rate 70 {beats}/min 03/26/2018 SN[facility]: [facility] Systolic (mm Hg) 110 03/26/2018 [facility]: [facility] Diastolic (mm Hg) 58 03/26/2018 [facility]: [facility] Heart Rate 71 {beats}/min 03/26/2018 [facility]: [facility] Systolic (mm Hg) 112 03/25/2018 [facility]: [facility] Diastolic (mm Hg) 60 03/25/2018 [facility]: [facility] Heart Rate 75 {beats}/min 03/25/2018 [facility]: [facility] Systolic (mm Hg) 126 03/25/2018 [facility]: [facility] Diastolic (mm Hg) 81 03/25/2018 SN[facility]: [facility] Heart Rate 76 {beats}/min 03/25/2018 SN[facility]: [facility] Systolic (mm Hg) 125 03/24/2018 SNF: [facility] Diastolic (mm Hg) 60 03/24/2018 SN[facility]: [facility] Heart Rate 72 {beats}/min 03/24/2018 SN[facility]: [facility] Systolic (mm Hg) 136 03/24/2018 SN[facility]: [facility] Diastolic (mm Hg) 61 03/24/2018 SN[facility]: [facility] Heart Rate 83 {beats}/min 03/24/2018 [facility]: [facility] Systolic (mm Hg) 115 03/23/2018 [facility]: [facility] Diastolic (mm Hg) 64 03/23/2018 [facility]: [facility] Heart Rate 76 {beats}/min 03/23/2018 [facility]: [facility] Systolic (mm Hg) 113 03/23/2018 [facility]: [facility] Diastolic (mm Hg) 57 03/23/2018 [facility]: [facility] Heart Rate 74 {beats}/min 03/23/2018 [facility]: [facility] Systolic (mm Hg) 110 03/22/2018 SN[facility]: [facility] Diastolic (mm Hg) 60 03/22/2018 [facility]: [facility] Heart Rate 73 {beats}/min 03/22/2018 SN[facility]: [facility] Systolic (mm Hg) 124 03/22/2018 [facility]: [facility] Diastolic (mm Hg) 60 03/22/2018 [facility]: [facility] Heart Rate 81 {beats}/min 03/22/2018 SN[facility]: [facility] Systolic (mm Hg) 126 03/21/2018 SN[facility]: [facility] Diastolic (mm Hg) 66 03/21/2018 [facility]: [facility] Heart Rate 78 {beats}/min 03/21/2018 [facility]: [facility] Systolic (mm Hg) 120 03/19/2018 [facility]: [facility] Diastolic (mm Hg) 60 03/19/2018 SN[facility]: [facility] Heart Rate 70 {beats}/min 03/19/2018 SN[facility]: [facility] Systolic (mm Hg) 129 03/19/2018 [facility]: [facility] Diastolic (mm Hg) 66 03/19/2018 [facility]: [facility] Heart Rate 73 {beats}/min 03/19/2018 [facility]: [facility] Systolic (mm Hg) 133 03/18/2018 SN[facility]: [facility] Diastolic (mm Hg) 75 03/18/2018 SN[facility]: [facility] Heart Rate 76 {beats}/min 03/18/2018 SN[facility]: [facility] Systolic (mm Hg) 112 03/18/2018 [facility]: [facility] Diastolic (mm Hg) 67 03/18/2018 SN[facility]: [facility] Heart Rate 78 {beats}/min 03/18/2018 [facility]: [facility] Systolic (mm Hg) 125 03/17/2018 [facility]: [facility] Diastolic (mm Hg) 68 03/17/2018 [facility]: [facility] Heart Rate 82 {beats}/min 03/17/2018 SN[facility]: [facility] Systolic (mm Hg) 116 03/17/2018 SN[facility]: [facility] Diastolic (mm Hg) 60 03/17/2018 [facility]: [facility] Heart Rate 96 {beats}/min 03/17/2018 [facility]: [facility] Systolic (mm Hg) 123 03/16/2018 [facility]: [facility] Diastolic (mm Hg) 60 03/16/2018 [facility]: [facility] Heart Rate 80 {beats}/min 03/16/2018 [facility]: [facility] Systolic (mm Hg) 131 03/16/2018 [facility]: [facility] Diastolic (mm Hg) 61 03/16/2018 [facility]: [facility] Heart Rate 84 {beats}/min 03/16/2018 SNF: [facility] Weight 128 03/16/2018 SNF: [facility] Height 62 03/16/2018 SNF: [facility] Systolic (mm Hg) 125 03/15/2018 SNF: [facility] Diastolic (mm Hg) 68 03/15/2018 [facility]: [facility] Heart Rate 75 {beats}/min 03/15/2018 SN[facility]: [facility] Systolic (mm Hg) 114 03/15/2018 SN[facility]: [facility] Diastolic (mm Hg) 84 03/15/2018 SN[facility]: [facility] Heart Rate 86 {beats}/min 03/15/2018 SN[facility]: [facility] Systolic (mm Hg) 133 03/14/2018 SNF: [facility] Diastolic (mm Hg) 71 03/14/2018 SN[facility]: [facility] Heart Rate 80 {beats}/min 03/14/2018 SNF: [facility] Systolic (mm Hg) 129 03/14/2018 SN[facility]: [facility] Diastolic (mm Hg) 60 03/14/2018 [facility]: [facility] Heart Rate 84 {beats}/min 03/14/2018 SNF: [facility] Systolic (mm Hg) 130 03/14/2018 SNF: [facility] Diastolic (mm Hg) 68 03/14/2018 SN[facility]: [facility] Heart Rate 78 {beats}/min 03/14/2018 SN[facility]: [facility] Systolic (mm Hg) 146 03/13/2018 SNF: [facility] Diastolic (mm Hg) 58 03/13/2018 SNF: [facility] Heart Rate 81 {beats}/min 03/13/2018 SNF: [facility] Systolic (mm Hg) 131 03/12/2018 SNF: [facility] Diastolic (mm Hg) 72 03/12/2018 SNF: [facility] Heart Rate 68 {beats}/min 03/12/2018 SNF: [facility] Systolic (mm Hg) 135 03/12/2018 SNF: [facility] Diastolic (mm Hg) 66 03/12/2018 [facility]: [facility] Heart Rate 75 {beats}/min 03/12/2018 SNF: [facility] Systolic (mm Hg) 132 03/12/2018 SNF: [facility] Diastolic (mm Hg) 78 03/12/2018 SNF: [facility] Temperature Oral (F) 97.6 F 03/12/2018 SNF: [facility] Respitory Rate 18 03/12/2018 SNF: [facility] Heart Rate 76 {beats}/min 03/12/2018 SN[facility]: [facility] Systolic (mm Hg) 128 03/11/2018 [facility]: [facility] Diastolic (mm Hg) 60 03/11/2018 SNF: [facility] Heart Rate 84 {beats}/min 03/11/2018 SNF: [facility] Heart Rate 78 03/11/2018 [facility] Respitory Rate 16 03/11/2018 [facility] Systolic (mm Hg) 109 03/11/2018 [facility] Diastolic (mm Hg) 64 03/11/2018 [facility] Temperature Oral (F) 98.4 F 03/11/2018 [facility] Systolic (mm Hg) 113 03/11/2018 [facility] Diastolic (mm Hg) 64 03/11/2018 [facility] Respitory Rate 16 03/11/2018 [facility] Heart Rate 74 03/11/2018 [facility] Temperature Oral (F) 97.9 F 03/11/2018 [facility] Systolic (mm Hg) 109 03/11/2018 [facility] Diastolic (mm Hg) 65 03/11/2018 [facility] Respitory Rate 16 03/11/2018 [facility] Heart Rate 76 03/11/2018 [facility] Temperature Oral (F) 98.0 F 03/11/2018 [facility] Height 62 03/09/2018 SNF: [facility] Weight 128 03/09/2018 SNF: [facility] Weight 60.909 03/05/2018 [facility] BMI Calculated 24.56 03/05/2018 [facility] Height 157.48 cm 03/05/2018 [facility] Encounters Location Location Details Encounter Type Encounter Number Reason For Visit Attending Provider ADM Date DC Date Status Source [facility] [place] [facility] [id number] Afshin Marie 11/28/2015 11/29/2015 [facility] [place] [facility] [place] [facility] [id number] Afshin Marie 04/21/2016 04/22/2016 [facility] [place] [facility] [place] [facility] [id number] Afshin Marie 08/04/2017 08/05/2017 [facility] Inpatient [id number] Yoni Ann 03/05/2018 03/11/2018 [facility] Emergency [id number] John Sheldonwuma 04/13/2018 04/13/2018 [facility] Inpatient [id number] Shaun Moyaarya 04/22/2018 04/28/2018 [facility] Procedures Procedure Code Date Perfomer Comments Source ORIF - Open reduction and internal fixation of fracture [id number] 03/05/2018 [facility] Assessment and Plan Assessment and Plan Date Source Extracted from:Title: Clinical Document Author: Augustina Calero NP Date: 04/27/18 [facility] PATIENT NAME: NICK CURRIE ATTENDING PHYSICIAN: ROYCE FATIMA CONSULTING PHYSICIAN: Augustina Gorman [employer] OPERATOR DATE OF CONSULT: 04/27/2018 REASON FOR CONSULT: [...] CT lumbar 3. F/u in clinic at [phone] in 1-2 weeks. Augustina Calero [employer] OPERATOR 04/28/2018 [place] Extracted from:Title: Discharge Summary * Author: Yoni Ann MD Date: 03/11/18 Discharge Information Disposition: halfway facility Condition: Stable Medications: See med reconciliation [...] risk reduction. Continue rehabilitation therapies. Continue Lovenox. -[place] out POD 14 2. Acute postoperative left [...] We are recommending a referral to the long-term center with 1 to 2 hours of therapy per day and 24-hour nursing care. Case mgmt has contacted family. -Plan for SNF today. 03/11/2018 [facility] Plan of Care No Data Provided for This Section Social History Social History Date Source Smoking StatusStart DateEnd Date Unknown if ever smoked 05/14/2018 16:38:13 05/09/2018 SNF: [facility] Social History TypeResponse Alcohol Never Smoking Status Never smoker; Exposure to Tobacco Smoke None; Cigarette Smoking Last 365 Days No; Reg Smoking Cessation Counseling No entered on: 04/23/18 04/23/2018 [facility] No data available for this section 08/05/2017 RADHA Santiago Family History No Data Provided for This Section Advance Directives Order Name Results Value Date Source Advance Directives Advance Directives Cardiopulmonary Resuscitation 05/14/2018 SNF: [facility] Advance Directives Advance Directives Cardiopulmonary Resuscitation 03/31/2018 SNF: [facility] Functional Status No Data Provided for This Section
[2019-06-09] MEDS ORDERED: ASPIRIN 81 MG CHEW TAB PO STA (11:56)
[2019-06-09 12:34] LABS: BASOPHILS # (AUTO) 0.1 (0.0-0.1); BASOPHILS % 0.6 % (0.0-1.0); EOSINOPHILS # (AUTO) 0.3 (0.0-0.4); EOSINOPHILS % 3.1 % (0.0-6.0); HEMATOCRIT 40.5 % (34.2-44.1); HEMOGLOBIN 13.2 g/dL (12.0-16.0); LYMPHOCYTES # (AUTO) 1.3 (1.0-3.2); LYMPHOCYTES % 15.2 % (18.0-39.1); MEAN CORPUSCULAR HEMOGLOBIN 31.3 pg (28-32); MEAN CORPUSCULAR HGB CONC 32.6 g/dL (31-35); MONOCYTES # (AUTO) 0.5 (0.2-0.8); MONOCYTES % 6.2 % (4.4-11.3); NEUTROPHILS # (AUTO) 6.5 (2.1-6.9); NEUTROPHILS % 74.4 % (38.7-80.0); PLATELET COUNT 251 x10e3/uL (140-360); RED BLOOD COUNT 4.22 x10e6/uL (3.6-5.1); RED CELL DISTRIBUTION WIDTH 12.6 % (11.7-14.4)
--- NOTE | 2019-06-09 12:39 | Diagnostic Imaging Report ---
EXAMINATION: CHEST SINGLE (PORTABLE) INDICATION: Shortness of breath COMPARISON: Multiple prior chest radiographs, most recently of 06/03/2019 FINDINGS: LINES/TUBES:EKG leads overlie the chest. LUNGS:The lungs are moderately inflated. No focal consolidation or pulmonary edema. PLEURA:No pleural effusion or pneumothorax. MEDIASTINUM:The cardiomediastinal silhouette appears normal in size and shape. Atherosclerotic calcifications of the tortuous thoracic aorta. BONES/SOFT TISSUES:No acute osseous injury. ABDOMEN:No free air under the diaphragm. IMPRESSION: No focal pneumonia or pulmonary edema. Signed by: Jj Sue MD on 06/09/2019 12:36 PM
[2019-06-09 12:57] LABS: INR 0.95; PARTIAL THROMBOPLASTIN TIME 27.9 seconds (23.8-35.5); PROTHROMBIN TIME 13.2 seconds (11.9-14.5)
[2019-06-09 13:01] LABS: ALANINE AMINOTRANSFERASE 8 IU/L (0-55); ALBUMIN 3.7 g/dL (3.5-5.0); ALBUMIN/GLOBULIN RATIO 1.1 (0.8-2.0); ALKALINE PHOSPHATASE 68 IU/L (40-150); ANION GAP 15.1 mmol/L (8-16); BLOOD UREA NITROGEN 14 mg/dL (7-26); BUN/CREATININE RATIO 17 (6-25); CALCIUM 9.6 mg/dL (8.4-10.2); CARBON DIOXIDE 22 mmol/L (22-29); CHLORIDE 105 mmol/L (98-107); CREATINE KINASE 19 IU/L (29-168); CREATININE, SERUM 0.82 mg/dL (0.57-1.11); EST GLOMERULAR FILTRATION RATE > 60 ML/MIN (60-); GLUCOSE 106 mg/dL (74-118); MAGNESIUM 2.2 MG/DL (1.3-2.1); POTASSIUM 4.1 mmol/L (3.5-5.1); SODIUM 138 mmol/L (136-145)
[2019-06-09 13:24] LABS: THYROID STIMULATING HORMONE 1.694 uIU/mL (0.350-4.940)
[2019-06-09] MEDS ORDERED: ONDANSETRON HCL INJ 2MG/ML 2ML 2 MG/ML VIAL IV PRN (13:45)
[2019-06-09] MEDS ORDERED: NITROGLYCERIN 0.4 MG SUBL SL PRN (13:45)
--- OUTSIDE RECORDS SUMMARY | 2019-06-09 14:03 | XMS REPORT | Continuity of Care Document ---
Author Author [employer] Organization [employer] Address Unknown Phone Unavailable Care Team Providers Care Game Author Name Role Phone [facility] [employer] Information Exchange Unavailable Unavailable Problems Problem Status Onset Date Classification Date Reported Comments Source M62.81 MUSCLE WEAKNESS 04/28/2018 Diagnosis 05/14/2018 SNF: [facility] [place] - [facility] Walking disability 04/27/2018 Diagnosis 05/14/2018 SNF: [facility] S22.089S UNSPECIFIED FRACTURE OF T11-T12 VERTEBRA, SEQUELA 04/27/2018 Diagnosis 05/14/2018 SNF: [facility] G89.29 OTHER CHRONIC PAIN 04/27/2018 Diagnosis 05/14/2018 SNF: [facility] Z91.81 HISTORY OF FALLING 04/27/2018 Diagnosis 05/14/2018 SNF: [facility] R53.1 WEAKNESS 04/27/2018 Diagnosis 05/14/2018 SNF: [facility] ACUTE UTI,PHYSICAL DECONDITIONING,WEAKNE Active 04/22/2018 [facility] Acute pain of right hip 04/13/2018 04/16/2018 [facility] BACK PAIN Active 04/13/2018 [facility] S72.92XS UNSPECIFIED FRACTURE OF LEFT FEMUR, SEQUELA 03/11/2018 Diagnosis 05/14/2018 SNF: [facility] W19.XXXS UNSPECIFIED FALL, SEQUELA 03/11/2018 Diagnosis 05/14/2018 SNF: [facility] I10 ESSENTIAL HYPERTENSION 03/11/2018 Diagnosis 05/14/2018 SNF: [facility] 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 03/11/2018 Diagnosis 05/14/2018 SNF: [facility] 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 03/11/2018 Diagnosis 05/14/2018 SNF: [facility] FX HIP Active 03/04/2018 [facility] INTRTROCHANTERIC FRACTURE OF FEMUR Active 03/04/2018 [facility] R91.8 - OTHER NONSPECIFIC ABNORMAL FIN Active 04/25/2016 RADHA Santiago D64.9 - "ANEMIA, UNSPECIFIED" Active 04/21/2016 RADHA Santiago DISPLACED INTERTROCHANTERIC FRACTURE OF Active [facility] URINARY TRACT INFECTION, SITE NOT SPECIF Active [facility] OTHER MALAISE Active [facility] WEAKNESS Active [facility] Medications Medication Details Route Status Patient Instructions Ordering Provider Order Date Source Ibuprofen Tablet 800 MG Give 1 tablet by mouth every 8 hours as needed for Pain Oral Active 04/29/2018 SNF: [facility] Nicolasa [facility] Cipro Tablet 500 MG Give 1 tablet by mouth two times a day for UTI for 10 Days Oral Active 04/28/2018 SNF: [facility] Tylenol with Codeine #3 Tablet 300-30 MG Give 1 tablet by mouth every 8 hours as needed for PAIN Oral Active 04/28/2018 SNF: [facility]a [facility] Protonix Tablet Delayed Release 40 MG Give 1 tablet by mouth one time a day for gerd Oral Active 04/28/2018 SNF: [facility] Nicolasa [facility] Metoprolol Tartrate Tablet Give 12.5 mg by mouth two times a day for HTN Hold for SBP less than 110, HR less than 60 Oral Active 04/28/2018 SNF: [facility] Lidocaine Patch 5 % Apply to hip topically one time a day for pain and remove per schedule External Active 04/28/2018 SNF: [facility] - Nicolasa [facility] Cefdinir Capsule 300 MG Give 1 capsule by mouth two times a day for UTI for 7 Days Oral Inactive 04/28/2018 SNF: [facility] Nicolasa [facility] Cyclobenzaprine HCl Tablet 5 MG Give 1 tablet by mouth every 8 hours as needed for Spasm Oral Active 04/28/2018 SNF: [facility] cefdinir 300 MG Oral Capsule 300 mg=1 cap, PO, [id number], X 7 day, # 14 cap, 0 Refill(s), Pharmacy: [id number] Active 04/27/2018 [facility] DME Prescription See Instructions, MISC, ONCE, Use TSLO brace when upright., # 1 ea, 0 Refill(s) Active 04/27/2018 [facility] ocular lubricant solution Each Affected Eye, QID, PRN Dry Eyes, 0 Refill(s) Active 04/27/2018 [facility] Artificial Tears 1 drp, Route: Each Affected Eye, QID, Drug form: SOLN, PRN Dry Eyes, Start date: 04/27/18 13:11:00 CDT, Duration: 30 day, Stop date: 05/27/18 13:10:00 CDT Inactive 04/27/2018 [facility] Vantin 200 mg, Route: PO, Drug form: TAB, [id number], Dosing Weight 59.545, kg, Start date: 04/25/18 14:00:00 CDT, Duration: 14 day, Stop date: 05/09/18 2:00:00 CDT, ABX Indication: Urinary Tract Infection Inactive 04/25/2018 [facility] cefdinir 300 mg, 1 cap, Route: PO, Drug form: CAP, [id number], Start date: 04/25/18 14:00:00 CDT, Duration: 14 day, Stop date: 05/09/18 2:00:00 CDTNotes: (Same As: Omnicef) No Longer Active 04/25/2018 [facility] Rocephin 1 gm, Route: IVP, [id number], Dosing Weight 59.545, kg, Start date: 04/23/18 21:00:00 CDT, Duration: 7 day, Stop date: 04/29/18 21:00:00 CDT, ABX Indication: Genital Tract InfectionNotes: (Same As: Rocephin). Use with 100 mL NS and infuse over 30 min MEDICATION WASTE Product Size: 1000 mg Product Wasted: ___ mg No Longer Active 04/24/2018 [facility] Acetaminophen 325 MG / Hydrocodone Bitartrate 5 MG Oral Tablet [[place]undee 5/325] 1 tab, Route: PO, Drug Form: TAB, Dosing Weight 59.545, kg, Q4H, PRN Pain Score 1-3, Start date: 04/23/18 15:42:00 CDT, Duration: 30 day, Stop date: 05/23/18 15:41:00 CDTNotes: (Same as: Dundee 325/5) Do not exceed 4gm/day of acetaminophen. No Longer Active 04/23/2018 [facility] Lovenox 40 mg, 0.4 mL, Route: SUB-Q, Drug form: INJ, [id number], Dosing Weight 59.545, kg, Start date: 04/23/18 9:00:00 CDT, Duration: 30 day, Stop date: 05/22/18 9:00:00 CDTNotes: (Same as: Lovenox) No Longer Active 04/23/2018 [facility] Protonix 40 mg, 1 tab, Route: PO, Drug form: ECTAB, Daily, Dosing Weight 59.545, kg, Start date: 04/23/18 9:00:00 CDT, Duration: 30 day, Stop date: 05/22/18 9:00:00 CDTNotes: Tablet should not be chewed or crushed. (Same as: Protonix) No Longer Active 04/23/2018 [facility] Lopressor 12.5 mg, 0.5 tab, Route: PO, Drug form: TAB, Q12H, Dosing Weight 59.545, kg, Start date: 04/23/18 9:00:00 CDT, Duration: 30 day, Stop date: 05/22/18 21:00:00 CDTNotes: (Same as: Lopressor) No Longer Active 04/23/2018 [facility] Lidocaine 0.05 MG/MG Transdermal Patch 1 patch, Route: TOP, Daily, Drug form: FILM, Start date: 04/23/18 9:00:00 CDT, Duration: 30 day, Stop date: 05/22/18 9:00:00 CDTNotes: Apply only once for up to 12 hours in a 24-hour period (12 hours on and 12 hours off). (Same as: Lidoderm) "Remove old patch before application of new patch" No Longer Active 04/23/2018 [facility] cyclobenzaprine 5 mg, 0.5 tab, Route: PO, Drug form: TAB, TID, Dosing Weight 59.545, kg, PRN Spasm, Start date: 04/23/18 4:27:00 CDT, Duration: 30 day, Stop date: 05/23/18 4:26:00 CDTNotes: (Same As: Flexeril) No Longer Active 04/23/2018 [facility] Acetaminophen 650 mg, 2 tab, Route: PO, Drug form: TAB, Q4H, Dosing Weight 59.545, kg, PRN Pain 1-3/Temp > 100.4 F, Start date: 04/22/18 23:07:00 CDT, Duration: 30 day, Stop date: 05/22/18 23:06:00 CDTNotes: Do not exceed 4 gm/day. (Same as: Tylenol) No Longer Active 04/23/2018 [facility] Ondansetron 4 mg, 2 mL, Route: IVP, Drug form: INJ, Q6H, Dosing Weight 59.545, kg, PRN Nausea & Vomiting, Start date: 04/22/18 23:07:00 CDT, Duration: 30 day, Stop date: 05/22/18 23:06:00 CDTNotes: (Same as: Zofran) MEDICATION WASTE Product Size: 4 mg Product Wasted: ___ mg No Longer Active 04/23/2018 [facility] Ceftriaxone 1 gm, Route: IVPB, ONCE, Dosing Weight 56.818, kg, Priority: STAT, Start date: 04/22/18 20:30:00 CDT, Stop date: 04/22/18 20:30:00 CDT, ABX Indication: Urinary Tract Infection Inactive 04/23/2018 [facility] Acetaminophen 325 MG / Hydrocodone Bitartrate 5 MG Oral Tablet [[place] 5/325] 1 tab, Route: PO, Drug Form: TAB, Dosing Weight 60.909, kg, ONCE, STAT, Start date: 04/13/18 15:48:00 CDT, Stop date: 04/13/18 15:48:00 CDTNotes: (Same as: Dun[place] 325/5) Do not exceed 4gm/day of acetaminophen. Inactive 04/13/2018 [facility] Tylenol 975 mg, 3 tab, Route: PO, [...] date Oral Active 03/28/2018 SNF: [facility] MetroNIDAZOLE Tablet 500 MG Give 500 mg by mouth three times a day for diverticulitis needs stop date Oral Active 03/28/2018 SNF: [facility] Xarelto Tablet 10 MG Give 1 tablet by mouth one time a day related to UNSPECIFIED FRACTURE OF LEFT FEMUR, SEQUELA (S72.92XS) Oral Active 03/13/2018 SNF: [facility] Lidocaine Patch 5 % Apply to hip topically one time a day for pain and remove per schedule External Active 03/12/2018 SNF: [facility] Enoxaparin Sodium Solution 40 MG/0.4ML Inject 0.4 ml subcutaneously one time a day for Prophylactic for 2 Days Subcutaneous Active 03/12/2018 SNF: [facility] Levaquin Tablet 500 MG Give 1 tablet by mouth one time a day for Prophylactic for 7 Days Oral Active 03/12/2018 SNF: [facility] Metoprolol Tartrate Tablet Give 12.5 mg by mouth two times a day for HTN Hold for SBP less than 110, HR less than 60 Oral Active 03/11/2018 SNF: [facility] Cyclobenzaprine HCl Tablet 5 MG Give 1 tablet by mouth every 8 hours as needed for Spasm Oral Active 03/11/2018 SNF: [facility] Dundee Tablet 7.5-325 MG Give 1 tablet by mouth every 6 hours as needed for pain Oral Active 03/11/2018 SNF: [facility] Levofloxacin 500 MG Oral Tablet [Levaquin] 500 mg=1 tab, PO, Q24H, X 7 day, # 7 tab, 0 Refill(s) Active 03/11/2018 [facility] cyclobenzaprine 10 mg oral tablet 5 mg=0.5 tab, PO, TID, PRN Spasm, 0 Refill(s) Active 03/11/2018 [facility] metoprolol tartrate 25 mg oral tablet 12.5 mg=0.5 tab, PO, Q12H, 0 Refill(s) Active 03/11/2018 [facility] Potassium Chloride 40 mEq, 2 tab, Route: [...] Patient’s with feeding tube less than 14 [place] (Dobhoff, J-tube etc) and pediatric and patients. With food and full glass of water Inactive 03/11/2018 [facility] metoprolol tartrate 12.5 mg, 0.5 tab, Route: PO, Drug form: TAB, Q12H, Dosing Weight 60.909, kg, Start date: 03/11/18 9:00:00 CDT, Duration: 30 day, Stop date: 04/09/18 21:00:00 CDTNotes: (Same as: Lopressor) Inactive 03/11/2018 [facility] Melatonin 3 mg, 1 tab, Route: PO, Drug form: TAB, Bedtime, Dosing Weight 60.909, kg, PRN Sleep, Start date: 03/10/18 14:42:00 CDT, Duration: 30 day, Stop date: 04/09/18 14:41:00 CDTNotes: (Same as: Melatonin) No Longer Active 03/10/2018 [facility] Tylenol 650 mg, 2 tab, Route: PO, Drug form: TAB, Q6H, Dosing Weight 60.909, kg, PRN Pain Score 4-6, Start date: 03/10/18 14:42:00 CDT, Duration: 30 day, Stop date: 04/09/18 14:41:00 CDTNotes: Do not exceed 4 gm/day. (Same as: Tylenol) No Longer Active 03/10/2018 [facility] Zosyn 3.375 gm, Route: IVPB, [id number], Dosing Weight 60.909, kg, CrCl >=20 ml/min infuse over 4 hours, Start date: 03/09/18 20:00:00 CDT, Duration: 10 day, Stop date: 03/19/18 12:00:00 CDT, ABX Indication: Other (specify in Comments)Notes: (Same as: Zosyn) Dosing based on Piperacillin component MEDICATION WASTE Product Size: 3375 mg Product Wasted: ___ mg No Longer Active 03/10/2018 [facility] Lidocaine 0.05 MG/MG Transdermal Patch 1 patch, TOP, Daily, 0 Refill(s) Active 03/09/2018 [facility] Enoxaparin 40 mg=0.4 mL, SUB-Q, [id number], 0 Refill(s) Active 03/09/2018 [facility] metoprolol extended release 12.5 mg, 0.5 tab, Route: PO, Drug form: ERTAB, Q12H, Start date: 03/08/18 21:00:00 CDT, Duration: 30 day, Stop date: 04/07/18 9:00:00 CDTNotes: (Same as: Toprol XL) Do Not Crush No Longer Active 03/09/2018 [facility] metoprolol 25 mg oral tablet, extended release 25 mg=1 tab, PO, Daily, # 30 tab, 0 Refill(s) No Longer Active 03/08/2018 [facility] Acetaminophen 325 MG / Hydrocodone Bitartrate 7.5 MG Oral Tablet [Dundee 7.5/325] 1 tab, Route: PO, Drug Form: TAB, Dosing Weight 60.909, kg, Q6H, PRN Pain Score 4-6, Start date: 03/08/18 12:53:00 CDT, Duration: 30 day, Stop date: 04/07/18 12:52:00 CDTNotes: Same as Dun[place] 325-7.5mg Do not exceed 4gm/day of acetaminophen. No Longer Active 03/08/2018 [facility] Acetaminophen 325 MG / Hydrocodone Bitartrate 5 MG Oral Tablet [Dundee 5/325] 1 tab, Route: PO, Drug Form: TAB, Dosing Weight 60.909, kg, Q6H, PRN Pain Score 1-3, Start date: 03/07/18 17:26:00 CDT, Duration: 30 day, Stop date: 04/06/18 17:25:00 CDTNotes: (Same as: Dundee 325/5) Do not exceed 4gm/day of acetaminophen. No Longer Active 03/07/2018 [facility] Morphine 6 mg, 3 mL, Route: PO, Drug form: SOLN, Q4H, Dosing Weight 60.909, kg, PRN Pain Score 7-10, Start date: 03/07/18 17:26:00 CDT, Stop date: 04/06/18 17:25:00 CDTNotes: (Same as:MORPhine Sulfate) No Longer Active 03/07/2018 [facility] normal saline 0.9% IV 250 mL 250 mL, Rate: 30 ml/hr, Infuse over: 8.3 hr, Route: IV, Dosing Weight 60.909 kg, Total Volume: 250, Start date: 03/07/18 6:23:00 CDT, Duration: 1 day, Stop date: 03/08/18 6:22:00 CDT, 1.65, m2 No Longer Active 03/07/2018 [facility] remove patch Route: TOP, Bedtime, Drug form: ERFILM, Start date: 03/06/18 21:00:00 CDT, Duration: 30 day, Stop date: 04/04/18 21:00:00 CDTNotes: Remove patch 12 hours after application each day. No Longer Active 03/07/2018 [facility] Tylenol 1,000 mg, 2 tab, Route: PO, Drug form: TAB, TID, Dosing Weight 60.909, kg, Start date: 03/06/18 12:00:00 CDT, Duration: 30 day, Stop date: 04/05/18 6:00:00 CDTNotes: Max acetaminophen 4000 mg/day (4 gm/day). (Same as: Tylenol Extra Strength) No Longer Active 03/06/2018 [facility] pantoprazole 40 mg, 1 tab, Route: PO, Drug form: ECTAB, Daily, Dosing Weight 60.909, kg, Start date: 03/06/18 9:00:00 CDT, Duration: 30 day, Stop date: 04/04/18 9:00:00 CDTNotes: Tablet should not be chewed or cr ushed. (Same as: Protonix) No Longer Active 03/06/2018 [facility] Docusate Sodium 100 MG Oral Capsule 100 mg, 1 cap, Route: PO, Drug form: CAP, BID, Dosing Weight 60.909, kg, Start date: 03/06/18 9:00:00 CDT, Duration: 30 day, Stop date: 04/04/18 17:00:00 CDTNotes: (Same as: Colace) (Do Not Crush) No Longer Active 03/06/2018 [facility] Flexeril 5 mg, 0.5 tab, Route: PO, Drug form: TAB, TID, Dosing Weight 60.909, kg, PRN Spasm, Start date: 03/06/18 9:00:00 CDT, Duration: 30 day, Stop date: 04/05/18 8:59:00 CDTNotes: (Same As: Flexeril) No Longer Active 03/06/2018 [facility] Lidocaine 0.05 MG/MG Transdermal Patch 1 patch, Route: TOP, Daily, Drug form: FILM, Start date: 03/06/18 9:00:00 CDT, Duration: 30 day, Stop date: 04/04/18 9:00:00 CDTNotes: Apply only once for up to 12 hours in a 24-hour period (12 hours on and 12 hours off). (Same as: Lidoderm) "Remove old patch before application of new patch" No Longer Active 03/06/2018 [facility] Enoxaparin 40 mg, 0.4 mL, Route: SUB-Q, Drug form: INJ, [id number], Dosing Weight 60.909, kg, Start date: 03/06/18 9:00:00 CDT, Stop date: 04/03/18 9:00:00 CDTNotes: (Same as: Lovenox) No Longer Active 03/06/2018 [facility] Tylenol 1,000 mg, 2 tab, Route: PO, Drug form: TAB, Daily, Dosing Weight 60.909, kg, PRN Pain Score 4-6, Start date: 03/06/18 8:57:00 CDT, Duration: 30 day, Stop date: 04/05/18 8:56:00 CDTNotes: Max acetaminophen 4000 mg/day (4 gm/day). (Same as: Tylenol Extra Strength) No Longer Active 03/06/2018 [facility] Cefazolin 1 gm, Route: IVP, Q8H, Dosing Weight 60.909, kg, Start date: 03/06/18 1:00:00 CDT, Duration: 1 doses or times, Stop date: 03/06/18 1:00:00 CDT, ABX Indication: Surgical ProphylaxisNotes: (Same As: William Win) MEDICATION WASTE Product Size: 1000 mg Product Wasted: ___ mg Inactive 03/06/2018 [facility] Clindamycin 600 mg, 50 mL, Route: IVPB, Drug form: INJ, [id number], Dosing Weight 60.909, kg, Start date: 03/05/18 21:00:00 CDT, Duration: 1 doses or times, Stop date: 03/05/18 21:00:00 CDT, ABX Indication: Surgical Prophylaxis Inactive 03/06/2018 [facility] Labetalol 10 mg, Route: IVP, Q5Min, Dosing Weight 60.909, kg, PRN Elevated BP, Start date: 03/05/18 18:45:00 CDT, Duration: 5 doses or times, Stop date: Limited # of times Inactive 03/05/2018 [facility] Acetaminophen 1,000 mg, Route: PO, Drug form: TAB, ONCE, Dosing Weight 60.909, kg, PRN Pain Score 1-3, Start date: 03/05/18 18:45:00 CDT Inactive 03/05/2018 [facility] Hydralazine 10 mg, Route: IVP, Q20Min, Dosing Weight 60.909, kg, PRN Elevated BP, Start date: 03/05/18 18:45:00 CDT, Duration: 2 doses or times, Stop date: Limited # of times Inactive 03/05/2018 [facility] esmolol 10 mg, Route: IVP, Q5Min, Dosing Weight 60.909, kg, PRN Other -See Comment, Start date: 03/05/18 18:45:00 CDT, Duration: 5 doses or times, Stop date: Limited # of times Inactive 03/05/2018 [facility] Calcium Chloride 0.0014 MEQ/ML / Potassium Chloride 0.004 MEQ/ML / Sodium Chloride 0.103 MEQ/ML / Sodium Lactate 0.028 MEQ/ML Injectable Solution 1,000 mL, Rate: 125 ml/hr, Infuse over: 8 hr, Route: IV, Dosing Weight 60.909 kg, Total Volume: 1,000, Start date: 03/05/18 18:45:00 CDT, Duration: 30 day, Stop date: 04/04/18 18:44:00 CDT, 1.65, m2 Inactive 03/05/2018 [facility] Diphenhydramine 12.5 mg, Route: IVP, Drug form: INJ, Q6H, Dosing Weight 60.909, kg, PRN Itching, Start date: 03/05/18 18:45:00 CDT, Duration: 30 day, Stop date: 04/04/18 18:44:00 CDT Inactive 03/05/2018 [facility] Albuterol 0.83 MG/ML Inhalant Solution 2.49 mg, Route: NEB, Q20Min, Dosing Weight 60.909, kg, PRN Wheezing, Priority: STAT, Start date: 03/05/18 18:45:00 CDT, Duration: 30 day, Stop date: 04/04/18 18:44:00 CDT Inactive 03/05/2018 [facility] Flumazenil 0.2 mg, Route: IVP, PRN, Dosing Weight 60.909, kg, PRN Benzodiazepine Reversal, Initial dose, Start date: 03/05/18 18:45:00 CDT, Duration: 30 day, Stop date: 04/04/18 18:44:00 CDT Inactive 03/05/2018 [facility] Naloxone 0.4 mg, Route: IVP, Q2MIN, Dosing Weight 60.909, kg, PRN Narcotic Reversal, Start date: 03/05/18 18:45:00 CDT, Duration: 8 doses or times, Stop date: Limited # of times Inactive 03/05/2018 [facility] Hydromorphone 0.5 mg, Route: IVP, Q5Min, Dosing Weight 60.909, kg, PRN Pain Score 7-10, Start date: 03/05/18 18:45:00 CDT, Duration: 4 doses or times, Stop date: Limited # of times Inactive 03/05/2018 [facility] Fentanyl 50 microgram, Route: IVP, Q5Min, Dosing Weight 60.909, kg, PRN Pain Score 7-10, Priority: Routine, Start date: 03/05/18 18:45:00 CDT, Duration: 2 doses or times, Stop date: Limited # of times Inactive 03/05/2018 [facility] Morphine 4 mg, Route: IVP, Q5Min, Dosing Weight 60.909, kg, PRN Pain Score 7-10, Start date: 03/05/18 18:45:00 CDT, Duration: 3 doses or times, Stop date: Limited # of times Inactive 03/05/2018 [facility] Oxycodone 5 mg, Route: PO, Drug form: TAB, Q4H, Dosing Weight 60.909, kg, PRN Pain Score 4-6, Start date: 03/05/18 18:45:00 CDT, Duration: 30 day, Stop date: 04/04/18 18:44:00 CDT Inactive 03/05/2018 [facility] Meperidine 12.5 mg, Route: IVP, Q30Min, Dosing Weight 60.909, kg, PRN Other -See Comment, For shivering, Start date: 03/05/18 18:45:00 CDT, Duration: 2 doses or times, Stop date: Limited # of times Inactive 03/05/2018 [facility] Dexamethasone 4 mg, Route: IVP, ONCE, Dosing Weight 60.909, kg, PRN Nausea & Vomiting, Start date: 03/05/18 18:45:00 CDT Inactive 03/05/2018 [facility] Ondansetron 4 mg, Route: IVP, ONCE, Dosing Weight 60.909, kg, PRN Nausea & Vomiting, Start date: 03/05/18 18:45:00 CDT Inactive 03/05/2018 [facility] Dulcolax Laxative 5 mg, 1 tab, Route: PO, Drug form: ECTAB, Q24H, Dosing Weight 60.909, kg, PRN Constipation, Start date: 03/05/18 18:37:00 CDT, Duration: 30 day, Stop date: 04/04/18 18:36:00 CDTNotes: (Same As: Dulcolax , Correctol) (Do Not Crush) "Do Not Crush" No Longer Active 03/05/2018 [facility] Diphenhydramine 12.5 mg, 0.5 tab, Route: PO, Drug form: TAB, Q6H, Dosing Weight 60.909, kg, PRN Itching, Start date: 03/05/18 18:37:00 CDT, Duration: 30 day, Stop date: 04/04/18 18:36:00 CDT No Longer Active 03/05/2018 [facility] Al hydroxide/Mg hydroxide/simethicone 200 mg-200 mg-20 mg/5 mL oral suspension 30 ml, Route: PO, Drug Form: SUSP, Dosing Weight 60.909, kg, Q4H, PRN Indigestion, Start date: 03/05/18 18:37:00 CDT, Duration: 30 day, Stop date: 04/04/18 18:36:00 CDTNotes: (aluminum hydroxide-magnesium hyd- simethicone [id number]/5ml 30 ml ud GRISELDA) No Longer Active 03/05/2018 [facility] Lactated Ringers IV 1,000 mL 1,000 mL, Rate: 75 ml/hr, Infuse over: 13.3 hr, Route: IV, Dosing Weight 60.909 kg, Total Volume: 1,000, Start date: 03/05/18 18:37:00 CDT, Duration: 30 day, Stop date: 04/04/18 18:36:00 CDT, 1.65, m2 No Longer Active 03/05/2018 [facility] Acetaminophen 650 mg, 2 tab, Route: PO, Drug form: TAB, Q4H, Dosing Weight 60.909, kg, PRN Pain 1-3/Temp > 100.4 F, Start date: 03/05/18 18:37:00 CDT, Duration: 30 day, Stop date: 04/04/18 18:36:00 CDTNotes: Do not exceed 4 gm/day. (Same as: Tylenol) No Longer Active 03/05/2018 [facility] rocuronium (ANES) Route: IV, Drug form: INJ, ONCE, Stop date: 03/05/18 18:33:00 CDT Inactive 03/05/2018 [facility] fentaNYL (ANES) Route: IV, Drug form: INJ, ONCE, Stop date: 03/05/18 18:33:00 CDT Inactive 03/05/2018 [facility] ondansetron (ANES) Route: IV, Drug form: INJ, ONCE, Stop date: 03/05/18 18:33:00 CDT Inactive 03/05/2018 [facility] metoprolol (ANES) Route: IV, Drug form: INJ, ONCE, Stop date: 03/05/18 18:33:00 CDT Inactive 03/05/2018 [facility] dexamethasone (ANES) Route: IV, Drug form: INJ, ONCE, Stop date: 03/05/18 18:33:00 CDT Inactive 03/05/2018 [facility] glycopyrrolate (ANES) Route: IV, Drug form: INJ, ONCE, Stop date: 03/05/18 18:33:00 CDT Inactive 03/05/2018 [facility] neostigmine (ANES) Route: IV, Drug form: INJ, ONCE, Stop date: 03/05/18 18:33:00 CDT Inactive 03/05/2018 [facility] esmolol (ANES) Route: IV, Drug form: INJ, ONCE, Stop date: 03/05/18 18:33:00 CDT Inactive 03/05/2018 [facility] Amidate (ANES) Route: IV, Drug form: INJ, ONCE, Stop date: 03/05/18 18:33:00 CDT Inactive 03/05/2018 [facility] norepinephrine (ANES) Route: IV, Drug form: INJ, ONCE, Stop date: 03/05/18 18:03:00 CDT Inactive 03/05/2018 [facility] metoclopramide (ANES) Route: IV, Drug form: INJ, ONCE, Stop date: 03/05/18 18:03:00 CDT Inactive 03/05/2018 [facility] lidocaine (ANES) Route: IV, Drug form: INJ, ONCE, Stop date: 03/05/18 18:03:00 CDT Inactive 03/05/2018 [facility] fentaNYL (ANES) Route: IV, Drug form: INJ, ONCE, Stop date: 03/05/18 17:48:00 CDT Inactive 03/05/2018 [facility] cefOXitin (ANES) Route: IV, Drug form: INJ, ONCE, Stop date: 03/05/18 17:48:00 CDT Inactive 03/05/2018 [facility] propofol (ANES) Route: IV, Drug form: INJ, ONCE, Stop date: 03/05/18 17:48:00 CDT Inactive 03/05/2018 [facility] ceFAZolin (ANES) Route: IV, Drug form: INJ, ONCE, Stop date: 03/05/18 17:38:00 CDT Inactive 03/05/2018 [facility] midazolam (ANES) Route: IV, Drug form: SOLN, ONCE, Stop date: 03/05/18 17:33:00 CDT Inactive 03/05/2018 [facility] metoprolol tartrate 12.5 mg, 0.5 tab, Route: PO, Drug form: TAB, BID, Dosing Weight 60.909, kg, Start date: 03/05/18 17:00:00 CDT, Duration: 30 day, Stop date: 04/04/18 9:00:00 CDTNotes: (Same as: Lopressor) No Longer Active 03/05/2018 [facility] Lactated Ringers Injection IV (ANES) 1000 mL Route: IV, Total Volume: 1,000, Start date: 03/05/18 16:58:00 CDT, Stop date: 03/05/18 17:58:00 CDT Inactive 03/05/2018 [facility] Protonix 40 mg, 1 tab, Route: PO, Drug form: ECTAB, Before Dinner, Dosing Weight 60.909, kg, Start date: 03/05/18 16:30:00 CDT, Duration: 30 day, Stop date: 04/03/18 16:30:00 CDTNotes: Tablet should not be chewed or crushed. (Same as: Protonix) Inactive 03/05/2018 [facility] Hydralazine 10 mg, 0.5 mL, Route: IVP, Drug form: INJ, Q4H, Dosing Weight 60.909, kg, PRN Hypertension, Start date: 03/05/18 10:13:00 CDT, Duration: 30 day, Stop date: 04/04/18 10:12:00 CDTNotes: (Same as: Chichi pena) Push over 5 minutes No Longer Active 03/05/2018 [facility] Melatonin 3 mg, 1 tab, Route: PO, Drug form: TAB, Bedtime, Dosing Weight 60.909, kg, PRN Sleep, Start date: 03/05/18 10:13:00 CDT, Duration: 30 day, Stop date: 04/04/18 10:12:00 CDTNotes: (Same as: Melatonin) No Longer Active 03/05/2018 [facility] Streptococcus pneumoniae serotype 1 capsular antigen diphtheria [id number] protein conjugate vaccine / Streptococcus pneumoniae serotype 14 capsular antigen diphtheria [id number] protein conjugate vaccine / Streptococcus pneumoniae serotype 18C capsular antigen d 0.5 mL, Route: IM, Drug Form: INJ, Daily, Start date: 03/05/18 9:00:00 CDT, Duration: 1 doses or times, Stop date: 03/05/18 9:00:00 CDTNotes: Shake well prior to use (Same as: Prevnar 13) Inactive 03/05/2018 [facility] NURSE please update PT's HEIGHT in [place] when possible NURSE please update PT's HEIGHT in [place] when possible, 1, Drug form: MISC, Route: MISC, Q30Min, 03/05/18 8:00:00 CDT, Duration: 4 doses or times, Stop date: 03/05/18 9:30:00 CDT Inactive 03/05/2018 [facility] Ancef + sterile water 20 mL 2 gm, Route: IV, ONCE, Dosing Weight 60.909, kg, Start date: 03/05/18 7:49:00 CDT, Stop date: 03/05/18 7:49:00 CDT, Surgical Prophylaxis Only; For patients Notes: (Same As: Ancef, Kefzol) MEDICATION WASTE Product Size: 1000 mg Product Wasted: ___ mg Inactive 03/05/2018 [facility] hydromorphone 0.3 mg, 0.3 mL, Route: IV, Drug form: INJ, Q4H, PRN Pain Score 7-10, Start date: 03/05/18 5:00:00 CDT, Duration: 30 day, Stop date: 04/04/18 4:59:00 CDTNotes: Same as: Dilaudid No Longer Active 03/05/2018 [facility] metoprolol tartrate 25 mg, PO, BID, metoprolol 2mg 1/2 tab twice daily per medication bottle, 0 Refill(s) No Longer Active 03/05/2018 [facility] Protonix 40 mg, PO, Daily, # 30 tab, 0 Refill(s) Active 03/05/2018 [facility] Fentanyl 50 microgram, Route: IVP, ONCE, Dosing Weight 66.364, kg, Priority: STAT, Start date: 03/04/18 23:59:00 CDT, Stop date: 03/04/18 23:59:00 CDT No Longer Active 03/05/2018 [facility] Saline Flush 0.9% 10 ml, Route: IVP, Drug Form: INJ, Dosing Weight 66.364, kg, PRN, PRN Line Flush, Start date: 03/04/18 23:58:00 CDT, Duration: 30 day, Stop date: 04/03/18 23:57:00 CDTNotes: (Same as: BD Posiflush) No Longer Active 03/05/2018 [facility] Sodium Chloride 0.9% IV 1,000 mL 1,000 mL, Rate: 75 ml/hr, Infuse over: 13.3 hr, Route: IV, Dosing Weight 66.364 kg, Total Volume: 1,000, Start date: 03/04/18 23:58:00 CDT, Duration: 30 day, Stop date: 04/03/18 23:57:00 CDT No Longer Active 03/05/2018 [facility] Acetaminophen 325 MG / Hydrocodone Bitartrate 5 MG Oral Tablet 2 tab, Route: PO, Drug Form: TAB, Dosing Weight 66.364, kg, Q4H, PRN Pain Score 7-10, Start date: 03/04/18 23:58:00 CDT, Duration: 30 day, Stop date: 04/03/18 23:57:00 CDTNotes: (Same as: [place] 325/5) Do not exceed 4gm/day of acetaminophen. No Longer Active 03/05/2018 [facility] Morphine 2 mg, Route: IVP, Q4H, Dosing Weight 66.364, kg, PRN Pain Score 7-10, Start date: 03/04/18 23:58:00 CDT, Duration: 30 day, Stop date: 04/03/18 23:57:00 CDT No Longer Active 03/05/2018 [facility] Dilaudid 0.5 mg, 0.5 mL, Route: IVP, Drug form: INJ, ONCE, Dosing Weight 66.364, kg, Priority: STAT, Start date: 03/04/18 23:37:00 CDT, Stop date: 03/04/18 23:37:00 CDTNotes: Same as: Dilaudid No Longer Active 03/05/2018 [facility] Fentanyl 50 microgram, Route: IVP, ONCE, Dosing Weight 66.364, kg, Priority: STAT, Start date: 03/04/18 21:49:00 CDT, Stop date: 03/04/18 21:49:00 CDT Inactive 03/05/2018 [facility] Allergies, Adverse Reactions, Alerts Substance Category Reaction Severity Reaction type Status Date Reported Comments Source CODINE Assertion Drug allergy Active 01/10/2003 [facility] Tramadol 03/11/2018 [facility] Codeine 03/12/2018 [facility] Penicillin 03/12/2018 [facility]: [facility] PCN Assertion Drug allergy Active [facility] traMADol Assertion Drug allergy Active [facility] Immunizations Immunization Date Given Site Status Last Updated Comments Source pneumococcal 13-valent vaccine 03/05/2018 Left deltoid completed Meaghan [facility] Results Order Name Results Value Reference Range Date Interpretation Comments Source CHEM PANEL A/G Ratio 1.0 0.7 - 1.6 04/26/2018 [facility] CHEM PANEL AGAP 8.9 10.0 - 20.0 04/26/2018 [facility] CHEM PANEL Globulin 3.1 2.7 - 4.2 04/26/2018 [facility] CHEM PANEL B/C Ratio 19 6 - 25 04/26/2018 [facility] CHEM PANEL eGFR 80 04/26/2018 Result Comment: [...] should be multiplied by the estimated BMI. [facility] CHEM PANEL Alk Phos 104 39 - 136 04/26/2018 [facility] CHEM PANEL Bili Total 0.3 0.2 - 1.3 04/26/2018 [facility] CHEM PANEL AST 14 0 - 37 04/26/2018 [facility] CHEM PANEL Sodium Lvl 140 135 - 145 04/26/2018 [facility] CHEM PANEL BUN 13 7 - 22 04/26/2018 [facility] CHEM PANEL Creatinine Lvl 0.67 0.50 - 1.40 04/26/2018 [facility] CHEM PANEL Glucose Lvl 80 70 - 99 04/26/2018 [facility] CHEM PANEL Albumin Lvl 3.0 3.5 - 5.0 04/26/2018 [facility] CHEM PANEL ALT 12 0 - 65 04/26/2018 [facility] CHEM PANEL CO2 27 24 - 32 04/26/2018 [facility] CHEM PANEL Calcium Lvl 8.7 8.5 - 10.5 04/26/2018 [facility] CHEM PANEL Potassium Lvl 3.9 3.5 - 5.1 04/26/2018 [facility] CHEM PANEL Chloride Lvl 108 95 - 109 04/26/2018 [facility] CHEM PANEL Total Protein 6.1 6.4 - 8.4 04/26/2018 [facility] HEMATOLOGY MCV 91.1 80.0 - 98.0 04/26/2018 [facility] HEMATOLOGY Hct 38.5 36.0 - 48.0 04/26/2018 [facility] HEMATOLOGY Hgb 12.9 12.0 - 16.0 04/26/2018 [facility] MCHC 33.5 32.0 - 36.0 04/26/2018 [facility] MCH 30.5 27.0 - 31.0 04/26/2018 [facility] MPV 8.4 7.4 - 10.4 04/26/2018 [facility] Platelet 184 133 - 450 04/26/2018 [facility] HEMATOLOGY RDW 16.2 11.5 - 14.5 04/26/2018 [facility] HEMATOLOGY RBC 4.23 4.20 - 5.40 04/26/2018 [facility] HEMATOLOGY WBC 5.2 3.7 - 10.4 04/26/2018 [facility] HEMATOLOGY Segs-Bands # 2.9 1.5 - 8.1 04/26/2018 [facility] HEMATOLOGY Eosinophils # 0.1 0.0 - 0.5 04/26/2018 [facility] HEMATOLOGY Monocytes # 0.6 0.0 - 0.8 04/26/2018 [facility] HEMATOLOGY Lymphocytes # 1.5 1.0 - 5.5 04/26/2018 [facility] HEMATOLOGY Segs 55.8 45.0 - 75.0 04/26/2018 [facility] HEMATOLOGY Basophils 0.6 0.0 - 1.0 04/26/2018 [facility] HEMATOLOGY Eosinophils 2.9 0.0 - 4.0 04/26/2018 [facility] Monocytes 11.5 2.0 - 12.0 04/26/2018 [facility] Lymphocytes 29.2 20.0 - 40.0 04/26/2018 [facility] CHEM PANEL eGFR 74 04/25/2018 Result Comment: [...] should be multiplied by the estimated BMI. [facility] CHEM PANEL Bili Total 0.5 0.2 - 1.3 04/25/2018 [facility] CHEM PANEL B/C Ratio 18 6 - 25 04/25/2018 [facility] CHEM PANEL Albumin Lvl 2.8 3.5 - 5.0 04/25/2018 [facility] CHEM PANEL Total Protein 6.2 6.4 - 8.4 04/25/2018 [facility] CHEM PANEL Globulin 3.4 2.7 - 4.2 04/25/2018 [facility] CHEM PANEL ALT 13 0 - 65 04/25/2018 [facility] CHEM PANEL A/G Ratio 0.8 0.7 - 1.6 04/25/2018 [facility] CHEM PANEL Chloride Lvl 110 95 - 109 04/25/2018 [facility] CHEM PANEL CO2 24 24 - 32 04/25/2018 [facility] CHEM PANEL AGAP 11.9 10.0 - 20.0 04/25/2018 [facility] CHEM PANEL Calcium Lvl 8.7 8.5 - 10.5 04/25/2018 [facility] CHEM PANEL Alk Phos 104 39 - 136 04/25/2018 [facility] CHEM PANEL AST 13 0 - 37 04/25/2018 [facility] CHEM PANEL Potassium Lvl 3.9 3.5 - 5.1 04/25/2018 [facility] CHEM PANEL Sodium Lvl 142 135 - 145 04/25/2018 [facility] CHEM PANEL Glucose Lvl 83 70 - 99 04/25/2018 [facility] CHEM PANEL Creatinine Lvl 0.74 0.50 - 1.40 04/25/2018 [facility] CHEM PANEL BUN 13 7 - 22 04/25/2018 [facility] HEMATOLOGY Eosinophils 2.6 0.0 - 4.0 04/25/2018 [facility] HEMATOLOGY Monocytes 11.9 2.0 - 12.0 04/25/2018 [facility] HEMATOLOGY Lymphocytes 24.7 20.0 - 40.0 04/25/2018 [facility] HEMATOLOGY Monocytes # 0.6 0.0 - 0.8 04/25/2018 [facility] HEMATOLOGY Eosinophils # 0.1 0.0 - 0.5 04/25/2018 [facility] HEMATOLOGY Segs-Bands # 3.2 1.5 - 8.1 04/25/2018 [facility] HEMATOLOGY Basophils 0.9 0.0 - 1.0 04/25/2018 [facility] HEMATOLOGY Lymphocytes # 1.3 1.0 - 5.5 04/25/2018 [facility] HEMATOLOGY Segs 59.9 45.0 - 75.0 04/25/2018 [facility] HEMATOLOGY RDW 16.8 11.5 - 14.5 04/25/2018 [facility] HEMATOLOGY Platelet 187 133 - 450 04/25/2018 [facility] HEMATOLOGY MCH 30.8 27.0 - 31.0 04/25/2018 [facility] HEMATOLOGY MCHC 33.5 32.0 - 36.0 04/25/2018 [facility] HEMATOLOGY MPV 8.5 7.4 - 10.4 04/25/2018 [facility] HEMATOLOGY WBC 5.3 3.7 - 10.4 04/25/2018 [facility] HEMATOLOGY Hct 39.0 36.0 - 48.0 04/25/2018 [facility] HEMATOLOGY MCV 91.8 80.0 - 98.0 04/25/2018 [facility] HEMATOLOGY RBC 4.25 4.20 - 5.40 04/25/2018 [facility] HEMATOLOGY Hgb 13.1 12.0 - 16.0 04/25/2018 [facility] CHEM PANEL eGFR 77 04/24/2018 Result Comment: [...] should be multiplied by the estimated BMI. [facility] CHEM PANEL Calcium Lvl 8.9 8.5 - 10.5 04/24/2018 [facility] CHEM PANEL Chloride Lvl 110 95 - 109 04/24/2018 [facility] CHEM PANEL Alk Phos 101 39 - 136 04/24/2018 [facility] CHEM PANEL AST 9 0 - 37 04/24/2018 [facility] CHEM PANEL CO2 27 24 - 32 04/24/2018 [facility] CHEM PANEL Albumin Lvl 3.1 3.5 - 5.0 04/24/2018 [facility] CHEM PANEL Total Protein 6.1 6.4 - 8.4 04/24/2018 [facility] CHEM PANEL ALT 7 0 - 65 04/24/2018 [facility] CHEM PANEL Bili Total 0.3 0.2 - 1.3 04/24/2018 [facility] CHEM PANEL Potassium Lvl 4.8 3.5 - 5.1 04/24/2018 [facility] CHEM PANEL Glucose Lvl 77 70 - 99 04/24/2018 [facility] CHEM PANEL BUN 13 7 - 22 04/24/2018 [facility] CHEM PANEL Sodium Lvl 145 135 - 145 04/24/2018 [facility] CHEM PANEL Creatinine Lvl 0.72 0.50 - 1.40 04/24/2018 [facility] CHEM PANEL A/G Ratio 1.0 0.7 - 1.6 04/24/2018 [facility] CHEM PANEL AGAP 12.8 10.0 - 20.0 04/24/2018 [facility] CHEM PANEL Globulin 3.0 2.7 - 4.2 04/24/2018 [facility] CHEM PANEL B/C Ratio 18 6 - 25 04/24/2018 [facility] CHEM PANEL Procalcitonin Lvl <0.05 ng/mL 0.00 - 0.10 04/24/2018 [facility] HEMATOLOGY Hct 38.8 36.0 - 48.0 04/24/2018 [facility] HEMATOLOGY MCHC 32.2 32.0 - 36.0 04/24/2018 [facility] MCH 29.7 27.0 - 31.0 04/24/2018 [facility] HEMATOLOGY MCV 92.2 80.0 - 98.0 04/24/2018 [facility] HEMATOLOGY Hgb 12.5 12.0 - 16.0 04/24/2018 [facility] HEMATOLOGY Platelet 211 133 - 450 04/24/2018 [facility] HEMATOLOGY MPV 8.8 7.4 - 10.4 04/24/2018 [facility] HEMATOLOGY RDW 16.8 11.5 - 14.5 04/24/2018 [facility] HEMATOLOGY WBC 5.5 3.7 - 10.4 04/24/2018 [facility] HEMATOLOGY RBC 4.21 4.20 - 5.40 04/24/2018 [facility] HEMATOLOGY Eosinophils 3.2 0.0 - 4.0 04/24/2018 [facility] HEMATOLOGY Monocytes 11.3 2.0 - 12.0 04/24/2018 [facility] HEMATOLOGY Lymphocytes 27.7 20.0 - 40.0 04/24/2018 [facility] HEMATOLOGY Basophils 0.6 0.0 - 1.0 04/24/2018 [facility] HEMATOLOGY Segs-Bands # 3.2 1.5 - 8.1 04/24/2018 [facility] HEMATOLOGY Eosinophils # 0.2 0.0 - 0.5 04/24/2018 [facility] HEMATOLOGY Monocytes # 0.6 0.0 - 0.8 04/24/2018 [facility] HEMATOLOGY Lymphocytes # 1.5 1.0 - 5.5 04/24/2018 [facility] HEMATOLOGY Segs 57.2 45.0 - 75.0 04/24/2018 [facility] CHEM PANEL Lactic Acid Lvl 1.0 0.5 - 2.2 04/23/2018 [facility] URINE AND STOOL UA Urobilinogen <=1.0 mg/dL 0.1 - 1.0 04/23/2018 [facility] URINE AND STOOL UA Leuk Est Large *ABN* (04/22/18 8:07 PM) Negative 04/23/2018 [facility] URINE AND STOOL UA Sq Epi Occasional /LPF Few /LPF 04/23/2018 [facility] URINE AND STOOL UA WBC 44 0 - 5 04/23/2018 [facility] URINE AND STOOL UA RBC 6 0 - 2 04/23/2018 [facility] URINE AND STOOL UA Bacteria Occasional /HPF None Seen /HPF 04/23/2018 [facility] URINE AND STOOL UA Mucus Few /LPF None Seen /LPF 04/23/2018 [facility] URINE AND STOOL UA Blood Moderate *ABN* (04/22/18 8:07 PM) Negative 04/23/2018 [facility] URINE AND STOOL UA Glucose Negative mg/dL Negative mg/dL 04/23/2018 [facility] URINE AND STOOL UA Ketones Negative mg/dL Negative mg/dL 04/23/2018 [facility] URINE AND STOOL UA Bili Negative *NA* (04/22/18 8:07 PM) Negative 04/23/2018 [facility] URINE AND STOOL UA Nitrite Positive *ABN* (04/22/18 8:07 PM) Negative 04/23/2018 [facility] URINE AND STOOL UA pH 5.0 5.0 - 8.0 04/23/2018 [facility] URINE AND STOOL UA Spec Grav 1.016 <=1.030 04/23/2018 [facility] URINE AND STOOL UA Turbidity Clear (04/22/18 8:07 PM) Clear 04/23/2018 [facility] URINE AND STOOL UA Color Yellow *NA* (04/22/18 8:07 PM) Yellow 04/23/2018 [facility] URINE AND STOOL UA Protein Negative mg/dL Negative mg/dL 04/23/2018 [facility] CARDIAC ENZYMES Troponin-I <0.02 0.00 - 0.40 04/23/2018 [facility] URINE AND STOOL UA Urobilinogen <=1.0 mg/dL 0.1 - 1.0 04/13/2018 [facility] URINE AND STOOL UA Mucus Few /LPF None Seen /LPF 04/13/2018 [facility] URINE AND STOOL UA WBC 4 0 - 5 04/13/2018 [facility] URINE AND STOOL UA Sq Epi Occasional /LPF Few /LPF 04/13/2018 [facility] URINE AND STOOL UA RBC 6 0 - 2 04/13/2018 [facility] URINE AND STOOL UA Bacteria Occasional /HPF None Seen /HPF 04/13/2018 [facility] URINE AND STOOL UA pH 6.0 5.0 - 8.0 04/13/2018 [facility] URINE AND STOOL UA Spec Grav 1.014 <=1.030 04/13/2018 [facility] URINE AND STOOL UA Blood Moderate *ABN* (04/13/18 2:03 PM) Negative 04/13/2018 [facility] URINE AND STOOL UA Nitrite Negative (04/13/18 2:03 PM) Negative 04/13/2018 [facility] URINE AND STOOL UA Leuk Est Small *ABN* (04/13/18 2:03 PM) Negative 04/13/2018 [facility] URINE AND STOOL UA Color Yellow *NA* (04/13/18 2:03 PM) Yellow 04/13/2018 [facility] URINE AND STOOL UA Turbidity Clear (04/13/18 2:03 PM) Clear 04/13/2018 [facility] URINE AND STOOL UA Glucose Negative mg/dL Negative mg/dL 04/13/2018 [facility] URINE AND STOOL UA Protein Negative mg/dL Negative mg/dL 04/13/2018 [facility] URINE AND STOOL UA Bili Negative *NA* (04/13/18 2:03 PM) Negative 04/13/2018 [facility] URINE AND STOOL UA Ketones Negative mg/dL Negative mg/dL 04/13/2018 [facility] ELECTROLYTES AGAP 10.6 10.0 - 20.0 03/11/2018 [facility] ELECTROLYTES eGFR 85 03/11/2018 Result Comment: The [...] should be multiplied by the estimated BMI. [facility] ELECTROLYTES BUN 14 7 - 22 03/11/2018 [facility] ELECTROLYTES CO2 26 24 - 32 03/11/2018 [facility] ELECTROLYTES Calcium Lvl 7.9 8.5 - 10.5 03/11/2018 [facility] ELECTROLYTES Potassium Lvl 3.6 3.5 - 5.1 03/11/2018 [facility] ELECTROLYTES Sodium Lvl 144 135 - 145 03/11/2018 [facility] ELECTROLYTES Chloride Lvl 111 95 - 109 03/11/2018 [facility] ELECTROLYTES Creatinine Lvl 0.56 0.50 - 1.40 03/11/2018 [facility] ELECTROLYTES Glucose Lvl 83 70 - 99 03/11/2018 [facility] HEMATOLOGY MPV 7.8 7.4 - 10.4 03/11/2018 [facility] HEMATOLOGY WBC 5.9 3.7 - 10.4 03/11/2018 [facility] HEMATOLOGY Platelet 214 133 - 450 03/11/2018 [facility] RDW 16.1 11.5 - 14.5 03/11/2018 [facility] MCHC 33.0 32.0 - 36.0 03/11/2018 [facility] HEMATOLOGY Hct 26.7 36.0 - 48.0 03/11/2018 [facility] RBC 3.07 4.20 - 5.40 03/11/2018 [facility] MCV 86.9 80.0 - 98.0 03/11/2018 [facility] HEMATOLOGY Hgb 8.8 12.0 - 16.0 03/11/2018 [facility] MCH 28.7 27.0 - 31.0 03/11/2018 [facility] CHEM PANEL eGFR 86 03/10/2018 Result Comment: [...] should be multiplied by the estimated BMI. [facility] CHEM PANEL Chloride Lvl 109 95 - 109 03/10/2018 [facility] CHEM PANEL CO2 28 24 - 32 03/10/2018 [facility] CHEM PANEL Calcium Lvl 7.9 8.5 - 10.5 03/10/2018 [facility] CHEM PANEL Sodium Lvl 143 135 - 145 03/10/2018 [facility] CHEM PANEL Creatinine Lvl 0.55 0.50 - 1.40 03/10/2018 [facility] CHEM PANEL Potassium Lvl 3.3 3.5 - 5.1 03/10/2018 [facility] CHEM PANEL BUN 13 7 - 22 03/10/2018 [facility] CHEM PANEL Glucose Lvl 88 70 - 99 03/10/2018 [facility] CHEM PANEL AGAP 9.3 10.0 - 20.0 03/10/2018 [facility] HEMATOLOGY RBC 3.02 4.20 - 5.40 03/10/2018 [facility] HEMATOLOGY Hgb 8.8 12.0 - 16.0 03/10/2018 [facility] HEMATOLOGY WBC 9.2 3.7 - 10.4 03/10/2018 [facility] HEMATOLOGY MPV 7.9 7.4 - 10.4 03/10/2018 [facility] HEMATOLOGY RDW 16.2 11.5 - 14.5 03/10/2018 [facility] HEMATOLOGY Platelet 187 133 - 450 03/10/2018 [facility] HEMATOLOGY Hct 26.0 36.0 - 48.0 03/10/2018 [facility] HEMATOLOGY MCHC 33.7 32.0 - 36.0 03/10/2018 [facility] HEMATOLOGY MCH 29.1 27.0 - 31.0 03/10/2018 [facility] HEMATOLOGY MCV 86.3 80.0 - 98.0 03/10/2018 [facility] ELECTROLYTES AGAP 11.7 10.0 - 20.0 03/09/2018 [facility] ELECTROLYTES eGFR 84 03/09/2018 Result Comment: The [...] should be multiplied by the estimated BMI. [facility] ELECTROLYTES CO2 27 24 - 32 03/09/2018 [facility] ELECTROLYTES Calcium Lvl 8.1 8.5 - 10.5 03/09/2018 [facility] ELECTROLYTES Glucose Lvl 96 70 - 99 03/09/2018 [facility] ELECTROLYTES Chloride Lvl 107 95 - 109 03/09/2018 [facility] ELECTROLYTES Potassium Lvl 3.7 3.5 - 5.1 03/09/2018 [facility] ELECTROLYTES BUN 9 7 - 22 03/09/2018 [facility] ELECTROLYTES Sodium Lvl 142 135 - 145 03/09/2018 [facility] ELECTROLYTES Creatinine Lvl 0.59 0.50 - 1.40 03/09/2018 [facility] MPV 8.5 7.4 - 10.4 03/09/2018 [facility] Platelet 150 133 - 450 03/09/2018 [facility] Hgb 9.2 12.0 - 16.0 03/09/2018 [facility] Hct 27.1 36.0 - 48.0 03/09/2018 [facility] MCV 86.6 80.0 - 98.0 03/09/2018 [facility] MCH 29.5 27.0 - 31.0 03/09/2018 [facility] MCHC 34.0 32.0 - 36.0 03/09/2018 [facility] RDW 16.3 11.5 - 14.5 03/09/2018 [facility] WBC 7.9 3.7 - 10.4 03/09/2018 [facility] RBC 3.12 4.20 - 5.40 03/09/2018 [facility] BLOOD BANK RESULTS RBC product Product available 1 (03/07/18 6:22 AM) 03/07/2018 Result Comment: 03/07/2018 07:20 ADDIENINO
called to shraddha 03/07/2018 07:20 [facility] HEMATOLOGY Monocytes # 1.5 0.0 - 0.8 03/06/2018 [facility] HEMATOLOGY Monocytes 12.1 2.0 - 12.0 03/06/2018 [facility] HEMATOLOGY Lymphocytes # 1.1 1.0 - 5.5 03/06/2018 [facility] HEMATOLOGY Segs-Bands # 10.0 1.5 - 8.1 03/06/2018 [facility] HEMATOLOGY Basophils 0.3 0.0 - 1.0 03/06/2018 [facility] HEMATOLOGY Lymphocytes 8.8 20.0 - 40.0 03/06/2018 [facility] HEMATOLOGY Segs 78.8 45.0 - 75.0 03/06/2018 [facility] BLOOD BANK RESULTS Antibody Scrn Negative (03/05/18 8:37 AM) 03/05/2018 [facility] BLOOD BANK RESULTS ABO/Rh B POS 03/05/2018 [facility] CHEM PANEL Total Protein 6.3 6.4 - 8.4 03/05/2018 [facility] CHEM PANEL Albumin Lvl 3.0 3.5 - 5.0 03/05/2018 [facility] CHEM PANEL Alk Phos 57 39 - 136 03/05/2018 [facility] CHEM PANEL Bili Total 0.3 0.2 - 1.3 03/05/2018 [facility] CHEM PANEL ALT 12 0 - 65 03/05/2018 [facility] CHEM PANEL AST 14 0 - 37 03/05/2018 [facility] CHEM PANEL B/C Ratio 17 6 - 25 03/05/2018 [facility] CHEM PANEL A/G Ratio 0.9 0.7 - 1.6 03/05/2018 [facility] CHEM PANEL Globulin 3.3 2.7 - 4.2 03/05/2018 [facility] CHEM PANEL Magnesium Lvl 2.2 1.8 - 2.4 03/05/2018 [facility] HEMATOLOGY Basophils 0.3 0.0 - 1.0 03/05/2018 [facility] HEMATOLOGY Eosinophils 0.1 0.0 - 4.0 03/05/2018 [facility] HEMATOLOGY Segs-Bands # 8.2 1.5 - 8.1 03/05/2018 [facility] HEMATOLOGY Lymphocytes # 1.0 1.0 - 5.5 03/05/2018 [facility] HEMATOLOGY Monocytes # 0.7 0.0 - 0.8 03/05/2018 [facility] HEMATOLOGY Segs 82.3 45.0 - 75.0 03/05/2018 [facility] HEMATOLOGY Monocytes 7.3 2.0 - 12.0 03/05/2018 [facility] Lymphocytes 10.0 20.0 - 40.0 03/05/2018 [facility] PT 13.1 12.0 - 14.7 03/05/2018 [facility] HEMATOLOGY INR 0.99 0.85 - 1.17 03/05/2018 [facility] HEMATOLOGY PTT 28.3 22.9 - 35.8 03/05/2018 [facility] HEMATOLOGY Eosinophils # 0.1 0.0 - 0.5 03/05/2018 [facility] Monocytes # 0.7 0.0 - 0.8 03/05/2018 [facility] Segs-Bands # 7.9 1.5 - 8.1 03/05/2018 [facility] Basophils 0.5 0.0 - 1.0 03/05/2018 [facility] Lymphocytes # 1.1 1.0 - 5.5 03/05/2018 [facility] Lymphocytes 11.2 20.0 - 40.0 03/05/2018 [facility] Segs 80.1 45.0 - 75.0 03/05/2018 [facility] Eosinophils 0.7 0.0 - 4.0 03/05/2018 [facility] Monocytes 7.5 2.0 - 12.0 03/05/2018 [facility] Pathology Reports No Data Provided for This [...] canal stenosis or neural foraminal narrowing. SL: [id number] 04/27/2018 [facility] Spine Lumbar Comp w Bend views DX [...] L3, L4, and L5. SL: EDGAR 04/24/2018 [facility] Retroperitoneal Complete US Patient Name: NICK CURRIE. : 1930; Age: 87 years y/o; Female. MR: [id number]. Ordering Physician: Shaun Wilkerson MD. PROCEDURE: RENAL [...] Otherwise, kidneys are unremarkable. SL: [id number] 04/23/2018 [facility] Pelvis AP DX Clinical Indication: - Acute [...] hip. No acute abnormalities are identified. SL: [id number] 04/13/2018 [facility] Chest 1view DX PROCEDURE: Chest, AP on 03/09/2018 at 1947 hours. INDICATION: Shortness of breath. COMPARISON: Chest radiographs dated 03/04/2018 and 08/04/2017. FINDINGS: No pleural effusion or pneumothorax. Linear density has developed in the right lower chest suggesting atelectasis. Lungs are otherwise clear without acute infiltrates. No venous congestion or consolidation. Mediastinum is unremarkable. IMPRESSION: Linear atelectasis within the right lower chest. SL: [id number] 03/09/2018 [facility] Hip 2/3 views uni w pelvis DX [...] again evident. There is generalized osteopenia. SL: [id number] 03/06/2018 [facility] Femur series DX Study: Pelvis and left [...] again evident. There is generalized osteopenia. SL: [id number] 03/06/2018 [facility] 2/3 views uni w pelvis DX Patient Name: NICK CURRIE : 1930; Age: 87 years y/o Female MR: [id number] * LEFT HIP, intraoperative, History: Comminuted intra-articular [...] comminuted lesser trochanteric fragments. SL: [id number] 03/05/2018 [facility] 2/3 views uni w pelvis DX [...] Intertrochanteric fracture of the left femur. SL: [id number] 03/04/2018 [facility] 1view DX Clinical Indication: Chest pain after fall Comparison: None FINDINGS: The frontal chest radiograph shows normal lung volumes without interstitial or airspace opacities, pleural effusions or pneumothorax. The cardiomediastinal contours are normal for the age of the patient with aortic tortuosity. There are degenerative changes in the spine and shoulders. IMPRESSION: No chest radiographic evidence of acute cardiopulmonary disease. SL: [id number] 03/04/2018 [facility] Femur series DX Patient Name: NICK CURRIE : 1930; Age: 87 years y/o Female MR: [id number] Study: 4 view examination of the left femur dated 03/04/2018. Clinical Indication: Left thigh pain sp fall; Comparison: None Osteopenia. There is a comminuted fracture of the left basicervical and intertrochanteric femoral region which has apex lateral angulation at the fracture site and medial rotation of the left femoral head relative to the left acetabulum. No other fracture or dislocation. SL: [id number] 03/04/2018 [facility] 2 views DX EXAMINATION: Chest, [...] Hg) 117 05/14/2018 [facility] Diastolic (mm Hg) 95 05/14/2018 [facility] Heart Rate 71 {beats}/min 05/14/2018 SN[facility]: [facility] Systolic (mm Hg) 120 05/13/2018 [facility]: [facility] Diastolic (mm Hg) 63 05/13/2018 [facility]: [facility] Heart Rate 66 {beats}/min 05/13/2018 [facility]: [facility] Systolic (mm Hg) 129 05/12/2018 [facility]: [facility] Diastolic (mm Hg) 60 05/12/2018 [facility] Heart Rate 61 {beats}/min 05/12/2018 [facility]: [facility] Systolic (mm Hg) 140 05/12/2018 [facility]: [facility] Diastolic (mm Hg) 98 05/12/2018 [facility] Heart Rate 79 {beats}/min 05/12/2018 [facility]: [facility] Systolic (mm Hg) 154 05/11/2018 [facility] Diastolic (mm Hg) 71 05/11/2018 [facility] Heart Rate 60 {beats}/min 05/11/2018 [facility] Systolic (mm Hg) 131 05/11/2018 [facility] Diastolic (mm Hg) 70 05/11/2018 [facility] Heart Rate 67 {beats}/min 05/11/2018 [facility]: [facility] Systolic (mm Hg) 116 05/10/2018 [facility]: [facility] Diastolic (mm Hg) 63 05/10/2018 [facility] Heart Rate 60 {beats}/min 05/10/2018 [facility]: [facility] Systolic (mm Hg) 118 05/09/2018 [facility]: [facility] Diastolic (mm Hg) 96 05/09/2018 [facility]: [facility] Heart Rate 62 {beats}/min 05/09/2018 [facility]: [facility] Systolic (mm Hg) 150 05/09/2018 [facility] Diastolic (mm Hg) 66 05/09/2018 [facility] Heart Rate 66 {beats}/min 05/09/2018 [facility] Systolic (mm Hg) 128 05/08/2018 [facility]: [facility] Diastolic (mm Hg) 62 05/08/2018 [facility]: [facility] Heart Rate 69 {beats}/min 05/08/2018 [facility] Systolic (mm Hg) 144 05/07/2018 [facility]: [facility] Diastolic (mm Hg) 78 05/07/2018 [facility] Heart Rate 64 {beats}/min 05/07/2018 [facility] Height 62 05/06/2018 [facility]: [facility] Systolic (mm Hg) 124 05/06/2018 [facility]: [facility] Diastolic (mm Hg) 68 05/06/2018 [facility]: [facility] Heart Rate 65 {beats}/min 05/06/2018 [facility] Systolic (mm Hg) 117 05/06/2018 [facility] Diastolic (mm Hg) 62 05/06/2018 [facility] Heart Rate 77 {beats}/min 05/06/2018 [facility] Systolic (mm Hg) 131 05/05/2018 [facility] Diastolic (mm Hg) 60 05/05/2018 [facility] Heart Rate 61 {beats}/min 05/05/2018 [facility] Systolic (mm Hg) 134 05/05/2018 [facility] Diastolic (mm Hg) 62 05/05/2018 [facility] Heart Rate 88 {beats}/min 05/05/2018 [facility] Systolic (mm Hg) 129 05/04/2018 [facility] Diastolic (mm Hg) 65 05/04/2018 [facility] Heart Rate 60 {beats}/min 05/04/2018 [facility]: [facility] Systolic (mm Hg) 120 05/04/2018 [facility]: [facility] Diastolic (mm Hg) 63 05/04/2018 [facility] Heart Rate 67 {beats}/min 05/04/2018 [facility] Systolic (mm Hg) 131 05/03/2018 [facility] Diastolic (mm Hg) 64 05/03/2018 [facility] Heart Rate 61 {beats}/min 05/03/2018 [facility] Systolic (mm Hg) 119 05/03/2018 [facility] Diastolic (mm Hg) 63 05/03/2018 [facility] Heart Rate 72 {beats}/min 05/03/2018 [facility] Systolic (mm Hg) 138 05/02/2018 [facility]: [facility] Diastolic (mm Hg) 76 05/02/2018 [facility] Heart Rate 80 {beats}/min 05/02/2018 [facility] Systolic (mm Hg) 140 05/01/2018 [facility] Diastolic (mm Hg) 67 05/01/2018 [facility] Heart Rate 82 {beats}/min 05/01/2018 [facility] Systolic (mm Hg) 133 05/01/2018 [facility] Diastolic (mm Hg) 65 05/01/2018 [facility] Heart Rate 83 {beats}/min 05/01/2018 [facility]: [facility] Systolic (mm Hg) 136 04/30/2018 [facility]: [facility] Diastolic (mm Hg) 67 04/30/2018 [facility] Heart Rate 78 {beats}/min 04/30/2018 [facility]: [facility] Systolic (mm Hg) 147 04/30/2018 [facility] Diastolic (mm Hg) 60 04/30/2018 [facility] Heart Rate 73 {beats}/min 04/30/2018 [facility] Systolic (mm Hg) 149 04/29/2018 [facility]: [facility] Diastolic (mm Hg) 70 04/29/2018 [facility] Heart Rate 66 {beats}/min 04/29/2018 [facility] Systolic (mm Hg) 117 04/29/2018 [facility] Diastolic (mm Hg) 64 04/29/2018 [facility] Heart Rate 71 {beats}/min 04/29/2018 [facility] Systolic (mm Hg) 118 04/29/2018 [facility] Diastolic (mm Hg) 70 04/29/2018 [facility] Heart Rate 62 {beats}/min 04/29/2018 [facility] Weight 122 04/28/2018 [facility] Systolic (mm Hg) 127 04/28/2018 [facility] Diastolic (mm Hg) 63 04/28/2018 [facility] Heart Rate 78 {beats}/min 04/28/2018 [facility] Systolic (mm Hg) 148 04/28/2018 [facility] Diastolic (mm Hg) 68 04/28/2018 [facility] Temperature Oral (F) 97.8 F 04/28/2018 [facility]: [facility] Heart Rate 70 {beats}/min 04/28/2018 [facility] Heart Rate 85 04/28/2018 [facility] [...] 04/27/2018 [facility] Systolic (mm Hg) 129 04/27/2018 [facility] Diastolic (mm Hg) 76 04/27/2018 [facility] Respitory Rate 18 04/27/2018 [facility] BMI Calculated 24.01 04/23/2018 [facility] Weight 59.545 04/23/2018 [facility] Height 157.48 cm 04/23/2018 [facility] Height 152.4 cm 04/22/2018 [facility] BMI Calculated 24.46 04/22/2018 [facility] Weight 56.818 04/22/2018 [facility] Respitory Rate 18 04/13/2018 [facility] Heart Rate 64 04/13/2018 [facility] Systolic (mm Hg) 139 04/13/2018 [facility] Diastolic (mm Hg) 58 04/13/2018 [facility] Temperature Oral (F) 98.4 F 04/13/2018 [facility] Systolic (mm Hg) 153 04/13/2018 [facility] Diastolic (mm Hg) 63 04/13/2018 [facility] Systolic (mm Hg) 166 04/13/2018 [facility] Diastolic (mm Hg) 52 04/13/2018 [facility] Heart Rate 62 04/13/2018 [facility] Temperature Oral (F) 98.1 F 04/13/2018 [facility] Respitory Rate 16 04/13/2018 [facility] Systolic (mm Hg) 132 03/31/2018 [facility]: [facility] Diastolic (mm Hg) 69 03/31/2018 [facility]: [facility] Heart Rate 73 {beats}/min 03/31/2018 [facility]: [facility] Systolic (mm Hg) 131 03/30/2018 [facility] Diastolic (mm Hg) 66 03/30/2018 [facility] Heart Rate 68 {beats}/min 03/30/2018 [facility] Systolic (mm Hg) 119 03/30/2018 [facility] Diastolic (mm Hg) 57 03/30/2018 [facility] Heart Rate 69 {beats}/min 03/30/2018 [facility] Systolic (mm Hg) 128 03/29/2018 [facility] Diastolic (mm Hg) 67 03/29/2018 [facility] Heart Rate 72 {beats}/min 03/29/2018 [facility]: [facility] Systolic (mm Hg) 131 03/29/2018 [facility]: [facility] Diastolic (mm Hg) 64 03/29/2018 [facility]: [facility] Heart Rate 66 {beats}/min 03/29/2018 [facility]: [facility] Systolic (mm Hg) 121 03/28/2018 [facility]: [facility] Diastolic (mm Hg) 60 03/28/2018 [facility] Heart Rate 67 {beats}/min 03/28/2018 [facility] Systolic (mm Hg) 112 03/28/2018 [facility] Diastolic (mm Hg) 60 03/28/2018 [facility] Heart Rate 74 {beats}/min 03/28/2018 [facility] Systolic (mm Hg) 135 03/26/2018 [facility]: [facility] Diastolic (mm Hg) 64 03/26/2018 [facility]: [facility] Heart Rate 70 {beats}/min 03/26/2018 [facility] Systolic (mm Hg) 110 03/26/2018 [facility] Diastolic (mm Hg) 58 03/26/2018 [facility]: [facility] Heart Rate 71 {beats}/min 03/26/2018 [facility]: [facility] Systolic (mm Hg) 112 03/25/2018 [facility]: [facility] Diastolic (mm Hg) 60 03/25/2018 [facility] Heart Rate 75 {beats}/min 03/25/2018 [facility]: [facility] Systolic (mm Hg) 126 03/25/2018 [facility] Diastolic (mm Hg) 81 03/25/2018 [facility] Heart Rate 76 {beats}/min 03/25/2018 [facility] Systolic (mm Hg) 125 03/24/2018 [facility] Diastolic (mm Hg) 60 03/24/2018 [facility] Heart Rate 72 {beats}/min 03/24/2018 [facility] Systolic (mm Hg) 136 03/24/2018 [facility] Diastolic (mm Hg) 61 03/24/2018 [facility] Heart Rate 83 {beats}/min 03/24/2018 [facility] Systolic (mm Hg) 115 03/23/2018 [facility] Diastolic (mm Hg) 64 03/23/2018 [facility] Heart Rate 76 {beats}/min 03/23/2018 [facility] Systolic (mm Hg) 113 03/23/2018 [facility] Diastolic (mm Hg) 57 03/23/2018 [facility] Heart Rate 74 {beats}/min 03/23/2018 [facility] Systolic (mm Hg) 110 03/22/2018 [facility] Diastolic (mm Hg) 60 03/22/2018 [facility] Heart Rate 73 {beats}/min 03/22/2018 [facility] Systolic (mm Hg) 124 03/22/2018 [facility] Diastolic (mm Hg) 60 03/22/2018 [facility] Heart Rate 81 {beats}/min 03/22/2018 [facility] Systolic (mm Hg) 126 03/21/2018 [facility] Diastolic (mm Hg) 66 03/21/2018 [facility] Heart Rate 78 {beats}/min 03/21/2018 [facility] Systolic (mm Hg) 120 03/19/2018 [facility] Diastolic (mm Hg) 60 03/19/2018 [facility] Heart Rate 70 {beats}/min 03/19/2018 [facility] Systolic (mm Hg) 129 03/19/2018 [facility] Diastolic (mm Hg) 66 03/19/2018 [facility] Heart Rate 73 {beats}/min 03/19/2018 [facility] Systolic (mm Hg) 133 03/18/2018 [facility] Diastolic (mm Hg) 75 03/18/2018 [facility] Heart Rate 76 {beats}/min 03/18/2018 [facility]: [facility] Systolic (mm Hg) 112 03/18/2018 [facility] Diastolic (mm Hg) 67 03/18/2018 [facility] Heart Rate 78 {beats}/min 03/18/2018 [facility] Systolic (mm Hg) 125 03/17/2018 [facility] Diastolic (mm Hg) 68 03/17/2018 [facility] Heart Rate 82 {beats}/min 03/17/2018 [facility] Systolic (mm Hg) 116 03/17/2018 [facility] Diastolic (mm Hg) 60 03/17/2018 [facility] Heart Rate 96 {beats}/min 03/17/2018 [facility] Systolic (mm Hg) 123 03/16/2018 [facility] Diastolic (mm Hg) 60 03/16/2018 [facility] Heart Rate 80 {beats}/min 03/16/2018 [facility] Systolic (mm Hg) 131 03/16/2018 [facility] Diastolic (mm Hg) 61 03/16/2018 [facility] Heart Rate 84 {beats}/min 03/16/2018 [facility] Weight 128 03/16/2018 [facility] Height 62 03/16/2018 [facility] Systolic (mm Hg) 125 03/15/2018 [facility] Diastolic (mm Hg) 68 03/15/2018 [facility] Heart Rate 75 {beats}/min 03/15/2018 [facility] Systolic (mm Hg) 114 03/15/2018 [facility] Diastolic (mm Hg) 84 03/15/2018 [facility] Heart Rate 86 {beats}/min 03/15/2018 [facility] Systolic (mm Hg) 133 03/14/2018 [facility] Diastolic (mm Hg) 71 03/14/2018 [facility] Heart Rate 80 {beats}/min 03/14/2018 [facility] Systolic (mm Hg) 129 03/14/2018 [facility] Diastolic (mm Hg) 60 03/14/2018 [facility] Heart Rate 84 {beats}/min 03/14/2018 [facility] Systolic (mm Hg) 130 03/14/2018 [facility] Diastolic (mm Hg) 68 03/14/2018 [facility] Heart Rate 78 {beats}/min 03/14/2018 [facility] Systolic (mm Hg) 146 03/13/2018 [facility] Diastolic (mm Hg) 58 03/13/2018 [facility] Heart Rate 81 {beats}/min 03/13/2018 [facility] Systolic (mm Hg) 131 03/12/2018 [facility] Diastolic (mm Hg) 72 03/12/2018 [facility] Heart Rate 68 {beats}/min 03/12/2018 [facility] Systolic (mm Hg) 135 03/12/2018 [facility] Diastolic (mm Hg) 66 03/12/2018 [facility] Heart Rate 75 {beats}/min 03/12/2018 [facility] Systolic (mm Hg) 132 03/12/2018 [facility] Diastolic (mm Hg) 78 03/12/2018 [facility]: [facility] Temperature Oral (F) 97.6 F 03/12/2018 [facility]: [facility] Respitory Rate 18 03/12/2018 [facility]: [facility] Heart Rate 76 {beats}/min 03/12/2018 [facility] Systolic (mm Hg) 128 03/11/2018 [facility] Diastolic (mm Hg) 60 03/11/2018 [facility]: [facility] Heart Rate 84 {beats}/min 03/11/2018 [facility] Heart Rate 78 03/11/2018 [facility] Respitory Rate 16 03/11/2018 [facility] Systolic (mm Hg) 109 03/11/2018 [facility] Diastolic (mm Hg) 64 03/11/2018 [facility] Temperature Oral (F) 98.4 F 03/11/2018 [facility] Systolic (mm Hg) 113 03/11/2018 [facility] Diastolic (mm Hg) 64 03/11/2018 [facility] Respitory Rate 16 03/11/2018 [facility] Heart Rate 74 03/11/2018 [facility] Temperature Oral (F) 97.9 F 03/11/2018 [facility] Systolic (mm Hg) 109 03/11/2018 [facility] Diastolic (mm Hg) 65 03/11/2018 [facility] Respitory Rate 16 03/11/2018 [facility] Heart Rate 76 03/11/2018 [facility] Temperature Oral (F) 98.0 F 03/11/2018 [facility] Height 62 03/09/2018 SNF: [facility] Weight 128 03/09/2018 SNF: [facility] Weight 60.909 03/05/2018 [facility] BMI Calculated 24.56 03/05/2018 [facility] Height 157.48 cm 03/05/2018 [facility] Encounters Location Location Details Encounter Type Encounter Number Reason For Visit Attending Provider ADM Date DC Date Status Source [facility] [place] [facility] [id number] Afshin Marie 11/28/2015 11/29/2015 [facility] [place] [facility] [place] [facility] [id number] Afshin Marie 04/21/2016 04/22/2016 [facility] [place] [facility] [place] [facility] [id number] Afshin Marie 08/04/2017 08/05/2017 [facility] Inpatient [id number] Yoni Ann 03/05/2018 03/11/2018 [facility] Emergency [id number] John Sheldonwuma 04/13/2018 04/13/2018 [facility] Inpatient [id number] Shaun Moyaarya 04/22/2018 04/28/2018 [facility] Procedures Procedure Code Date Perfomer Comments Source ORIF - Open reduction and internal fixation of fracture [id number] 03/05/2018 [facility] Assessment and Plan Assessment and Plan Date Source Extracted from:Title: Clinical Document Author: Augustina Calero NP Date: 04/27/18 [facility] PATIENT NAME: NICK CURRIE ATTENDING PHYSICIAN: ROCYE FATIMA CONSULTING PHYSICIAN: Augusitna Gorman MANAGER DAIRY DATE OF CONSULT: 04/27/2018 REASON FOR CONSULT: [...] CT lumbar 3. F/u in clinic at [phone] in 1-2 weeks. Augustina Calero MANAGER DAIRY 04/28/2018 [place] Extracted from:Title: Discharge Summary * Author: Yoni Ann MD Date: 03/11/18 Discharge Information Disposition: long-term facility Condition: Stable Medications: See med reconciliation [...] risk reduction. Continue rehabilitation therapies. Continue Lovenox. -[place] out POD 14 2. Acute postoperative left [...] We are recommending a referral to the shelter center with 1 to 2 hours of therapy per day and 24-hour nursing care. Case mgmt has contacted family. -Plan for SNF today. 03/11/2018 [facility] Plan of Care No Data Provided for [...] Cessation Counseling No entered on: 04/23/18 04/23/2018 [facility] No data available for this section 08/05/2017 [...]
--- NOTE | 2019-06-09 14:16 | NUR ---
ASST VIA WC TO RESTROOM FOR UA
[2019-06-09 14:31] LABS: BILIRUBIN,URINE NEGATIVE (NEGATIVE); CLARITY,URINE SL CLOUDY (CLEAR); COLOR,URINE YELLOW (YELLOW); KETONES,URINE TRACE (NEGATIVE); LEUKOCYTE ESTERASE ,URINE NEGATIVE (NEGATIVE); NITRITE,URINE NEGATIVE (NEGATIVE); PROTEIN,URINE DIPSTICK NEGATIVE (NEGATIVE); URINE UROBILINOGEN 0.2 mg/dL (0.2 - 1)
[2019-06-09 14:50] LABS: AMORPHOUS SEDIMENT,URINE FEW (FEW); BACTERIA,URINE MODERATE /HPF
[2019-06-09 15:52] LABS: ABG HCO3 20 mmol/L (23-28); ABG PCO2 34 mmHg (41-51); ABG PH 7.38 (7.31-7.41); ABG PO2 88 mmHg (80-105)
[2019-06-09] MEDS: FAMOTIDINE 20 MG/2 ML VIAL IV SCH (16:41)
--- NOTE | 2019-06-09 17:35 | NUR ---
CALLED TWICE FOR FOOD TRAY, STILL NOT ARRIVED, PT UPSET
--- NOTE | 2019-06-09 18:20 | NUR ---
REPORT RECEIVED FROM ER, PATIENT TO ARRIVE TO UNIT VIA STRETCHER, ALERT AND ORIENTED.
--- NOTE | 2019-06-09 19:04 | NUR ---
REPORT TO [facility]
[2019-06-09 19:20] VITALS: BP 117/56
[2019-06-09 20:15] LABS: CREATINE KINASE MB 2.4 ng/mL (0-5.0)
--- NOTE | 2019-06-09 20:29 | NUR ---
NOTIFIED DR. CASILLAS [facility] [place]. NO NEW ORDERS.
[2019-06-09 20:40] VITALS: BP 117/56
[2019-06-09 21:12] VITALS: BP 117/56
[2019-06-10] VITALS (16 sets, daily range): BP systolic 107–155; BP diastolic 46–111
[2019-06-10] MEDS ORDERED: ACETAMINOPHEN 325 MG TAB PO PRN ×2 (01:00→14:30)
[2019-06-10] MEDS: FAMOTIDINE 20 MG/2 ML VIAL IV SCH (01:09)
[2019-06-10 06:50] LABS: BASOPHILS % 0.7 % (0.0-1.0); EOSINOPHILS # (AUTO) 0.3 (0.0-0.4); EOSINOPHILS % 4.9 % (0.0-6.0); HEMOGLOBIN 13.3 g/dL (12.0-16.0); LYMPHOCYTES # (AUTO) 1.6 (1.0-3.2); LYMPHOCYTES % 28.5 % (18.0-39.1); MEAN CORPUSCULAR HEMOGLOBIN 31.9 pg (28-32); MEAN CORPUSCULAR HGB CONC 33.3 g/dL (31-35); MEAN CORPUSCULAR VOLUME 95.9 fL (81-99); MONOCYTES # (AUTO) 0.6 (0.2-0.8); MONOCYTES % 10.4 % (4.4-11.3); NEUTROPHILS # (AUTO) 3.1 (2.1-6.9); PLATELET COUNT 243 x10e3/uL (140-360); RED BLOOD COUNT 4.17 x10e6/uL (3.6-5.1); RED CELL DISTRIBUTION WIDTH 12.9 % (11.7-14.4)
--- NOTE | 2019-06-10 07:00 | NUR ---
Pt received in bed with eyes open. AOx4 and able to verbalize needs. Denies any pain at this time. Pt denies SOB.
[2019-06-10 07:09] LABS: ALANINE AMINOTRANSFERASE 8 IU/L (0-55); ALBUMIN 3.5 g/dL (3.5-5.0); ALBUMIN/GLOBULIN RATIO 1.1 (0.8-2.0); ALKALINE PHOSPHATASE 61 IU/L (40-150); ANION GAP 14.6 mmol/L (8-16); BLOOD UREA NITROGEN 16 mg/dL (7-26); BUN/CREATININE RATIO 21 (6-25); CALCIUM 9.7 mg/dL (8.4-10.2); CARBON DIOXIDE 25 mmol/L (22-29); CHLORIDE 104 mmol/L (98-107); CREATININE, SERUM 0.78 mg/dL (0.57-1.11); EST GLOMERULAR FILTRATION RATE > 60 ML/MIN (60-); GLUCOSE 87 mg/dL (74-118); POTASSIUM 4.6 mmol/L (3.5-5.1); SODIUM 139 mmol/L (136-145)
[2019-06-10] MEDS ORDERED: ASPIRIN 81 MG ENTERIC COATED PO SCH (09:00)
--- NOTE | 2019-06-10 09:00 | NUR ---
Dr. Calero here to see pt and spoke with family and discussed lab results and explained options to pt and family. Pt decided she wants to have cardiac cath. Dr. Calero spoke with attending.
[2019-06-10] MEDS ORDERED: SODIUM CHLORIDE 0.9% 1000ML 1,000 ML IV SCH (09:05)
[2019-06-10] MEDS ORDERED: PANTOPRAZOLE SOD 40 MG TABEC PO PRN (09:15)
[2019-06-10] MEDS ORDERED: BACLOFEN 10 MG TAB PO PRN (09:30)
[2019-06-10] MEDS ORDERED: BACLOFEN10 MG PO (09:32)
--- NOTE | 2019-06-10 11:05 | Diagnostic Imaging Report ---
History: Dizziness Comparison studies: None Technique: Sagittal T2; axial DWI, FLAIR, MPGR, T1, Coronal FLAIR. Intravenous contrast: None Findings: Scalp: Normal in signal . No masses . Bone marrow: Normal in signal intensity. Extra-axial: No masses, no fluid collections. Brain sulci: Appropriate for age. Ventricles: Normal in size . No hydrocephalus . Parenchyma: Scattered small T-2/flair hyperintensities of the periventricular and deep white matter, nonspecific. Cortical based T2/flair hyperintensity and volume loss at the right yulissa calcarine sulcus region. No masses, hemorrhage or acute vascular insults. Suprasellar region: No abnormalities. Craniocervical junction: No abnormalities. Patent foramen magnum. No Chiari one malformation. Vessels: Normal flow-voids in the arteries and sinuses. Mucosal thickening at the right maxillary, bilateral ethmoid and right sphenoid sinuses, related to nonspecific inflammatory changes. Bilateral cataract surgery changes. IMPRESSION: 1. No acute abnormalities. 2. Mild chronic microvascular ischemic changes of the white matter. Matter and mild diffuse volume loss. 3. Remote insult at the right yulissa calcarine sulcus region. 4. Nonspecific inflammatory changes of the right paranasal sinuses Signed by: DR Reynold Florence M.D. on 06/10/2019 11:02 AM
--- NOTE | 2019-06-10 11:13 | Diagnostic Imaging Report ---
Examination: CT head without contrast Clinical Indication: Dizziness. Technique: Transaxial noncontrast images from the skull base through the vertex were obtained. Sagittal and coronal reformatted images were done. Dose modulation, iterative reconstruction, and/or weight based adjustment of the mA/kV was utilized to reduce the radiation dose to as low as reasonably achievable. Comparison: Brain MRI performed June 10, 2019. Findings: Scalp: No abnormalities. Bones: Intact. No fractures. No blastic or lytic lesions. Brain sulci: Mild volume loss for patient's age. Ventricles: No hydrocephalus. Extra-axial space: No abnormalities. Parenchyma: There are patchy and confluent areas of low-attenuation within subcortical and periventricular white matter, nonspecific, but could represent microvascular ischemic disease. No masses, hemorrhage, or acute or chronic cortical based vascular insults. Suprasellar region: No abnormalities. Craniocervical junction: The foramen magnum is patent. No Chiari one malformation. Incidental findings: Partially opacified right sphenoid sinus. Impression: 1. No new or acute intracranial finding when compared to prior brain MRI performed June 10, 2019. 2. Unchanged mild chronic microvascular ischemic change and volume loss. Signed by: Dr. Gela Alaniz M.D. on 06/10/2019 11:10 AM
[2019-06-10] MEDS ORDERED: MIDAZOLAM HCL 2 MG/2 ML VIAL ONE (11:36)
[2019-06-10] MEDS ORDERED: LIDOCAINE HCL 2% LOCAL 20 ML VIAL ONE (11:37)
[2019-06-10] MEDS ORDERED: FENTANYL CITRATE/PF 100MCG/2 ML INJ ONE (11:37)
[2019-06-10] MEDS ORDERED: HEPARIN SOD/SOD CHLORIDE 2,000 ML ONE (11:37)
[2019-06-10] MEDS ORDERED: IOPAMIDOL 370 MG/ML 200 ML INFUS..BTL INJ ONE ×3 (11:38→13:43)
[2019-06-10] MEDS ORDERED: SODIUM CHLORIDE 0.9% 1000ML 0 ML ONE (11:45)
--- NOTE | 2019-06-10 11:47 | NUR ---
Notified Dr. Calero of blood clot to right cephalic vein and no orders at this time. Pt is getting ready to go heart cath. SUPERVISING AIRPLANE PILOT for Dr Alonso notified and waiting for call back.
[2019-06-10] MEDS ORDERED: DIPHENHYDRAMINE HCL INJ 50 MG/ML VIAL ONE (12:12)
[2019-06-10] MEDS ORDERED: HYDRALAZINE HCL 20 MG/ML VIAL ONE (12:27)
[2019-06-10] MEDS ORDERED: EPTIFIBATIDE 10 ML ONE (12:55)
[2019-06-10] MEDS ORDERED: EPTIFIBATIDE 75mg 100ML 100 ML ONE (12:56)
[2019-06-10] MEDS: SODIUM CHLORIDE 0.9% 1000ML 1,000 ML IV SCH ×2 (14:19→20:14)
--- NOTE | 2019-06-10 14:33 | NUR ---
Pt currently in Underwriting Consultant and then will transfer to ICU after the procedure per nurse Telles. Will need MD to resume PT in ICU. Addendum: 06/10/19 at 1434 by Will Tse PT Amended: Links added.
--- NOTE | 2019-06-10 14:47 | NUR ---
Notified attending that pt will be transferred to ICU after cardiac cath. LAND MANAGEMENT SUPERVISOR for Dr. Alonso states she has spoken to Dr. Calero. Received orders for heat pack to right arm PRN for cephalic blood clot.
--- NOTE | 2019-06-10 15:05 | NUR ---
1505pm Received handoff from Rodrick BRIDGES who placed pt in Rm #9 from Rm #8.States urine catheterization was completed and pt was a s/p no fix peripheral angio.Dr Calero and to return to Rm 287 once sheath pulled to rt groin site. Pt received Versed 25, Benedryl, Integrilin bolus and drip which is completed. Last ACT 280. Hydralazine 5mg x2 Ivp given for elevated b/p in hatchery laborer. I alerted procedural hatchery laborer Rn Sergio to examine rt groin noted oozing to leg at sheath site. Nurse stated was re-dressed once for bleeding and he assumed care. Alert oriented and appropriate, PERRLA, respirations even and unlabored to room air. Pulses x4 DPx2 strong PT weak x2.and cool . However,Cap fill brisk < 3 sec. Other sites skin warm and dry integrity appears D/I. IV 20g to left arm presents healthy w/o s/s of infiltration or complaint.Remains patent with approx 300cc of NS. Abdomen soft and supple. pt offered toileting, denies need to urinate or defecate. No personal affects with patient. No family at bedside.Pt remain NPO til sheath pull. 1707pm Sergio Rn proceeded with sheath pull .Atropine and RN assist at bedside. Pressure was held 20min and Blessing patch applied with Tegaderm.Stasis achieved at 17:32p and no signs of hematoma or oozing. Marked called report to floor staff services manager Patty. 1800pm Assisted with DRUG ROOM OPERATOR assist and Zoll monitor to floor care with Face to Face handoff to Koki BRIDGES. Tele applied and report to monitor room given. Pt appear in no distress. NO gross issues of pain ,pallor, pressure or dysrhythmia. I left pt in room with RN at bedside,call light at reach,bed low position and side rails up.Staff and pt and aware of downtime till 2130pm. Tray at beside and instruction given to staff rn of Trendelenburg position height that was acceptable. Pt aware of plan of care instructions. ds/rn
--- NOTE | 2019-06-10 17:00 | NUR ---
Pt returned from lab engineer at this time. Pt is aox3 and able to verbalize needs. Pt is to remain on bedrest until 2330 this evening. Right groin dressing over puncture site is dry and intact. Pulses are good are strong to bilateral lower ext.
[2019-06-10] MEDS ORDERED: ATROPINE SULFATE 0.1 MG/ML 10ML SYR ONE (17:07)
--- NOTE | 2019-06-10 19:36 | Operative Report ---
DATE OF PROCEDURE: 06/10/2019 SURGEON: Hao Calero MD PROCEDURES: Cardiac catheterization and intervention report INDICATIONS FOR THE PROCEDURE: Abnormal troponins. DESCRIPTION OF PROCEDURE: The patient was brought to the Rag Willow Operator in the fasting state. Premedicated with 25 mg of Benadryl IV push. The right groin was prepped with scrub and 2% Xylocaine and a 4-[place] Islander sheath placed in the right common femoral artery. Blood pressure was 200/100. She was given a total of 10 mg of hydralazine intravenously and additional 0.25 mg of Versed and additional 25 mg of Benadryl. Cardiac catheterization performed with 4-[place] Islander pigtail and 4-[place] Islander right and left Anthony catheters. The left ventricular function appears to be normal with estimated ejection fraction of 70%. The left main, circumflex, OM, LAD, and diagonals were all free from any significant plaquing. The aortic root is significantly dilated and considerable difficult in engaging the right coronary artery, eventually done with a diagnostic AR Mod 2. The right coronary is a dominant vessel with one discrete lesions midportion about 99% stenosis. Flow was RICKY-3. Then, the sheath was exchanged for a 6-[place] Islander sheath and she is given 5500 units of heparin and Integrilin bolus and drip was started. Multiple guiding catheters were used without adequate engagement of the right coronary artery. The guides used were AR Mod 1 six-[place] Islander, AR Mod 2 six-[place] Islander, the six-[place] Islander multipurpose and the six-[place] Islander XB RCA. Although, wire was attempted to be passed into the right coronary, it did not make significant advance without pushing the guiding catheter back out. The lesion was actually not engaged and there was no change at the end of the procedure. A total of approximately 300 mL of iodine contrast was used and the patient's blood pressure at the end of the case was about 140/80. She is in sinus rhythm and comfortable. She has sent to the recovery area as her ACT is 280 seconds. She will be monitored and her sheath will be pulled when her ACT is less than 180 seconds. Further management will be arranged after discussion with the attending and the family. FINAL IMPRESSION: 1. Normal left ventricular function. EF about 70%. 2. 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 3. 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 4. No significant plaquing throughout the left main and left coronary systems. 5. Unsuccessful attempt at coronary intervention without complication. ESTIMATED BLOOD LOSS: No significant blood loss. COMPLICATIONS: No complications. CONDITION: Stable. MD CHRISTOPHER No/ELISHA /[id number]
--- NOTE | 2019-06-10 20:00 | NUR ---
Received change of shift report from AM Nurse. Walking rounds completed.
--- NOTE | 2019-06-10 20:23 | NUR ---
Patient c/o of needing something for sleep. Called [facility] STATISTICIAN APPLIED to get order for melatonin. Order completed.
[2019-06-10] MEDS ORDERED: MELATONIN 3 MG TAB PO PRN (20:30)
[2019-06-11 00:34] VITALS: BP 114/51
[2019-06-11 04:59] VITALS: BP 99/48
[2019-06-11 05:56] LABS: BASOPHILS # (AUTO) 0.1 (0.0-0.1); BASOPHILS % 0.6 % (0.0-1.0); EOSINOPHILS # (AUTO) 0.1 (0.0-0.4); HEMATOCRIT 35.8 % (34.2-44.1); HEMOGLOBIN 11.8 g/dL (12.0-16.0); LYMPHOCYTES # (AUTO) 1.2 (1.0-3.2); LYMPHOCYTES % 13.6 % (18.0-39.1); MEAN CORPUSCULAR HEMOGLOBIN 31.2 pg (28-32); MEAN CORPUSCULAR VOLUME 94.7 fL (81-99); MONOCYTES # (AUTO) 0.9 (0.2-0.8); MONOCYTES % 10.4 % (4.4-11.3); NEUTROPHILS # (AUTO) 6.4 (2.1-6.9); NEUTROPHILS % 74.1 % (38.7-80.0); PLATELET COUNT 208 x10e3/uL (140-360); RED BLOOD COUNT 3.78 x10e6/uL (3.6-5.1)
--- NOTE | 2019-06-11 06:18 | NUR ---
Patient resting qiutly with no c/o at this time. Continue monitor.
[2019-06-11 06:23] LABS: ANION GAP 12.6 mmol/L (8-16); BLOOD UREA NITROGEN 17 mg/dL (7-26); BUN/CREATININE RATIO 20 (6-25); CALCIUM 9.2 mg/dL (8.4-10.2); CARBON DIOXIDE 23 mmol/L (22-29); CHLORIDE 106 mmol/L (98-107); CREATININE, SERUM 0.87 mg/dL (0.57-1.11); EST GLOMERULAR FILTRATION RATE > 60 ML/MIN (60-); GLUCOSE 91 mg/dL (74-118); POTASSIUM 4.6 mmol/L (3.5-5.1); SODIUM 137 mmol/L (136-145)
[2019-06-11 08:00] VITALS: BP 120/52
[2019-06-11 08:48] VITALS: BP 120/52
[2019-06-11] MEDS ORDERED: AMIODARONE HCL 200 MG TAB PO SCH (09:00)
[2019-06-11] MEDS ORDERED: ASPIRIN 325 MG TAB PO SCH (09:00)
--- NOTE | 2019-06-11 10:11 | NUR ---
Spoke with Dr. Haq related to MRI results. Dr. Haq states this is not an acute neuro episode and pt can come see her outpt. GRANULATOR for Dr. Alonso made aware of what was said by Dr. Haq.
[2019-06-11 12:30] VITALS: BP 111/48
--- NOTE | 2019-06-11 14:19 | Consultation ---
DATE OF CONSULTATION: 06/10/2019 Cardiology Consultation Thank you so much for asking me to see this nice lady again in consultation. HISTORY OF PRESENT ILLNESS: Ms. Rodrigez is a pleasant, but elderly 89-year-old woman, who was discharged from [facility] a couple of weeks ago with previous problems with weakness, dizziness, and shortness of breath. At home, the daughter tells me that she has not been taking her amiodarone and that feels weak and dizzy sometimes. PAST MEDICAL HISTORY: Significant for previous hospitalizations at [facility] in November 2018 for a hip fracture and in May for shortness of breath. She has had multiple previous hospitalizations with appendectomy, cholecystectomy, foot surgery, previous stroke, and arthritis. Also hospitalized in September 2017 for gastroenteritis. Her hip fracture was actually in February of 2018, left side at [facility]. CURRENT MEDICATIONS: At home include aspirin 81 mg daily and omeprazole. PERSONAL AND SOCIAL HISTORY: She does not smoke or drink. Lives with her family today. PHYSICAL EXAMINATION: GENERAL: Shows an alert, responsive woman. VITAL SIGNS: Blood pressure 130/70, pulse is 60 and regular. HEAD, EYES, EARS, NOSE, AND THROAT: Unremarkable. NECK: No jugular venous distention. THORAX: Heart sounds S1 and S2 are equal. No murmurs. LUNGS: Clear. ABDOMEN: Protuberant. PERTINENT LABORATORY STUDIES: Show elevated troponin. BUN 16 and creatinine 0.78. Hemoglobin 13.3. ASSESSMENT: 1. Abnormal troponins. 2. Recent episode of atrial fibrillation. 3. Hypertension. PLAN: The patient and family have decided they prefer invasive evaluation at this time. We will plan to perform cardiac catheterization later today with further management based on results of study. MD CHRISTOPHER No/ELISHA /[id number]
[2019-06-11] MEDS ORDERED: ASPIRIN325 MG PO (16:04)
--- NOTE | 2019-06-11 16:37 | NUR ---
Pt discharged at this time. Family at the bedside at time of discharge. Pt and family verbalized understanding of all discharge instructions. Pt is to go see Cardiology in [facility] on thursday06/13/19.
--- NOTE | 2019-06-12 01:21 | Discharge Summary ---
ADMISSION DIAGNOSES: Chest pain with elevated troponin, atrial fibrillation, gastroesophageal reflux disease, dizziness, bilateral arm pain. 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 HISTORY: The patient has a history of AFib with RVR, GERD, TIA, and CVA. SURGICAL HISTORY: Left leg surgery, left hip surgery, left knee surgery, left wrist surgery, left foot surgery, hysterectomy. FAMILY HISTORY: The patient's brother, aunt, and nephew have cancer. The patient's sister had a heart attack. SOCIAL HISTORY: Noncontributory. HOSPITAL COURSE: An 89-year-old female presents with substernal chest pain, that did not radiate, that began when she was walking to the restroom. At the same time, she had dizziness. The pain was sharp and lasted only a few minutes. Nothing improved or worsened the pain. On admission, her troponins were 0.04, 0.830, 0.742. The patient was resumed on aspirin as taken at home and a heart catheterization was recommended. She was previously admitted to the hospital about a week and a half before and her and the family refused the heart catheterization. Due to the arm pain, the patient had bilateral upper extremity Doppler performed, which was positive for an acute cephalic thrombus on the right. Bilateral carotid Doppler was negative. Chest x-ray showed no pneumonia or edema. CT of the brain was negative. MRI of the brain showed a remote insult. Neurology was consulted, who said the patient can follow up outpatient as the patient is asymptomatic neurologically. Urine culture negative. Blood culture negative. 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 Cardiology had an unsuccessful attempt at coronary intervention after multiple tries. The patient will discharge home per Cardiology recommendation and follow up with a straight truck driver predetermined by Dr. Amaya at [facility] in the [facility]. The patient and family understand discharge instructions and agrees to plan. The patient was given a prescription for baclofen, which seemed to improve her arm pain as well. She is already taking aspirin and her lipid panel was within normal limits. Vital signs stable, the patient afebrile. She will follow up with primary care within 1 to 2 weeks and Cardiology on Thursday. Dictated by Dodie M Scott, DOVETAILER MD RIKI Mast/ELISHA /[id number]
--- NOTE | 2019-06-13 05:37 | Consultation ---
DATE OF CONSULTATION: 06/10/2019 Cardiology Consultation REQUESTING PHYSICIAN: Ms. Rodrigez is a pleasant, but very elderly 89-year-old woman, who was recently discharged from [facility] with problems of intermittent atrial fibrillation and shortness of breath. CHIEF COMPLAINT: She returns with a complaint that she felt weak and dizzy at home and had to lay down. The daughter at the bedside tells me that she has not been taking the amiodarone prescribed for her for intermittent atrial fibrillation because her heart rate was less than 60. PAST MEDICAL HISTORY: Significant for multiple hospitalizations including appendectomy, cholecystectomy, foot surgery, previous stroke, and arthritis. She was hospitalized in September 2017 for gastroenteritis. She was hospitalized at [facility] in February 2018 for left hip fracture repair. CURRENT MEDICATIONS: Please see the chart. PERSONAL AND SOCIAL HISTORY: She does not smoke or drink. She lives with family. Walks with a walker. PHYSICAL EXAMINATION: GENERAL: Shows a very elderly woman, who is awake, slightly hard of hearing. Seems oriented. VITAL SIGNS: Blood pressure 108/52, pulse 60 and regular. HEAD, EYES, EARS, NOSE, AND THROAT: Unremarkable. NECK: No jugular venous distention. THORAX: Heart sounds S1 and S2 are equal. No murmurs. LUNGS: Clearly. ABDOMEN: Protuberant. Normal bowel sounds. EXTREMITIES: No cyanosis, clubbing, or edema. LABORATORY DATA: EKG shows sinus rhythm. There are inverted T-waves in lateral leads. ADDENDUM: Cardiolite performed on December 01, 2018, showed normal perfusion and EF 91% ASSESSMENT: 1. Arm discomfort, may represent angina. 2. Intermittent atrial fibrillation. 3. Advanced age. 4. Abnormal troponins. PLAN: We will perform left heart catheterization today with further management based on the results of study. MD CHRISTOPHER No/ELISHA /[id number] cc: Arcadio Bobby DO
== END 2019-06-11 16:37 | disposition home or self-care (01) | DRG 287 ==
LOC: ER 11:43 → ERHOLD 13:43 → MED/SURG3 19:52 → OBSVTOIN 06-10 14:21
PROVIDERS: ADMIT Internal Medicine; ATTEND Internal Medicine
PROC: 4A023N7 Measurement of Cardiac Sampling and Pressure, Left Heart, Percutaneous Approach (ICD-10-PCS; principal; 2019-06-10)
PROC: B3101ZZ Fluoroscopy of Thoracic Aorta using Low Osmolar Contrast (ICD-10-PCS; 2019-06-10)
PROC: B2151ZZ Fluoroscopy of Left Heart using Low Osmolar Contrast (ICD-10-PCS; 2019-06-10)
PROC: B2111ZZ Fluoroscopy of Multiple Coronary Arteries using Low Osmolar Contrast (ICD-10-PCS; 2019-06-10)
DX: I25.110 Atherosclerotic heart disease of native coronary artery with unstable angina pectoris (principal); I82.619 Acute embolism and thrombosis of superficial veins of unspecified upper extremity; I48.91 Unspecified atrial fibrillation; Z79.01 Long term (current) use of anticoagulants; I25.10 Atherosclerotic heart disease of native coronary artery without angina pectoris; K21.9 Gastro-esophageal reflux disease without esophagitis; Z86.73 Personal history of transient ischemic attack (TIA), and cerebral infarction without residual deficits; R54 Age-related physical debility; R74.8 Abnormal levels of other serum enzymes
CPT/HCPCS: 36415; 36600; 70450; 70551; 71045; 80048; 80053; 81001; 82550; 82553; 82805; 83735; 83880; 84443; 84484; 85025; 85379; 85610; 85730; 87040; 87086; 93005; 93458; 93880; 93970; 99285; C1725; C1766; G0378; J0360; J1200; J1327; J2001; J2250; J3010; J7030; Q9967